=== PATIENT | male | born 1960 | race Caucasian/White ===

== ENCOUNTER 2019-06-03 20:51 | Inpatient (IN) ==
[2019-06-03] MEDS ORDERED: SODIUM CHLORIDE 0.9% 500 ML IV SCH (21:15)
[2019-06-03 21:42] LABS: Hematocrit (blood only) 35.1 % (42-52); Hemoglobin 11.3 g/dL (14.0-18.0); Mean Corpuscular Hemoglobin 30.9 pg (25-34); Mean Corpuscular Hgb Conc 32.2 g/dL (32-36); Mean Corpuscular Volume 95.9 fL (80-100); RDW Coefficient of Variation 14.6 % (11.5-14.5); Red Blood Count 3.66 M/uL (4.7-6.1); White Blood Count 3.04 K/uL (4.8-10.8)
[2019-06-03 22:01] LABS: Albumin Level 3.1 gm/dl (3.4-5.0); BUN Creatinine Ratio 14.5 (10-20); Calcium 9.2 mg/dl (8.5-10.1); Creatinine Clr Calc Pharmacy 95.2 ml/min; Est GFR (African American) 100.4; Est GFR (Non-African American) 86.7; Magnesium 1.6 mg/dl (1.8-2.4); Potassium 3.4 mmol/L (3.5-5.1)
[2019-06-03 22:04] LABS: Albumin Globulin Ratio 0.7 (0.9-2); Bilirubin,Total 0.5 mg/dl (0.2-1); Globulin 4.2 gm/dl (2.5-4.0); Total Protein 7.3 gm/dl (6.4-8.2)
[2019-06-03] MEDS ORDERED: IOVERSOL 100ml IV PRN (22:09)
[2019-06-03] MEDS ORDERED: MAGNESIUM SULFATE / D5W 1 GM/100 ML BAG IV ONE (22:22)
[2019-06-03 22:25] LABS: Appearance Urine Clear (Clear); Bacteria Urine Automated Negative (Negative); Bilirubin Urine Negative (Negative); Blood Urine Negative (Negative); Color Urine Dark Yellow; Glucose Urine UA 3+ (Negative); Ketones Urine Trace (Negative); Leukocyte Esterase Urine Negative (Negative); Nitrite Urine Negative (Negative); Protein Urine Trace (Negative); Specific Gravity Urine 1.033 (1.000-1.030); Urobilinogen Urine Negative (Negative)
[2019-06-03 22:28] LABS: Eosinophils # (auto) 0.05 K/uL (0-0.5); Eosinophils % (auto) 1.6 %; Immature Granulocytes # (auto) 0.01 K/uL (0.00-0.02); Immature Granulocytes % (auto) 0.3 %; Lymphocytes # (auto) 1.25 K/uL (1.2-3.4); Lymphocytes % (auto) 41.1 %; Mean Platelet Volume 10.2 fL (7.4-10.4); Monocytes # (auto) 0.26 K/uL (0.11-0.59); Monocytes % (auto) 8.6 %; Neutrophils # (auto) 1.47 K/uL (1.4-6.5); Neutrophils % (auto) 48.4 %; Platelet Count 68 K/uL (130-400); Platelet Estimate Decreased (Normal)
--- NOTE | 2019-06-03 22:30 | Emergency Department Note ---
Entered by Lamar Pardo acting as a scribe for History of Present Illness General Chief complaint: Diarrhea Stated complaint: BLOOD IN STOOL, DIARRHEA Time Seen by Provider: 06/03/19 21:01 History of Present Illness Provider complaint: diarrhea Onset (ago): hour(s) 2 Pain Consistency: + other (episode) Maximum Pain Intensity: 1 Current Pain Intensity: 8 Quality: + other (diarrhea) Associated symptoms: + denies other symptoms (pain) and + other (mid lower abdominal cramping, rectal pain, blood noted when wiping, resolved nausea, does not feel similar to diverticulitis, chills, nausea when eating or drinking, colon cancer, last chemo treatment 8 days ago) Treatments prior to arrival: other (Compazine for nausea) The patient is a 58 year old male who presents to the ED with complaints of an episode of diarrhea that started 2 hours ago. The patient states that he also had mid lower abdominal cramping and rectal pain. The patient states that he had a few episodes of diarrhea, but on the last episode he noticed blood when he wiped. The patient states that he felt nauseas earlier but he took Compazine which helped. The patient states that when he had the cramping, the pain was an 8/10. The patient states that he is no longer in any pain. The patient notes that he has a history of diverticulitis but states that this does not feel similar to that. The patient notes that he has had chills recently and he gets nauseas every time he eats or drinks. The patient reports that he has colon cancer and his last chemotherapy treatment was 8 days ago. Home Medications Home Medications Medication Instructions Recorded Confirmed Type metformin 1,000 mg PO BIDM 04/18/18 06/03/19 History pioglitazone 30 mg PO QAM 04/18/18 06/03/19 History Probiotic 1 cap PO QAM 08/31/18 06/03/19 History atorvastatin 40 mg PO HS 08/31/18 06/03/19 History ferrous sulfate 325 mg PO Q2D 10/02/18 06/03/19 History cyanocobalamin (vitamin B-12) 5,000 mcg PO QAM 10/13/18 06/03/19 History [Vitamin B-12] acetaminophen [Tylenol] 325 mg PO Q6H PRN 06/03/19 06/03/19 History ondansetron HCl 8 mg PO Q8H 06/03/19 06/03/19 History prochlorperazine maleate 10 mg PO Q6H PRN 06/03/19 06/03/19 History Allergies Allergy/AdvReac Type Severity Reaction Status Date / Time No Known Allergies Allergy Verified 11/23/18 05:34 Past Med/Surg History Medical History (Updated 06/03/19 @ 23:04 by Lamar Pardo) Anemia Anxiety C. 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 Diverticulitis (Acute) Diverticulitis of colon with perforation (Resolved) NO SURGERY DM type 2 (diabetes mellitus, type 2) (Chronic) DVT prophylaxis Dyslipidemia (Chronic) Hiatal hernia left inguinal hernia repair Hydronephrosis (Acute) Hydronephrosis with renal calculous obstruction (Resolved) Hyperlipidemia Kidney stones Kidney stones Left ureteral stone (Acute) Osteoarthritis SOB (shortness of breath) on exertion Surgical History History of colonoscopy History of cystoscopy STONE REMOVAL WITH STENT PLACED History of esophagogastroduodenoscopy (EGD) History of tooth extraction History of vascular access device RIGHT UPPER CHEST PLACED 09/2018 Hx of hernia repair (Chronic) Hx of tonsillectomy (Chronic) Social History Preferred Language: Chinese Communication Ability: Effective Visual Impairment: No Limitations 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 and A total of 10 systems reviewed and were otherwise negative Physical Exam Vital Signs Vital Signs - 24 hr 06/03/19 20:58 06/03/19 22:00 06/03/19 22:22 Temperature 36.7 C Temperature Source Oral Pulse Rate 108 H 98 H Pulse Rate from SpO2 Sensor Pulse Rhythm Regular Pulse Strength Normal Respiratory Rate 16 24 Respiratory Effort / Characteristics Non-Labored Respiratory Depth Normal Respiratory Pattern Regular Blood Pressure 159/99 H 123/75 Blood Pressure Mean 119 92 Blood Pressure Position Sitting Pulse Oximetry 99 Oxygen Delivery Method Room Air Sepsis Recent Fever Within 48 Hours No Sepsis Action Taken by Nursing No Action Required 06/03/19 22:30 06/03/19 22:31 Temperature Temperature Source Pulse Rate 70 72 Pulse Rate from SpO2 Sensor 69 72 Pulse Rhythm Pulse Strength Respiratory Rate 19 20 Respiratory Effort / Characteristics Respiratory Depth Respiratory Pattern Blood Pressure 117/73 Blood Pressure Mean 90 Blood Pressure Position Pulse Oximetry 98 98 Oxygen Delivery Method Sepsis Recent Fever Within 48 Hours Sepsis Action Taken by Nursing GENERAL: Patient is in no acute distress. HEENT: No acute trauma, normocephalic atraumatic, mucous membranes moist, no nasal congestion, no scleral icterus. NECK: No stridor, no adenopathy, no meningismus, trachea is midline. LUNGS: Clear to auscultation bilaterally, no wheeze, no rhonchi, breath sounds equal. HEART: Tachycardic with regular rhythm, no murmurs. ABDOMEN: Soft, bowel sounds positive, no hernias, no peritonitis. Mildly tender to mid lower abdomen and LLQ. EXTREMITIES: No cyanosis or edema, full range of motion of all the joints without pain or difficulty, no signs for acute trauma. NEUROLOGIC: Oriented x 3, no acute motor or sensory deficits, no focal weakness. SKIN: No rash, no jaundice, no diaphoresis. Course Course 2101: Past medical records reviewed. The patient was evaluated in room A11. A complete history and physical exam was performed. 2249: I discussed the patient's case with the on-call Oncologist at [facility]. They recommend admission given his low platelet count and GI bleeding. 2251: I updated the patient on the plan for admission and he verbally agrees and understands. 2256: I discussed the patient's case with Dr. Shirley Dolan. He will evaluate the patient for further management. Consultations Consultation #1: I discussed the patient's case with the on-call Oncologist at [facility]. They recommend admission given his low platelet count and GI bleeding. Time: 22:49 Consultation #2: I discussed the patient's case with Dr. Shirley Dolan. He will evaluate the patient for further management. Time: 22:56 Administered Medications Ioversol (Optiray 320 100ml) 90 ml IV ONCE PRN PRN Reason: Interaction Checking Stop: 06/07/19 22:08 Last Admin: 06/03/19 22:10 Dose: 90 ml Documented by: [id number] Discontinued Medications Sodium Chloride (Nss) 500 mls @ 999 mls/hr IV .Q31M LUIS Stop: 06/03/19 21:45 Last Infusion: 06/03/19 22:03 Dose: 0 mls/hr Documented by: [id number] Admin: 06/03/19 21:32 Dose: 999 mls/hr Documented by: [id number] Magnesium Sulfate/Dextrose (Magnesium Sulfate / D5w) 1 gm in 100 mls @ 100 mls/hr IV ONE ONE Stop: 06/03/19 23:21 Last Admin: 06/03/19 22:34 Dose: 100 mls/hr Documented by: [id number] Medical Decision Making Differential Diagnosis Differentials include diverticulitis, colitis, diverticular abscess, anemia, dehydration, electrolyte imbalance, coagulopathy, low platelet count, food borne illness. Medical Records Attestation: I reviewed the patient's medical records. Home Medications Current Medication List: was personally reviewed by me Laboratory Data Attestation: I reviewed the patient's lab results. Result diagrams: 06/03/19 21:20 06/03/19 21:20 Lab Results 06/03/19 06/03/19 06/03/19 Range/Units 21:20 21:20 21:20 WBC 3.04 L (4.8-10.8) K/uL RBC 3.66 L (4.7-6.1) M/uL Hgb 11.3 L (14.0-18.0) g/dL Hct 35.1 L (42-52) % MCV 95.9 (80-100) fL MCH 30.9 (25-34) pg MCHC 32.2 (32-36) g/dL RDW Std Deviation 50.0 H (36.4-46.3) fL RDW Coeff of Ivette 14.6 H (11.5-14.5) % Plt Count 68 L (130-400) K/uL MPV 10.2 (7.4-10.4) fL Immature Gran % (Auto) 0.3 % Neut % (Auto) 48.4 % Lymph % (Auto) 41.1 % [place] % (Auto) 8.6 % Eos % (Auto) 1.6 % Baso % (Auto) 0.0 % Immature Gran # (Auto) 0.01 (0.00-0.02) K/uL Neut # (Auto) 1.47 (1.4-6.5) K/uL Lymph # (Auto) 1.25 (1.2-3.4) K/uL [place] # (Auto) 0.26 (0.11-0.59) K/uL Eos # (Auto) 0.05 (0-0.5) K/uL Baso # (Auto) 0.00 (0-0.2) K/uL Platelet Estimate Decreased L (Normal) Sodium 138 (136-145) mmol/L Potassium 3.4 L (3.5-5.1) mmol/L Chloride 106 (98-107) mmol/L Carbon Dioxide 26 (21-32) mmol/L Anion Gap 7.0 (3-11) BUN 14 (7-18) mg/dl Creatinine 0.95 (0.6-1.4) mg/dl Est Cr Clr Drug Dosing 95.2 ml/min Est GFR ( Amer) 100.4 Est GFR (Non-Af Amer) 86.7 BUN/Creatinine Ratio 14.5 (10-20) Glucose 184 H (70-99) mg/dl Calcium 9.2 (8.5-10.1) mg/dl Magnesium 1.6 L (1.8-2.4) mg/dl Total Bilirubin 0.5 (0.2-1) mg/dl AST 20 (15-37) U/L ALT 20 (12-78) U/L Alkaline Phosphatase 127 H (45-117) U/L Total Protein 7.3 (6.4-8.2) gm/dl Albumin 3.1 L (3.4-5.0) gm/dl Globulin 4.2 H (2.5-4.0) gm/dl Albumin/Globulin Ratio 0.7 L (0.9-2) Lipase 83 (73-393) U/L Urine Color Dark Yellow Urine Appearance Clear (Clear) Urine pH 5.0 (4.5-7.5) Ur Specific [place] 1.033 H (1.000-1.030) Urine Protein Trace H (Negative) Urine Glucose (UA) 3+ H (Negative) Urine Ketones Trace H (Negative) Urine Blood Negative (Negative) Urine Nitrite Negative (Negative) Urine Bilirubin Negative (Negative) Urine Urobilinogen Negative (Negative) Ur Leukocyte Esterase Negative (Negative) Urine WBC (Auto) 1-5 (0-5) /hpf Urine RBC (Auto) 5-10 H (0-4) /hpf U Hyaline Cast (Auto) 1-5 (0-5) /lpf U Epithel Cells (Auto) 10-20 H (0-5) /lpf Urine Bacteria (Auto) Negative (Negative) Urine Crystals Not Reportable Calcium Oxalate Crystal Present A (None Prsent) Imaging Data Radiologist's Impression: Radiology results as stated below per my review and the radiologist's interpretation: CT abd pelvis IV con only CLINICAL HISTORY: 58 years-old Male presenting with low left abdominal pain, blo denise stool, history of colon cancer, undergoing chemotherapy. TECHNIQUE: Multidetector CT of the abdomen and pelvis was performed after the administration of intravenous contrast. IV contrast: 90 mL of Optiray 320. One or more dose lowering techniques were used consistent with the principles of ALARA (as low as reasonably achievable), including automatic exposure control, mA or kV adjustment to individual patient size, and/or use of iterative reconstruction. COMPARISON: 02/03/2019. CT DOSE (mGy.cm): The estimated cumulative dose is 2883.06 mGy.cm. FINDINGS: Individualized Education Plan Aide topogram: Unremarkable. Lung bases: Mild multichamber enlargement of the heart. Coronary artery calcification. No pericardial or pleural effusion. Minimal dependent changes likely atelectasis. Liver: Normal morphology. No liver lesion. Patent hepatic vasculature. Biliary: No intrahepatic or extrahepatic biliary ductal dilatation. Gallbladder contains gallstones. Pancreas: Moderate parenchymal atrophy. Spleen: Enlarged, measuring over 17 cm in maximal sagittal dimension. Adrenal glands: Normal. Kidneys and ureters: Few cysts noted. There may be atrophy of the left kidney in comparison to the right. No hydronephrosis. Limited evaluation for nephrolithiasis given the excretion of contrast. Bilateral urothelial thickening is suspected, which may have been present on the prior exam. Bladder: Circumferential bladder wall thickening there is suspected allowing for underdistention. Pelvic organs: Prostate enlargement likely secondary to benign prostatic hyperplasia. Bowel: Interval development of circumferential diffuse wall thickening of the rectum extending proximally to involve the entire colon. The left colon appears to be predominantly affected by some mucosal edema. The right colon suggests intramural fat deposition. The site of a focal proximal sigmoid lesion is minimally appreciated. The appendix is normal. No bowel obstruction. Small hiatal hernia. Peritoneal cavity: Evidence of peritoneal thickening and trace free fluid. There is significant perirectal infiltrative change as well as presacral and retroperitoneal fluid and infiltration. Infiltrative change minimally involves the sigmoid mesocolon. No free intraperitoneal gas. Lymph nodes: Previously noted enlarged left internal iliac lymph nodes have decreased in size. Prior aortocaval and periaortic lymph nodes have also decreased in size. The right retrocrural lymph node now measures 9 mm in short axis, previously 15 mm. No pathologically enlarged lymph nodes in the current exam. Vasculature: Atherosclerosis of the normal caliber abdominal aorta. IVC patent. There is suggestion of varices in a paraesophageal, perisplenic, and mesenteric distribution. Abdominal wall: Small fat-containing umbilical hernia. Mild body wall edema. Musculoskeletal: Degenerative changes of the spine. No destructive osseous lesion. IMPRESSION: 1. Interval development of diffuse colonic wall thickening. This suggests the presence of a colitis, possibly inflammatory in response to chemotherapy or potentially infectious. 2. Significant retroperitoneal predominant edema most severely affecting the presacral/perirectal region and lower quadrants. Presumably this is a response to chemotherapy and is nonspecific edema or inflammation. 3. No bowel obstruction. 4. Significant interval decrease in size of multifocal lymphadenopathy seen on prior exams. 5. No evidence of a new site of metastatic disease. 6. Portal hypertension suggested by splenomegaly and varices. There is no morphologic evidence of cirrhosis. If there is no underlying hepatocellular risk factors for fibrosis (hepatitis B, hepatitis C, EtOH, etc.), consider s inusoidal obstruction syndrome as a possibility for this finding. Presumably splenomegaly is not related to metastatic involvement except in the case of a separate known underlying lymphoproliferative disease. Electronically signed by: Dale Gutierres M.D. 06/03/2019 10:33 PM ECG Data Attestation: I personally reviewed and interpreted this ECG as follows: Indication: + tachycardia Rate (beats per minute): 98 Rhythm: + normal sinus ECG ST segments: no ST elevation ECG Findings: + Other (old anterior septal infarct, QTC 436); no PVCs Blood Pressure Blood Pressure Findings: Normal blood pressure Blood Pressure Disposition: did not require urgent referral MDM Narrative There is a low white blood cell count at 3, this looks baseline looking back at previous testing. Patient's hemoglobin is low at 11, this value was baseline as well looking back at previous testing. Platelet count was low, this was a new finding. Patient's potassium was slightly low although not critical, no kidney failure. Magnesium low at 1.6. No worrisome liver enzyme elevation. No evidence for pancreatitis. Urinalysis did not show infection. Abdominal and pelvis CT shows colitis. There was some edema in the retroperitoneal and perirectal area. Portal hypertension was suspected. No bowel obstruction. Patient was given a 500 cc saline bolus. He was given a dose of IV magnesium. He did not require anything for pain. I did speak with oncology. The case was discussed. Admission/observation was recommended given his history and findings. I spoke to the patient, I talked with case management. The on-call hospitalist has been consulted. In short, the patient has colitis and rectal bleeding. He has a low platelet count. His presentation may be from his chemotherapy versus some sort of infectious process. Observation and hemoglobin/platelet count trending is required. Impression & Plan Rectal bleeding, Colitis, Thrombocytopenia, Lower abdominal pain Discharge Plan Visit Data Chief Complaint: Diarrhea Stated Complaint: BLOOD IN STOOL, DIARRHEA ED Provider: Alton Landaverde Discharge Problem: Rectal bleeding, Colitis, Thrombocytopenia, Lower abdominal pain Patient Disposition: Being Evaluated by Hospitalist Forms Stand Alone Forms: My [facility] Prescriptions Prescriptions: No Action metformin 1,000 mg Tablet 1,000 mg PO BIDM RF: 0 pioglitazone 30 mg Tablet 30 mg PO QAM RF: 0 acetaminophen [Tylenol] 325 mg Tablet 325 mg PO Q6H PRN (Reason: Pain) RF: 0 ondansetron HCl 8 mg tablet 8 mg PO Q8H RF: 0 prochlorperazine maleate 10 mg tablet 10 mg PO Q6H PRN (Reason: Nausea) RF: 0 atorvastatin 40 mg Tablet 40 mg PO HS RF: 0 Probiotic 10 billion cell Capsule 1 cap PO QAM RF: 0 ferrous sulfate 325 mg (65 mg iron) Tablet 325 mg PO Q2D RF: 0 cyanocobalamin (vitamin B-12) [Vitamin B-12] 5,000 mcg Tablet, Sublingual 5,000 mcg PO QAM RF: 0 Referrals Referrals: Duong Matt MD [Primary Care Provider] - The scribe's documentation has been prepared under my direction and personally reviewed by me in its entirety. I confirm that the note above accurately reflects all work, treatment, procedures, and medical decision making performed by me.
--- NOTE | 2019-06-03 22:35 | CT Scan Report ---
CT abd pelvis IV con only CLINICAL HISTORY: 58 years-old Male presenting with low left abdominal pain, bloody stool, history of colon cancer, undergoing chemotherapy. TECHNIQUE: Multidetector CT of the abdomen and pelvis was performed after the administration of intra venous contrast. IV contrast: 90 mL of Optiray 320. One or more dose lowering techniques were used co nsistent with the principles of ALARA (as low as reasonably achievable), including automatic exposure control, mA or kV adjustment to individual patient size, and/or use of iterative reconstruction. COMPARISON: 02/03/2019. CT DOSE (mGy.cm): The estimated cumulative dose is 2883.06 mGy.cm. 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 Lung bases: Mild multichamber enlargement of the heart. Coronary artery calcification. No pericardial or pleural effusion. Minimal dependent changes likely atelectasis. Liver: Normal morphology. No liver lesion. Patent hepatic vasculature. Biliary: No intrahepatic or extrahepatic biliary ductal dilatation. Gallbladder contains gallstones. Pancreas: Moderate parenchymal atrophy. Spleen: Enlarged, measuring over 17 cm in maximal sagittal dimension. Adrenal glands: Normal. Kidneys and ureters: Few cysts noted. There may be atrophy of the left kidney in comparison to the ri ght. No hydronephrosis. Limited evaluation for nephrolithiasis given the excretion of contrast. Bilat eral urothelial thickening is suspected, which may have been present on the prior exam. Bladder: Circumferential bladder wall thickening there is suspected allowing for underdistention. Pelvic organs: Prostate enlargement likely secondary to benign prostatic hyperplasia. Bowel: Interval development of circumferential diffuse wall thickening of the rectum extending proxim ally to involve the entire colon. The left colon appears to be predominantly affected by some mucosal edema. The right colon suggests intramural fat deposition. The site of a focal proximal sigmoid lesi on is minimally appreciated. The appendix is normal. No bowel obstruction. Small hiatal hernia. Peritoneal cavity: Evidence of peritoneal thickening and trace free fluid. There is significant perir ectal infiltrative change as well as presacral and retroperitoneal fluid and infiltration. Infiltrati ve change minimally involves the sigmoid mesocolon. No free intraperitoneal gas. Lymph nodes: Previously noted enlarged left internal iliac lymph nodes have decreased in size. Prior aortocaval and periaortic lymph nodes have also decreased in size. The right retrocrural lymph node n ow measures 9 mm in short axis, previously 15 mm. No pathologically enlarged lymph nodes in the curre nt exam. Vasculature: Atherosclerosis of the normal caliber abdominal aorta. IVC patent. There is suggestion o f varices in a paraesophageal, perisplenic, and mesenteric distribution. Abdominal wall: Small fat-containing umbilical hernia. Mild body wall edema. Musculoskeletal: Degenerative changes of the spine. No destructive osseous lesion. IMPRESSION: 1. Interval development of diffuse colonic wall thickening. This suggests the presence of a colitis, possibly inflammatory in response to chemotherapy or potentially infectious. 2. Significant retroperitoneal predominant edema most severely affecting the presacral/perirectal re gion and lower quadrants. Presumably this is a response to chemotherapy and is nonspecific edema or i nflammation. 3. No bowel obstruction. 4. Significant interval decrease in size of multifocal lymphadenopathy seen on prior exams. 5. No evidence of a new site of metastatic disease. 6. Portal hypertension suggested by splenomegaly and varices. There is no morphologic evidence of ci rrhosis. If there is no underlying hepatocellular risk factors for fibrosis (hepatitis B, hepatitis C , EtOH, etc.), consider sinusoidal obstruction syndrome as a possibility for this finding. Presumably splenomegaly is not related to metastatic involvement except in the case of a separate known underly ing lymphoproliferative disease. Electronically signed by: Dale Gutierres M.D. 06/03/2019 10:33 PM
[2019-06-03] MEDS ORDERED: cefTRIAXone SODIUM 1,000 MG/50 ML BAG IV STA (23:00)
[2019-06-03 23:05] LABS: Calcium Oxalate Crystals Urine Present (None Prsent)
[2019-06-03] MEDS ORDERED: LACTATED RINGER'S 1,000 ML IV ONE (23:12)
[2019-06-03] MEDS ORDERED: POTASSIUM CHLORIDE 20 MEQ TABCR PO STA (23:12)
[2019-06-03] MEDS ORDERED: MoRPHine SULFATE 4 MG/ML 1 ML CARP\\VIAL IV PRN (23:13)
[2019-06-03] MEDS ORDERED: TRAMADOL HCL 50 MG TABLET PO PRN (23:13)
[2019-06-03] MEDS ORDERED: PROMETHAZINE HCL 12.5 MG in SODIUM CHLORIDE 0.9% 50 ML IV PRN (23:13)
--- NOTE | 2019-06-04 00:50 | History & Physical Report ---
Date of Service June 04, 2019 Assessment & Plan (1) Colitis: Immunocompromised patient hx colon cancer status stage IV status post surgery ongoing chemotherapy Rule out recurrent C. difficile/Salmonella infection Patient currently hemodynamically stable Patient not septic for now. DM 2 on oral meds, reasonable control as of recent hemoglobin A1c of 7.12 Nov 2018 hyperlipidemia on statin Rx chronic anemia, hemoglobin at baseline Hypokalemia secondary to diarrhea past tobacco abuse GMF Clear liquids for now IV Ceftriaxone, Flagyl for hemorrhagic colitis Stool cultures, C. difficile ID consult if with recurrent C. difficile/Salmonella infection GI consult if stool negative for pathogens RE colitis Trend H&H, transfuse PRBC if hemoglobin less than 7 and/or for symptomatic anemia Replace electrolytes Basal insulin, ISS BG goal [id number], carb count coverage DVT prophylaxis. SCDs RE GI bleed Full code History of Present Illness / Primary Care Provider: Duong Matt MD History obtained from patient and records. Medical history significant for colon cancer status stage IV status post surgery ongoing chemotherapy, DM 2 on oral meds, hyperlipidemia, urolithiasis, chronic anemia (baseline hemoglobin 10-11), history C. difficile/Salmonella infection status post treatment as per records, past tobacco abuse. Recent confinement May 2018 for C. difficile colitis status post oral vancomycin course. Stool cultures also showed Salmonella infection status post Cipro Flagyl Rx. 1 day history of achy lower abdominal cramping followed by bloody diarrhea. Some nausea, no emesis, no fever, no chills. No recent antibiotic Rx. Recent chemotherapy session last week. No recent travel, no known sick contacts. 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 Allergies Allergy/AdvReac Type Severity Reaction Status Date / Time No Known Allergies Allergy Verified 11/23/18 05:34 Home Medications Home Medications Medication Instructions Recorded Confirmed Type metformin 1,000 mg PO BIDM 04/18/18 06/03/19 History pioglitazone 30 mg PO QAM 04/18/18 06/03/19 History Probiotic 1 cap PO QAM 08/31/18 06/03/19 History atorvastatin 40 mg PO HS 08/31/18 06/03/19 History ferrous sulfate 325 mg PO Q2D 10/02/18 06/03/19 History cyanocobalamin (vitamin B-12) 5,000 mcg PO QAM 10/13/18 06/03/19 History [Vitamin B-12] acetaminophen [Tylenol] 325 mg PO Q6H PRN 06/03/19 06/03/19 History ondansetron HCl 8 mg PO Q8H 06/03/19 06/03/19 History prochlorperazine maleate 10 mg PO Q6H PRN 06/03/19 06/03/19 History Past Med/Surg History Medical History (Updated 06/03/19 @ 23:04 by Lamar Pardo) Anemia Anxiety C. 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 Diverticulitis (Acute) Diverticulitis of colon with perforation (Resolved) NO SURGERY DM type 2 (diabetes mellitus, type 2) (Chronic) DVT prophylaxis Dyslipidemia (Chronic) Hiatal hernia left inguinal hernia repair Hydronephrosis (Acute) Hydronephrosis with renal calculous obstruction (Resolved) Hyperlipidemia Kidney stones Kidney stones Left ureteral stone (Acute) Osteoarthritis SOB (shortness of breath) on exertion Surgical History History of colonoscopy History of cystoscopy STONE REMOVAL WITH STENT PLACED History of esophagogastroduodenoscopy (EGD) History of tooth extraction History of vascular access device RIGHT UPPER CHEST PLACED 09/2018 Hx of hernia repair (Chronic) Hx of tonsillectomy (Chronic) Social History Preferred Language: [place] Communication Ability: Effective Visual Impairment: No 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 Beliefs That Will Affect Care: None Current Living Situation: Family and Significant Other Other Information That Helps Us Care for You: No Feels Safe at Home: Yes Safety Concerns: Feels Safe At This Time Smoking Status: Never smoker Tobacco Type: cigarettes and smokeless tobacco ; Do You Dip or Chew Tobacco: No ; Second Hand Exposure: Yes (daughter smokes) ; Hx Alcohol Use: No Hx Substance Use: No Review of Systems Review of Systems: As per HPI, all 10 systems reviewed, all other ROS negative Physical Exam Physical Exam: GENERAL: Obese, pleasant, no respiratory distress SKIN: Pallor, warm HEENT: Bespectacled, pale palpebral conjunctivae, no ptosis, dry buccal mucosa NECK : Supple, short, no tenderness CHEST : Decreased breath sounds, no tenderness HEART : RRR, no obvious murmurs ABDOMEN: distention, left-sided abdominal tenderness EXTREMITIES : no LE swelling, no LE tenderness, no other conspicuous deformities noted NEUROLOGIC : Coherent, no facial asymmetry, no other gross focality Results & Data Vital Signs (Past 12 Hours) Vital Signs Temp Pulse Pulse Resp BP BP Pulse Ox 06/04/19 00:30 71 19 131/84 97 06/04/19 00:00 73 17 109/68 98 06/03/19 23:34 70 16 113/71 98 06/03/19 23:30 76 19 113/71 98 06/03/19 23:00 70 15 117/77 99 06/03/19 22:31 72 20 98 06/03/19 22:30 70 19 117/73 98 06/03/19 22:22 98 H 24 06/03/19 22:00 123/75 06/03/19 20:58 36.7 C 108 H 16 159/99 H 99 Laboratory Results Laboratory Results WBC 3.04 K/uL (4.8-10.8) L 06/03/19 21:20 RBC 3.66 M/uL (4.7-6.1) L 06/03/19 21:20 Hgb 11.3 g/dL (14.0-18.0) L 06/03/19 21:20 Hct 35.1 % (42-52) L 06/03/19 21:20 MCV 95.9 fL (80-100) 06/03/19 21:20 MCH 30.9 pg (25-34) 06/03/19 21:20 MCHC 32.2 g/dL (32-36) 06/03/19 21:20 RDW Std Deviation 50.0 fL (36.4-46.3) H 06/03/19 21:20 RDW Coeff of Ivette 14.6 % (11.5-14.5) H 06/03/19 21:20 Plt Count 68 K/uL (130-400) L 06/03/19 21:20 MPV 10.2 fL (7.4-10.4) 06/03/19 21:20 Immature Gran % (Auto) 0.3 % 06/03/19 21:20 Neut % (Auto) 48.4 % 06/03/19 21:20 Lymph % (Auto) 41.1 % 06/03/19 21:20 [place] % (Auto) 8.6 % 06/03/19 21:20 Eos % (Auto) 1.6 % 06/03/19 21:20 Baso % (Auto) 0.0 % 06/03/19 21:20 Immature Gran # (Auto) 0.01 K/uL (0.00-0.02) 06/03/19 21:20 Neut # (Auto) 1.47 K/uL (1.4-6.5) 06/03/19 21:20 Lymph # (Auto) 1.25 K/uL (1.2-3.4) 06/03/19 21:20 [place] # (Auto) 0.26 K/uL (0.11-0.59) 06/03/19 21:20 Eos # (Auto) 0.05 K/uL (0-0.5) 06/03/19 21:20 Baso # (Auto) 0.00 K/uL (0-0.2) 06/03/19 21:20 Platelet Estimate Decreased (Normal) L 06/03/19 21:20 Sodium 138 mmol/L (136-145) 06/03/19 21:20 Potassium 3.4 mmol/L (3.5-5.1) L 06/03/19 21:20 Chloride 106 mmol/L (98-107) 06/03/19 21:20 Carbon Dioxide 26 mmol/L (21-32) 06/03/19 21:20 Anion Gap 7.0 (3-11) 06/03/19 21:20 BUN 14 mg/dl (7-18) 06/03/19 21:20 Creatinine 0.95 mg/dl (0.6-1.4) 06/03/19 21:20 Est Cr Clr Drug Dosing 95.2 ml/min 06/03/19 21:20 Est GFR ( Amer) 100.4 06/03/19 21:20 Est GFR (Non-Af Amer) 86.7 06/03/19 21:20 BUN/Creatinine Ratio 14.5 (10-20) 06/03/19 21:20 Glucose 184 mg/dl (70-99) H 06/03/19 21:20 Calcium 9.2 mg/dl (8.5-10.1) 06/03/19 21:20 Magnesium 1.6 mg/dl (1.8-2.4) L 06/03/19 21:20 Total Bilirubin 0.5 mg/dl (0.2-1) 06/03/19 21:20 AST 20 U/L (15-37) 06/03/19 21:20 ALT 20 U/L (12-78) 06/03/19 21:20 Alkaline Phosphatase 127 U/L (45-117) H 06/03/19 21:20 Total Protein 7.3 gm/dl (6.4-8.2) 06/03/19 21:20 Albumin 3.1 gm/dl (3.4-5.0) L 06/03/19 21:20 Globulin 4.2 gm/dl (2.5-4.0) H 06/03/19 21:20 Albumin/Globulin Ratio 0.7 (0.9-2) L 06/03/19 21:20 Lipase 83 U/L (73-393) 06/03/19 21:20 Urine Color Dark Yellow 06/03/19 21:20 Urine Appearance Clear (Clear) 06/03/19 21:20 Urine pH 5.0 (4.5-7.5) 06/03/19 21:20 Ur Specific [place] 1.033 (1.000-1.030) H 06/03/19 21:20 Urine Protein Trace (Negative) H 06/03/19 21:20 Urine Glucose (UA) 3+ (Negative) H 06/03/19 21:20 Urine Ketones Trace (Negative) H 06/03/19 21:20 Urine Blood Negative (Negative) 06/03/19 21:20 Urine Nitrite Negative (Negative) 06/03/19 21:20 Urine Bilirubin Negative (Negative) 06/03/19 21:20 Urine Urobilinogen Negative (Negative) 06/03/19 21:20 Ur Leukocyte Esterase Negative (Negative) 06/03/19 21:20 Urine WBC (Auto) 1-5 /hpf (0-5) 06/03/19 21:20 Urine RBC (Auto) 5-10 /hpf (0-4) H 11/28/19 21:20 U Hyaline Cast (Auto) 1-5 /lpf (0-5) 06/03/19 21:20 U Epithel Cells (Auto) 10-20 /lpf (0-5) H 06/03/19 21:20 Urine Bacteria (Auto) Negative (Negative) 06/03/19 21:20 Urine Crystals Not Reportable 06/03/19 21:20 Calcium Oxalate Crystal Present (None Prsent) A 06/03/19 21:[address] abdomen pelvis: 1. Interval development of diffuse colonic wall thickening. This suggests the presence of a colitis, possibly inflammatory in response to chemotherapy or potentially infectious. 2. Significant retroperitoneal predominant edema most severely affecting the presacral/perirectal region and lower quadrants. Presumably this is a response to chemotherapy and is nonspecific edema or inflammation. 3. No bowel obstruction. 4. Significant interval decrease in size of multifocal lymphadenopathy seen on prior exams. 5. No evidence of a new site of metastatic disease. 6. Portal hypertension suggested by splenomegaly and varices. There is no morphologic evidence of cirrhosis. If there is no underlying hepatocellular risk factors for fibrosis (hepatitis B, hepatitis C, EtOH, etc.), consider sinusoidal obstruction syndrome as a possibility for this finding. Presumably splenomegaly is not related to metastatic involvement except in the case of a separate known underlying lymphoproliferative disease. EKG as per my interpretation rate 100, NSR, LAD, LAFB, no ischemia
[2019-06-04] MEDS ORDERED: INSULIN GLARGINE SOLOSTAR 100 UNITS/ML 3 ML PEN SC STA (01:50)
[2019-06-04] MEDS ORDERED: CARBOHYDRATES FOR HYPOGLYCEMIA PO PRN (01:50)
[2019-06-04] MEDS ORDERED: DEXTROSE 50% 50 ML SYRINGE IV PRN (01:50)
[2019-06-04] MEDS ORDERED: ACETAMINOPHEN 325 MG TAB PO PRN (01:50)
[2019-06-04] MEDS ORDERED: GLUCOSE 40% GEL 15 GM TUBE PO PRN (01:50)
[2019-06-04] MEDS ORDERED: GLUCOSE 10 TABS/TUBE PO PRN (01:50)
[2019-06-04] MEDS ORDERED: GLUCAGON FOR INJ 1 MG VIAL SQ PRN (01:50)
[2019-06-04] MEDS: metroNIDAZOLE 500 MG/100 ML BAG IV SCH ×3 (02:42→17:38)
[2019-06-04] MEDS: INSULIN ASPART 100 UNITS/ML 3 ML PEN SC SCH ×5 (02:43→20:21)
[2019-06-04] MEDS ORDERED: Nursing to Pharmacy Communication ONE (04:00)
[2019-06-04 05:36] LABS: Hematocrit (blood only) 32.5 % (42-52); Hemoglobin 10.5 g/dL (14.0-18.0); Mean Corpuscular Hemoglobin 30.7 pg (25-34); Mean Corpuscular Hgb Conc 32.3 g/dL (32-36); RDW Coefficient of Variation 14.8 % (11.5-14.5); RDW Standard Deviation 50.8 fL (36.4-46.3); Red Blood Count 3.42 M/uL (4.7-6.1); White Blood Count 2.59 K/uL (4.8-10.8)
[2019-06-04 05:40] LABS: Mean Platelet Volume 9.4 fL (7.4-10.4); Platelet Count 66 K/uL (130-400)
[2019-06-04 06:00] LABS: Eosinophils # (auto) 0.07 K/uL (0-0.5); Eosinophils % (auto) 2.7 %; Immature Granulocytes # (auto) 0.01 K/uL (0.00-0.02); Immature Granulocytes % (auto) 0.4 %; Lymphocytes # (auto) 1.19 K/uL (1.2-3.4); Lymphocytes % (auto) 45.9 %; Monocytes # (auto) 0.25 K/uL (0.11-0.59); Monocytes % (auto) 9.7 %; Neutrophils # (auto) 1.07 K/uL (1.4-6.5); Neutrophils % (auto) 41.3 %
[2019-06-04 06:04] LABS: Giant Platelets 2+
[2019-06-04 06:12] LABS: BUN Creatinine Ratio 14.8 (10-20); Calcium 8.8 mg/dl (8.5-10.1); Creatinine Clr Calc Pharmacy 133.5 ml/min; Est GFR (African American) 120.3; Est GFR (Non-African American) 103.8; Magnesium 1.8 mg/dl (1.8-2.4); Potassium 3.8 mmol/L (3.5-5.1)
[2019-06-04 07:17] LABS: Estimated Average Glucose 171 mg/dl; Hemoglobin A1C 7.6 % (4.5-5.6)
[2019-06-04] MEDS: FERROUS SULFATE 325 MG TAB PO SCH (09:02)
[2019-06-04 12:07] LABS: Hematocrit (blood only) 32.7 % (42-52); Hemoglobin 10.4 g/dL (14.0-18.0)
--- NOTE | 2019-06-04 15:33 | Gastrointestinal Consultation ---
Date of Consultation June 04, 2019 Assessment & Plan (1) Rectal bleedin58 year old male w/ history of T2DM, dyslipidemia, diverticulitis, UTI, kidney stone, hydronephrosis s/p lithotripsy for L kidney stone, salmonella, c.diff, recurrent diverticulitis w/ contained perforation in April diagnosed w/ descending colon adenocarcinoma in September following w/ oncology on 5- Fluorouracil, leucovorin, Avastin admitted w/ rectal bleeding, cramping and diarrhea x 1 day which has since resolved. DDX discussed. He is awake, alert and oriented w/ stable vital signs and stable HGB. - check c.diff - check stool culture - Trend HGB, HCT - Monitor and document all GI output - Transfuse PRN - No GI contraindication to a clear liquid diet - If no infection present and diarrhea, rectal bleeding persists, consider repeat colonoscopy - Continue symptomatic management, electrolyte management per the primary service - OP evaluation for liver cirrhosis, will need OP serology Thank you for allowing us to participate in the care of this patient. Please call with any acute changes, questions or concerns. Please see addendum below with additional recommendation from my supervising physician. Supervising Physician Co-Signing Physician Notes I performed a history and physical examination of the patient, including specifically on physical exam - soft, nontender abdomen. I have discussed the patient's management with Brenda. Please refer to the nurse practitioner's note for the documented findings and plan of care. 58 yrs old male patient with advanced stage Colon cancer in descending colon, not resected yet and on neoadjuvent chemotherapy, presented with minimal rectal bleeding and diarrhea which resolved in the hospital. Currently on ABx. Plan: Given spontaneous resolution of symptoms will hold off on endoscopy for now. If diarrhea recurs then may consider colonoscopy. If diarrhea recurs then plz get stool studies. Recall GI if needed. History of Present Illness Reason for Consultation: diarrhea, rectal bleeding Requesting Physician: Judith Attending Physician: Divya Cabrera MD History of Present Illness 58 year old male w/ history of T2DM, dyslipidemia, diverticulitis, UTI, kidney stone, hydronephrosis s/p lithotripsy for L kidney stone, salmonella, c.diff, recurrent diverticulitis w/ contained perforation in April diagnosed w/ descending colon adenocarcinoma in September following w/ oncology on 5- Fluorouracil, leucovorin, Avastin combination who presents though the ED w/ abd pain, diarrhe and rectal bleeding. Notes he has chronic diarrhea, typically move s bowels 4-5 times in the AM and again 2-3 times in the evening. This has been his normal since starting chemotherapy. Notes that about 48 hours ago he started to see BRB w/ stool. This has occured x 2 episodes. Note BRB in the toilet bowl and some light red blood on toliet tissue. No black stools. Associated w/ lower abd cramping. Since admission, no further cramping, pain, bloody BM. No fever, c hills, CP, SOB. No sick contacts. He is awake, alert and oriented. He is afebrile w/o leukocytosis. Vital signs stable, HGB stable from baseline at 10.4 without BUN elevation EGD 2019: Normal upper third of esophagus, middle third of esophagus and lower third of esophagus.Z-line regular, 40 cm from the incisors. Erythematous mucosa in the antrum. Biopsied.Normal examined duodenum. Biopsied. Colonoscopy 2019: Rule out malignancy, partially obstructing tumor in the descending colon. Biopsied. Tattooed. The procedure was aborted due to bowel stenosis c.diff 05/15:positive c.diff 04/25:negative CT 05/25: Interval development of diffuse colonic wall thickening. This suggests the presence of a colitis, possibly inflammatory in response to chemotherapy or potentially infectious. Significant retroperitoneal predominant edema most severely affecting the presacral/perirectal region and lower quadrants. Presumably this is a response to chemotherapy and is nonspecific edema or inflammation. No bowel obstruction. Significant interval decrease in size of multifocal lymphadenopathy seen on prior exams.No evidence of a new site of metastatic disease. Portal hypertension suggested by splenomegaly and varices. There is no morphologic evidence of cirrhosis. If there is no underlying hepatocellular risk factors for fibrosis (hepatitis B, hepatitis C, EtOH, etc.), consider sinusoidal obstruction syndrome as a possibility for this finding. Presumably splenomegaly is not related to metastatic involvement except in the case of a separate known underlying lymphoproliferative disease. CT 09/22: Increasing mediastinal, retrocrural, and retroperitoneal lymphadenopathy as described.Descending colonic mass.4 millimeter left UVJ calculus without significant hydroureteronephrosis . CT 05/14: Interval development of moderate inflammation of the transverse colon, most likely infectious or inflammatory colitis. Persistent though diminished inflammatory change at the proximal sigmoid colon, likely evolving acute diverticulitis. No abscess or extraluminal gas on the current exam. Partially obstructing 4 mm distal left ureteral calculus with minimal left hydronephrosis evidence by delayed perfusion. Additional nonobstructing left renal calculi. Interval removal of the left ureteral stent. Enlarged retroperitoneal lymph nodes. While these may be reactive, recommend attention on follow-up given their pathologic enlargement. Suspected hepatic steatosis. Bronchial wall thickening and subsegmental mucous plugging with atelectasis at the left lung base CT 04/25:No change in appearance of a focus of extraluminal gas with moderate inflammation adjacent to the proximal sigmoid colon since CT of April 18, 2018. This suggests a contained perforation. Etiology not clear on this exam although statistically due diverticulitis although definite diverticulum not identified. A follow-up CT in one month to ensure resolution is recommended to exclude the less likely possibility of an underlying neoplasm as the etiology. Left ureteral stent in place. Interval lithotripsy with no ureteral calculus/fragment identified. Multiple left renal calculi/fragments. CT 04/18:Moderate circumferential wall thickening of the proximal sigmoid colon with pericolonic stranding trace and mild reactive free fluid suggests acute colitis, possibly from infectious, inflammatory or ischemic etiology. Extralum inal air adjacent to the antimesenteric margin is compatible with contained perforation. No drainable fluid collection. Moderate left-sided hydroureteronephrosis secondary to a 1.0 x 0.8 x 1.5 cm calculus of the mid left ureter at the level of L3-L4. Additional nonobstructing left nephrolithiasis noted. Cholelithiasis.No bowel obstruction.Additional findings as above. Family history of GI CA:none Allergies Allergy/AdvReac Type Severity Reaction Status Date / Time No Known Allergies Allergy Verified 11/23/18 05:34 Home Medications Home Medications Medication Instructions Recorded Confirmed Type metformin 1,000 mg PO BIDM 04/18/18 06/03/19 History pioglitazone 30 mg PO QAM 04/18/18 06/03/19 History Probiotic 1 cap PO QAM 08/31/18 06/03/19 History atorvastatin 40 mg PO HS 08/31/18 06/03/19 History ferrous sulfate 325 mg PO Q2D 10/02/18 06/03/19 History cyanocobalamin (vitamin B-12) 5,000 mcg PO QAM 10/13/18 06/03/19 History [Vitamin B-12] acetaminophen [Tylenol] 325 mg PO Q6H PRN 06/03/19 06/03/19 History ondansetron HCl 8 mg PO Q8H 06/03/19 06/03/19 History prochlorperazine maleate 10 mg PO Q6H PRN 06/03/19 06/03/19 History Patient History Medical History (Updated 06/03/19 @ 23:04 by Lamar Pardo) Anemia Anxiety C. 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 Diverticulitis (Acute) Diverticulitis of colon with perforation (Resolved) NO SURGERY DM type 2 (diabetes mellitus, type 2) (Chronic) DVT prophylaxis Dyslipidemia (Chronic) Hiatal hernia left inguinal hernia repair Hydronephrosis (Acute) Hydronephrosis with renal calculous obstruction (Resolved) Hyperlipidemia Kidney stones Kidney stones Left ureteral stone (Acute) Osteoarthritis SOB (shortness of breath) on exertion Surgical History History of colonoscopy History of cystoscopy STONE REMOVAL WITH STENT PLACED History of esophagogastroduodenoscopy (EGD) History of tooth extraction History of vascular access device RIGHT UPPER CHEST PLACED 09/2018 Hx of hernia repair (Chronic) Hx of tonsillectomy (Chronic) Social History Preferred Language: Latvian Communication Ability: Effective Visual Impairment: No Limitations Production Sorter Required: No Beliefs That Will Affect Care: None Current Living Situation: Family and Significant Other Other Information That Helps Us Care for You: No Feels Safe at Home: Yes Safety Concerns: Feels Safe At This Time Smoking Status: Never smoker Tobacco Type: cigarettes and smokeless tobacco ; Do You Dip or Chew Tobacco: No ; Second Hand Exposure: Yes (daughter smokes) ; Hx Alcohol Use: No Hx Substance Use: No Review of Systems Constitutional: no fever, no chills and no fatigue Respiratory: no cough and no dyspnea Cardiovascular: no chest pain at rest and no dyspnea Gastrointestinal: no abdominal pain, no coffee ground emesis, no hematemesis, no blood in stools (last episode was yesterday) and no melena Physical Exam Constitutional: well developed and well nourished; no acute distress Neck: trachea midline Respiratory: normal respiratory effort Cardiovascular: Rate/Rhythm: regular rate and regular rhythm Gastrointestinal (Abdomen): Inspection/Auscultation: normal bowel sounds Percussion/Palpation: abdomen soft; abdomen nontender, no guarding and abdomen not rigid Skin: no rashes, warm and dry Results & Data Vital Signs (Past 12 Hours) Vital Signs Temp Pulse Resp BP BP Pulse Ox 06/04/19 11:14 36.6 C 66 18 105/67 96 06/04/19 07:06 36.4 C L 70 18 131/79 98 Laboratory Results 06/04/19 06/04/19 06/04/19 Range/Units 12:09 11:58 07:39 WBC (4.8-10.8) K/uL RBC (4.7-6.1) M/uL Hgb 10.4 L (14.0-18.0) g/dL Hct 32.7 L (42-52) % MCV (80-100) fL MCH (25-34) pg MCHC (32-36) g/dL RDW Std Deviation (36.4-46.3) fL RDW Coeff of Ivette (11.5-14.5) % Plt Count (130-400) K/uL MPV (7.4-10.4) fL Immature Gran % (Auto) % Neut % (Auto) % Lymph % (Auto) % [place] % (Auto) % Eos % (Auto) % Baso % (Auto) % Immature Gran # (Auto) (0.00-0.02) K/uL Neut # (Auto) (1.4-6.5) K/uL Lymph # (Auto) (1.2-3.4) K/uL [place] # (Auto) (0.11-0.59) K/uL Eos # (Auto) (0-0.5) K/uL Baso # (Auto) (0-0.2) K/uL Platelet Estimate (Normal) Giant Platelets Sodium (136-145) mmol/L Potassium (3.5-5.1) mmol/L Chloride (98-107) mmol/L Carbon Dioxide (21-32) mmol/L Anion Gap (3-11) BUN (7-18) mg/dl Creatinine (0.6-1.4) mg/dl Est Cr Clr Drug Dosing ml/min Est GFR ( Amer) Est GFR (Non-Af Amer) BUN/Creatinine Ratio (10-20) Glucose (70-99) mg/dl POC Glucose 123 H 123 H (70-99) Estimat Average Glucose mg/dl Hemoglobin A1c (4.5-5.6) % Calcium (8.5-10.1) mg/dl Magnesium (1.8-2.4) mg/dl Total Bilirubin (0.2-1) mg/dl AST (15-37) U/L ALT (12-78) U/L Alkaline Phosphatase (45-117) U/L Total Protein (6.4-8.2) gm/dl Albumin (3.4-5.0) gm/dl Globulin (2.5-4.0) gm/dl Albumin/Globulin Ratio (0.9-2) Lipase (73-393) U/L Urine Color Urine Appearance (Clear) Urine pH (4.5-7.5) Ur Specific [place] (1.000-1.030) Urine Protein (Negative) Urine Glucose (UA) (Negative) Urine Ketones (Negative) Urine Blood (Negative) Urine Nitrite (Negative) Urine Bilirubin (Negative) Urine Urobilinogen (Negative) Ur Leukocyte Esterase (Negative) Urine WBC (Auto) (0-5) /hpf Urine RBC (Auto) (0-4) /hpf U Hyaline Cast (Auto) (0-5) /lpf U Epithel Cells (Auto) (0-5) /lpf Urine Bacteria (Auto) (Negative) Urine Crystals Calcium Oxalate Crystal (None Prsent) Blood Type Antibody Screen 06/04/19 06/04/19 06/04/19 Range/Units 05:24 05:24 05:24 WBC 2.59 L (4.8-10.8) K/uL RBC 3.42 L (4.7-6.1) M/uL Hgb 10.5 L (14.0-18.0) g/dL Hct 32.5 L (42-52) % MCV 95.0 (80-100) fL MCH 30.7 (25-34) pg MCHC 32.3 (32-36) g/dL RDW Std Deviation 50.8 H (36.4-46.3) fL RDW Coeff of Ivette 14.8 H (11.5-14.5) % Plt Count 66 L (130-400) K/uL MPV 9.4 (7.4-10.4) fL Immature Gran % (Auto) 0.4 % Neut % (Auto) 41.3 % Lymph % (Auto) 45.9 % Newberry % (Auto) 9.7 % Eos % (Auto) 2.7 % Baso % (Auto) 0.0 % Immature Gran # (Auto) 0.01 (0.00-0.02) K/uL Neut # (Auto) 1.07 L (1.4-6.5) K/uL Lymph # (Auto) 1.19 L (1.2-3.4) K/uL [place]berry # (Auto) 0.25 (0.11-0.59) K/uL Eos # (Auto) 0.07 (0-0.5) K/uL Baso # (Auto) 0.00 (0-0.2) K/uL Platelet Estimate (Normal) Giant Platelets 2+ Sodium 139 (136-145) mmol/L Potassium 3.8 (3.5-5.1) mmol/L Chloride 107 (98-107) mmol/L Carbon Dioxide 25 (21-32) mmol/L Anion Gap 7.0 (3-11) BUN 10 (7-18) mg/dl Creatinine 0.68 (0.6-1.4) mg/dl Est Cr Clr Drug Dosing 133.5 ml/min Est GFR ( Amer) 120.3 Est GFR (Non-Af Amer) 103.8 BUN/Creatinine Ratio 14.8 (10-20) Glucose 116 H (70-99) mg/dl POC Glucose (70-99) Estimat Average Glucose mg/dl Hemoglobin A1c (4.5-5.6) % Calcium 8.8 (8.5-10.1) mg/dl Magnesium 1.8 (1.8-2.4) mg/dl Total Bilirubin (0.2-1) mg/dl AST (15-37) U/L ALT (12-78) U/L Alkaline Phosphatase (45-117) U/L Total Protein (6.4-8.2) gm/dl Albumin (3.4-5.0) gm/dl Globulin (2.5-4.0) gm/dl Albumin/Globulin Ratio (0.9-2) Lipase (73-393) U/L Urine Color Urine Appearance (Clear) Urine pH (4.5-7.5) Ur Specific [place] (1.000-1.030) Urine Protein (Negative) Urine Glucose (UA) (Negative) Urine Ketones (Negative) Urine Blood (Negative) Urine Nitrite (Negative) Urine Bilirubin (Negative) Urine Urobilinogen (Negative) Ur Leukocyte Esterase (Negative) Urine WBC (Auto) (0-5) /hpf Urine RBC (Auto) (0-4) /hpf U Hyaline Cast (Auto) (0-5) /lpf U Epithel Cells (Auto) (0-5) /lpf Urine Bacteria (Auto) (Negative) Urine Crystals Calcium Oxalate Crystal (None Prsent) Blood Type A Positive Antibody Screen NEGATIVE 06/04/19 06/04/19 06/03/19 Range/Units 05:24 02:08 21:20 WBC (4.8-10.8) K/uL RBC (4.7-6.1) M/uL Hgb (14.0-18.0) g/dL Hct (42-52) % MCV (80-100) fL MCH (25-34) pg MCHC (32-36) g/dL RDW Std Deviation (36.4-46.3) fL RDW Coeff of Ivette (11.5-14.5) % Plt Count (130-400) K/uL MPV (7.4-10.4) fL Immature Gran % (Auto) % Neut % (Auto) % Lymph % (Auto) % [place] % (Auto) % Eos % (Auto) % Baso % (Auto) % Immature Gran # (Auto) (0.00-0.02) K/uL Neut # (Auto) (1.4-6.5) K/uL Lymph # (Auto) (1.2-3.4) K/uL [place] # (Auto) (0.11-0.59) K/uL Eos # (Auto) (0-0.5) K/uL Baso # (Auto) (0-0.2) K/uL Platelet Estimate (Normal) Giant Platelets Sodium (136-145) mmol/L Potassium (3.5-5.1) mmol/L Chloride (98-107) mmol/L Carbon Dioxide (21-32) mmol/L Anion Gap (3-11) BUN (7-18) mg/dl Creatinine (0.6-1.4) mg/dl Est Cr Clr Drug Dosing ml/min Est GFR ( Amer) Est GFR (Non-Af Amer) BUN/Creatinine Ratio (10-20) Glucose (70-99) mg/dl POC Glucose 146 H (70-99) Estimat Average Glucose 171 mg/dl Hemoglobin A1c 7.6 H (4.5-5.6) % Calcium (8.5-10.1) mg/dl Magnesium (1.8-2.4) mg/dl Total Bilirubin (0.2-1) mg/dl AST (15-37) U/L ALT (12-78) U/L Alkaline Phosphatase (45-117) U/L Total Protein (6.4-8.2) gm/dl Albumin (3.4-5.0) gm/dl Globulin (2.5-4.0) gm/dl Albumin/Globulin Ratio (0.9-2) Lipase (73-393) U/L Urine Color Dark Yellow Urine Appearance Clear (Clear) Urine pH 5.0 (4.5-7.5) Ur Specific [place] 1.033 H (1.000-1.030) Urine Protein Trace H (Negative) Urine Glucose (UA) 3+ H (Negative) Urine Ketones Trace H (Negative) Urine Blood Negative (Negative) Urine Nitrite Negative (Negative) Urine Bilirubin Negative (Negative) Urine Urobilinogen Negative (Negative) Ur Leukocyte Esterase Negative (Negative) Urine WBC (Auto) 1-5 (0-5) /hpf Urine RBC (Auto) 5-10 H (0-4) /hpf U Hyaline Cast (Auto) 1-5 (0-5) /lpf U Epithel Cells (Auto) 10-20 H (0-5) /lpf Urine Bacteria (Auto) Negative (Negative) Urine Crystals Not Reportable Calcium Oxalate Crystal Present A (None Prsent) Blood Type Antibody Screen 06/03/19 06/03/19 Range/Units 21:20 21:20 WBC 3.04 L (4.8-10.8) K/uL RBC 3.66 L (4.7-6.1) M/uL Hgb 11.3 L (14.0-18.0) g/dL Hct 35.1 L (42-52) % MCV 95.9 (80-100) fL MCH 30.9 (25-34) pg MCHC 32.2 (32-36) g/dL RDW Std Deviation 50.0 H (36.4-46.3) fL RDW Coeff of Ivette 14.6 H (11.5-14.5) % Plt Count 68 L (130-400) K/uL MPV 10.2 (7.4-10.4) fL Immature Gran % (Auto) 0.3 % Neut % (Auto) 48.4 % Lymph % (Auto) 41.1 % [place] % (Auto) 8.6 % Eos % (Auto) 1.6 % Baso % (Auto) 0.0 % Immature Gran # (Auto) 0.01 (0.00-0.02) K/uL Neut # (Auto) 1.47 (1.4-6.5) K/uL Lymph # (Auto) 1.25 (1.2-3.4) K/uL [place] # (Auto) 0.26 (0.11-0.59) K/uL Eos # (Auto) 0.05 (0-0.5) K/uL Baso # (Auto) 0.00 (0-0.2) K/uL Platelet Estimate Decreased L (Normal) Giant Platelets Sodium 138 (136-145) mmol/L Potassium 3.4 L (3.5-5.1) mmol/L Chloride 106 (98-107) mmol/L Carbon Dioxide 26 (21-32) mmol/L Anion Gap 7.0 (3-11) BUN 14 (7-18) mg/dl Creatinine 0.95 (0.6-1.4) mg/dl Est Cr Clr Drug Dosing 95.2 ml/min Est GFR ( Amer) 100.4 Est GFR (Non-Af Amer) 86.7 BUN/Creatinine Ratio 14.5 (10-20) Glucose 184 H (70-99) mg/dl POC Glucose (70-99) Estimat Average Glucose mg/dl Hemoglobin A1c (4.5-5.6) % Calcium 9.2 (8.5-10.1) mg/dl Magnesium 1.6 L (1.8-2.4) mg/dl Total Bilirubin 0.5 (0.2-1) mg/dl AST 20 (15-37) U/L ALT 20 (12-78) U/L Alkaline Phosphatase 127 H (45-117) U/L Total Protein 7.3 (6.4-8.2) gm/dl Albumin 3.1 L (3.4-5.0) gm/dl Globulin 4.2 H (2.5-4.0) gm/dl Albumin/Globulin Ratio 0.7 L (0.9-2) Lipase 83 (73-393) U/L Urine Color Urine Appearance (Clear) Urine pH (4.5-7.5) Ur Specific [place] (1.000-1.030) Urine Protein (Negative) Urine Glucose (UA) (Negative) Urine Ketones (Negative) Urine Blood (Negative) Urine Nitrite (Negative) Urine Bilirubin (Negative) Urine Urobilinogen (Negative) Ur Leukocyte Esterase (Negative) Urine WBC (Auto) (0-5) /hpf Urine RBC (Auto) (0-4) /hpf U Hyaline Cast (Auto) (0-5) /lpf U Epithel Cells (Auto) (0-5) /lpf Urine Bacteria (Auto) (Negative) Urine Crystals Calcium Oxalate Crystal (None Prsent) Blood Type Antibody Screen
--- NOTE | 2019-06-04 17:42 | Communication Note ---
Date of Service: June 04, 2019 Patient seen and evaluated this morning Only complaint at the time was left sided abdominal discomfort. Has not had any bowel movement since admission. Reported BM at home was bloody and watery Denied fevers, chills Nausea improved. No chest pain, shortness of breath No fatigue, dizziness, syncope On physical exam General: No acute distress Eyes: PERRL, conjunctivae normal, not pale, anicteric sclerae, EOM intact bilaterally ENMT: External ear and nose normal, oropharynx normal Neck: Normal visual inspection, no tracheal deviation, no swelling noted Respiratory: Normal respiratory effort, no respiratory distress, lungs clear to auscultation, no crackles and no wheezes Cardiovascular: Pulse is RRR. S1 S2. No edema Gastrointestinal (Abdomen): Abdomen is not distended, soft, mild tenderness on LLQ, no guarding, no palpable hepatosplenomegaly, normal bowel sounds Musculoskeletal: No cyanosis or clubbing, all extremities motor strength 5/5 Skin: No rash noted on gross inspection, No ulcers noted Neurologic: Alert and oriented x 3, No focal weakness, sensation grossly intact Psychiatric: Alert and oriented x 3, euthymic affect, no depressed affect Lymphatic: No cervical and axillary lymphadenopathy Assessment Reviewed CT abd/pelvis. Suggestive of colitis Bloody diarrhea likely due to colitis likely secondary to chemo vs infectious Last chemo was a week ago Has h/o salmonella infection and c.diff Will get c.diff and stool cultures Will continue ceft and flagyl for now Monitor H/H Gi consult Refer to H/P for more details
[2019-06-04] MEDS: HEPARIN 100 UNIT/ML 5ML FLUSH IV PRN ×2 (18:51→23:12)
[2019-06-04] MEDS: ATORVASTATIN 40 MG TAB PO SCH (20:20)
[2019-06-04] MEDS: cefTRIAXone SODIUM 2,000 MG in DEXTROSE 5% 50 ML IV SCH (22:27)
[2019-06-04 22:51] LABS: Cdiff Antigen Positive; Cdiff Toxin A+B Negative Cdiff Toxin (Negative)
[2019-06-04] MEDS ORDERED: cefTRIAXone SODIUM 1,000 MG/50 ML BAG IV SCH (23:00)
[2019-06-05] MEDS: metroNIDAZOLE 500 MG/100 ML BAG IV SCH ×3 (01:27→17:56)
[2019-06-05 06:05] LABS: Hematocrit (blood only) 34.4 % (42-52); Mean Corpuscular Hemoglobin 30.9 pg (25-34); Mean Corpuscular Volume 96.6 fL (80-100); RDW Coefficient of Variation 14.6 % (11.5-14.5); RDW Standard Deviation 50.9 fL (36.4-46.3); Red Blood Count 3.56 M/uL (4.7-6.1); White Blood Count 2.31 K/uL (4.8-10.8)
[2019-06-05 06:38] LABS: Mean Platelet Volume 9.6 fL (7.4-10.4); Platelet Count 66 K/uL (130-400)
[2019-06-05 06:53] LABS: BUN Creatinine Ratio 7.1 (10-20); Calcium 9.1 mg/dl (8.5-10.1); Creatinine Clr Calc Pharmacy 117.9 ml/min; Est GFR (African American) 114.3; Est GFR (Non-African American) 98.6; Magnesium 1.7 mg/dl (1.8-2.4); Potassium 3.7 mmol/L (3.5-5.1)
[2019-06-05] MEDS: INSULIN GLARGINE SOLOSTAR 100 UNITS/ML 3 ML PEN SQ SCH (08:48)
[2019-06-05] MEDS: INSULIN ASPART 100 UNITS/ML 3 ML PEN SC SCH ×4 (08:49→20:29)
[2019-06-05] MEDS ORDERED: MAGNESIUM SULFATE / D5W 1 GM/100 ML BAG IV ONE (10:00)
[2019-06-05] MEDS: HEPARIN 100 UNIT/ML 5ML FLUSH IV PRN ×2 (11:22→23:00)
--- NOTE | 2019-06-05 15:42 | Hospitalist Progress Note ---
Date of Service June 05, 2019 Assessment & Plan (1) Colitis: Immunocompromised patient hx colon cancer status stage IV status post surgery ongoing chemotherapy C.diff gene positive. C diff toxin negative Bloody bowel movement resolved Will advance diet and monitor tolerance Follow up results of stool culture. If negative will discontinue antibiotics Hb stable at 11 Hypomagnesemia 1.7 today. Replete (2) DM type 2 (diabetes mellitus, type 2): Continue iss and lantus Holding po meds while in hospital (3) Dyslipidemia: Continue statin (4) Anemia: Chronic normocytic At baseline (5) Thrombocytopenia: Chronic At 66 today Stable Subjective Patient reports he still has diarrhea. Reported 4 episodes since yesterday Stated stools are still loose but no longer watery\ Reports they are no longer bloody Reports abdominal pain and discomfort has resolved Denied any nausea, vomiting, fevers, chills Denied fatigue, dizziness Review of Systems Review of Systems: All systems reviewed and unremarkable except for mentioned above. Physical Exam Physical Exam: General: No acute distress Eyes: PERRL, conjunctivae normal, not pale, anicteric sclerae, EOM intact bilaterally ENMT: External ear and nose normal, oropharynx normal Neck: Normal visual inspection, no tracheal deviation, no swelling noted Respiratory: Normal respiratory effort, no respiratory distress, lungs clear to auscultation, no crackles and no wheezes Cardiovascular: Pulse is RRR. S1 S2. No edema Gastrointestinal (Abdomen): Abdomen is not distended, soft, no tenderness, no guarding, no palpable hepatosplenomegaly, normal bowel sounds Musculoskeletal: No cyanosis or clubbing, all extremities motor strength 5/5 Skin: No rash noted on gross inspection, No ulcers noted Neurologic: Alert and oriented x 3, No focal weakness, sensation grossly intact Results & Data Vital Signs (Past 12 Hours) Vital Signs Temp Pulse Resp BP Pulse Ox 06/05/19 15:18 36.9 C 69 16 132/80 92 06/05/19 07:37 36.8 C 66 18 125/77 97 Laboratory Results Laboratory Results - last 24 hr 06/04/19 06/04/19 06/04/19 16:28 19:29 19:30 WBC RBC Hgb Hct MCV MCH MCHC RDW Std Deviation RDW Coeff of Ivette Plt Count MPV Sodium Potassium Chloride Carbon Dioxide Anion Gap BUN Creatinine Est Cr Clr Drug Dosing Est GFR ( Amer) Est GFR (Non-Af Amer) BUN/Creatinine Ratio Glucose POC Glucose 115 H 183 H Calcium Magnesium Stl C. diff Tox B Gene Positive Cdiff Gene H Stl C.difficile Tox A&B Negative Cdiff Toxin 06/05/19 06/05/19 06/05/19 05:48 05:48 08:15 WBC 2.31 L RBC 3.56 L Hgb 11.0 L Hct 34.4 L MCV 96.6 MCH 30.9 MCHC 32.0 RDW Std Deviation 50.9 H RDW Coeff of Ivette 14.6 H Plt Count 66 L MPV 9.6 Sodium 139 Potassium 3.7 Chloride 108 H Carbon Dioxide 25 Anion Gap 6.0 BUN 6 L Creatinine 0.77 Est Cr Clr Drug Dosing 117.9 Est GFR ( Amer) 114.3 Est GFR (Non-Af Amer) 98.6 BUN/Creatinine Ratio 7.1 L Glucose 120 H POC Glucose 118 H Calcium 9.1 Magnesium 1.7 L Stl C. diff Tox B Gene Stl C.difficile Tox A&B
[2019-06-05] MEDS: ATORVASTATIN 40 MG TAB PO SCH (20:28)
[2019-06-05] MEDS: cefTRIAXone SODIUM 2,000 MG in DEXTROSE 5% 50 ML IV SCH (22:08)
[2019-06-06] MEDS: metroNIDAZOLE 500 MG/100 ML BAG IV SCH (02:04)
[2019-06-06] MEDS: HEPARIN 100 UNIT/ML 5ML FLUSH IV PRN ×3 (03:09→10:38)
[2019-06-06 06:27] LABS: Hematocrit (blood only) 32.8 % (42-52); Hemoglobin 10.3 g/dL (14.0-18.0); Mean Corpuscular Hemoglobin 30.7 pg (25-34); Mean Corpuscular Hgb Conc 31.4 g/dL (32-36); Mean Corpuscular Volume 97.6 fL (80-100); Mean Platelet Volume 9.1 fL (7.4-10.4); Platelet Count 56 K/uL (130-400); RDW Coefficient of Variation 14.9 % (11.5-14.5); RDW Standard Deviation 52.1 fL (36.4-46.3); Red Blood Count 3.36 M/uL (4.7-6.1); White Blood Count 2.22 K/uL (4.8-10.8)
[2019-06-06 07:03] LABS: BUN Creatinine Ratio 7.4 (10-20); Calcium 8.7 mg/dl (8.5-10.1); Est GFR (African American) 113.1; Est GFR (Non-African American) 97.6; Potassium 3.6 mmol/L (3.5-5.1)
[2019-06-06] MEDS: FERROUS SULFATE 325 MG TAB PO SCH (08:22)
[2019-06-06] MEDS: INSULIN ASPART 100 UNITS/ML 3 ML PEN SC SCH (08:26)
[2019-06-06] MEDS: INSULIN GLARGINE SOLOSTAR 100 UNITS/ML 3 ML PEN SQ SCH (08:41)
--- NOTE | 2019-06-06 14:07 | Discharge Summary ---
Date of Service June 06, 2019 Admission HPI Per Admitting Provider History obtained from patient and records. Medical history significant for colon cancer status stage IV status post surgery ongoing chemotherapy, DM 2 on oral meds, hyperlipidemia, urolithiasis, chronic anemia (baseline hemoglobin 10-11), history C. difficile/Salmonella infection status post treatment as per records, past tobacco abuse. Recent confinement May 2018 for C. difficile colitis status post oral v ancomycin course. Stool cultures also showed Salmonella infection status post Cipro Flagyl Rx. 1 day history of achy lower abdominal cramping followed by bloody diarrhea. Some nausea, no emesis, no fever, no chills. No recent antibiotic Rx. Recent chemotherapy session last week. No recent travel, no known sick contacts. 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 Admission Exam Per Admitting Provider GENERAL: Obese, pleasant, no respiratory distress SKIN: Pallor, warm HEENT: Bespectacled, pale palpebral conjunctivae, no ptosis, dry buccal mucosa NECK : Supple, short, no tenderness CHEST : Decreased breath sounds, no tenderness HEART : RRR, no obvious murmurs ABDOMEN: distention, left-sided abdominal tenderness EXTREMITIES : no LE swelling, no LE tenderness, no other conspicuous deformities noted NEUROLOGIC : Coherent, no facial asymmetry, no other gross focality Principal Diagnosis Bloody diarrhea Colitis Discharge Exam General: No acute distress Eyes: PERRL, conjunctivae normal, not pale, anicteric sclerae, EOM intact bilaterally ENMT: External ear and nose normal, oropharynx normal Neck: Normal visual inspection, no tracheal deviation, no swelling noted Respiratory: Normal respiratory effort, no respiratory distress, lungs clear to auscultation, no crackles and no wheezes Cardiovascular: Pulse is RRR. S1 S2. No edema Gastrointestinal (Abdomen): Abdomen is not distended, soft, no tenderness, no guarding, no palpable hepatosplenomegaly, normal bowel sounds Musculoskeletal: No cyanosis or clubbing, all extremities motor strength 5/5 Skin: No rash noted on gross inspection, No ulcers noted Neurologic: Alert and oriented x 3, No focal weakness, sensation grossly intact Discharge Data Allergies Allergy/AdvReac Type Severity Reaction Status Date / Time No Known Allergies Allergy Verified 11/23/18 05:34 Consultations 06/03/19 22:53 ED Decision to Admit Stat 06/04/19 14:17 Consult Gastroenterology Routine Ordered Studies 06/03/19 21:04 CT abd pelvis IV con only Stat 1. Interval development of diffuse colonic wall thickening. This suggests the presence of a colitis, possibly inflammatory in response to chemotherapy or potentially infectious. 2. Significant retroperitoneal predominant edema most severely affecting the presacral/perirectal region and lower quadrants. Presumably this is a response to chemotherapy and is nonspecific edema or inflammation. 3. No bowel obstruction. 4. Significant interval decrease in size of multifocal lymphadenopathy seen on prior exams. 5. No evidence of a new site of metastatic disease. 6. Portal hypertension suggested by splenomegaly and varices. There is no morphologic evidence of cirrhosis. If there is no underlying hepatocellular risk factors for fibrosis (hepatitis B, hepatitis C, EtOH, etc.), consider sinusoidal obstruction syndrome as a possibility for this finding. Presumably splenomegaly is not related to metastatic involvement except in the case of a separate known underlying lymphoproliferative disease. Hospital Course (1) Colitis: Immunocompromised patient hx colon cancer status stage IV status post surgery ongoing chemotherapy C.diff gene positive. C diff toxin negative Stool culture negative Bloody diarrhea resolved Nausea and abdominal pain resolved Discharge off antibiotics Hb stable at 11 Hypomagnesemia 1.7 today. Replete (2) DM type 2 (diabetes mellitus, type 2): Continue home meds (3) Dyslipidemia: Continue statin (4) Anemia: Chronic normocytic At baseline (5) Thrombocytopenia: Chronic Follow up with PCP and heme/oncologist for management Total Time Total Time Spent Total Time Spent (In Minutes): 25 Total Time Includes: Examination of the Patient, Discharge Planning and Medication Reconciliation Discharge Plan Discharge Items Patient Disposition: Home - Self-Care Reason For Visit: Bloody diarrhea Discharge Diagnosis: Bloody diarrhea Condition on Discharge: Good Activity: Resume your previous activity Non-emergency contact: Primary Care Provider and Cell Technician Call non-emergency contact if: you have any medication questions and your symptoms worsen Follow-up/Referrals: Duong Matt MD [Primary Care Provider] - Diet: Carb Consistent or DM2 Addtl Attending Provider Instructions: Mr Acosta. You came to the hospital complaining of bloody diarrhea and lower abdominal cramp. You were evaluated and CT scan showed inflammation of your bowel. You were initially treated with antibiotics. Your symptoms resolved and tests showed positive C. diff gene but negative tox in. Stool culture has not identified any other bacteria to date. Please follow up with your Primary Doctor and Cell Technician. It was a pleasure taking care of you. Pending Studies at Discharge: No Stand-Alone Forms: My [facility] Doctor[facility], Smoking Cessation Medications and DC Order Prescriptions: Continued metformin 1,000 mg Tablet 1,000 mg PO BIDM RF: 0 pioglitazone 30 mg Tablet 30 mg PO QAM RF: 0 acetaminophen [Tylenol] 325 mg Tablet 325 mg PO Q6H PRN (Reason: Pain) RF: 0 ondansetron HCl 8 mg tablet 8 mg PO Q8H RF: 0 prochlorperazine maleate 10 mg tablet 10 mg PO Q6H PRN (Reason: Nausea) RF: 0 atorvastatin 40 mg Tablet 40 mg PO HS RF: 0 Probiotic 10 billion cell Capsule 1 cap PO QAM RF: 0 ferrous sulfate 325 mg (65 mg iron) Tablet 325 mg PO Q2D RF: 0 cyanocobalamin (vitamin B-12) [Vitamin B-12] 5,000 mcg Tablet, Sublingual 5,000 mcg PO QAM RF: 0 Discharge Orders: Discharge Order (Routine); Ordered 06/06/19 Ordered By: Divya Ahmadi/Other Patient Handouts: Diabetes Mcfp Complications, Diabetes Healthy Meals, Diabetes Carbs, Diabetes Exercise Benefits, Diabetes Activity Tips, Diabetes Living Life, A1C Admission Data Admit Date/Time: 06/04/19 00:52 Attending Provider: Divya Cabrera I. Admit Provider: Manjinder Oh Primary Care Provider: Duong Matt Other Providers: Manjinder Oh ; Dillon Wong Other Interventions: Discharge Summary Assessment (RN) Last Done: 06/06/19 10:37 DC Date/Time DO NOT enter until pt leaves facility: 06/06/19 11:15
== END 2019-06-06 11:15 | disposition home health service (06) | DRG 394 ==
LOC: ED 20:51 → 4W 06-04 00:52

== ENCOUNTER 2019-08-13 12:53 | Inpatient (IN) ==
[2019-08-13] MEDS ORDERED: SODIUM CHLORIDE 0.9% 1000ML 1,000 ML IV ONE (13:13)
[2019-08-13] MEDS ORDERED: ONDANSETRON INJ 2 MG/ML 2 ML VIAL IV STA (13:13)
[2019-08-13] MEDS ORDERED: ACETAMINOPHEN 1,000 MG/100 ML VIAL IV STA (13:13)
--- NOTE | 2019-08-13 13:36 | Emergency Department Note ---
Entered by Jose Salazar acting as a scribe for Alton Landaverde MD History of Present Illness General Chief complaint: Abdominal Pain Stated complaint: ABD PAIN,CANCER PT Time Seen by Provider: 08/13/19 13:04 Source: patient History of Present Illness Onset (ago): week(s) 1 Location: abdomen Pain Consistency: + constant Maximum Pain Intensity: 5 Relieved By: + medication (mild with Tylenol) Associated symptoms: + denies other symptoms (blood in his stool, blood in vomit, and feeling thirsty) and + other (vomiting) The patient is a 58 y/o male who presents to the ED w/ CC of constant abdominal pain beginning a week ago. The patient states he was evaluated in the ED two days for similar symptoms and was diagnosed with colitis. He reports he was given the option to be discharged or stay in the hospital, and he chose to be discharged home. The patient notes since then his symptoms have not worsened but also have only mildly alleviated with Tylenol. He reports after being discharged home two days ago, he vomited and then vomited again yesterday morning. The patient notes he has been able to eat since then, and eating causes him to have a BM. He states his symptoms have been present for a week now and believes they have been caused by his chemotherapy that he received 9 days ago. The patient reports he has a history of this in May secondary to his chemotherapy. He notes he contacted Dr. Meraz about getting chemotherapy this coming Friday and after reviewing the notes and past visit, Dr. Meraz wanted him to be admitted to the hospital and evaluated by GI. He notes he receives chemotherapy every two weeks. The patient denies blood in his stool, blood in vomit, and feeling thirsty. Review of EMR shows the patient was diagnosed with proctocolitis via CT on 08/11. The patient was evaluated by the hospitalist and was given the option of hospitalization or discharge, and he chose to be discharged. Home Medications Home Medications Medication Instructions Recorded Confirmed Type metformin 1,000 mg PO BIDM 04/18/18 08/13/19 History pioglitazone 30 mg PO QAM 04/18/18 08/13/19 History Probiotic 1 cap PO QAM 08/31/18 08/13/19 History atorvastatin 40 mg PO HS 08/31/18 08/13/19 History ferrous sulfate 325 mg PO Q2D 10/02/18 08/13/19 History cyanocobalamin (vitamin B-12) 5,000 mcg PO QAM 10/13/18 08/13/19 History [Vitamin B-12] ondansetron HCl 8 mg PO Q8H PRN 06/03/19 08/13/19 History prochlorperazine maleate 10 mg PO Q6H PRN 06/03/19 08/13/19 History Magic Swizzle 5 ml PO UD PRN 08/13/19 08/13/19 History acetaminophen [Tylenol Extra 500 mg PO Q6H PRN 08/13/19 08/13/19 History Strength] bevacizumab [Avastin] 0 mg IV UD 08/13/19 08/13/19 History fluorouracil 0 mg IV UD 08/13/19 08/13/19 History leucovorin calcium 0 mg IV UD 08/13/19 08/13/19 History Allergies Allergy/AdvReac Type Severity Reaction Status Date / Time No Known Allergies Allergy Verified 08/13/19 13:24 Past Med/Surg History Medical History Anxiety C. 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 Diverticulitis (Acute) Diverticulitis of colon with perforation (Resolved) NO SURGERY DM type 2 (diabetes mellitus, type 2) (Chronic) Dyslipidemia (Chronic) Immunocompromised (Acute) Kidney stones Obesity (Chronic) Osteoarthritis Thrombocytopenia (Acute) Surgical History History of colonoscopy History of cystoscopy STONE REMOVAL WITH STENT PLACED History of esophagogastroduodenoscopy (EGD) History of tooth extraction History of vascular access device RIGHT UPPER CHEST PLACED 09/2018 Hx of hernia repair (Chronic) Hx of tonsillectomy (Chronic) Family History Mother , Age 62 Breast cancer Father , Age 62 Stroke Sister Family history of diabetes mellitus Brother Family history of diabetes mellitus Brother Family history of diabetes mellitus Social History Preferred Language: Burmese Communication Ability: Effective Visual Impairment: No Limitations Internal Grinder Tender Required: No Beliefs That Will Affect Care: None Current Living Situation: Spouse and Family Other Information That Helps Us Care for You: No Feels Safe at Home: Yes Safety Concerns: Feels Safe At This Time Smoking Status: Former smoker Tobacco Type: cigarettes and smokeless tobacco ; Second Hand Exposure: Yes (daughter smokes) ; Hx Alcohol Use: No Hx Substance Use: No Review of Systems See HPI for pertinent positives & negatives. and A total of 10 systems reviewed and were otherwise negative Physical Exam Vital Signs Vital Signs - 24 hr 08/13/19 12:54 Temperature 36.8 C Temperature Source Oral Pulse Rate 86 Respiratory Rate 18 Respiratory Effort / Characteristics Non-Labored Spontaneous Respiratory Depth Normal Blood Pressure 144/88 H Blood Pressure Mean 106 Blood Pressure Position Sitting Pulse Oximetry 100 Oxygen Delivery Method Room Air Sepsis Recent Fever Within 48 Hours No Sepsis Action Taken by Nursing No Action Required GENERAL: Patient is in no acute distress. HEENT: No acute trauma, normocephalic atraumatic, mucous membranes moist, no nasal congestion, no scleral icterus. NECK: No stridor, no adenopathy, no meningismus, trachea is midline. LUNGS: Clear to auscultation bilaterally, no wheeze, no rhonchi, breath sounds equal. HEART: Without murmurs gallops or rubs, regular rate and rhythm. ABDOMEN: Soft, moderate tenderness along the left side and mildly tender on the right side of the abdomen, bowel sounds positive, no hernias, no peritonitis. EXTREMITIES: No cyanosis or edema, full range of motion of all the joints without pain or difficulty, no signs for acute trauma. NEUROLOGIC: Oriented x 3, no acute motor or sensory deficits, no focal weakness. SKIN: No rash, no jaundice, no diaphoresis. Course Course 1307: Past medical records reviewed. The patient was evaluated in room A11B. A complete history and physical examination was performed. I discussed results with the patient. He verbalized agreement of the treatment plan. The patient will be evaluated for further management and care. 1318: I reviewed the patient's case with TALIA Joyce, [facility] Hospitalist, attending Dr. Presley. She will evaluate the patient for further management. Administered Medications Sodium Chloride (Nss 1000ml) 1,000 mls @ 125 mls/hr IV .Q8H LUIS Stop: 09/12/19 15:10 Last Admin: 08/13/19 15:24 Dose: 125 mls/hr Documented by: [id number] Discontinued Medications Sodium Chloride (Nss 1000ml) 1,000 mls @ 999 mls/hr IV .Q1H1M ONE Stop: 08/13/19 14:13 Last Infusion: 08/13/19 14:44 Dose: 0 mls/hr Documented by: [id number] Admin: 08/13/19 13:40 Dose: 999 mls/hr Documented by: [id number] Acetaminophen (Ofirmev) 1,000 mg in 100 mls @ 400 mls/hr IV NOW STA Stop: 08/13/19 13:27 Last Infusion: 08/13/19 14:28 Dose: 0 mls/hr Documented by: [id number] Admin: 08/13/19 13:40 Dose: 400 mls/hr Documented by: [id number] Ondansetron HCl (Zofran) 4 mg IV NOW STA Stop: 08/13/19 13:14 Last Admin: 08/13/19 13:41 Dose: 4 mg Documented by: [id number] Medical Decision Making Differential Diagnosis Differential diagnosis includes: colitis, diverticulitis, medication reaction, bacterial intestinal illness, dehydration, electrolyte imbalance, anemia. Medical Records Attestation: I reviewed the patient's medical records. Home Medications Current Medication List: was personally reviewed by me Laboratory Data Attestation: I reviewed the patient's lab results. Result diagrams: 08/13/19 13:30 08/13/19 13:30 Lab Results 08/13/19 08/13/19 Range/Units 13:30 13:30 WBC 2.31 L (4.8-10.8) K/uL RBC 3.53 L (4.7-6.1) M/uL Hgb 10.9 L (14.0-18.0) g/dL Hct 33.3 L (42-52) % MCV 94.3 (80-100) fL MCH 30.9 (25-34) pg MCHC 32.7 (32-36) g/dL RDW Std Deviation 48.5 H (36.4-46.3) fL RDW Coeff of Ivette 14.4 (11.5-14.5) % Plt Count 50 L (130-400) K/uL MPV 8.9 (7.4-10.4) fL Immature Gran % (Auto) 0.0 % Neut % (Auto) 49.3 % Lymph % (Auto) 36.4 % [place] % (Auto) 12.1 % Eos % (Auto) 2.2 % Baso % (Auto) 0.0 % Immature Gran # (Auto) 0.00 (0.00-0.02) K/uL Neut # (Auto) 1.14 L (1.4-6.5) K/uL Lymph # (Auto) 0.84 L (1.2-3.4) K/uL [place] # (Auto) 0.28 (0.11-0.59) K/uL Eos # (Auto) 0.05 (0-0.5) K/uL Baso # (Auto) 0.00 (0-0.2) K/uL Sodium 140 (136-145) mmol/L Potassium 3.7 (3.5-5.1) mmol/L Chloride 110 H (98-107) mmol/L Carbon Dioxide 26 (21-32) mmol/L Anion Gap 4.0 (3-11) BUN 11 (7-18) mg/dl Creatinine 0.65 (0.6-1.4) mg/dl Est Cr Clr Drug Dosing 137.6 ml/min Est GFR ( Amer) 122.6 Est GFR (Non-Af Amer) 105.7 BUN/Creatinine Ratio 17.4 (10-20) Glucose 118 H (70-99) mg/dl Calcium 9.1 (8.5-10.1) mg/dl Magnesium 2.0 (1.8-2.4) mg/dl Total Bilirubin 0.5 (0.2-1) mg/dl AST 23 (15-37) U/L ALT 27 (12-78) U/L Alkaline Phosphatase 128 H (45-117) U/L Total Protein 6.8 (6.4-8.2) gm/dl Albumin 3.2 L (3.4-5.0) gm/dl Globulin 3.6 (2.5-4.0) gm/dl Albumin/Globulin Ratio 0.9 (0.9-2) Blood Pressure Blood Pressure Findings: Elevated blood pressure Blood Pressure Disposition: Referred to patients primary care provider LORETTA Abdi There is a lower white blood cell count, hemoglobin and platelet count-all consistent with his chemotherapy use. No concerning electrolyte abnormality or kidney failure. No worrisome liver enzyme elevation. On exam, the patient was tender primarily to the left side of the abdomen, there was no peritonitis. The patient was not febrile or toxic. CT imaging from 2 days ago does show evidence for a diffuse proctocolitis. The patient received IV Zofran, IV Tylenol, IV saline, he seems to be more comfortable. The patient was sent to the hospital because he is not improving. Hospitalization for this colitis was felt warranted by his cash register mechanic/oncol ogist. I did speak to the patient and manager case management, the on-call hospitalist was consulted. The patient does have a colitis by his recent work-up, the colitis is likely from his chemotherapy although certainly, a bacterial or viral etiology must be considered. Impression & Plan Colitis, Thrombocytopenia, Immunocompromised, Failure of outpatient treatment Discharge Plan Visit Data *Final* Discharge Date/Time: 08/13/19 14:34 Chief Complaint: Abdominal Pain Stated Complaint: ABD PAIN,CANCER PT ED Provider: Alton Landaverde Discharge Problem: Colitis, Thrombocytopenia, Immunocompromised, Failure of outpatient treatment Patient Disposition: Admitted As Inpatient Discharge Instructions Interventions: ED Discharge Assessment Last Done: 08/13/19 14:34 The goldie's documentation has been prepared under my direction and personally reviewed by me in its entirety. I confirm that the note above accurately reflects all work, treatment, procedures, and medical decision making performed by me.
[2019-08-13 13:44] LABS: Hematocrit (blood only) 33.3 % (42-52); Hemoglobin 10.9 g/dL (14.0-18.0); Mean Corpuscular Hemoglobin 30.9 pg (25-34); Mean Corpuscular Hgb Conc 32.7 g/dL (32-36); Mean Corpuscular Volume 94.3 fL (80-100); RDW Coefficient of Variation 14.4 % (11.5-14.5); RDW Standard Deviation 48.5 fL (36.4-46.3); Red Blood Count 3.53 M/uL (4.7-6.1); White Blood Count 2.31 K/uL (4.8-10.8)
[2019-08-13 14:00] LABS: Albumin Level 3.2 gm/dl (3.4-5.0); BUN Creatinine Ratio 17.4 (10-20); Calcium 9.1 mg/dl (8.5-10.1); Creatinine Clr Calc Pharmacy 137.6 ml/min; Est GFR (African American) 122.6; Est GFR (Non-African American) 105.7; Potassium 3.7 mmol/L (3.5-5.1)
[2019-08-13 14:03] LABS: Mean Platelet Volume 8.9 fL (7.4-10.4); Platelet Count 50 K/uL (130-400)
[2019-08-13 14:04] LABS: Albumin Globulin Ratio 0.9 (0.9-2); Bilirubin,Total 0.5 mg/dl (0.2-1); Globulin 3.6 gm/dl (2.5-4.0); Total Protein 6.8 gm/dl (6.4-8.2)
[2019-08-13 14:08] LABS: Eosinophils # (auto) 0.05 K/uL (0-0.5); Eosinophils % (auto) 2.2 %; Lymphocytes # (auto) 0.84 K/uL (1.2-3.4); Lymphocytes % (auto) 36.4 %; Monocytes # (auto) 0.28 K/uL (0.11-0.59); Monocytes % (auto) 12.1 %; Neutrophils # (auto) 1.14 K/uL (1.4-6.5); Neutrophils % (auto) 49.3 %
--- NOTE | 2019-08-13 14:52 | History & Physical Report ---
Date of Service August 13, 2019 Assessment & Plan (1) Colitis: -Admit to [facility] -Patient presenting from home with reports of abdominal pain, nausea, vomiting, diarrhea -Admission to [facility] 06/04 through 06/06 for colitis and similar symptoms, infectious work-up negative at that time, felt to be secondary to chemotherapy; chemotherapy held and resumed on 07/21 and 08/04 -CT scan from 08/11/2019 ED visit: Nonspecific proctocolitis involving the descending colon, sigmoid, and rectum -Currently hemodynamically stable, afebrile -Patient with history of C. difficile and Salmonella in the past -will hold on antibiotics for now, check stool culture and C. difficile -Continue supportive care with clear liquid diet, IVF, pain and nausea control (2) Colon cancer: -Follows with Dr. Chance Meraz -Current chemotherapy regimen: 5-Fu, Avastin, leucovorin; last treatment on 08/04 (3) DM type 2 (diabetes mellitus, type 2): -Hgb A1c 7.6 05/2019 -Hold oral agents and utilize NovoLog per protocol while hospitalized (4) Pancytopenia: -Labs at recent baseline -Likely secondary to chemotherapy -Monitor CBC (5) DVT prophylaxis: -SCDs due to pancytopenia History of Present Illness Chief Complaint: Abdominal pain, nausea, vomiting, diarrhea Primary Care Provider: Duong Matt MD 58-year-old male who presents the ED for evaluation of abdominal pain, nausea, vomiting, diarrhea. Patient admitted to [facility] 06/04 through 06/06 for colitis. Infectious work-up was negative and it was felt to be secondary to patient's chemotherapy he is receiving for colon cancer. Patient's chemotherapy was held until 07/21. He received treatments on 07/21 and 08/04. He is currently on 5-FU, Avastin, leucovorin. About 5 days ago, patient developed lower abdominal pain and diarrhea. She has describes his stools as loose however not watery. He has had some associated nausea and vomiting. Denies hematemesis, coffee-ground emesis, bright red bleeding per rectum, dark tarry stools. No fevers or chills. Denies chest pain or shortness of breath. No lightheadedness, dizziness, diaphoresis, syncopal events. He denies any urinary symptoms. Patient was seen in the ED on 08/11. CT ABD/pelvis showing nonspecific proctocolitis involving the descending colon, sigmoid colon, and rectum. Patient was evaluated by the hospitalist service at that time for possible admission however patient wanted to go home. Unfortunately he has not had any improvement in his symptoms. He called his oncologist today who recommended he come back to the ED for further evaluation. In the ED, patient is hemodynamically stable. Labs are unremarkable. He was given IVF, IV Tylenol, IV Zofran. Allergies Allergy/AdvReac Type Severity Reaction Status Date / Time No Known Allergies Allergy Verified 08/13/19 13:24 Home Medications Home Medications Medication Instructions Recorded Confirmed Type metformin 1,000 mg PO BIDM 04/18/18 08/13/19 History pioglitazone 30 mg PO QAM 04/18/18 08/13/19 History Probiotic 1 cap PO QAM 08/31/18 08/13/19 History atorvastatin 40 mg PO HS 08/31/18 08/13/19 History ferrous sulfate 325 mg PO Q2D 10/02/18 08/13/19 History cyanocobalamin (vitamin B-12) 5,000 mcg PO QAM 10/13/18 08/13/19 History [Vitamin B-12] ondansetron HCl 8 mg PO Q8H PRN 06/03/19 08/13/19 History prochlorperazine maleate 10 mg PO Q6H PRN 06/03/19 08/13/19 History Magic Swizzle 5 ml PO UD PRN 08/13/19 08/13/19 History acetaminophen [Tylenol Extra 500 mg PO Q6H PRN 08/13/19 08/13/19 History Strength] bevacizumab [Avastin] 0 mg IV UD 08/13/19 08/13/19 History fluorouracil 0 mg IV UD 08/13/19 08/13/19 History leucovorin calcium 0 mg IV UD 08/13/19 08/13/19 History Past Med/Surg History Medical History Anxiety C. 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 Diverticulitis (Acute) Diverticulitis of colon with perforation (Resolved) NO SURGERY DM type 2 (diabetes mellitus, type 2) (Chronic) Dyslipidemia (Chronic) Immunocompromised (Acute) Kidney stones Obesity (Chronic) Osteoarthritis Thrombocytopenia (Acute) Surgical History History of colonoscopy History of cystoscopy STONE REMOVAL WITH STENT PLACED History of esophagogastroduodenoscopy (EGD) History of tooth extraction History of vascular access device RIGHT UPPER CHEST PLACED 09/2018 Hx of hernia repair (Chronic) Hx of tonsillectomy (Chronic) Family History Mother , Age 62 Breast cancer Father , Age 62 Stroke Sister Family history of diabetes mellitus Brother Family history of diabetes mellitus Brother Family history of diabetes mellitus Social History Preferred Language: Polish Communication Ability: Effective Visual Impairment: No Limitations 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 Presley's addendum for physical exam. Results & Data Vital Signs (Past 12 Hours) Vital Signs Temp Pulse Resp BP Pulse Ox 08/13/19 12:54 36.8 C 86 18 144/88 H 100 Laboratory Results Short CBC 08/13/19 Range/Units 13:30 WBC 2.31 L (4.8-10.8) K/uL Hgb 10.9 L (14.0-18.0) g/dL Hct 33.3 L (42-52) % Plt Count 50 L (130-400) K/uL BMP 08/13/19 13:30 Sodium 140 Potassium 3.7 Chloride 110 H Carbon Dioxide 26 BUN 11 Creatinine 0.65 Glucose 118 H Calcium 9.1 Liver Function 08/13/19 Range/Units 13:30 Total Bilirubin 0.5 (0.2-1) mg/dl AST 23 (15-37) U/L ALT 27 (12-78) U/L Alkaline Phosphatase 128 H (45-117) U/L Albumin 3.2 L (3.4-5.0) gm/dl Diagnostic Findings 08/11/2019 CT ABD/PELVIS IMPRESSION: 1. Wall thickening of the descending colon, sigmoid and rectum is suggestive of a nonspecific proctocolitis. 2. No bowel obstruction or pneumoperitoneum. 3. Slight interval increase in size of the previously described adenopathy, suspicious for progressive disease. 4. Splenomegaly with stigmata of portal hypertension. 5. Cholelithiasis without CT evidence of acute cholecystitis. 6. Additional findings as above. Code Status & VTE Plan Code Status Patient is a full code as per Dr. Presley's discussion with him. VTE Prophylaxis Plan VTE Prophylaxis will be ordered: Yes Supervising Physician Co-Signing Physician Notes I performed a history and physical examination of the patient on 08/13/2019. I have discussed the patient's management with the advanced practitioner. Please refer to the [employer] note for the documented findings and plan of care. The patient has stage IV colon cancer and is on chemotherapy with Avastin, fluorouracil and leucovorin of which he received a dose on 08/04. 2 days later he developed lower abdominal pain that was colicky in nature and was exacerbated by eating. The consistency of his stool was soft but he denied any multiple loose stools during the day. He also did not have any vomiting but felt nauseous. He came to the ER on 08/[address] scan of the abdomen and pelvis with IV contrast showed colitis of the descending and sigmoid colon. Admission was offered but patient preferred to go home. He was taking Tylenol for the pain but his pain was not getting better. He called the oncology department who recommended that he came to the ER. The patient states that overall the pain is a little better but is still not gone. He denies any fever. He still denied any multiple loose stools a day. On exam he had tenderness on the left lower quadrant. The rest of the exam was unremarkable. Given his history of C. difficile and Salmonella, will obtain stool to test for these pathogens. Hold off on any antibiotics for now. Provide some IV fluids and give clear liquid diet for now. If not infectious, this could be a side effect of the chemotherapeutic agents.
[2019-08-13] MEDS ORDERED: GLUCOSE 40% GEL 15 GM TUBE PO PRN (15:11)
[2019-08-13] MEDS ORDERED: DEXTROSE 50% 50 ML SYRINGE IV PRN (15:11)
[2019-08-13] MEDS ORDERED: ACETAMINOPHEN 325 MG TAB PO PRN (15:11)
[2019-08-13] MEDS ORDERED: CARBOHYDRATES FOR HYPOGLYCEMIA PO PRN (15:11)
[2019-08-13] MEDS ORDERED: GLUCAGON FOR INJ 1 MG VIAL SQ PRN (15:11)
[2019-08-13] MEDS ORDERED: GLUCOSE 10 TABS/TUBE PO PRN (15:11)
[2019-08-13] MEDS: SODIUM CHLORIDE 0.9% 1000ML 1,000 ML IV SCH ×2 (15:24→23:11)
[2019-08-13] MEDS: INSULIN ASPART 100 UNITS/ML 3 ML PEN SC SCH ×2 (17:57→21:10)
[2019-08-13 19:04] LABS: Appearance Urine Clear (Clear); Bilirubin Urine Negative (Negative); Blood Urine Negative (Negative); Color Urine Yellow; Glucose Urine UA Trace (Negative); Ketones Urine Negative (Negative); Leukocyte Esterase Urine Negative (Negative); Nitrite Urine Negative (Negative); Protein Urine Negative (Negative); Specific Gravity Urine 1.022 (1.000-1.030); Urobilinogen Urine Negative (Negative); pH Urine 5.5 (4.5-7.5)
[2019-08-13] MEDS: ACETAMINOPHEN 1,000 MG/100 ML VIAL IV PRN (19:31)
[2019-08-13] MEDS: ATORVASTATIN 40 MG TAB PO SCH (21:02)
[2019-08-14] MEDS: ACETAMINOPHEN 1,000 MG/100 ML VIAL IV PRN ×2 (05:50→16:00)
[2019-08-14 06:29] LABS: Hematocrit (blood only) 31.3 % (42-52); Mean Corpuscular Hemoglobin 30.7 pg (25-34); Mean Corpuscular Hgb Conc 31.9 g/dL (32-36); RDW Coefficient of Variation 14.4 % (11.5-14.5); RDW Standard Deviation 49.9 fL (36.4-46.3); Red Blood Count 3.26 M/uL (4.7-6.1)
[2019-08-14 06:44] LABS: Mean Platelet Volume 8.9 fL (7.4-10.4); Platelet Count 54 K/uL (130-400)
[2019-08-14 07:08] LABS: BUN Creatinine Ratio 11.7 (10-20); Calcium 8.4 mg/dl (8.5-10.1); Creatinine Clr Calc Pharmacy 127.8 ml/min; Est GFR (African American) 118.2; Potassium 3.7 mmol/L (3.5-5.1)
[2019-08-14] MEDS: SODIUM CHLORIDE 0.9% 1000ML 1,000 ML IV SCH ×3 (07:36→22:32)
[2019-08-14] MEDS: LACTOBACILLUS ACIDOPHILUS (FLORANEX) TAB PO SCH (07:36)
[2019-08-14] MEDS: INSULIN ASPART 100 UNITS/ML 3 ML PEN SC SCH ×4 (08:34→21:56)
--- NOTE | 2019-08-14 10:30 | Hospitalist Progress Note ---
Date of Service August 14, 2019 Assessment & Plan (1) Colitis: hx of stage 4 colon Ca on chemo -Patient presented from home with reports of abdominal pain, nausea, vomiting, diarrhea -Admission to [facility] 06/04 through 06/06 for colitis and similar symptoms, infectious work-up negative at that time, felt to be secondary to chemotherapy; chemotherapy held then resumed on 07/21 and 08/04 -CT scan from 08/11/2019 ED visit: Nonspecific proctocolitis involving the descending colon, sigmoid, and rectum -Patient with history of C. difficile and Salmonella in the past -will hold on antibiotics for now, check stool culture and C. difficile -Continue supportive care with clear liquid diet, IVF, (2) Colon cancer: -Follows with Dr. Chance Meraz -Current chemotherapy regimen: 5-Fu, Avastin, leucovorin; last treatment on 08/04 (3) DM type 2 (diabetes mellitus, type 2): -Hgb A1c 7.6 05/2019 -Hold oral agents and utilize NovoLog per protocol while hospitalized (4) Pancytopenia: -Labs at recent baseline -Likely secondary to chemotherapy -Monitor CBC Ordered for neutropenic precaution (5) DVT prophylaxis: -SCDs due to pancytopenia CODE STATUS: Full code Disposition: Expected to be discharged home when medically stable Subjective Patient reports improvement of abdominal pain, does not have any nausea vomiting, no diarrhea or loose stool no blood in stool Afebrile, tolerating clear liquid diet well Review of Systems Review of Systems: All systems reviewed & are unremarkable except as noted in HPI & below Gastrointestinal: no nausea, no vomiting, no diarrhea/loose stools and no blood in stools Physical Exam Constitutional: WD/WN, vitals as above Eyes: PERRL, conjunctivae normal, anicteric sclerae ENMT: external ear and nose normal, oropharynx normal Neck: trachea midline, no thyromegaly Respiratory: normal respiratory effort, lungs clear to auscultation Cardiovascular: RRR, no murmur, no edema Gastrointestinal (Abdomen): normal bowel sounds, soft, nontender, no he patosplenomegaly Musculoskeletal: no cyanosis or clubbing, extremities motor strength 5/5 Skin: no rashes, warm and dry Neurologic: PERRL, EOMI, accommodation nl, no face palsy, no dysarthria Psychiatric: A+Ox3, euthymic affect Results & Data ([facility]) Vital Signs (Past 12 Hours) Vital Signs Temp Pulse Resp BP Pulse Ox 08/14/19 07:00 36.3 C L 65 18 114/72 99 08/14/19 04:12 36.8 C 67 16 142/74 H 98 08/13/19 23:21 36.3 C L 69 19 122/73 97
[2019-08-14] MEDS: ATORVASTATIN 40 MG TAB PO SCH (20:28)
[2019-08-15 06:26] LABS: Hematocrit (blood only) 32.7 % (42-52); Hemoglobin 10.4 g/dL (14.0-18.0); Mean Corpuscular Hgb Conc 31.8 g/dL (32-36); Mean Corpuscular Volume 97.3 fL (80-100); RDW Coefficient of Variation 14.7 % (11.5-14.5); RDW Standard Deviation 51.7 fL (36.4-46.3); Red Blood Count 3.36 M/uL (4.7-6.1); White Blood Count 1.94 K/uL (4.8-10.8)
[2019-08-15] MEDS: SODIUM CHLORIDE 0.9% 1000ML 1,000 ML IV SCH (06:29)
[2019-08-15 06:41] LABS: Mean Platelet Volume 9.7 fL (7.4-10.4); Platelet Count 51 K/uL (130-400)
[2019-08-15 06:50] LABS: ALC (manual) 0.54 K/uL (1.2-3.4); ANC (manual) 1.13 K/uL (1.4-6.5); Basophils # (manual) 0.03 K/uL (0-0.2); Basophils % (manual) 1.7 %; Eosinophils # (manual) 0.03 K/uL (0-0.5); Eosinophils % (manual) 1.7 %; Lymphocytes # (manual) 0.54 K/uL (1.2-3.4); Lymphocytes % (manual) 27.8 %; Monocytes # (manual) 0.19 K/uL (0.11-0.59); Monocytes % (manual) 9.6 %; Myelocytes # (manual) 0.02 K/uL (0-0); Myelocytes % (manual) 0.9 %; Neutrophils # (manual) 1.13 K/uL (1.4-6.5); Neutrophils % (manual) 58.3 %; RBC Morphology Unremarkable
[2019-08-15] MEDS: LACTOBACILLUS ACIDOPHILUS (FLORANEX) TAB PO SCH (08:24)
[2019-08-15] MEDS: INSULIN ASPART 100 UNITS/ML 3 ML PEN SC SCH ×4 (08:26→20:58)
[2019-08-15] MEDS ORDERED: FERROUS SULFATE 325 MG TAB PO SCH (09:00)
--- NOTE | 2019-08-15 12:41 | Hospitalist Progress Note ---
Date of Service August 15, 2019 Assessment & Plan (1) Colitis: Presented with abdominal pain nausea vomiting, possible secondary to chemo induced colitis Treated with IV fluids, bowel rest No evidence of any active infectious process, no fever chills or leukocytosis(Patient is neutropenic at baseline secondary to recent chemo treatment) No complaint of abdominal pain, no nausea vomiting today Tolerating clear liquid diet, Diet advanced to solid, low residue, lactose-free diet Continue to monitor If able to tolerate solid diet, without any recurrence of GI symptoms, possible discharge home tomorrow hx of stage 4 colon Ca on chemo -Patient presented from home with reports of abdominal pain, nausea, vomiting, diarrhea -Admission to [facility] 06/04 through 06/06 for colitis and similar symptoms, infectious work-up negative at that time, felt to be secondary to chemotherapy; chemotherapy held then resumed on 07/21 and 08/04 -CT scan from 08/11/2019 ED visit: Nonspecific proctocolitis involving the descending colon, sigmoid, and rectum -Patient with history of C. difficile and Salmonella in the past -Stool culture negative for Salmonella Or other bacterial infection GI symptom resolved with supportive care only (2) Colon cancer: -Follows with Dr. Chance Meraz -Current chemotherapy regimen: 5-Fu, Avastin, leucovorin; last treatment on 08/04 (3) DM type 2 (diabetes mellitus, type 2): -Hgb A1c 7.6 05/2019 -Hold oral agents and utilize NovoLog per protocol while hospitalized Outpatient oral hypoglycemics will be resumed on discharge (4) Pancytopenia: -Labs at recent baseline -Likely secondary to chemotherapy -Monitor CBC Ordered for neutropenic precaution (5) DVT prophylaxis: -SCDs due to pancytopenia CODE STATUS: Full code Disposition: Possible discharge home tomorrow on 08/16/2019 Subjective No complaint of abdominal pain, no nausea vomiting, tolerating Clear liquid diet well, has normal bowel movement Willing to advance to solid food today Review of Systems Review of Systems: ROS per HPI, all other systems reviewed and negative Gastrointestinal: no abdominal pain, no bloating, no nausea, no vomiting, no change in stools and no diarrhea/loose stools Physical Exam Constitutional: WD/WN, vitals as above Eyes: PERRL, conjunctivae normal, anicteric sclerae ENMT: external ear and nose normal, oropharynx normal Neck: trachea midline, no thyromegaly Respiratory: normal respiratory effort, lungs clear to auscultation Cardiovascular: RRR, no murmur, no edema Gastrointestinal (Abdomen): normal bowel sounds, soft, nontender, no hepatosplenomegaly Musculoskeletal: no cyanosis or clubbing, extremities motor strength 5/5 Skin: no rashes, warm and dry Neurologic: PERRL, EOMI, accommodation nl, no face palsy, no dysarthria Psychiatric: A+Ox3, euthymic affect Results & Data ([facility]) Vital Signs (Past 12 Hours) Vital Signs Temp Pulse Resp BP BP Pulse Ox 08/15/19 11:47 36.7 C 61 20 150/91 H 97 08/15/19 07:17 36.5 C 71 20 138/84 97 08/15/19 04:06 36.7 C 65 15 142/77 H 96
[2019-08-15] MEDS: HEPARIN 100 UNIT/ML 5ML FLUSH FLUSH PRN (13:45)
[2019-08-15] MEDS: ATORVASTATIN 40 MG TAB PO SCH (20:58)
[2019-08-16] MEDS: HEPARIN 100 UNIT/ML 5ML FLUSH FLUSH PRN ×2 (06:05→12:34)
[2019-08-16 06:20] LABS: Hematocrit (blood only) 32.1 % (42-52); Hemoglobin 10.4 g/dL (14.0-18.0); Mean Corpuscular Hemoglobin 30.7 pg (25-34); Mean Corpuscular Hgb Conc 32.4 g/dL (32-36); Mean Corpuscular Volume 94.7 fL (80-100); RDW Coefficient of Variation 14.6 % (11.5-14.5); RDW Standard Deviation 49.4 fL (36.4-46.3); Red Blood Count 3.39 M/uL (4.7-6.1); White Blood Count 2.16 K/uL (4.8-10.8)
[2019-08-16 06:30] LABS: Mean Platelet Volume 9.4 fL (7.4-10.4); Platelet Count 48 K/uL (130-400)
[2019-08-16 06:47] LABS: Eosinophils # (auto) 0.04 K/uL (0-0.5); Eosinophils % (auto) 1.9 %; Lymphocytes # (auto) 0.93 K/uL (1.2-3.4); Lymphocytes % (auto) 43.1 %; Monocytes # (auto) 0.18 K/uL (0.11-0.59); Monocytes % (auto) 8.3 %; Neutrophils # (auto) 1.01 K/uL (1.4-6.5); Neutrophils % (auto) 46.7 %; RBC Morphology Unremarkable
[2019-08-16] MEDS: LACTOBACILLUS ACIDOPHILUS (FLORANEX) TAB PO SCH (07:53)
[2019-08-16] MEDS: INSULIN ASPART 100 UNITS/ML 3 ML PEN SC SCH ×2 (08:29→12:33)
--- NOTE | 2019-08-16 10:15 | Hospitalist Progress Note ---
Date of Service August 16, 2019 Assessment & Plan (1) Colitis: GI symptom has completely resolved today Diet advanced to solid, has been tolerating well No complaint of abdominal pain, no nausea, no vomiting, no loose stool Will be discharged home today Presented with abdominal pain nausea vomiting, possible secondary to chemo induced colitis Treated with IV fluids, bowel rest-with improvement of symptom No evidence of any active infectious process, no fever chills or leukocytosis(P atient is neutropenic at baseline secondary to recent chemo treatment) hx of stage 4 colon Ca on chemo -Patient presented from home with reports of abdominal pain, nausea, vomiting, diarrhea -Admission to [facility] 06/04 through 06/06 for colitis and similar symptoms, infectious work-up negative at that time, felt to be secondary to chemotherapy; chemotherapy held then resumed on 07/21 and 08/04 -CT scan from 08/11/2019 ED visit: Nonspecific proctocolitis involving the descending colon, sigmoid, and rectum -Patient with history of C. difficile and Salmonella in the past -Stool culture negative for Salmonella Or other bacterial infection GI symptom resolved with supportive care only Patient is a scheduled to see his hematology oncology Dr. Meraz on 08/18/2019 for follow-up (2) Colon cancer: -Follows with Dr. Chance Meraz -Current chemotherapy regimen: 5-Fu, Avastin, leucovorin; last treatment on 08/04 (3) DM type 2 (diabetes mellitus, type 2): -Hgb A1c 7.6 05/2019-suggestive of good control diabetes -utilized NovoLog per protocol while hospitalized Patient's home antidiabetic regimen: Metformin 1 g twice daily Glipizide Metformin is known to cause GI side effect, nausea vomiting, diarrhea Metformin dose reduced to 1 g daily, which may possibly benefit with patient's recurrent GI symptoms Will need continued follow-up with family physician for diabetic management Consider changing metformin to a different oral hypoglycemics with minimum GI side effect (4) Pancytopenia: -Labs at recent baseline -Likely secondary to chemotherapy - Thrombocytopenia Possible chemo induced Platelet count 48 today No evidence of any active bleeding, avoid antiplatelets Patient will have repeat blood work: CBC/CMP in hematology clinic in next 2 days (5) DVT prophylaxis: -SCDs due to pancytopenia CODE STATUS: Full code Disposition: Stable to be discharged home today Admission and Anticipated Discharge Date Admission Date: August 13, 2019 Subjective Feels fine today, no nausea vomiting, normal bowel movement Has been tolerating solid low residue diet yesterday's dinner, 2 days a.m., without any difficulty No fever or chills Medically stable to be discharged home today Review of Systems Review of Systems: ROS per HPI, all other systems reviewed and negative Gastrointestinal: as per Subjective / HPI; no abdominal pain, no nausea, no vomiting and no diarrhea/loose stools Physical Exam Constitutional: WD/WN, vitals as above Eyes: PERRL, conjunctivae normal, anicteric sclerae ENMT: external ear and nose normal, oropharynx normal Neck: trachea midline, no thyromegaly Respiratory: normal respiratory effort, lungs clear to auscultation Cardiovascular: RRR, no murmur, no edema Gastrointestinal (Abdomen): normal bowel sounds, soft, nontender, no hepatosplenomegaly Musculoskeletal: no cyanosis or clubbing, extremities motor strength 5/5 Skin: no rashes, warm and dry Neurologic: PERRL, EOMI, accommodation nl, no face palsy, no dysarthria Psychiatric: A+Ox3, euthymic affect Results & Data ([facility]) Vital Signs (Past 12 Hours) Vital Signs Temp Pulse Resp BP Pulse Ox 08/16/19 06:31 36.7 C 58 L 18 155/90 H 97 08/15/19 22:45 36.6 C 59 L 20 143/80 H 97
--- NOTE | 2019-08-16 10:22 | Discharge Summary ---
Date of Service August 16, 2019 Admission HPI Per Admitting Provider 58-year-old male who presents the ED for evaluation of abdominal pain, nausea, vomiting, diarrhea. Patient admitted to [facility] 06/04 through 06/06 for colitis. Infectious work-up was negative and it was felt to be secondary to patient's chemotherapy he is receiving for colon cancer. Patient's chemotherapy was held until 07/21. He received treatments on 07/21 and 08/04. He is currently on 5-FU, Avastin, leucovorin. About 5 days ago, patient developed lower abdominal pain and diarrhea. She has describes his stools as loose however not watery. He has had some associated nausea and vomiting. Denies hematemesis, coffee-ground emesis, bright red bleeding per rectum, dark tarry stools. No fevers or chills. Denies chest pain or shortness of breath. No lightheadedness, dizziness, diaphoresis, syncopal events. He denies any urinary symptoms. Patient was seen in the ED on 08/11. CT ABD/pelvis showing nonspecific proctocolitis involving the descending colon, sigmoid colon, and rectum. Patient was evaluated by the hospitalist service at that time for possible admission however patient wanted to go home. Unfortunately he has not had any improvement in his symptoms. He called his oncologist today who recommended he come back to the ED for further evaluation. In the ED, patient is hemodynamically stable. Labs are unremarkable. He was given IVF, IV Tylenol, IV Zofran. Principal Diagnosis Abdominal pain, nausea vomiting, possible chemo induced colitis Stage IV: CA on chemo treatment Discharge Exam Constitutional WD/WN, vitals as above Eyes PERRL, conjunctivae normal, anicteric sclerae ENMT external ear and nose normal, oropharynx normal Neck trachea midline, no thyromegaly Respiratory normal respiratory effort, lungs clear to auscultation Cardiovascular RRR, no murmur, no edema Gastrointestinal (Abdomen) normal bowel sounds, soft, nontender, no hepatosplenomegaly Musculoskeletal no cyanosis or clubbing, extremities motor strength 5/5 Skin no rashes, warm and dry Neurologic PERRL, EOMI, accommodation nl, no face palsy, no dysarthria Psychiatric A+Ox3, euthymic affect Discharge Data Allergies Allergy/AdvReac Type Severity Reaction Status Date / Time No Known Allergies Allergy Verified 08/13/19 13:24 Consultations 08/13/19 13:20 ED Decision to Admit Stat Hospital Course (1) Colitis: GI symptom has completely resolved today Diet advanced to solid, has been tolerating well No complaint of abdominal pain, no nausea, no vomiting, no loose stool Will be discharged home today Presented with abdominal pain nausea vomiting, possible secondary to chemo induced colitis Treated with IV fluids, bowel rest-with improvement of symptom No evidence of any active infectious process, no fever chills or leukocytosis(Patient is neutropenic at baseline secondary to recent chemo treatment) hx of stage 4 colon Ca on chemo -Patient presented from home with reports of abdominal pain, nausea, vomiting, diarrhea -Admission to [facility] 06/04 through 06/06 for colitis and similar symptoms, infect ious work-up negative at that time, felt to be secondary to chemotherapy; chemotherapy held then resumed on 07/21 and 08/04 -CT scan from 08/11/2019 ED visit: Nonspecific proctocolitis involving the descending colon, sigmoid, and rectum -Patient with history of C. difficile and Salmonella in the past -Stool culture negative for Salmonella Or other bacterial infection GI symptom resolved with supportive care only Patient is a scheduled to see his hematology oncology Dr. Meraz on 08/18/2019 for follow-up (2) Colon cancer: -Follows with Dr. Chance Meraz -Current chemotherapy regimen: 5-Fu, Avastin, leucovorin; last treatment on 08/04 (3) DM type 2 (diabetes mellitus, type 2): -Hgb A1c 7.6 05/2019-suggestive of good control diabetes -utilized NovoLog per protocol while hospitalized Patient's home antidiabetic regimen: Metformin 1 g twice daily Glipizide Metformin is known to cause GI side effect, nausea vomiting, diarrhea Metformin dose reduced to 1 g daily, which may possibly benefit with patient's recurrent GI symptoms Will need continued follow-up with family physician for diabetic management Consider changing metformin to a different oral hypoglycemics with minimum GI side effect (4) Pancytopenia: -Labs at recent baseline -Likely secondary to chemotherapy - Thrombocytopenia Possible chemo induced Platelet count 48 today No evidence of any active bleeding, avoid antiplatelets Patient will have repeat blood work: CBC/CMP in hematology clinic in next 2 days (5) DVT prophylaxis: -SCDs due to pancytopenia CODE STATUS: Full code Disposition: Stable to be discharged home today Total Time Total Time Spent Total Time Spent (In Minutes): Approximately 40 minutes Total Time Includes: Examination of the Patient, Discharge Planning and Medication Reconciliation Discharge Plan Discharge Items Patient Disposition: Home - Self-Care Reason For Visit: ABD PAIN,CANCER PT Discharge Diagnosis: Abdominal pain, nausea vomiting, possible chemo induced colitis Stage IV: CA on chemo treatment Activity: Resume your previous activity Non-emergency contact: Primary Care Provider Call non-emergency contact if: you have any medication questions Follow-up/Referrals: Chance Meraz MD [Surgeon] - 08/18/19 (Follow-up with [facility] oncologist Dr. Meraz on 08/18/2019 as per schedule) Duong Matt MD [Primary Care Provider] - 08/19/19 1:45 pm (IF YOU NEED TO RESCHEDULE THIS APPOINTMENT, PLEASE CALL [phone].) Dietitian Info: Avoid dairy products, high-fiber food for at least 1 week Diet: Low Fiber and Lactose Intolerant Addtl Attending Provider Instructions: Medication change: Take Compazine 1 tablet 3 times daily scheduled, Can take Zofran as needed if developed persistent nausea Metformin dose changed to 1 g daily, which may help to reduce nausea, abdominal pain, common side effect for metformin Please discussed with your family physician, to possibly change metformin to a different oral antidiabetic medication with less side effect for nausea vomiting Follow-up with Dr. Chance Meraz on Friday08/18/2019 Lab work: CBC with differential, comprehensive metabolic panel on 08/18/2019 Pending Studies at Discharge: Yes Studies:: Lab work: CBC with differential, comprehensive metabolic panel on 08/18/2019 Stand-Alone Forms: Call Back Authorization, [facility] Georgina Goodman, Work/School Release (Inpt), Smoking Cessation Medications and DC Order Prescriptions: New prochlorperazine maleate 10 mg tablet 10 mg PO Q8H 30 Days Qty: 90 RF: 3 ondansetron HCl [Zofran] 8 mg tablet 8 mg PO Q8H PRN (Reason: nausea and vomiting) 30 Days Qty: 90 RF: 3 Continued pioglitazone 30 mg Tablet 30 mg PO QAM RF: 0 leucovorin calcium 50 mg Recon Soln 0 mg IV UD RF: 0 acetaminophen [Tylenol Extra Strength] 500 mg Tablet 500 mg PO Q6H PRN (Reason: Pain) RF: 0 Avastin 25 mg/mL Solution 0 mg IV UD RF: 0 fluorouracil 500 mg/10 mL Solution 0 mg IV UD RF: 0 Magic Swizzle 5 ml PO UD PRN (Reason: thrush) RF: 0 atorvastatin 40 mg Tablet 40 mg PO HS RF: 0 Probiotic 10 billion cell Capsule 1 cap PO QAM RF: 0 ferrous sulfate 325 mg (65 mg iron) Tablet 325 mg PO Q2D RF: 0 cyanocobalamin (vitamin B-12) [Vitamin B-12] 5,000 mcg Tablet, Sublingual 5,000 mcg PO QAM RF: 0 Changed metformin 1,000 mg Tablet 1,000 mg PO DAILY Qty: 0 RF: 0 Discontinued ondansetron HCl 8 mg tablet 8 mg PO Q8H PRN (Reason: Nausea And Vomiting) RF: 0 Discharge Orders: Discharge Order (Routine); Ordered 08/16/19 Ordered By: Haydee Ahmadi/Other Patient Handouts: Diet Low Residue Admission Data Admit Date/Time: 08/13/19 13:37 Attending Provider: Haydee Leyva Admit Provider: Milady Presley Primary Care Provider: Duong Matt Other Providers: Milady Presley
== END 2019-08-16 14:10 | disposition home health service (06) | DRG 393 ==
LOC: ED 12:53 → SUATTDRO 13:37 → 4W 13:37

== ENCOUNTER 2020-04-01 20:32 | Inpatient (IN) ==
[2020-04-01] MEDS ORDERED: ONDANSETRON INJ 2 MG/ML 2 ML VIAL IV STA (20:52)
--- NOTE | 2020-04-01 20:57 | Emergency Department Note ---
Impression & Plan Hypotension, Weakness, Acute dehydration, Diarrhea, Anemia, Hypomagnesemia ED Provider Note NAME: VISHAL LEO AGE: 59 SEX: M : 1960 ARRIVES VIA: Walk-In INFORMANT: [Patient][family] ED PROVIDER(S): [Alton Landaverde MD] CHIEF COMPLAINT: Weakness HISTORY OF PRESENT ILLNESS: The patient is a 59-year-old male with colon cancer. He states that around 10 days ago he had a chemotherapy treatment. Since that timeframe, he has had diarrhea, weakness, fatigue. He has had a little bit of a cough. No chest pain or shortness of breath. The patient has not fallen recently. He can walk but has to be careful because he is so weak. He has had diarrhea every time he eats or drinks. He has no appetite. No vomiting. No real abdominal pain except right before he has a bowel movement. His stool has been dark in color. The patient was noticed to be confused by his family the last few days. He is more forgetful and does not seem to be thinking as clearly. He has not had any fever. His family felt that his heart rate was quicker than his baseline. REVIEW OF SYSTEMS: See HPI for pertinent positives and negatives. A total of ten systems were reviewed and were otherwise negative. PMHx/PSHx: See Below SOCIAL HISTORY: See Below. PHYSICAL EXAM: GENERAL: Patient is in no acute distress. HEENT: No acute trauma, normocephalic atraumatic, mucous membranes dry, no nasal congestion, no scleral icterus. NECK: No stridor, no adenopathy, no meningismus, trachea is midline. LUNGS: Clear to auscultation bilaterally, no wheeze, no rhonchi, breath sounds equal. HEART: Without murmurs gallops or rubs, regular rate and rhythm. ABDOMEN: Soft, nontender, bowel sounds positive, no hernias, no peritonitis. EXTREMITIES: No cyanosis or edema, full range of motion of all the joints without pain or difficulty, no signs for acute trauma. NEUROLOGIC: Oriented x 3, no acute motor or sensory deficits, no focal weakness. SKIN: No rash, no jaundice, no diaphoresis. Rectal: Dark stool, trace heme positive. DIFFERENTIAL DIAGNOSIS: Infection, dehydration, metabolic abnormality, hypo/hyperglycemia, chemotherapy reaction, GI bleeding, electrolyte disturbance, anemia, hypoxia, cardiac sources, intracerebral event, toxicologic, neurologic, as well as other pathologies. EMERGENCY DEPARTMENT COURSE/PROCEDURES: ECG: Indication was weakness. The ECG shows a normal sinus rhythm, there is a possible old anterior septal infarct. The rate is 85. There is no ST elevation, no PVCs. The QTc is 445. Continuous Cardiac Monitoring: An order was placed for continuous cardiac monitoring. The monitor shows a rate of 74 with normal sinus rhythm. Critical Care Note: I have personally spent greater than 44 minutes of critical care time in the direct management of this patient. This includes bedside care, interpretation of diagnostic studies, and testing, discussion with consultants, patient, and family members, and other required patient management activities. This 44 minutes is in excess of all separately billable procedures. MEDICAL DECISION MAKING: There is a lower white blood cell count and platelet count. These 2 findings have been documented before. The patient is anemic with a hemoglobin of 9.4. This is about a two-point drop for him. I did perform a rectal exam, stool was darker in color and only trace heme positive. His hemoglobin will need to be followed to be sure he does not drop to the point where he requires transfusion. There is no coagulopathy. Magnesium was somewhat low at 1.7, no kidney failure. Alk phos was elevated, the bilirubin and remaining liver enzymes were unremar kable. The patient appeared to be in a euthyroid state. ECG showed a sinus rhythm, no acute ischemia. Cardiac enzyme testing x1 was not consistent with acute cardiac injury. Chest film does not show pneumonia or CHF. Brain CT showed no acute bleed or mass-effect. The patient received IV Pepcid, he was given IV saline and IV lactated Ringer's. He was given IV magnesium and IV Zofran. The patient presents hypotensive, he has had persistent diarrhea and nausea. He feels quite weak. There has been some confusion at times as per his family. He is in need of hospitalization. He is very likely dehydrated. His symptoms may be from his chemotherapy. He requires IV hydration, IV electrolyte replacement and some monitoring. I spoke to the patient, I talked with his family. I spoke to case management, the on-call hospitalist has been consulted. Past Med/Surg History Medical History Anxiety C. difficile colitis hx ~2018. 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 Depression Diverticulitis of colon with perforation NO SURGERY DM type 2 (diabetes mellitus, type 2) Dyslipidemia Immunocompromised Kidney stones Obesity Osteoarthritis Pancytopenia Follows with heme Splenomegaly r/t chemotherapy Surgical History History of colonoscopy History of cystoscopy STONE REMOVAL WITH STENT PLACED History of esophagogastroduodenoscopy (EGD) History of tooth extraction History of vascular access device RIGHT UPPER CHEST PLACED 09/2018 Hx of hernia repair Hx of tonsillectomy Family History Mother , Age 62 Breast cancer Father , Age 62 Stroke Sister Family history of diabetes mellitus Brother Family history of diabetes mellitus Brother Family history of diabetes mellitus Other No family history of adverse response to anesthesia Social History Smoking Status: Former smoker Tobacco Type: Cigarettes Second Hand Exposure: No; Hx Alcohol Use: No Hx Substance Use: No Preferred Language: Yemeni Communication Ability: Effective Visual Impairment: No Limitations Rabbler Required: No Beliefs That Will Affect Care: None Current Living Situation: Spouse and Family Feels Safe at Home: Yes Assistive Devices: Glasses Allergies Allergies Allergy/AdvReac Type Severity Reaction Status Date / Time No Known Allergies Allergy Verified 04/01/20 21:57 Home Meds Home Medications Medication Instructions Recorded Confirmed pioglitazone [Actos] 30 mg PO QAM 04/18/18 04/01/20 ferrous sulfate 325 mg PO Q2D 10/02/18 04/01/20 Avastin 0 mg IV UD 08/13/19 04/01/20 acetaminophen [Tylenol Extra 500 mg PO Q6H PRN 08/13/19 04/01/20 Strength] Jardiance 10 mg PO QAM 08/31/19 04/01/20 oxycodone-acetaminophen 1 tab PO Q6 PRN 12/27/19 04/01/20 prochlorperazine maleate 10 mg PO Q6H 12/27/19 04/01/20 [Compazine] cyanocobalamin (vitamin B-12) 500 mcg PO QAM 02/11/20 04/01/20 [Vitamin B-12] diphenoxylate-atropine 1 tab PO QID PRN 02/11/20 04/01/20 hyoscyamine sulfate [Levsin] 0.125 mg PO Q6H PRN 02/11/20 04/01/20 irinotecan 0 mg IV UD 04/01/20 04/01/20 morphine 15 mg PO Q12H 04/01/20 04/01/20 omeprazole 20 mg PO QAM 04/01/20 04/01/20 potassium chloride [Klor-Con M10] 10 meq PO BID 04/01/20 04/01/20 Previous Rx's Medication Instructions Recorded ondansetron HCl [Zofran] 8 mg PO Q8H PRN 30 Days #90 tab 08/16/19 Results & Data (ED) Vital Signs Vital Signs - 24 hr 04/01/20 20:33 04/01/20 21:01 04/01/20 21:23 Temperature 36.7 C Temperature Source Oral Pulse Rate 105 H 86 Respiratory Rate 18 20 Respiratory Effort / Characteristics Non-Labored Spontaneous Respiratory Depth Normal Blood Pressure 93/64 L 95/63 L Blood Pressure Mean 73 66 Blood Pressure Position Sitting Pulse Oximetry 97 95 94 Oxygen Delivery Method Room Air Room Air Sepsis Recent Fever Within 48 Hours No Sepsis New/Unexplained Change in Mental Status Yes Sepsis Action Taken by Nursing Physician Notified 04/01/20 21:30 04/01/20 22:07 04/01/20 22:33 Temperature Temperature Source Pulse Rate 81 79 81 Respiratory Rate 18 18 16 Respiratory Effort / Characteristics Respiratory Depth Blood Pressure 90/59 L 92/60 L 106/68 Blood Pressure Mean 63 64 77 Blood Pressure Position Pulse Oximetry 94 97 98 Oxygen Delivery Method Sepsis Recent Fever Within 48 Hours Sepsis New/Unexplained Change in Mental Status Sepsis Action Taken by Nursing 04/01/20 23:00 04/01/20 23:08 Temperature Temperature Source Pulse Rate 75 75 Respiratory Rate 16 16 Respiratory Effort / Characteristics Respiratory Depth Blood Pressure 84/53 L 83/58 L Blood Pressure Mean 56 64 Blood Pressure Position Pulse Oximetry 95 95 Oxygen Delivery Method Sepsis Recent Fever Within 48 Hours Sepsis New/Unexplained Change in Mental Status Sepsis Action Taken by Shelter Medications Current Medication List: was personally reviewed by me Laboratory Data Attestation: I reviewed the patient's lab results. Result diagrams: 04/01/20 21:15 04/01/20 21:15 Lab Results 04/01/20 04/01/20 04/01/20 Range/Units 21:15 21:15 21:15 WBC 3.29 L (4.8-10.8) K/uL RBC 3.16 L (4.7-6.1) M/uL Hgb 9.4 L (14.0-18.0) g/dL Hct 29.3 L (42-52) % MCV 92.7 (80-100) fL MCH 29.7 (25-34) pg MCHC 32.1 (32-36) g/dL RDW Std Deviation 61.9 H (36.4-46.3) fL RDW Coeff of Ivette 18.6 H (11.5-14.5) % Plt Count 91 L (130-400) K/uL MPV 9.2 (7.4-10.4) fL Immature Gran % (Auto) 2.4 % Neut % (Auto) 45.9 % Lymph % (Auto) 23.1 % [place] % (Auto) 22.5 % Eos % (Auto) 5.8 % Baso % (Auto) 0.3 % Neut # (Auto) 1.51 (1.4-6.5) K/uL Lymph # (Auto) 0.76 L (1.2-3.4) K/uL [place] # (Auto) 0.74 H (0.11-0.59) K/uL Eos # (Auto) 0.19 (0-0.5) K/uL Baso # (Auto) 0.01 (0-0.2) K/uL Immature Gran # (Auto) 0.08 H (0.00-0.02) K/uL Giant Platelets 1+ Ovalocytes 1+ PT 11.6 (9.0-12.0) Seconds INR 1.1 (0.9-1.1) APTT 30.6 (21.0-31.0) Seconds PTT Ratio 1.1 Sodium 132 L (136-145) mmol/L Potassium 3.5 (3.5-5.1) mmol/L Chloride 97 L (98-107) mmol/L Carbon Dioxide 23 (21-32) mmol/L Anion Gap 11.0 (3-11) BUN 13 (7-18) mg/dl Creatinine 0.77 (0.6-1.4) mg/dl Est Cr Clr Drug Dosing 99.1 ml/min Est GFR ( Amer) 113.5 Est GFR (Non-Af Amer) 97.9 BUN/Creatinine Ratio 17.2 (10-20) Glucose 130 H (70-99) mg/dl Lactate (0.4-2.0) mmol/L Calcium 8.9 (8.5-10.1) mg/dl Magnesium 1.7 L (1.8-2.4) mg/dl Total Bilirubin 0.7 (0.2-1) mg/dl AST 17 (15-37) U/L ALT 18 (12-78) U/L Alkaline Phosphatase 197 H (45-117) U/L Troponin I < 0.015 (0-0.045) ng/ml Total Protein 5.8 L (6.4-8.2) gm/dl Albumin 2.3 L (3.4-5.0) gm/dl Globulin 3.5 (2.5-4.0) gm/dl Albumin/Globulin Ratio 0.7 L (0.9-2) TSH 1.540 (0.300-4.500) uIu/ml 04/01/20 Range/Units 21:15 WBC (4.8-10.8) K/uL RBC (4.7-6.1) M/uL Hgb (14.0-18.0) g/dL Hct (42-52) % MCV (80-100) fL MCH (25-34) pg MCHC (32-36) g/dL RDW Std Deviation (36.4-46.3) fL RDW Coeff of Ivette (11.5-14.5) % Plt Count (130-400) K/uL MPV (7.4-10.4) fL Immature Gran % (Auto) % Neut % (Auto) % Lymph % (Auto) % [place] % (Auto) % Eos % (Auto) % Baso % (Auto) % Neut # (Auto) (1.4-6.5) K/uL Lymph # (Auto) (1.2-3.4) K/uL [place] # (Auto) (0.11-0.59) K/uL Eos # (Auto) (0-0.5) K/uL Baso # (Auto) (0-0.2) K/uL Immature Gran # (Auto) (0.00-0.02) K/uL Giant Platelets Ovalocytes PT (9.0-12.0) Seconds INR (0.9-1.1) APTT (21.0-31.0) Seconds PTT Ratio Sodium (136-145) mmol/L Potassium (3.5-5.1) mmol/L Chloride (98-107) mmol/L Carbon Dioxide (21-32) mmol/L Anion Gap (3-11) BUN (7-18) mg/dl Creatinine (0.6-1.4) mg/dl Est Cr Clr Drug Dosing ml/min Est GFR ( Amer) Est GFR (Non-Af Amer) BUN/Creatinine Ratio (10-20) Glucose (70-99) mg/dl Lactate 1.0 (0.4-2.0) mmol/L Calcium (8.5-10.1) mg/dl Magnesium (1.8-2.4) mg/dl Total Bilirubin (0.2-1) mg/dl AST (15-37) U/L ALT (12-78) U/L Alkaline Phosphatase (45-117) U/L Troponin I (0-0.045) ng/ml Total Protein (6.4-8.2) gm/dl Albumin (3.4-5.0) gm/dl Globulin (2.5-4.0) gm/dl Albumin/Globulin Ratio (0.9-2) TSH (0.300-4.500) uIu/ml Administered Medications Lactated Ringer's (Lr) 1,000 mls @ 999 mls/hr IV .Q1H1M STA Stop: 04/02/20 00:10 Last Admin: 04/01/20 23:23 Dose: 999 mls/hr Documented by: [id number] Discontinued Medications Sodium Chloride (Nss 1000ml) 1,000 mls @ 999 mls/hr IV .Q1H1M LUIS Stop: 04/01/20 22:00 Last Infusion: 04/01/20 22:28 Dose: 0 mls/hr Documented by: [id number] Admin: 04/01/20 21:25 Dose: 999 mls/hr Documented by: [id number] Magnesium Sulfate/Dextrose (Magnesium Sulfate / D5w) 1 gm in 100 mls @ 100 mls/hr IV NOW STA Stop: 04/01/20 23:18 Last Infusion: 04/01/20 23:25 Dose: 0 mls/hr Documented by: [id number] Admin: 04/01/20 22:25 Dose: 100 mls/hr Documented by: [id number] Ondansetron HCl (Ondansetron Inj 2 Mg/Ml 2 Ml Vial) 4 mg IV NOW STA Stop: 04/01/20 20:53 Last Admin: 04/01/20 21:26 Dose: 4 mg Documented by: [id number] Imaging Data Attestation: I personally reviewed and interpreted this imaging study as follo ws: My Impression: Chest x-ray: There is no pneumonia, pneumothorax or mediastinal widening. The lungs appear clear. Radiologist's Impression: Brain CT: There is no acute intracranial hemorrhage, mass-effect or midline shift. There was no hydrocephalus. Blood Pressure Blood Pressure Findings: Low blood pressure Blood Pressure Disposition: further management by hospitalist Discharge Plan Visit Data Chief Complaint: Illness Stated Complaint: ILLNESS,LOSS OF APPETITE ED Provider: Alton Landaevrde Discharge Problem: Hypotension, Weakness, Acute dehydration, Diarrhea, Anemia, Hypomagnesemia Patient Disposition: Admitted As Inpatient Condition: Fair Forms Stand Alone Forms: My [facility] Prescriptions Prescriptions: No Action pioglitazone [Actos] 30 mg Tablet 30 mg PO QAM RF: 0 acetaminophen [Tylenol Extra Strength] 500 mg Tablet 500 mg PO Q6H PRN (Reason: Pain) RF: 0 Avastin 25 mg/mL Solution 0 mg IV UD RF: 0 ondansetron HCl [Zofran] 8 mg tablet 8 mg PO Q8H PRN (Reason: nausea and vomiting) 30 Days Qty: 90 RF: 3 Jardiance 10 mg tablet 10 mg PO QAM RF: 0 prochlorperazine maleate [Compazine] 10 mg tablet 10 mg PO Q6H RF: 0 oxycodone-acetaminophen 5-325 mg Tablet 1 tab PO Q6 PRN (Reason: Pain) RF: 0 ferrous sulfate 325 mg (65 mg iron) Tablet 325 mg PO Q2D RF: 0 diphenoxylate-atropine 2.5-0.025 mg tablet 1 tab PO QID PRN (Reason: Diarrhea) RF: 0 hyoscyamine sulfate [Levsin] 0.125 mg tablet 0.125 mg PO Q6H PRN (Reason: CRAMPING) RF: 0 cyanocobalamin (vitamin B-12) [Vitamin B-12] 500 mcg Tablet 500 mcg PO QAM RF: 0 morphine 15 mg tablet extended release 15 mg PO Q12H RF: 0 potassium chloride [Klor-Con M10] 10 mEq tablet,ER particles/crystals 10 meq PO BID RF: 0 omeprazole 20 mg Tablet,Delayed Release (Dr/Ec) 20 mg PO QAM RF: 0 irinotecan 40 mg/2 mL Solution 0 mg IV UD RF: 0 Referrals Referrals: Duong Matt MD [Primary Care Provider] - Discharge Problem: Hypotension Qualifiers: Hypotension type: unspecified hypotension type Qualified Code(s): I95.9 - Hypotension, unspecified Diarrhea Qualifiers: Diarrhea type: unspecified type Qualified Code(s): R19.7 - Diarrhea, unspec ified Anemia Qualifiers: Anemia type: unspecified type Qualified Code(s): D64.9 - Anemia, unspecified
[2020-04-01] MEDS ORDERED: SODIUM CHLORIDE 0.9% 1000ML 1,000 ML IV SCH (21:00)
[2020-04-01 21:28] LABS: Hematocrit (blood only) 29.3 % (42-52); Hemoglobin 9.4 g/dL (14.0-18.0); Mean Corpuscular Hemoglobin 29.7 pg (25-34); Mean Corpuscular Hgb Conc 32.1 g/dL (32-36); Mean Corpuscular Volume 92.7 fL (80-100); RDW Coefficient of Variation 18.6 % (11.5-14.5); RDW Standard Deviation 61.9 fL (36.4-46.3); Red Blood Count 3.16 M/uL (4.7-6.1); White Blood Count 3.29 K/uL (4.8-10.8)
[2020-04-01 21:33] LABS: Mean Platelet Volume 9.2 fL (7.4-10.4); Platelet Count 91 K/uL (130-400)
[2020-04-01 21:39] LABS: INR 1.1 (0.9-1.1); Partial Thromboplastin Ratio 1.1; Partial Thromboplastin Time 30.6 Seconds (21.0-31.0); Prothrombin Time 11.6 Seconds (9.0-12.0)
[2020-04-01 21:47] LABS: Alanine Aminotransferase 18 U/L (12-78); Albumin Level 2.3 gm/dl (3.4-5.0); Aspartate Aminotransferase 17 U/L (15-37); BUN Creatinine Ratio 17.2 (10-20); Blood Urea Nitrogen 13 mg/dl (7-18); Calcium 8.9 mg/dl (8.5-10.1); Carbon Dioxide 23 mmol/L (21-32); Chloride 97 mmol/L (98-107); Creatinine Clr Calc Pharmacy 99.1 ml/min; Est GFR (African American) 113.5; Est GFR (Non-African American) 97.9; Glucose 130 mg/dl (70-99); Magnesium 1.7 mg/dl (1.8-2.4); Potassium 3.5 mmol/L (3.5-5.1); Sodium 132 mmol/L (136-145)
[2020-04-01 21:48] LABS: Basophils # (auto) 0.01 K/uL (0-0.2); Basophils % (auto) 0.3 %; Eosinophils # (auto) 0.19 K/uL (0-0.5); Eosinophils % (auto) 5.8 %; Giant Platelets 1+; Immature Granulocytes # (auto) 0.08 K/uL (0.00-0.02); Immature Granulocytes % (auto) 2.4 %; Lymphocytes # (auto) 0.76 K/uL (1.2-3.4); Lymphocytes % (auto) 23.1 %; Monocytes # (auto) 0.74 K/uL (0.11-0.59); Monocytes % (auto) 22.5 %; Neutrophils # (auto) 1.51 K/uL (1.4-6.5); Neutrophils % (auto) 45.9 %; Ovalocytes 1+
[2020-04-01 21:57] LABS: Albumin Globulin Ratio 0.7 (0.9-2); Alkaline Phosphatase 197 U/L (45-117); Bilirubin,Total 0.7 mg/dl (0.2-1); Globulin 3.5 gm/dl (2.5-4.0); Total Protein 5.8 gm/dl (6.4-8.2); Troponin I < 0.015 ng/ml (0-0.045)
[2020-04-01] MEDS ORDERED: MAGNESIUM SULFATE / D5W 1 GM/100 ML BAG IV STA (22:19)
[2020-04-01] MEDS ORDERED: LACTATED RINGER'S 1,000 ML IV STA (23:10)
[2020-04-01] MEDS ORDERED: FAMOTIDINE 20MG/5ML IV PUSH IV STA (23:11)
[2020-04-01] MEDS ORDERED: POTASSIUM CHLORIDE 40 MEQ in SODIUM CHLORIDE 0.9% 1000ML 1,000 ML IV STA (23:17)
--- NOTE | 2020-04-02 00:26 | History & Physical Report ---
Date of Service April 02, 2020 Assessment & Plan (1) Encephalopathy: Likely secondary to hypotension secondary to hypovolemia secondary to diarrhea likely secondary to chemotherapy (rule out recurrent C. 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 RE headache in the setting of metastatic malignancy Check stool C. difficile Antidiarrheals as needed once infectious causes of diarrhea ruled out. Transfuse PRBC if hemoglobin less than 7 and or for symptomatic anemia. Outpatient ENT evaluation for dysphonia. ISS BG goal [id number] PT OT eval May benefit from Palliative care consultation to discuss goals of care during confinement pending work-up results and discussion with patient oncologist. DVT prophylaxis. SCDs RE thrombocytopenia, occult GI bleed Full code Text document was generated using [employer] voice recognition software. It may contain grammatical or spelling errors. Kindly contact undersigned for clarification of any documentation item in question. History of Present Illness Chief Complaint: Weakness, diarrhea Primary Care Provider: Duong Matt MD History obtained from patient and records. Medical history significant for metastatic colon cancer status post surgery ongoing chemotherapy, DM 2 on oral meds, hyperlipidemia, urolithiasis, chronic pancytopenia (baseline hemoglobin 10-11), history C. difficile/Salmonella infection status post treatment as per records, past tobacco abuse. Last confinement August 2019 for colitis attributed to chemotherapy. Hoarseness noted about 3 months ago as per patient. PET scan from December 2019 showed FDG avid mediastinal and bilateral hilar lymph nodes, retroperitoneal and right retrocrural lymphadenopathy compatible with metastatic disease. Liver heterogeneity could be physiologic however small areas of metastatic disease cannot be excluded. Enlarging pulmonary nodules particularly on the left concerning for metastatic disease. Patient chemotherapy cycle started 10 days ago after outpatient discussion with [facility] oncologist almost 3 weeks ago. Loose stools about 5 times a day, nonbloody as per patient. No fever, no chills, no abdominal pain. " What ever I eat comes out," as per patient. Increasing generalized weakness at home, poor appetite. Achy headache symptoms as per patient. Confusion as per family. Patient brought to the ER for evaluation. Initial SBP at the ER 80 to 90s. Patient stool noted to be dark brown and weakly heme positive as per ER provider. 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 Allergies Allergy/AdvReac Type Severity Reaction Status Date / Time No Known Allergies Allergy Verified 04/01/20 21:57 Home Medications Home Medications Medication Instructions Recorded Confirmed Type pioglitazone [Actos] 30 mg PO QAM 04/18/18 04/01/20 History ferrous sulfate 325 mg PO Q2D 10/02/18 04/01/20 History Avastin 0 mg IV UD 08/13/19 04/01/20 History acetaminophen [Tylenol Extra 500 mg PO Q6H PRN 08/13/19 04/01/20 History Strength] ondansetron HCl [Zofran] 8 mg PO Q8H PRN 30 Days #90 tab 08/16/19 04/01/20 Rx Jardiance 10 mg PO QAM 08/31/19 04/01/20 History oxycodone-acetaminophen 1 tab PO Q6 PRN 12/27/19 04/01/20 History prochlorperazine maleate 10 mg PO Q6H 12/27/19 04/01/20 History [Compazine] cyanocobalamin (vitamin B-12) 500 mcg PO QAM 02/11/20 04/01/20 History [Vitamin B-12] diphenoxylate-atropine 1 tab PO QID PRN 02/11/20 04/01/20 History hyoscyamine sulfate [Levsin] 0.125 mg PO Q6H PRN 02/11/20 04/01/20 History irinotecan 0 mg IV UD 04/01/20 04/01/20 History morphine 15 mg PO Q12H 04/01/20 04/01/20 History omeprazole 20 mg PO QAM 04/01/20 04/01/20 History potassium chloride [Klor-Con M10] 10 meq PO BID 04/01/20 04/01/20 History Past Med/Surg History Medical History Anxiety C. difficile colitis hx ~2018. 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 Depression Diverticulitis of colon with perforation NO SURGERY DM type 2 (diabetes mellitus, type 2) Dyslipidemia Immunocompromised Kidney stones Obesity Osteoarthritis Pancytopenia Follows with heme Splenomegaly r/t chemotherapy Surgical History History of colonoscopy History of cystoscopy STONE REMOVAL WITH STENT PLACED History of esophagogastroduodenoscopy (EGD) History of tooth extraction History of vascular access device RIGHT UPPER CHEST PLACED 09/2018 Hx of hernia repair Hx of tonsillectomy Family History Mother , Age 62 Breast cancer Father , Age 62 Stroke Sister Family history of diabetes mellitus Brother Family history of diabetes mellitus Brother Family history of diabetes mellitus Other No family history of adverse response to anesthesia Social History Smoking Status: Former smoker Tobacco Type: Cigarettes Smoking End Date: 10-20 yrs ago per pt; Do You Dip or Chew Tobacco: No; Tobacco Cessation Education Requested by Patient: No Hx Alcohol Use: No Hx Substance Use: No Preferred Language: Upper Sorbian Communication Ability: Effective Visual Impairment: No Limitations Envelope Sealer Required: No Beliefs That Will Affect Care: None Current Living Situation: Spouse and Family Other Information That Helps Us Care for You: No Feels Safe at Home: Yes Safety Concerns: Feels Safe At This Time Assistive Devices: Glasses Review of Systems Review of Systems: As per HPI, all 10 systems reviewed, all other ROS negative Physical Exam Physical Exam: GENERAL: Wane, chronically ill, dysphonic, no respiratory distress SKIN: Pallor , warm HEENT: Alopecia, pale palpebral conjunctivae, no ptosis, dry buccal mucosa NECK : Supple, no tenderness CHEST : CTA, no tenderness HEART : RRR, no obvious murmurs ABDOMEN: Some distention, nontender EXTREMITIES : No LE swelling/tenderness, no other conspicuous deformities noted NEUROLOGIC : Coherent, no facial asymmetry, dysphonia, no other gross focality Results & Data Results & Data ([facility]) Vital Signs (Past 12 Hours) Vital Signs Temp Pulse Resp BP Pulse Ox 04/02/20 00:00 70 16 91/53 L 95 04/01/20 23:34 75 18 91/59 L 97 04/01/20 23:08 75 16 83/58 L 95 04/01/20 23:00 75 16 84/53 L 95 04/01/20 22:33 81 16 106/68 98 04/01/20 22:07 79 18 92/60 L 97 04/01/20 21:30 81 18 90/59 L 94 04/01/20 21:23 94 04/01/20 21:01 86 20 95/63 L 95 04/01/20 20:33 36.7 C 105 H 18 93/64 L 97 Laboratory Results Laboratory Results WBC 3.29 K/uL (4.8-10.8) L 04/01/20 21:15 RBC 3.16 M/uL (4.7-6.1) L 04/01/20 21:15 Hgb 9.4 g/dL (14.0-18.0) L 04/01/20 21:15 Hct 29.3 % (42-52) L 04/01/20 21:15 MCV 92.7 fL (80-100) 04/01/20 21:15 MCH 29.7 pg (25-34) 04/01/20 21:15 MCHC 32.1 g/dL (32-36) 04/01/20 21:15 RDW Std Deviation 61.9 fL (36.4-46.3) H 04/01/20 21:15 RDW Coeff of Ivette 18.6 % (11.5-14.5) H 04/01/20 21:15 Plt Count 91 K/uL (130-400) L 04/01/20 21:15 MPV 9.2 fL (7.4-10.4) 04/01/20 21:15 Immature Gran % (Auto) 2.4 % 04/01/20 21:15 Neut % (Auto) 45.9 % 04/01/20 21:15 Lymph % (Auto) 23.1 % 04/01/20 21:15 Giles % (Auto) 22.5 % 04/01/20 21:15 Eos % (Auto) 5.8 % 04/01/20 21:15 Baso % (Auto) 0.3 % 04/01/20 21:15 Neut # (Auto) 1.51 K/uL (1.4-6.5) 04/01/20 21:15 Lymph # (Auto) 0.76 K/uL (1.2-3.4) L 04/01/20 21:15 Giles # (Auto) 0.74 K/uL (0.11-0.59) H 04/01/20 21:15 Eos # (Auto) 0.19 K/uL (0-0.5) 04/01/20 21:15 Baso # (Auto) 0.01 K/uL (0-0.2) 04/01/20 21:15 Immature Gran # (Auto) 0.08 K/uL (0.00-0.02) H 04/01/20 21:15 Giant Platelets 1+ 04/01/20 21:15 Ovalocytes 1+ 04/01/20 21:15 PT 11.6 Seconds (9.0-12.0) 04/01/20 21:15 INR 1.1 (0.9-1.1) 04/01/20 21:15 APTT 30.6 Seconds (21.0-31.0) 04/01/20 21:15 PTT Ratio 1.1 04/01/20 21:15 Sodium 132 mmol/L (136-145) L 04/01/20 21:15 Potassium 3.5 mmol/L (3.5-5.1) 04/01/20 21:15 Chloride 97 mmol/L (98-107) L 04/01/20 21:15 Carbon Dioxide 23 mmol/L (21-32) 04/01/20 21:15 Anion Gap 11.0 (3-11) 04/01/20 21:15 BUN 13 mg/dl (7-18) 04/01/20 21:15 Creatinine 0.77 mg/dl (0.6-1.4) 04/01/20 21:15 Est Cr Clr Drug Dosing 99.1 ml/min 04/01/20 21:15 Est GFR ( Amer) 113.5 04/01/20 21:15 Est GFR (Non-Af Amer) 97.9 04/01/20 21:15 BUN/Creatinine Ratio 17.2 (10-20) 04/01/20 21:15 Glucose 130 mg/dl (70-99) H 04/01/20 21:15 Lactate 1.0 mmol/L (0.4-2.0) 04/01/20 21:15 Calcium 8.9 mg/dl (8.5-10.1) 04/01/20 21:15 Magnesium 1.7 mg/dl (1.8-2.4) L 04/01/20 21:15 Total Bilirubin 0.7 mg/dl (0.2-1) 04/01/20 21:15 AST 17 U/L (15-37) 04/01/20 21:15 ALT 18 U/L (12-78) 04/01/20 21:15 Alkaline Phosphatase 197 U/L (45-117) H 04/01/20 21:15 Troponin I < 0.015 ng/ml (0-0.045) 04/01/20 21:15 Total Protein 5.8 gm/dl (6.4-8.2) L 04/01/20 21:15 Albumin 2.3 gm/dl (3.4-5.0) L 04/01/20 21:15 Globulin 3.5 gm/dl (2.5-4.0) 04/01/20 21:15 Albumin/Globulin Ratio 0.7 (0.9-2) L 04/01/20 21:15 TSH 1.540 uIu/ml (0.300-4.500) 04/01/20 21:15 FOBT as per ER provider was positive Diagnostic Findings CT head initial read: No acute intracranial hemorrhage, mass-effect, midline shift, hydrocephalus or acute infarct. Chest x-ray as per my interpretation atelectasis EKG as per my interpretation : Rate 85, NSR, LAD, LAFB, no ischemia
[2020-04-02 00:43] LABS: Hematocrit (blood only) 24.9 % (42-52); Hemoglobin 8.1 g/dL (14.0-18.0); Reticulocyte % 2.6 % (0.5-2.0); Reticulocytes # 0.07 10^6/uL (0.02-0.10)
[2020-04-02 01:06] LABS: Ferritin 609.8 ng/ml (8-388)
[2020-04-02 01:12] LABS: Folate (Folic Acid) 9.72 ng/ml (>5.38); Vitamin B12 > 2000 pg/ml (211-911)
[2020-04-02] MEDS ORDERED: ACETAMINOPHEN 325 MG TAB PO PRN (02:02)
[2020-04-02] MEDS ORDERED: GLUCOSE 10 TABS/TUBE PO PRN (02:02)
[2020-04-02] MEDS ORDERED: DEXTROSE 50% 50 ML SYRINGE IV PRN (02:02)
[2020-04-02] MEDS ORDERED: GLUCAGON FOR INJ 1 MG VIAL SQ PRN (02:02)
[2020-04-02] MEDS ORDERED: GLUCOSE 40% GEL 15 GM TUBE PO PRN (02:02)
[2020-04-02] MEDS ORDERED: OXYCODONE HCL IR 5 MG TAB (IMMEDIATE RELEASE) PO PRN (02:02)
[2020-04-02] MEDS ORDERED: PROMETHAZINE HCL 12.5 MG in SODIUM CHLORIDE 0.9% 50 ML IV PRN (02:02)
[2020-04-02] MEDS ORDERED: CARBOHYDRATES FOR HYPOGLYCEMIA PO PRN (02:02)
[2020-04-02] MEDS: INSULIN ASPART 100 UNITS/ML 3 ML PEN SC SCH ×5 (03:00→21:05)
[2020-04-02 03:57] LABS: Appearance Urine Clear (Clear); Bilirubin Urine Negative (Negative); Blood Urine Negative (Negative); Color Urine Yellow; Glucose Urine UA 3+ (Negative); Ketones Urine Trace (Negative); Leukocyte Esterase Urine Negative (Negative); Nitrite Urine Negative (Negative); Protein Urine Negative (Negative); Specific Gravity Urine 1.022 (1.000-1.030); Urobilinogen Urine Negative (Negative); pH Urine 5.5 (4.5-7.5)
[2020-04-02] MEDS ORDERED: LOPERAMIDE HCL 2 MG CAP PO PRN ×2 (04:48→15:39)
[2020-04-02 07:06] LABS: Hematocrit (blood only) 27.1 % (42-52); Hemoglobin 8.7 g/dL (14.0-18.0); Mean Corpuscular Hemoglobin 29.9 pg (25-34); Mean Corpuscular Hgb Conc 32.1 g/dL (32-36); Mean Corpuscular Volume 93.1 fL (80-100); RDW Standard Deviation 64.7 fL (36.4-46.3); Red Blood Count 2.91 M/uL (4.7-6.1); White Blood Count 3.09 K/uL (4.8-10.8)
[2020-04-02 07:20] LABS: Calcium 8.3 mg/dl (8.5-10.1); Creatinine Clr Calc Pharmacy 145.6 ml/min; Est GFR (African American) 132.4; Est GFR (Non-African American) 114.2; Magnesium 1.9 mg/dl (1.8-2.4); Potassium 4.2 mmol/L (3.5-5.1)
[2020-04-02 07:33] LABS: Platelet Count 86 K/uL (130-400)
[2020-04-02 07:35] LABS: Echinocytes 1+; Eosinophils # (auto) 0.22 K/uL (0-0.5); Eosinophils % (auto) 7.1 %; Immature Granulocytes # (auto) 0.04 K/uL (0.00-0.02); Immature Granulocytes % (auto) 1.3 %; Lymphocytes # (auto) 1.01 K/uL (1.2-3.4); Lymphocytes % (auto) 32.7 %; Monocytes % (auto) 19.4 %; Neutrophils # (auto) 1.22 K/uL (1.4-6.5); Neutrophils % (auto) 39.5 %; Toxic Granulation 1+
[2020-04-02] MEDS: POTASSIUM CHLORIDE 10 MEQ TABCR PO SCH ×2 (08:13→17:18)
[2020-04-02] MEDS: CYANOCOBALAMIN 500 MCG TABLET (VITAMIN B-12) PO SCH (08:13)
[2020-04-02] MEDS: PANTOprazole 40 MG TAB PO SCH (08:13)
[2020-04-02] MEDS: MoRPHine SULFATE CR 15 MG TABCR PO SCH ×2 (08:15→21:07)
--- NOTE | 2020-04-02 08:43 | CT Scan Report ---
CT head/brain wo con CLINICAL HISTORY: 59 years-old Male with confusion. Acutely altered mental status in a patient with history of colorectal carcinoma TECHNIQUE: Multiple axial CT images of the head were obtained without contrast. A dose lowering tech nique was utilized adhering to the principles of ALARA. CT DOSE: 537.48 mGy.cm COMPARISON: None. FINDINGS: No acute intracranial hemorrhage, midline shift, intracranial mass, hydrocephalus, territorial ischem ia or abnormal extra-axial collection. The calvarium is intact. The paranasal sinuses, mastoid air cells, and middle ear cavities are clear . IMPRESSION: No acute intracranial abnormality. ACT 112: Negative or not required by law. The above report was generated using voice recognition software. It may contain grammatical, syntax o r spelling errors. Electronically signed by: Nahum Higgins M.D. 04/02/2020 8:42 AM
--- NOTE | 2020-04-02 08:46 | XRay Report ---
XR chest 1V portable HISTORY: 59 years-old Male weakness acute weakness COMPARISON: Chest radiograph 02/11/2020 TECHNIQUE: Semierect portable AP view of the chest FINDINGS: Cardiomediastinal and hilar silhouettes are unchanged. Left subclavian Pjrfyf-j-[id number] catheter appears stable. Calcified plaque of the thoracic aortic arch. No pneumothorax, pleural effusion, airspace co nsolidation or overt pulmonary edema. Minimal retrocardiac opacities. Degenerative changes of the marta ulders and spine. IMPRESSION: Minimal retrocardiac opacities favor atelectasis. Pneumonitis considered less likely. ACT 112: Negative or not required by law. The above report was generated using voice recognition software. It may contain grammatical, syntax o r spelling errors. Electronically signed by: Nahum Higgins M.D. 04/02/2020 8:45 AM
--- NOTE | 2020-04-02 11:33 | Electrocardiogram Report ---
Test Reason : Blood Pressure : / mmHG Vent. Rate : 085 BPM Atrial Rate : 085 BPM P-R Int : 156 ms QRS Dur : 082 ms QT Int : 374 ms P-R-T Axes : -09 -23 056 degrees QTc Int : 445 ms Normal sinus rhythm Anteroseptal infarct (cited on or before 01-APR-2020) Abnormal ECG When compared with ECG of 11-FEB-2020 20:47, No significant change was found Confirmed by George Bergeron ([id number]) on 04/02/2020 11:33:13 AM Referred By: REFERRED SELF Confirmed By:George Bergeron
[2020-04-02] MEDS: LACTATED RINGER'S 1,000 ML IV SCH ×2 (13:47→21:08)
--- NOTE | 2020-04-02 15:02 | Hospitalist Progress Note ---
Date of Service April 02, 2020 Assessment & Plan (1) Encephalopathy: Encephalopathy Patient reports Confusion intermittently Unclear etiology DD: R/O Brain mets, Infection, Chemotherapy, Hyponatremia, Hypotension Most likely due to chemotherapy--Irinotecan CT head: No acute intracranial abnormality. Normal B12, TSH and Ammonia levels Hyponatremia improving with IV Fluids Brain MRI pending Monitor sodium levels Consider Neurology eval if needed Pancytopenia Likely due to chemotherapy No indication for transfusion currently Monitor CBC daily Diarrhea Dehydration Likely secondary to chemotherapy Renal function is stable Stool for C diff: Negative Continue hydration with IV fluids Consider Imaging if no improvement Dysphonia Likely due to Avastin/Mets Denies dysphagia Consider ENT eval as outpatient Monitor Stage IV Colon Adenocarcinoma KRAS positive, NRAS negative BRAF negative. Therapy with Avastin, Irinotecan Follows with [facility] Oncology, Dr.Nilesh Meraz Palliative Care to address goals of care DM II Last HbA1C: 6.10 February 2020 Continue Insulin therapy while hospitalized Monitor BGs DVT Px SCDs RE Thrombocytopenia, Anemia Code Status Full code Disposition PT/OT prior to discharge Admission and Anticipated Discharge Date Admission Date: April 02, 2020 Subjective Patient is seen and examined at bedside States feeling anxious secondary to intermittent confusion No diarrhea today States having mild nonproductive cough Feels dehydrated Reports poor appetite Denies chest pain, shortness of breath, dizziness, nausea, abdominal pain MRI brain pending Review of Systems Review of Systems: All systems reviewed & are unremarkable except as noted in HPI & below Physical Exam Physical Exam: Physical Exam: Vitals signs as noted above General Appearance:Moderately built and nourished, no apparent distress, chronic ill appearing Head: normocephalic, Atraumatic, +dysphonic, +Dry oral mucosa Eyes: normal inspection, EOMI Neck: supple, Trachea midline Respiratory/Chest: Normal breath sounds, CTA Cardiovascular: S1, S2, No murmur Abdomen/GI:Soft, Mild B/L LE tender, Bowel sounds present Extremities/Musculoskelatal:normal inspection, Trace edema Neurologic/Psych:Alert, awake, Oriented to person and place, grossly no focal neurological deficits Skin: normal color, warm Results & Data Results & Data ([facility]) Vital Signs (Past 12 Hours) Vital Signs Temp Pulse Resp BP Pulse Ox 04/02/20 11:31 36.5 C 77 19 94/58 L 97 04/02/20 07:53 36.7 C 80 18 96/60 L 97 04/02/20 03:46 37.0 C 97 H 18 106/69 98 Laboratory Results Short CBC 04/01/20 04/02/20 04/02/20 Range/Units 21:15 00:34 06:48 WBC 3.29 L 3.09 L (4.8-10.8) K/uL Hgb 9.4 L 8.1 L 8.7 L (14.0-18.0) g/dL Hct 29.3 L 24.9 L 27.1 L (42-52) % Plt Count 91 L 86 L (130-400) K/uL BMP 04/01/20 04/02/20 21:15 06:47 Sodium 132 L 134 L Potassium 3.5 4.2 D Chloride 97 L 102 Carbon Dioxide 23 22 BUN 13 10 Creatinine 0.77 0.53 L Glucose 130 H 98 Calcium 8.9 8.3 L Cardiac Enzymes 04/01/20 Range/Units 21:15 Troponin I < 0.015 (0-0.045) ng/ml Liver Function 04/01/20 Range/Units 21:15 Total Bilirubin 0.7 (0.2-1) mg/dl AST 17 (15-37) U/L ALT 18 (12-78) U/L Alkaline Phosphatase 197 H (45-117) U/L Albumin 2.3 L (3.4-5.0) gm/dl Urine 04/02/20 Range/Units 03:30 Urine Color Yellow Urine Appearance Clear (Clear) Urine pH 5.5 (4.5-7.5) Ur Specific Riva 1.022 (1.000-1.030) Urine Protein Negative (Negative) Urine Glucose (UA) 3+ H (Negative)
[2020-04-02] MEDS ORDERED: GADOBUTROL 65ML VIAL IV ONE (16:53)
--- NOTE | 2020-04-02 17:05 | Magnetic Resonance Report ---
MRI OF THE BRAIN WITHOUT AND WITH IV CONTRAST CLINICAL HISTORY: Headache. Altered mental status. History of colon cancer. COMPARISON STUDY: Head CT April 01, 2020. TECHNIQUE: Utilizing a 1.5 Kayleen magnet and dedicated coil, multiplanar, multiecho imaging of the br ain was performed pre and postcontrast administration. IV administration of 8 mL of Gadavist contras t was uneventful. Thin cut T1 post contrast imaging with multiplanar reconstructions was performed. FINDINGS: There are no foci of restricted diffusion to suggest acute infarct. No acute intracranial h emorrhage, midline shift or mass effect is present. Brain volume is normal for age. Ventricular syste m is normal. The basilar cisterns are patent. There are no extra-axial collections. Flow-voids for th e major intracranial vessels are present. There is no intracranial mass or pathologic enhancement. Nu merous small white matter T2 hyperintense foci suggest small vessel disease. Calvarial signal is norm al. Orbits are unremarkable. There is no fluid within the sinuses or mastoid air cells. IMPRESSION: 1. No acute intracranial findings. 2. No evidence of metastatic disease. 3. Numerous white matter T2 hyperintense foci suggestive of moderate small vessel disease. ACT 112: Negative or not required by law. Electronically signed by: Manolo Amaral M.D. 04/02/2020 5:04 PM
[2020-04-03 06:15] LABS: Hematocrit (blood only) 25.6 % (42-52); Hemoglobin 8.3 g/dL (14.0-18.0); Mean Corpuscular Hemoglobin 30.4 pg (25-34); Mean Corpuscular Hgb Conc 32.4 g/dL (32-36); Mean Corpuscular Volume 93.8 fL (80-100); RDW Coefficient of Variation 18.9 % (11.5-14.5); RDW Standard Deviation 64.6 fL (36.4-46.3); Red Blood Count 2.73 M/uL (4.7-6.1); White Blood Count 2.47 K/uL (4.8-10.8)
[2020-04-03 06:26] LABS: Mean Platelet Volume 8.8 fL (7.4-10.4); Platelet Count 74 K/uL (130-400)
[2020-04-03 06:42] LABS: BUN Creatinine Ratio 13.2 (10-20); Calcium 8.5 mg/dl (8.5-10.1); Creatinine Clr Calc Pharmacy 192.9 ml/min; Est GFR (African American) 148.6; Est GFR (Non-African American) 128.2; Magnesium 1.8 mg/dl (1.8-2.4); Potassium 3.6 mmol/L (3.5-5.1)
[2020-04-03] MEDS: MoRPHine SULFATE CR 15 MG TABCR PO SCH ×2 (08:35→21:56)
[2020-04-03] MEDS: INSULIN ASPART 100 UNITS/ML 3 ML PEN SC SCH ×4 (08:35→22:39)
[2020-04-03] MEDS: PANTOprazole 40 MG TAB PO SCH (08:40)
[2020-04-03] MEDS: FERROUS SULFATE 325 MG TAB PO SCH (08:40)
[2020-04-03] MEDS: POTASSIUM CHLORIDE 10 MEQ TABCR PO SCH ×2 (08:40→17:28)
[2020-04-03] MEDS: CYANOCOBALAMIN 500 MCG TABLET (VITAMIN B-12) PO SCH (08:40)
--- NOTE | 2020-04-03 12:43 | Palliative Care Consultation ---
Date of Consultation April 03, 2020 Assessment & Plan (1) Goals of care, counseling/discussion: Pt is a 59 yo male with a PMH significant for stage IV Colon Ca - dx september 2018. He was found to have a large, partially obstructing mass in the descending colon. He was started on chemo and required dose adjustments due to pancytopenia. Pt reported he thinks he was due for chemo today. His Oncologist is Dr Meraz. Pt came to [facility] on 04/02 for dehydration and AMS. PMH is significant for anxiety/depression, h/o C diff in May, h/o diverticulitis, DM, HLD and TOB abuse. Of note, both his parents at age 62 - his mother with breast Ca and his father - CVA. - Goals of care - pt wishes to cont chemo and aggressive treatment at this time. - CODE STATUS - discussed full resuscitation in detail - pt does not want to be resuscitated given his current poor performance status and likelihood of not returning to his current level of functioning - he is agreeable to completing a POLST form. POLST form completed - POA is his daughter Asiya - ph [phone]. She is his only child . - Pt states his daughter is aware of his wishes - discussed how to discuss deeper details with her. Pt is , his , Katya , has MS and resides in a SNF - she is unable to walk. Pt's daughter lives with him and assists with his care. Daughter also works and he is home alone at times. - Pt is agreeable to short stay at rehab if needed. - Will cont to follow and assist pt with medical decision making PPS 40% (2) Encephalopathy: improved with hydration (3) Acute dehydration: improved (4) Weakness: may require PT at home or facility (5) Pancytopenia: further chemo per ONC (6) Colon cancer metastasized to intrathoracic lymph node: f/u with Onc History of Present Illness Reason for Consultation: Address Goals of Care and Code Status Requesting Physician: Dr Correa Attending Physician: Chino Correa MD History of Present Illness Pt seen and examined in room 217 - no family at bedside. pt is a fair historian. Pt is a 59 yo male with a PMH significant for stage IV Colon Ca - dx september 2018. He was found to have a large, partially obstructing mass in the descending colon. He was started on chemo and required dose adjustments due to panc ytopenia. Pt reported he thinks he was due for chemo today. His Oncologist is Dr Meraz. Pt came to [facility] on 04/02 for dehydration and AMS. PMH is significant for anxiety/depression, h/o C diff in May, h/o diverticulitis, DM, HLD and TOB abuse. Of note, both his parents at age 62 - his mother with breast Ca and his father - CVA. - Goals of care - pt wishes to cont chemo and aggressive treatment at this time. - CODE STATUS - discussed full resuscitation in detail - pt does not want to be resuscitated given his current poor performance status and likelihood of not returning to his current level of functioning - he is agreeable to completing a POLST form. POLST form completed - POA is his daughter Asiya - ph [phone]. She is his only child . - Pt states his daughter is aware of his wishes - discussed how to discuss deeper details with her. Pt is , his , Katya , has MS and resides in a SNF - she is unable to walk. Pt's daughter lives with him and assists with his care. Daughter also works and he is home alone at times. - Pt is agreeable to short stay at rehab if needed. PPS 40% Allergies Allergy/AdvReac Type Severity Reaction Status Date / Time No Known Allergies Allergy Verified 04/01/20 21:57 Home Medications Home Medications Medication Instructions Recorded Confirmed Type pioglitazone [Actos] 30 mg PO QAM 04/18/18 04/01/20 History ferrous sulfate 325 mg PO Q2D 10/02/18 04/01/20 History Avastin 0 mg IV UD 08/13/19 04/01/20 History acetaminophen [Tylenol Extra 500 mg PO Q6H PRN 08/13/19 04/01/20 History Strength] ondansetron HCl [Zofran] 8 mg PO Q8H PRN 30 Days #90 tab 08/16/19 04/01/20 Rx Jardiance 10 mg PO QAM 08/31/19 04/01/20 History oxycodone-acetaminophen 1 tab PO Q6 PRN 12/27/19 04/01/20 History prochlorperazine maleate 10 mg PO Q6H 12/27/19 04/01/20 History [Compazine] cyanocobalamin (vitamin B-12) 500 mcg PO QAM 02/11/20 04/01/20 History [Vitamin B-12] diphenoxylate-atropine 1 tab PO QID PRN 02/11/20 04/01/20 History hyoscyamine sulfate [Levsin] 0.125 mg PO Q6H PRN 02/11/20 04/01/20 History irinotecan 0 mg IV UD 04/01/20 04/01/20 History morphine 15 mg PO Q12H 04/01/20 04/01/20 History omeprazole 20 mg PO QAM 04/01/20 04/01/20 History potassium chloride [Klor-Con M10] 10 meq PO BID 04/01/20 04/01/20 History Patient History Medical History Anxiety C. difficile colitis hx ~2017. 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 Depression Diverticulitis of colon with perforation NO SURGERY DM type 2 (diabetes mellitus, type 2) Dyslipidemia Immunocompromised Kidney stones Obesity Osteoarthritis Pancytopenia Follows with heme Splenomegaly r/t chemotherapy Surgical History History of colonoscopy History of cystoscopy STONE REMOVAL WITH STENT PLACED History of esophagogastroduodenoscopy (EGD) History of tooth extraction History of vascular access device RIGHT UPPER CHEST PLACED 09/2018 Hx of hernia repair Hx of tonsillectomy Family History Mother , Age 62 Breast cancer Father , Age 62 Stroke Sister Family history of diabetes mellitus Brother Family history of diabetes mellitus Brother Family history of diabetes mellitus Other No family history of adverse response to anesthesia Social History Smoking Status: Former smoker Tobacco Type: Cigarettes Smoking End Date: 10-20 yrs ago per pt; Do You Dip or Chew Tobacco: No; Tobacco Cessation Education Requested by Patient: No Hx Alcohol Use: No Hx Substance Use: No Preferred Language: Welsh Communication Ability: Effective Visual Impairment: No Limitations Electroformer Required: No Beliefs That Will Affect Care: None Current Living Situation: Spouse and Family Other Information That Helps Us Care for You: No Feels Safe at Home: Yes Safety Concerns: Feels Safe At This Time Assistive Devices: None Review of Systems Review of Systems: Pt denies fever, CP , SOB or abd pain. No incont of bowel of bladder + for chills this am Physical Exam Physical Exam: Pt awake and alert, fatigued HEENT: EOMI, hearing WNL, dry MM Resp: unlabored, clear BS CV: RR , no edema Abd: soft, NT Ext: FROM, generalized weakness Skin: pale Neuro: A&O, voice soft and hard to hear Results & Data ([facility]) Vital Signs (Past 12 Hours) Vital Signs Temp Pulse Resp BP Pulse Ox 04/03/20 11:02 98.4 F 78 18 98/63 L 98 04/03/20 07:09 97.3 F L 72 18 97/63 L 98 04/03/20 03:16 98.2 F 70 18 95/61 L 97 PG Care Time/CCT Total # of Minutes Spent Total Time Spent with Patient: Total time spent 55 min with greater than 50% of time spent at bedside discussing goals of care and CODE STATUS and completing POLST form Coding Level of Care Code 07829 Inpt Consult Level 2 Diagnoses Goals of care, counseling/discussion Z71.89 Encephalopathy G93.40 Acute dehydration E86.0 Weakness R53.1 Pancytopenia D61.818 Colon cancer metastasized to intrathoracic lymph node C18.9; C77.1 Time Spent (min) 55
[2020-04-03] MEDS ORDERED: NSS + 20MEQ KCL 20 MEQ/1,000 ML BAG IV ONE (13:45)
--- NOTE | 2020-04-03 18:52 | Hospitalist Progress Note ---
Date of Service April 03, 2020 Assessment & Plan (1) Encephalopathy: Encephalopathy Patient reports Confusion intermittently Unclear etiology DD: R/O Brain mets, Infection, Chemotherapy, Hyponatremia, Hypotension Most likely due to chemotherapy--Irinotecan CT head: No acute intracranial abnormality. Normal B12, TSH and Ammonia levels Hyponatremia improving with IV Fluids Brain MRI: No acute intracranial findings. o evidence of metastatic disease. Numerous white matter T2 hyperintense foci suggestive of moderate small vessel disease. Sodium levels normalized Consider Neurology eval if needed No confusion today Pancytopenia Likely due to chemotherapy No indication for transfusion currently Monitor CBC daily Hemoglobin drop likely dilutional secondary to IV fluids No active bleeding issues Monitor Diarrhea Dehydration Likely secondary to chemotherapy Renal function is stable Stool for C diff: Negative Continue IV fluids Improving Imodium PRN Dysphonia Likely due to Avastin/Mets Denies dysphagia Consider ENT eval as outpatient Monitor Stage IV Colon Adenocarcinoma KRAS positive, NRAS negative BRAF negative. Therapy with Avastin, Irinotecan Follows with [facility], Dr.Nilesh Meraz Appreciate palliative care input POLST form on file. DM II Last HbA1C: 6.10 February 2020 Continue Insulin therapy while hospitalized Monitor BGs DVT Px SCDs RE Thrombocytopenia, Anemia Code Status DNI/DNR Disposition PT/OT prior to discharge Admission and Anticipated Discharge Date Admission Date: April 02, 2020 Subjective Patient is seen and examined at bedside Reports generalized weakness, intermittent lower abdominal pain No recurrence of confusion No other complaints Denies chest pain, shortness of breath, dizziness, nausea, abdominal pain Review of Systems Review of Systems: All systems reviewed & are unremarkable except as noted in HPI & below Physical Exam Physical Exam: Physical Exam: Vitals signs as noted above General Appearance:Moderately built and nourished, no apparent distress, chronic ill appearing Head: normocephalic, Atraumatic, +dysphonic Eyes: normal inspection, EOMI Neck: supple, Trachea midline Respiratory/Chest: Normal breath sounds, CTA Cardiovascular: S1, S2, No murmur Abdomen/GI:Soft, Non tender, Bowel sounds present Extremities/Musculoskelatal:normal inspection, Trace edema Neurologic/Psych:Alert, awake, Oriented to person and place, grossly no focal neurological deficits Skin: normal color, warm Results & Data Results & Data ([facility]) Vital Signs (Past 12 Hours) Vital Signs Temp Pulse Resp BP Pulse Ox 04/03/20 15:40 36.3 C L 82 16 95/63 L 97 04/03/20 11:02 36.9 C 78 18 98/63 L 98 04/03/20 07:09 36.3 C L 72 18 97/63 L 98 Laboratory Results Short CBC 04/03/20 Range/Units 05:57 WBC 2.47 L (4.8-10.8) K/uL Hgb 8.3 L (14.0-18.0) g/dL Hct 25.6 L (42-52) % Plt Count 74 L (130-400) K/uL BMP 04/03/20 05:57 Sodium 136 Potassium 3.6 Chloride 104 Carbon Dioxide 25 BUN 5 L D Creatinine 0.40 L Glucose 94 Calcium 8.5
[2020-04-04] MEDS ORDERED: LACTATED RINGER'S 1,000 ML IV ONE (03:43)
[2020-04-04 06:40] LABS: Hemoglobin 8.2 g/dL (14.0-18.0); Mean Corpuscular Hemoglobin 29.8 pg (25-34); Mean Corpuscular Hgb Conc 31.5 g/dL (32-36); Mean Corpuscular Volume 94.5 fL (80-100); RDW Coefficient of Variation 19.2 % (11.5-14.5); RDW Standard Deviation 65.3 fL (36.4-46.3); Red Blood Count 2.75 M/uL (4.7-6.1); White Blood Count 2.58 K/uL (4.8-10.8)
[2020-04-04 06:49] LABS: Mean Platelet Volume 8.7 fL (7.4-10.4); Platelet Count 80 K/uL (130-400)
[2020-04-04 07:17] LABS: BUN Creatinine Ratio 18.7 (10-20); Blood Urea Nitrogen 7 mg/dl (7-18); Calcium 8.6 mg/dl (8.5-10.1); Carbon Dioxide 24 mmol/L (21-32); Chloride 106 mmol/L (98-107); Creatinine Clr Calc Pharmacy 214.2 ml/min; Est GFR (African American) > 150.0; Est GFR (Non-African American) 133.9; Glucose 98 mg/dl (70-99); Magnesium 1.7 mg/dl (1.8-2.4); Potassium 3.7 mmol/L (3.5-5.1); Sodium 137 mmol/L (136-145)
[2020-04-04] MEDS: CYANOCOBALAMIN 500 MCG TABLET (VITAMIN B-12) PO SCH (08:03)
[2020-04-04] MEDS: PANTOprazole 40 MG TAB PO SCH (08:03)
[2020-04-04] MEDS: POTASSIUM CHLORIDE 10 MEQ TABCR PO SCH ×2 (08:03→17:59)
[2020-04-04] MEDS: MoRPHine SULFATE CR 15 MG TABCR PO SCH ×2 (08:06→20:35)
[2020-04-04] MEDS: INSULIN ASPART 100 UNITS/ML 3 ML PEN SC SCH ×4 (08:32→20:56)
--- NOTE | 2020-04-04 13:15 | Hospitalist Progress Note ---
Date of Service April 04, 2020 Assessment & Plan (1) Encephalopathy: Encephalopathy Patient reports Confusion intermittently Likely secondary to chemotherapy and is complicated by infection , hypotension, hyponatremia and possible brain metastasis Normal B12, TSH and Ammonia levels MRI did not show any evidence of metastatic disease. Numerous white matter T2 hyperintense foci suggestive of moderate small vessel disease. Sodium levels normalized Confusion resolved but remains generally weak and lethargic likely secondary to chemotherapy and effect of cancer with metastasis Pancytopenia Likely due to chemotherapy No indication for transfusion currently Remains stable No active bleeding issues Will monitor CBC Diarrhea Dehydration Likely secondary to chemotherapy Renal function is stable Stool for C diff: Negative Continue IV fluids Condition has been improving Dysphonia Likely due to Avastin/Mets Denies dysphagia Has been ongoing Stage IV Colon Adenocarcinoma KRAS positive, NRAS negative BRAF negative. Therapy with Avastin, Irinotecan Follows with [facility], Dr.Nilesh Meraz Appreciate palliative care input -patient wants to continue with aggressive chemo treatment POLST form on file. Will discuss with the oncologist for further chemo options down the line DM II Last HbA1C: 6.10 February 2020 Continue Insulin therapy while hospitalized Monitor BGs DVT Px SCDs RE Thrombocytopenia, Anemia Code Status DNI/DNR Disposition PT/OT prior to discharge Likely to need short-term rehab Admission and Anticipated Discharge Date Admission Date: April 02, 2020 Subjective 04/04/2020 The patient was seen and examined in medical telemetry unit He remains lethargic and very weak generally Denies any significant symptoms except profound weakness Review of Systems Review of Systems: All systems reviewed and are unremarkable except as noted below Neurologic: + generalized weakness; no confusion Psychiatric: + depression and + hopelessness Physical Exam Physical Exam: Lying in bed comfortably Constitutional: + ill appearing; no acute distress Eyes: PERRL, conjunctivae normal, anicteric sclerae ENMT: external ear and nose normal, oropharynx normal Neck: trachea midline, no thyromegaly Respiratory: normal respiratory effort; no respiratory distress Auscultation: lungs clear to auscultation bilaterally Cardiovascular: Rate/Rhythm: regular rate and regular rhythm Heart Sounds: + murmur (ESM 2/6 over precordium) Gastrointestinal (Abdomen): Inspection/Auscultation: abdomen normal to inspection; abdomen not distended Percussion/Palpation: abdomen soft Musculoskeletal: No acute arthritis involving any joints Neurologic: moves all extremities; no focal motor deficits Alert, awake and oriented x3. Very weak and lethargic Lymphatic: no cervical or axillary lymphadenopathy Results & Data Results & Data ([facility]) Vital Signs (Past 12 Hours) Vital Signs Temp Pulse Pulse Resp BP Pulse Ox 04/04/20 08:05 36.5 C 85 16 107/71 98 04/04/20 03:16 36.5 C 76 17 92/60 L 97 Laboratory Results Short CBC 04/04/20 Range/Units 06:14 WBC 2.58 L (4.8-10.8) K/uL Hgb 8.2 L (14.0-18.0) g/dL Hct 26.0 L (42-52) % Plt Count 80 L (130-400) K/uL BMP 04/04/20 06:14 Sodium 137 Potassium 3.7 Chloride 106 Carbon Dioxide 24 BUN 7 Creatinine 0.36 L Glucose 98 Calcium 8.6 Medications Administered Current Inpatient Medications Acetaminophen (Acetaminophen 325 Mg Tab) 650 mg PO Q4H PRN PRN Reason: Pain or Fever Stop: 05/02/20 02:01 Cyanocobalamin (Cyanocobalamin 500 Mcg Tablet (Vitamin B-12)) 500 mcg PO QAM [facility]IS Stop: 05/02/20 08:59 Last Admin: 04/04/20 08:03 Dose: 500 mcg Documented by: Dextrose (Dextrose 50% 50 Ml Syringe) 25 - 50 ml IV UD PRN; Protocol PRN Reason: Hypoglycemia Protocol Stop: 05/02/20 02:01 Ferrous Sulfate (Ferrous Sulfate 325 Mg Tab) 325 mg PO Q2D [facility]IS Stop: 05/03/20 08:59 Last Admin: 04/03/20 08:40 Dose: 325 mg Documented by: Glucagon (Glucagon For Inj 1 Mg Vial) 1 mg SQ UD PRN; Protocol PRN Reason: Hypoglycemia Protocol Stop: 05/02/20 02:01 Glucose (Glucose 10 Tabs/Tube) 4 - 8 tabs PO UD PRN; Protocol PRN Reason: Hypoglycemia Protocol Stop: 05/02/20 02:01 Glucose (Glucose 40% Gel 15 Gm Tube) 15 - 30 gm PO UD PRN; Protocol PRN Reason: Hypoglycemia Protocol Stop: 05/02/20 02:01 Heparin Sodium (Porcine) (Heparin 100 Unit/Ml 5ml Flush) 5 ml FLUSH PRN PRN PRN Reason: Flush Stop: 05/03/20 01:48 Promethazine HCl 12.5 mg/ (Sodium Chloride) 50.5 mls @ 202 mls/hr IV Q6H PRN PRN Reason: Nausea And Vomiting Stop: 05/02/20 02:01 Lactated Ringer's (Lr) 1,000 mls @ 80 mls/hr IV .[id number] ONE Stop: 04/04/20 16:12 Last Admin: 04/04/20 04:02 Dose: 80 mls/hr Documented by: Insulin Aspart (Insulin Aspart 100 Units/Ml 3 Ml Pen) 0 units SC ACHS [facility] Stop: 05/02/20 02:01 Last Admin: 04/04/20 12:48 Dose: 4 units Documented by: Loperamide HCl (Loperamide Hcl 2 Mg Cap) 2 mg PO UD PRN PRN Reason: Diarrhea Stop: 05/02/20 04:47 Miscellaneous (Carbohydrates For Hypoglycemia ) 15 - 30 gm PO UD PRN PRN Reason: Hypoglycemia Protocol Stop: 05/02/20 02:01 Morphine Sulfate (Morphine Sulfate Cr 15 Mg Tabcr) 15 mg PO Q12H [facility] Stop: 04/16/20 08:59 Last Admin: 04/04/20 08:06 Dose: 15 mg Documented by: Oxycodone HCl (Oxycodone Hcl Ir 5 Mg Tab (Immediate Release)) 5 - 10 mg PO QID PRN PRN Reason: Pain Stop: 04/16/20 02:01 Pantoprazole Sodium (Pantoprazole 40 Mg Tab) 40 mg PO QAM [facility] Stop: 05/02/20 08:59 Last Admin: 04/04/20 08:03 Dose: 40 mg Documented by: Potassium Chloride (Potassium Chloride 10 Meq Tabcr) 10 meq PO [id number] [facility] Stop: 05/02/20 08:59 Last Admin: 04/04/20 08:03 Dose: 10 meq Documented by:
[2020-04-04] MEDS: HEPARIN 100 UNIT/ML 5ML FLUSH FLUSH PRN (16:25)
[2020-04-05] MEDS: HEPARIN 100 UNIT/ML 5ML FLUSH FLUSH PRN ×2 (05:58→16:48)
[2020-04-05 06:36] LABS: Hematocrit (blood only) 27.9 % (42-52); Mean Corpuscular Hemoglobin 30.5 pg (25-34); Mean Corpuscular Hgb Conc 32.3 g/dL (32-36); Mean Corpuscular Volume 94.6 fL (80-100); RDW Coefficient of Variation 19.4 % (11.5-14.5); RDW Standard Deviation 65.8 fL (36.4-46.3); Red Blood Count 2.95 M/uL (4.7-6.1)
[2020-04-05 06:38] LABS: Mean Platelet Volume 9.4 fL (7.4-10.4); Platelet Count 92 K/uL (130-400)
[2020-04-05 07:02] LABS: BUN Creatinine Ratio 18.2 (10-20); Calcium 8.7 mg/dl (8.5-10.1); Creatinine Clr Calc Pharmacy 164.1 ml/min; Est GFR (African American) 139.1
[2020-04-05 07:11] LABS: Basophils # (auto) 0.01 K/uL (0-0.2); Basophils % (auto) 0.3 %; Eosinophils # (auto) 0.11 K/uL (0-0.5); Eosinophils % (auto) 3.7 %; Immature Granulocytes # (auto) 0.02 K/uL (0.00-0.02); Immature Granulocytes % (auto) 0.7 %; Lymphocytes # (auto) 0.86 K/uL (1.2-3.4); Lymphocytes % (auto) 28.7 %; Monocytes # (auto) 0.44 K/uL (0.11-0.59); Monocytes % (auto) 14.7 %; Neutrophils # (auto) 1.56 K/uL (1.4-6.5); Neutrophils % (auto) 51.9 %
[2020-04-05] MEDS: CYANOCOBALAMIN 500 MCG TABLET (VITAMIN B-12) PO SCH (07:33)
[2020-04-05] MEDS: POTASSIUM CHLORIDE 10 MEQ TABCR PO SCH (07:33)
[2020-04-05] MEDS: FERROUS SULFATE 325 MG TAB PO SCH (07:34)
[2020-04-05] MEDS: PANTOprazole 40 MG TAB PO SCH (07:34)
[2020-04-05] MEDS: MoRPHine SULFATE CR 15 MG TABCR PO SCH (07:37)
[2020-04-05] MEDS: INSULIN ASPART 100 UNITS/ML 3 ML PEN SC SCH ×2 (08:32→12:18)
--- NOTE | 2020-04-05 13:33 | Hospitalist Progress Note ---
Date of Service April 05, 2020 Assessment & Plan (1) Encephalopathy: Encephalopathy Patient reports Confusion intermittently Likely secondary to chemotherapy and is complicated by infection , hypotension, hyponatremia and possible brain metastasis Normal B12, TSH and Ammonia levels MRI did not show any evidence of metastatic disease. Numerous white matter T2 hyperintense foci suggestive of moderate small vessel disease. Sodium levels normalized Confusion resolved but remains generally weak and lethargic likely secondary to chemotherapy and effect of cancer with metastasis Remains generally weak and lethargic We will get PT and OT evaluation before discharge Pancytopenia Likely due to chemotherapy No indication for transfusion currently Remains stable No active bleeding issues Will monitor CBC-stable Diarrhea Dehydration Likely secondary to chemotherapy Renal function is stable Stool for C diff: Negative Continue IV fluids Condition has been improving Dysphonia Likely due to Avastin/Mets Denies dysphagia Has been ongoing Stage IV Colon Adenocarcinoma KRAS positive, NRAS negative BRAF negative. Therapy with Avastin, Irinotecan Follows with [facility], Dr.Nilesh Meraz Appreciate palliative care input -patient wants to continue with aggressive chemo treatment POLST form on file. Will discuss with the oncologist for further chemo options down the line DM II Last HbA1C: 6.10 February 2020 Continue Insulin therapy while hospitalized Monitor BGs DVT Px SCDs RE Thrombocytopenia, Anemia Code Status DNI/DNR Disposition PT/OT prior to discharge Likely to need short-term rehab Admission and Anticipated Discharge Date Admission Date: April 02, 2020 Subjective 04/04/2020 The patient was seen and examined in medical telemetry unit He remains lethargic and very weak generally Denies any significant symptoms except profound weakness 04/05/2020 The patient was seen and examined in medical telemetry unit He remains extremely weak with minimal improvement He has been able to move around the room by himself He will get PT and OT evaluation before discharge Review of Systems Review of Systems: All systems reviewed and are unremarkable except as noted below Neurologic: + generalized weakness; no confusion Psychiatric: + depression and + hopelessness Physical Exam Physical Exam: Lying in bed comfortably Constitutional: + ill appearing; no acute distress Eyes: PERRL, conjunctivae normal, anicteric sclerae ENMT: external ear and nose normal, oropharynx normal Neck: trachea midline, no thyromegaly Respiratory: normal respiratory effort; no respiratory distress Auscultation: lungs clear to auscultation bilaterally Cardiovascular: Rate/Rhythm: regular rate and regular rhythm Heart Sounds: + murmur (ESM 2/6 over precordium) Gastrointestinal (Abdomen): Inspection/Auscultation: + abdomen distended Percussion/Palpation: abdomen soft; abdomen nontender Musculoskeletal: No acute arthritis involving any joint Neurologic: moves all extremities; no focal motor deficits Psychiatric: Affect: + depressed affect Lymphatic: no cervical or axillary lymphadenopathy Results & Data Results & Data ([facility]) Vital Signs (Past 12 Hours) Vital Signs Temp Pulse Resp BP Pulse Ox 04/05/20 07:18 36.5 C 81 16 101/69 93 Laboratory Results Short CBC 04/05/20 Range/Units 05:58 WBC 3.00 L (4.8-10.8) K/uL Hgb 9.0 L (14.0-18.0) g/dL Hct 27.9 L (42-52) % Plt Count 92 L (130-400) K/uL BMP 04/05/20 05:58 Sodium 138 Potassium 4.0 Chloride 106 Carbon Dioxide 26 BUN 9 Creatinine 0.47 L Glucose 124 H Calcium 8.7 Medications Administered Current Inpatient Medications Acetaminophen (Acetaminophen 325 Mg Tab) 650 mg PO Q4H PRN PRN Reason: Pain or Fever Stop: 05/02/20 02:01 Cyanocobalamin (Cyanocobalamin 500 Mcg Tablet (Vitamin B-12)) 500 mcg PO QAM [facility] Stop: 05/02/20 08:59 Last Admin: 04/05/20 07:33 Dose: 500 mcg Documented by: Dextrose (Dextrose 50% 50 Ml Syringe) 25 - 50 ml IV UD PRN; Protocol PRN Reason: Hypoglycemia Protocol Stop: 05/02/20 02:01 Ferrous Sulfate (Ferrous Sulfate 325 Mg Tab) 325 mg PO Q2D [facility] Stop: 05/03/20 08:59 Last Admin: 04/05/20 07:34 Dose: 325 mg Documented by: Glucagon (Glucagon For Inj 1 Mg Vial) 1 mg SQ UD PRN; Protocol PRN Reason: Hypoglycemia Protocol Stop: 05/02/20 02:01 Glucose (Glucose 10 Tabs/Tube) 4 - 8 tabs PO UD PRN; Protocol PRN Reason: Hypoglycemia Protocol Stop: 05/02/20 02:01 Glucose (Glucose 40% Gel 15 Gm Tube) 15 - 30 gm PO UD PRN; Protocol PRN Reason: Hypoglycemia Protocol Stop: 05/02/20 02:01 Heparin Sodium (Porcine) (Heparin 100 Unit/Ml 5ml Flush) 5 ml FLUSH PRN PRN PRN Reason: Flush Stop: 05/03/20 01:48 Last Admin: 04/05/20 05:58 Dose: 5 ml Documented by: Promethazine HCl 12.5 mg/ (Sodium Chloride) 50.5 mls @ 202 mls/hr IV Q6H PRN PRN Reason: Nausea And Vomiting Stop: 05/02/20 02:01 Insulin Aspart (Insulin Aspart 100 Units/Ml 3 Ml Pen) 0 units SC ACHS [facility] Stop: 05/02/20 02:01 Last Admin: 04/05/20 12:18 Dose: 3 units Documented by: Loperamide HCl (Loperamide Hcl 2 Mg Cap) 2 mg PO UD PRN PRN Reason: Diarrhea Stop: 05/02/20 04:47 Miscellaneous (Carbohydrates For Hypoglycemia ) 15 - 30 gm PO UD PRN PRN Reason: Hypoglycemia Protocol Stop: 05/02/20 02:01 Morphine Sulfate (Morphine Sulfate Cr 15 Mg Tabcr) 15 mg PO Q12H [facility] Stop: 04/16/20 08:59 Last Admin: 04/05/20 07:37 Dose: 15 mg Documented by: Oxycodone HCl (Oxycodone Hcl Ir 5 Mg Tab (Immediate Release)) 5 - 10 mg PO QID PRN PRN Reason: Pain Stop: 04/16/20 02:01 Pantoprazole Sodium (Pantoprazole 40 Mg Tab) 40 mg PO QAM [facility] Stop: 05/02/20 08:59 Last Admin: 04/05/20 07:34 Dose: 40 mg Documented by: Potassium Chloride (Potassium Chloride 10 Meq Tabcr) 10 meq PO [id number] [facility] Stop: 05/02/20 08:59 Last Admin: 04/05/20 07:33 Dose: 10 meq Documented by:
--- NOTE | 2020-04-06 08:10 | Discharge Summary ---
Date of Service April 06, 2020 Admission HPI Per Admitting Provider History obtained from patient and records. Medical history significant for metastatic colon cancer status post surgery ongoing chemotherapy, DM 2 on oral meds, hyperlipidemia, urolithiasis, chronic pancytopenia (baseline hemoglobin 10-11), history C. difficile/Salmonella infection status post treatment as per records, past tobacco abuse. Last confinement August 2019 for colitis attributed to chemotherapy. Hoarseness noted about 3 months ago as per patient. PET scan from December 2019 showed FDG avid mediastinal and bilateral hilar lymph nodes, retroperitoneal and right retrocrural lymphadenopathy compatible with metastatic disease. Liver heterogeneity could be physiologic however small areas of metastatic disease cannot be excluded. Enlarging pulmonary nodules particularly on the left concerning for metastatic disease. Patient chemotherapy cycle started 10 days ago after outpatient discussion with [facility] oncologist almost 3 weeks ago. Loose stools about 5 times a day, nonbloody as per patient. No fever, no chills, no abdominal pain. " What ever I eat comes out," as per patient. Increasing generalized weakness at home, poor appetite. Achy headache symptoms as per patient. Confusion as per family. Patient brought to the ER for evaluation. Initial SBP at the ER 80 to 90s. Patient stool noted to be dark brown and weakly heme positive as per ER provider. 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 Admission Exam Per Admitting Provider Physical Exam: GENERAL: Wane, chronically ill, dysphonic, no respiratory distress SKIN: Pallor , warm HEENT: Alopecia, pale palpebral conjunctivae, no ptosis, dry buccal mucosa NECK : Supple, no tenderness CHEST : CTA, no tenderness HEART : RRR, no obvious murmurs ABDOMEN: Some distention, nontender EXTREMITIES : No LE swelling/tenderness, no other conspicuous deformities noted NEUROLOGIC : Coherent, no facial asymmetry, dysphonia, no other gross focality Principal Diagnosis Metabolic encephalopathy, likely secondary to side effects of chemotherapeutic medication, pancytopenia, stage IV adenocarcinoma of colon Discharge Exam Constitutional + ill appearing; no acute distress Eyes PERRL, conjunctivae normal, anicteric sclerae ENMT external ear and nose normal, oropharynx normal Neck trachea midline, no thyromegaly Respiratory normal respiratory effort; no respiratory distress Auscultation: lungs clear to auscultation bilaterally Cardiovascular Rate/Rhythm: regular rate and regular rhythm Heart Sounds: + murmur (ESM 2/6 over precordium) Gastrointestinal (Abdomen) Inspection/Auscultation: + abdomen distended Percussion/Palpation: abdomen soft; abdomen nontender Neurologic moves all extremities; no focal motor deficits Psychiatric Affect: + depressed affect Lymphatic no cervical or axillary lymphadenopathy Discharge Data Allergies Allergy/AdvReac Type Severity Reaction Status Date / Time No Known Allergies Allergy Verified 04/01/20 21:57 Consultations 04/01/20 22:41 ED Decision to Admit Stat 04/02/20 15:40 Consult Palliative Care Routine Ordered Studies 04/01/20 20:52 CT head/brain wo con Urgent 04/02/20 04:20 MR brain wo/w con Routine Hospital Course (1) Encephalopathy: Encephalopathy Patient reports Confusion intermittently Likely secondary to chemotherapy and is complicated by infection , hypotension, hyponatremia and possible brain metastasis Normal B12, TSH and Ammonia levels MRI did not show any evidence of metastatic disease. Numerous white matter T2 hyperintense foci suggestive of moderate small vessel disease. Sodium levels normalized Confusion resolved but remains generally weak and lethargic likely secondary to chemotherapy and effect of cancer with metastasis Remains generally weak and lethargic We will get PT and OT evaluation before discharge Pancytopenia Likely due to chemotherapy No indication for transfusion currently Remains stable No active bleeding issues Will monitor CBC-stable Diarrhea Dehydration Likely secondary to chemotherapy Renal function is stable Stool for C diff: Negative Continue IV fluids Condition has been improving Dysphonia Likely due to Avastin/Mets Denies dysphagia Has been ongoing Stage IV Colon Adenocarcinoma KRAS positive, NRAS negative BRAF negative. Therapy with Avastin, Irinotecan Follows with [facility], Dr.Nilesh Meraz Appreciate palliative care input -patient wants to continue with aggressive chemo treatment POLST form on file. Will discuss with the oncologist for further chemo options down the line DM II Last HbA1C: 6.10 February 2020 Continue Insulin therapy while hospitalized Monitor BGs DVT Px SCDs RE Thrombocytopenia, Anemia Code Status DNI/DNR Disposition PT/OT prior to discharge Likely to need short-term rehab Total Time Total Time Spent Total Time Spent (In Minutes): 35 minutes Total Time Includes: Examination of the Patient, Discharge Planning, Medication Reconciliation and Communication With Other Providers Discharge Plan Discharge Items Patient Disposition: Home - Self-Care Reason For Visit: HYPOTENSION Discharge Diagnosis: Metabolic encephalopathy, likely secondary to side effects of chemotherapeutic medication, pancytopenia, stage IV adenocarcinoma of colon Condition on Discharge: Fair Activity: Resume your previous activity Non-emergency contact: Primary Care Provider Call non-emergency contact if: you have any medication questions and your symptoms worsen Follow-up/Referrals: Duong Matt MD [Primary Care Provider] - 04/11/20 11:20 am (Date & Time 04/11/2020 11:20 AM Provider Duong Matt MD Department Internal Medicine [facility] ) Diet: Carb Consistent or DM2 Addtl Attending Provider Instructions: Please take extra precaution to avoid falls Your oncologist office will give you a call with appointment Your cancer medicines have been continued but before you start taking it make sure it is okay from your oncologist. Pending Studies at Discharge: No Stand-Alone Forms: My [facility] [employer], Smoking Cessation Medications and DC Order Prescriptions: Continued pioglitazone [Actos] 30 mg Tablet 30 mg PO QAM RF: 0 acetaminophen [Tylenol Extra Strength] 500 mg Tablet 500 mg PO Q6H PRN (Reason: Pain) RF: 0 Avastin 25 mg/mL Solution 0 mg IV UD RF: 0 ondansetron HCl [Zofran] 8 mg tablet 8 mg PO Q8H PRN (Reason: nausea and vomiting) 30 Days Qty: 90 RF: 3 Jardiance 10 mg tablet 10 mg PO QAM RF: 0 prochlorperazine maleate [Compazine] 10 mg tablet 10 mg PO Q6H RF: 0 oxycodone-acetaminophen 5-325 mg Tablet 1 tab PO Q6 PRN (Reason: Pain) RF: 0 ferrous sulfate 325 mg (65 mg iron) Tablet 325 mg PO Q2D RF: 0 diphenoxylate-atropine 2.5-0.025 mg tablet 1 tab PO QID PRN (Reason: Diarrhea) RF: 0 hyoscyamine sulfate [Levsin] 0.125 mg tablet 0.125 mg PO Q6H PRN (Reason: CRAMPING) RF: 0 cyanocobalamin (vitamin B-12) [Vitamin B-12] 500 mcg Tablet 500 mcg PO QAM RF: 0 morphine 15 mg tablet extended release 15 mg PO Q12H RF: 0 potassium chloride [Klor-Con M10] 10 mEq tablet,ER particles/crystals 10 meq PO BID RF: 0 omeprazole 20 mg Tablet,Delayed Release (Dr/Ec) 20 mg PO QAM RF: 0 irinotecan 40 mg/2 mL Solution 0 mg IV UD RF: 0 Discharge Orders: Discharge Order (Routine); Ordered 04/05/20 Ordered By: Natalya Ellington Admission Data Admit Date/Time: 04/02/20 00:29 Attending Provider: Natalya Ellington Admit Provider: Manjinder Oh Primary Care Provider: Duong Matt Other Providers: Chino Correa ; Manjinder Oh ; Mary Mckinney Other Interventions: Discharge Summary Assessment (RN) Last Done: 04/05/20 16:43
== END 2020-04-05 17:10 | disposition home or self-care (01) | DRG 91 ==
LOC: ED 20:32 → 2S 04-02 00:29 → SUATTDRO 04-02 00:29 → 2S 04-02 01:35 → 2N 04-04 07:50

== ENCOUNTER 2020-05-05 23:37 | Inpatient (IN) ==
[2020-05-06 00:28] LABS: Hematocrit (blood only) 29.9 % (42-52); Hemoglobin 9.5 g/dL (14.0-18.0); Mean Corpuscular Hemoglobin 30.4 pg (25-34); Mean Corpuscular Hgb Conc 31.8 g/dL (32-36); Mean Corpuscular Volume 95.5 fL (80-100); RDW Coefficient of Variation 16.9 % (11.5-14.5); RDW Standard Deviation 58.5 fL (36.4-46.3); Red Blood Count 3.13 M/uL (4.7-6.1); White Blood Count 2.25 K/uL (4.8-10.8)
--- NOTE | 2020-05-06 00:29 | Emergency Department Note ---
History of Present Illness General Chief complaint: Rectal Bleed Stated complaint: CONSTIPATION/RECTAL BLEEDING/COLON CANCER Time Seen by Provider: 05/06/20 00:00 Source: patient and family (daughter) Mode of arrival: ambulatory Limitations: no limitations History of Present Illness Maximum Pain Intensity: 8 This patient is a 59-year-old male who presents to the emergency department accompanied by his daughter for evaluation of rectal bleeding and abdominal pain. Patient has a history of colon cancer and is currently undergoing chemotherapy. He reports he has been constipated for the past 1 week. He was supposed to get chemo today but his oncologist evaluated him and skipped this treatment for now. He recommended trying suppositories for the constipation. Patient used the suppository tonight. About 2 hours prior to arrival, he tried to have a bowel movement and states that there was no stool, just a large amount of blood, measuring about 1 cup. Patient has been nauseous and has had some mid abdominal pain. He does feel overall weak. He rates his discomfort an 8/10. No syncopal episodes or chest pain. Patient does not take any anticoagulants. Home Medications Home Medications Medication Instructions Recorded Confirmed Type pioglitazone [Actos] 30 mg PO QAM 04/18/18 05/06/20 History ferrous sulfate 325 mg PO Q2D 10/02/18 05/06/20 History Avastin 0 mg IV UD 08/13/19 05/06/20 History acetaminophen [Tylenol Extra 500 mg PO Q6H PRN 08/13/19 05/06/20 History Strength] Jardiance 10 mg PO QAM 08/31/19 05/06/20 History oxycodone-acetaminophen 1 tab PO Q6 PRN 12/27/19 05/06/20 History prochlorperazine maleate 10 mg PO AMHS 12/27/19 05/06/20 History [Compazine] cyanocobalamin (vitamin B-12) 500 mcg PO QAM 02/11/20 05/06/20 History [Vitamin B-12] diphenoxylate-atropine 1 tab PO QID PRN 02/11/20 05/06/20 History hyoscyamine sulfate [Levsin] 0.125 mg PO Q6H PRN 02/11/20 05/06/20 History irinotecan 0 mg IV UD 04/01/20 05/06/20 History morphine 15 mg PO Q12H 04/01/20 05/06/20 History omeprazole 20 mg PO QAM 04/01/20 05/06/20 History potassium chloride [Klor-Con M10] 10 meq PO BID 04/01/20 05/06/20 History ondansetron HCl 8 mg PO Q8 PRN 05/06/20 05/06/20 History Allergies Allergy/AdvReac Type Severity Reaction Status Date / Time No Known Allergies Allergy Verified 05/06/20 00:33 Past Med/Surg History Medical History (Updated 05/06/20 @ 07:46 by May Hager PA-C) Anxiety C. difficile colitis hx ~2017. 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 Depression Diverticulitis of colon with perforation NO SURGERY DM type 2 (diabetes mellitus, type 2) Dyslipidemia Immunocompromised Kidney stones Obesity Osteoarthritis Pancytopenia Follows with heme Splenomegaly r/t chemotherapy Surgical History History of colonoscopy History of cystoscopy STONE REMOVAL WITH STENT PLACED History of esophagogastroduodenoscopy (EGD) History of tooth extraction History of vascular access device RIGHT UPPER CHEST PLACED 09/2018 Hx of hernia repair Hx of tonsillectomy Family History Mother , Age 62 Breast cancer Father , Age 62 Stroke Sister Family history of diabetes mellitus Brother Family history of diabetes mellitus Brother Family history of diabetes mellitus Other No family history of adverse response to anesthesia Social History Smoking Status: Former smoker Tobacco Type: Cigarettes Second Hand Exposure: Yes (sometimes); Do You Dip or Chew Tobacco: No; Hx Alcohol Use: No Hx Substance Use: Yes Preferred Language: Syriac Communication Ability: Effective Visual Impairment: No Limitations Parts Order And Stock Clerk Required: No Beliefs That Will Affect Care: None Current Living Situation: Family Current Living Situation Comment: daughter lives with patient Other Information That Helps Us Care for You: No Feels Safe at Home: Yes Safety Concerns: Feels Safe At This Time Assistive Devices: None Review of Systems A total of 10 systems reviewed and were otherwise negative Physical Exam Vital Signs Vital Signs - 24 hr 05/05/20 23:46 05/06/20 01:05 05/06/20 02:08 Temperature 37.1 C Temperature Source Oral Pulse Rate 98 H Pulse Rate [Left Finger] 76 87 Respiratory Rate 16 16 18 Respiratory Depth Normal Blood Pressure 115/79 Blood Pressure [Right Arm] 109/65 127/70 Blood Pressure Mean 91 Blood Pressure Mean [Right Arm] 79 89 Blood Pressure Position [Right Arm] Sitting Pulse Oximetry 100 99 99 Oxygen Delivery Method Room Air Room Air Room Air Sepsis Recent Fever Within 48 Hours No Sepsis New/Unexplained Change in Mental Status No Sepsis Action Taken by Nursing No Action Required 05/06/20 02:59 05/06/20 03:00 Temperature Temperature Source Pulse Rate 97 H Pulse Rate [Left Finger] Respiratory Rate 18 Respiratory Depth Blood Pressure 115/75 Blood Pressure [Right Arm] Blood Pressure Mean 86 Blood Pressure Mean [Right Arm] Blood Pressure Position [Right Arm] Pulse Oximetry 97 Oxygen Delivery Method Room Air Sepsis Recent Fever Within 48 Hours Sepsis New/Unexplained Change in Mental Status Sepsis Action Taken by Nursing VITALS: Vitals are noted on the nurse's note and reviewed by myself. GENERAL: This is a 59-year-old male, chronically unwell appearing, no acute distress. SKIN: The skin was without rashes. EARS: External auditory canals clear, tympanic membranes pearly conklin without aries thema or effusion bilaterally. EYES: Pupils equal round and reactive to light and accommodation. MOUTH: Mucous membranes moist. Tonsils are not enlarged. Pharynx without erythema or exudate. NECK: Supple without nuchal rigidity. No lymphadenopathy. HEART: Regular rate and rhythm without murmurs gallops or rubs. LUNGS: Clear to auscultation bilaterally without wheezes, rales or rhonchi. ABDOMEN: Positive bowel sounds x 4. Soft, tenderness to palpation throughout the mid abdomen, right greater than left. RECTAL: Light brown heme positive stool noted. No masses or active bleeding. NEURO: Patient was alert and oriented to person place and time. Course Consultations [facility] Administered Medications Sodium Chloride (Nss 1000ml) 1,000 mls @ 100 mls/hr IV .Q10H LUIS Stop: 06/05/20 04:33 Last Admin: 05/06/20 05:27 Dose: 100 mls/hr Documented by: [id number] Discontinued Medications Famotidine (Famotidine 20mg/5ml Iv Push) 20 mg IV ONE STA Stop: 05/06/20 02:45 Last Admin: 05/06/20 02:55 Dose: 20 mg Documented by: [id number] Ioversol (Ioversol 100ml) 93 ml IV ONCE ONE Stop: 05/06/20 01:10 Last Admin: 05/06/20 01:09 Dose: 93 ml Documented by: [id number] Ondansetron HCl (Ondansetron Inj 2 Mg/Ml 2 Ml Vial) 4 mg IV NOW STA Stop: 05/06/20 02:45 Last Admin: 05/06/20 02:55 Dose: 4 mg Documented by: [id number] Medical Decision Making Differential Diagnosis Diverticulosis, AVM, coagulopathy, colitis, inflammatory bowel disease, malignancy, Zuleyma-Butler tear, esophagitis, peptic ulcer disease, variceal bleed, gastritis, epistaxis, fissure, hemorrhoids, as well as other pathologies. Home Medications Current Medication List: was personally reviewed by me Laboratory Data Attestation: I reviewed the patient's lab results. Result diagrams: 05/05/20 23:55 05/05/20 23:55 Lab Results 05/05/20 05/05/20 05/05/20 Range/Units 23:55 23:55 23:55 WBC 2.25 L (4.8-10.8) K/uL RBC 3.13 L (4.7-6.1) M/uL Hgb 9.5 L (14.0-18.0) g/dL Hct 29.9 L (42-52) % MCV 95.5 (80-100) fL MCH 30.4 (25-34) pg MCHC 31.8 L (32-36) g/dL RDW Std Deviation 58.5 H (36.4-46.3) fL RDW Coeff of Ivette 16.9 H (11.5-14.5) % Plt Count 45 L (130-400) K/uL MPV 9.7 (7.4-10.4) fL Immature Gran % (Auto) 0.0 % Neut % (Auto) 65.4 % Lymph % (Auto) 23.1 % Coles % (Auto) 9.3 % Eos % (Auto) 2.2 % Baso % (Auto) 0.0 % Neut # (Auto) 1.47 (1.4-6.5) K/uL Lymph # (Auto) 0.52 L (1.2-3.4) K/uL Coles # (Auto) 0.21 (0.11-0.59) K/uL Eos # (Auto) 0.05 (0-0.5) K/uL Baso # (Auto) 0.00 (0-0.2) K/uL Immature Gran # (Auto) 0.00 (0.00-0.02) K/uL Platelet Estimate Decreased L (Normal) PT 11.5 (9.0-12.0) Seconds INR 1.1 (0.9-1.1) APTT 61.8 H* (21.0-31.0) Seconds PTT Ratio 2.2 Sodium (136-145) mmol/L Potassium (3.5-5.1) mmol/L Chloride (98-107) mmol/L Carbon Dioxide (21-32) mmol/L Anion Gap (3-11) BUN (7-18) mg/dl Creatinine (0.6-1.4) mg/dl Est Cr Clr Drug Dosing ml/min Est GFR ( Amer) Est GFR (Non-Af Amer) BUN/Creatinine Ratio (10-20) Glucose (70-99) mg/dl Calcium (8.5-10.1) mg/dl Magnesium (1.8-2.4) mg/dl Total Bilirubin (0.2-1) mg/dl AST (15-37) U/L ALT (12-78) U/L Alkaline Phosphatase (45-117) U/L Total Protein (6.4-8.2) gm/dl Albumin (3.4-5.0) gm/dl Globulin (2.5-4.0) gm/dl Albumin/Globulin Ratio (0.9-2) Blood Type A Positive Antibody Screen NEGATIVE Crossmatch See Detail 05/05/20 Range/Units 23:55 WBC (4.8-10.8) K/uL RBC (4.7-6.1) M/uL Hgb (14.0-18.0) g/dL Hct (42-52) % MCV (80-100) fL MCH (25-34) pg MCHC (32-36) g/dL RDW Std Deviation (36.4-46.3) fL RDW Coeff of Ivette (11.5-14.5) % Plt Count (130-400) K/uL MPV (7.4-10.4) fL Immature Gran % (Auto) % Neut % (Auto) % Lymph % (Auto) % Coles % (Auto) % Eos % (Auto) % Baso % (Auto) % Neut # (Auto) (1.4-6.5) K/uL Lymph # (Auto) (1.2-3.4) K/uL Coles # (Auto) (0.11-0.59) K/uL Eos # (Auto) (0-0.5) K/uL Baso # (Auto) (0-0.2) K/uL Immature Gran # (Auto) (0.00-0.02) K/uL Platelet Estimate (Normal) PT (9.0-12.0) Seconds INR (0.9-1.1) APTT (21.0-31.0) Seconds PTT Ratio Sodium 135 L (136-145) mmol/L Potassium 4.0 (3.5-5.1) mmol/L Chloride 104 (98-107) mmol/L Carbon Dioxide 22 (21-32) mmol/L Anion Gap 9.0 (3-11) BUN 12 (7-18) mg/dl Creatinine 0.61 (0.6-1.4) mg/dl Est Cr Clr Drug Dosing 124.8 ml/min Est GFR ( Amer) 124.9 Est GFR (Non-Af Amer) 107.8 BUN/Creatinine Ratio 20.2 H (10-20) Glucose 119 H (70-99) mg/dl Calcium 8.9 (8.5-10.1) mg/dl Magnesium 1.8 (1.8-2.4) mg/dl Total Bilirubin 1.1 H (0.2-1) mg/dl AST 14 L (15-37) U/L ALT 16 (12-78) U/L Alkaline Phosphatase 134 H (45-117) U/L Total Protein 6.7 (6.4-8.2) gm/dl Albumin 2.8 L (3.4-5.0) gm/dl Globulin 3.9 (2.5-4.0) gm/dl Albumin/Globulin Ratio 0.7 L (0.9-2) Blood Type Antibody Screen Crossmatch Imaging Data Attestation: I personally reviewed and interpreted this imaging study as follows: Radiologist's Impression: CT ABDOMEN & PELVIS With Contrast: Circumferential wall thickening of the lower rectum with submucosal edema, perirectal fat stranding and edema compatible with history of rectal malignancy. Moderate stool throughout the colon suggests constipation. Additional segment of wall thickening and submucosal edema in the sigmoid and descending colon could indicate infection/inflammation. Focal circumferential wall thickening of the duodenum could indicate duodenitis. Small hiatal hernia. Cholelithiasis without definite evidence of cholecystitis. No biliary dilatation. Splenomegaly. Left nephrolithiasis. No hydronephrosis. Nonenhancing cyst in the left kidney is probably benign. Similar appearance of fat stranding and edema in the retroperitoneum associated with subcentimeter lymph nodes. Radiologist: Jose Guadalupe Orellana MD ECG Data Attestation: I personally reviewed and interpreted this ECG as follows: Indication: + weakness Rate (beats per minute): 79 Rhythm: + normal sinus ECG Intervals/blocks: + Normal QRS ECG [place]: + Normal ECG ST segments: + Normal ST segments MDM Narrative The patient is a 59-year-old male with past medical history of colon cancer who presents today complaining of GI bleeding. Labs revealed pancytopenia. Patient's hemoglobin is 9.5. Patient's daughter reports this was done in the [email or web address] system earlier today and was over 10. A CT scan of the abdomen/pelvis was performed and shows some nonspecific inflammatory findings. Patient's vital signs stable in the emergency department, but he has been feeling quite weak over the past few days. Given the large amount of bleeding that he had (daughter reports at least 1 cup) I do feel that the patient warrants evaluation by the hospitalist for inpatient care. Patient and daughter agreeable to this plan. Case discussed with the [facility] hospitalist service for further care. Impression & Plan Acute lower GI bleeding Discharge Plan Visit Data Chief Complaint: Rectal Bleed Stated Complaint: CONSTIPATION/RECTAL BLEEDING/COLON CANCER ED Provider: Harlan Monterroso ED Midlevel Provider: May Hager Discharge Problem: Acute lower GI bleeding Patient Disposition: Admitted As Inpatient Discharge Instructions Interventions: ED Discharge Assessment Last Done: 05/06/20 04:05
[2020-05-06 00:37] LABS: Albumin Level 2.8 gm/dl (3.4-5.0); BUN Creatinine Ratio 20.2 (10-20); Calcium 8.9 mg/dl (8.5-10.1); Creatinine Clr Calc Pharmacy 124.8 ml/min; Est GFR (African American) 124.9; Est GFR (Non-African American) 107.8; Magnesium 1.8 mg/dl (1.8-2.4)
[2020-05-06 00:40] LABS: Albumin Globulin Ratio 0.7 (0.9-2); Bilirubin,Total 1.1 mg/dl (0.2-1); Globulin 3.9 gm/dl (2.5-4.0); Total Protein 6.7 gm/dl (6.4-8.2)
[2020-05-06 00:46] LABS: Mean Platelet Volume 9.7 fL (7.4-10.4); Platelet Count 45 K/uL (130-400)
[2020-05-06 00:47] LABS: Eosinophils # (auto) 0.05 K/uL (0-0.5); Eosinophils % (auto) 2.2 %; Lymphocytes # (auto) 0.52 K/uL (1.2-3.4); Lymphocytes % (auto) 23.1 %; Monocytes # (auto) 0.21 K/uL (0.11-0.59); Monocytes % (auto) 9.3 %; Neutrophils # (auto) 1.47 K/uL (1.4-6.5); Neutrophils % (auto) 65.4 %; Platelet Estimate Decreased (Normal)
[2020-05-06 00:48] LABS: INR 1.1 (0.9-1.1); Partial Thromboplastin Ratio 2.2; Prothrombin Time 11.5 Seconds (9.0-12.0)
[2020-05-06 00:52] LABS: Partial Thromboplastin Time 61.8 Seconds (21.0-31.0)
[2020-05-06] MEDS ORDERED: IOVERSOL 100ml IV ONE (01:09)
[2020-05-06] MEDS ORDERED: FAMOTIDINE 20MG/5ML IV PUSH IV STA (02:44)
[2020-05-06] MEDS ORDERED: ONDANSETRON INJ 2 MG/ML 2 ML VIAL IV STA (02:44)
[2020-05-06] MEDS ORDERED: ONDANSETRON INJ 2 MG/ML 2 ML VIAL IV PRN (04:34)
[2020-05-06] MEDS ORDERED: SODIUM CHLORIDE 0.9% 250 ML IV PRN (04:34)
[2020-05-06] MEDS ORDERED: oxyCODONE/ACETAMINOPHEN 5mg/325mg TAB PO PRN (04:34)
[2020-05-06] MEDS ORDERED: ACETAMINOPHEN 325 MG TAB PO PRN ×2 (04:34→07:14)
[2020-05-06] MEDS ORDERED: SODIUM CHLORIDE 0.9% 1000ML 1,000 ML IV SCH (04:34)
[2020-05-06] MEDS ORDERED: NITROGLYCERIN SL 0.4 MG/TAB TAB SL PRN (04:34)
[2020-05-06] MEDS ORDERED: GLUCOSE 40% GEL 15 GM TUBE PO PRN (05:00)
[2020-05-06] MEDS ORDERED: GLUCOSE 10 TABS/TUBE PO PRN (05:00)
[2020-05-06] MEDS ORDERED: GLUCAGON FOR INJ 1 MG VIAL SQ PRN (05:00)
[2020-05-06] MEDS ORDERED: DEXTROSE 50% 50 ML SYRINGE IV PRN (05:00)
[2020-05-06] MEDS ORDERED: CARBOHYDRATES FOR HYPOGLYCEMIA PO PRN (05:00)
--- NOTE | 2020-05-06 07:29 | History and Physical Report ---
DATE OF ADMISSION: 05/06/2020 CHIEF COMPLAINT: Rectal bleed. HISTORY OF PRESENT ILLNESS: This is a 59-year-old male with past medical history significant for metastatic colon cancer, status post surgery, ongoing chemotherapy, pancytopenia, diabetes, hyperlipidemia, history of urolithiasis, history of C. diff, Salmonella infection, history of tobacco abuse, who lives with his daughter, who was brought in because of rectal bleed. The patient is currently getting chemo every 2 weeks. He was supposed to get chemo yesterday, but outpatient labs showed platelets of 45, which is less than his usual, and also he was not feeling well, so they did not give chemo and he is also constipated since last about 1 week. They tried stool softeners and yesterday they tried suppository. He did not move his bowel, but he had a large amount of blood per rectum two episodes and was brought into the ER. Hemoglobin in the morning was 10.5, which is his baseline and his platelets are 49. His platelets were 60 about a week and today here his hemoglobin is 9.5. His hemoccult was positive. He usually has belly pain in the lower abdomen today but today also having abdominal pain in the epigastric region, mild to moderate in severity. Was nauseous, but no vomiting. Currently, hemodynamics are stable. Denies any other complaints. As per daughter, he ambulates without any support. He is getting PT/OT at home. Denies any headache, no blurred visions, no earache, no runny nose, no sore throat, no cough, no dysphagia, no chest pain, no shortness of breath. Appetite is not that great. Today he has some difficulty micturating, but denies any burning micturition or hematuria. No swelling in the legs, no rash. ALLERGIES: No known drug allergies. PAST MEDICAL HISTORY: As mentioned above. PAST SURGICAL HISTORY: Colonoscopy with biopsy, cystoscopy, EGDs, A-port placement, removal of kidney stones, tonsillectomy, adenoidectomy, inguinal hernia repair. MEDICATIONS: The patient is on Tylenol 650 mg p.o. q. 4 hours p.r.n., vitamin B12 500 mcg p.o. a.m., Lomotil 1 tablet p.o. q.i.d. p.r.n., ferrous sulfate 325 mg p.o. every other day, Levsin 0.125 mg p.o. q. 6 hours p.r.n., , Jardiance 10 mg p.o. a.m., morphine 15 mg p.o. q. 12 hours, omeprazole 20 mg p.o. a.m., Zofran 8 mg p.o. q. 8 hours p.r.n., oxycodone/acetaminophen 5/325 mg one tablet p.o. q. 6 hours p.r.n., Actos 30 mg p.o. a.m., potassium chloride 10 mEq p.o. b.i.d., Compazine 10 mg p.o. a.m. and at bedtime. FAMILY HISTORY: Significant for mother had breast cancer, at age of 62; father had stroke, at age of 62; brother has diabetes; sister has diabetes. SOCIAL HISTORY: Currently living with daughter. Former smoker, occasional cigars. No alcohol use, no drug use. REVIEW OF SYSTEMS: As per HPI. Rest of the review of systems negative. PHYSICAL EXAMINATION: GENERAL: The patient is of moderate build, not in acute distress. VITAL SIGNS: Temperature 37.1, pulse 97, respiratory rate 18, blood pressure 115/75, oxygen 97% on room air. HEENT: No pallor, no icterus. Pupils equal, round, and reactive to light. Oral mucosa moist. NECK: No JVD, no neck masses. CARDIOVASCULAR: S1, S2 heard. Regular rate and rhythm. No murmur, no gallop. Left-sided A-port seen. RESPIRATORY SYSTEM: Normal AP diameter. No accessory muscle use. No wheezing, no crackles. ABDOMEN: Soft, bowel sounds present. Mild epigastric tenderness. No guarding, no rigidity, no distention. CENTRAL NERVOUS SYSTEM: Cranial nerves II-XII grossly intact. Nonfocal. EXTREMITIES: No edema, no erythema. LABORATORY DATA: WBC 2.2, hemoglobin 9.5, hematocrit 29.9, platelets 45. PT 11.5, INR 1.1, APTT 61.8. Sodium 135, potassium 4, chloride 104, bicarbonate 22, BUN 12, creatinine 0.6, serum glucose 119, calcium 8.9, magnesium 1.8, total bilirubin 1.1, AST 14, ALT 16, alkaline phosphatase 134. IMAGING DATA: CT of abdomen and pelvis showed circumferential wall thickening of the lower rectum with submucosal edema, perirectal fat stranding and edema compatible with history of rectal malignancy. Moderate stool throughout the colon suggestive of constipation. Additional segment of wall thickening and submucosal edema in the sigmoid and descending colon, could indicate infection, inflammation. Focal circumferential wall thickening of the duodenum could indicate duodenitis. Small hiatal hernia, cholelithiasis without definite evidence of cholecystitis. No biliary dilatation, splenomegaly, left nephrolithiasis. No hydronephrosis. Nonenhancing cyst in the left kidney, probably benign. Similar appearance of fat stranding and edema in the retroperitoneum associated with subcentimeter lymph nodes. EKG: Normal sinus rhythm at a rate of 79, no significant change was found. ASSESSMENT AND PLAN: This 59-year-old male presents with rectal bleed. 1. Rectal bleed. History of colon cancer. Was constipated. After stool suppository, had two large amounts of rectal bleed. Hemoglobin is 9.5, in the morning it was 10.5. CAT scan is also showing duodenitis. He has also some epigastric abdominal pain. Will place him on IV Protonix b.i.d. Hemoglobin and hematocrit q. 6 hours. Blood consent obtained. We will hold 2 units of PRBCs. Consult GI in the a.m. We will keep him n.p.o. and IV fluids. 2. Metastatic colon cancer, status post surgery. Currently getting chemo every two weeks. In the morning, chemo was not given because of the low platelets and the patient not feeling well and there is a plan for a PET scan coming Friday. Follow up with hematology/oncology. 3. Pancytopenia secondary to colon cancer status post chemo, platelets are 45. We will monitor the labs. 4. Diabetes. Hold his home p.o. medications of Jardiance, Actos. Placed him on insulin sliding scale. Monitor the blood sugars. 5. Chronic pain. Continue his home pain medications. 6. Deep vein thrombosis prophylaxis, sequential compression devices. DISPOSITION: Admit to tele floor. Expect to discharge home and follow with family doctor. PT and OT prior to discharge. Social service to help with discharge planning. CODE STATUS: Full code as per my discussion with the patient and daughter. ANDREW
[2020-05-06 07:45] LABS: Hematocrit (blood only) 27.8 % (42-52); Hematocrit (blood only) 27.9 % (42-52); Hemoglobin 8.5 g/dL (14.0-18.0); Mean Corpuscular Hemoglobin 29.5 pg (25-34); Mean Corpuscular Hgb Conc 30.6 g/dL (32-36); Mean Corpuscular Volume 96.5 fL (80-100); RDW Coefficient of Variation 16.9 % (11.5-14.5); RDW Standard Deviation 59.6 fL (36.4-46.3); Red Blood Count 2.88 M/uL (4.7-6.1); White Blood Count 1.75 K/uL (4.8-10.8)
[2020-05-06 07:49] LABS: Mean Platelet Volume 9.1 fL (7.4-10.4); Platelet Count 41 K/uL (130-400)
[2020-05-06] MEDS: MoRPHine SULFATE CR 15 MG TABCR PO SCH ×2 (08:09→20:15)
[2020-05-06] MEDS: PANTOprazole 40 MG in SYRINGE 0 ML IV SCH ×2 (08:09→20:13)
[2020-05-06] MEDS: CYANOCOBALAMIN 500 MCG TABLET (VITAMIN B-12) PO SCH (08:10)
[2020-05-06] MEDS: HYOSCYAMINE SULFATE 0.125 MG TAB PO PRN (08:10)
[2020-05-06] MEDS: POTASSIUM CHLORIDE 10 MEQ TABCR PO SCH ×2 (08:11→20:13)
[2020-05-06 08:12] LABS: BUN Creatinine Ratio 17.6 (10-20); Calcium 8.7 mg/dl (8.5-10.1); Creatinine Clr Calc Pharmacy 135.1 ml/min; Est GFR (African American) 129.4; Est GFR (Non-African American) 111.6; Magnesium 1.8 mg/dl (1.8-2.4)
[2020-05-06] MEDS: INSULIN ASPART 100 UNITS/ML 3 ML PEN SC SCH ×4 (08:15→20:10)
[2020-05-06 08:22] LABS: Eosinophils # (auto) 0.03 K/uL (0-0.5); Eosinophils % (auto) 1.7 %; Immature Granulocytes # (auto) 0.01 K/uL (0.00-0.02); Immature Granulocytes % (auto) 0.6 %; Lymphocytes # (auto) 0.51 K/uL (1.2-3.4); Lymphocytes % (auto) 29.1 %; Monocytes # (auto) 0.19 K/uL (0.11-0.59); Monocytes % (auto) 10.9 %; Neutrophils # (auto) 1.01 K/uL (1.4-6.5); Neutrophils % (auto) 57.7 %
--- NOTE | 2020-05-06 08:24 | Electrocardiogram Report ---
Test Reason : Blood Pressure : / mmHG Vent. Rate : 079 BPM Atrial Rate : 079 BPM P-R Int : 180 ms QRS Dur : 078 ms QT Int : 376 ms P-R-T Axes : 005 -29 055 degrees QTc Int : 431 ms Poor data quality, interpretation may be adversely affected Normal sinus rhythm Old Anteroseptal infarct (cited on or before 01-APR-2020) Abnormal ECG When compared with ECG of 01-APR-2020 21:07, No significant change was found Confirmed by Fercho Forbes ([id number]) on 05/06/2020 8:24:10 AM Referred By: Chance Meraz Confirmed By:Fercho Forbes
[2020-05-06 08:50] LABS: Estimated Average Glucose 126 mg/dl
--- NOTE | 2020-05-06 08:57 | CT Scan Report ---
CT SCAN OF THE ABDOMEN AND PELVIS WITH IV CONTRAST CLINICAL HISTORY: Generalized abdominal pain. Hematochezia. Colon cancer. COMPARISON STUDY: Abdominal CT dated 02/11/2020. PET/CT dated 10/07/2018. TECHNIQUE: Following the IV administration of 93 cc of Optiray 320, CT scan of the abdomen and pelvi s is performed from the lung bases to the proximal femora. Images are reviewed in the axial, sagittal , and coronal planes. IV contrast was administered without complication. A dose lowering technique wa s utilized adhering to the principles of ALARA. CT DOSE: 633.42 mGy.cm FINDINGS: Lung bases: The heart is enlarged and without pericardial effusion. The coronary arteries are densely calcified. There is a small hiatal hernia. There are at least 5 subcentimeter pulmonary nodules at t he lung bases. The largest is at the left lung base and measures 8 mm as seen on image #51. No airspa ce consolidation or pleural effusion is identified. Esophageal varices are noted. Liver: The contrast-enhanced liver is normal in size and heterogeneous in attenuation. Nodularity of the hepatic surface contour suggests early change of cirrhosis. There is no intrahepatic biliary duct al dilatation. The hepatic veins and portal veins are patent. Gallbladder: There are calcified gallstones without CT evidence of acute cholecystitis. Spleen: The spleen is enlarged measuring 18.8 cm in length. Pancreas: Atrophic and grossly unremarkable. Adrenal glands: Unremarkable. Kidneys: There is asymmetric cortical atrophy of the left kidney as compared to the right. The kidney s enhance symmetrically. A 1.7 cm cyst is noted in the left kidney. There are least 2 nonobstructing left renal calculi which measure up to 9 mm. Abdominal vasculature: The abdominal aorta is normal in course and caliber noting mild to moderate at herosclerotic calcification. Bowel: There is moderate to severe constipation. No bowel obstruction is seen. The rectal wall is mar kedly thickened and edematous with perirectal infiltration. There is also a short segment of wall thi ckening and edema involving the descending colon. There is focal narrowing/stricturing of the descend ing colon on axial image #260. When correlated with the 10/07/2018 PET examination and this likely repr esents the site of the patient's colon cancer. Question mild wall thickening and hyperemia of the duo denum. The appendix is well-visualized and normal Peritoneum: There is no intraperitoneal free air or abdominal ascites. Lymphadenopathy: There are numerous mildly enlarged retroperitoneal lymph nodes which measure up to 1 .4 cm in length. Infiltration is seen throughout the retroperitoneum, and this likely represents ross tment related change. Pelvic viscera: The prostate gland is diminutive and heterogeneous. The bladder is normal as visualiz ed. Skeletal structures: The skeletal structures are osteopenic. Moderate lumbosacral spondylosis is obse rved. No lytic or blastic lesions are seen. IMPRESSION: 1. The rectal wall is markedly thickened and edematous and there is perirectal inflammation. Correlat e clinically for evidence of proctitis. Underlying rectal neoplasm is not excluded and correlation wi th the oncological history be required. 2. There is focal narrowing/stricture of the distal descending colon. When correlated with the previo us PET examination this likely corresponds to a site of primary colon cancer. 3. There is wall thickening and edema of the mid descending colon above this site. This is nonspecifi c and could represent an infectious/inflammatory colitis or could be treatment related. Clinical indigo elation will be required. 4. Question wall thickening and mucosal hyperemia of the duodenum. Correlate clinically for evidence of duodenitis. 5. Retroperitoneal lymphadenopathy and pulmonary metastases have modestly improved as compared to 02/10. 6. Cirrhotic liver morphology. 7. Marked splenomegaly and esophageal varices indicate portal hypertension. 8. Left-sided nephrolithiasis. 9. Cholelithiasis. 10. Cardiomegaly and hiatal hernia. 11. Moderate to severe constipation. 12. Additional findings as above. ACT 112: Negative or not required by law. Electronically signed by: Alton Gutierrez M.D. 05/06/2020 8:56 AM
--- NOTE | 2020-05-06 10:35 | Hospitalist Progress Note ---
Date of Service May 06, 2020 Assessment & Plan (1) GI bleed: -This 59-year-old male presents with rectal bleed when at home -as per admission note, " History of colon cancer. Was constipated. After stool suppository, had two large amounts of rectal bleed. Hemoglobin is 9.5, in the morning it was 10.5. CAT scan is also showing duodenitis. He has also some epigastric abdominal pain." -patient on IV Protonix b.i.d. -05/06/2020 daytime hospitalist exam: Patient seen and examined in the AM with IV fluids running and mild decrease in hemoglobin to 8.5. Patient not in distress. When asked about bowel movements, patient affirms blood with bowel movement at home and subsequently second bowel movement with blood overnight when patient in the medical telemetry diaz. -hold off IV fluids and monitor blood pressures, currently NPO while awaiting gastroenterology assessment -obtain CXR as there appears to crackles on lung auscultation Metastatic colon cancer Pancytopenia -status post surgery in the past -as outpatient, patient gets chemotherapy every two weeks -monitor the thrombocytopenia -holding off home oral iron supplements at this time while awaiting inpatient GI evaluation, will give IV venofer x 1 Chronic intermediate manager use of narcotic pain medications -may be contributory to GI bleed if straining with defection -can consider giving senna in future after inpatient GI evaluation Diabetes Mellitus Type II without intermediate manager current use of insulin -Hold home oral medications of Jardiance, Actos -Placed on insulin sliding scale, while monitoring the blood sugars Deep vein thrombosis prophylaxis, sequential compression devices. PT / OT evaluations, case management consult prior to discharge Admission and Anticipated Discharge Date Admission Date: May 06, 2020 Subjective 05/06/2020 Patient seen and examined in the AM with IV fluids running and mild decrease in hemoglobin to 8.5. Patient not in distress. When asked about bowel movements, patient affirms blood with bowel movement at home and subsequently second bowel movement with blood overnight when patient in the medical telemetry diaz. Patient able to sit up on exam. Patient denies other symptoms. no dizziness. no headache. no abdomen pain. no chest pain. no shortness of breath. breathing on room air. There appears to be some crackles on posterior lung auscultation Review of Systems Review of Systems: All systems reviewed & are unremarkable except as noted in Subjective Physical Exam Constitutional: cooperative and comfortable Eyes: PERRL, conjunctivae normal, anicteric sclerae EOM intact bilaterally ENMT: external ear and nose normal, oropharynx normal Neck: normal visual inspection Respiratory: normal respiratory effort Auscultation: + crackles Cardiovascular: Rate/Rhythm: regular rate and regular rhythm Gastrointestinal (Abdomen): normal bowel sounds, soft, nontender, no hepatosplenomegaly Musculoskeletal: Head/Neck/Chest: normocephalic and head atraumatic Neurologic: PERRL, EOMI, accommodation nl, no face palsy, no dysarthria CN' s II-XI intact bilaterally Psychiatric: A+Ox3, euthymic affect Results & Data Results & Data ([facility]) Vital Signs (Past 12 Hours) Vital Signs Temp Pulse Pulse Resp BP BP Pulse Ox 05/06/20 07:16 36.4 C L 90 19 108/69 99 05/06/20 04:22 37 C 90 16 118/77 100 05/06/20 04:00 83 18 100/61 97 05/06/20 03:00 97 H 18 115/75 97 05/06/20 02:08 87 18 127/70 99 05/06/20 01:05 76 16 109/65 99 05/05/20 23:46 37.1 C 98 H 16 115/79 100
[2020-05-06] MEDS ORDERED: MAGNESIUM SULFATE / D5W 1 GM/100 ML BAG IV ONE (11:00)
[2020-05-06] MEDS ORDERED: IRON SUCROSE 200 MG in 0.9 % SODIUM CHLORIDE 100 ML IV ONE (11:30)
--- NOTE | 2020-05-06 13:14 | XRay Report ---
SINGLE VIEW CHEST CLINICAL HISTORY: Abnormal physical examination. Crackles. FINDINGS: An AP, portable, upright chest radiograph is compared to study dated 04/01/2020 and correlat ed with chest CT dated 02/03/[address] performed the same day 05/06/2020. A left subclavia n central venous infusion port is unchanged in position. The heart is enlarged noting atherosclerotic calcification of the thoracic aorta. The pulmonary vasculature is noncongested. Chronic interstitial thickening is similar to previous. Scarring/atelectasis is noted at the lung bases. No airspace cons olidation or large pleural effusion is identified. Small pulmonary nodules seen by CT are not visible with x-ray. No pneumothorax is seen. The skeletal structures are osteopenic. The bony thorax is rubio sly intact. IMPRESSION: Cardiac enlargement with no acute cardiopulmonary abnormality. ACT 112: Negative or not required by law. Electronically signed by: Alton Gutierrez M.D. 05/06/2020 1:12 PM
[2020-05-06 13:36] LABS: Hematocrit (blood only) 27.9 % (42-52); Hemoglobin 8.6 g/dL (14.0-18.0)
--- NOTE | 2020-05-06 14:00 | Gastrointestinal Consultation ---
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 AVM vs. more likely 2/2 colon cancer, plan for colonoscopy to further evaluate and treat tomorrow morning at 9 am. recs: -golytely prep starting at 6 pm, finish by 2 am latest -NPO except for prep -colonoscopy 9 am tomorrow -supportive care, rest as per primary team Thank you for allowing me to participate in the care of this patient History of Present Illness Attending Physician: Mikey Wolfe MD 59 yo male with hx stage IV colon cancer s/p chemotherapy here with rectal bleeding. He has been having it for the past week, just finished his chemo last week. Has not had hematochezia for months before these episodes. Notes weakness and dizziness as well, denies syncope. Last colonoscopy was in 2018 when cancer was diagnosed. Had recent EGD in 12/2019 that was unremarkable. Hgb down to 8.6, VSS. Last episode of hematochezia was yesterday. Otherwise no significant issues at this time, has not had solid food for almost a week he says. labs reviewed. Allergies Allergy/AdvReac Type Severity Reaction Status Date / Time No Known Allergies Allergy Verified 05/06/20 00:33 Home Medications Home Medications Medication Instructions Recorded Confirmed Type pioglitazone [Actos] 30 mg PO QAM 04/18/18 05/06/20 History ferrous sulfate 325 mg PO Q2D 10/02/18 05/06/20 History Avastin 0 mg IV UD 08/13/19 05/06/20 History acetaminophen [Tylenol Extra 500 mg PO Q6H PRN 08/13/19 05/06/20 History Strength] Jardiance 10 mg PO QAM 08/31/19 05/06/20 History oxycodone-acetaminophen 1 tab PO Q6 PRN 12/27/19 05/06/20 History prochlorperazine maleate 10 mg PO AMHS 12/27/19 05/06/20 History [Compazine] cyanocobalamin (vitamin B-12) 500 mcg PO QAM 02/11/20 05/06/20 History [Vitamin B-12] diphenoxylate-atropine 1 tab PO QID PRN 02/11/20 05/06/20 History hyoscyamine sulfate [Levsin] 0.125 mg PO Q6H PRN 02/11/20 05/06/20 History irinotecan 0 mg IV UD 04/01/20 05/06/20 History morphine 15 mg PO Q12H 04/01/20 05/06/20 History omeprazole 20 mg PO QAM 04/01/20 05/06/20 History potassium chloride [Klor-Con M10] 10 meq PO BID 04/01/20 05/06/20 History ondansetron HCl 8 mg PO Q8 PRN 05/06/20 05/06/20 History Patient History Medical History (Updated 05/06/20 @ 10:40 by Mikey Wolfe MD) Anxiety C. difficile colitis hx ~2017. 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 Depression Diverticulitis of colon with perforation NO SURGERY DM type 2 (diabetes mellitus, type 2) Dyslipidemia Immunocompromised Kidney stones Obesity Osteoarthritis Pancytopenia Follows with heme Splenomegaly r/t chemotherapy Surgical History History of colonoscopy History of cystoscopy STONE REMOVAL WITH STENT PLACED History of esophagogastroduodenoscopy (EGD) History of tooth extraction History of vascular access device RIGHT UPPER CHEST PLACED 09/2018 Hx of hernia repair Hx of tonsillectomy Family History Mother , Age 62 Breast cancer Father , Age 62 Stroke Sister Family history of diabetes mellitus Brother Family history of diabetes mellitus Brother Family history of diabetes mellitus Other No family history of adverse response to anesthesia Social History Smoking Status: Former smoker Tobacco Type: Cigarettes Second Hand Exposure: Yes (sometimes); Do You Dip or Chew Tobacco: No; Hx Alcohol Use: No Hx Substance Use: Yes Preferred Language: Portuguese Communication Ability: Effective Visual Impairment: No Limitations [employer] Operator Required: No Beliefs That Will Affect Care: None Current Living Situation: Family Current Living Situation Comment: daughter lives with patient Other Information That Helps Us Care for You: No Feels Safe at Home: Yes Safety Concerns: Feels Safe At This Time Assistive Devices: None Review of Systems Constitutional: no fever, no chills and no weight loss Eyes: as per Subjective / HPI Ear, Nose, Mouth, Throat: as per Subjective / HPI Respiratory: no dyspnea and no dyspnea on exertion Cardiovascular: no chest pain and no palpitations Gastrointestinal: as per Subjective / HPI Musculoskeletal: no joint pain and no swelling Integumentary: no rash and no lesions Neurologic: no numbness and no paresthesia Psychiatric: no depression and no anxiety Endocrine: no fatigue Hematologic / Lymphatic: no easy bleeding and no easy bruising Physical Exam Constitutional: WD/WN, vitals as above Eyes: EOM intact bilaterally Neck: normal visual inspection Respiratory: normal respiratory effort, lungs clear to auscultation Cardiovascular: RRR, no murmur, no edema Gastrointestinal (Abdomen): Inspection/Auscultation: abdomen normal to inspection; abdomen not distended Percussion/Palpation: abdomen soft; abdomen nontender and no hepatosplenomegaly Musculoskeletal: Extremities: no cyanosis Gait: normal gait Skin: no rashes, warm and dry Neurologic: moves all extremities Psychiatric: A+Ox3, euthymic affect Results & Data ([facility]) Vital Signs (Past 12 Hours) Vital Signs Temp Pulse Pulse Resp BP BP Pulse Ox 05/06/20 12:06 36.4 C L 83 18 106/71 100 05/06/20 07:16 36.4 C L 90 19 108/69 99 05/06/20 04:22 37 C 90 16 118/77 100 05/06/20 04:00 83 18 100/61 97 05/06/20 03:00 97 H 18 115/75 97 05/06/20 02:08 87 18 127/70 99 PG Care Time/CCT Total # of Minutes Spent Total Time Spent with Patient: Total time spent is greater than 50% in coordination of care (as documented) at patient's floor/unit and/or counseling patient: Coding Level of Care Code 98029 Inpt Consult Level 4 Diagnoses Colon cancer metastasized to intrathoracic lymph node C18.9; C77.1 Acute lower GI bleeding K92.2
[2020-05-06] MEDS: LAVAGE SOLUTION 4000ML PO SCH (18:42)
[2020-05-07] MEDS ORDERED: HEPARIN 100 UNIT/ML 5ML FLUSH FLUSH PRN (01:04)
[2020-05-07 01:17] LABS: Albumin Level 2.8 gm/dl (3.4-5.0); BUN Creatinine Ratio 14.1 (10-20); Calcium 8.7 mg/dl (8.5-10.1); Creatinine Clr Calc Pharmacy 120.1 ml/min; Est GFR (African American) 123.3; Est GFR (Non-African American) 106.4; Potassium 3.8 mmol/L (3.5-5.1)
[2020-05-07 01:19] LABS: Albumin Globulin Ratio 0.7 (0.9-2); Bilirubin,Total 0.7 mg/dl (0.2-1); Globulin 3.8 gm/dl (2.5-4.0); Total Protein 6.6 gm/dl (6.4-8.2)
[2020-05-07 01:21] LABS: Hematocrit (blood only) 31.2 % (42-52); Hemoglobin 9.8 g/dL (14.0-18.0); Mean Corpuscular Hemoglobin 30.3 pg (25-34); Mean Corpuscular Hgb Conc 31.4 g/dL (32-36); Mean Corpuscular Volume 96.6 fL (80-100); Mean Platelet Volume 10.1 fL (7.4-10.4); Platelet Count 67 K/uL (130-400); RDW Coefficient of Variation 17.2 % (11.5-14.5); RDW Standard Deviation 60.5 fL (36.4-46.3); Red Blood Count 3.23 M/uL (4.7-6.1); White Blood Count 3.44 K/uL (4.8-10.8)
[2020-05-07 01:23] LABS: Eosinophils # (auto) 0.05 K/uL (0-0.5); Eosinophils % (auto) 1.5 %; Immature Granulocytes # (auto) 0.01 K/uL (0.00-0.02); Immature Granulocytes % (auto) 0.3 %; Lymphocytes % (auto) 23.3 %; Monocytes # (auto) 0.37 K/uL (0.11-0.59); Monocytes % (auto) 10.8 %; Neutrophils # (auto) 2.21 K/uL (1.4-6.5); Neutrophils % (auto) 64.1 %; RBC Morphology Unremarkable
[2020-05-07] MEDS: LAVAGE SOLUTION 4000ML PO SCH (03:27)
--- NOTE | 2020-05-07 07:35 | Anesthesiology Consultation ---
Date of Service May 07, 2020 Assessment & Plan (1) Encounter for pre-operative examination: Chart Review Chart Review: Acceptable Risk for Surgery History Surgery Operation Date: 05/07/20 09:30 Proposed Procedures p Colonoscopy - Kash Law MD Height/Weight Height: 5 ft 6 in Weight: 76.4 kg Allergies Allergy/AdvReac Type Severity Reaction Status Date / Time No Known Allergies Allergy Verified 05/06/20 00:33 Medications Home Medications Medication Instructions Recorded Confirmed Last Taken pioglitazone [Actos] 30 mg PO QAM 04/18/18 05/06/20 05/05/20 ferrous sulfate 325 mg PO Q2D 10/02/18 05/06/20 05/05/20 Avastin 0 mg IV UD 08/13/19 05/06/20 11/24/19 acetaminophen [Tylenol Extra 500 mg PO Q6H PRN 08/13/19 05/06/20 08/13/19 06:30 Strength] 1000 mg Jardiance 10 mg PO QAM 08/31/19 05/06/20 05/05/20 oxycodone-acetaminophen 1 tab PO Q6 PRN 12/27/19 05/06/20 03/31/20 prochlorperazine maleate 10 mg PO AMHS 12/27/19 05/06/20 05/05/20 [Compazine] cyanocobalamin (vitamin B-12) 500 mcg PO QAM 02/11/20 05/06/20 05/05/20 [Vitamin B-12] diphenoxylate-atropine 1 tab PO QID PRN 02/11/20 05/06/20 04/01/20 hyoscyamine sulfate [Levsin] 0.125 mg PO Q6H PRN 02/11/20 05/06/20 05/05/20 irinotecan 0 mg IV UD 04/01/20 05/06/20 Unknown morphine 15 mg PO Q12H 04/01/20 05/06/20 05/05/20 omeprazole 20 mg PO QAM 04/01/20 05/06/20 05/05/20 potassium chloride [Klor-Con M10] 10 meq PO BID 04/01/20 05/06/20 05/05/20 ondansetron HCl 8 mg PO Q8 PRN 05/06/20 05/06/20 Unknown Active Medications Generic Name Dose Route Start Last Admin Trade Name Freq PRN Reason Stop Dose Admin Cyanocobalamin 500 mcg 05/06/20 09:00 05/06/20 08:10 Cyanocobalamin 500 Mcg Tablet (Vitamin B-12) PO 06/05/20 08:59 500 mcg QAM LUIS Administration Hyoscyamine 0.125 mg 05/06/20 04:34 05/06/20 08:10 Hyoscyamine Sulfate 0.125 Mg Tab PO 06/05/20 04:33 0.125 mg Q6H PRN Administration CRAMPING Pantoprazole Sodium 40 mg/ 10 mls @ 5 mls/min 05/06/20 09:00 05/06/20 20:13 Syringe IV 06/05/20 08:59 5 mls/min BID LUIS Administration Insulin Aspart 0 units 05/06/20 07:30 05/06/20 20:10 Insulin Aspart 100 Units/Ml 3 Ml Pen SC 06/05/20 07:29 1 units ACHS LUIS Administration Morphine Sulfate 15 mg 05/06/20 09:00 05/06/20 20:15 Morphine Sulfate Cr 15 Mg Tabcr PO 05/20/20 08:59 15 mg Q12H LUIS Administration Potassium Chloride 10 meq 05/06/20 09:00 05/06/20 20:13 Potassium Chloride 10 Meq Tabcr PO 06/05/20 08:59 10 meq BID LUIS Administration Past Medical History Medical History Anxiety C. difficile colitis hx ~2018. 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 Depression Diverticulitis of colon with perforation NO SURGERY DM type 2 (diabetes mellitus, type 2) Dyslipidemia Immunocompromised Kidney stones Obesity Osteoarthritis Pancytopenia Follows with heme Splenomegaly r/t chemotherapy Past Family History Family History Mother , Age 62 Breast cancer Father , Age 62 Stroke Sister Family history of diabetes mellitus Brother Family history of diabetes mellitus Brother Family history of diabetes mellitus Other No family history of adverse response to anesthesia Past Surgical History Surgical History History of colonoscopy History of cystoscopy STONE REMOVAL WITH STENT PLACED History of esophagogastroduodenoscopy (EGD) History of tooth extraction History of vascular access device RIGHT UPPER CHEST PLACED 09/2018 Hx of hernia repair Hx of tonsillectomy Social History Smoking Status: Former smoker tobacco type: cigarettes Do You Dip or Chew Tobacco: No Hx Alcohol Use: No Hx Substance Use: Yes substance use type: opiates Physical Exam Vital Signs Last Vital Signs Temp 36.6 C 05/07/20 07:06 Pulse 93 H 05/07/20 07:06 Resp 18 05/07/20 07:06 BP 115/78 05/07/20 07:06 Pulse Ox 100 05/07/20 07:06 Testing Laboratory Results 05/07/20 00:45 05/07/20 00:45 PT 11.5 Seconds (9.0-12.0) 05/05/20 23:55 INR 1.1 (0.9-1.1) 05/05/20 23:55 APTT 61.8 Seconds (21.0-31.0) H* 05/05/20 23:55 Hemoglobin A1c 6.0 % (4.5-5.6) H 05/06/20 07:27 Blood Type A Positive 05/05/20 23:55 Antibody Screen NEGATIVE 05/05/20 23:55 05/07/20 07:23 POC Glucose 147 H
--- NOTE | 2020-05-07 07:43 | History & Physical Bridge Note ---
Date of Service May 07, 2020 History & Physical Bridge Note I have examined the patient, reviewed the History & Physical and in the interval since the performance of the History & Physical I have noted the following changes of clinical significance: no changes noted proceed with colonoscopy. risks/benefits and procedure discussed with patient, who agrees to proceed
[2020-05-07] MEDS: POTASSIUM CHLORIDE 10 MEQ TABCR PO SCH ×2 (08:02→20:18)
[2020-05-07] MEDS: MoRPHine SULFATE CR 15 MG TABCR PO SCH ×2 (08:02→20:20)
[2020-05-07] MEDS: PANTOprazole 40 MG in SYRINGE 0 ML IV SCH ×2 (08:03→20:18)
[2020-05-07] MEDS: INSULIN ASPART 100 UNITS/ML 3 ML PEN SC SCH ×4 (08:03→20:39)
[2020-05-07] MEDS: CYANOCOBALAMIN 500 MCG TABLET (VITAMIN B-12) PO SCH (08:03)
[2020-05-07] MEDS: HYOSCYAMINE SULFATE 0.125 MG TAB PO PRN (08:03)
[2020-05-07] MEDS ORDERED: ATROPINE SULFATE 0.1 MG/ML 10ML SYR IV PRN (08:43)
[2020-05-07] MEDS ORDERED: ONDANSETRON INJ 2 MG/ML 2 ML VIAL IV PRN (08:43)
[2020-05-07] MEDS ORDERED: FERROUS SULFATE 325 MG TAB PO SCH (09:00)
[2020-05-07] MEDS ORDERED: PROPOFOL IV EMULSION 10 MG/ML 20 ML VIAL IV ONE ×2 (09:06→09:32)
[2020-05-07] MEDS ORDERED: LIDOCAINE HCL 2% 2 ML VIAL/AMP(20MG/ML) INFIL ONE (09:06)
--- NOTE | 2020-05-07 09:31 | GI REPORT ---
Patient Name: Diogo Acosta Procedure Date: 05/07/2020 8:40 AM Date of : 1960 Admit Type: Inpatient Age: 59 Gender: Male Attending MD: Kash Law MD Procedure: Colonoscopy Providers: Kash Law MD Referring MD: Chance Meraz Indications: Hematochezia Medicines: Monitored Anesthesia Care Complications: No immediate complications. Estimated blood loss: None. Estimated Blood Loss: Estimated blood loss: none. Procedure: Pre-Anesthesia Assessment: - Prior Anticoagulants: The patient has taken no previous anticoagulant or antiplatelet agents. - ASA Grade Assessment: III - A patient with severe systemic disease. After I obtained informed consent, the scope was passed under direct vision. Throughout the procedure, the patient's blood pressure, pulse, and oxygen saturations were monitored continuously. The scope was introduced through the anus with the intention of advancing to the cecum. The scope was advanced to the descending colon before the procedure was aborted. Medications were given. The colonoscopy was performed without difficulty. The patient tolerated the procedure well. The quality of the bowel preparation was poor. Findings: A fungating, infiltrative and ulcerated, friable partially obstructing large mass was found in the descending colon. The mass was circumferential. Biopsies were taken with a cold forceps for histology. Estimated blood loss: none. There was a pinpoint stricture caused by the mass at this area, about 70 cm from the anal verge, where the previous tattoo had been placed. Bleeding on contact was noted. Non-bleeding internal hemorrhoids were found. The hemorrhoids were medium-sized. A moderate amount of stool was found in the sigmoid colon, making visualization difficult. Impression: - Preparation of the colon was poor. - Malignant partially obstructing tumor in the descending colon. Biopsied. - Non-bleeding internal hemorrhoids. - Stool in the sigmoid colon. Recommendation: - Return patient to hospital [facility] for ongoing care. - diet as tolerated -hematochezia likely from malignancy -supportive care, treatment of malignancy as per oncology - Await pathology results. Kash Law MD 05/07/2020 9:30:31 AM This report has been signed electronically. Note Initiated On: 05/07/2020 8:40 AM Number of Addenda: 0 I attest to the content of the Intraoperative Record and orders documented therein, exceptions below {[id number]}
--- NOTE | 2020-05-07 09:37 | Anesthesiology Progress Note ---
Date of Service May 07, 2020 Anesthesia Post Procedure Vital Signs Vital Signs: Temp Pulse Pulse Pulse Resp BP Pulse Ox 05/07/20 09:30 76 16 105/69 98 05/07/20 09:24 36.3 C L 79 16 103/73 99 05/07/20 07:06 36.6 C 93 H 18 115/78 100 05/07/20 03:58 36.5 C 110 H 18 132/82 98 05/07/20 00:00 95 H 05/06/20 23:22 36.4 C L 85 18 111/71 99 05/06/20 18:57 36.7 C 86 18 110/69 98 05/06/20 17:00 108 H 05/06/20 15:13 36.6 C 82 17 103/68 99 05/06/20 12:06 36.4 C L 83 18 106/71 100 Pain Intensity Generalized: Pain Intensity: 7 Transfer of Care Handoff Completed per policy Notes Mental Status: alert / awake / arousable Patient Amnestic to Procedure: Yes Nausea / Vomiting: adequately controlled Pain: adequately controlled Airway Patency, RR, SpO2: stable & adequate BP & HR: stable & adequate Hydration State: stable & adequate Anesthetic Complications: no major complications apparent
--- NOTE | 2020-05-07 10:11 | Procedure Note ---
Procedure Note Date of Service May 07, 2020 GI post op/brief procedure note colonoscopy findings: colonic mass with stricture at 70 cm, friable, likely cause of bleeding. biopsied. medium int hemorrhoids, nonbleeding. poor prep Recs: diet as tolerated f/u path results treatment of malignancy as per oncology Kash Law MD Gastroenterology Coding
--- NOTE | 2020-05-07 11:06 | Hospitalist Progress Note ---
Date of Service May 07, 2020 Assessment & Plan (1) GI bleed: -This 59-year-old male presents with rectal bleed when at home -as per admission note, " History of colon cancer. Was constipated. After stool suppository, had two large amounts of rectal bleed. Hemoglobin is 9.5, in the morning it was 10.5. CAT scan is also showing duodenitis. He has also some epigastric abdominal pain." -patient on IV Protonix b.i.d. -05/06/2020 daytime hospitalist exam: Patient seen and examined in the AM with IV fluids running and mild decrease in hemoglobin to 8.5. Patient not in distress. When asked about bowel movements, patient affirms blood with bowel movement at home and subsequently second bowel movement with blood overnight when patient in the medical telemetry [facility]. -05/07/2020: Hgb stable. Patient returns from colonoscopy on 05/07/[address] Kash Law who saw "colonic mass with stricture at 70 cm, friable, likely cause of bleeding. biopsied. medium int hemorrhoids, nonbleeding. poor prep" Metastatic colon cancer Pancytopenia -status post surgery in the past. as outpatient, patient gets chemotherapy every two weeks -given IV venofer x 1 on 05/06/2020, will resume home dose iron supplements starting on 05/07/2020 -monitor Hgb and platelets -hospitalist discussed with Dr. Chance Meraz about the 05/07/2020 colonoscopy findings, whom patient follows for chemotherapy of the stage IV cancer. Dr. Meraz reports that there were no plans for colorectal surgery evaluation given that patient's cancer had metastasized. Dr. Meraz did suggest asking gastroenterology service whether patient can benefit from a gastrointestinal stenting to prevent bowel obstruction. 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 PT / OT evaluations, case management consult Admission and Anticipated Discharge Date Admission Date: May 06, 2020 Subjective Patient returns from colonoscopy on 05/07/[address] Kash Law who saw "colonic mass with stricture at 70 cm, friable, likely cause of bleeding. biopsied. medium int hemorrhoids, nonbleeding. poor prep" Discussed with Dr. Chance Meraz about the findings, whom patient follows for chemotherapy of the stage IV cancer. Dr. Meraz reports that there were no plans for colorectal surgery evaluation given that patient's cancer had metastasized. Dr. Meraz did suggest asking gastroenterology service whether patient can benefit from a gastrointestinal stenting to prevent bowel obstruction. Hospitalist discussed this suggestion with Dr Law and he plans to discuss with [facility] gastroenterology team Patient does not have acute abdomen pain. no chest pain. breathing on room air. no dizziness. no headache. no nausea. denies other symptoms Review of Systems Review of Systems: All systems reviewed & are unremarkable except as noted in Subjective Physical Exam Constitutional: cooperative and comfortable Eyes: PERRL, conjunctivae normal, anicteric sclerae EOM intact bilaterally ENMT: external ear and nose normal, oropharynx normal Neck: normal visual inspection Respiratory: normal respiratory effort, lungs clear to auscultation Cardiovascular: Rate/Rhythm: regular rate and regular rhythm Gastrointestinal (Abdomen): normal bowel sounds, soft, nontender, no hepatosplenomegaly Musculoskeletal: Head/Neck/Chest: normocephalic and head atraumatic Neurologic: PERRL, EOMI, accommodation nl, no face palsy, no dysarthria CN's II-XI intact bilaterally Psychiatric: A+Ox3, euthymic affect Results & Data Results & Data ([facility]) Vital Signs (Past 12 Hours) Vital Signs Temp Pulse Pulse Pulse Resp BP Pulse Ox 05/07/20 10:09 36.5 C 88 16 110/77 99 05/07/20 09:40 36.4 C L 84 16 116/75 98 05/07/20 09:30 76 16 105/69 98 05/07/20 09:24 36.3 C L 79 16 103/73 99 05/07/20 07:06 36.6 C 93 H 18 115/78 100 05/07/20 03:58 36.5 C 110 H 18 132/82 98 05/07/20 00:00 95 H
[2020-05-07] MEDS: SENNA 8.6 MG TAB PO SCH (16:12)
[2020-05-08 06:51] LABS: Hematocrit (blood only) 25.2 % (42-52); Hemoglobin 7.8 g/dL (14.0-18.0); Mean Corpuscular Volume 96.9 fL (80-100); RDW Coefficient of Variation 17.3 % (11.5-14.5); White Blood Count 1.27 K/uL (4.8-10.8)
[2020-05-08 06:54] LABS: Mean Platelet Volume 9.3 fL (7.4-10.4); Platelet Count 52 K/uL (130-400)
[2020-05-08 07:33] LABS: Eosinophils # (auto) 0.04 K/uL (0-0.5); Eosinophils % (auto) 3.1 %; Lymphocytes # (auto) 0.59 K/uL (1.2-3.4); Lymphocytes % (auto) 46.5 %; Monocytes # (auto) 0.11 K/uL (0.11-0.59); Monocytes % (auto) 8.7 %; Neutrophils # (auto) 0.53 K/uL (1.4-6.5); Neutrophils % (auto) 41.7 %
[2020-05-08] MEDS: INSULIN ASPART 100 UNITS/ML 3 ML PEN SC SCH ×4 (08:27→20:41)
[2020-05-08] MEDS: POTASSIUM CHLORIDE 10 MEQ TABCR PO SCH ×2 (08:28→20:43)
[2020-05-08] MEDS: CYANOCOBALAMIN 500 MCG TABLET (VITAMIN B-12) PO SCH (08:28)
[2020-05-08] MEDS: SENNA 8.6 MG TAB PO SCH (08:28)
[2020-05-08] MEDS: PANTOprazole 40 MG in SYRINGE 0 ML IV SCH ×2 (08:28→21:00)
[2020-05-08] MEDS: MoRPHine SULFATE CR 15 MG TABCR PO SCH ×2 (08:30→20:43)
[2020-05-08] MEDS ORDERED: FERROUS SULFATE 325 MG TAB PO SCH (09:00)
--- NOTE | 2020-05-08 11:26 | Hospitalist Progress Note ---
Date of Service May 08, 2020 Assessment & Plan (1) GI bleed: -This 59-year-old male presents with rectal bleed when at home -as per admission note, " History of colon cancer. Was constipated. After stool suppository, had two large amounts of rectal bleed. Hemoglobin is 9.5, in the morning it was 10.5. CAT scan is also showing duodenitis. He has also some epigastric abdominal pain." -patient on IV Protonix b.i.d. -05/06/2020 daytime hospitalist exam: Patient seen and examined in the AM with IV fluids running and mild decrease in hemoglobin to 8.5. Patient not in distress. When asked about bowel movements, patient affirms blood with bowel movement at home and subsequently second bowel movement with blood overnight when patient in the medical telemetry [facility]. 05/06/2020 CXR: IMPRESSION: Cardiac enlargement with no acute cardiopulmonary abnormality. -05/07/2020: Hgb stable. Patient returns from colonoscopy on 05/07/[address] Kash Law who saw "colonic mass with stricture at 70 cm, friable, likely cause of bleeding. biopsied. medium int hemorrhoids, nonbleeding. poor prep" Metastatic colon cancer Pancytopenia due to chemotherapy, cancer, and GI bleeding all in setting of colon cancer -status post surgery in the past. as outpatient, patient gets chemotherapy every two weeks -given IV venofer x 1 on 05/06/2020, will resume home dose iron supplements starting on 05/07/2020 -monitor Hgb and platelets -hospitalist discussed with Dr. Chance Meraz about the 05/07/2020 colonoscopy findings, whom patient follows for chemotherapy of the stage IV cancer. Dr. Meraz reports that there were no plans for colorectal surgery evaluation given that patient's cancer had metastasized. Dr. Meraz did suggest asking gastroenterology service whether patient can benefit from a gastrointestinal stenting to prevent bowel obstruction. Hospitalist discussed this suggestion with Dr Law and he plans to discuss with [facility] gastroenterology team -05/08/2020: no further bleeding per rectum noted since 05/06/2020. However, patient's WBC down to 1.27 and Hgb down to 7.8 and platelets down to 52K. unclear whether this is dilutional versus further pancytopenia. patient is afebrile. [facility] Gastroenterology team recommends to check for negative C.difficile test before considering any GI stent in colon. Patient is also undecided whether he wants the procedure. He will discuss further with his daughter. Patient denies abdomen pain, denies any chest pain, or dizziness, or shortness of breath. on room air. 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 PT / OT evaluations, case management consult Admission and Anticipated Discharge Date Admission Date: May 06, 2020 Subjective -05/08/2020: no further bleeding per rectum noted since 05/06/2020. However, patient's WBC down to 1.27 and Hgb down to 7.8 and platelets down to 52K. unclear whether this is dilutional versus further pancytopenia. patient is afebrile. [facility] Gastroenterology team recommends to check for negative C.difficile test before considering any GI stent in colon. Patient is also undecided whether he wants the procedure. He will discuss further with his daughter. Patient denies abdomen pain, denies any chest pain, or dizziness, or shortness of breath. on room air. he denies other symptoms Review of Systems Review of Systems: All systems reviewed & are unremarkable except as noted in Subjective Physical Exam Constitutional: cooperative and comfortable Eyes: PERRL, conjunctivae normal, anicteric sclerae EOM intact bilaterally ENMT: external ear and nose normal, oropharynx normal Neck: normal visual inspection Respiratory: normal respiratory effort, lungs clear to auscultation normal respiratory effort Cardiovascular: Rate/Rhythm: regular rate and regular rhythm Gastrointestinal (Abdomen): normal bowel sounds, soft, nontender, no hepatosplenomegaly Musculoskeletal: Head/Neck/Chest: normocephalic and head atraumatic Neurologic: PERRL, EOMI, accommodation nl, no face palsy, no dysarthria CN's II-XI intact bilaterally Psychiatric: A+Ox3, euthymic affect Results & Data Results & Data ([facility]) Vital Signs (Past 12 Hours) Vital Signs Temp Pulse Resp BP Pulse Ox 05/08/20 07:07 36.3 C L 67 18 94/57 L 97 05/08/20 04:14 36.7 C 67 18 94/57 L 97
--- NOTE | 2020-05-08 12:30 | Gastroenterology Progress Note ---
Date of Service May 08, 2020 Assessment & Plan (1) Colon cancer metastasized to intrathoracic lymph node: Partially obstructing descending colon adenocarcinoma. Able to tolerated clear liquids po, abd less distended today, passing liquid BMs. Gentle, slow colonoscopy prep today. Stop if causes nausea/vomiting or distention. Colonoscopy tomorrow by Dr. Adame to place a palliative colon stent to prevent complete obstruction. He is unfortunately leukopenic (1.2) and thrombocytopenic (52), likely secondary to chemo. Will check tomorrow before going forward with an invasive procedure. Will recheck CBC tomorrow. Present on Admission?: Yes (2) Acute lower GI bleeding: From the tumor and currently not hemodynamically significant. This will likely continue. Present on Admission?: Yes Admission and Anticipated Discharge Date Admission Date: May 06, 2020 Supervising Physician Co-Signing Physician Notes I have personally seen and examined the patient with TALIA Rodriguez on 05/08/2020. Her note reflects my exam and findings. I agree with her impression and plan. Check C. diff. Patient with high grade near obstructing colon CA. He wants to pursue STENT. Mykel Coulter M.D. Subjective A 59-year-old male 59 yr old male with adenomatous stage IV colon cancer(mets to lymph and lungs) on chemotherapy who presented 05/06/20 for abd pain and constipation. Has been on a liquid diet at home. Colonoscopy yesterday with nearly obstructing descending colon lesion. CT with focal narrowing/stricturing of the distal descending colon. Now passing liquid BMs. Abd less distended today. No vomiting today. Review of Systems Review of Systems: ROS: Gen: + weakness, +weight loss no fevers Eyes: No eye redness, or pain, no recent vision changes Resp: No SOB, no cough Cardio: No palpitations/irregular beats, no chest pain GI: Abd pain : Denies pain on urination Skin: No jaundice, itching or new rashes Physical Exam Constitutional: WD/WN, vitals as above Eyes: PERRL, conjunctivae normal, anicteric sclerae ENMT: external ear and nose normal, oropharynx normal Neck: trachea midline, no thyromegaly Respiratory: normal respiratory effort, lungs clear to auscultation Cardiovascular: RRR, no murmur, no edema Gastrointestinal (Abdomen): Percussion/Palpation: + abdomen tender (Rt mid and lower abd tenderness) and abdomen soft hypoactive BS Musculoskeletal: no cyanosis or clubbing, extremities motor strength 5/5 Skin: no rashes, warm and dry no jaundice Neurologic: PERRL, EOMI, accommodation nl, no face palsy, no dysarthria Lymphatic: no cervical or axillary lymphadenopathy Results & Data ([facility]) Vital Signs (Past 12 Hours) Vital Signs Temp Pulse Resp BP Pulse Ox 05/08/20 11:40 36.5 C 73 19 104/64 98 05/08/20 07:07 36.3 C L 67 18 94/57 L 97 05/08/20 04:14 36.7 C 67 18 94/57 L 97 Laboratory Results Labs: WBC 1.2, Hb 7.8, Hct 35, platelets 52, glucose 136. Yesterday's labs: Na 139, K 3.8, BUN 9, Cr 0.6. Diagnostic Findings CT abd/pelvis 05/06/20: 1. The rectal wall is markedly thickened and edematous and there is perirectal inflammation. Correlate clinically for evidence of proctitis. Underlying rectal neoplasm is not excluded and correlation with the oncological history be required. 2. There is focal narrowing/stricture of the distal descending colon. When correlated with the previous PET examination this likely corresponds to a site of primary colon cancer. 3. There is wall thickening and edema of the mid descending colon above this site. This is nonspecific and could represent an infectious/inflammatory colitis or could be treatment related. Clinical correlation will be required. 4. Question wall thickening and mucosal hyperemia of the duodenum. Correlate clinically for evidence of duodenitis. 5. Retroperitoneal lymphadenopathy and pulmonary metastases have modestly improved as compared to 02/11/2020. 6. Cirrhotic liver morphology. 7. Marked splenomegaly and esophageal varices indicate portal hypertension. 8. Left-sided nephrolithiasis. 9. Cholelithiasis. 10. Cardiomegaly and hiatal hernia. 11. Moderate to severe constipation. 12. Additional findings as above.
--- NOTE | 2020-05-08 15:16 | Communication Note ---
Date of Service: May 08, 2020 patient/patient's daughter expresses concern of risks and benefits of colonic stent. stool for C.difficile not yet collected. will need to re-evaluate the Hgb and platelets in case any prior transfusions before a procedure. discussed with gastroenterology BRIM BLOCKER for re-evaluation tomorrow before considering colonoscopy for colonic stent
[2020-05-08 15:31] LABS: Hematocrit (blood only) 27.8 % (42-52); Hemoglobin 8.7 g/dL (14.0-18.0); Mean Corpuscular Hemoglobin 30.3 pg (25-34); Mean Corpuscular Hgb Conc 31.3 g/dL (32-36); Mean Corpuscular Volume 96.9 fL (80-100); RDW Coefficient of Variation 17.2 % (11.5-14.5); RDW Standard Deviation 61.2 fL (36.4-46.3); Red Blood Count 2.87 M/uL (4.7-6.1); White Blood Count 1.63 K/uL (4.8-10.8)
[2020-05-08 15:36] LABS: Mean Platelet Volume 8.7 fL (7.4-10.4); Platelet Count 44 K/uL (130-400)
--- NOTE | 2020-05-08 15:40 | Anesthesiology Consultation ---
Date of Service May 08, 2020 Assessment & Plan (1) Encounter for pre-operative examination: Chart Review Chart Review: Acceptable Risk for Surgery and Patient NOT seen in Pre Admission Testing Patient had colonoscopy done 05/07/2020 with sedation and no issues. Colonoscopy to be done 05/09/2020 for partially obstructing descending colon adenocarcinoma. Colonoscopy is to place a palliative colon stent to prevent complete obstruction. Patient has distended abdomen but it passing liquid BMs. Consults Requested none covid negative 05/06/3030. History Surgery Operation Date: 05/07/20 09:30 Proposed Procedures p Colonoscopy - Kash Law MD Operation Date: 05/09/20 07:00 Proposed Procedures p Colonoscopy - Lexa Adame DO Height/Weight Height: 5 ft 6 in Weight: 76.2 kg Allergies Allergy/AdvReac Type Severity Reaction Status Date / Time No Known Allergies Allergy Verified 05/06/20 00:33 Medications Home Medications Medication Instructions Recorded Confirmed Last Taken pioglitazone [Actos] 30 mg PO QAM 04/18/18 05/06/20 05/05/20 ferrous sulfate 325 mg PO Q2D 10/02/18 05/06/20 05/05/20 Avastin 0 mg IV UD 08/13/19 05/06/20 11/24/19 acetaminophen [Tylenol Extra 500 mg PO Q6H PRN 08/13/19 05/06/20 08/13/19 06:30 Strength] 1000 mg Jardiance 10 mg PO QAM 08/31/19 05/06/20 05/05/20 oxycodone-acetaminophen 1 tab PO Q6 PRN 12/27/19 05/06/20 03/31/20 prochlorperazine maleate 10 mg PO AMHS 12/27/19 05/06/20 05/05/20 [Compazine] cyanocobalamin (vitamin B-12) 500 mcg PO QAM 02/11/20 05/06/20 05/05/20 [Vitamin B-12] diphenoxylate-atropine 1 tab PO QID PRN 02/11/20 05/06/20 04/01/20 hyoscyamine sulfate [Levsin] 0.125 mg PO Q6H PRN 02/11/20 05/06/20 05/05/20 irinotecan 0 mg IV UD 04/01/20 05/06/20 Unknown morphine 15 mg PO Q12H 04/01/20 05/06/20 05/05/20 omeprazole 20 mg PO QAM 04/01/20 05/06/20 05/05/20 potassium chloride [Klor-Con M10] 10 meq PO BID 04/01/20 05/06/20 05/05/20 ondansetron HCl 8 mg PO Q8 PRN 05/06/20 05/06/20 Unknown Active Medications Generic Name Dose Route Start Last Admin Trade Name Freq PRN Reason Stop Dose Admin Cyanocobalamin 500 mcg 05/06/20 09:00 05/08/20 08:28 Cyanocobalamin 500 Mcg Tablet (Vitamin B-12) PO 06/05/20 08:59 500 mcg QAM LUIS Administration Ferrous Sulfate 325 mg 05/08/20 09:00 05/08/20 08:28 Ferrous Sulfate 325 Mg Tab PO 06/07/20 08:59 325 mg Q2D@0900 LUIS Administration Hyoscyamine 0.125 mg 05/06/20 04:34 05/07/20 08:03 Hyoscyamine Sulfate 0.125 Mg Tab PO 06/05/20 04:33 0.125 mg Q6H PRN Administration CRAMPING Pantoprazole Sodium 40 mg/ 10 mls @ 5 mls/min 05/06/20 09:00 05/08/20 08:28 Syringe IV 06/05/20 08:59 5 mls/min BID LUIS Administration Insulin Aspart 0 units 05/06/20 07:30 05/08/20 12:02 Insulin Aspart 100 Units/Ml 3 Ml Pen SC 06/05/20 07:29 Not Given ACHS LUIS Morphine Sulfate 15 mg 05/06/20 09:00 05/08/20 08:30 Morphine Sulfate Cr 15 Mg Tabcr PO 05/20/20 08:59 15 mg Q12H LUIS Administration Potassium Chloride 10 meq 05/06/20 09:00 05/08/20 08:28 Potassium Chloride 10 Meq Tabcr PO 06/05/20 08:59 10 meq BID LUIS Administration Sennosides 8.6 mg 05/07/20 11:15 05/08/20 08:28 Senna 8.6 Mg Tab PO 06/06/20 11:14 8.6 mg QAM LUIS Administration NPO Date Last Intake of Fluids: 05/07/20 Time Last Intake of Fluids: 07:00 Last Intake of Fluids Comment: sip with meds Date Last Intake of Solids: 05/06/20 Time Last Intake of Solids: 17:00 Past Medical History Medical History Anxiety C. difficile colitis hx ~2018. 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 Depression Diverticulitis of colon with perforation NO SURGERY DM type 2 (diabetes mellitus, type 2) Dyslipidemia Immunocompromised Kidney stones Obesity Osteoarthritis Pancytopenia Follows with heme Splenomegaly r/t chemotherapy Past Family History Family History Mother , Age 62 Breast cancer Father , Age 62 Stroke Sister Family history of diabetes mellitus Brother Family history of diabetes mellitus Brother Family history of diabetes mellitus Other No family history of adverse response to anesthesia Past Surgical History Surgical History History of colonoscopy History of cystoscopy STONE REMOVAL WITH STENT PLACED History of esophagogastroduodenoscopy (EGD) History of tooth extraction History of vascular access device RIGHT UPPER CHEST PLACED 09/2018 Hx of hernia repair Hx of tonsillectomy Social History Smoking Status: Former smoker tobacco type: cigarettes Do You Dip or Chew Tobacco: No Hx Alcohol Use: No Hx Substance Use: Yes substance use type: opiates Physical Exam Vital Signs Last Vital Signs Temp 36.5 C 05/08/20 15:20 Pulse 66 05/08/20 15:20 Resp 19 05/08/20 15:20 BP 102/65 05/08/20 15:20 Pulse Ox 97 05/08/20 15:20 Testing Laboratory Results 05/07/20 00:45 PT 11.5 Seconds (9.0-12.0) 05/05/20 23:55 INR 1.1 (0.9-1.1) 05/05/20 23:55 APTT 61.8 Seconds (21.0-31.0) H* 05/05/20 23:55 Hemoglobin A1c 6.0 % (4.5-5.6) H 05/06/20 07:27 Blood Type A Positive 05/05/20 23:55 Antibody Screen NEGATIVE 05/05/20 23:55 05/08/20 05/08/20 11:53 07:15 POC Glucose 93 95 Electrocardiogram Date: 05/06/20 Test Reason : Blood Pressure : / mmHG Vent. Rate : 079 BPM Atrial Rate : 079 BPM P-R Int : 180 ms QRS Dur : 078 ms QT Int : 376 ms P-R-T Axes : 005 -29 055 degrees QTc Int : 431 ms Poor data quality, interpretation may be adversely affected Normal sinus rhythm Old Anteroseptal infarct (cited on or before 01-APR-2020) Abnormal ECG When compared with ECG of 01-APR-2020 21:07, No significant change was found Confirmed by Fercho Forbes ([id number]) on 05/06/2020 8:24:10 AM
[2020-05-08] MEDS ORDERED: LAVAGE SOLUTION 4000ML PO SCH (16:00)
[2020-05-08 16:22] LABS: Eosinophils # (auto) 0.05 K/uL (0-0.5); Eosinophils % (auto) 3.1 %; Giant Platelets 1+; Lymphocytes # (auto) 0.66 K/uL (1.2-3.4); Lymphocytes % (auto) 40.5 %; Monocytes # (auto) 0.14 K/uL (0.11-0.59); Monocytes % (auto) 8.6 %; Neutrophils # (auto) 0.78 K/uL (1.4-6.5); Neutrophils % (auto) 47.8 %; Ovalocytes 1+
--- NOTE | 2020-05-08 18:04 | Communication Note ---
Date of Service: May 08, 2020 Patient/Patient's daughter agreeable for colonic stent to be placed by GI team on this admission. because the recent CBC on 05/08/2020 with platelets around 44K and in anticipation of possible GI procedure, hospitalist ordering 2 units of platelets to be transfused to target serum platelet count above 50K prior to procedure. In addition, will request anesthesia consult to evaluate pre- operatively
[2020-05-09 07:10] LABS: Hematocrit (blood only) 26.8 % (42-52); Hemoglobin 8.1 g/dL (14.0-18.0); Mean Corpuscular Hemoglobin 29.3 pg (25-34); Mean Corpuscular Hgb Conc 30.2 g/dL (32-36); Mean Corpuscular Volume 97.1 fL (80-100); RDW Coefficient of Variation 17.1 % (11.5-14.5); RDW Standard Deviation 59.9 fL (36.4-46.3); Red Blood Count 2.76 M/uL (4.7-6.1); White Blood Count 1.21 K/uL (4.8-10.8)
[2020-05-09 07:14] LABS: Mean Platelet Volume 9.2 fL (7.4-10.4); Platelet Count 55 K/uL (130-400)
--- NOTE | 2020-05-09 07:33 | Hospitalist Progress Note ---
Date of Service May 09, 2020 Assessment & Plan (1) GI bleed: -This 59-year-old male presents with rectal bleed when at home -as per admission note, " History of colon cancer. Was constipated. After stool suppository, had two large amounts of rectal bleed. Hemoglobin is 9.5, in the morning it was 10.5. CAT scan is also showing duodenitis. He has also some epigastric abdominal pain." -patient on IV Protonix b.i.d. -05/06/2020 daytime hospitalist exam: Patient seen and examined in the AM with IV fluids running and mild decrease in hemoglobin to 8.5. Patient not in distress. When asked about bowel movements, patient affirms blood with bowel movement at home and subsequently second bowel movement with blood overnight when patient in the medical telemetry diaz. 05/06/2020 CXR: IMPRESSION: Cardiac enlargement with no acute cardiopulmonary abnormality. -05/07/2020: Hgb stable. Patient returns from colonoscopy on 05/07/[address] Kash Law who saw "colonic mass with stricture at 70 cm, friable, likely cause of bleeding. biopsied. medium int hemorrhoids, nonbleeding. poor prep" -further management as below Metastatic colon cancer Pancytopenia due to chemotherapy, cancer, and GI bleeding all in setting of colon cancer -status post surgery in the past. as outpatient, patient gets chemotherapy every two weeks -given IV venofer x 1 on 05/06/2020, will resume home dose iron supplements starting on 05/07/2020 -monitor Hgb and platelets -hospitalist discussed with Dr. Chance Meraz about the 05/07/2020 colonoscopy findings, whom patient follows for chemotherapy of the stage IV cancer. Dr. Meraz reports that there were no plans for colorectal surgery evaluation given that patient's cancer had metastasized. Dr. Meraz did suggest asking gastroenterology service whether patient can benefit from a gastrointestinal stenting to prevent bowel obstruction. Hospitalist discussed this suggestion with Dr Law and he plans to discuss with [facility] gastroenterology team -05/08/2020: no further bleeding per rectum noted since 05/06/2020. C.difficile test negative. Patient received 2 units of platelets in anticipation for colonic stent placement for 05/09/2020 -05/09/2020: Patient's serum platelets of 55 K. Patient may proceed to have colonic stent placement as planned by [facility] Gastroenterology team. 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 PT / OT evaluations, case management consult Admission and Anticipated Discharge Date Admission Date: May 06, 2020 Subjective 05/09/2020: Patient's serum platelets of 55 K. Patient may proceed to have colonic stent placement as planned by [facility] Gastroenterology team. Hospitalist discussed with patient that after colonic stent is performed, patient should stay as inpatient to ensure no acute drop in blood counts or GI bleeds before hospital discharge in future days breathing on room air. no chest pain. no abdomen pain. no nausea/vomiting. no dizziness. no headache. no acute distress. patient denies other symptoms Review of Systems Review of Systems: All systems reviewed & are unremarkable except as noted in Subjective Physical Exam Constitutional: cooperative and comfortable Eyes: PERRL, conjunctivae normal, anicteric sclerae EOM intact bilaterally ENMT: external ear and nose normal, oropharynx normal Neck: normal visual inspection Respiratory: normal respiratory effort, lungs clear to auscultation normal respiratory effort Auscultation: + crackles Cardiovascular: Rate/Rhythm: regular rate and regular rhythm Gastrointestinal (Abdomen): normal bowel sounds, soft, nontender, no hepatosplenomegaly Musculoskeletal: Head/Neck/Chest: normocephalic and head atraumatic Neurologic: PERRL, EOMI, accommodation nl, no face palsy, no dysarthria CN's II-XI intact bilaterally Psychiatric: A+Ox3, euthymic affect Results & Data Results & Data ([facility]) Vital Signs (Past 12 Hours) Vital Signs Temp Pulse Pulse Resp BP BP Pulse Ox 05/09/20 07:20 36.5 C 62 17 101/64 96 05/09/20 04:50 36.4 C L 63 18 105/62 97 05/09/20 00:05 36.4 C L 66 18 98/64 L 98 05/08/20 20:47 36.6 C 70 106/68 100 05/08/20 20:36 36.7 C 67 17 109/68 97 05/08/20 20:18 106/66 05/08/20 19:55 36.9 C 70 106/67
[2020-05-09] MEDS: INSULIN ASPART 100 UNITS/ML 3 ML PEN SC SCH ×4 (07:34→20:38)
[2020-05-09] MEDS: CYANOCOBALAMIN 500 MCG TABLET (VITAMIN B-12) PO SCH (07:36)
[2020-05-09] MEDS: SENNA 8.6 MG TAB PO SCH (07:36)
[2020-05-09] MEDS: MoRPHine SULFATE CR 15 MG TABCR PO SCH ×2 (07:36→20:37)
[2020-05-09] MEDS: POTASSIUM CHLORIDE 10 MEQ TABCR PO SCH ×2 (07:36→20:37)
[2020-05-09] MEDS: PANTOprazole 40 MG in SYRINGE 0 ML IV SCH ×2 (07:36→20:37)
[2020-05-09 08:01] LABS: Eosinophils # (auto) 0.05 K/uL (0-0.5); Eosinophils % (auto) 4.1 %; Immature Granulocytes # (auto) 0.02 K/uL (0.00-0.02); Immature Granulocytes % (auto) 1.7 %; Lymphocytes # (auto) 0.58 K/uL (1.2-3.4); Lymphocytes % (auto) 47.9 %; Monocytes # (auto) 0.11 K/uL (0.11-0.59); Monocytes % (auto) 9.1 %; Neutrophils # (auto) 0.45 K/uL (1.4-6.5); Neutrophils % (auto) 37.2 %
--- NOTE | 2020-05-09 11:08 | Gastroenterology Progress Note ---
Date of Service May 09, 2020 Assessment & Plan (1) Colon cancer metastasized to intrathoracic lymph node: Partially obstructing descending colon adenocarcinoma. Tolerated colonoscopy prep well. Plan for colon stent placement in the OR today by Dr. Adame. Present on Admission?: Yes (2) Acute lower GI bleeding: From the tumor and currently not hemodynamically significant. This will likely continue. Present on Admission?: Yes Admission and Anticipated Discharge Date Admission Date: May 06, 2020 Supervising Physician Co-Signing Physician Notes I saw and evaluated the patient. He has presented with an obstructing colonic mass, colonoscopy with stent placement has been requested for palliative care. PE: NAD mild abdominal distention Impression: History of colonic cancer with an obstructing mass in the descending colon. We have discussed the risks to include bleeding, infection, perforation, stent migration and need for f/u studies. Plan Colonoscopy with stent placment Subjective A 59-year-old male 59 yr old male with adenomatous stage IV colon cancer(mets to lymph and lungs) on chemotherapy who presented 05/06/20 for abd pain and co nstipation. Bloody BMs after arrival. Colonoscopy by Dr. Law on 05/07 with nearly obstructing descending colon lesion. CT with focal narrowing/stricturing of the distal descending colon. Today: Was able to complete the 2L golytely prep with result of multiple brown liquid BMs. Abdomen feels "smaller," and reports less pain. Pancytopenia: WBC 1.2, Hb 8.1, Hct 26.8, Platlets 55, Per Dr. Wolfe (primary hospitalist service: 2 unit platelet transfusion this AM. INR 1.1, PT 11, APTT 61. Not on any antiplatelet or anticoagulant meds. Plan is for endoscopic placement of a colon stent this afternoon in the OR by Dr. Adame. Discussed with pt and his daughter, both aware of risks of bleeding, perforation, infection. Both would like to go forward with the procedure. Review of Systems Review of Systems: ROS: Gen: + weakness, +weight loss no fevers Eyes: No eye redness, or pain, no recent vision changes Resp: No SOB, no cough Cardio: No palpitations/irregular beats, no chest pain GI: Abd pain - much improved; no N/V today : Denies pain on urination Skin: No jaundice, itching or new rashes Physical Exam Constitutional: WD/WN, vitals as above Eyes: PERRL, conjunctivae normal, anicteric sclerae ENMT: external ear and nose normal, oropharynx normal Neck: trachea midline, no thyromegaly Respiratory: normal respiratory effort, lungs clear to auscultation Cardiovascular: RRR, no murmur, no edema Gastrointestinal (Abdomen): Percussion/Palpation: + abdomen tender (Rt mid and lower abd tenderness) and abdomen soft Musculoskeletal: no cyanosis or clubbing, extremities motor strength 5/5 Skin: no rashes, warm and dry no jaundice Neurologic: PERRL, EOMI, accommodation nl, no face palsy, no dysarthria Lymphatic: no cervical or axillary lymphadenopathy Results & Data ([facility]) Vital Signs (Past 12 Hours) Vital Signs Temp Pulse Resp BP Pulse Ox 05/09/20 07:20 36.5 C 62 17 101/64 96 05/09/20 04:50 36.4 C L 63 18 105/62 97 05/09/20 00:05 36.4 C L 66 18 98/64 L 98
[2020-05-09] MEDS: CIPROFLOXACIN / D5W 400 MG/200 ML BAG IV SCH (13:03)
[2020-05-09] MEDS ORDERED: MIDAZOLAM HCL 1 MG/ML 2ML VIAL ONE (13:55)
--- NOTE | 2020-05-09 13:59 | History & Physical Bridge Note ---
Date of Service May 09, 2020 History & Physical Bridge Note I saw and evaluated the patient. He has presented with an obstructing colonic mass, colonoscopy with stent placement has been requested for palliative care. PE: NAD mild abdominal distention Impression: History of colonic cancer with an obstructing mass in the descending colon. We have discussed the risks to include bleeding, infection, perforation, stent migration and need for f/u studies. Plan Colonoscopy with stent placment
[2020-05-09] MEDS ORDERED: ATROPINE SULFATE 0.1 MG/ML 10ML SYR IV PRN ×2 (14:12→14:41)
[2020-05-09] MEDS ORDERED: ePHEDrine sulfate 50 MG/ML AMP IV PRN ×2 (14:12→14:41)
--- NOTE | 2020-05-09 14:12 | Anesthesiology Consultation ---
Date of Service May 09, 2020 Assessment & Plan Chart Review Chart Review: Acceptable Risk for Surgery and Patient NOT seen in Pre Admission Testing Consults Requested none ASA ASA4 Proposed Anesthesia Anesthesia Type: MAC Risk / Benefits Reviewed With: PT / POA / Parent / Guardian, Accepts Plan and Informed Consent Obtained Additional Comments: covid test negative History Surgery Operation Date: 05/07/20 09:30 Proposed Procedures p Colonoscopy - Kash Law MD Operation Date: 05/09/20 07:00 Proposed Procedures p Colonoscopy - Lexa Adame DO Height/Weight Height: 5 ft 6 in Weight: 77.2 kg Allergies Allergy/AdvReac Type Severity Reaction Status Date / Time No Known Allergies Allergy Verified 05/06/20 00:33 Medications Home Medications Medication Instructions Recorded Confirmed Last Taken pioglitazone [Actos] 30 mg PO QAM 04/18/18 05/06/20 05/05/20 ferrous sulfate 325 mg PO Q2D 10/02/18 05/06/20 05/05/20 Avastin 0 mg IV UD 08/13/19 05/06/20 11/24/19 acetaminophen [Tylenol Extra 500 mg PO Q6H PRN 08/13/19 05/06/20 08/13/19 06:30 Strength] 1000 mg Jardiance 10 mg PO QAM 08/31/19 05/06/20 05/05/20 oxycodone-acetaminophen 1 tab PO Q6 PRN 12/27/19 05/06/20 03/31/20 prochlorperazine maleate 10 mg PO AMHS 12/27/19 05/06/20 05/05/20 [Compazine] cyanocobalamin (vitamin B-12) 500 mcg PO QAM 02/11/20 05/06/20 05/05/20 [Vitamin B-12] diphenoxylate-atropine 1 tab PO QID PRN 02/11/20 05/06/20 04/01/20 hyoscyamine sulfate [Levsin] 0.125 mg PO Q6H PRN 02/11/20 05/06/20 05/05/20 irinotecan 0 mg IV UD 04/01/20 05/06/20 Unknown morphine 15 mg PO Q12H 04/01/20 05/06/20 05/05/20 omeprazole 20 mg PO QAM 04/01/20 05/06/2020 potassium chloride [Klor-Con M10] 10 meq PO BID 04/01/20 05/06/20 05/05/20 ondansetron HCl 8 mg PO Q8 PRN 05/06/20 05/06/20 Unknown Active Medications Generic Name Dose Route Start Last Admin Trade Name Freq PRN Reason Stop Dose Admin Cyanocobalamin 500 mcg 05/06/20 09:00 05/09/20 07:36 Cyanocobalamin 500 Mcg Tablet (Vitamin B-12) PO 06/05/20 08:59 500 mcg QAM LUIS Administration Ferrous Sulfate 325 mg 05/08/20 09:00 05/08/20 08:28 Ferrous Sulfate 325 Mg Tab PO 06/07/20 08:59 325 mg Q2D@0900 LUIS Administration Hyoscyamine 0.125 mg 05/06/20 04:34 05/07/20 08:03 Hyoscyamine Sulfate 0.125 Mg Tab PO 06/05/20 04:33 0.125 mg Q6H PRN Administration CRAMPING Pantoprazole Sodium 40 mg/ 10 mls @ 5 mls/min 05/06/20 09:00 05/09/20 07:36 Syringe IV 06/05/20 08:59 5 mls/min BID LUIS Administration Ciprofloxacin 400 mg in 200 mls @ 100 mls/hr 05/09/20 12:45 05/09/20 13:03 Cipro / D5w IV 05/19/20 12:44 100 mls/hr Q12H LUIS Administration Protocol Insulin Aspart 0 units 05/06/20 07:30 05/09/20 12:16 Insulin Aspart 100 Units/Ml 3 Ml Pen SC 06/05/20 07:29 Not Given ACHS LUIS Morphine Sulfate 15 mg 05/06/20 09:00 05/09/20 07:36 Morphine Sulfate Cr 15 Mg Tabcr PO 05/20/20 08:59 15 mg Q12H LUIS Administration Potassium Chloride 10 meq 05/06/20 09:00 05/09/20 07:36 Potassium Chloride 10 Meq Tabcr PO 06/05/20 08:59 10 meq BID LUIS Administration Sennosides 8.6 mg 05/07/20 11:15 05/09/20 07:36 Senna 8.6 Mg Tab PO 06/06/20 11:14 8.6 mg QAM LUIS Administration NPO Date Last Intake of Fluids: 05/08/20 Time Last Intake of Fluids: 22:00 Last Intake of Fluids Comment: sip of water 0800 w/meds Date Last Intake of Solids: 05/08/20 Time Last Intake of Solids: 12:00 Past Medical History Medical History Anxiety C. difficile colitis hx ~2018. 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 Depression Diverticulitis of colon with perforation NO SURGERY DM type 2 (diabetes mellitus, type 2) Dyslipidemia Immunocompromised Kidney stones Obesity Osteoarthritis Pancytopenia Follows with heme Splenomegaly r/t chemotherapy Exercise / Class Metabolic Activity III < 4 Walking/Shop/Light housework Past Family History Family History Mother , Age 62 Breast cancer Father , Age 62 Stroke Sister Family history of diabetes mellitus Brother Family history of diabetes mellitus Brother Family history of diabetes mellitus Other No family history of adverse response to anesthesia Past Surgical History Surgical History History of colonoscopy History of cystoscopy STONE REMOVAL WITH STENT PLACED History of esophagogastroduodenoscopy (EGD) History of tooth extraction History of vascular access device RIGHT UPPER CHEST PLACED 09/2018 Hx of hernia repair Hx of tonsillectomy Past Anesthesia History No Hx of Anesthesia Complications and No Family Hx of Anesthesia Complications History of PONV No Hx of PONV and No Hx of Motion Sickness Social History Smoking Status: Former smoker tobacco type: cigarettes Do You Dip or Chew Tobacco: No Hx Alcohol Use: No Hx Substance Use: Yes substance use type: opiates Physical Exam Vital Signs Last Vital Signs Temp 36.6 C 05/09/20 13:51 Pulse 74 05/09/20 13:51 Resp 20 05/09/20 13:51 BP 112/70 05/09/20 13:51 Pulse Ox 100 05/09/20 13:51 Constitutional + cachectic ENMT Mouth: no dentition abnormality Thyromental Distance: > or= 3.5 Finger Breadths Mallampati Class: II Neck normal visual inspection, trachea midline and + facial hair; neck extension not limited Respiratory normal respiratory effort Auscultation: + wheezes Cardiovascular Rate/Rhythm: regular rate and regular rhythm Heart Sounds: no murmur Vessels: no carotid bruit Musculoskeletal Spine: normal cervical ROM Extremities: extremities normal to inspection Neurologic moves all extremities Motor/Sensory: no sensory deficit Psychiatric Orientation: alert and oriented x 3 Testing Laboratory Results 05/09/20 06:33 05/07/20 00:45 PT 11.5 Seconds (9.0-12.0) 05/05/20 23:55 INR 1.1 (0.9-1.1) 05/05/20 23:55 APTT 61.8 Seconds (21.0-31.0) H* 05/05/20 23:55 Hemoglobin A1c 6.0 % (4.5-5.6) H 05/06/20 07:27 Blood Type A Positive 05/05/20 23:55 Antibody Screen NEGATIVE 05/05/20 23:55 05/09/20 05/09/20 11:15 07:23 POC Glucose 97 92
[2020-05-09] MEDS ORDERED: FLUMAZENIL 0.1 MG/1 ML 10 ML VIAL IV PRN (14:41)
[2020-05-09] MEDS ORDERED: fentaNYL citrate 100 MCG/2 ML VIAL IV PRN (14:41)
[2020-05-09] MEDS ORDERED: NALOXONE HCL 0.4 MG/1 ML VIAL/CARP IV PRN (14:41)
[2020-05-09] MEDS ORDERED: ONDANSETRON INJ 2 MG/ML 2 ML VIAL IV PRN (14:41)
[2020-05-09] MEDS ORDERED: PROMETHAZINE HCL 12.5 MG in SODIUM CHLORIDE 0.9% 50 ML IV PRN (14:41)
[2020-05-09] MEDS ORDERED: LABETALOL HCL IV 5 MG/ML 20ML IV PRN (14:41)
--- NOTE | 2020-05-09 14:52 | Post Operative Brief Note ---
Immediate Post Op Note v1 Date of Surgery May 09, 2020 Pre & Post Diagnosis Operation Date: 05/07/20 09:30 Pre-Op Diagnosis: Rectal bleed Post-Op Diagnosis: Colon mass, colon stricture, hemorrhoid Operation Date: 05/09/20 07:00 Pre-Op Diagnosis: Colon Cancer Post-Op Diagnosis: Colon Cancer, colonic stent placed I identified the patient and participated in the time-out.: Yes Procedure Operation Date: 05/07/20 09:30 Actual Procedures p Colonoscopy(Not Applicable) - Kash Law MD Operation Date: 05/09/20 07:00 Actual Procedures p Colonoscopy with Stent Placement(Not Applicable) - Lexa Adame DO Surgeon Lexa Adame DO Manager [employer] none Estimated Blood Loss 0 Findings Consistent with Post-Op Diagnosis
[2020-05-09] MEDS ORDERED: LIDOCAINE HCL 2% 2 ML VIAL/AMP(20MG/ML) INFIL ONE (14:53)
[2020-05-09] MEDS ORDERED: PROPOFOL IV EMULSION 10 MG/ML 20 ML VIAL IV ONE (14:53)
--- NOTE | 2020-05-09 15:01 | GI REPORT ---
Patient Name: Diogo Acosta Procedure Date: 05/09/2020 2:11 PM Date of : 1960 Admit Type: Inpatient Age: 59 Gender: Male Attending MD: Lexa Adame DO Procedure: Colonoscopy Providers: Lexa Adame DO Referring MD: Chance Meraz, Mikey Wolfe M.d., Mykel Coulter MD Indications: For therapy of colon cancer Medicines: Monitored Anesthesia Care Complications: No immediate complications. Estimated blood loss: Minimal. Estimated Blood Loss: Estimated blood loss was minimal. Procedure: Pre-Anesthesia Assessment: - Prior to the procedure, a History and Physical was performed, and patient medications, allergies and sensitivities were reviewed. The patient's tolerance of previous anesthesia was reviewed. - The risks and benefits of the procedure and the sedation options and risks were discussed with the patient. All questions were answered and informed consent was obtained. - Patient identification and proposed procedure were verified prior to the procedure by the physician, the nurse and the assembly riveter. The procedure was verified in the procedure room. - Pre-procedure physical examination revealed no contraindications to sedation. - ASA Grade Assessment: IV - A patient with severe systemic disease that is a constant threat to life. - After reviewing the risks and benefits, the patient was deemed in satisfactory condition to undergo the procedure. - The anesthesia plan was to use monitored anesthesia care (MAC). - Immediately prior to administration of medications, the patient was re-assessed for adequacy to receive sedatives. - The heart rate, respiratory rate, oxygen saturations, blood pressure, adequacy of pulmonary ventilation, and response to care were monitored throughout the procedure. - The physical status of the patient was re-assessed after the procedure. After I obtained informed consent, the scope was passed under direct vision. Throughout the procedure, the patient's blood pressure, pulse, and oxygen saturations were monitored continuously. The Endoscope was introduced through the anus and advanced to the descending colon to examine a mass. This was the intended extent. The colonoscopy was performed without difficulty. The patient tolerated the procedure well. The quality of the bowel preparation was good. Findings: The perianal and digital rectal examinations were normal. Pertinent negatives include normal sphincter tone. A fungating completely obstructing large mass was found in the descending colon. The mass was circumferential. In addition, its diameter measured five mm. Oozing was present. The stricture was evaluated using a standard ERCP catheter with a 0.035 in 450 cm stiff Jag wire using flouroscopic guidance. The stricture was 2-3 cm in length with proximal colonic dilation (above the stricture).This was stented with a 6 cm 23 mm Cook Evolution stent placed uder floroscopic guidance (2 Minutes Evolution, REF [id number], Lot [id number]). The stent was then dilated with a 15 mm balloon resulting in flow of liquid stool and contrast from the proximal colon. The total flouro time was 58 Seconds.. Impression: - Malignant completely obstructing tumor in the descending colon. Prosthesis placed. Recommendation: - Return patient to [facility] for ongoing care. - Clear liquid diet today. - Miralax 1 capful (17 grams) in 8 ounces of water PO daily indefinitely. Lexa Adame D.O. Lexa Adame, DO 05/09/2020 3:01:15 PM This report has been signed electronically. Note Initiated On: 05/09/2020 2:11 PM Number of Addenda: 0 I attest to the content of the Intraoperative Record and orders documented therein, exceptions below {[id number]}
--- NOTE | 2020-05-09 15:03 | Communication Note ---
Date of Service: May 09, 2020 Patient underwent colonoscopy with colonic stent placement today. Recommendations: May have clear liquids today Miralax 17 gm 1 time daily
[2020-05-09] MEDS ORDERED: IOVERSOL 50ml IV ONE (15:07)
--- NOTE | 2020-05-09 15:10 | Fluoroscopy Report ---
INTRAOPERATIVE RADIOGRAPHS CLINICAL HISTORY: Colonoscopy with stent placement. Fluoroscopy time: 58 seconds. FINDINGS: 6 spot fluoroscopic views of the lower abdomen are correlated with abdominal CT dated 05/06. A wire is present in the left colon and following contrast administration there is evidence of a colonic stricture. This likely secondary to a mass lesion seen by CT. A stent is deployed across t his region. IMPRESSION: Intraoperative images from a left colonic stent placement procedure. See operative report for detailed findings. Electronically signed by: Alton Gutierrez M.D. 05/09/2020 3:09 PM
--- NOTE | 2020-05-09 15:29 | Anesthesiology Progress Note ---
Date of Service May 09, 2020 Anesthesia Post Procedure Vital Signs Vital Signs: Temp Pulse Pulse Pulse Resp BP BP 05/09/20 15:25 99.3 F 66 16 103/63 05/09/20 15:15 68 14 93/62 L 05/09/20 15:05 69 15 103/65 05/09/20 14:58 98.4 F 64 16 116/70 05/09/20 13:51 97.9 F 74 20 112/70 05/09/20 11:34 98.1 F 65 19 94/60 L 05/09/20 07:20 97.7 F 62 17 101/64 05/09/20 04:50 97.5 F L 63 18 105/62 05/09/20 00:05 97.5 F L 66 18 98/64 L 05/08/20 20:47 97.9 F 70 106/68 05/08/20 20:36 98.1 F 67 17 109/68 05/08/20 20:18 106/66 05/08/20 19:55 98.4 F 70 106/67 05/08/20 19:24 97.9 F 68 107/67 05/08/20 19:19 97.3 F L 67 115/71 05/08/20 19:03 97.3 F L 74 119/79 05/08/20 19:02 97.3 F L 74 119/74 05/08/20 16:00 68 Pulse Ox 05/09/20 15:25 99 05/09/20 15:15 99 05/09/20 15:05 100 05/09/20 14:58 100 05/09/20 13:51 100 05/09/20 11:34 99 05/09/20 07:20 96 05/09/20 04:50 97 05/09/20 00:05 98 05/08/20 20:47 100 05/08/20 20:36 97 05/08/20 20:18 05/08/20 19:55 05/08/20 19:24 05/08/20 19:19 05/08/20 19:03 99 05/08/20 19:02 99 05/08/20 16:00 Pain Intensity Generalized: Pain Intensity: 7 Transfer of Care Handoff Completed per policy Notes Mental Status: alert / awake / arousable and participated in evaluation Patient Amnestic to Procedure: Yes Nausea / Vomiting: adequately controlled Pain: adequately controlled Airway Patency, RR, SpO2: stable & adequate BP & HR: stable & adequate Hydration State: stable & adequate Anesthetic Complications: no major complications apparent and Pt Satisfied with anesthetic care
[2020-05-10 06:37] LABS: Hematocrit (blood only) 27.2 % (42-52); Hemoglobin 8.5 g/dL (14.0-18.0); Mean Corpuscular Hemoglobin 30.5 pg (25-34); Mean Corpuscular Hgb Conc 31.3 g/dL (32-36); Mean Corpuscular Volume 97.5 fL (80-100); RDW Coefficient of Variation 16.8 % (11.5-14.5); RDW Standard Deviation 59.5 fL (36.4-46.3); Red Blood Count 2.79 M/uL (4.7-6.1); White Blood Count 1.25 K/uL (4.8-10.8)
[2020-05-10 07:17] LABS: Mean Platelet Volume 8.9 fL (7.4-10.4); Platelet Count 53 K/uL (130-400)
[2020-05-10 07:18] LABS: Eosinophils # (auto) 0.04 K/uL (0-0.5); Eosinophils % (auto) 3.2 %; Lymphocytes # (auto) 0.58 K/uL (1.2-3.4); Lymphocytes % (auto) 46.4 %; Neutrophils # (auto) 0.53 K/uL (1.4-6.5); Neutrophils % (auto) 42.4 %; RBC Morphology Unremarkable
[2020-05-10] MEDS: PANTOprazole 40 MG in SYRINGE 0 ML IV SCH ×2 (08:01→20:30)
[2020-05-10] MEDS: POTASSIUM CHLORIDE 10 MEQ TABCR PO SCH ×2 (08:01→20:30)
[2020-05-10] MEDS: CYANOCOBALAMIN 500 MCG TABLET (VITAMIN B-12) PO SCH (08:02)
[2020-05-10] MEDS: MoRPHine SULFATE CR 15 MG TABCR PO SCH ×2 (08:03→20:30)
[2020-05-10] MEDS: SENNA 8.6 MG TAB PO SCH (08:03)
[2020-05-10] MEDS: INSULIN ASPART 100 UNITS/ML 3 ML PEN SC SCH ×4 (09:17→22:31)
--- NOTE | 2020-05-10 09:36 | Gastroenterology Progress Note ---
Date of Service May 10, 2020 Assessment & Plan (1) Colon cancer metastasized to intrathoracic lymph node: Cipro x 3 days for coverage of translocation of bacteria in this pt with leukopenia. Full liquid diet while admitted. Discussed with the pt: - On discharge, diet should be mostly full liquids but may have small volumes of soft solid foods such as eggs, oatmeal, white bread. - He should always avoid raw fruits and vegetables, especially leafy green vegetables. May eat canned fruits in small volumes. - To keep the stool more liquid, more able to pass through the stent, he should titrate miralax to pass 1-2 loose BMs/day, starting with one dose/day, and he should drink 6-8 eight oz glasses of water/day. (2) Acute lower GI bleeding: From the tumor and currently not hemodynamically significant. This will likely continue. Admission and Anticipated Discharge Date Admission Date: May 06, 2020 Supervising Physician Co-Signing Physician Notes I have personally seen and examined the patient with TALIA Rodriguez. Her note reflects my exam and findings. I agree with her impression and plan. Doing well s/p colonic stent. Mykel Coulter M.D. Subjective A 59-year-old male with colon cancer who underwent colonic stenting yesterday for an obstructing descending colon mass. He feels well today, minimal abdominal discomfort, no abdominal distention and has passed 2 loose bowel movements since the procedure. No blood in his most recent bowel movement. Hemoglobin 8.5 which is his approximate baseline. He continues leukopenic with white blood cells at 1.2, he is being covered with Cipro 400mg IV, twice daily. Tolerating a full liquid diet well. Review of Systems Review of Systems: ROS: Gen: + weakness, +weight loss no fevers Eyes: No eye redness, or pain, no recent vision changes Resp: No SOB, no cough Cardio: No palpitations/irregular beats, no chest pain GI: Abd pain - much improved; no N/V today : Denies pain on urination Skin: No jaundice, itching or new rashes Physical Exam Constitutional: WD/WN, vitals as above + ill appearing (pale; temporal wasting) Eyes: PERRL, conjunctivae normal, anicteric sclerae ENMT: external ear and nose normal, oropharynx normal Neck: trachea midline, no thyromegaly Respiratory: normal respiratory effort, lungs clear to auscultation Cardiovascular: RRR, no murmur, no edema Gastrointestinal (Abdomen): Inspection/Auscultation: abdomen not distended Percussion/Palpation: + abdomen tender (very mild Rt mid and lower abd tenderness) and abdomen soft Musculoskeletal: no cyanosis or clubbing, extremities motor strength 5/5 Skin: no rashes, warm and dry no jaundice Neurologic: PERRL, EOMI, accommodation nl, no face palsy, no dysarthria Lymphatic: no cervical or axillary lymphadenopathy Results & Data ([facility]) Vital Signs (Past 12 Hours) Vital Signs Temp Pulse Resp BP Pulse Ox 05/10/20 08:31 36.7 C 63 16 102/62 98 05/10/20 04:21 36.3 C L 61 18 89/58 L 98 05/10/20 00:01 36.7 C 65 16 90/60 L 97 Diagnostic Findings Colonoscopy yesterday by Dr. Adame for a compeletly obstructing descending colon mass with placement of a 6cm x 23mm colon stent.
[2020-05-10] MEDS: CIPROFLOXACIN / D5W 400 MG/200 ML BAG IV SCH ×2 (12:07)
--- NOTE | 2020-05-10 15:14 | Hospitalist Progress Note ---
Date of Service May 10, 2020 Assessment & Plan (1) GI bleed: Presents with hematochezia likely 2/2 mass after CSP performed. Mass was obstructing and palliative colon stent then placed on 05/09. Pt doing well post- operatively. H/H remaining stable for now. Cont to trend. No plans for surgical treatment of the colon mass as his cancer has metastasized. Cont chronic long-acting narcotics for pain. Cont bowel regimen. Full liquids for now per GI, which the patient is tolerating. (2) Colon cancer: Stage IV, currently on chemotherapy, recently completed a course in the last two weeks. (3) Mass of colon: palliative treatment with stent placed on 05/09 with good result. Pt appears to be doing well. Continues on prophylaxtic antibiotics. (4) Pancytopenia: 2/2 chemotherapy. (5) Chemotherapy-induced neutropenia: cont to trend, neutropenic precautions. (6) DM type 2 (diabetes mellitus, type 2): Well controlled as outpatient and currently at goal as inpatient. Pt refusing most insulin attempts , but this is OK. Remains on carb coverage and correction factor with Novolog only. Holding outpatient Actos and jardiance for now. (7) DVT prophylaxis: SCDs in the setting of pancytopenia and recent hematochezia. Full Code Dispo-cont monitoring on PCU with downgrade to floor in am vs dispo to home. PT evaluation not needed as patient is reportedly independent with his ADLs. Lives with daughter. Keke Sutton DO [facility] Hospitalist Admission and Anticipated Discharge Date Admission Date: May 06, 2020 Subjective 59 yo male with hx stage IV colon cancer s/p chemotherapy here with rectal bleeding. Has not had hematochezia for months before these episodes. Notes weakness and dizziness as well, denies syncope. Last colonoscopy was in 2019 when cancer was diagnosed. Had recent EGD in 12/2019 that was unremarkable. Underwent a repeat CSP revealing a bladder mass. He then underwent a colon stent placement as a palliative measure on 05/09. He is doing well, feels some discomfort but is living with his new normal. Reports some small BM today but not much, tolerating his liquid diet. Denies abdominal pain. Also he is neutropenic as he just had chemotherapy 2 weeks ago. Currently afebrile and doing well from a clinical perspective. Review of Systems Review of Systems: All systems reviewed & are unremarkable except as noted in Subjective Physical Exam Physical Exam: CONSTITUTIONAL: WNWD, vitals as above, generally well- appearing, fatigued EYES: normal conjunctivae, no scleral icterus ENT: external ear and nose normal, oropharynx clear, MMM RESPIRATORY: clear to auscultation bilaterally, no crackles, rales or wheezes, normal respiratory effort CARDIOVASCULAR: regular rate and rhythm, S1 and 2 heard without murmurs, gallops or rubs, no JVD, no peripheral edema GASTROINTESTINAL: soft, nontender, nondistended, no guarding MUSCULOSKELETAL: strength 5/5 throughout, head is normocephalic and atraumatic SKIN: warm and dry NEUROLOGIC: No facial palsy, CN 2-12 grossly intact, normal cognition, normal speech, no gross focal deficits. PSYCHIATRIC: alert cooperative and oriented Results & Data Results & Data ([facility]) Vital Signs (Past 12 Hours) Vital Signs Temp Pulse Pulse Resp BP Pulse Ox 05/10/20 14:49 72 05/10/20 10:59 36.4 C L 78 20 94/58 L 96 05/10/20 08:31 36.7 C 63 16 102/62 98 05/10/20 08:00 57 L 05/10/20 04:21 36.3 C L 61 18 89/58 L 98 Laboratory Results Short CBC 05/10/20 Range/Units 06:25 WBC 1.25 L (4.8-10.8) K/uL Hgb 8.5 L (14.0-18.0) g/dL Hct 27.2 L (42-52) % Plt Count 53 L (130-400) K/uL Medications Administered Current Inpatient Medications Acetaminophen (Acetaminophen 325 Mg Tab) 325 mg PO Q6H PRN PRN Reason: Pain or Fever Stop: 06/05/20 04:33 Cyanocobalamin (Cyanocobalamin 500 Mcg Tablet (Vitamin B-12)) 500 mcg PO QAM [facility] Stop: 06/05/20 08:59 Last Admin: 05/10/20 08:02 Dose: 500 mcg Documented by: Dextrose (Dextrose 50% 50 Ml Syringe) 25 - 50 ml IV UD PRN; Protocol PRN Reason: Hypoglycemia Protocol Stop: 06/05/20 04:59 Ferrous Sulfate (Ferrous Sulfate 325 Mg Tab) 325 mg PO Q2D@0900 [facility] Stop: 06/07/20 08:59 Last Admin: 05/08/20 08:28 Dose: 325 mg Documented by: Glucagon (Glucagon For Inj 1 Mg Vial) 1 mg SQ UD PRN; Protocol PRN Reason: Hypoglycemia Protocol Stop: 06/05/20 04:59 Glucose (Glucose 40% Gel 15 Gm Tube) 15 - 30 gm PO UD PRN; Protocol PRN Reason: Hypoglycemia Protocol Stop: 06/05/20 04:59 Glucose (Glucose 10 Tabs/Tube) 4 - 8 tabs PO UD PRN; Protocol PRN Reason: Hypoglycemia Protocol Stop: 06/05/20 04:59 Heparin Sodium (Porcine) (Heparin 100 Unit/Ml 5ml Flush) 5 ml FLUSH PRN PRN PRN Reason: Flush Stop: 06/06/20 01:03 Hyoscyamine (Hyoscyamine Sulfate 0.125 Mg Tab) 0.125 mg PO Q6H PRN PRN Reason: CRAMPING Stop: 06/05/20 04:33 Last Admin: 05/07/20 08:03 Dose: 0.125 mg Documented by: Pantoprazole Sodium 40 mg/ (Syringe) 10 mls @ 5 mls/min IV BID [facility] Stop: 06/05/20 08:59 Last Admin: 05/10/20 08:01 Dose: 5 mls/min Documented by: Sodium Chloride (Nss) 250 mls @ 15 mls/hr IV .[id number] PRN PRN Reason: For Transfusion Stop: 06/05/20 04:33 Ciprofloxacin (Cipro / D5w) 400 mg in 200 mls @ 100 mls/hr IV Q12H LUIS; Protocol Stop: 05/19/20 12:44 Last Infusion: 05/10/20 14:24 Dose: Infused Documented by: Insulin Aspart (Insulin Aspart 100 Units/Ml 3 Ml Pen) 0 units SC ACHS [facility] Stop: 06/05/20 07:29 Last Admin: 05/10/20 12:16 Dose: 8 units Documented by: Morphine Sulfate (Morphine Sulfate Cr 15 Mg Tabcr) 15 mg PO Q12H [facility] Stop: 05/20/20 08:59 Last Admin: 05/10/20 08:03 Dose: 15 mg Documented by: Nitroglycerin (Nitroglycerin Sl 0.4 Mg/Tab Tab) 0.4 mg SL UD PRN PRN Reason: Chest Pain Stop: 06/05/20 04:33 Ondansetron HCl (Ondansetron Inj 2 Mg/Ml 2 Ml Vial) 4 mg IV Q6H PRN PRN Reason: Nausea Stop: 06/05/20 04:33 Oxycodone/Acetaminophen (Oxycodone/Acetaminophen 5mg/325mg Tab) 1 tab PO Q6 PRN PRN Reason: Pain Stop: 05/20/20 04:33 Potassium Chloride (Potassium Chloride 10 Meq Tabcr) 10 meq PO BID [facility] Stop: 06/05/20 08:59 Last Admin: 05/10/20 08:01 Dose: 10 meq Documented by: Sennosides (Senna 8.6 Mg Tab) 8.6 mg PO QAM [facility] Stop: 06/06/20 11:14 Last Admin: 05/10/20 08:03 Dose: Not Given Documented by:
[2020-05-11] MEDS: CIPROFLOXACIN / D5W 400 MG/200 ML BAG IV SCH ×2 (00:08→12:11)
[2020-05-11 06:41] LABS: Hematocrit (blood only) 27.3 % (42-52); Hemoglobin 8.4 g/dL (14.0-18.0); Mean Corpuscular Hgb Conc 30.8 g/dL (32-36); Mean Corpuscular Volume 97.5 fL (80-100); RDW Coefficient of Variation 16.8 % (11.5-14.5); RDW Standard Deviation 60.5 fL (36.4-46.3); White Blood Count 1.35 K/uL (4.8-10.8)
[2020-05-11 07:02] LABS: Mean Platelet Volume 9.1 fL (7.4-10.4); Platelet Count 47 K/uL (130-400)
[2020-05-11 07:04] LABS: Eosinophils # (auto) 0.04 K/uL (0-0.5); Giant Platelets 1+; Lymphocytes # (auto) 0.62 K/uL (1.2-3.4); Lymphocytes % (auto) 45.9 %; Monocytes # (auto) 0.12 K/uL (0.11-0.59); Monocytes % (auto) 8.9 %; Neutrophils # (auto) 0.57 K/uL (1.4-6.5); Neutrophils % (auto) 42.2 %
[2020-05-11 07:15] LABS: BUN Creatinine Ratio 16.6 (10-20); Calcium 8.3 mg/dl (8.5-10.1); Creatinine Clr Calc Pharmacy 183.1 ml/min; Est GFR (African American) 145.6; Est GFR (Non-African American) 125.7; Magnesium 1.5 mg/dl (1.8-2.4); Potassium 3.5 mmol/L (3.5-5.1)
[2020-05-11] MEDS: MoRPHine SULFATE CR 15 MG TABCR PO SCH (07:44)
[2020-05-11] MEDS: POTASSIUM CHLORIDE 10 MEQ TABCR PO SCH (07:44)
[2020-05-11] MEDS: CYANOCOBALAMIN 500 MCG TABLET (VITAMIN B-12) PO SCH (07:44)
[2020-05-11] MEDS: PANTOprazole 40 MG in SYRINGE 0 ML IV SCH (07:45)
[2020-05-11] MEDS: SENNA 8.6 MG TAB PO SCH (07:45)
[2020-05-11] MEDS: INSULIN ASPART 100 UNITS/ML 3 ML PEN SC SCH ×3 (08:11→16:42)
[2020-05-11] MEDS: MAGNESIUM SULFATE / D5W 1 GM/100 ML BAG IV SCH ×3 (10:30→14:26)
--- NOTE | 2020-05-11 14:09 | Discharge Summary ---
Date of Service May 11, 2020 Admission HPI Per Admitting Provider HISTORY OF PRESENT ILLNESS: This is a 59-year-old male with past medical history significant for metastatic colon cancer, status post surgery, ongoing chemotherapy, pancytopenia, diabetes, hyperlipidemia, history of urolithiasis, history of C. diff, Salmonella infection, history of tobacco abuse, who lives with his daughter, who was brought in because of rectal bleed. The patient is currently getting chemo every 2 weeks. He was supposed to get chemo yesterday, but outpatient labs showed platelets of 45, which is less than his usual, and also he was not feeling well, so they did not give chemo and he is also constipated since last about 1 week. They tried stool softeners and yesterday they tried suppository. He did not move his bowel, but he had a large amount of blood per rectum two episodes and was brought into the ER. Hemoglobin in the morning was 10.5, which is his baseline and his platelets are 49. His platelets were 60 about a week and today here his hemoglobin is 9.5. His hemoccult was positive. He usually has belly pain in the lower abdomen today but today also having abdominal pain in the epigastric region, mild to moderate in severity. Was nauseous, but no vomiting. Currently, hemodynamics are stable. Denies any other complaints. As per daughter, he ambulates without any support. He is getting PT/OT at home. Denies any headache, no blurred visions, no earache, no runny nose, no sore throat, no cough, no dysphagia, no chest pain, no shortness of breath. Appetite is not that great. Today he has some difficulty micturating, but denies any burning micturition or hematuria. No swelling in the legs, no rash. Admission Exam Per Admitting Provider PHYSICAL EXAMINATION: GENERAL: The patient is of moderate build, not in acute distress. VITAL SIGNS: Temperature 37.1, pulse 97, respiratory rate 18, blood pressure 115/75, oxygen 97% on room air. HEENT: No pallor, no icterus. Pupils equal, round, and reactive to light. Oral mucosa moist. NECK: No JVD, no neck masses. CARDIOVASCULAR: S1, S2 heard. Regular rate and rhythm. No murmur, no gallop. Left-sided A-port seen. RESPIRATORY SYSTEM: Normal AP diameter. No accessory muscle use. No wheezing, no crackles. ABDOMEN: Soft, bowel sounds present. Mild epigastric tenderness. No guarding, no rigidity, no distention. CENTRAL NERVOUS SYSTEM: Cranial nerves Principal Diagnosis Hematochezia Stage IV colon cancer Obstructive mass of colon s/p colonic stent placement Chemotherapy-induced pancytopenia with neutropenia Discharge Exam CONSTITUTIONAL: WNWD, vitals as above, generally well-appearing EYES: normal conjunctivae, no scleral icterus ENT: external ear and nose normal, MMM RESPIRATORY: clear to auscultation bilaterally, no crackles, rales or wheezes, normal respiratory effort CARDIOVASCULAR: regular rate and rhythm, S1 and 2 heard without murmurs, gallops or rubs, no JVD, no peripheral edema GASTROINTESTINAL: soft, some mild generalized tenderness related to "gas", nondistended. MUSCULOSKELETAL: strength 5/5 throughout, head is normocephalic and atraumatic SKIN: warm and dry NEUROLOGIC: No facial palsy, CN 2-12 grossly intact, normal cognition, normal speech, no gross focal deficits. PSYCHIATRIC: alert cooperative and oriented Discharge Data Allergies Allergy/AdvReac Type Severity Reaction Status Date / Time No Known Allergies Allergy Verified 05/06/20 00:33 Consultations 05/06/20 02:34 ED Decision to Admit Stat 05/06/20 04:34 Consult Case Management - Discharge Planning Routine 05/06/20 08:00 Consult Gastroenterology Routine 05/06/20 12:38 Consult Gastroenterology Routine 05/08/20 18:04 Consult Anesthesiology Routine Procedures Performed Operation Date: 05/07/20 09:30 Actual Procedures p Colonoscopy(Not Applicable) - Kash Law MD Operation Date: 05/09/20 07:00 Actual Procedures p Colonoscopy with Stent Placement(Not Applicable) - Lexa Adame DO Ordered Studies 05/06/20 00:16 CT abd pelvis IV con only Urgent 05/09/20 14:00 FL KUB Routine FL fluoroscopy <1hr Routine Hospital Course (1) GI bleed: (2) Colon cancer: (3) Mass of colon: (4) Pancytopenia: (5) Chemotherapy-induced neutropenia: The patient is a 59-year-old man with a history of stage IV ascending colon adenocarcinoma diagnosed 09/2018. Historically, a PET scan revealed metabolic active lymphadenopathy in the left supraclavicular region, retroperitoneal lymphadenopathy, right paratracheal lymphadenopathy and paraesophageal lymphadenopathy (October 2018). Chemotherapy was started along with a Avastin therapy and he continues on this with last chemotherapy session on 04/28 where he received bevacizumab, dexamethasone, irinotecan, palonosetron. He presented to the ER for rectal bleeding and abdominal pain [facility] He was hemodynamically stable. Initial hemoglobin was 9.5, hematocrit was 30. His platelets are 45K and INR was normal. CT scan of the abdomen pelvis with IV contrast revealed perirectal inflammation and an underlying rectal neoplasm that could not be excluded. Focal narrowing/stricture of the distal descending colon was seen located at the site of a prior known primary colon cancer with a wall of thickening and edema above the site. Liver morphology appeared cirrhotic, retroperitoneal lymphadenopathy and pulmonary metastasis have modest modestly improved compared to February 11, 2020. Marked splenomegaly and esophageal varices indicative of portal hypertension was present. He was placed on IV Protonix twice daily and Gastroenterology was consulted. A colonoscopy was recommended and performed on 05/07. A fungating infiltrative and ulcerated, friable and partially obstructing large mass was found in the descending colon with biopsies taken for histology. Nonbleeding internal hemorrhoids were also seen. Dr. Adame [facility] placed a palliative colon stent to prevent complete obstruction on 05/09 he recovered well from this and continue to tolerate full liquid diet. Although he had some abdominal discomfort with the stent, he felt like this was getting used to his new normal and was not an issue. He was given ciprofloxacin to prevent translocation of bacteria prophylactically. During this time he became neutropenic as a result of chemotherapy but remained afebrile. After a couple of days post procedure he was still tolerating p.o. and having bowel movements and was felt to be stable to discharge back home. At this time he noted no further hematochezia from his standpoint. While in the hospital a PET CT scan was canceled which will need to be rescheduled per Dr. Meraz. He will need to continue to follow closely with his oncologist Dr. Chance Meraz and a 1 week follow-up with his primary care physician is recommended to ensure blood counts are improving, and that he is not having any further issues with blood per rectum or pain or discomfort from the stent. More detailed recommendations on diet modifications and use of laxatives were placed in the discharge instructions. Total Time Total Time Spent Total Time Spent (In Minutes): 60 Total Time Includes: Examination of the Patient, Discharge Planning, Medication Reconciliation and Communication With Other Providers Discharge Plan Discharge Items Patient Disposition: Home - Self-Care Reason For Visit: RECTAL BLEED Discharge Diagnosis: Hematochezia Stage IV colon cancer Obstructive mass of colon s/p colonic stent placement Chemotherapy-induced pancytopenia with neutropenia Activity: Resume your previous activity Non-emergency contact: Primary Care Provider Call non-emergency contact if: you have any medication questions, your symptoms worsen, your pain is not controlled and you have a fever Follow-up/Referrals: Duong Matt MD [Primary Care Provider] - (Date & Time 05/16/2020 11:20 AM Provider Duong Matt MD Department Internal Medicine [facility] ) Diet: Full liquid Addtl Attending Provider Instructions: Please take all medications as instructed on discharge list below. It is recommended that you follow-up with your primary care doctor within 1 to 2 weeks of this hospitalization. Please consider repeat blood work to ensure your anemia is improved as well as your white blood cell count and platelet level. (CBC) your magnesium was also low and repleted while in the hospital and may be rechecked (Mg). These labs may be ordered by your primary care provider at follow-up. Please continue to follow closely with Dr. Chance Meraz as instructed. Please follow specific diet instructions below as determined by the gastroenterology providers who saw you in the hospital. It was a pleasure taking care of you! Please call if you have any questions or problems. You can reach a [facility] hospitalist on duty at [facility] 24 hours a day by calling [phone]. Take care of yourself. Keke Sutton, [facility] Hospitalist Addtl [place] Provider Instructions: Per Gastroenterology: - On discharge, diet should be mostly full liquids but may have small volumes of soft solid foods such as eggs, oatmeal, white bread. - He should always avoid raw fruits and vegetables, especially leafy green vegetables. May eat canned fruits in small volumes. - To keep the stool more liquid, more able to pass through the stent, he should titrate miralax to pass 1-2 loose BMs/day, starting with one dose/day, and he should drink 6-8 eight oz glasses of water/day. Miralax is an OTC (over the counter) laxative that can be bought in any local pharmacy or grocer. Pending Studies at Discharge: No Stand-Alone Forms: My [facility] Medications and DC Order Prescriptions: Continued pioglitazone [Actos] 30 mg Tablet 30 mg PO QAM RF: 0 acetaminophen [Tylenol Extra Strength] 500 mg Tablet 500 mg PO Q6H PRN (Reason: Pain) RF: 0 Avastin 25 mg/mL Solution 0 mg IV UD RF: 0 Jardiance 10 mg tablet 10 mg PO QAM RF: 0 prochlorperazine maleate [Compazine] 10 mg tablet 10 mg PO AMHS RF: 0 oxycodone-acetaminophen 5-325 mg Tablet 1 tab PO Q6 PRN (Reason: Pain) RF: 0 ferrous sulfate 325 mg (65 mg iron) Tablet 325 mg PO Q2D RF: 0 diphenoxylate-atropine 2.5-0.025 mg tablet 1 tab PO QID PRN (Reason: Diarrhea) RF: 0 hyoscyamine sulfate [Levsin] 0.125 mg tablet 0.125 mg PO Q6H PRN (Reason: CRAMPING) RF: 0 cyanocobalamin (vitamin B-12) [Vitamin B-12] 500 mcg Tablet 500 mcg PO QAM RF: 0 morphine 15 mg tablet extended release 15 mg PO Q12H RF: 0 potassium chloride [Klor-Con M10] 10 mEq tablet,ER particles/crystals 10 meq PO BID RF: 0 omeprazole 20 mg Tablet,Delayed Release (Dr/Ec) 20 mg PO QAM RF: 0 irinotecan 40 mg/2 mL Solution 0 mg IV UD RF: 0 ondansetron HCl 8 mg tablet 8 mg PO Q8 PRN (Reason: Nausea And Vomiting) RF: 0 Discharge Orders: Discharge Order (Routine); Ordered 05/11/20 Ordered By: Keke Ahmadi/Other Patient Handouts: Managing Type 2 Diabetes Admission Data Admit Date/Time: 05/06/20 03:19 Attending Provider: Keke Sutton Admit Provider: Joshua Hernandez Primary Care Provider: Duong Matt Other Providers: Joshua Hernandez ; Leanne Montes ; Sherrie James ; Samm Huitron ; Angelic Zabala ; Humberto Hawley ; Lexa Adame ; Pricila Lu ; Heladio Nelson ; Mykel Coulter ; Ceci Patrick ; Corrina Cunningham. ; Silvia Verde S. ; Jacob,Sowmya ; Dillon Wong ; Salimi,Kash ; Hazel Mojica E ; Hallie Hargrove ; Loren Obando ; Li Forde ; Tiesha Pool ; Marta Kaminski ; Ji Byrd ; Jimmy Quesada ; Christopher Dwyer ; Samuel De Guzman ; Katie De Guzman ; Sage Garnica ; Angi Rodriges ; Sarabjit Peralta ; Mikey Granados ; Gatito Marrero ; Pascual Borjas ; Bernice Brown ; Bonilla Moss ; Kimi Blanco ; Jessie Moss ; Js Alex ; Catalina Meneses ; Jamshid Yadav. ; Em Devlin ; Yvette Goncalves ; Catalina Iqbal. ; Halie Montes ; Robin Hurtado ; Olya Singletary A ; Kat Reyes A ; Louisa Mandel ; Saloni Berman A ; Manjinder Berman V ; Geronimo Sanchez ; Loren Ray ; Bjorn Marroquin ; River [place] ; Hank Teague ; Jenifer Martinez A ; Manjinder Carlson ; Rob Brown ; Gary Sanchez ; Louisa Xavier ; Oxana Undewrood. ; Moo Velazquez ; Julian Borjas ; Gerda Rueda. ; Glenroy Veliz ; Yenifer Young ; Zach Muniz ; Alvaro Chand ; Jessie Nicole
== END 2020-05-11 18:41 | disposition home or self-care (01) | DRG 374 ==
LOC: ED 23:37 → SUATTDRO 05-06 03:19 → 2E 05-06 03:19

== ENCOUNTER 2020-08-25 18:35 | Inpatient (IN) ==
[2020-08-25] MEDS ORDERED: SODIUM CHLORIDE 0.9% 1000ML 2,000 ML IV ONE (18:56)
[2020-08-25] MEDS ORDERED: CEFEPIME 2,000 MG/20 ML VIAL IV STA (18:58)
--- NOTE | 2020-08-25 19:04 | Emergency Department Note ---
Impression & Plan Immunocompromised, Abdominal pain, Inflammation of bladder, Acute hypotension ED Provider Note NAME: VISHAL LEO AGE: 60 SEX: M : 1960 ARRIVES VIA: Walk-In INFORMANT: Patient ED PROVIDER(S): Sukhjinder Tomlinson DO CHIEF COMPLAINT: fever and abdominal pain HPI: Patient is a 60-year-old male who presents to the ER with metastatic colon cancer. Last dose of chemotherapy was Friday. He started having lower abdominal pain. History of diverticulitis. Had a fever today of 101 at home. Pain is constant worse with palpation. Admits to nausea but no vomiting. No dysuria, urgency or frequency. Does have a history of a previous perforation. No other exacerbating or remitting factors. ROS: See above HPI for pertinent positives & negatives. A total of 10 systems reviewed and were otherwise negative. PAST MEDICAL HISTORY:See Below PAST SURGICAL HISTORY:See Below FAMILY HISTORY:See Below SOCIAL HISTORY:See Below HOME MEDICATIONS:See Below ALLERGIES:See Below VITALS:See Below PHYSICAL EXAMINATION: GENERAL: Sitting up in bed, alert, febrile, chronically ill-appearing, mild distress EYE EXAM: normal conjunctiva. PERRL and EOM's grossly intact. OROPHARYNX: no exudate, no erythema, lips, buccal mucosa, and tongue normal and mucous membranes are moist NECK: supple, no nuchal rigidity, no adenopathy, non-tender LUNGS: Clear to auscultation. Normal chest wall mechanics HEART: no murmurs, S1 normal and S2 normal ABDOMEN: abdomen soft, tender palpation left lower quadrant normo-active bowel sounds, no masses, no rebound or guarding. UPPER EXTREMITIES: upper extremities are grossly normal. LOWER EXTREMITIES: No pitting edema. NEURO EXAM: Normal sensorium, cranial nerves II-XII grossly intact, normal speech, no gross weakness of arms, no gross weakness of legs. MEDICAL DECISION MAKING: Patient is a 60-year-old male with history of metastatic colon cancer presents the ER for abdominal pain and fever. On presentation he was found to be hypotensive with systolic pressures in the 90s. Upon review of his chart he normally runs in the low 100s. Labs show mild leukopenia at 3000 and a mild anemia at 9.7. INR was unremarkable. BMP with mild hyponatremia. LFTs bilirubin was unremarkable. Lactic acid was normal at 1.6. Troponin was negative. Procalcitonin was elevated at 1. Covid was negative. CT abdomen pelvis shows cystitis with likely pyelonephritis. Patient upon presentation was given 2 L IV fluids as well as IV cefepime. He was updated bedside. Discussed with hospitalist admitted for further work-up. UA eventually resulted after admission and was negative. Triage Nursing notes reviewed. Limited review of prior medical records performed Vital Signs: reviewed and remarkable for hypotension Differential diagnosis: Differential diagnosis includes etiologies such as sepsis, UTI, pneumonia, metabolic, electrolyte abnormalities, cardiac sources, intracerebral event, toxicologic, neurological, as well as others were entertained. ER treatment provided: See below Diagnostics interpreted by me: ECG: Sinus rhythm rate 76 Left axis No PVCs QTC 396 Cardiac Monitoring: An order was placed for continuous cardiac monitoring. The monitor shows a rate of 72 with sinus rhythm. Laboratory studies: As stated above and show below. Imaging studies: CT abdomen pelvis shows pyelonephritis Consultation(s): Discussed with the hospitalist for further evaluation Procedures: none Critical Care: None Past Med/Surg History Medical History (Updated 08/25/20 @ 22:46 by Sukhjinder Tomlinson DO) Acute lower GI bleeding Anxiety C. difficile colitis hx ~2018. 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 Depression Diverticulitis of colon with perforation NO SURGERY DM type 2 (diabetes mellitus, type 2) Dyslipidemia Immunocompromised Kidney stones Obesity Osteoarthritis Pancytopenia Follows with heme Splenomegaly r/t chemotherapy Surgical History History of colonoscopy History of cystoscopy STONE REMOVAL WITH STENT PLACED History of esophagogastroduodenoscopy (EGD) History of tooth extraction History of vascular access device RIGHT UPPER CHEST PLACED 09/2018 Hx of hernia repair Hx of tonsillectomy Family History Mother , Age 62 Breast cancer Father , Age 62 Stroke Sister Family history of diabetes mellitus Brother Family history of diabetes mellitus Brother Family history of diabetes mellitus Other No family history of adverse response to anesthesia Social History Smoking Status: Former smoker Tobacco Type: Cigarettes Second Hand Exposure: Yes (sometimes); Hx Alcohol Use: No Hx Substance Use: Yes Preferred Language: Slovenian Communication Ability: Effective Visual Impairment: No Limitations Refrigeration Houseman Required: No Beliefs That Will Affect Care: None marital status: Current Living Situation: Family Current Living Situation Comment: daughter lives with patient Feels Safe at Home: Yes Assistive Devices: None Allergies Allergies Allergy/AdvReac Type Severity Reaction Status Date / Time No Known Allergies Allergy Verified 08/25/20 19:38 Home Meds Home Medications Medication Instructions Recorded Confirmed pioglitazone [Actos] 30 mg PO QAM 04/18/18 08/25/20 ferrous sulfate 325 mg PO BID 10/02/18 08/25/20 Jardiance 10 mg PO QAM 08/31/19 08/25/20 oxycodone-acetaminophen 1 tab PO Q6 PRN 12/27/19 08/25/20 prochlorperazine maleate 10 mg PO Q6H PRN 12/27/19 08/25/20 [Compazine] cyanocobalamin (vitamin B-12) 500 mcg PO QAM 02/11/20 08/25/20 [Vitamin B-12] diphenoxylate-atropine 1 tab PO QID PRN 02/11/20 08/25/20 hyoscyamine sulfate [Levsin] 0.125 mg PO Q6H PRN 02/11/20 08/25/20 morphine 15 mg PO Q12H 04/01/20 08/25/20 ondansetron HCl 8 mg PO Q8H PRN 05/06/20 08/25/20 mirtazapine 15 mg PO HS 06/23/20 08/25/20 spironolactone 50 mg PO DAILY 06/23/20 08/25/20 Results & Data (ED) Vital Signs Vital Signs - 24 hr 08/25/20 18:38 08/25/20 19:48 08/25/20 20:29 Temperature 37.6 C H Temperature Source Temporal Artery Scan Pulse Rate 63 76 84 Pulse Rate from SpO2 Sensor 74 85 Respiratory Rate 20 15 18 Respiratory Effort / Characteristics Respiratory Depth Normal Blood Pressure 90/62 L 91/52 L 111/69 Blood Pressure Mean 71 65 83 Pulse Oximetry 97 99 98 Oxygen Delivery Method Room Air Room Air Room Air Sepsis Recent Fever Within 48 Hours Yes Sepsis New/Unexplained Change in Mental Status Yes Sepsis Action Taken by Nursing No Action Required 08/25/20 20:30 08/25/20 21:00 08/25/20 21:31 Temperature Temperature Source Pulse Rate 85 85 Pulse Rate from SpO2 Sensor 82 85 Respiratory Rate 16 18 Respiratory Effort / Characteristics Non-Labored Respiratory Depth Blood Pressure 110/72 95/60 L Blood Pressure Mean 84 71 Pulse Oximetry 100 97 Oxygen Delivery Method Room Air Room Air Sepsis Recent Fever Within 48 Hours Sepsis New/Unexplained Change in Mental Status Sepsis Action Taken by Nursing Laboratory Data Result diagrams: 08/25/20 19:12 08/25/20 19:12 Lab Results 08/25/20 08/25/20 08/25/20 Range/Units 19:12 19:12 19:12 WBC 3.04 L (4.8-10.8) K/uL RBC 3.19 L (4.7-6.1) M/uL Hgb 9.7 L (14.0-18.0) g/dL POC Hgb (14.0-18.0) g/dl Hct 30.3 L (42-52) % POC Hct (42-52) % MCV 95.0 (80-100) fL MCH 30.4 (25-34) pg MCHC 32.0 (32-36) g/dL RDW Std Deviation 57.9 H (36.4-46.3) fL RDW Coeff of Ivette 16.7 H (11.5-14.5) % Plt Count 79 L (130-400) K/uL MPV 8.7 (7.4-10.4) fL Immature Gran % (Auto) 0.0 % Neut % (Auto) 74.3 % Lymph % (Auto) 24.7 % [place] % (Auto) 1.0 % Eos % (Auto) 0.0 % Baso % (Auto) 0.0 % Neut # (Auto) 2.26 (1.4-6.5) K/uL Lymph # (Auto) 0.75 L (1.2-3.4) K/uL [place]ble # (Auto) 0.03 L (0.11-0.59) K/uL Eos # (Auto) 0.00 (0-0.5) K/uL Baso # (Auto) 0.00 (0-0.2) K/uL Immature Gran # (Auto) 0.00 (0.00-0.02) K/uL PT 10.6 (9.0-12.0) Seconds INR 1.0 (0.9-1.1) APTT 24.4 (21.0-31.0) Seconds PTT Ratio 0.9 POC Sodium (135-144) mmol/L Sodium 133 L (136-145) mmol/L POC Potassium (3.3-5.0) mmol/L Potassium 4.4 (3.5-5.1) mmol/L POC Chloride (101-112) mmol/L Chloride 99 (98-107) mmol/L Carbon Dioxide 26 (21-32) mmol/L POC Total CO2 (24-31) mmol/L Anion Gap 8.0 (3-11) POC Anion Gap (16-25) mmol/L POC BUN (7-18) mg/dl BUN 17 (7-18) mg/dl Creatinine 0.82 (0.6-1.4) mg/dl POC Creatinine (0.6-1.3) mg/dl Est Cr Clr Drug Dosing Not Reportable Est GFR ( Amer) 109.8 Est GFR (Non-Af Amer) 94.8 BUN/Creatinine Ratio 21.1 H (10-20) Glucose 120 H (70-99) mg/dl POC Glucose (other) (70-99) mg/dl Lactate (0.4-2.0) mmol/L Calcium 8.7 (8.5-10.1) mg/dl POC Ioniz Calcium Leonardo (1.12-1.32) mmol/l Magnesium 1.8 (1.8-2.4) mg/dl Total Bilirubin 0.9 (0.2-1) mg/dl AST 18 (15-37) U/L ALT 21 (12-78) U/L Alkaline Phosphatase 127 H (45-117) U/L Troponin I < 0.015 (0-0.045) ng/ml Total Protein 6.4 (6.4-8.2) gm/dl Albumin 2.8 L (3.4-5.0) gm/dl Globulin 3.6 (2.5-4.0) gm/dl Albumin/Globulin Ratio 0.8 L (0.9-2) Procalcitonin (0-0.5) ng/ml Urine Color Urine Appearance (Clear) Urine pH (4.5-7.5) Ur Specific [place] (1.000-1.030) Urine Protein (Negative) Urine Glucose (UA) (Negative) Urine Ketones (Negative) Urine Blood (Negative) Urine Nitrite (Negative) Urine Bilirubin (Negative) Urine Urobilinogen (Negative) Ur Leukocyte Esterase (Negative) COVID-19 Eval Order SARS-CoV-2, RNA, NAAT (NEGATIVE) 08/25/20 08/25/20 08/25/20 Range/Units 19:12 19:12 19:22 WBC (4.8-10.8) K/uL RBC (4.7-6.1) M/uL Hgb (14.0-18.0) g/dL POC Hgb 9.9 L (14.0-18.0) g/dl Hct (42-52) % POC Hct 29 L (42-52) % MCV (80-100) fL MCH (25-34) pg MCHC (32-36) g/dL RDW Std Deviation (36.4-46.3) fL RDW Coeff of Ivette (11.5-14.5) % Plt Count (130-400) K/uL MPV (7.4-10.4) fL Immature Gran % (Auto) % Neut % (Auto) % Lymph % (Auto) % [place] % (Auto) % Eos % (Auto) % Baso % (Auto) % Neut # (Auto) (1.4-6.5) K/uL Lymph # (Auto) (1.2-3.4) K/uL [place] # (Auto) (0.11-0.59) K/uL Eos # (Auto) (0-0.5) K/uL Baso # (Auto) (0-0.2) K/uL Immature Gran # (Auto) (0.00-0.02) K/uL PT (9.0-12.0) Seconds INR (0.9-1.1) APTT (21.0-31.0) Seconds PTT Ratio POC Sodium 129 L (135-144) mmol/L Sodium (136-145) mmol/L POC Potassium 4.3 (3.3-5.0) mmol/L Potassium (3.5-5.1) mmol/L POC Chloride 94 L (101-112) mmol/L Chloride (98-107) mmol/L Carbon Dioxide (21-32) mmol/L POC Total CO2 25 (24-31) mmol/L Anion Gap (3-11) POC Anion Gap 16.0 (16-25) mmol/L POC BUN 18 (7-18) mg/dl BUN (7-18) mg/dl Creatinine (0.6-1.4) mg/dl POC Creatinine 0.9 (0.6-1.3) mg/dl Est Cr Clr Drug Dosing Est GFR ( Amer) Est GFR (Non-Af Amer) BUN/Creatinine Ratio (10-20) Glucose (70-99) mg/dl POC Glucose (other) 122 H (70-99) mg/dl Lactate 1.6 (0.4-2.0) mmol/L Calcium (8.5-10.1) mg/dl POC Ioniz Calcium Leonardo 1.19 (1.12-1.32) mmol/l Magnesium (1.8-2.4) mg/dl Total Bilirubin (0.2-1) mg/dl AST (15-37) U/L ALT (12-78) U/L Alkaline Phosphatase (45-117) U/L Troponin I (0-0.045) ng/ml Total Protein (6.4-8.2) gm/dl Albumin (3.4-5.0) gm/dl Globulin (2.5-4.0) gm/dl Albumin/Globulin Ratio (0.9-2) Procalcitonin 1.05 H (0-0.5) ng/ml Urine Color Urine Appearance (Clear) Urine pH (4.5-7.5) Ur Specific [place] (1.000-1.030) Urine Protein (Negative) Urine Glucose (UA) (Negative) Urine Ketones (Negative) Urine Blood (Negative) Urine Nitrite (Negative) Urine Bilirubin (Negative) Urine Urobilinogen (Negative) Ur Leukocyte Esterase (Negative) COVID-19 Eval Order SARS-CoV-2, RNA, NAAT (NEGATIVE) 08/25/20 08/25/20 08/25/20 Range/Units 19:35 19:35 20:40 WBC (4.8-10.8) K/uL RBC (4.7-6.1) M/uL Hgb (14.0-18.0) g/dL POC Hgb (14.0-18.0) g/dl Hct (42-52) % POC Hct (42-52) % MCV (80-100) fL MCH (25-34) pg MCHC (32-36) g/dL RDW Std Deviation (36.4-46.3) fL RDW Coeff of Ivette (11.5-14.5) % Plt Count (130-400) K/uL MPV (7.4-10.4) fL Immature Gran % (Auto) % Neut % (Auto) % Lymph % (Auto) % [place] % (Auto) % Eos % (Auto) % Baso % (Auto) % Neut # (Auto) (1.4-6.5) K/uL Lymph # (Auto) (1.2-3.4) K/uL [place] # (Auto) (0.11-0.59) K/uL Eos # (Auto) (0-0.5) K/uL Baso # (Auto) (0-0.2) K/uL Immature Gran # (Auto) (0.00-0.02) K/uL PT (9.0-12.0) Seconds INR (0.9-1.1) APTT (21.0-31.0) Seconds PTT Ratio POC Sodium (135-144) mmol/L Sodium (136-145) mmol/L POC Potassium (3.3-5.0) mmol/L Potassium (3.5-5.1) mmol/L POC Chloride (101-112) mmol/L Chloride (98-107) mmol/L Carbon Dioxide (21-32) mmol/L POC Total CO2 (24-31) mmol/L Anion Gap (3-11) POC Anion Gap (16-25) mmol/L POC BUN (7-18) mg/dl BUN (7-18) mg/dl Creatinine (0.6-1.4) mg/dl POC Creatinine (0.6-1.3) mg/dl Est Cr Clr Drug Dosing Est GFR ( Amer) Est GFR (Non-Af Amer) BUN/Creatinine Ratio (10-20) Glucose (70-99) mg/dl POC Glucose (other) (70-99) mg/dl Lactate (0.4-2.0) mmol/L Calcium (8.5-10.1) mg/dl POC Ioniz Calcium Leonardo (1.12-1.32) mmol/l Magnesium (1.8-2.4) mg/dl Total Bilirubin (0.2-1) mg/dl AST (15-37) U/L ALT (12-78) U/L Alkaline Phosphatase (45-117) U/L Troponin I (0-0.045) ng/ml Total Protein (6.4-8.2) gm/dl Albumin (3.4-5.0) gm/dl Globulin (2.5-4.0) gm/dl Albumin/Globulin Ratio (0.9-2) Procalcitonin (0-0.5) ng/ml Urine Color Yellow Urine Appearance Clear (Clear) Urine pH 5.0 (4.5-7.5) Ur Specific [place] > 1.045 H (1.000-1.030) Urine Protein Negative (Negative) Urine Glucose (UA) 3+ H (Negative) Urine Ketones Negative (Negative) Urine Blood Negative (Negative) Urine Nitrite Negative (Negative) Urine Bilirubin Negative (Negative) Urine Urobilinogen Negative (Negative) Ur Leukocyte Esterase Negative (Negative) COVID-19 Eval Order Cov[facility] SARS-CoV-2, RNA, NAAT NEGATIVE (NEGATIVE) Administered Medications Discontinued Medications Sodium Chloride (Nss 1000ml) 2,000 mls @ 999 mls/hr IV .Q2H1M ONE Stop: 08/25/20 20:56 Last Admin: 08/25/20 20:30 Dose: 999 mls/hr Documented by: [id number] Cefepime HCl (Maxipime) 2,000 mg in 20 mls @ 5 mls/min IV NOW STA; Protocol Stop: 08/25/20 19:01 Last Admin: 08/25/20 20:30 Dose: 5 mls/min Documented by: [id number] Ioversol (Ioversol 100ml) 93 ml IV ONCE ONE Stop: 08/25/20 20:00 Last Admin: 08/25/20 19:59 Dose: 93 ml Documented by: [id number] Discharge Plan Visit Data Chief Complaint: Illness Stated Complaint: fever, nausea, hypotension ED Provider: Sukhjinder Tomlinson Discharge Problem: Immunocompromised, Abdominal pain, Inflammation of bladder, Acute hypotension Discharge Instructions Interventions: ED Discharge Assessment Last Done: 08/25/20 22:38 Forms Stand Alone Forms: [facility] Prescriptions Prescriptions: No Action pioglitazone [Actos] 30 mg Tablet 30 mg PO QAM RF: 0 Jardiance 10 mg tablet 10 mg PO QAM RF: 0 prochlorperazine maleate [Compazine] 10 mg tablet 10 mg PO Q6H PRN (Reason: Nausea) RF: 0 oxycodone-acetaminophen 5-325 mg Tablet 1 tab PO Q6 PRN (Reason: Pain-Mild/Moderate) RF: 0 mirtazapine 15 mg tablet 15 mg PO HS RF: 0 spironolactone 50 mg tablet 50 mg PO DAILY RF: 0 ferrous sulfate 325 mg (65 mg iron) Tablet 325 mg PO BID RF: 0 diphenoxylate-atropine 2.5-0.025 mg tablet 1 tab PO QID PRN (Reason: Diarrhea) RF: 0 hyoscyamine sulfate [Levsin] 0.125 mg tablet 0.125 mg PO Q6H PRN (Reason: Cramping) RF: 0 cyanocobalamin (vitamin B-12) [Vitamin B-12] 500 mcg Tablet 500 mcg PO QAM RF: 0 morphine 15 mg tablet extended release 15 mg PO Q12H RF: 0 ondansetron HCl 8 mg tablet 8 mg PO Q8H PRN (Reason: Nausea And Vomiting) RF: 0 Discharge Problem: Abdominal pain Qualifiers: Abdominal location: unspecified location Qualified Code(s): R10.9 - Unspecified abdominal pain
[2020-08-25 19:24] LABS: Hematocrit (blood only) 30.3 % (42-52); Hemoglobin 9.7 g/dL (14.0-18.0); Mean Corpuscular Hemoglobin 30.4 pg (25-34); RDW Coefficient of Variation 16.7 % (11.5-14.5); RDW Standard Deviation 57.9 fL (36.4-46.3); Red Blood Count 3.19 M/uL (4.7-6.1); White Blood Count 3.04 K/uL (4.8-10.8)
[2020-08-25 19:25] LABS: Mean Platelet Volume 8.7 fL (7.4-10.4); Platelet Count 79 K/uL (130-400)
[2020-08-25 19:39] LABS: iSTAT Creatinine 0.9 mg/dl (0.6-1.3); iSTAT Hemoglobin 9.9 g/dl (14.0-18.0); iSTAT Ionized Calcium 1.19 mmol/l (1.12-1.32); iSTAT Potassium 4.3 mmol/L (3.3-5.0)
[2020-08-25 19:40] LABS: Lymphocytes # (auto) 0.75 K/uL (1.2-3.4); Lymphocytes % (auto) 24.7 %; Monocytes # (auto) 0.03 K/uL (0.11-0.59); Neutrophils # (auto) 2.26 K/uL (1.4-6.5); Neutrophils % (auto) 74.3 %
[2020-08-25 19:41] LABS: Alanine Aminotransferase 21 U/L (12-78); Albumin Level 2.8 gm/dl (3.4-5.0); Aspartate Aminotransferase 18 U/L (15-37); BUN Creatinine Ratio 21.1 (10-20); Blood Urea Nitrogen 17 mg/dl (7-18); Calcium 8.7 mg/dl (8.5-10.1); Carbon Dioxide 26 mmol/L (21-32); Chloride 99 mmol/L (98-107); Est GFR (African American) 109.8; Est GFR (Non-African American) 94.8; Glucose 120 mg/dl (70-99); Magnesium 1.8 mg/dl (1.8-2.4); Potassium 4.4 mmol/L (3.5-5.1); Sodium 133 mmol/L (136-145)
[2020-08-25 19:46] LABS: Albumin Globulin Ratio 0.8 (0.9-2); Alkaline Phosphatase 127 U/L (45-117); Bilirubin,Total 0.9 mg/dl (0.2-1); Globulin 3.6 gm/dl (2.5-4.0); Partial Thromboplastin Ratio 0.9; Partial Thromboplastin Time 24.4 Seconds (21.0-31.0); Prothrombin Time 10.6 Seconds (9.0-12.0); Total Protein 6.4 gm/dl (6.4-8.2); Troponin I < 0.015 ng/ml (0-0.045)
--- NOTE | 2020-08-25 19:51 | XRay Report ---
XR chest 1V portable HISTORY: 60 years-old Male SEPSIS acute sepsis COMPARISON: Chest radiograph 05/06/2020 TECHNIQUE: Portable AP view of the chest FINDINGS: Cardiac silhouette is upper limits of normal in size. Left subclavian Rttoxo-a-Kauf catheter is in st able positioning. No pneumothorax, pleural effusion or overt pulmonary edema. Mild retrocardiac opaci ties. Degenerative changes of the shoulders and spine. IMPRESSION: Mild retrocardiac opacities favor atelectasis. ACT 112: Negative or not required by law. The above report was generated using voice recognition software. It may contain grammatical, syntax o r spelling errors. Electronically signed by: Nahum Higgins M.D. 08/25/2020 7:49 PM
[2020-08-25] MEDS ORDERED: OPTIRAY 320 100ml IV ONE (19:59)
--- NOTE | 2020-08-25 20:28 | CT Scan Report ---
ABDOMEN AND PELVIS CT WITH IV CONTRAST CT DOSE: 626.94 mGycm HISTORY: Acute generalized abdominal pain with sepsis. History of colon cancer. abd pain septic TECHNIQUE: Multiaxial CT images of the abdomen and pelvis were performed following the IV administrat ion of 93 cc of Optiray 320, A dose lowering technique was utilized adhering to the principles of AL DHRUV. COMPARISON STUDY: PET CT 05/17/2020, CT abdomen and pelvis 05/06/2020 FINDINGS: Progressively worsened bibasilar pulmonary nodules included conglomerate nodules of the bas al left lower lobe measuring up to 1.3 x 2.9 cm. Left lower lobe mucous plugging with patchy groundgl ass densities. Subpleural 9 mm nodule of the right middle lobe previously measured 6 mm. There is no pneumatosis or pneumoperitoneum. Coronary artery calcifications with trace pericardial effusion. Mild marginal nodularity of the liver redemonstrated. Patency of the hepatic and portal veins. No hep atic metastasis identified. Cholelithiasis without CT evidence of acute cholecystitis. No biliary javier leonie dilation. Unremarkable adrenal glands. The spleen is enlarged measuring up to 17.5 cm. Upper abdo chinedu varices. Moderate generalized pancreatic atrophy. Asymmetric atrophy with cortical thinning of the left kidney. There is mild urothelial thickening not ed within the left renal pelvis and renal collecting system. There are 2 nonobstructing calculi of th e left kidney measuring up to 10 mm. There are a few suggested bilateral renal cysts. Indeterminate 5 mm exophytic hyperdense lesion of the posterior interpolar right kidney is too small to characterize and appears stable. No hydronephrosis. Urinary bladder wall thickening with perivesicular stranding. Prominent prostate. No aortic aneurysm. Prominent and mildly enlarged retroperitoneal lymph nodes in cluding index 1.6 x 1.1 cm periaortic lymph node on image 143 series 3 which previously measured up t o 7 mm. Index left iliac chain lymph node on image 314 series 3 measures 1.9 x 1.0 cm, previously 1.6 x 0.7 cm. Small hiatal hernia with mild wall thickening of the distal esophagus. No bowel obstruction. Circumfe rential wall thickening of the rectum is a chronic finding with mild perirectal stranding. Irregular wall thickening of the sigmoid colon correlating with the area of known neoplasm redemonstrated with stable positioning of the colonic stent. Wall thickening of the descending colon proximal to the sten t is redemonstrated along with pericolonic stranding. Moderate fecal retention. There is mild focal w all thickening noted within the hepatic flexure on image 130 series 3 which may be secondary to parti al distention. Normal appendix. Equivocal nodularity of the omentum adjacent to the sigmoid colon wit h mild peritoneal thickening. Tiny fat filled periumbilical hernia. No acute fracture or new suspicious bone lesion. IMPRESSION: 1. Urinary bladder wall thickening with perivesicular stranding is noted in conjunction with urotheli al thickening of the left renal collecting system and ureter. Findings are suggestive of cystitis wit h ascending pyelitis/ureteritis. 2. Stable positioning of the colonic stent traversing the known neoplasm of the proximal sigmoid colo n. No bowel obstruction. 3. Progressive metastatic disease includes increased size of the bibasilar pulmonary nodules with pro gressive lymphatic metastasis. 4. Mucous plugging of the left lower lobe with basal left lower lobe reticular nodular densities. A s uperimposed infectious laboratory process is not excluded. 5. Cholelithiasis. 6. Nonobstructing left nephrolithiasis. 7. Additional findings as above. ACT 112: Negative or not required by law. The above report was generated using voice recognition software. It may contain grammatical, syntax o r spelling errors. Electronically signed by: Nahum Higgins M.D. 08/25/2020 8:26 PM
[2020-08-25 22:31] LABS: Appearance Urine Clear (Clear); Bilirubin Urine Negative (Negative); Blood Urine Negative (Negative); Color Urine Yellow; Glucose Urine UA 3+ (Negative); Ketones Urine Negative (Negative); Leukocyte Esterase Urine Negative (Negative); Nitrite Urine Negative (Negative); Protein Urine Negative (Negative); Specific Gravity Urine > 1.045 (1.000-1.030); Urobilinogen Urine Negative (Negative)
[2020-08-25] MEDS ORDERED: DIPHENOXYLATE/ATROPINE 2.5/0.025MG TAB PO PRN (23:40)
[2020-08-25] MEDS ORDERED: NITROGLYCERIN SL 0.4 MG/TAB TAB SL PRN (23:40)
[2020-08-25] MEDS ORDERED: GLUCOSE 40% GEL 15 GM TUBE PO PRN (23:45)
[2020-08-25] MEDS ORDERED: GLUCOSE 10 TABS/TUBE PO PRN (23:45)
[2020-08-25] MEDS ORDERED: GLUCAGON FOR INJ 1 MG VIAL SQ PRN (23:45)
[2020-08-25] MEDS ORDERED: DEXTROSE 50% 50 ML SYRINGE IV PRN (23:45)
[2020-08-25] MEDS ORDERED: CEFEPIME CONSULT ACTIVE PRN (23:47)
[2020-08-25] MEDS: ONDANSETRON INJ 2 MG/ML 2 ML VIAL IV PRN (23:58)
[2020-08-25] MEDS: ACETAMINOPHEN 325 MG TAB PO PRN (23:58)
[2020-08-25] MEDS: MoRPHine SULFATE CR 15 MG TABCR PO SCH (23:59)
[2020-08-26] MEDS: SODIUM CHLORIDE 0.9% 1000ML 1,000 ML IV SCH ×4 (00:03→18:19)
[2020-08-26] MEDS: DOXYCYCLINE HYCLATE 100 MG in DEXTROSE 5% 100 ML IV SCH ×3 (00:30→20:24)
--- NOTE | 2020-08-26 02:11 | History and Physical Report ---
DATE OF ADMISSION: 08/25/2020 CHIEF COMPLAINT: Not feeling well, fever. 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 The patient lives with daughter. Comes here because of fever, temperature 101 degrees at home and some nausea and some abdominal discomfort. His urine was yellow, denies any burning micturition, no hematuria. Somewhat constipated. Has some mild headache. No blurred vision, no earache, no runny nose, no sore throat, no loss of sense of smell or taste. No dysphagia. Appetite is not that great. No chest pain, no shortness of breath. Ambulates with the help of walker at home. No rash. Blood pressure was on the lower side when he came in the 90s. He had a temperature spike of 37.6 in the ER. Generally, his blood pressure runs in low 100s. Saturating fine on room air. ALLERGIES: No known drug allergies. PAST MEDICAL HISTORY: As mentioned above. PAST SURGICAL HISTORY: Colonoscopy with biopsies, cystoscopy with left ureteral stent, EGD with endoscopic ultrasound, removal of kidney stone, tonsillectomy, adenoidectomy, repair of inguinal hernia. MEDICATIONS: The patient is on vitamin B12 500 mcg p.o. a.m., Lomotil 1 tablet p.o. q.i.d. p.r.n., ferrous sulfate 325 mg p.o. b.i.d., Levsin 0.125 mg p.o. q. 6 hours p.r.n., Jardiance 10 mg p.o. a.m., mirtazapine 15 mg at p.o. at bedtime, morphine 15 mg p.o. b.i.d., Zofran 8 mg p.o. q. 8 hours p.r.n., oxycodone/acetaminophen 5/325 mg one tablet every 6 hours p.r.n., Actos 30 mg p.o. a.m., Compazine 10 mg p.o. q. 6 hours p.r.n., spironolactone 50 mg p.o. daily. FAMILY HISTORY: Significant for mother had breast cancer; father had stroke; sister has diabetes. SOCIAL HISTORY: , currently lives with his daughter. Former smoker. No alcohol use. REVIEW OF SYSTEMS: As per HPI. Rest of the review of systems negative. PHYSICAL EXAMINATION: GENERAL: The patient is of moderate built, not in acute distress. VITAL SIGNS: Temperature 37.6, pulse 85, respiratory rate 18, blood pressure 95/60, oxygen 97% on room air. HEENT: Pupils are equal, round, and reactive to light. Oral mucosa moist. NECK: No neck masses. CARDIOVASCULAR: S1, S2 heard. Regular rate and rhythm. No murmur, no gallop. RESPIRATORY SYSTEM: Normal AP diameter. No accessory muscle use. No wheezing, no crackles. ABDOMEN: Soft, bowel sounds present. Mild diffuse abdominal discomfort. No guarding, no rigidity, no distention. CENTRAL NERVOUS SYSTEM: Cranial nerves II-XII grossly intact, nonfocal. EXTREMITIES: No edema, no erythema. LABORATORY DATA: WBC 3.04, hemoglobin 9.7, hematocrit 30.3, platelets 79. PT 10.6, INR 1, APTT 24.4. Sodium 133, potassium 4.4, chloride 99, bicarbonate 26, BUN 17, creatinine 0.8, serum glucose 120, lactate 1.6, calcium 8.7, magnesium 1.8, total bilirubin 0.9, AST 8, ALT 21, alkaline phosphatase 127. Troponin I less than 0.015. Procalcitonin 1.05. Urinalysis pending. SARS-CoV-2 negative. IMAGING DATA: Chest x-ray, mild retrocardiac opacity, favor atelectasis. Urinary bladder wall thickening with perivesical stranding noted in conjunction with urothelial thickening of the left renal collecting system and ureter. Findings are suggestive of cystitis with ascending pyelitis or ureteritis. Stable position of the colonic stent, . No neoplasm of the proximal sigmoid colon, no bowel obstruction. Progressive metastatic disease, includes increased size of the bibasilar pulmonary nodules with progressive lymphatic metastases. Mucous plugging of the left lower lobe superimposed infection, not excluded. Nonobstructing left nephrolithiasis, cholelithiasis. EKG: Normal sinus rhythm with sinus arrhythmia at a rate of 76. ASSESSMENT AND PLAN: This is a 60-year-old male with metastatic colon cancer, on chemo, who presents with fever and cough with phlegm and also pyelitis. 1. Fever, possible sepsis with fever, leukopenia, and hypotension: Lactic acid is normal. ER started him on cefepime, which he will continue. It could be from pyelitis or pneumonia. Also add doxycycline. We will follow the cultures. We will continue IV fluids at 125 mL per hour. Monitor hemodynamics on the tele floor. 2. Pyelitis: We will follow the urinalysis, follow the urine cultures. Antibiotics as above and consult urology for further recommendations. 3. Possible pneumonia and mucus plugging on CAT scan of the abdomen and pelvis: We will do a CT chest. The patient has some cough with whitish phlegm. We will add doxycycline to his regimen and follow the response. 4. Metastatic colon cancer stage IV: Follows with hematology/oncology, had last chemo on Friday. 5. History of diabetes: Hold his home p.o. medication, placed on insulin sliding scale. Follow the blood sugars, follow the HbA1c levels. 6. Depression: Continue his mirtazapine. 7. Chronic pain: Continue his home pain medications. 8. Pancytopenia: Mostly from chemo. We will follow the labs. 9. Deep venous thrombosis prophylaxis: Sequential compression devices. The patient has thrombocytopenia. DISPOSITION: Admit to tele floor. PT and OT prior to discharge. Expect to discharge home and follow with family doctor. Level 1 full code. MTDD
[2020-08-26 05:51] LABS: Hematocrit (blood only) 24.7 % (42-52); Mean Corpuscular Hemoglobin 30.7 pg (25-34); Mean Corpuscular Hgb Conc 32.4 g/dL (32-36); Mean Corpuscular Volume 94.6 fL (80-100); RDW Coefficient of Variation 16.6 % (11.5-14.5); RDW Standard Deviation 57.6 fL (36.4-46.3); Red Blood Count 2.61 M/uL (4.7-6.1); White Blood Count 1.77 K/uL (4.8-10.8)
[2020-08-26 05:56] LABS: Mean Platelet Volume 8.5 fL (7.4-10.4); Platelet Count 63 K/uL (130-400)
[2020-08-26 06:10] LABS: BUN Creatinine Ratio 22.5 (10-20); Calcium 8.1 mg/dl (8.5-10.1); Creatinine Clr Calc Pharmacy 109.7 ml/min; Est GFR (African American) 122.4; Est GFR (Non-African American) 105.6; Magnesium 1.7 mg/dl (1.8-2.4); Potassium 4.1 mmol/L (3.5-5.1)
[2020-08-26 06:18] LABS: Eosinophils # (auto) 0.01 K/uL (0-0.5); Eosinophils % (auto) 0.6 %; Lymphocytes # (auto) 0.69 K/uL (1.2-3.4); Monocytes # (auto) 0.11 K/uL (0.11-0.59); Monocytes % (auto) 6.2 %; Neutrophils # (auto) 0.96 K/uL (1.4-6.5); Neutrophils % (auto) 54.2 %
[2020-08-26 06:21] LABS: Estimated Average Glucose 120 mg/dl; Hemoglobin A1C 5.8 % (4.5-5.6)
[2020-08-26] MEDS ORDERED: SODIUM CHLORIDE 0.9% 500 ML IV SCH (07:00)
[2020-08-26] MEDS: PROCHLORPERAZINE MALEATE 10 MG TAB PO PRN (08:12)
[2020-08-26] MEDS: HYOSCYAMINE SULFATE 0.125 MG TAB PO PRN (08:12)
[2020-08-26] MEDS: INSULIN ASPART 100 UNITS/ML 3 ML PEN SC SCH ×4 (08:12→21:25)
[2020-08-26] MEDS: CYANOCOBALAMIN 500 MCG TABLET (VITAMIN B-12) PO SCH (08:12)
[2020-08-26] MEDS: FERROUS SULFATE 325 MG TAB PO SCH ×2 (08:12→20:24)
[2020-08-26] MEDS: MoRPHine SULFATE CR 15 MG TABCR PO SCH ×2 (08:17→20:23)
--- NOTE | 2020-08-26 08:42 | CT Scan Report ---
CT chest diagnostic wo con CT DOSE: 228.20 mGycm CLINICAL HISTORY: 60 years-old Male with pneumonuia, cough, fever. Acute cough and fever with pneumo benjamin TECHNIQUE: Multiaxial CT images of the chest were performed without contrast. A dose lowering techni que was utilized adhering to the principles of ALARA. COMPARISON: CT abdomen and pelvis of same day, Chest CT 06/23/2020 FINDINGS: Unremarkable thyroid. There are a few mildly prominent nonenlarged mediastinal lymph nodes. Left subclavian Eoeuew-g-Orur catheter distal tip terminates within the superior cavoatrial junction . Mild cardiomegaly with trace pericardial effusion. Extensive coronary artery calcifications. Fusifo rm dilation of the ascending thoracic aorta, 4.1 x 4.0 cm. No pneumothorax or pleural effusion. Mucous plugging with bronchial wall thickening of the left lower lobe is noted in conjunction with reticular nodular opacities with mild groundglass attenuation and consolidation in the basal left lower lobe. Numerous bilateral pulmonary nodules are redemonstrated. A subpleural 9 mm nodule of the right middle lobe previously measured 6 mm. Conglomerate 1.6 x 2.9 cm nodule the basal left lower lobe with nodules in this distribution previously noted measuring up to 9 mm. 10 mm left upper lobe pulmonary nodule on image 107 series 4 previously measured 4 mm. Central airways are patent. Splenomegaly. Hiatal hernia. Gynecomastia. Degenerative changes of the shoulders and spine. No acute fracture or suspicious bone lesion. IMPRESSION: 1. Bronchial wall thickening with mucous plugging of the left lower lobe is noted in addition to basa l left lower lobe reticular nodular, groundglass and consolidative opacities suggestive of an infecti ous or inflammatory pneumonitis. 2. Progressive bibasilar predominant pulmonary nodules as described above are suggestive of metastasi s. 3. Cardiomegaly with unchanged fusiform dilation of the ascending thoracic aorta, 4.1 x 4.0 cm. 4. Additional findings as above. ACT 112: Negative or not required by law. Electronically signed by: Nahum Higgins M.D. 08/26/2020 8:41 AM
[2020-08-26] MEDS ORDERED: CEFEPIME 2,000 MG in SYRINGE 0 ML IV SCH (09:00)
--- NOTE | 2020-08-26 12:41 | Urology Consultation ---
Date of Consultation August 26, 2020 Assessment & Plan (1) Inflammation of bladder: CT scan showed inflammation of the urinary tract with emphasis on the left side. No sign of obstruction. No indication for surgical intervention at this time. Cont IV fluid hydration. Abx. If he has difficulty urinating, check PVR. Follow up cultures. (2) Abdominal pain: History of Present Illness Attending Physician: Haydee Leyva MD 60 yo male with sig past med hx including met colon ca currently on chemo. Prestented to ER with fever 101, nausea, and abd pain. CT scan showed bladder showed: Urinary bladder wall thickening with perivesicular stranding is noted in conjunction with urothelial thickening of the left renal collecting system and ureter. Findings are suggestive of cystitis with ascending pyelitis/ureteritis. Pt denies any sig urologic complaints. NO hem. No dys. OK stream. No straining. He feels like he emtpies. Min urge and freq. No hx of stones or UTIs. He does not recall seeing a Urologist in the past. He was admitted and started IV fluids and abx. Cultures pending at this time. Allergies Allergy/AdvReac Type Severity Reaction Status Date / Time No Known Allergies Allergy Verified 08/25/20 19:38 Home Medications Medication Instructions Recorded Confirmed Type pioglitazone [Actos] 30 mg PO QAM 04/18/18 08/25/20 History ferrous sulfate 325 mg PO BID 10/02/18 08/25/20 History Jardiance 10 mg PO QAM 08/31/19 08/25/20 History oxycodone-acetaminophen 1 tab PO Q6 PRN 12/27/19 08/25/20 History prochlorperazine maleate 10 mg PO Q6H PRN 12/27/19 08/25/20 History [Compazine] cyanocobalamin (vitamin B-12) 500 mcg PO QAM 02/11/20 08/25/20 History [Vitamin B-12] diphenoxylate-atropine 1 tab PO QID PRN 02/11/20 08/25/20 History hyoscyamine sulfate [Levsin] 0.125 mg PO Q6H PRN 02/11/20 08/25/20 History morphine 15 mg PO Q12H 04/01/20 08/25/20 History ondansetron HCl 8 mg PO Q8H PRN 05/06/20 08/25/20 History mirtazapine 15 mg PO HS 06/23/20 08/25/20 History spironolactone 50 mg PO DAILY 06/23/20 08/25/20 History Patient History Medical History (Updated 08/25/20 @ 22:46 by Sukhjinder Tomlinson DO) Acute lower GI bleeding Anxiety C. difficile colitis hx ~2018. 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 Depression Diverticulitis of colon with perforation NO SURGERY DM type 2 (diabetes mellitus, type 2) Dyslipidemia Immunocompromised Kidney stones Obesity Osteoarthritis Pancytopenia Follows with heme Splenomegaly r/t chemotherapy Surgical History History of colonoscopy History of cystoscopy STONE REMOVAL WITH STENT PLACED History of esophagogastroduodenoscopy (EGD) History of tooth extraction History of vascular access device RIGHT UPPER CHEST PLACED 09/2018 Hx of hernia repair Hx of tonsillectomy Family History Mother , Age 62 Breast cancer Father , Age 62 Stroke Sister Family history of diabetes mellitus Brother Family history of diabetes mellitus Brother Family history of diabetes mellitus Other No family history of adverse response to anesthesia Social History Smoking Status: Former smoker Tobacco Type: Cigarettes Second Hand Exposure: Yes (sometimes); Hx Alcohol Use: No Hx Substance Use: No Preferred Language: Malay Communication Ability: Effective Visual Impairment: No Limitations [employer] Required: No Beliefs That Will Affect Care: None marital status: Current Living Situation: Family Current Living Situation Comment: Lives with daughter Other Information That Helps Us Care for You: No Feels Safe at Home: Yes Safety Concerns: Feels Safe At This Time Assistive Devices: None Review of Systems Review of Systems: All systems reviewed & are unremarkable except as noted in HPI & below Physical Exam Constitutional: WD/WN, vitals as above Eyes: PERRL, conjunctivae normal, anicteric sclerae ENMT: external ear and nose normal, oropharynx normal Neck: trachea midline, no thyromegaly Respiratory: normal respiratory effort, lungs clear to auscultation Cardiovascular: RRR, no murmur, no edema Gastrointestinal (Abdomen): normal bowel sounds, soft, nontender, no hepatosplenomegaly Skin: no rashes, warm and dry Neurologic: patellar DTR's 2+ bilat, sensation intact Genitourinary: no testicular masses, no penis abnormality Lymphatic: no cervical or axillary lymphadenopathy Results & Data ([facility]) Vital Signs (Past 12 Hours) Vital Signs Temp Pulse Pulse Resp BP BP Pulse Ox 08/26/20 12:05 37.0 C 77 18 85/62 L 98 08/26/20 08:26 66 08/26/20 08:10 114/68 08/26/20 07:32 36.8 C 68 18 88/55 L 98 08/26/20 03:48 36.7 C 68 16 74/47 L 70/51 L 98 PG Care Time/CCT Total # of Minutes Spent Total Time Spent with Patient: Total time spent is greater than 50% in coordination of care (as documented) at patient's floor/unit and/or counseling patient: 30 min Coding Level of Care Code 71202 Office/OBS Consult Lvl 3 Diagnoses Inflammation of bladder N30.90 Abdominal pain R10.9 Abdominal location: unspecified location (1) Abdominal pain Abdominal location: unspecified location Qualified Code(s): R10.9 - Unspecified abdominal pain
--- NOTE | 2020-08-26 13:06 | Electrocardiogram Report ---
Test Reason : Blood Pressure : / mmHG Vent. Rate : 076 BPM Atrial Rate : 076 BPM P-R Int : 174 ms QRS Dur : 072 ms QT Int : 352 ms P-R-T Axes : 001 -36 030 degrees QTc Int : 396 ms Normal sinus rhythm with sinus arrhythmia Left axis deviation Poor R wave progression, consider anterior HI vs. lead placement vs. LVH Abnormal ECG Confirmed by Anthony Ryder ([id number]) on 08/26/2020 1:06:06 PM Referred By: REFERRED SELF Confirmed By:Mao Ryder
[2020-08-26] MEDS: CEFEPIME 2,000 MG in SYRINGE 0 ML IV SCH ×2 (16:54→23:59)
--- NOTE | 2020-08-26 19:04 | Hospitalist Progress Note ---
Date of Service August 26, 2020 Assessment & Plan (1) Fever: possible due to pyelonephritis /Pneumonia has been afebrile since cont on Cefepime , Doxy follow cultures hypotension : due to dehydration given IV fluid bolus , monitor no symptoms of dizzy spell or lightheadedness Colon ca on Chemo : Metastatic colon cancer stage IV: Follows with hematology/oncology, had last chemo on Friday. Pancytopenia : due to chemo Pneumonia : Possible pneumonia and mucus plugging on CAT scan on cefepime and Doxy Full code Deep venous thrombosis prophylaxis: Sequential compression devices/thrombocytopenia Disposition : PT/OT eval prior to discharge Admission and Anticipated Discharge Date Admission Date: August 25, 2020 Subjective has been afebrile since admission was hypotensive , received IV fluid bolus /denies of any symptoms cont to monitor in tele Review of Systems Review of Systems: All systems reviewed & are unremarkable except as noted in Subjective Physical Exam Constitutional: WD/WN, vitals as above Eyes: PERRL, conjunctivae normal, anicteric sclerae ENMT: external ear and nose normal, oropharynx normal Neck: trachea midline, no thyromegaly Respiratory: normal respiratory effort, lungs clear to auscultation Cardiovascular: RRR, no murmur, no edema Gastrointestinal (Abdomen): normal bowel sounds, soft, nontender, no hepatosplenomegaly Skin: no rashes, warm and dry Neurologic: patellar DTR's 2+ bilat, sensation intact Genitourinary: no testicular masses, no penis abnormality Lymphatic: no cervical or axillary lymphadenopathy Results & Data Results & Data ([facility]) Vital Signs (Past 12 Hours) Vital Signs Temp Pulse Pulse Resp BP Pulse Ox 08/26/20 15:16 37.1 C 73 16 89/57 L 99 08/26/20 15:06 74 08/26/20 12:05 37.0 C 77 18 85/62 L 98 08/26/20 08:26 66 08/26/20 08:10 114/68 08/26/20 07:32 36.8 C 68 18 88/55 L 98
[2020-08-26] MEDS: MIRTAZAPINE TAB 15 MG TAB PO SCH (20:24)
[2020-08-26] MEDS ORDERED: MAGNESIUM SULFATE / D5W 1 GM/100 ML BAG IV ONE (20:58)
[2020-08-26] MEDS ORDERED: MIDODRINE HCL 2.5 MG TAB PO ONE (20:59)
[2020-08-27] MEDS: PROCHLORPERAZINE MALEATE 10 MG TAB PO PRN (08:00)
[2020-08-27] MEDS: FERROUS SULFATE 325 MG TAB PO SCH ×2 (08:00→21:09)
[2020-08-27] MEDS: MIDODRINE HCL 2.5 MG TAB PO SCH ×3 (08:00→16:29)
[2020-08-27] MEDS: HYOSCYAMINE SULFATE 0.125 MG TAB PO PRN (08:00)
[2020-08-27] MEDS: CYANOCOBALAMIN 500 MCG TABLET (VITAMIN B-12) PO SCH (08:00)
[2020-08-27] MEDS: INSULIN ASPART 100 UNITS/ML 3 ML PEN SC SCH ×4 (08:01→21:10)
[2020-08-27] MEDS: DOXYCYCLINE HYCLATE 100 MG in DEXTROSE 5% 100 ML IV SCH ×2 (08:06→21:16)
[2020-08-27] MEDS: CEFEPIME 2,000 MG in SYRINGE 0 ML IV SCH ×3 (08:06→23:37)
[2020-08-27] MEDS: MoRPHine SULFATE CR 15 MG TABCR PO SCH ×2 (08:14→21:16)
[2020-08-27] MEDS ORDERED: SODIUM CHLORIDE 0.9% 1000ML 500 ML IV ONE (11:34)
--- NOTE | 2020-08-27 11:38 | Communication Note ---
Date of Service: August 27, 2020 pt remains hypotensive SBP in low 90's to high 80's no tachycardia does not have any symptoms received IV fluid bolus -multiple times yesterday pt remains in negative balance -200 ml no evidence of sepsis ordered for 250 ml NSS bolus check orthostatic vitals started on Midodrine yesterday cont to monitor in tele Haydee Leyva MD
--- NOTE | 2020-08-27 17:25 | Hospitalist Progress Note ---
Date of Service August 27, 2020 Assessment & Plan (1) Fever: possible due to pyelonephritis /Pneumonia has been afebrile since cont on Cefepime , Doxy will de escalete abx in Am follow cultures hypotension : no orthostatic BP change doubt dehydration as pt received multiple IV fluid bolus , iV fluid resuscitation during this admission started on Midodrine no symptoms of dizzy spell or lightheadedness Colon ca on Chemo : Metastatic colon cancer stage IV: Follows with hematology/oncology, had last chemo on Friday. Pancytopenia : due to chemo Pneumonia : Possible pneumonia and mucus plugging on CAT scan on cefepime and Doxy Full code Deep venous thrombosis prophylaxis: Sequential compression devices/thrombocytopenia Disposition : monitor in tele PT/OT eval prior to discharge Admission and Anticipated Discharge Date Admission Date: August 25, 2020 Subjective has been afebrile since admission denies of any symptoms of dizzy spell or lightheadedness no SOB or serna BP remains in low 90's no cough or fever or chills Physical Exam Constitutional: WD/WN, vitals as above Eyes: PERRL, conjunctivae normal, anicteric sclerae ENMT: external ear and nose normal, oropharynx normal Neck: trachea midline, no thyromegaly Respiratory: normal respiratory effort, lungs clear to auscultation Cardiovascular: RRR, no murmur, no edema Gastrointestinal (Abdomen): normal bowel sounds, soft, nontender, no hepatosplenomegaly Skin: no rashes, warm and dry Neurologic: patellar DTR's 2+ bilat, sensation intact Genitourinary: no testicular masses, no penis abnormality Lymphatic: no cervical or axillary lymphadenopathy Results & Data Results & Data ([facility]) Vital Signs (Past 12 Hours) Vital Signs Temp Pulse Pulse Resp BP BP Pulse Ox 08/27/20 15:44 37.0 C 67 19 87/57 L 98 08/27/20 14:57 70 08/27/20 11:19 36.7 C 69 18 89/62 L 99 08/27/20 08:14 93/64 L 08/27/20 08:00 96 H 08/27/20 07:01 36.4 C 71 18 84/58 L 98
[2020-08-27] MEDS: MIRTAZAPINE TAB 15 MG TAB PO SCH (21:10)
[2020-08-28 06:57] LABS: Creatinine Clr Calc Pharmacy 135.5 ml/min; Est GFR (African American) 133.5; Est GFR (Non-African American) 115.2
[2020-08-28] MEDS: CEFEPIME 2,000 MG in SYRINGE 0 ML IV SCH ×3 (09:35→23:30)
[2020-08-28] MEDS: MoRPHine SULFATE CR 15 MG TABCR PO SCH ×2 (09:35→22:32)
[2020-08-28] MEDS: DOXYCYCLINE HYCLATE 100 MG in DEXTROSE 5% 100 ML IV SCH ×2 (09:36→20:41)
[2020-08-28] MEDS: MIDODRINE HCL 2.5 MG TAB PO SCH ×2 (09:36→12:40)
[2020-08-28] MEDS: CYANOCOBALAMIN 500 MCG TABLET (VITAMIN B-12) PO SCH (09:36)
[2020-08-28] MEDS: FERROUS SULFATE 325 MG TAB PO SCH ×2 (09:37→20:15)
[2020-08-28] MEDS: INSULIN ASPART 100 UNITS/ML 3 ML PEN SC SCH ×4 (09:37→20:46)
[2020-08-28] MEDS: MIDODRINE HCL 10 MG TAB PO SCH (16:52)
[2020-08-28] MEDS: ACETAMINOPHEN 325 MG TAB PO PRN (16:56)
--- NOTE | 2020-08-28 17:34 | Hospitalist Progress Note ---
Date of Service August 28, 2020 Assessment & Plan (1) Fever: possible due to pyelonephritis /Pneumonia has been afebrile since on Cefepime , Doxy will de escalate abx to Doxycycline , urine culture -no growth , complete 7 days tx hypotension : resolved no orthostatic BP change doubt dehydration as pt received multiple IV fluid bolus , iV fluid resuscitation during this admission started on Midodrine 5 mg tid , dose increased to 10mg TID , sbp has been in low 100's since no symptoms of dizzy spell or lightheadedness Colon ca on Chemo : Metastatic colon cancer stage IV: Follows with hematology/oncology, had last chemo the week before admission follow up with heme onc in clinic Pancytopenia : due to chemo Pneumonia : Possible pneumonia and mucus plugging on CAT scan no cough or sob , no fever on cefepime and Doxy abx changed to Doxycycline -7 days tx Full code Deep venous thrombosis prophylaxis: Sequential compression devices/thrombocy topenia Disposition : PT/OT eval requested plan to dc home in next 1-2 days , if remains clinically stable Admission and Anticipated Discharge Date Admission Date: August 25, 2020 Subjective has been afebrile since admission BP improved to low 100's no symptoms of dizzy spell , lightheadedness no cough or SOB pt is very pleasant and comfortable hoping to go home tomorrow Review of Systems Review of Systems: All systems reviewed & are unremarkable except as noted in Subjective Physical Exam Constitutional: WD/WN, vitals as above Eyes: PERRL, conjunctivae normal, anicteric sclerae ENMT: external ear and nose normal, oropharynx normal Neck: trachea midline, no thyromegaly Respiratory: normal respiratory effort, lungs clear to auscultation Cardiovascular: RRR, no murmur, no edema Gastrointestinal (Abdomen): normal bowel sounds, soft, nontender, no hepatosplenomegaly Skin: no rashes, warm and dry Neurologic: patellar DTR's 2+ bilat, sensation intact Genitourinary: no testicular masses, no penis abnormality Lymphatic: no cervical or axillary lymphadenopathy Results & Data Results & Data ([facility]) Vital Signs (Past 12 Hours) Vital Signs Temp Pulse Pulse Resp BP BP Pulse Ox 08/28/20 17:32 36.7 C 62 18 103/70 92 08/28/20 16:00 72 08/28/20 15:17 36.9 C 74 16 97/59 L 98 08/28/20 11:19 36.5 C 73 19 94/60 L 100 08/28/20 08:00 66 08/28/20 07:14 36.4 C L 70 17 89/64 L 99
[2020-08-28] MEDS: MIRTAZAPINE TAB 15 MG TAB PO SCH (20:14)
[2020-08-29] MEDS: HEPARIN 100 UNIT/ML 5ML FLUSH FLUSH PRN (06:25)
[2020-08-29 07:14] LABS: Creatinine Clr Calc Pharmacy 186.8 ml/min; Est GFR (African American) > 150.0; Est GFR (Non-African American) 131.4
[2020-08-29] MEDS: CEFEPIME 2,000 MG in SYRINGE 0 ML IV SCH (07:45)
[2020-08-29] MEDS: CYANOCOBALAMIN 500 MCG TABLET (VITAMIN B-12) PO SCH (07:45)
[2020-08-29] MEDS: MIDODRINE HCL 10 MG TAB PO SCH ×3 (07:45→17:22)
[2020-08-29] MEDS: FERROUS SULFATE 325 MG TAB PO SCH ×2 (07:46→21:01)
[2020-08-29] MEDS: DOXYCYCLINE HYCLATE 100 MG in DEXTROSE 5% 100 ML IV SCH (07:46)
[2020-08-29] MEDS: MoRPHine SULFATE CR 15 MG TABCR PO SCH ×2 (07:46→21:01)
[2020-08-29] MEDS: INSULIN ASPART 100 UNITS/ML 3 ML PEN SC SCH ×5 (08:27→23:50)
[2020-08-29] MEDS: ONDANSETRON INJ 2 MG/ML 2 ML VIAL IV PRN (11:14)
[2020-08-29] MEDS: oxyCODONE/ACETAMINOPHEN 5mg/325mg TAB PO PRN ×2 (11:14→17:33)
[2020-08-29] MEDS: HYOSCYAMINE SULFATE 0.125 MG TAB PO PRN (11:15)
--- NOTE | 2020-08-29 17:08 | Hospitalist Progress Note ---
Date of Service August 29, 2020 Assessment & Plan (1) Fever: Abdominal pain /Nausea : new symptoms started since AM had BM yesterday , none today pain in localized to lower abdomen given hx of Colon Ca -high risk for Illeus /Obstruction check a CT abdomen /pelvis will keep him on clear liquid diet ( no vomiting ) , can consider NPO if CT of abdomen abnormal. possible due to pyelonephritis /Pneumonia has been afebrile since Abx changed to Doxycycline for pneumonia complete 7 days tx urine culture -no growth , no tx needed hypotension : resolved no orthostatic BP change doubt dehydration as pt received multiple IV fluid bolus , iV fluid resuscitation during this admission started on Midodrine 5 mg tid , dose increased to 10mg TID , sbp has been in low 100's since no symptoms of dizzy spell or lightheadedness Colon ca on Chemo : Metastatic colon cancer stage IV: Follows with hematology/oncology, had last chemo the week before admission follow up with heme onc in clinic Ct abdomen /pelvis ordered for abdominal pain Pancytopenia : due to chemo Pneumonia : Possible pneumonia and mucus plugging on CAT scan no cough or sob , no fever on cefepime and Doxy abx changed to Doxycycline -7 days tx Full code Deep venous thrombosis prophylaxis: Sequential compression devices/thrombocytopenia Disposition : PT/OT eval requested pt will need continued abdominal stay due to abdominal pain , generalized weakness lives at home with Daughter and son in law , able to provide care round the clock will benefit with home health and home PT on discharge Plan of care updated to Theron Braden -, all questions answered Admission and Anticipated Discharge Date Admission Date: August 25, 2020 Subjective pt reports of not feeling well today complains of abdominal pain , nausea , no vomiting appetite poor had BM yesterday afebrile, BP stable in low 100's no cough ro SOB Review of Systems Review of Systems: All systems reviewed & are unremarkable except as noted in Subjective Gastrointestinal: + abdominal pain and + nausea; no vomiting Physical Exam Constitutional: WD/WN, vitals as above Eyes: PERRL, conjunctivae normal, anicteric sclerae ENMT: external ear and nose normal, oropharynx normal Neck: trachea midline, no thyromegaly Respiratory: normal respiratory effort, lungs clear to auscultation Cardiovascular: RRR, no murmur, no edema Gastrointestinal (Abdomen): Inspection/Auscultation: + hyperactive bowel sounds Percussion/Palpation: + abdomen tender (on lower abdomen ) and abdomen soft Skin: no rashes, warm and dry Neurologic: patellar DTR's 2+ bilat, sensation intact Genitourinary: no testicular masses, no penis abnormality Lymphatic: no cervical or axillary lymphadenopathy Results & Data Results & Data ([facility]) Vital Signs (Past 12 Hours) Vital Signs Temp Pulse Pulse Resp BP BP Pulse Ox 08/29/20 15:27 70 08/29/20 15:20 36.7 C 69 18 103/67 98 08/29/20 11:04 36.9 C 88 18 101/69 97 08/29/20 07:54 36.7 C 83 18 102/68 98 08/29/20 05:21 36.6 C 73 16 101/67 98
[2020-08-29] MEDS ORDERED: POLYETHYLENE (MIRALAX) 17 GM PACK PO PRN (17:43)
[2020-08-29] MEDS: PROCHLORPERAZINE MALEATE 10 MG TAB PO PRN (17:51)
[2020-08-29] MEDS ORDERED: OPTIRAY 320 100ml IV ONE (18:11)
--- NOTE | 2020-08-29 18:32 | CT Scan Report ---
CT abd pelvis IV con only CLINICAL HISTORY: Abdominal pain. History of colon carcinoma. Possible bowel obstruction. COMPARISON STUDY: 08/25/2020 TECHNIQUE: The patient was scanned in a dynamic helical fashion during intravenous administration of 93 cc of Optiray 320 A dose lowering technique was utilized adhering to the principles of ALARA. CT DOSE: 802.53 mGycm FINDINGS: Lower chest: There is left lower lobe mucus plugging. There are 2 tangential left lower lobe pulmonar y nodules measuring 2.5 cm in aggregate. There is equivocal hypodensity within left lower lobe pulmon arcadio artery branches. A pulmonary embolism cannot be excluded. There is a 7 mm right middle lobe pulmo nary nodule. Liver: The contrast-enhanced liver is normal in size, contour, and attenuation. There is no intrahepa tic biliary ductal dilatation. The hepatic veins and portal veins are patent. Gallbladder: Cholelithiasis. Mild gallbladder wall thickening/edema. Spleen: Enlarged measuring 16 cm Pancreas: Unremarkable. Adrenal glands: Unremarkable. Kidneys: The left kidney appears atrophic. There is a lower pole left renal calculus measuring 7 mm. There is a 3 mm mid pole left renal calculus. There is a 12 mm left renal cyst. There is no significa nt hydronephrosis Bowel: There is a colonic stent near the rectosigmoid junction. The colon proximal to the stent demon strates progressive dilatation with bowel wall thickening. The colon proximal to the stent is stool-f illed. An element of obstruction is suspected as the colon distal to the stent is nondilated. Peritoneum: There is no significant ascites. There is no free air. There is mild infiltration of the peritoneal fat Vasculature: The abdominal aorta is normal in course and caliber. Adenopathy: There are mildly enlarged para-aortic and iliac chain nodes. Pelvic viscera: The bladder, and pelvic viscera are unremarkable. There are prostatic calcifications. There is mild bladder wall thickening Skeletal structures: No destructive osseous lesions are seen. IMPRESSION: 1. Progressive dilatation of a stool-filled colon proximal to the colonic stent located at the descen ding sigmoid junction. There is interval development of colonic wall thickening proximal to the level of the stent consistent with a colitis. An element of bowel obstruction is suspected at the level of the stent. 2. Cholelithiasis 3. Left-sided nephrolithiasis 4. Metastatic disease as evidenced by pulmonary nodules and abdominal lymphadenopathy 5. Persistent bladder wall thickening 6. Splenomegaly 7. Left lower lobe mucus plugging 8. Equivocal filling defects within the left lower lobe pulmonary artery branches. Pulmonary embolism not excluded ACT 112: Negative or not required by law. Electronically signed by: Charanjit Velázquez M.D. 08/29/2020 6:31 PM
[2020-08-29] MEDS ORDERED: PIPERACILL/TAZOBAC CONSULT ACTIVE PRN (18:44)
--- NOTE | 2020-08-29 18:46 | Communication Note ---
Date of Service: August 29, 2020 CT abdomen /Pelvis : . Progressive dilatation of a stool-filled colon proximal to the colonic stent located at the descending sigmoid junction. There is interval development of colonic wall thickening proximal to the level of the stent consistent with a colitis. An element of bowel obstruction is suspected at the level of the stent. ordered for strict NPO , IV fluids and bowel rest /IV morphine PRN for pain IV Zosyn for possible colitis repeat Labs : CBC , CMP , Lactic, pro nate level in Am General Surgery consulted CT finding and plan of care updated to Patient and her daughter over phone Haydee Leyva MD
[2020-08-29] MEDS: LACTATED RINGER'S 1,000 ML IV SCH (19:06)
--- NOTE | 2020-08-29 19:22 | Surgery Consultation ---
Date of Consultation August 29, 2020 Assessment & Plan (1) Colon cancer: Patient with nausea and some abdominal pain longstanding history of descending colon cancer with stent in place CT scan showing evidence of possible obstructed area near the stent Patient had recent chemotherapy and has neutropenia and thrombocytopenia Evidence of metastatic disease to the lungs and intra-abdominal lymphadenopathy He does not require an emergent operation which would most likely be a diverting colostomy We will asked the GI team to see the patient for their thoughts-anything more conservative than aggressive surgical intervention Would be better for this patient and his very weakened state He does not appear to have significant small bowel dilation or obstruction and therefore I do not think an NG tube will help much unless he vomits We will follow with you History of Present Illness Attending Physician: Haydee Leyva MD History of Present Illness 60-year-old male we were asked to see for abdominal pain and nausea with evidence on a CAT scan of distal colonic obstruction from a known colon cancer for which she has a stent in place. The cancer was diagnosed in September 2018 He has not had any other surgery except a port placed and is currently undergoing chemotherapy with the last treatment approximately 6 days prior last Friday. His white blood cell count is decreasing from 3-1.77 He has thrombocytopenia with a platelet count of 63,000 He had a repeat CAT scan from 2 to 3 days prior which shows more stool in the proximal colon and some thickening of the colon Showing some evidence of obstruction. He does not complain of significant abdominal pain at the present time Does have evidence of pulmonary nodules and lymphadenopathy in the abdomen Allergies Allergy/AdvReac Type Severity Reaction Status Date / Time No Known Allergies Allergy Verified 08/25/20 19:38 Home Medications Medication Instructions Recorded Confirmed Type pioglitazone [Actos] 30 mg PO QAM 04/18/18 08/25/20 History ferrous sulfate 325 mg PO BID 10/02/18 08/25/20 History Jardiance 10 mg PO QAM 08/31/19 08/25/20 History oxycodone-acetaminophen 1 tab PO Q6 PRN 12/27/19 08/25/20 History prochlorperazine maleate 10 mg PO Q6H PRN 12/27/19 08/25/20 History [Compazine] cyanocobalamin (vitamin B-12) 500 mcg PO QAM 02/11/20 08/25/20 History [Vitamin B-12] diphenoxylate-atropine 1 tab PO QID PRN 02/11/20 08/25/20 History hyoscyamine sulfate [Levsin] 0.125 mg PO Q6H PRN 02/11/20 08/25/20 History morphine 15 mg PO Q12H 04/01/20 08/25/20 History ondansetron HCl 8 mg PO Q8H PRN 05/06/20 08/25/20 History mirtazapine 15 mg PO HS 06/23/20 08/25/20 History spironolactone 50 mg PO DAILY 06/23/20 08/25/20 History doxycycline hyclate 100 mg PO BID 3 Days #6 cap 08/29/20 Rx midodrine 10 mg PO TID@0800,1200,1700 30 08/29/20 Rx Days #90 tab Patient History Medical History (Updated 08/26/20 @ 19:57 by Haydee Leyva MD) Acute lower GI bleeding Anxiety C. difficile colitis hx ~2017. 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 Depression Diverticulitis of colon with perforation NO SURGERY DM type 2 (diabetes mellitus, type 2) Dyslipidemia Immunocompromised Kidney stones Obesity Osteoarthritis Pancytopenia Follows with heme Splenomegaly r/t chemotherapy Surgical History History of colonoscopy History of cystoscopy STONE REMOVAL WITH STENT PLACED History of esophagogastroduodenoscopy (EGD) History of tooth extraction History of vascular access device RIGHT UPPER CHEST PLACED 09/2018 Hx of hernia repair Hx of tonsillectomy Family History Mother , Age 62 Breast cancer Father , Age 62 Stroke Sister Family history of diabetes mellitus Brother Family history of diabetes mellitus Brother Family history of diabetes mellitus Other No family history of adverse response to anesthesia Social History Smoking Status: Former smoker Tobacco Type: Cigarettes Second Hand Exposure: Yes (sometimes); Hx Alcohol Use: No Hx Substance Use: No Preferred Language: Wolof Communication Ability: Effective Visual Impairment: No Limitations Senior Center Director Required: No Beliefs That Will Affect Care: None marital status: Current Living Situation: Family Current Living Situation Comment: Lives with daughter Other Information That Helps Us Care for You: No Feels Safe at Home: Yes Safety Concerns: Feels Safe At This Time Assistive Devices: None Review of Systems Review of Systems: All systems reviewed & are unremarkable except as noted in HPI & below Physical Exam Physical Exam: Patient is awake and alert in his hospital bed is obviously cachectic and very weak appearing His abdomen is relatively soft with no significant peritoneal irritation Constitutional: + ill appearing; no acute distress Eyes: + anicteric sclerae Respiratory: no respiratory distress Cardiovascular: Rate/Rhythm: regular rate Musculoskeletal: Head/Neck/Chest: head atraumatic Skin: no rashes, warm and dry Neurologic: awake Psychiatric: Orientation: alert Results & Data ([facility]) Vital Signs (Past 12 Hours) Vital Signs Temp Pulse Pulse Resp BP BP Pulse Ox 08/29/20 15:27 70 08/29/20 15:20 36.7 C 69 18 103/67 98 08/29/20 11:04 36.9 C 88 18 101/69 97 08/29/20 07:54 36.7 C 83 18 102/68 98 I did review his CAT scan PG Care Time/CCT Total # of Minutes Spent Total Time Spent with Patient: Total time spent is greater than 50% in coordination of care (as documented) at patient's floor/unit and/or counseling patient: Coding Level of Care Code 18358 Inpt Consult Level 4 Diagnoses Colon cancer C18.9
[2020-08-29] MEDS ORDERED: PIPERACILLIN/TAZOBACTAM 3.375 GM in DEXTROSE 5% 100 ML IV ONE (19:30)
[2020-08-29] MEDS: MoRPHine SULFATE 4 MG/ML 1 ML CARP\\VIAL IV PRN (20:07)
[2020-08-29] MEDS: DOCUSATE SODIUM 100 MG CAP PO SCH (21:01)
[2020-08-29] MEDS: MIRTAZAPINE TAB 15 MG TAB PO SCH (21:01)
[2020-08-29] MEDS ORDERED: Nursing to Pharmacy Communication SCH (21:15)
[2020-08-29] MEDS: DOXYCYCLINE HYCLATE 100 MG CAP PO SCH (23:50)
[2020-08-30] MEDS: MoRPHine SULFATE 4 MG/ML 1 ML CARP\\VIAL IV PRN ×3 (00:56→15:15)
[2020-08-30] MEDS: PIPERACILLIN/TAZOBACTAM 3.375 GM in DEXTROSE 5% 100 ML IV SCH ×3 (01:28→18:14)
[2020-08-30] MEDS: DOXYCYCLINE HYCLATE 100 MG CAP PO SCH ×2 (01:52→11:35)
[2020-08-30 05:16] LABS: Hematocrit (blood only) 26.1 % (42-52); Hemoglobin 8.6 g/dL (14.0-18.0); Mean Corpuscular Hemoglobin 30.4 pg (25-34); Mean Corpuscular Volume 92.2 fL (80-100); RDW Coefficient of Variation 16.3 % (11.5-14.5); RDW Standard Deviation 55.4 fL (36.4-46.3); Red Blood Count 2.83 M/uL (4.7-6.1); White Blood Count 2.81 K/uL (4.8-10.8)
[2020-08-30 05:17] LABS: Platelet Count 76 K/uL (130-400)
[2020-08-30 05:34] LABS: Albumin Level 2.3 gm/dl (3.4-5.0); BUN Creatinine Ratio 26.8 (10-20); Calcium 8.4 mg/dl (8.5-10.1); Creatinine Clr Calc Pharmacy 150.3 ml/min; Est GFR (African American) 139.3; Est GFR (Non-African American) 120.2; Potassium 3.8 mmol/L (3.5-5.1)
[2020-08-30 05:36] LABS: Albumin Globulin Ratio 0.7 (0.9-2); Bilirubin,Total 0.4 mg/dl (0.2-1); Globulin 3.2 gm/dl (2.5-4.0); Total Protein 5.5 gm/dl (6.4-8.2)
[2020-08-30] MEDS: INSULIN ASPART 100 UNITS/ML 3 ML PEN SC SCH ×3 (06:01→19:46)
[2020-08-30] MEDS: LACTATED RINGER'S 1,000 ML IV SCH ×2 (06:01→16:59)
--- NOTE | 2020-08-30 06:23 | Surgery Progress Note ---
Date of Service August 30, 2020 Assessment & Plan (1) Colon obstruction: Patient with development of colon obstruction -has a longstanding stent in place in the sigmoid colon Currently undergoing chemotherapy with last treatment last week Neutropenic, thrombocytopenic, anemia and cachexia From a surgical standpoint he would require a diverting colostomy which may be life-threatening in his current condition GI team is to evaluate the patient We will consider discussion with his oncologist Admission and Anticipated Discharge Date Admission Date: August 25, 2020 Subjective Patient is in his room he is awake He is in no distress and is not complaining of abdominal pain, no nausea at present Physical Exam Physical Exam: Patient has minimal distention of the abdomen with no significant pain to palpation Constitutional: + ill appearing and + cachectic; no acute distress Eyes: + anicteric sclerae Respiratory: no respiratory distress Cardiovascular: Rate/Rhythm: regular rate Musculoskeletal: Head/Neck/Chest: head atraumatic Skin: no rashes, warm and dry Neurologic: awake Psychiatric: Orientation: alert Results & Data ([facility]) Vital Signs (Past 12 Hours) Vital Signs Temp Pulse Pulse Resp BP Pulse Ox 08/30/20 03:00 36.3 C L 69 20 94/61 L 98 08/29/20 23:51 62 08/29/20 23:00 36.5 C 68 20 97/62 L 98 08/29/20 20:00 36.4 C L 59 L 18 93/62 L 97 PG Care Time/CCT Total # of Minutes Spent Total Time Spent with Patient: Total time spent is greater than 50% in coord ination of care (as documented) at patient's floor/unit and/or counseling patient: Coding Level of Care Code 45632 Inpt Consult Level 3 Diagnoses Colon obstruction K56.609
[2020-08-30] MEDS: CYANOCOBALAMIN 500 MCG TABLET (VITAMIN B-12) PO SCH (07:13)
[2020-08-30] MEDS: DOCUSATE SODIUM 100 MG CAP PO SCH ×2 (07:13→21:45)
[2020-08-30] MEDS: MIDODRINE HCL 10 MG TAB PO SCH ×3 (07:13→18:08)
[2020-08-30] MEDS: FERROUS SULFATE 325 MG TAB PO SCH ×2 (07:13→21:45)
[2020-08-30] MEDS: MoRPHine SULFATE CR 15 MG TABCR PO SCH (08:09)
[2020-08-30] MEDS ORDERED: SOD PHOSPHATE/SOD BIPHOSPHATE ENEMA 132 ML BTL PR STA (08:17)
--- NOTE | 2020-08-30 08:57 | XRay Report ---
KUB HISTORY: Bowel obstruction. Follow-up. COMPARISON: Abdomen and pelvis CT 08/29/2020. FINDINGS: A left-sided colonic stent appears unchanged in position. There is contrast within the blad linda from the recent CT examination. Left-sided nephrolithiasis is again noted. There is a 2 cm gallst one seen within the right upper quadrant. Large amount well-formed stool within the colon proximal to the stent. This is similar to the prior study and likely represents a partial large bowel obstructio n. The colon remains distended up to 9.5 cm. No dilated loops of small bowel identified at this time. No renal calculi. No ureteral calculi. No pneumoperitoneum or pneumatosis. IMPRESSION: The left-sided colonic stent appears unchanged in position. The large bowel proximal to the stent is distended and filled with stool. Therefore, this favors a partial large bowel obstruction with the tr ansition point at the colonic stent. This remains unchanged. ACT 112: Negative or not required by law. Electronically signed by: Samuel Shook M.D. 08/30/2020 8:55 AM
--- NOTE | 2020-08-30 10:38 | Gastrointestinal Consultation ---
Date of Consultation August 30, 2020 Assessment & Plan (1) Colon cancer: (2) Colon obstruction: Pt is a 60 y/o male currently admitted for sepsis (pneumonia, ? pyelonephritis), seen for bowel obstruction. Hx of metastatic colon ca on chemo and s/p colonic stent placement 05/2020. Ct abd/pelvis yesterday showed signs of dilated colon proximal to stent and level obstruction at stent area. - Keep NPO - Will plan for colonoscopy eval w another colonic stent placement to relief obstruction by Dr. Adame. Fleets enema x 1 dose ordered for prep - Surgery following Supervising Physician Co-Signing Physician Notes I saw and evaluated the patient. We were consulted for evidence of new colonic obstruction likely related to tumor ingrowth or perhaps obstruction of the stent with stool. After discussion with the patient we have decided to proceed with a colonoscopy today with potential restent placement or perhaps debridement of the existing stent. The patient is quite ill given his metastatic colonic cancer and numerous other infectious problems. Physical examination Ill-appearing, pale appearing Mild abdominal discomfort noted to palpation Impression: Patient with a history of colonic cancer status post colonic stent placement for palliation in May. The patient appears to have tumor ingrowth based on his T scan and we are planning to do a repeat colonoscopy with new stent placement today. Other possibilities include that the stent could be occluded with stool. I have discussed the risks of the procedure to include bleeding, infection, perforation and need for urgent surgery. History of Present Illness Reason for Consultation: Colon ca s/p colonic stent placement; bowel obstruction Requesting Physician: Dr River Kelly Attending Physician: Dr Lexa Adame History of Present Illness Pt is a 60 y/o male w is admitted for sepsis 2/2 pneumonia and possible pyelonephritis seen for bowel obstruction. He had been c/o abd pain, distension, no flatus. Hx of metastatic colon ca s/p colonic stent placement 05/2020 and currently on chemo (last dose 08/23/2020). CT abd/pelvis w contrast yesterday showed progressive dilatation of a stool-filled colon proximal to the colonic stent located at the descending sigmoid junction. There is interval development of colonic wall thickening proximal to the level of the stent consistent with a colitis. An element of bowel obstruction is suspected at the level of the stent. Surgery team following, considering diverting colostomy Allergies Allergy/AdvReac Type Severity Reaction Status Date / Time No Known Allergies Allergy Verified 08/25/20 19:38 Home Medications Medication Instructions Recorded Confirmed Type pioglitazone [Actos] 30 mg PO QAM 04/18/18 08/25/20 History ferrous sulfate 325 mg PO BID 10/02/18 08/25/20 History Jardiance 10 mg PO QAM 08/31/19 08/25/20 History oxycodone-acetaminophen 1 tab PO Q6 PRN 12/27/19 08/25/20 History prochlorperazine maleate 10 mg PO Q6H PRN 12/27/19 08/25/20 History [Compazine] cyanocobalamin (vitamin B-12) 500 mcg PO QAM 02/11/20 08/25/20 History [Vitamin B-12] diphenoxylate-atropine 1 tab PO QID PRN 02/11/20 08/25/20 History hyoscyamine sulfate [Levsin] 0.125 mg PO Q6H PRN 02/11/20 08/25/20 History morphine 15 mg PO Q12H 04/01/20 08/25/20 History ondansetron HCl 8 mg PO Q8H PRN 05/06/20 08/25/20 History mirtazapine 15 mg PO HS 06/23/20 08/25/20 History doxycycline hyclate 100 mg PO BID 3 Days #6 cap 08/29/20 Rx midodrine 10 mg PO TID@0800,1200,1700 30 08/29/20 Rx Days #90 tab Patient History Medical History Acute lower GI bleeding Anxiety C. difficile colitis hx ~2018. 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 Depression Diverticulitis of colon with perforation NO SURGERY DM type 2 (diabetes mellitus, type 2) Dyslipidemia Immunocompromised Kidney stones Obesity Osteoarthritis Pancytopenia Follows with heme Splenomegaly r/t chemotherapy Surgical History History of colonoscopy History of cystoscopy STONE REMOVAL WITH STENT PLACED History of esophagogastroduodenoscopy (EGD) History of tooth extraction History of vascular access device RIGHT UPPER CHEST PLACED 09/2018 Hx of hernia repair Hx of tonsillectomy Family History Mother , Age 62 Breast cancer Father , Age 62 Stroke Sister Family history of diabetes mellitus Brother Family history of diabetes mellitus Brother Family history of diabetes mellitus Other No family history of adverse response to anesthesia Social History Smoking Status: Former smoker Tobacco Type: Cigarettes Second Hand Exposure: Yes (sometimes); Hx Alcohol Use: No Hx Substance Use: No Preferred Language: Pry[place]inig Communication Ability: Effective Visual Impairment: No Limitations Civil Design Technician Required: No Beliefs That Will Affect Care: None marital status: Current Living Situation: Family Current Living Situation Comment: Lives with daughter Other Information That Helps Us Care for You: No Feels Safe at Home: Yes Safety Concerns: Feels Safe At This Time Assistive Devices: None Review of Systems Review of Systems: All systems reviewed & are unremarkable except as noted in HPI & below Physical Exam Constitutional: + thin, well groomed, cooperative and comfortable Eyes: PERRL, conjunctivae normal, anicteric sclerae ENMT: external ear and nose normal, oropharynx normal Respiratory: normal respiratory effort, lungs clear to auscultation Cardiovascular: RRR, no murmur, no edema Gastrointestinal (Abdomen): Inspection/Auscultation: normal bowel sounds (mostly on RUQ, LLQ areas ) Percussion/Palpation: abdomen soft; abdomen nontender Skin: no rashes, warm and dry no jaundice Psychiatric: A+Ox3, euthymic affect Lymphatic: no lymphedema Results & Data ([facility]) Vital Signs (Past 12 Hours) Vital Signs Temp Pulse Pulse Resp BP Pulse Ox 08/30/20 07:24 37.0 C 90 18 98/69 L 98 08/30/20 07:00 71 08/30/20 03:00 36.3 C L 69 20 94/61 L 98 08/29/20 23:51 62 08/29/20 23:00 36.5 C 68 20 97/62 L 98
[2020-08-30] MEDS ORDERED: PROCHLORPERAZINE 5 MG in SYRINGE 4 ML IV PRN (11:14)
[2020-08-30] MEDS: MoRPHine SULFATE 4 MG/ML 1 ML CARP\\VIAL IV SCH ×2 (11:48→19:19)
[2020-08-30] MEDS: DOXYCYCLINE HYCLATE 100 MG in DEXTROSE 5% 100 ML IV SCH ×2 (12:18→21:48)
--- NOTE | 2020-08-30 13:04 | Anesthesiology Consultation ---
Date of Service August 30, 2020 Assessment & Plan ASA ASA4 Proposed Anesthesia Anesthesia Type: MAC Risk / Benefits Reviewed With: PT / POA / Parent / Guardian, Accepts Plan and Informed Consent Obtained History Surgery Operation Date: 08/30/20 12:35 Proposed Procedures p Colonoscopy with Stent - Lexa Adame DO Height/Weight Height: 5 ft 6 in Weight: 69.5 kg Allergies Allergy/AdvReac Type Severity Reaction Status Date / Time No Known Allergies Allergy Verified 08/25/20 19:38 Medications Home Medications Medication Instructions Recorded Confirmed Last Taken pioglitazone [Actos] 30 mg PO QAM 04/18/18 08/25/20 05/05/20 ferrous sulfate 325 mg PO BID 10/02/18 08/25/20 05/05/20 Jardiance 10 mg PO QAM 08/31/19 08/25/20 05/05/20 oxycodone-acetaminophen 1 tab PO Q6 PRN 12/27/19 08/25/20 03/31/20 prochlorperazine maleate 10 mg PO Q6H PRN 12/27/19 08/25/20 05/05/20 [Compazine] cyanocobalamin (vitamin B-12) 500 mcg PO QAM 02/11/20 08/25/20 05/05/20 [Vitamin B-12] diphenoxylate-atropine 1 tab PO QID PRN 02/11/20 08/25/20 04/01/20 hyoscyamine sulfate [Levsin] 0.125 mg PO Q6H PRN 02/11/20 08/25/20 05/05/20 morphine 15 mg PO Q12H 04/01/20 08/25/20 05/05/20 ondansetron HCl 8 mg PO Q8H PRN 05/06/20 08/25/20 Unknown mirtazapine 15 mg PO HS 06/23/20 08/25/20 Unknown doxycycline hyclate 100 mg PO BID 3 Days #6 cap 08/29/20 Unknown midodrine 10 mg PO TID@0800,1200,1700 30 08/29/20 Unknown Days #90 tab Active Medications Generic Name Dose Route Start Last Admin Trade Name Freq PRN Reason Stop Dose Admin Acetaminophen 650 mg 08/25/20 23:40 08/28/20 16:56 Acetaminophen 325 Mg Tab PO 09/24/20 23:39 650 mg Q4H PRN Administration Pain or Fever Cyanocobalamin 500 mcg 08/26/20 09:00 08/30/20 07:13 Cyanocobalamin 500 Mcg Tablet (Vitamin B-12) PO 09/25/20 08:59 Not Given QAM LUIS Docusate Sodium 100 mg 08/29/20 21:00 08/30/20 07:13 Docusate Sodium 100 Mg Cap PO 09/28/20 20:59 Not Given BID LUIS Doxycycline Hyclate 100 mg 08/29/20 23:00 08/30/20 11:35 Doxycycline Hyclate 100 Mg Cap PO Not Given BID@1100,2300 COUNT INCLUDES THE [facility] Protocol Ferrous Sulfate 325 mg 08/26/20 09:00 08/30/20 07:13 Ferrous Sulfate 325 Mg Tab PO 09/25/20 08:59 Not Given BID LUIS Heparin Sodium (Porcine) 5 ml 08/26/20 01:02 08/29/20 06:25 Heparin 100 Unit/Ml 5ml Flush FLUSH 09/25/20 01:01 3 ml PRN PRN Administration Flush Hyoscyamine 0.125 mg 08/25/20 23:40 08/29/20 11:15 Hyoscyamine Sulfate 0.125 Mg Tab PO 09/24/20 23:39 0.125 mg Q6H PRN Administration Cramping Lactated Ringer's 1,000 mls @ 100 mls/hr 08/29/20 18:45 08/30/20 06:01 Lr IV 09/28/20 18:44 100 mls/hr .Q10H LUIS Administration Piperacillin Sod/Tazobactam 115 mls @ 28.75 mls/hr 08/30/20 01:00 08/30/20 12:33 Sod 3.375 gm/ Dextrose IV 09/09/20 00:59 Infused Q8H LUIS Infusion Protocol Doxycycline Hyclate 100 mg/ 110 mls @ 50 mls/hr 08/30/20 11:30 08/30/20 12:18 Dextrose IV 09/06/20 11:29 50 mls/hr Q12 LUIS Administration Insulin Aspart 0 units 08/30/20 00:00 08/30/20 11:49 Insulin Aspart 100 Units/Ml 3 Ml Pen SC 09/29/20 00:00 1 units Q6 LUIS Administration Midodrine 10 mg 08/28/20 17:00 08/30/20 11:50 Midodrine Hcl 10 Mg Tab PO 09/27/20 16:59 Not Given TID@0800,1200,1700 LUIS Mirtazapine 15 mg 08/26/20 21:00 08/29/20 21:01 Mirtazapine Tab 15 Mg Tab PO 09/25/20 20:59 15 mg HS LUIS Administration Morphine Sulfate 15 mg 08/25/20 23:40 08/30/20 08:09 Morphine Sulfate Cr 15 Mg Tabcr PO 09/08/20 23:39 Not Given Q12 LUIS Morphine Sulfate 4 mg 08/29/20 18:41 08/30/20 08:04 Morphine Sulfate 4 Mg/Ml 1 Ml Carp\Vial IV 09/12/20 18:44 4 mg Q3H PRN Administration pain Morphine Sulfate 3 mg 08/30/20 11:30 08/30/20 11:48 Morphine Sulfate 4 Mg/Ml 1 Ml Carp\Vial IV 09/13/20 11:29 3 mg Q8H LUIS Administration Ondansetron HCl 4 mg 08/25/20 23:40 08/29/20 11:14 Ondansetron Inj 2 Mg/Ml 2 Ml Vial IV 09/24/20 23:39 4 mg Q6H PRN Administration Nausea Oxycodone/Acetaminophen 1 tab 08/25/20 23:40 08/29/20 17:33 Oxycodone/Acetaminophen 5mg/325mg Tab PO 09/08/20 23:39 1 tab Q6 PRN Administration Pain-Mild/Moderate Prochlorperazine 10 mg 08/25/20 23:40 08/29/20 17:51 Prochlorperazine Maleate 10 Mg Tab PO 09/24/20 23:39 10 mg Q6H PRN Administration Nausea NPO Date Last Intake of Fluids: 08/29/20 Time Last Intake of Fluids: 20:00 Date Last Intake of Solids: 08/29/20 Time Last Intake of Solids: 12:00 Past Medical History Medical History Acute lower GI bleeding Anxiety C. difficile colitis hx ~2018. 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 Depression Diverticulitis of colon with perforation NO SURGERY DM type 2 (diabetes mellitus, type 2) Dyslipidemia Immunocompromised Kidney stones Obesity Osteoarthritis Pancytopenia Follows with heme Splenomegaly r/t chemotherapy Exercise / Class Metabolic Activity II 4-5 Yardwork/Stairs/Walk up hill Past Family History Family History Mother , Age 62 Breast cancer Father , Age 62 Stroke Sister Family history of diabetes mellitus Brother Family history of diabetes mellitus Brother Family history of diabetes mellitus Other No family history of adverse response to anesthesia Past Surgical History Surgical History History of colonoscopy History of cystoscopy STONE REMOVAL WITH STENT PLACED History of esophagogastroduodenoscopy (EGD) History of tooth extraction History of vascular access device RIGHT UPPER CHEST PLACED 09/2018 Hx of hernia repair Hx of tonsillectomy Past Anesthesia History No Hx of Anesthesia Complications and No Family Hx of Anesthesia Complications History of PONV No Hx of PONV and No Hx of Motion Sickness Social History Smoking Status: Former smoker tobacco type: cigarettes Hx Alcohol Use: No Hx Substance Use: No substance use type: opiates Review of Systems denies fever/cough/ colds/ chest pain/ SOB/ ERIKA denies ERIKA Physical Exam Vital Signs Last Vital Signs Temp 36.8 C 08/30/20 12:32 Pulse 80 08/30/20 12:32 Resp 18 08/30/20 12:32 BP 96/70 L 08/30/20 12:32 Pulse Ox 98 08/30/20 12:32 ENMT Mouth: no TMJ abnormality and no dentition abnormality Thyromental Distance: > or= 3.5 Finger Breadths Mallampati Class: II Neck + facial hair; neck extension not limited Respiratory normal respiratory effort; no respiratory distress Auscultation: lungs clear to auscultation bilaterally Cardiovascular Rate/Rhythm: regular rate and regular rhythm Neurologic moves all extremities Psychiatric Orientation: alert and oriented x 3 Testing Laboratory Results 08/30/20 05:07 08/30/20 05:07 PT 10.6 Seconds (9.0-12.0) 08/25/20 19:12 INR 1.0 (0.9-1.1) 08/25/20 19:12 APTT 24.4 Seconds (21.0-31.0) 08/25/20 19:12 Hemoglobin A1c 5.8 % (4.5-5.6) H 08/26/20 05:23 Urine Color Yellow 08/25/20 20:40 Urine Appearance Clear (Clear) 08/25/20 20:40 Urine pH 5.0 (4.5-7.5) 08/25/20 20:40 Ur Specific [place] > 1.045 (1.000-1.030) H 08/25/20 20:40 Urine Protein Negative (Negative) 08/25/20 20:40 Urine Glucose (UA) 3+ (Negative) H 08/25/20 20:40 Urine Ketones Negative (Negative) 08/25/20 20:40 Urine Nitrite Negative (Negative) 08/25/20 20:40 Ur Leukocyte Esterase Negative (Negative) 08/25/20 20:40 08/25/20 19:45 Aerobic Blood Culture - Preliminary Blood No growth in Aerobic bottle after 48 hours. Anaerobic Blood Culture - Preliminary No growth in Anaerobic bottle after 48 hours. 08/25/20 19:12 Aerobic Blood Culture - Preliminary Blood No growth in Aerobic bottle after 48 hours. Anaerobic Blood Culture - Preliminary No growth in Anaerobic bottle after 48 hours. 08/30/20 08/30/20 11:42 06:01 POC Glucose 176 H 116 H
[2020-08-30] MEDS ORDERED: ATROPINE SULFATE 0.1 MG/ML 10ML SYR IV PRN (13:05)
[2020-08-30] MEDS ORDERED: ePHEDrine sulfate 50 MG/ML AMP IV PRN (13:05)
[2020-08-30] MEDS ORDERED: fentaNYL citrate 100 MCG/2 ML VIAL IV PRN (13:05)
[2020-08-30] MEDS ORDERED: LIDOCAINE HCL 2% 2 ML VIAL/AMP(20MG/ML) INFIL ONE (14:19)
[2020-08-30] MEDS ORDERED: PROPOFOL IV EMULSION 10 MG/ML 20 ML VIAL IV ONE (14:19)
[2020-08-30] MEDS ORDERED: PHENYLEPHRINE HCL 10 MG/ML VIAL ONE (14:19)
--- NOTE | 2020-08-30 14:25 | GI REPORT ---
Patient Name: Diogo Acosta Procedure Date: 08/30/2020 1:48 PM Date of : 1960 Admit Type: Inpatient Age: 60 Gender: Male Attending MD: Lexa Adame DO Procedure: Colonoscopy Providers: Lexa Adame DO Referring MD: Michael Salinas Indications: Therapeutic procedure for known colon mass Medicines: Monitored Anesthesia Care Complications: No immediate complications. Estimated blood loss: Minimal. Estimated Blood Loss: Estimated blood loss was minimal. Procedure: Pre-Anesthesia Assessment: - Prior to the procedure, a History and Physical was performed, and patient medications, allergies and sensitivities were reviewed. The patient's tolerance of previous anesthesia was reviewed. - The risks and benefits of the procedure and the sedation options and risks were discussed with the patient. All questions were answered and informed consent was obtained. - Patient identification and proposed procedure were verified prior to the procedure by the physician, the nurse and the distance education director. The procedure was verified in the procedure room. - Pre-procedure physical examination revealed no contraindications to sedation. - ASA Grade Assessment: III - A patient with severe systemic disease. - After reviewing the risks and benefits, the patient was deemed in satisfactory condition to undergo the procedure. - The anesthesia plan was to use monitored anesthesia care (MAC). - Immediately prior to administration of medications, the patient was re-assessed for adequacy to receive sedatives. - The heart rate, respiratory rate, oxygen saturations, blood pressure, adequacy of pulmonary ventilation, and response to care were monitored throughout the procedure. - The physical status of the patient was re-assessed after the procedure. After I obtained informed consent, the scope was passed under direct vision. Throughout the procedure, the patient's blood pressure, pulse, and oxygen saturations were monitored continuously. The Endoscope was introduced through the anus and advanced to the descending colon to examine a mass. This was the intended extent. The colonoscopy was performed without difficulty. The patient tolerated the procedure well. The quality of the bowel preparation was fair. Findings: The perianal and digital rectal examinations were normal. Pertinent negatives include normal sphincter tone. A fungating completely obstructing large mass was found in the descending colon. The mass was circumferential (involving 100% of the lumen circumference). Oozing was present. The lumen was identified after irrigation of the tumor and surrounding area. A 0.035 inch Jagwire was passed through the stricture using a biliary extraction balloon. The stricture was then evaluated with contrast injection through the balloon which showed her ingrowth of the entire existing colonic stent. The stricture was stented with under fluoroscopic guidance using a [employer] Evolution Colonic Stent 8 cm x 23 mm (REF NIKOLAI 25-30-8-C, Lot [id number]). Estimated blood loss was minimal. Impression: - Preparation of the colon was fair. - Malignant completely obstructing tumor in the descending colon. New 8 cm prosthesis placed through an existing colonic stent due to tumor ingrowth causing obstruction. - No specimens collected. Recommendation: - Return patient to [facility] for ongoing care. - Miralax 1 capful (17 grams) in 8 ounces of water PO daily indefinitely. - Colace 200 mg/day Lexa Adame D.O. Lexa Adame, DO 08/30/2020 2:25:33 PM This report has been signed electronically. Note Initiated On: 08/30/2020 1:48 PM Number of Addenda: 0 I attest to the content of the Intraoperative Record and orders documented therein, exceptions below {[id number]}
--- NOTE | 2020-08-30 14:26 | Post Operative Brief Note ---
Immediate Post Op Note v1 Date of Surgery August 30, 2020 Pre & Post Diagnosis Operation Date: 08/30/20 12:35 Pre-Op Diagnosis: Metastatic Colon Cancer Post-Op Diagnosis: Metastatic Colon Cancer I identified the patient and participated in the time-out.: Yes Procedure Operation Date: 08/30/20 12:35 Actual Procedures p Colonoscopy with Stent in Operating Room(Not Applicable) - Lexa Adame DO Surgeon Lexa Adame DO [employer] none Estimated Blood Loss 0 Findings Consistent with Post-Op Diagnosis
--- NOTE | 2020-08-30 14:27 | Anesthesiology Progress Note ---
Date of Service August 30, 2020 Anesthesia Post Procedure Vital Signs Vital Signs: Temp Pulse Pulse Pulse Resp BP BP 08/30/20 14:20 82 16 98/70 L 08/30/20 14:14 36.5 C 81 16 108/78 08/30/20 12:32 36.8 C 80 18 96/70 L 08/30/20 11:21 36.7 C 97 H 18 103/72 08/30/20 07:24 37.0 C 90 18 98/69 L 08/30/20 07:00 71 08/30/20 03:00 36.3 C L 69 20 94/61 L 08/29/20 23:51 62 08/29/20 23:00 36.5 C 68 20 97/62 L 08/29/20 20:00 36.4 C L 59 L 18 93/62 L 08/29/20 15:27 70 08/29/20 15:20 36.7 C 69 18 103/67 Pulse Ox 08/30/20 14:20 99 08/30/20 14:14 100 08/30/20 12:32 98 08/30/20 11:21 98 08/30/20 07:24 98 08/30/20 07:00 08/30/20 03:00 98 08/29/20 23:51 08/29/20 23:00 98 08/29/20 20:00 97 08/29/20 15:27 08/29/20 15:20 98 Pain Intensity Lower Abdomen: Pain Intensity: 8 Transfer of Care Handoff Completed per policy Notes Mental Status: alert / awake / arousable Patient Amnestic to Procedure: Yes Nausea / Vomiting: adequately controlled Pain: adequately controlled Airway Patency, RR, SpO2: stable & adequate BP & HR: stable & adequate Hydration State: stable & adequate Anesthetic Complications: no major complications apparent
--- NOTE | 2020-08-30 14:32 | Communication Note ---
Date of Service: August 30, 2020 Patient underwent urgent colonoscopy today for colonic obstruction. The patient was found to have an existing colonic stent which was completely obstructed by new tumor ingrowth. This was again stented with a new colonic stent that was 8 cm in length. Recommendations MiraLAX 1 time daily Colace 200 mg daily Would recommend against use of Lomotil and other antidiarrheal agents as this could lead to colonic obstruction stool
--- NOTE | 2020-08-30 14:51 | Fluoroscopy Report ---
[place] [facility]UB CLINICAL HISTORY: COLONOSCOPY WITH STENT COMPARISON STUDY: Abdomen and pelvis CT 08/29/2020. FLUOROSCOPY TIME: 32 seconds. FINDINGS: 5 fluoroscopic spot images of the abdomen were submitted. There is an endoscope visualized with contrast injected through the indwelling colonic stent. There is severe stenosis. This followed by placement of a second colonic stent which appears in good position. IMPRESSION: Fluoroscopy provided for colonic stent placement. ACT 112: Negative or not required by law. Electronically signed by: Samuel Shook M.D. 08/30/2020 2:50 PM
[2020-08-30] MEDS: ONDANSETRON INJ 2 MG/ML 2 ML VIAL IV PRN (14:57)
--- NOTE | 2020-08-30 18:13 | Hospitalist Progress Note ---
Date of Service August 30, 2020 Assessment & Plan (1) Fever: (1) Fever: Abdominal pain /Nausea secondary to Colonic Partial Bowel Obstruction pain in localized to lower abdomen s/p Colonoscopy: (+) tumor growth over old stent new stent placed -- strict NPO for now continue IV fluids monitor closely continue Zosyn Possible due to pyelonephritis /Pneumonia -- Urine culture negative on Doxycycline for possible PNA Hypotension resolved no orthostatic BP change doubt dehydration as pt received multiple IV fluid bolus , iV fluid resuscitation during this admission started on Midodrine 5 mg tid , dose increased to 10mg TID , sbp has been in low 100's since no symptoms of dizzy spell or lightheadedness Colon ca on Chemo : Metastatic colon cancer stage IV: Follows with hematology/oncology, had last chemo the week before admission follow up with heme onc in clinic Pancytopenia : due to chemo neutropenic precautions Pneumonia: Per Dr. Leyva's notes: Possible pneumonia and mucus plugging on CAT scan no cough or sob , no fever on cefepime and Doxy abx changed to Doxycycline -7 days tx severe protein-calorie malnutrition Ager Tender on board Full code Deep venous thrombosis prophylaxis: Sequential compression devices/thrombocytopenia Disposition : PT/OT eval requested pt will need continued abdominal stay due to abdominal pain , generalized weakness lives at home with Daughter and son in law , able to provide care round the clock will benefit with home health and home PT on discharge Plan of care updated to Theron Braden -, all questions answered Admission and Anticipated Discharge Date Admission Date: August 25, 2020 Subjective ff up for partial colonic bowel obstruction, etc seen resting in bed, comfortable somewhat weak reports lower abdominal pain, (+) loose BMs, non bloody no headache, dizziness, chest pain, dyspnea, palpitations, nausea/vomiting no cough no other symptoms Review of Systems Review of Systems: All systems reviewed & are unremarkable except as noted in Subjective Physical Exam Physical Exam: General- oriented x 3, not in distress, speaks in sentences with no effort or accessory muscle use Head- atraumatic Eyes- PERRL, EOMI, anicteric ENT- oropharynx clear Neck- supple, no JVD, no adenopathy, no thyromegaly; carotids +2/2, no bruits appreciated Lungs- clear to auscultation bilaterally, no rales/wheezes Heart- normal rate, regular rhythm; no murmur, no gallop, no rub appreciated Abdomen- normal bowel sounds, mild lower abdominal tenderness, soft, nontender, no masses or hepatosplenomegaly Extremities- no pretibial edema, no calf tenderness; peripheral pulses intact Neuro- alert, oriented x 3; CN 2-12 grossly intact; motor 5/5 bilaterally;sensation 100% on all extremities; no other gross focal neurologic deficits Skin- warm & dry Results & Data Results & Data ([facility]) Vital Signs (Past 12 Hours) Vital Signs Temp Pulse Pulse Pulse Resp BP Pulse Ox 08/30/20 15:40 36.6 C 85 20 112/74 96 08/30/20 14:40 36.4 C L 83 16 114/70 99 08/30/20 14:30 36.4 C L 82 16 106/71 99 08/30/20 14:20 82 16 98/70 L 99 08/30/20 14:14 36.5 C 81 16 108/78 100 08/30/20 12:32 36.8 C 80 18 96/70 L 98 08/30/20 11:21 36.7 C 97 H 18 103/72 98 08/30/20 07:24 37.0 C 90 18 98/69 L 98 08/30/20 07:00 71 Laboratory Results Laboratory Results - last 24 hr 08/29/20 08/29/20 08/30/20 20:35 23:29 05:07 WBC RBC Hgb Hct MCV MCH MCHC RDW Std Deviation RDW Coeff of Ivette Plt Count MPV Sodium Potassium Chloride Carbon Dioxide Anion Gap BUN Creatinine Est Cr Clr Drug Dosing Est GFR ( Amer) Est GFR (Non-Af Amer) BUN/Creatinine Ratio Glucose POC Glucose 172 H 115 H Lactate 0.4 Calcium Total Bilirubin AST ALT Alkaline Phosphatase Total Protein Albumin Globulin Albumin/Globulin Ratio Procalcitonin 08/30/20 08/30/20 08/30/20 05:07 05:07 05:07 WBC 2.81 L RBC 2.83 L Hgb 8.6 L Hct 26.1 L MCV 92.2 MCH 30.4 MCHC 33.0 RDW Std Deviation 55.4 H RDW Coeff of Ivette 16.3 H Plt Count 76 L MPV 9.0 Sodium 136 Potassium 3.8 Chloride 106 Carbon Dioxide 24 Anion Gap 6.0 BUN 12 Creatinine 0.46 L Est Cr Clr Drug Dosing 150.3 Est GFR ( Amer) 139.3 Est GFR (Non-Af Amer) 120.2 BUN/Creatinine Ratio 26.8 H Glucose 114 H POC Glucose Lactate Calcium 8.4 L Total Bilirubin 0.4 AST 13 L ALT 17 Alkaline Phosphatase 100 Total Protein 5.5 L Albumin 2.3 L Globulin 3.2 Albumin/Globulin Ratio 0.7 L Procalcitonin 0.18 08/30/20 08/30/20 08/30/20 06:01 11:42 14:21 WBC RBC Hgb Hct MCV MCH MCHC RDW Std Deviation RDW Coeff of Ivette Plt Count MPV Sodium Potassium Chloride Carbon Dioxide Anion Gap BUN Creatinine Est Cr Clr Drug Dosing Est GFR ( Amer) Est GFR (Non-Af Amer) BUN/Creatinine Ratio Glucose POC Glucose 116 H 176 H 165 H Lactate Calcium Total Bilirubin AST ALT Alkaline Phosphatase Total Protein Albumin Globulin Albumin/Globulin Ratio Procalcitonin
[2020-08-30] MEDS: MIRTAZAPINE TAB 15 MG TAB PO SCH (21:45)
[2020-08-31] MEDS: DOXYCYCLINE HYCLATE 100 MG CAP PO SCH ×2 (00:26→11:50)
[2020-08-31] MEDS: INSULIN ASPART 100 UNITS/ML 3 ML PEN SC SCH ×4 (00:27→18:31)
[2020-08-31] MEDS: PIPERACILLIN/TAZOBACTAM 3.375 GM in DEXTROSE 5% 100 ML IV SCH ×4 (01:44→23:55)
[2020-08-31] MEDS: MoRPHine SULFATE 4 MG/ML 1 ML CARP\\VIAL IV SCH ×3 (04:30→21:33)
[2020-08-31] MEDS: LACTATED RINGER'S 1,000 ML IV SCH ×2 (05:18→11:52)
[2020-08-31 06:33] LABS: Creatinine Clr Calc Pharmacy 147.1 ml/min; Est GFR (African American) 138.1; Est GFR (Non-African American) 119.1
--- NOTE | 2020-08-31 07:28 | Surgery Progress Note ---
Date of Service August 31, 2020 Assessment & Plan (1) Colon obstruction: Status post additional colonic stent placed Appears to be passing stool Discussed patient with Dr. Meraz/oncology-patient doing very poorly on chemotherapy Supportive care Admission and Anticipated Discharge Date Admission Date: August 25, 2020 Subjective Patient status post colonic stent placed Resting comfortably this morning Having bowel movements Physical Exam Physical Exam: Abdomen is much less distended Constitutional: + ill appearing and + cachectic; no acute distress Respiratory: no respiratory distress Cardiovascular: Rate/Rhythm: regular rate Musculoskeletal: Head/Neck/Chest: head atraumatic Results & Data ([facility]) Vital Signs (Past 12 Hours) Vital Signs Temp Pulse Pulse Resp BP Pulse Ox 08/31/20 04:30 91/58 L 08/31/20 03:02 71 08/31/20 02:55 36.4 C L 73 18 93/57 L 97 08/30/20 23:30 36.5 C 74 18 94/59 L 97 08/30/20 20:43 80 PG Care Time/CCT Total # of Minutes Spent Total Time Spent with Patient: Total time spent is greater than 50% in coordination of care (as documented) at patient's floor/unit and/or counseling patient: Coding Level of Care Code 55086 Inpt Consult Level 3 Diagnoses Colon obstruction K56.609
[2020-08-31] MEDS: MIDODRINE HCL 10 MG TAB PO SCH ×3 (08:39→17:30)
[2020-08-31] MEDS: DOCUSATE SODIUM 100 MG CAP PO SCH ×2 (08:39→21:45)
[2020-08-31] MEDS: FERROUS SULFATE 325 MG TAB PO SCH ×2 (08:40→21:42)
[2020-08-31] MEDS: CYANOCOBALAMIN 500 MCG TABLET (VITAMIN B-12) PO SCH (08:40)
[2020-08-31 08:50] LABS: Hematocrit (blood only) 24.1 % (42-52); Hemoglobin 7.9 g/dL (14.0-18.0); Mean Corpuscular Hemoglobin 30.3 pg (25-34); Mean Corpuscular Hgb Conc 32.8 g/dL (32-36); Mean Corpuscular Volume 92.3 fL (80-100); RDW Coefficient of Variation 16.2 % (11.5-14.5); RDW Standard Deviation 54.5 fL (36.4-46.3); Red Blood Count 2.61 M/uL (4.7-6.1); White Blood Count 1.87 K/uL (4.8-10.8)
[2020-08-31] MEDS: DOXYCYCLINE HYCLATE 100 MG in DEXTROSE 5% 100 ML IV SCH ×2 (08:51→21:33)
[2020-08-31 08:57] LABS: BUN Creatinine Ratio 23.9 (10-20); Calcium 8.7 mg/dl (8.5-10.1); Creatinine Clr Calc Pharmacy 141.1 ml/min; Est GFR (African American) 135.7; Est GFR (Non-African American) 117.1; Potassium 3.3 mmol/L (3.5-5.1)
[2020-08-31 09:18] LABS: Mean Platelet Volume 9.2 fL (7.4-10.4); Platelet Count 78 K/uL (130-400)
[2020-08-31 09:22] LABS: Eosinophils # (auto) 0.06 K/uL (0-0.5); Eosinophils % (auto) 3.2 %; Immature Granulocytes # (auto) 0.01 K/uL (0.00-0.02); Immature Granulocytes % (auto) 0.5 %; Lymphocytes # (auto) 0.65 K/uL (1.2-3.4); Lymphocytes % (auto) 34.8 %; Monocytes # (auto) 0.28 K/uL (0.11-0.59); Neutrophils # (auto) 0.87 K/uL (1.4-6.5); Neutrophils % (auto) 46.5 %
--- NOTE | 2020-08-31 10:04 | XRay Report ---
KUB HISTORY: re-eval colonic distension,stool burden COMPARISON: KUB 08/30/2020. FINDINGS: There are 2 overlapping colonic stents within the left side of the colon. There is persiste nt stool-filled distended colon measuring up to 9.4 cm diameter. This remains unchanged. No dilated l oops of small bowel. Cholelithiasis. No renal calculi. No ureteral calculi. No pneumoperitoneum or p neumatosis. IMPRESSION: 1. There are now 2 overlapping colonic stents with the left side of the colon. 2. No change in the distended and stool-filled large bowel proximal to the stent. ACT 112: Negative or not required by law. Electronically signed by: Samuel Shook M.D. 08/31/2020 10:03 AM
--- NOTE | 2020-08-31 10:36 | Gastroenterology Progress Note ---
Date of Service August 31, 2020 Assessment & Plan (1) Colon cancer: (2) Colon obstruction: Pt is a 60 y/o male currently admitted for sepsis (pneumonia, ? pyelonephritis), seen for bowel obstruction. Hx of metastatic colon ca on chemo and s/p colonic stent placement 05/2020. Ct abd/pelvis showed signs of dilated colon proximal to stent and level obstruction at stent area. S/P colonoscopy w repeat colonic stent placement on 08/30. He is passing liquid stools and little flatus. Abd soft, non tender. - Repeat KUB today - NPO except sips and chips - Miralax 17g daily - When diet is advanced, please make sure he's on low fiber diet to prevent stent from getting clogged - GI to sign off; pls recall prn Admission and Anticipated Discharge Date Admission Date: August 25, 2020 Supervising Physician Co-Signing Physician Notes I saw and evaluated the patient this morning. He is starting to pass flatus and stool which is a great sign. Recommendations MiraLAX something grams daily indefinitely Colace 200 mg daily Avoid use of antimotility agents Please call with any questions or concerns, GI to sign off Subjective Pt had loose BMs and passing little flatus last night. He denies abd pain, n/v Review of Systems Review of Systems: All systems reviewed & are unremarkable except as noted in HPI & below Physical Exam Constitutional: + thin, well groomed, cooperative and comfortable Eyes: PERRL, conjunctivae normal, anicteric sclerae ENMT: external ear and nose normal, oropharynx normal Respiratory: normal respiratory effort, lungs clear to auscultation Cardiovascular: RRR, no murmur, no edema Gastrointestinal (Abdomen): Inspection/Auscultation: + hypoactive bowel sounds Percussion/Palpation: abdomen soft; abdomen nontender Skin: no rashes, warm and dry no jaundice Psychiatric: Orientation: oriented x 3 flat affect Lymphatic: no lymphedema Results & Data ([facility]) Vital Signs (Past 12 Hours) Vital Signs Temp Pulse Pulse Resp BP Pulse Ox 08/31/20 07:30 36.3 C L 72 18 95/59 L 97 08/31/20 04:30 91/58 L 08/31/20 03:02 71 08/31/20 02:55 36.4 C L 73 18 93/57 L 97 08/30/20 23:30 36.5 C 74 18 94/59 L 97
[2020-08-31] MEDS: POLYETHYLENE (MIRALAX) 17 GM PACK PO SCH (12:01)
--- NOTE | 2020-08-31 18:13 | Hospitalist Progress Note ---
Date of Service August 31, 2020 Assessment & Plan (1) Fever: (1) Fever: Abdominal pain /Nausea secondary to Colonic Partial Bowel Obstruction pain in localized to lower abdomen s/p Colonoscopy: (+) tumor growth over old stent new stent placed -- repeat KUB: 1. There are now 2 overlapping colonic stents with the left side of the colon. 2. No change in the distended and stool-filled large bowel proximal to the stent. -- strict NPO for now continue IV fluids monitor closely continue Zosyn Possible due to pyelonephritis /Pneumonia -- Urine culture negative on Doxycycline for possible PNA Hypotension resolved no orthostatic BP change doubt dehydration as pt received multiple IV fluid bolus , iV fluid resuscitation during this admission started on Midodrine 5 mg tid , dose increased to 10mg TID , sbp has been in low 100's since no symptoms of dizzy spell or lightheadedness Colon ca on Chemo : Metastatic colon cancer stage IV: Follows with hematology/oncology, had last chemo the week before admission follow up with heme onc in clinic Pancytopenia : due to chemo neutropenic precautions Pneumonia: Per Dr. Leyva's notes: Possible pneumonia and mucus plugging on CAT scan no cough or sob , no fever on cefepime and Doxy abx changed to Doxycycline -7 days tx severe protein-calorie malnutrition Concrete Block Layer on board Full code Deep venous thrombosis prophylaxis: Sequential compression devices/thrombocytopenia Disposition : PT/OT julieta requested lives at home with Daughter and son in law , able to provide care round the clock will benefit with home health and home PT on discharge Admission and Anticipated Discharge Date Admission Date: August 25, 2020 Subjective ff up for partial colon obstruction, etc seen resting in bed, comfortable states he feels improved today no abdominal pain, nausea (+) loose BMs no chest pain, dyspnea, palpitations, dizziness no other symptoms Review of Systems Review of Systems: All systems reviewed & are unremarkable except as noted in Subjective Physical Exam Physical Exam: General- oriented x 3, not in distress, speaks in sentences with no effort or accessory muscle use Eyes- anicteric Neck- no JVD Lungs- clear breath sounds bilaterally Heart- normal rate, regular rhythm; no murmurs Abdomen- normal bowel sounds, nondistended, soft, nontender Extremities- no pretibial edema, no calf tenderness Neuro- alert, oriented x 3; no gross focal neurologic deficits Skin- warm & dry Results & Data Results & Data ([facility]) Vital Signs (Past 12 Hours) Vital Signs Temp Pulse Pulse Resp BP Pulse Ox 08/31/20 16:00 36.3 C L 63 18 103/65 99 08/31/20 14:48 68 08/31/20 11:26 36.4 C L 69 18 93/56 L 98 08/31/20 07:30 36.3 C L 72 18 95/59 L 97 Laboratory Results Laboratory Results - last 24 hr 08/30/20 08/30/20 08/31/20 19:28 23:56 05:31 WBC 1.87 L RBC 2.61 L Hgb 7.9 L Hct 24.1 L MCV 92.3 MCH 30.3 MCHC 32.8 RDW Std Deviation 54.5 H RDW Coeff of Ivette 16.2 H Plt Count 78 L MPV 9.2 Immature Gran % (Auto) 0.5 Neut % (Auto) 46.5 Lymph % (Auto) 34.8 [place] % (Auto) 15.0 Eos % (Auto) 3.2 Baso % (Auto) 0.0 Neut # (Auto) 0.87 L* Lymph # (Auto) 0.65 L [place] # (Auto) 0.28 Eos # (Auto) 0.06 Baso # (Auto) 0.00 Immature Gran # (Auto) 0.01 Sodium Potassium Chloride Carbon Dioxide Anion Gap BUN Creatinine Est Cr Clr Drug Dosing Est GFR ( Amer) Est GFR (Non-Af Amer) BUN/Creatinine Ratio Glucose POC Glucose 134 H 122 H Calcium 08/31/20 08/31/20 08/31/20 05:31 05:32 05:49 WBC RBC Hgb Hct MCV MCH MCHC RDW Std Deviation RDW Coeff of Ivette Plt Count MPV Immature Gran % (Auto) Neut % (Auto) Lymph % (Auto) [place] % (Auto) Eos % (Auto) Baso % (Auto) Neut # (Auto) Lymph # (Auto) [place] # (Auto) Eos # (Auto) Baso # (Auto) Immature Gran # (Auto) Sodium 137 Potassium 3.3 L Chloride 105 Carbon Dioxide 27 Anion Gap 5.0 BUN 12 Creatinine 0.49 L 0.47 L Est Cr Clr Drug Dosing 141.1 147.1 Est GFR ( Amer) 135.7 138.1 Est GFR (Non-Af Amer) 117.1 119.1 BUN/Creatinine Ratio 23.9 H Glucose 112 H POC Glucose 126 H Calcium 8.7 08/31/20 12:06 WBC RBC Hgb Hct MCV MCH MCHC RDW Std Deviation RDW Coeff of Ivette Plt Count MPV Immature Gran % (Auto) Neut % (Auto) Lymph % (Auto) [place] % (Auto) Eos % (Auto) Baso % (Auto) Neut # (Auto) Lymph # (Auto) [place] # (Auto) Eos # (Auto) Baso # (Auto) Immature Gran # (Auto) Sodium Potassium Chloride Carbon Dioxide Anion Gap BUN Creatinine Est Cr Clr Drug Dosing Est GFR ( Amer) Est GFR (Non-Af Amer) BUN/Creatinine Ratio Glucose POC Glucose 134 H Calcium
[2020-08-31] MEDS: POTASSIUM CHLORIDE / WTR 10 MEQ/100 ML PLCT IV SCH ×2 (20:27→21:32)
[2020-08-31] MEDS: D5NSS + 20MEQ KCL 20 MEQ/1,000 ML BAG IV SCH (20:28)
[2020-08-31] MEDS: MoRPHine SULFATE 4 MG/ML 1 ML CARP\\VIAL IV PRN (21:11)
[2020-08-31] MEDS: MIRTAZAPINE TAB 15 MG TAB PO SCH (21:41)
[2020-09-01] MEDS: INSULIN ASPART 100 UNITS/ML 3 ML PEN SC SCH ×5 (00:29→20:13)
[2020-09-01] MEDS: MoRPHine SULFATE 4 MG/ML 1 ML CARP\\VIAL IV SCH ×2 (03:48→11:42)
[2020-09-01] MEDS: MoRPHine SULFATE 4 MG/ML 1 ML CARP\\VIAL IV PRN (05:48)
--- NOTE | 2020-09-01 06:27 | Surgery Progress Note ---
Date of Service September 01, 2020 Assessment & Plan (1) Colon obstruction: Continue with nonoperative management at this point If patient fails with stent placement I am not sure he would recover from a major abdominal operation I do not think he will improve much from his current state Continue supportive care for now Admission and Anticipated Discharge Date Admission Date: August 25, 2020 Subjective Patient resting in bed, appears to have slept all night He has received some pain medication and medication for nausea which would not be unexpected with his metastatic disease And recent chemotherapy Physical Exam Physical Exam: His abdomen is not significantly distended Constitutional: + ill appearing and + cachectic; no acute distress Respiratory: no respiratory distress Cardiovascular: Rate/Rhythm: regular rate Musculoskeletal: Head/Neck/Chest: head atraumatic Skin: no rashes, warm and dry Results & Data ([facility]) Vital Signs (Past 12 Hours) Vital Signs Temp Pulse Pulse Resp BP Pulse Ox 09/01/20 04:00 36.4 C L 65 18 94/59 L 98 08/31/20 23:49 58 L 08/31/20 23:24 36.4 C L 63 20 90/53 L 97 08/31/20 19:00 36.4 C L 57 L 18 97/63 L 98 KUB does show stool within the colon similar to before PG Care Time/CCT Total # of Minutes Spent Total Time Spent with Patient: Total time spent is greater than 50% in coordination of care (as documented) at patient's floor/unit and/or counseling patient: Coding Level of Care Code 38238 Inpt Consult Level 3 Diagnoses Colon obstruction K56.609
[2020-09-01 06:28] LABS: Hematocrit (blood only) 24.6 % (42-52); Hemoglobin 7.9 g/dL (14.0-18.0); Mean Corpuscular Hemoglobin 29.7 pg (25-34); Mean Corpuscular Hgb Conc 32.1 g/dL (32-36); Mean Corpuscular Volume 92.5 fL (80-100); RDW Coefficient of Variation 16.3 % (11.5-14.5); RDW Standard Deviation 54.8 fL (36.4-46.3); Red Blood Count 2.66 M/uL (4.7-6.1); White Blood Count 1.74 K/uL (4.8-10.8)
[2020-09-01 06:29] LABS: Mean Platelet Volume 8.8 fL (7.4-10.4); Platelet Count 78 K/uL (130-400)
[2020-09-01 07:12] LABS: BUN Creatinine Ratio 19.6 (10-20); Blood Urea Nitrogen 7 mg/dl (7-18); Calcium 8.3 mg/dl (8.5-10.1); Carbon Dioxide 27 mmol/L (21-32); Chloride 109 mmol/L (98-107); Creatinine Clr Calc Pharmacy 186.8 ml/min; Est GFR (African American) > 150.0; Est GFR (Non-African American) 131.4; Glucose 126 mg/dl (70-99); Potassium 3.5 mmol/L (3.5-5.1); Sodium 140 mmol/L (136-145)
[2020-09-01 07:23] LABS: Eosinophils # (auto) 0.04 K/uL (0-0.5); Eosinophils % (auto) 2.3 %; Lymphocytes # (auto) 0.77 K/uL (1.2-3.4); Lymphocytes % (auto) 44.3 %; Monocytes # (auto) 0.13 K/uL (0.11-0.59); Monocytes % (auto) 7.5 %; Neutrophils % (auto) 45.9 %; RBC Morphology Unremarkable
[2020-09-01] MEDS: D5NSS + 20MEQ KCL 20 MEQ/1,000 ML BAG IV SCH ×2 (09:20→20:03)
[2020-09-01] MEDS: CYANOCOBALAMIN 500 MCG TABLET (VITAMIN B-12) PO SCH (09:21)
[2020-09-01] MEDS: PIPERACILLIN/TAZOBACTAM 3.375 GM in DEXTROSE 5% 100 ML IV SCH ×2 (09:21→17:13)
[2020-09-01] MEDS: DOCUSATE SODIUM 100 MG CAP PO SCH ×2 (09:24→20:07)
[2020-09-01] MEDS: POLYETHYLENE (MIRALAX) 17 GM PACK PO SCH (09:24)
[2020-09-01] MEDS: DOXYCYCLINE HYCLATE 100 MG in DEXTROSE 5% 100 ML IV SCH (09:41)
[2020-09-01] MEDS: FERROUS SULFATE 325 MG TAB PO SCH ×2 (10:21→20:06)
[2020-09-01] MEDS: MIDODRINE HCL 10 MG TAB PO SCH ×3 (10:21→17:15)
--- NOTE | 2020-09-01 16:04 | XRay Report ---
KUB HISTORY: Acute generalized abdominal pain with colonic stent ff up partial small bowel obstruction COMPARISON: KUB 08/31/2020, CT abdomen pelvis 08/29/2020 FINDINGS: There are 2 superimposed colonic stents redemonstrated in the left hemicolon which appear u nchanged and intact. Gaseous distention of the large bowel measures up to 9.2 cm transversely. Mildly distended air-filled loops of small bowel within central abdomen are seen measuring up to approximat tessie 3 cm, new from comparison. No renal calculi. No ureteral calculi. No pneumoperitoneum or pneumat osis. No fracture. IMPRESSION: There are 2 colonic stents again noted within the left hemicolon which appear unchanged. Gaseous dist ention of upstream large bowel with interval development of mildly distended air-filled loops of smal l bowel. Follow-up recommended to exclude developing obstruction. ACT 112: Negative or not required by law. The above report was generated using voice recognition software. It may contain grammatical, syntax o r spelling errors. Electronically signed by: Nahum Higgins M.D. 09/01/2020 4:02 PM
--- NOTE | 2020-09-01 16:44 | Hospitalist Progress Note ---
Date of Service September 01, 2020 Assessment & Plan (1) Fever: (1) Fever: Abdominal pain /Nausea secondary to Colonic Partial Bowel Obstruction pain in localized to lower abdomen s/p Colonoscopy: (+) tumor growth over old stent new stent placed -- repeat KUB: 1. There are now 2 overlapping colonic stents with the left side of the colon. 2. No change in the distended and stool-filled large bowel proximal to the stent. -- clear liquids started continue IV fluids monitor closely continue Zosyn Possible due to pyelonephritis /Pneumonia -- Urine culture negative on Doxycycline for possible PNA Hypotension resolved no orthostatic BP change doubt dehydration as pt received multiple IV fluid bolus , iV fluid resuscitation during this admission started on Midodrine 5 mg tid , dose increased to 10mg TID , sbp has been in low 100's since no symptoms of dizzy spell or lightheadedness Colon ca on Chemo : Metastatic colon cancer stage IV: Follows with hematology/oncology, had last chemo the week before admission follow up with heme onc in clinic Pancytopenia : due to chemo neutropenic precautions Pneumonia: Per Dr. 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 Full code Deep venous thrombosis prophylaxis: Sequential compression devices/thrombocytopenia in light of thrombocytopenia encouraged to ambulated Disposition : PT/OT julieta requested lives at home with Daughter and son in law , able to provide care round the clock will benefit with home health and home PT on discharge Admission and Anticipated Discharge Date Admission Date: August 25, 2020 Subjective ff up for partial small bowel obstruction,etc seen resting in bed, comfortable less weak appearing states he feels about the same as yesterday minimal abdominal discomfort- gas pain per patient no nausea (+) 2 loose BMs today no chest pain, dyspnea, headache, dizziness no other symptoms Review of Systems Review of Systems: All systems reviewed & are unremarkable except as noted in Subjective Physical Exam Physical Exam: General- oriented x 3, not in distress, speaks in sentences with no effort or accessory muscle use Eyes- anicteric Neck- no JVD Lungs- clear breath sounds bilaterally, no rales, no wheezing Heart- normal rate, regular rhythm; no murmurs Abdomen- normal bowel sounds, nondistended, soft, nontender Extremities- no pretibial edema, no calf tenderness Neuro- alert, oriented x 3; no gross focal neurologic deficits Skin- warm & dry Results & Data Results & Data ([facility]) Vital Signs (Past 12 Hours) Vital Signs Temp Pulse Pulse Resp BP Pulse Ox 09/01/20 15:35 36.4 C L 52 L 18 93/56 L 100 09/01/20 15:26 54 L 09/01/20 11:07 36.7 C 62 18 99/62 L 99 09/01/20 09:32 57 L 09/01/20 07:51 36.8 C 63 18 93/53 L 98 Laboratory Results Laboratory Results - last 24 hr 08/31/20 08/31/20 09/01/20 18:30 23:57 05:44 WBC RBC Hgb Hct MCV MCH MCHC RDW Std Deviation RDW Coeff of Ivette Plt Count MPV Immature Gran % (Auto) Neut % (Auto) Lymph % (Auto) [place] % (Auto) Eos % (Auto) Baso % (Auto) Neut # (Auto) Lymph # (Auto) [place] # (Auto) Eos # (Auto) Baso # (Auto) Immature Gran # (Auto) RBC Morphology Sodium Potassium Chloride Carbon Dioxide Anion Gap BUN Creatinine Est Cr Clr Drug Dosing Est GFR ( Amer) Est GFR (Non-Af Amer) BUN/Creatinine Ratio Glucose POC Glucose 116 H 134 H 134 H Calcium 09/01/20 09/01/20 09/01/20 05:52 05:52 12:03 WBC 1.74 L RBC 2.66 L Hgb 7.9 L Hct 24.6 L MCV 92.5 MCH 29.7 MCHC 32.1 RDW Std Deviation 54.8 H RDW Coeff of Ivette 16.3 H Plt Count 78 L MPV 8.8 Immature Gran % (Auto) 0.0 Neut % (Auto) 45.9 Lymph % (Auto) 44.3 [place] % (Auto) 7.5 Eos % (Auto) 2.3 Baso % (Auto) 0.0 Neut # (Auto) 0.80 L* Lymph # (Auto) 0.77 L [place] # (Auto) 0.13 Eos # (Auto) 0.04 Baso # (Auto) 0.00 Immature Gran # (Auto) 0.00 RBC Morphology Unremarkable Sodium 140 Potassium 3.5 Chloride 109 H Carbon Dioxide 27 Anion Gap 4.0 BUN 7 D Creatinine 0.37 L Est Cr Clr Drug Dosing 186.8 Est GFR ( Amer) > 150.0 Est GFR (Non-Af Amer) 131.4 BUN/Creatinine Ratio 19.6 Glucose 126 H POC Glucose 163 H Calcium 8.3 L 09/01/20 16:28 WBC RBC Hgb Hct MCV MCH MCHC RDW Std Deviation RDW Coeff of Ivette Plt Count MPV Immature Gran % (Auto) Neut % (Auto) Lymph % (Auto) [place] % (Auto) Eos % (Auto) Baso % (Auto) Neut # (Auto) Lymph # (Auto) [place] # (Auto) Eos # (Auto) Baso # (Auto) Immature Gran # (Auto) RBC Morphology Sodium Potassium Chloride Carbon Dioxide Anion Gap BUN Creatinine Est Cr Clr Drug Dosing Est GFR ( Amer) Est GFR (Non-Af Amer) BUN/Creatinine Ratio Glucose POC Glucose 140 H Calcium
[2020-09-01] MEDS ORDERED: SODIUM CHLORIDE 0.9% 1000ML 250 ML IV ONE (18:39)
[2020-09-01] MEDS: MoRPHine SULFATE CR 15 MG TABCR PO SCH (20:05)
[2020-09-01] MEDS: MIRTAZAPINE TAB 15 MG TAB PO SCH (20:08)
[2020-09-02] MEDS: PIPERACILLIN/TAZOBACTAM 3.375 GM in DEXTROSE 5% 100 ML IV SCH ×3 (01:37→18:31)
[2020-09-02 06:29] LABS: Hematocrit (blood only) 25.2 % (42-52); Hemoglobin 8.2 g/dL (14.0-18.0); Mean Corpuscular Hemoglobin 30.4 pg (25-34); Mean Corpuscular Hgb Conc 32.5 g/dL (32-36); Mean Corpuscular Volume 93.3 fL (80-100); RDW Coefficient of Variation 16.5 % (11.5-14.5); RDW Standard Deviation 56.3 fL (36.4-46.3); White Blood Count 2.16 K/uL (4.8-10.8)
[2020-09-02 06:31] LABS: Mean Platelet Volume 8.7 fL (7.4-10.4); Platelet Count 85 K/uL (130-400)
[2020-09-02 06:58] LABS: Eosinophils # (auto) 0.08 K/uL (0-0.5); Eosinophils % (auto) 3.7 %; Giant Platelets 1+; Immature Granulocytes # (auto) 0.01 K/uL (0.00-0.02); Immature Granulocytes % (auto) 0.5 %; Lymphocytes # (auto) 1.02 K/uL (1.2-3.4); Lymphocytes % (auto) 47.2 %; Monocytes # (auto) 0.14 K/uL (0.11-0.59); Monocytes % (auto) 6.5 %; Neutrophils # (auto) 0.91 K/uL (1.4-6.5); Neutrophils % (auto) 42.1 %
[2020-09-02 07:00] LABS: BUN Creatinine Ratio 13.3 (10-20); Blood Urea Nitrogen 5 mg/dl (7-18); Calcium 8.4 mg/dl (8.5-10.1); Carbon Dioxide 26 mmol/L (21-32); Chloride 111 mmol/L (98-107); Creatinine Clr Calc Pharmacy 181.9 ml/min; Est GFR (African American) > 150.0; Glucose 117 mg/dl (70-99); Potassium 3.3 mmol/L (3.5-5.1); Sodium 140 mmol/L (136-145)
[2020-09-02] MEDS ORDERED: POTASSIUM CHLORIDE CRTAB 20 MEQ TABCR PO STA (08:55)
[2020-09-02] MEDS: D5NSS + 20MEQ KCL 20 MEQ/1,000 ML BAG IV SCH (09:00)
[2020-09-02] MEDS: CYANOCOBALAMIN 500 MCG TABLET (VITAMIN B-12) PO SCH (09:15)
[2020-09-02] MEDS: INSULIN ASPART 100 UNITS/ML 3 ML PEN SC SCH ×3 (09:15→17:27)
[2020-09-02] MEDS: MIDODRINE HCL 10 MG TAB PO SCH ×3 (09:16→17:52)
[2020-09-02] MEDS: FERROUS SULFATE 325 MG TAB PO SCH ×2 (09:16→20:26)
[2020-09-02] MEDS: POLYETHYLENE (MIRALAX) 17 GM PACK PO SCH (09:17)
[2020-09-02] MEDS: MoRPHine SULFATE CR 15 MG TABCR PO SCH ×2 (09:17→20:26)
[2020-09-02] MEDS: DOCUSATE SODIUM 100 MG CAP PO SCH ×2 (09:17→20:26)
--- NOTE | 2020-09-02 11:50 | Surgery Progress Note ---
Date of Service September 02, 2020 Assessment & Plan (1) Colon obstruction: s/p colonic stent. Now having loose bowel movements. OK to advance diet. Will sign off as appears to be successfully decompressed with stent. Please call with questions. Present on Admission?: Yes Admission and Anticipated Discharge Date Admission Date: August 25, 2020 Subjective Sitting up in bed. Notes he is having bowel movements now, somewhat runny and greenish. No complaints of pain. Was able to tolerate eating, no nausea but not much of an appetite yet. Physical Exam Constitutional: + cachectic Respiratory: normal respiratory effort, lungs clear to auscultation Cardiovascular: Rate/Rhythm: regular rate and regular rhythm Gastrointestinal (Abdomen): Inspection/Auscultation: abdomen normal to inspection and normal bowel sounds Percussion/Palpation: abdomen soft; abdomen nontender and no guarding Neurologic: moves all extremities Psychiatric: Orientation: alert and oriented x 3 Results & Data ([facility]) Vital Signs (Past 12 Hours) Vital Signs Temp Pulse Pulse Resp BP Pulse Ox 09/02/20 11:10 36.3 C L 66 20 90/55 L 99 09/02/20 09:05 64 09/02/20 07:51 36.3 C L 60 20 94/58 L 98 09/02/20 04:00 36.3 C L 64 18 94/59 L 99 09/02/20 02:13 64
--- NOTE | 2020-09-02 16:00 | Hospitalist Progress Note ---
Date of Service September 02, 2020 Assessment & Plan (1) Fever: (1) Fever: Abdominal pain /Nausea secondary to Colonic Partial Bowel Obstruction pain in localized to lower abdomen s/p Colonoscopy: (+) tumor growth over old stent new stent placed -- repeat KUB: 1. There are now 2 overlapping colonic stents with the left side of the colon. 2. No change in the distended and stool-filled large bowel proximal to the stent. -- diet advanced to full liquids d/c IV fluids monitor closely continue Zosyn Possible due to pyelonephritis /Pneumonia -- Urine culture negative completed 7 days of Doxycycline for possible PNA Hypotension resolved no orthostatic BP change doubt dehydration as pt received multiple IV fluid bolus , iV fluid resuscitation during this admission started on Midodrine 5 mg tid , dose increased to 10mg TID , sbp has been in low 100's since no symptoms of dizzy spell or lightheadedness Colon ca on Chemo : Metastatic colon cancer stage IV: Follows with hematology/oncology, had last chemo the week before admission follow up with heme onc in clinic Pancytopenia : due to chemo neutropenic precautions improving continue to monitor CBC Pneumonia: Per Dr. Leyva's notes: Possible pneumonia and mucus plugging on CAT scan no cough or sob , no fever on cefepime and Doxy abx changed to Doxycycline -completed 7 days tx Severe protein-calorie malnutrition Can Operator on board Full code Deep venous thrombosis prophylaxis: Sequential compression devices/thrombocytopenia in light of thrombocytopenia encouraged to ambulated Disposition : PT/OT radhaal requested lives at home with Daughter and son in law , able to provide care round the clock will benefit with home health and home PT on discharge Admission and Anticipated Discharge Date Admission Date: August 25, 2020 Subjective ff up for partial colon obstruction etc seen resting in bed, comfortable in good spirits states he feels improved today compared to yesterday has mild LLQ discomfort but otherwise tolerates full liquid diet well no chest pain, dyspnea, palpitations, dizziness no fever/chills no other symptoms Review of Systems Review of Systems: All systems reviewed & are unremarkable except as noted in Subjective Physical Exam Physical Exam: General- oriented x 2, not in distress, speaks in sentences with no effort or accessory muscle use Eyes- anicteric Neck- no JVD Lungs- clear breath sounds bilaterally, no rales/wheezes Heart- normal rate, regular rhythm; no murmurs Abdomen- normal bowel sounds, nondistended, soft, mild tendernes LLQ Extremities- no pretibial edema, no calf tenderness Neuro- alert, oriented x 3; no gross focal neurologic deficits Skin- warm & dry Results & Data Results & Data ([facility]) Vital Signs (Past 12 Hours) Vital Signs Temp Pulse Pulse Resp BP Pulse Ox 09/02/20 15:22 36.4 C L 58 L 18 98/64 L 100 09/02/20 11:10 36.3 C L 66 20 90/55 L 99 09/02/20 09:05 64 09/02/20 07:51 36.3 C L 60 20 94/58 L 98 09/02/20 04:00 36.3 C L 64 18 94/59 L 99 all noted and reviewed including below
[2020-09-02] MEDS: CARBOHYDRATES FOR HYPOGLYCEMIA PO PRN ×2 (16:42→17:00)
[2020-09-02] MEDS: D5W AND NSS 1,000 ML IV SCH (17:51)
[2020-09-02] MEDS: MIRTAZAPINE TAB 15 MG TAB PO SCH (20:26)
[2020-09-03] MEDS: PIPERACILLIN/TAZOBACTAM 3.375 GM in DEXTROSE 5% 100 ML IV SCH ×3 (00:35→15:52)
[2020-09-03 05:22] LABS: Hemoglobin 8.1 g/dL (14.0-18.0); Mean Corpuscular Hemoglobin 29.6 pg (25-34); Mean Corpuscular Hgb Conc 31.2 g/dL (32-36); Mean Corpuscular Volume 94.9 fL (80-100); RDW Coefficient of Variation 16.6 % (11.5-14.5); RDW Standard Deviation 57.4 fL (36.4-46.3); Red Blood Count 2.74 M/uL (4.7-6.1); White Blood Count 2.19 K/uL (4.8-10.8)
[2020-09-03 05:27] LABS: Mean Platelet Volume 8.3 fL (7.4-10.4); Platelet Count 90 K/uL (130-400)
[2020-09-03 06:00] LABS: Calcium 7.9 mg/dl (8.5-10.1); Creatinine Clr Calc Pharmacy 168.6 ml/min; Est GFR (African American) 146.1; Potassium 3.9 mmol/L (3.5-5.1)
[2020-09-03 06:06] LABS: Eosinophils # (auto) 0.11 K/uL (0-0.5); Giant Platelets 1+; Lymphocytes # (auto) 1.06 K/uL (1.2-3.4); Lymphocytes % (auto) 48.4 %; Monocytes # (auto) 0.21 K/uL (0.11-0.59); Monocytes % (auto) 9.6 %; Neutrophils # (auto) 0.81 K/uL (1.4-6.5)
[2020-09-03] MEDS: FERROUS SULFATE 325 MG TAB PO SCH ×2 (08:22→20:53)
[2020-09-03] MEDS: CYANOCOBALAMIN 500 MCG TABLET (VITAMIN B-12) PO SCH (08:23)
[2020-09-03] MEDS: MIDODRINE HCL 10 MG TAB PO SCH ×3 (08:24→17:22)
[2020-09-03] MEDS: POLYETHYLENE (MIRALAX) 17 GM PACK PO SCH (08:24)
[2020-09-03] MEDS: DOCUSATE SODIUM 100 MG CAP PO SCH ×2 (08:29→20:23)
[2020-09-03] MEDS: MoRPHine SULFATE CR 15 MG TABCR PO SCH ×2 (08:32→20:53)
[2020-09-03] MEDS: D5W AND NSS 1,000 ML IV SCH (10:36)
--- NOTE | 2020-09-03 12:50 | XRay Report ---
KUB CLINICAL HISTORY: ff up partial colonic obstruction s/p stent COMPARISON STUDY: CT of the abdomen and pelvis August 29, 2020. KUB September 01, 2020. FINDINGS: Left colon stents are in place. Mild to moderate gaseous distention of the colon is similar to prior exam. Small bowel dilatation has slightly improved. IMPRESSION: Persistent mild to moderate colonic dilatation. Left colon stents unchanged in position. ACT 112: Negative or not required by law. Electronically signed by: Manolo Amaral M.D. 09/03/2020 12:48 PM
--- NOTE | 2020-09-03 12:58 | Surgery Progress Note ---
Date of Service September 03, 2020 Assessment & Plan (1) Colon obstruction: s/p colonic stent. Now having loose bowel movements. On regular diet. Will sign off. Admission and Anticipated Discharge Date Admission Date: August 25, 2020 Subjective Bowels functioning. on regular diet but low appetite. F/u KUB shows stents in place, persistent mild to moderate colonic dilation. Physical Exam Constitutional: + cachectic Respiratory: normal respiratory effort, lungs clear to auscultation Cardiovascular: Rate/Rhythm: regular rate and regular rhythm Gastrointestinal (Abdomen): Inspection/Auscultation: abdomen normal to inspection and normal bowel sounds Percussion/Palpation: abdomen soft; abdomen nontender and no guarding Neurologic: moves all extremities Psychiatric: Orientation: alert and oriented x 3 Results & Data ([facility]) Vital Signs (Past 12 Hours) Vital Signs Temp Pulse Pulse Resp BP Pulse Ox 09/03/20 11:38 36.3 C L 63 20 94/68 L 100 09/03/20 07:30 36.3 C L 63 20 102/64 100 09/03/20 06:57 58 L 09/03/20 04:00 36.3 C L 61 20 97/62 L 98
--- NOTE | 2020-09-03 13:02 | Ultrasound Report ---
BILATERAL LOWER EXTREMITY VENOUS DOPPLER CLINICAL HISTORY: leg edema r/o dvt COMPARISON STUDY: Left lower extremity venous Doppler ultrasound May 14, 2018. TECHNIQUE: Sonography of the deep venous system of the bilateral lower extremities was performed. Co mpression and augmentation were evaluated. FINDINGS: The right common femoral, superficial femoral and popliteal veins were compressible. Augme ntation was normal. Note is made of deep venous thrombus within the left femoral and popliteal veins. Popliteal vein is expanded. IMPRESSION: 1. Deep venous thrombus within the left femoral and popliteal veins. This thrombus is likely acute. 2. No evidence of deep venous thrombus within the right lower extremity. ACT 112: Negative or not required by law. Electronically signed by: Manolo Amaral M.D. 09/03/2020 1:01 PM
[2020-09-03] MEDS ORDERED: Heparin IV Adult Wt-Based Low-Dose *NO* Bolus Protocol IV SCH (15:49)
--- NOTE | 2020-09-03 16:02 | Hospitalist Progress Note ---
Date of Service September 03, 2020 Assessment & Plan (1) Fever: (1) Fever: Abdominal pain /Nausea secondary to Colonic Partial Bowel Obstruction pain in localized to lower abdomen s/p Colonoscopy: (+) tumor growth over old stent new stent placed -- repeat KUB: 1. There are now 2 overlapping colonic stents with the left side of the colon. 2. No change in the distended and stool-filled large bowel proximal to the stent. -- diet advanced to soft diet d/c IV fluids monitor closely continue Zosyn Possible due to pyelonephritis /Pneumonia -- Urine culture negative completed 7 days of Doxycycline for possible PNA LLE DVT -- Acute -- discussed with Dr. Meraz Heparin drip low dose, no bolus monitor Plt, Hg has history of hematochezia, monitor Hypotension resolved no orthostatic BP change doubt dehydration as pt received multiple IV fluid bolus , iV fluid resuscitation during this admission started on Midodrine 5 mg tid , dose increased to 10mg TID , sbp has been in low 100's since no symptoms of dizzy spell or lightheadedness Colon ca on Chemo : Metastatic colon cancer stage IV: Follows with hematology/oncology, had last chemo the week before admission follow up with heme onc in clinic Pancytopenia : due to chemo neutropenic precautions improving continue to monitor CBC Pneumonia: Per Dr. 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 Full code Deep venous thrombosis prophylaxis: Sequential compression devices/thrombocytopenia in light of thrombocytopenia encouraged to ambulated Disposition : PT/OT julieta requested lives at home with Daughter and son in law , able to provide care round the clock will benefit with home health and home PT on discharge Admission and Anticipated Discharge Date Admission Date: August 25, 2020 Subjective ff up for partial colon obstruction seen resting in chair, comfortable states he feels fine overall no abdominal pain tolerating diet well (+) BMs no chest pain, dyspnea, palpitations, dizziness no other symptoms Review of Systems Review of Systems: All systems reviewed & are unremarkable except as noted in Subjective Physical Exam Physical Exam: General- oriented x 3, not in distress, speaks in sentences with no effort or accessory muscle use Eyes- anicteric Neck- no JVD Lungs- clear breath sounds bilaterally Heart- normal rate, regular rhythm; no murmurs Abdomen- normal bowel sounds, nondistended, soft, nontender Extremities- (+) LLE edema, no calf tenderness Neuro- alert, oriented x 3; no gross focal neurologic deficits Skin- warm & dry Results & Data Results & Data ([facility]) Vital Signs (Past 12 Hours) Vital Signs Temp Pulse Pulse Resp BP Pulse Ox 09/03/20 15:01 36.2 C L 63 18 118/78 100 09/03/20 11:38 36.3 C L 63 20 94/68 L 100 09/03/20 07:30 36.3 C L 63 20 102/64 100 09/03/20 06:57 58 L Laboratory Results Laboratory Results - last 24 hr 09/02/20 09/03/20 09/03/20 20:06 05:06 05:06 WBC 2.19 L RBC 2.74 L Hgb 8.1 L Hct 26.0 L MCV 94.9 MCH 29.6 MCHC 31.2 L RDW Std Deviation 57.4 H RDW Coeff of Ivette 16.6 H Plt Count 90 L MPV 8.3 Immature Gran % (Auto) 0.0 Neut % (Auto) 37.0 Lymph % (Auto) 48.4 [place] % (Auto) 9.6 Eos % (Auto) 5.0 Baso % (Auto) 0.0 Neut # (Auto) 0.81 L* Lymph # (Auto) 1.06 L [place] # (Auto) 0.21 Eos # (Auto) 0.11 Baso # (Auto) 0.00 Immature Gran # (Auto) 0.00 Giant Platelets 1+ Sodium 142 Potassium 3.9 D Chloride 113 H Carbon Dioxide 24 Anion Gap 5.0 BUN 7 Creatinine 0.41 L Est Cr Clr Drug Dosing 168.6 Est GFR ( Amer) 146.1 Est GFR (Non-Af Amer) 126.0 BUN/Creatinine Ratio 18.0 Glucose 111 H POC Glucose 163 H Calcium 7.9 L 09/03/20 09/03/20 09/03/20 07:25 11:28 16:15 WBC RBC Hgb Hct MCV MCH MCHC RDW Std Deviation RDW Coeff of Ivette Plt Count MPV Immature Gran % (Auto) Neut % (Auto) Lymph % (Auto) [place] % (Auto) Eos % (Auto) Baso % (Auto) Neut # (Auto) Lymph # (Auto) [place] # (Auto) Eos # (Auto) Baso # (Auto) Immature Gran # (Auto) Giant Platelets Sodium Potassium Chloride Carbon Dioxide Anion Gap BUN Creatinine Est Cr Clr Drug Dosing Est GFR ( Amer) Est GFR (Non-Af Amer) BUN/Creatinine Ratio Glucose POC Glucose 100 H 166 H 123 H Calcium
[2020-09-03] MEDS: HEPARIN SODIUM/DEXTROSE 25,000 UNITS/500 ML BAG IV SCH (16:24)
[2020-09-03] MEDS: MIRTAZAPINE TAB 15 MG TAB PO SCH (20:53)
[2020-09-03 22:50] LABS: Partial Thromboplastin Ratio 1.2; Partial Thromboplastin Time 30.7 Seconds (21.0-31.0)
[2020-09-03] MEDS ORDERED: HEPARIN IV BOLUS 4,500 UNITS in SYRINGE 0 ML IV STA (23:59)
[2020-09-04] MEDS: PIPERACILLIN/TAZOBACTAM 3.375 GM in DEXTROSE 5% 100 ML IV SCH ×3 (00:13→16:37)
[2020-09-04 06:38] LABS: Hematocrit (blood only) 27.2 % (42-52); Hemoglobin 8.4 g/dL (14.0-18.0); Mean Corpuscular Hemoglobin 29.7 pg (25-34); Mean Corpuscular Hgb Conc 30.9 g/dL (32-36); Mean Corpuscular Volume 96.1 fL (80-100); RDW Coefficient of Variation 16.2 % (11.5-14.5); RDW Standard Deviation 57.1 fL (36.4-46.3); Red Blood Count 2.83 M/uL (4.7-6.1); White Blood Count 2.11 K/uL (4.8-10.8)
[2020-09-04 06:42] LABS: Mean Platelet Volume 8.9 fL (7.4-10.4); Platelet Count 75 K/uL (130-400)
[2020-09-04 06:56] LABS: Partial Thromboplastin Ratio 2.1
[2020-09-04 06:59] LABS: Eosinophils # (auto) 0.07 K/uL (0-0.5); Eosinophils % (auto) 3.3 %; Lymphocytes # (auto) 0.99 K/uL (1.2-3.4); Lymphocytes % (auto) 46.9 %; Monocytes # (auto) 0.23 K/uL (0.11-0.59); Monocytes % (auto) 10.9 %; Neutrophils # (auto) 0.82 K/uL (1.4-6.5); Neutrophils % (auto) 38.9 %
[2020-09-04 07:01] LABS: Partial Thromboplastin Time 56.1 Seconds (21.0-31.0)
[2020-09-04 07:02] LABS: BUN Creatinine Ratio 18.5 (10-20); Calcium 8.5 mg/dl (8.5-10.1); Creatinine Clr Calc Pharmacy 121.3 ml/min; Est GFR (African American) 127.6; Est GFR (Non-African American) 110.1; Potassium 3.9 mmol/L (3.5-5.1)
[2020-09-04] MEDS: FERROUS SULFATE 325 MG TAB PO SCH ×2 (08:04→21:36)
[2020-09-04] MEDS: CYANOCOBALAMIN 500 MCG TABLET (VITAMIN B-12) PO SCH (08:04)
[2020-09-04] MEDS: MIDODRINE HCL 10 MG TAB PO SCH ×3 (08:04→17:20)
[2020-09-04 08:07] LABS: Folate (Folic Acid) 14.1 ng/ml (>5.38)
[2020-09-04] MEDS: MoRPHine SULFATE CR 15 MG TABCR PO SCH ×2 (08:08→21:35)
[2020-09-04] MEDS: DOCUSATE SODIUM 100 MG CAP PO SCH ×2 (12:29→21:39)
[2020-09-04] MEDS: POLYETHYLENE (MIRALAX) 17 GM PACK PO SCH (12:29)
[2020-09-04] MEDS ORDERED: FUROSEMIDE 20 MG in SYRINGE 0 ML IV ONE (18:30)
[2020-09-04] MEDS: HEPARIN SODIUM/DEXTROSE 25,000 UNITS/500 ML BAG IV SCH (19:43)
--- NOTE | 2020-09-04 19:53 | Hospitalist Progress Note ---
Date of Service delayed entry date of service noted below September 04, 2020 Assessment & Plan (1) Fever: (1) Fever: Abdominal pain /Nausea secondary to Colonic Partial Bowel Obstruction pain in localized to lower abdomen s/p Colonoscopy: (+) tumor growth over old stent new stent placed -- repeat KUB: 1. There are now 2 overlapping colonic stents with the left side of the colon. 2. No change in the distended and stool-filled large bowel proximal to the stent. -- diet advanced to soft diet d/c IV fluids still with no BM, repeat KUB still showing colonic distention will re-consult GI monitor closely continue Zosyn Possible due to pyelonephritis /Pneumonia -- Urine culture negative completed 7 days of Doxycycline for possible PNA LLE DVT -- Acute -- discussed with Dr. Meraz Heparin drip low dose, no bolus monitor Plt, Hg has history of hematochezia, monitor Hypotension resolved no orthostatic BP change doubt dehydration as pt received multiple IV fluid bolus , iV fluid resuscitation during this admission started on Midodrine 5 mg tid , dose increased to 10mg TID , sbp has been in low 100's since no symptoms of dizzy spell or lightheadedness Colon ca on Chemo : Metastatic colon cancer stage IV: Follows with hematology/oncology, had last chemo the week before admission follow up with heme onc in clinic Pancytopenia : due to chemo neutropenic precautions improving continue to monitor CBC Pneumonia: Per Dr. 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 Deep venous thrombosis prophylaxis: Sequential compression devices/thrombocytopenia in light of thrombocytopenia encouraged to ambulated Disposition : PT/OT eval requested lives at home with Daughter and son in law , able to provide care round the clock will benefit with home health and home PT on discharge plan of care discussed with patient in detail all questions answered he is understanding, agreeable, comfortable with the plan of care Admission and Anticipated Discharge Date Admission Date: August 25, 2020 Subjective ff up for colon obstruction, etc seen resting in bed, comfortable states he feels ok has mild LLQ discomfort but tolerating diet well no nausea no chest pain, dyspnea, bleeding no BM yet, (+) occasional flatus no other symptoms Review of Systems Review of Systems: All systems reviewed & are unremarkable except as noted in Subjective Physical Exam Physical Exam: General- oriented x 3, not in distress, speaks in sentences with no effort or accessory muscle use Eyes- anicteric Neck- no JVD Lungs- clear BS BL Heart- normal rate, regular rhythm; no murmurs Abdomen- normal bowel sounds, nondistended, soft, mild LLQ tenderness Extremities- mild LLQ edema, no calf tenderness Neuro- alert, oriented x 3; no gross focal neurologic deficits Skin- warm & dry Results & Data Results & Data ([facility]) Vital Signs (Past 12 Hours) Vital Signs Temp Pulse Pulse Resp BP Pulse Ox 09/04/20 19:26 36.6 C 59 L 20 105/66 98 09/04/20 15:14 70 09/04/20 15:04 36.4 C L 66 16 94/62 L 100 09/04/20 11:35 36.6 C 68 16 90/64 L 100 09/04/20 08:30 90 all noted and reviewed including below
[2020-09-04] MEDS: MIRTAZAPINE TAB 15 MG TAB PO SCH (21:35)
[2020-09-05] MEDS: CYANOCOBALAMIN 500 MCG TABLET (VITAMIN B-12) PO SCH (07:23)
[2020-09-05] MEDS: FERROUS SULFATE 325 MG TAB PO SCH ×2 (07:23→20:43)
[2020-09-05] MEDS: MIDODRINE HCL 10 MG TAB PO SCH ×3 (07:24→16:37)
[2020-09-05 07:38] LABS: Hematocrit (blood only) 25.5 % (42-52); Hemoglobin 8.1 g/dL (14.0-18.0); Mean Corpuscular Hemoglobin 30.2 pg (25-34); Mean Corpuscular Hgb Conc 31.8 g/dL (32-36); Mean Corpuscular Volume 95.1 fL (80-100); RDW Coefficient of Variation 15.8 % (11.5-14.5); RDW Standard Deviation 54.7 fL (36.4-46.3); Red Blood Count 2.68 M/uL (4.7-6.1); White Blood Count 1.84 K/uL (4.8-10.8)
[2020-09-05 07:44] LABS: Partial Thromboplastin Ratio 1.6; Partial Thromboplastin Time 41.4 Seconds (21.0-31.0)
[2020-09-05 07:50] LABS: Mean Platelet Volume 8.5 fL (7.4-10.4); Platelet Count 58 K/uL (130-400)
[2020-09-05 08:07] LABS: BUN Creatinine Ratio 27.6 (10-20); Calcium 8.5 mg/dl (8.5-10.1); Creatinine Clr Calc Pharmacy 135.5 ml/min; Est GFR (African American) 133.5; Est GFR (Non-African American) 115.2; Potassium 3.8 mmol/L (3.5-5.1)
[2020-09-05 08:20] LABS: Eosinophils # (auto) 0.05 K/uL (0-0.5); Eosinophils % (auto) 2.7 %; Lymphocytes # (auto) 0.71 K/uL (1.2-3.4); Lymphocytes % (auto) 38.6 %; Monocytes # (auto) 0.23 K/uL (0.11-0.59); Monocytes % (auto) 12.5 %; Neutrophils # (auto) 0.85 K/uL (1.4-6.5); Neutrophils % (auto) 46.2 %
[2020-09-05] MEDS: MoRPHine SULFATE CR 15 MG TABCR PO SCH ×2 (08:23→20:43)
[2020-09-05] MEDS: DOCUSATE SODIUM 100 MG CAP PO SCH ×2 (08:23→20:43)
--- NOTE | 2020-09-05 08:54 | Communication Note ---
Date of Service: September 05, 2020 GI asked to re-evaluate given unchanged KUB. Pt denies any abd pain but does have bloating. Tolerating PO intake without nausea/vomiting. Just finished denise kfast, pancakes. Last BM was two days ago despite bowel regimen. Denies any black/bloody stools. KUB 09/03/20: Persistent mild to moderate colonic dilatation. Left colon stents unchanged in position. Can continue diet. Give 2L golytely. Repeat KUB in AM. If unchanged, consider repeat endoscopic eval and unclog the stent. I performed a history and physical examination of the patient today, including specifically on physical exam - soft abdomen. I have discussed the patient's management with the advanced practitioner. Please refer to the nurse practitioner's note for the documented findings and plan of care.
[2020-09-05] MEDS ORDERED: LAVAGE SOLUTION 4000ML PO SCH (10:30)
[2020-09-05] MEDS: POLYETHYLENE (MIRALAX) 17 GM PACK PO SCH (11:31)
[2020-09-05] MEDS: HEPARIN SODIUM/DEXTROSE 25,000 UNITS/500 ML BAG IV SCH (16:34)
[2020-09-05 20:42] LABS: Partial Thromboplastin Ratio 1.6; Partial Thromboplastin Time 41.8 Seconds (21.0-31.0)
[2020-09-05] MEDS: MIRTAZAPINE TAB 15 MG TAB PO SCH (20:43)
--- NOTE | 2020-09-05 21:29 | Hospitalist Progress Note ---
Date of Service September 05, 2020 Assessment & Plan (1) Fever: (1) Fever: Abdominal pain /Nausea secondary to Colonic Partial Bowel Obstruction pain in localized to lower abdomen s/p Colonoscopy: (+) tumor growth over old stent new stent placed -- repeat KUB: 1. There are now 2 overlapping colonic stents with the left side of the colon. 2. No change in the distended and stool-filled large bowel proximal to the stent. -- diet advanced to soft diet Completed 7 days of Zosyn --Tolerating diet but repeat KUB shows persistent dilatation of the large colon proximal to distal No BM x2 days GI service reconsulted, recommend GoLYTELY today, KUB tomorrow, if with no improvement may need repeat colonoscopy Possible due to pyelonephritis /Pneumonia -- Urine culture negative completed 7 days of Doxycycline for possible PNA LLE DVT Thrombocytopenia -- Acute -- discussed with Dr. Meraz Heparin drip low dose, no bolus monitor Plt, Hg has history of hematochezia, monitor for bleeding, hemoglobin stable so far Transition to Lovenox upon discharge Hypotension resolved no orthostatic BP change doubt dehydration as pt received multiple IV fluid bolus , iV fluid resuscitation during this admission started on Midodrine 5 mg tid , dose increased to 10mg TID , sbp has been in low 100's since no symptoms of dizzy spell or lightheadedness Colon ca on Chemo : Metastatic colon cancer stage IV: Follows with hematology/oncology, had last chemo the week before admission follow up with heme onc in clinic Pancytopenia : due to chemo neutropenic precautions improving continue to monitor CBC Pneumonia: Per Dr. 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 Seen resting in bedside chair, comfortable, not in distress, in good spirits States he feels fine today overall Has mild left lower quadrant discomfort but tolerating soft diet well Still has no BMs, occasional flatus No nausea or vomiting Chest pain, shortness of breath, palpitations, dizziness No other symptoms Review of Systems Review of Systems: All systems reviewed & are unremarkable except as noted in Subjective Physical Exam Physical Exam: General- oriented x 3, not in distress, speaks in sentences with no effort or accessory muscle use Eyes- anicteric Neck- no JVD Lungs- clear breath sounds bilaterally Heart- normal rate, regular rhythm; no murmurs Abdomen- normal bowel sounds, nondistended, soft, nontender Extremities-mild left lower extremity edema, no calf tenderness Neuro- alert, oriented x 3; no gross focal neurologic deficits Skin- warm & dry Results & Data Results & Data ([facility]) Vital Signs (Past 12 Hours) Vital Signs Temp Pulse Pulse Resp BP BP Pulse Ox 09/05/20 20:00 36.7 C 68 18 92/58 L 97 09/05/20 17:36 69 09/05/20 15:31 36.4 C L 67 18 103/72 100 09/05/20 11:17 36.5 C 75 16 108/75 99 09/05/20 09:30 67 Laboratory Results Laboratory Results - last 24 hr 09/05/20 09/05/20 09/05/20 07:14 07:14 07:14 WBC 1.84 L RBC 2.68 L Hgb 8.1 L Hct 25.5 L MCV 95.1 MCH 30.2 MCHC 31.8 L RDW Std Deviation 54.7 H RDW Coeff of Ivette 15.8 H Plt Count 58 L MPV 8.5 Immature Gran % (Auto) 0.0 Neut % (Auto) 46.2 Lymph % (Auto) 38.6 Converse % (Auto) 12.5 Eos % (Auto) 2.7 Baso % (Auto) 0.0 Neut # (Auto) 0.85 L* Lymph # (Auto) 0.71 L [place]verse # (Auto) 0.23 Eos # (Auto) 0.05 Baso # (Auto) 0.00 Immature Gran # (Auto) 0.00 APTT 41.4 H PTT Ratio 1.6 Sodium 140 Potassium 3.8 Chloride 106 Carbon Dioxide 29 Anion Gap 6.0 BUN 14 Creatinine 0.51 L Est Cr Clr Drug Dosing 135.5 Est GFR ( Amer) 133.5 Est GFR (Non-Af Amer) 115.2 BUN/Creatinine Ratio 27.6 H Glucose 111 H POC Glucose Calcium 8.5 09/05/20 09/05/20 09/05/20 07:23 11:34 16:44 WBC RBC Hgb Hct MCV MCH MCHC RDW Std Deviation RDW Coeff of Ivette Plt Count MPV Immature Gran % (Auto) Neut % (Auto) Lymph % (Auto) [place]verse % (Auto) Eos % (Auto) Baso % (Auto) Neut # (Auto) Lymph # (Auto) [place]verse # (Auto) Eos # (Auto) Baso # (Auto) Immature Gran # (Auto) APTT PTT Ratio Sodium Potassium Chloride Carbon Dioxide Anion Gap BUN Creatinine Est Cr Clr Drug Dosing Est GFR ( Amer) Est GFR (Non-Af Amer) BUN/Creatinine Ratio Glucose POC Glucose 131 H 186 H 128 H Calcium 09/05/20 09/05/20 20:12 20:13 WBC RBC Hgb Hct MCV MCH MCHC RDW Std Deviation RDW Coeff of Ivette Plt Count MPV Immature Gran % (Auto) Neut % (Auto) Lymph % (Auto) [place]verse % (Auto) Eos % (Auto) Baso % (Auto) Neut # (Auto) Lymph # (Auto) [place]verse # (Auto) Eos # (Auto) Baso # (Auto) Immature Gran # (Auto) APTT 41.8 H PTT Ratio 1.6 Sodium Potassium Chloride Carbon Dioxide Anion Gap BUN Creatinine Est Cr Clr Drug Dosing Est GFR ( Amer) Est GFR (Non-Af Amer) BUN/Creatinine Ratio Glucose POC Glucose 168 H Calcium
[2020-09-06 03:47] LABS: Hematocrit (blood only) 25.1 % (42-52); Hemoglobin 7.9 g/dL (14.0-18.0); Mean Corpuscular Hemoglobin 30.3 pg (25-34); Mean Corpuscular Hgb Conc 31.5 g/dL (32-36); Mean Corpuscular Volume 96.2 fL (80-100); RDW Standard Deviation 55.7 fL (36.4-46.3); Red Blood Count 2.61 M/uL (4.7-6.1); White Blood Count 2.11 K/uL (4.8-10.8)
[2020-09-06 04:01] LABS: Partial Thromboplastin Ratio 1.7
[2020-09-06 04:08] LABS: Mean Platelet Volume 8.4 fL (7.4-10.4); Platelet Count 55 K/uL (130-400)
[2020-09-06 04:09] LABS: BUN Creatinine Ratio 27.8 (10-20); Creatinine Clr Calc Pharmacy 115.2 ml/min; Est GFR (African American) 124.9; Est GFR (Non-African American) 107.8; Potassium 4.2 mmol/L (3.5-5.1)
[2020-09-06 04:10] LABS: Eosinophils # (auto) 0.07 K/uL (0-0.5); Eosinophils % (auto) 3.3 %; Lymphocytes # (auto) 0.89 K/uL (1.2-3.4); Lymphocytes % (auto) 42.2 %; Monocytes # (auto) 0.27 K/uL (0.11-0.59); Monocytes % (auto) 12.8 %; Neutrophils # (auto) 0.88 K/uL (1.4-6.5); Neutrophils % (auto) 41.7 %; RBC Morphology Unremarkable
--- NOTE | 2020-09-06 09:12 | Gastroenterology Progress Note ---
Date of Service September 06, 2020 Assessment & Plan (1) Colon cancer: (2) Colon obstruction: Pt is a 60 y/o male currently admitted for sepsis (pneumonia, ? pyelonephritis), seen for bowel obstruction. Hx of metastatic colon ca on chemo and s/p colonic stent placement 05/2020. Ct abd/pelvis showed signs of dilated colon proximal to stent and level obstruction at stent area. S/P colonoscopy w repeat colonic stent placement on 08/30. He is passing liquid stools and little flatus. Abd soft, non tender. Moving bowels now s/p purge KUB ordered but not obtained. - No GI contraindication to DC - Increase Miralax 2 capuls twice daily for 48 hours then can use 1 capful 1-2 times daily titrated to his BMs with hope to move stool daily - Low fiber diet to prevent stent from getting clogged - GI to sign off; pls recall prn Admission and Anticipated Discharge Date Admission Date: August 25, 2020 Supervising Physician Co-Signing Physician Notes I have discussed the patient's management with the advanced practitioner. Please refer to the nurse practitioner's note for the documented findings and plan of care. Subjective Tolerated bowel purge Moved stools overnight Loose to start then some small, formed pieces No pain Tolerating PO Wants to go home KUB: order but not done yet Review of Systems Constitutional: no fever, no chills and no fatigue Respiratory: no cough and no dyspnea Cardiovascular: no chest pain and no dyspnea Gastrointestinal: no abdominal pain, no nausea, no coffee ground emesis, no blood in stools and no melena Physical Exam Constitutional: + ill appearing and + thin; not intoxicated appearing and + not appropriately hydrated Neck: trachea midline Respiratory: normal respiratory effort, lungs clear to auscultation Cardiovascular: RRR, no murmur, no edema Gastrointestinal (Abdomen): normal bowel sounds, soft, nontender, no hepatosplenomegaly Results & Data ([facility]) Vital Signs (Past 12 Hours) Vital Signs Temp Pulse Pulse Resp BP Pulse Ox 09/06/20 07:58 36.3 C L 77 18 99/64 L 97 09/06/20 07:29 66 09/06/20 03:08 36.2 C L 69 18 95/58 L 98 09/05/20 23:50 65 09/05/20 23:38 36.6 C 70 18 94/58 L 97 Laboratory Results 09/06/20 09/06/20 09/06/20 Range/Units 07:54 03:33 03:33 WBC (4.8-10.8) K/uL RBC (4.7-6.1) M/uL Hgb (14.0-18.0) g/dL Hct (42-52) % MCV (80-100) fL MCH (25-34) pg MCHC (32-36) g/dL RDW Std Deviation (36.4-46.3) fL RDW Coeff of Ivette (11.5-14.5) % Plt Count (130-400) K/uL MPV (7.4-10.4) fL Immature Gran % (Auto) % Neut % (Auto) % Lymph % (Auto) % Coffey % (Auto) % Eos % (Auto) % Baso % (Auto) % Neut # (Auto) (1.4-6.5) K/uL Lymph # (Auto) (1.2-3.4) K/uL Coffey # (Auto) (0.11-0.59) K/uL Eos # (Auto) (0-0.5) K/uL Baso # (Auto) (0-0.2) K/uL Immature Gran # (Auto) (0.00-0.02) K/uL RBC Morphology APTT 45.0 H (21.0-31.0) Seconds PTT Ratio 1.7 Sodium 142 (136-145) mmol/L Potassium 4.2 (3.5-5.1) mmol/L Chloride 109 H (98-107) mmol/L Carbon Dioxide 30 (21-32) mmol/L Anion Gap 3.0 (3-11) BUN 17 (7-18) mg/dl Creatinine 0.60 (0.6-1.4) mg/dl Est Cr Clr Drug Dosing 115.2 ml/min Est GFR ( Amer) 124.9 Est GFR (Non-Af Amer) 107.8 BUN/Creatinine Ratio 27.8 H (10-20) Glucose 116 H (70-99) mg/dl POC Glucose 124 H (70-99) mg/dl Calcium 8.0 L (8.5-10.1) mg/dl 09/06/20 09/05/20 09/05/20 Range/Units 03:33 20:13 20:12 WBC 2.11 L (4.8-10.8) K/uL RBC 2.61 L (4.7-6.1) M/uL Hgb 7.9 L (14.0-18.0) g/dL Hct 25.1 L (42-52) % MCV 96.2 (80-100) fL MCH 30.3 (25-34) pg MCHC 31.5 L (32-36) g/dL RDW Std Deviation 55.7 H (36.4-46.3) fL RDW Coeff of Ivette 16.0 H (11.5-14.5) % Plt Count 55 L (130-400) K/uL MPV 8.4 (7.4-10.4) fL Immature Gran % (Auto) 0.0 % Neut % (Auto) 41.7 % Lymph % (Auto) 42.2 % Coffey % (Auto) 12.8 % Eos % (Auto) 3.3 % Baso % (Auto) 0.0 % Neut # (Auto) 0.88 L* (1.4-6.5) K/uL Lymph # (Auto) 0.89 L (1.2-3.4) K/uL Coffey # (Auto) 0.27 (0.11-0.59) K/uL Eos # (Auto) 0.07 (0-0.5) K/uL Baso # (Auto) 0.00 (0-0.2) K/uL Immature Gran # (Auto) 0.00 (0.00-0.02) K/uL RBC Morphology Unremarkable APTT 41.8 H (21.0-31.0) Seconds PTT Ratio 1.6 Sodium (136-145) mmol/L Potassium (3.5-5.1) mmol/L Chloride (98-107) mmol/L Carbon Dioxide (21-32) mmol/L Anion Gap (3-11) BUN (7-18) mg/dl Creatinine (0.6-1.4) mg/dl Est Cr Clr Drug Dosing ml/min Est GFR ( Amer) Est GFR (Non-Af Amer) BUN/Creatinine Ratio (10-20) Glucose (70-99) mg/dl POC Glucose 168 H (70-99) mg/dl Calcium (8.5-10.1) mg/dl 09/05/20 09/05/20 Range/Units 16:44 11:34 WBC (4.8-10.8) K/uL RBC (4.7-6.1) M/uL Hgb (14.0-18.0) g/dL Hct (42-52) % MCV (80-100) fL MCH (25-34) pg MCHC (32-36) g/dL RDW Std Deviation (36.4-46.3) fL RDW Coeff of Ivette (11.5-14.5) % Plt Count (130-400) K/uL MPV (7.4-10.4) fL Immature Gran % (Auto) % Neut % (Auto) % Lymph % (Auto) % Coffey % (Auto) % Eos % (Auto) % Baso % (Auto) % Neut # (Auto) (1.4-6.5) K/uL Lymph # (Auto) (1.2-3.4) K/uL Coffey # (Auto) (0.11-0.59) K/uL Eos # (Auto) (0-0.5) K/uL Baso # (Auto) (0-0.2) K/uL Immature Gran # (Auto) (0.00-0.02) K/uL RBC Morphology APTT (21.0-31.0) Seconds PTT Ratio Sodium (136-145) mmol/L Potassium (3.5-5.1) mmol/L Chloride (98-107) mmol/L Carbon Dioxide (21-32) mmol/L Anion Gap (3-11) BUN (7-18) mg/dl Creatinine (0.6-1.4) mg/dl Est Cr Clr Drug Dosing ml/min Est GFR ( Amer) Est GFR (Non-Af Amer) BUN/Creatinine Ratio (10-20) Glucose (70-99) mg/dl POC Glucose 128 H 186 H (70-99) mg/dl Calcium (8.5-10.1) mg/dl
[2020-09-06] MEDS: MoRPHine SULFATE CR 15 MG TABCR PO SCH (09:50)
[2020-09-06] MEDS: POLYETHYLENE (MIRALAX) 17 GM PACK PO SCH (09:50)
[2020-09-06] MEDS: FERROUS SULFATE 325 MG TAB PO SCH (09:50)
[2020-09-06] MEDS: MIDODRINE HCL 10 MG TAB PO SCH ×2 (09:51→12:10)
[2020-09-06] MEDS: CYANOCOBALAMIN 500 MCG TABLET (VITAMIN B-12) PO SCH (09:51)
[2020-09-06] MEDS: DOCUSATE SODIUM 100 MG CAP PO SCH (09:57)
[2020-09-06 10:37] LABS: Partial Thromboplastin Ratio 1.8
--- NOTE | 2020-09-06 10:44 | XRay Report ---
KUB CLINICAL HISTORY: Follow-up colonic obstruction. Stent placement. Assess stool burden. FINDINGS: 3 AP supine abdominal radiographs are compared to study dated 09/03/2020 and correlated with abdominal CT dated 08/29/2020. There is no radiographic evidence of bowel obstruction. A colonic sten t is unchanged in position and projects over the left lower quadrant. Moderate fecal retention is not ed in the right colon. No evidence of intraperitoneal free air is seen on these supine views. A calci fied gallstone is seen in the right upper quadrant. The skeletal structures appear osteopenic and are intact as imaged. IMPRESSION: 1. There is no bowel obstruction. 2. A colonic stent is unchanged in position. 3. Moderate fecal retention is noted in the right colon. 4. Cholelithiasis. Electronically signed by: Alton Gutierrez M.D. 09/06/2020 10:43 AM
[2020-09-06 10:48] LABS: Partial Thromboplastin Time 46.1 Seconds (21.0-31.0)
[2020-09-06] MEDS: HEPARIN SODIUM/DEXTROSE 25,000 UNITS/500 ML BAG IV SCH (11:44)
[2020-09-06] MEDS ORDERED: ENOXAPARIN 80 MG/0.8 ML SYR SQ SCH (12:00)
--- NOTE | 2020-09-06 12:01 | Hospitalist Progress Note ---
Date of Service September 06, 2020 Assessment & Plan (1) Fever: Fever: Pancytopenia due to chemo Was on neutropenic precautions Possible pneumonia and mucus plugging on CAT scan Received cefepime abx changed to Doxycycline -completed 7 days tx Possible due to pyelonephritis Urine culture negative Received intravenous Zosyn Colonic obstruction Abdominal pain /Nausea secondary to Colonic Partial Bowel Obstruction pain in localized to lower abdomen S/P colonoscopy w repeat colonic stent placement on 08/30. He is passing liquid stools and little flatus. Abd soft, non tender. Repeat KUB:09/06-there is no bowel obstruction Appreciate GI input and recommendation Diet advanced to soft diet Will discharge home this afternoon LLE DVT Thrombocytopenia -- Acute -- discussed with Dr. Meraz Heparin drip low dose, no bolus monitor Plt, Hg has history of hematochezia, monitor for bleeding, hemoglobin stable so far Transition to Lovenox upon discharge Discussed with Dr. 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 Deep venous thrombosis prophylaxis: Currently on heparin drip in light of thrombocytopenia encouraged to ambulated Disposition : PT/OT eval requested lives at home with Daughter and son in law , able to provide care round the clock will benefit with home health and home PT on discharge Likely discharge home this afternoon Admission and Anticipated Discharge Date Admission Date: August 25, 2020 Subjective 09/06/2020 The patient was seen and examined in medical telemetry unit He has been feeling a lot better but remains generally weak and lethargic He has had physical therapy done about a week ago and will need need to have repeat therapy today before he can be discharged Has been tolerating diet denies any obstructive symptoms Review of Systems Review of Systems: All systems reviewed and are unremarkable except as noted below Physical Exam Physical Exam: Lying in bed comfortably Constitutional: + ill appearing and + thin; no acute distress Eyes: PERRL, conjunctivae normal, anicteric sclerae ENMT: external ear and nose normal, oropharynx normal Neck: trachea midline, no thyromegaly Respiratory: no respiratory distress Auscultation: lungs clear to auscultation bilaterally Cardiovascular: Rate/Rhythm: regular rate and regular rhythm Heart Sounds: no murmur Extremities: + edema (1+ edema bilaterally) Gastrointestinal (Abdomen): Inspection/Auscultation: + abdomen distended and normal bowel sounds Percussion/Palpation: abdomen soft; abdomen nontender Musculoskeletal: No acute arthritis in any joint Neurologic: Alert, awake and oriented x3. Generally weak Psychiatric: A+Ox3, euthymic affect Lymphatic: no cervical or axillary lymphadenopathy Results & Data Results & Data ([facility]) Vital Signs (Past 12 Hours) Vital Signs Temp Pulse Pulse Resp BP Pulse Ox 09/06/20 11:14 36.2 C L 67 18 106/72 97 09/06/20 07:58 36.3 C L 77 18 99/64 L 97 09/06/20 07:29 66 09/06/20 03:08 36.2 C L 69 18 95/58 L 98 Laboratory Results Short CBC 09/06/20 Range/Units 03:33 WBC 2.11 L (4.8-10.8) K/uL Hgb 7.9 L (14.0-18.0) g/dL Hct 25.1 L (42-52) % Plt Count 55 L (130-400) K/uL BMP 09/06/20 03:33 Sodium 142 Potassium 4.2 Chloride 109 H Carbon Dioxide 30 BUN 17 Creatinine 0.60 Glucose 116 H Calcium 8.0 L Medications Administered Current Inpatient Medications Acetaminophen (Acetaminophen 325 Mg Tab) 650 mg PO Q4H PRN PRN Reason: Pain or Fever Stop: 09/24/20 23:39 Last Admin: 08/28/20 16:56 Dose: 650 mg Documented by: Cyanocobalamin (Cyanocobalamin 500 Mcg Tablet (Vitamin B-12)) 500 mcg PO QAM [facility] Stop: 09/25/20 08:59 Last Admin: 09/06/20 09:51 Dose: 500 mcg Documented by: Dextrose (Dextrose 50% 50 Ml Syringe) 25 - 50 ml IV UD PRN; Protocol PRN Reason: Hypoglycemia Protocol Stop: 09/24/20 23:44 Docusate Sodium (Docusate Sodium 100 Mg Cap) 100 mg PO BID [facility] Stop: 09/28/20 20:59 Last Admin: 09/06/20 09:57 Dose: 100 mg Documented by: Enoxaparin Sodium (Enoxaparin 80 Mg/0.8 Ml Syr) 80 mg SQ Q24H [facility]IS Stop: 10/06/20 11:59 Ferrous Sulfate (Ferrous Sulfate 325 Mg Tab) 325 mg PO BID LUIS Stop: 09/25/20 08:59 Last Admin: 09/06/20 09:50 Dose: 325 mg Documented by: Glucagon (Glucagon For Inj 1 Mg Vial) 1 mg SQ UD PRN; Protocol PRN Reason: Hypoglycemia Protocol Stop: 09/24/20 23:44 Glucose (Glucose 40% Gel 15 Gm Tube) 15 - 30 gm PO UD PRN; Protocol PRN Reason: Hypoglycemia Protocol Stop: 09/24/20 23:44 Glucose (Glucose 10 Tabs/Tube) 4 - 8 tabs PO UD PRN; Protocol PRN Reason: Hypoglycemia Protocol Stop: 09/24/20 23:44 Heparin Sodium (Porcine) (Heparin 100 Unit/Ml 5ml Flush) 5 ml FLUSH PRN PRN PRN Reason: Flush Stop: 09/25/20 01:01 Last Admin: 08/29/20 06:25 Dose: 3 ml Documented by: Hyoscyamine (Hyoscyamine Sulfate 0.125 Mg Tab) 0.125 mg PO Q6H PRN PRN Reason: Cramping Stop: 09/24/20 23:39 Last Admin: 08/29/20 11:15 Dose: 0.125 mg Documented by: Prochlorperazine 5 mg/ Syringe 5 mls @ 5 mls/min IV Q6H PRN PRN Reason: Nausea And Vomiting Stop: 09/29/20 11:13 Last Admin: 08/30/20 19:19 Dose: 5 mls/min Documented by: Midodrine (Midodrine Hcl 10 Mg Tab) 10 mg PO TID@0800,1200,1700 [facility] Stop: 09/27/20 16:59 Last Admin: 09/06/20 09:51 Dose: 10 mg Documented by: Mirtazapine (Mirtazapine Tab 15 Mg Tab) 15 mg PO HS [facility]IS Stop: 09/25/20 20:59 Last Admin: 09/05/20 20:43 Dose: 15 mg Documented by: Miscellaneous (Carbohydrates For Hypoglycemia ) 15 - 30 gm PO UD PRN PRN Reason: Hypoglycemia Treatment Stop: 09/24/20 23:44 Last Admin: 09/02/20 17:00 Dose: 15 gm Documented by: Morphine Sulfate (Morphine Sulfate 4 Mg/Ml 1 Ml Carp\Vial) 4 mg IV Q3H PRN PRN Reason: pain Stop: 09/12/20 18:44 Last Admin: 09/01/20 05:48 Dose: 4 mg Documented by: Morphine Sulfate (Morphine Sulfate Cr 15 Mg Tabcr) 15 mg PO Q12H LUIS Stop: 09/15/20 20:59 Last Admin: 09/06/20 09:50 Dose: 15 mg Documented by: Nitroglycerin (Nitroglycerin Sl 0.4 Mg/Tab Tab) 0.4 mg SL UD PRN PRN Reason: Chest Pain Stop: 09/24/20 23:39 Ondansetron HCl (Ondansetron Inj 2 Mg/Ml 2 Ml Vial) 4 mg IV Q6H PRN PRN Reason: Nausea Stop: 09/24/20 23:39 Last Admin: 08/30/20 14:57 Dose: 4 mg Documented by: Oxycodone/Acetaminophen (Oxycodone/Acetaminophen 5mg/325mg Tab) 1 tab PO Q6 PRN PRN Reason: Pain-Mild/Moderate Stop: 09/08/20 23:39 Last Admin: 08/29/20 17:33 Dose: 1 tab Documented by: Polyethylene Glycol (Polyethylene (Miralax) 17 Gm Pack) 17 gm PO DAILY PRN PRN Reason: Constipation Stop: 09/28/20 17:42 Polyethylene Glycol (Polyethylene (Miralax) 17 Gm Pack) 17 gm PO DAILY LUIS Stop: 09/30/20 10:59 Last Admin: 09/06/20 09:50 Dose: 17 gm Documented by: Prochlorperazine (Prochlorperazine Maleate 10 Mg Tab) 10 mg PO Q6H PRN PRN Reason: Nausea Stop: 09/24/20 23:39 Last Admin: 08/29/20 17:51 Dose: 10 mg Documented by:
[2020-09-06] MEDS: HEPARIN 100 UNIT/ML 5ML FLUSH FLUSH PRN (15:44)
--- NOTE | 2020-09-07 07:34 | Discharge Summary ---
Date of Service September 07, 2020 Admission HPI Per Admitting Provider DICTATED BY: Joshua Hernandez MD DATE OF ADMISSION: 08/25/2020 CHIEF COMPLAINT: Not feeling well, fever. 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 The patient lives with daughter. Comes here because of fever, temperature 101 degrees at home and some nausea and some abdominal discomfort. His urine was yellow, denies any burning micturition, no hematuria. Somewhat constipated. Has some mild headache. No blurred vision, no earache, no runny nose, no sore throat, no loss of sense of smell or taste. No dysphagia. Appetite is not that great. No chest pain, no shortness of breath. Ambulates with the help of walker at home. No rash. Blood pressure was on the lower side when he came in the 90s. He had a temperature spike of 37.6 in the ER. Generally, his blood pressure runs in low 100s. Saturating fine on room air. Admission Exam Per Admitting Provider GENERAL: The patient is of moderate built, not in acute distress. VITAL SIGNS: Temperature 37.6, pulse 85, respiratory rate 18, blood pressure 95/60, oxygen 97% on room air. HEENT: Pupils are equal, round, and reactive to light. Oral mucosa moist. NECK: No neck masses. CARDIOVASCULAR: S1, S2 heard. Regular rate and rhythm. No murmur, no gallop. RESPIRATORY SYSTEM: Normal AP diameter. No accessory muscle use. No wheezing, no crackles. ABDOMEN: Soft, bowel sounds present. Mild diffuse abdominal discomfort. No guarding, no rigidity, no distention. CENTRAL NERVOUS SYSTEM: Cranial nerves II-XII grossly intact, nonfocal. EXTREMITIES: No edema, no erythema. Principal Diagnosis FEVER PNEUMONIA HYPOTENSION METASTATIC COLON CA ( METASTASIZED TO INTRATHORACIC LYMPH NODE ) /ON CHEMO PANCYTOPENIA DUE TO CHEMO Discharge Exam Constitutional + ill appearing and + thin; no acute distress Eyes PERRL, conjunctivae normal, anicteric sclerae ENMT external ear and nose normal, oropharynx normal Neck trachea midline, no thyromegaly Respiratory no respiratory distress Auscultation: lungs clear to auscultation bilaterally Cardiovascular Rate/Rhythm: regular rate and regular rhythm Heart Sounds: no murmur Extremities: + edema (1+ edema bilaterally) Gastrointestinal (Abdomen) Inspection/Auscultation: + abdomen distended and normal bowel sounds Percussion/Palpation: abdomen soft; abdomen nontender Psychiatric A+Ox3, euthymic affect Lymphatic no cervical or axillary lymphadenopathy Discharge Data Allergies Allergy/AdvReac Type Severity Reaction Status Date / Time No Known Allergies Allergy Verified 08/25/20 19:38 Consultations 08/25/20 20:41 ED Decision to Admit Stat 08/25/20 23:40 Consult Case Management - Discharge Planning Routine 08/26/20 08:00 Consult Urology Routine 08/29/20 18:42 Consult General Surgery Routine 08/29/20 19:01 Consult Gastroenterology Routine Procedures Performed Operation Date: 08/30/20 12:35 Actual Procedures p Colonoscopy with Stent in Operating Room(Not Applicable) - Lexa Adame DO Ordered Studies 08/25/20 18:56 CT abd pelvis IV con only Stat 08/25/20 22:29 CT chest diagnostic wo con Urgent 08/29/20 17:48 CT abd pelvis IV con only Routine 08/30/20 11:30 FL KUB Routine 08/30/20 11:31 FL fluoroscopy <1hr Routine 09/03/20 11:22 US venous doppler [facility] Routine Hospital Course (1) Fever: (1) Fever: Abdominal pain /Nausea secondary to Colonic Partial Bowel Obstruction pain in localized to lower abdomen s/p Colonoscopy: (+) tumor growth over old stent new stent placed -- repeat KUB: 1. There are now 2 overlapping colonic stents with the left side of the colon. 2. No change in the distended and stool-filled large bowel proximal to the stent. -- diet advanced to soft diet d/c IV fluids still with no BM, repeat KUB still showing colonic distention will re-consult GI monitor closely continue Zosyn Possible due to pyelonephritis /Pneumonia -- Urine culture negative completed 7 days of Doxycycline for possible PNA LLE DVT -- Acute -- discussed with Dr. Meraz Heparin drip low dose, no bolus monitor Plt, Hg has history of hematochezia, monitor Hypotension resolved no orthostatic BP change doubt dehydration as pt received multiple IV fluid bolus , iV fluid resuscitation during this admission started on Midodrine 5 mg tid , dose increased to 10mg TID , sbp has been in low 100's since no symptoms of dizzy spell or lightheadedness Colon ca on Chemo : Metastatic colon cancer stage IV: Follows with hematology/oncology, had last chemo the week before admission follow up with heme onc in clinic Pancytopenia : due to chemo neutropenic precautions improving continue to monitor CBC Pneumonia: Per Dr. 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 Full code Deep venous thrombosis prophylaxis: Sequential compression devices/thrombocytopenia in light of thrombocytopenia encouraged to ambulated Disposition : PT/OT eval requested lives at home with Daughter and son in law , able to provide care round the clock will benefit with home health and home PT on discharge plan of care discussed with patient in detail all questions answered he is understanding, agreeable, comfortable with the plan of care Total Time Total Time Spent Total Time Spent (In Minutes): 40 minutes Total Time Includes: Examination of the Patient, Discharge Planning, Medication Reconciliation and Communication With Other Providers Discharge Plan Discharge Items Patient Disposition: Home - Home Health Services Reason For Visit: ILLNESS, FEVER Discharge Diagnosis: FEVER PNEUMONIA HYPOTENSION METASTATIC COLON CA ( METASTASIZED TO INTRATHORACIC LYMPH NODE ) /ON CHEMO PANCYTOPENIA DUE TO CHEMO Activity: Resume your previous activity Non-emergency contact: Primary Care Provider Call non-emergency contact if: you have any medication questions Follow-up/Referrals: Duong Matt MD [Primary Care Provider] - (Date & Time 09/11/2020 3:00 PM Provider Duong Matt MD Department Internal Medicine [facility] ) Diet: Regular Addtl Attending Provider Instructions: Please take all medications as instructed on discharge list below. It is recommended that you follow-up with your primary care physician within 1-2 weeks of hospital discharge to ensure you are still doing well. Please call if you have any questions or problems. You can reach a [facility] hospitalist on duty at [facility] 24 hours a day by calling [phone] You need to have follow-up with coagulation clinic Pending Studies at Discharge: No Stand-Alone Forms: My [facility], Smoking Cessation Medications and DC Order Prescriptions: New midodrine 10 mg Tablet 10 mg PO TID@0800,1200,1700 30 Days Qty: 90 RF: 3 enoxaparin [Lovenox] 80 mg/0.8 mL syringe 80 mg subcut DAILY 30 Days Qty: 24 RF: 0 Continued pioglitazone [Actos] 30 mg Tablet 30 mg PO QAM RF: 0 Jardiance 10 mg tablet 10 mg PO QAM RF: 0 prochlorperazine maleate [Compazine] 10 mg tablet 10 mg PO Q6H PRN (Reason: Nausea) RF: 0 oxycodone-acetaminophen 5-325 mg Tablet 1 tab PO Q6 PRN (Reason: Pain-Mild/Moderate) RF: 0 mirtazapine 15 mg tablet 15 mg PO HS RF: 0 ferrous sulfate 325 mg (65 mg iron) Tablet 325 mg PO BID RF: 0 diphenoxylate-atropine 2.5-0.025 mg tablet 1 tab PO QID PRN (Reason: Diarrhea) RF: 0 hyoscyamine sulfate [Levsin] 0.125 mg tablet 0.125 mg PO Q6H PRN (Reason: Cramping) RF: 0 cyanocobalamin (vitamin B-12) [Vitamin B-12] 500 mcg Tablet 500 mcg PO QAM RF: 0 morphine 15 mg tablet extended release 15 mg PO Q12H RF: 0 ondansetron HCl 8 mg tablet 8 mg PO Q8H PRN (Reason: Nausea And Vomiting) RF: 0 Discontinued spironolactone 50 mg tablet 50 mg PO DAILY RF: 0 Discharge Orders: Discharge Order (Routine); Ordered 09/06/20 Ordered By: Natalya Ellington Admission Data Admit Date/Time: 08/25/20 22:16 Attending Provider: Natalya Ellington Admit Provider: Joshua Hernandez Primary Care Provider: Duong Matt Other Providers: Haydee Leyva ; Joshua Hernandez ; George Bhandari ; Robin Marques ; [place] ; Dayana Hurtado ; Jessie Schwartz ; Bib Wilson ; Cari Gomez,Angelica A. ; Angi Montes ; Simon Wall ; Sakshi Maharaj ; Trinidad Toro ; Bonilla Miguel ; Babita Vickers ; Clary Adame ; Dieudonne Diaz ; Christopher Mednez ; Tiesha Reddy ; Sherrie Mallory ; Michael Austin Jr ; Mack Everett ; Joss Hurst ; Sowmya Clark ; Leanne Montes ; Sherrie James ; Samm Huitron ; Angelic Zabala ; Humberto Hawley ; Lexa Adame ; Pricila Lu ; Heladio Nelson ; Mykel Coulter ; Ceci Patrick ; Corrina Cunningham ; Silvia Verde ; Sowmya James ; Dillon Wong ; River Kelly Other Interventions: Discharge Summary Assessment (RN) Last Done: 09/06/20 15:47
== END 2020-09-06 16:50 | disposition home health service (06) ==
LOC: ED 18:35 → 2S 22:16 → SUATTDRO 22:16 → 2S 22:38 → 2N 08-28 14:25 → 2W 08-30 16:13

== ENCOUNTER 2020-09-25 17:37 | Inpatient (IN) ==
[2020-09-25 18:27] LABS: Basophils # (auto) 0.01 K/uL (0-0.2); Basophils % (auto) 0.3 %; Eosinophils # (auto) 0.02 K/uL (0-0.5); Eosinophils % (auto) 0.6 %; Hematocrit (blood only) 26.4 % (42-52); Hemoglobin 8.5 g/dL (14.0-18.0); Immature Granulocytes # (auto) 0.03 K/uL (0.00-0.02); Immature Granulocytes % (auto) 0.9 %; Lymphocytes # (auto) 0.69 K/uL (1.2-3.4); Lymphocytes % (auto) 20.8 %; Mean Corpuscular Hemoglobin 29.7 pg (25-34); Mean Corpuscular Hgb Conc 32.2 g/dL (32-36); Mean Corpuscular Volume 92.3 fL (80-100); Mean Platelet Volume 9.5 fL (7.4-10.4); Monocytes # (auto) 0.19 K/uL (0.11-0.59); Monocytes % (auto) 5.7 %; Neutrophils # (auto) 2.38 K/uL (1.4-6.5); Neutrophils % (auto) 71.7 %; Platelet Count 109 K/uL (130-400); RDW Coefficient of Variation 15.9 % (11.5-14.5); RDW Standard Deviation 54.3 fL (36.4-46.3); Red Blood Count 2.86 M/uL (4.7-6.1); White Blood Count 3.32 K/uL (4.8-10.8)
[2020-09-25 18:44] LABS: Albumin Level 2.7 gm/dl (3.4-5.0); BUN Creatinine Ratio 18.6 (10-20); Calcium 8.4 mg/dl (8.5-10.1); Creatinine Clr Calc Pharmacy 115.2 ml/min; Est GFR (African American) 124.9; Est GFR (Non-African American) 107.8
[2020-09-25 18:46] LABS: Albumin Globulin Ratio 0.7 (0.9-2); Bilirubin,Total 0.3 mg/dl (0.2-1); Globulin 3.9 gm/dl (2.5-4.0); Total Protein 6.6 gm/dl (6.4-8.2)
--- NOTE | 2020-09-25 19:04 | XRay Report ---
XR chest 1V portable HISTORY: 60 years-old Male Fever acute fever COMPARISON: Chest CT and chest radiograph 08/25/2020 TECHNIQUE: Portable AP view the chest FINDINGS: Cardiac mediastinal and hilar silhouettes are unchanged. Left subclavian [id number] catheter is st able. No pneumothorax, pleural effusion, airspace consolidation or overt pulmonary edema. Previously noted suspicious bibasilar pulmonary nodules are better appreciated on comparison chest CT. Minimal l eft lung base densities suggest atelectasis, improved from comparison. Bones of the chest appear rubio sly intact. IMPRESSION: 1. No acute process. 2. Left basilar pulmonary nodules are better characterized on comparison chest CT. ACT 112: Negative or not required by law. The above report was generated using voice recognition software. It may contain grammatical, syntax o r spelling errors. Electronically signed by: Nahum Higgins M.D. 09/25/2020 7:03 PM
[2020-09-25] MEDS ORDERED: SODIUM CHLORIDE 0.9% 1000ML 1,000 ML IV ONE (19:16)
[2020-09-25] MEDS ORDERED: ACETAMINOPHEN 1,000 MG/100 ML VIAL IV STA (19:16)
[2020-09-25] MEDS ORDERED: DAPTOmycin 400 MG in SYRINGE 0 ML IV ONE (19:16)
[2020-09-25] MEDS ORDERED: CEFEPIME 2,000 MG/20 ML VIAL IV STA (19:16)
--- NOTE | 2020-09-25 19:21 | Emergency Department Note ---
Impression & Plan Fever, Acute hypotension, Abdominal pain, Colon cancer ED Provider Note NAME: VISHAL LEO AGE: 60 SEX: M : 1960 ARRIVES VIA: Walk-In INFORMANT: Patient, ED PROVIDER(S): John Doll MD CHIEF COMPLAINT: chills HPI: This is a 60-year-old male who presents emergency department complaining of severe shaking. The patient reports he began shaking violently. The patient's daughter reports he has been sick for at least 2 days. He had chemotherapy last week. His oncologist is Dr. Meraz. He is also complaining of abdominal pain made worse with any movement however rest makes the abdominal pain better. He denies any nausea or vomiting. He last took Tylenol this morning which she thought made everything better. ROS: See above HPI for pertinent positives & negatives. A total of 10 systems reviewed and were otherwise negative. PAST MEDICAL HISTORY: See Below PAST SURGICAL HISTORY: See Below FAMILY HISTORY: See Below SOCIAL HISTORY: See Below HOME MEDICATIONS: See Below ALLERGIES: See Below VITALS: See Below PHYSICAL EXAMINATION: VITAL SIGNS - Vital signs and nursing notes were reviewed. GENERAL - 60-year-old male appearing stated age who is moderate distress. Shaking on exam SKIN - Without rashes. HEAD - NC/AT. EYES - PERRL with EOMI bilaterally. Sclera anicteric. Palpebral conjunctiva pink and moist with no injection noted. EARS - No deformities of external structures noted on gross examination bilaterally. NOSE - Midline and without cyanosis. No epistaxis or purulent drainage noted. Septum midline without deviation or septal hematoma noted. MOUTH/OROPHARYNX - Without perioral cyanosis. Buccal mucosa pink and moist and without leukoplakia. Tongue midline with equal elevation of palate bilaterally. No tonsillar hypertrophy, erythema, or exudates noted. dentition noted. NECK - Neck with FROM. Supple to palpation. lymphadenopathy noted. No nuchal rigidity. LUNGS - Chest wall symmetric without accessory muscle use, intercostals retractions, or central cyanosis. Normal vesicular breath sounds CTA B/L. No wheezes, rales, or rhonchi appreciated. CARDIAC - RRR with S1/S2. No murmur, rubs, or gallops appreciated. ABDOMEN - Abdominal contour without pulsations or visible masses. BS normoactive all four quadrants. No tenderness, palpable masses, hepatosplenomegaly, or ascites noted. EXTREMITIES - No clubbing or peripheral cyanosis. No pretibial edema present. +3/5 radial, posterior tibial, and dorsalis pedis pulses palpated throughout. +5/5 strength noted in UE/LE bilaterally. NEUROLOGIC - Cranial nerves II through XII grossly intact. Sensory intact to light touch throughout. Patellar reflexes +2/4. PSYCH - A&Ox3 and cooperates fully with examiner. Pt is very pleasant and interacts well with examiner. MEDICAL DECISION MAKING: Patient was seen and evaluated as above in room B7. Review was performed of nurs ing notes and vital signs. I did review pertinent previous visits and patient history. After obtaining a thorough history and physical examination the above work up was performed. This 60-year-old male who presents emergency department with severe rigors. The patient is currently on chemotherapy. His hemoglobin was found to be 8.5 therefore he was typed and screened. He was started on broad-spectrum antibiotics including Cefepime and daptomycin. His white blood cell count was found to be 3. Patient was given Tylenol as well as Dilaudid. He was sent for CAT scan of the abdomen pelvis. He was started on broad-spectrum antibiotics I did discuss the case with the hospitalist service who did agree to meet the patient. An order was placed for continuous cardiac monitoring. The monitor shows a rate of 108 with Normal Sinus rhythm. The patient was evaluated during a period of high volume and high acuity during the global COVID-19 pandemic, and that diagnosis was suspected/considered upon their initial presentation. Their evaluation, treatment and testing was consistent with current guidelines for patients who present with complaints or symptoms that may be related to COVID-19. Patient was seen while provider was wearing PPE. Triage Nursing notes reviewed. Prior medical records reviewed Vital Signs: reviewed and remarkable for no significant abnormalities Differential diagnosis: Sepsis, UTI, pneumonia, metabolic, electrolyte abnormalities, cardiac sources, intracerebral event, toxicologic, neurologic, as well as other pathologies. ER treatment provided: See below Diagnostics interpreted by me: ECG: EKG shows a normal sinus rhythm normal EKG no ST elevation or depression when compared to the EKG of 08/25/2020 there is no significant change. Ventric ular rate is 78 QTC is 410 Laboratory studies: [As stated above and show below.] Imaging studies: [facility], [phone] CT Scan Report Patient: VISHAL LEO Date: 09/25/20#: [id number]: 119 MCLAIN LNAcct ID:[id number]: [facility] 1960[facility] [place], [place] [address]Ruf: 60Location: EDSex: MRoom/Bed:Att Phy:Diagnosis: FEVER, NAUSEA, ABDOMINAL PAINPri Phy: Duong Matt MDService Date: 09/25/20Fa Phy:Interpreting Phy: Cornel HigginsAdmit Phy: Ordering Phy: John Doll MD cc: ~ ABDOMEN AND PELVIS CT WITH IV CONTRAST CT DOSE: 489.10 mGy.cm HISTORY: Acute generalized abdominal pain with concern for bowel obstruction. History of colon cancer. Pt c/o abd pain, hx of colon obstruction TECHNIQUE: Multiaxial CT images of the abdomen and pelvis were performed following the IV administration of 91 cc of Optiray 320, A dose lowering technique was utilized adhering to the principles of ALARA. COMPARISON STUDY: CT abdomen pelvis 08/29/2020. FINDINGS: Bibasilar pulmonary nodules are redemonstrated. 9 mm solid nodule of the right middle lobe previously measured 7 mm. Conglomerate nodule of the left lower lobe measuring 3.1 cm on image 12 previously measured 2.5 cm. No pneumatosis or pneumoperitoneum. Cardiomegaly with coronary artery calcifications. The spleen is enlarged measuring 17.6 cm. Mild to moderate generalized pancreatic atrophy. Unremarkable adrenal glands. Cholelithiasis with gallbladder wall thickening is similar to comparison. Periportal edema. No hepatic metastasis identified. There are 2 nonobstructing calculi noted within the left kidney measuring up to 8 mm. Mildly atrophic left kidney with cortical thinning. Unchanged probable cyst of the interpolar left kidney, 12 mm. No hydronephrosis. Calcifications of the central prostate. Urinary bladder wall thickening with partial distention. No abdominal aortic aneurysm. Pathologically enlarged retroperitoneal lymph nodes also increased in size from comparison. Index lymph node on image 240 series 3 within the left iliac chain measures 1.5 cm in short axis, previously 1.1 cm. Pathologic iliac chain lymph nodes are also present. Small hiatal hernia with distal esophageal wall thickening. Diffuse mesenteric and body wall edema. Unchanged positioning of the colonic stent at the descending sigmoid junction with decreased amount of upstream colonic distention. Wall thickening of the distal descending colon, sigmoid and rectum with pericolonic stranding. Moderate fecal retention. Normal appendix. No small bowel obstruction. No acute fracture. There are no new bone lesions. With upstream IMPRESSION: 1. Stable positioning of the colonic stent located at the descending sigmoid junction. There is persistent narrowing of the colon at the level of the stent however there is a decreased amount of upstream colonic distention. 2. Wall thickening of the distal descending colon, sigmoid and rectum is s uggestive of a nonspecific proctocolitis. 3. No bowel obstruction or pneumoperitoneum. 4. Normal appendix. 5. Progressive metastatic disease manifested by increased size of the pulmonary nodules with increased size of numerous abdominal lymph nodes. 6. Splenomegaly. 7. Cholelithiasis with unchanged gallbladder wall thickening. 8. Nonobstructing left nephrolithiasis. 9. Additional findings as above. ACT 112: Negative or not required by law. The above report was generated using voice recognition software. It may contain grammatical, syntax or spelling errors. Electronically signed by: Nahum Higgins M.D. 09/25/2020 9:10 PM Dictated: 09/25/202058Transcribed: 09/25/202058 [place], [place] [phone] XRay Report Patient: VISHAL LEO Admit Date: 09/25/20 MR#: [id number] Address1: [address] [place] [address] Acct ID:[id number] Address2: Date: 1960 [facility] Zip: [place] [address] Age: 60 Location: ED Sex: M Room/Bed: Att Phy: Diagnosis: FEVER, NAUSEA, ABDOMINAL PAIN Amber Phy: Duong Matt MD Service Date: 09/25/20 [facility] Phy: Interpreting Phy: Cornel Higgins Admit Phy: Ordering Phy: RENETTA,ED cc: ~ XR chest 1V portable HISTORY: 60 years-old Male Fever acute fever COMPARISON: Chest CT and chest radiograph 08/25/2020 TECHNIQUE: Portable AP view the chest FINDINGS: Cardiac mediastinal and hilar silhouettes are unchanged. Left subclavian [id number] catheter is stable. No pneumothorax, pleural effusion, airspace consolidation or overt pulmonary edema. Previously noted suspicious bibasilar pu lmonary nodules are better appreciated on comparison chest CT. Minimal left lung base densities suggest atelectasis, improved from comparison. Bones of the chest appear grossly intact. IMPRESSION: 1. No acute process. 2. Left basilar pulmonary nodules are better characterized on comparison chest C T. ACT 112: Negative or not required by law. The above report was generated using voice recognition software. It may contain grammatical, syntax or spelling errors. Electronically signed by: Nahum Higgins M.D. 09/25/2020 7:03 PM Dictated: 09/25/201900 Transcribed: 09/25/201900 Consultation(s): Internal medicine [PDMP:reviewed and no issues] Critical Care: I have personally spent greater than 30 minutes of critical care time in the direct management of this patient. This includes bedside care, interpretation of diagnostic studies, and testing, discussion with consultants, patient, and family members, and other required patient management activities. This 30 minutes is in excess of all separately billable procedures. Past Med/Surg History Medical History (Updated 09/28/20 @ 14:40 by John Doll MD) Acute lower GI bleeding Anxiety C. difficile colitis hx ~2017. 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 Depression Diverticulitis of colon with perforation NO SURGERY DM type 2 (diabetes mellitus, type 2) Dyslipidemia Immunocompromised Kidney stones Obesity Osteoarthritis Pancytopenia Follows with heme Splenomegaly r/t chemotherapy Surgical History History of colonoscopy History of cystoscopy STONE REMOVAL WITH STENT PLACED History of esophagogastroduodenoscopy (EGD) History of tooth extraction History of vascular access device RIGHT UPPER CHEST PLACED 09/2018 Hx of hernia repair Hx of tonsillectomy Family History Mother , Age 62 Breast cancer Father , Age 62 Stroke Sister Family history of diabetes mellitus Brother Family history of diabetes mellitus Brother Family history of diabetes mellitus Other No family history of adverse response to anesthesia Social History Smoking Status: Former smoker Tobacco Type: Cigarettes Second Hand Exposure: No; Do You Dip or Chew Tobacco: No; Tobacco Cessation Education Requested by Patient: No Hx Alcohol Use: No Hx Substance Use: No Preferred Language: Mongolian Communication Ability: Effective Visual Impairment: No Limitations Director Of Primary Care Required: No Beliefs That Will Affect Care: None marital status: Current Living Situation: Family Current Living Situation Comment: dtr How many Children do You have: 1 Other Information That Helps Us Care for You: No Feels Safe at Home: Yes Safety Concerns: Feels Safe At This Time Assistive Devices: None Allergies Allergies Allergy/AdvReac Type Severity Reaction Status Date / Time No Known Allergies Allergy Verified 09/25/20 21:02 Home Meds Home Medications Medication Instructions Recorded Confirmed pioglitazone [Actos] 30 mg PO QAM 04/18/18 09/25/20 ferrous sulfate 325 mg PO BID 10/02/18 09/25/20 oxycodone-acetaminophen 1 tab PO Q6 PRN 12/27/19 09/25/20 prochlorperazine maleate 10 mg PO AMHS PRN 12/27/19 09/25/20 [Compazine] cyanocobalamin (vitamin B-12) 500 mcg PO QAM 02/11/20 09/25/20 [Vitamin B-12] diphenoxylate-atropine 1 tab PO QID PRN 02/11/20 09/25/20 hyoscyamine sulfate [Levsin] 0.125 mg PO Q6H PRN 02/11/20 09/25/20 morphine 15 mg PO Q12H 04/01/20 09/25/20 ondansetron HCl 8 mg PO Q8H PRN 05/06/20 09/25/20 mirtazapine 15 mg PO HS 06/23/20 09/25/20 docusate sodium [Colace] 100 mg PO BID 09/25/20 09/25/20 magnesium hydroxide [Milk of 30 ml PO HS 09/25/20 09/25/20 Magnesia] sennosides [senna] 8.6 mg PO DAILY 09/25/20 09/25/20 Previous Rx's Medication Instructions Recorded midodrine 10 mg PO TID@0800,1200,1700 30 08/29/20 Days #90 tab enoxaparin [Lovenox] 80 mg SUBCUT DAILY 30 Days #24 ml 09/06/20 Results & Data (ED) Vital Signs Vital Signs - 24 hr 09/25/20 17:50 09/25/20 19:08 Temperature 37.4 C 39.4 C H Temperature Source Temporal Artery Scan Oral Pulse Rate 95 H Pulse Rate [Finger] 108 H Respiratory Rate 18 24 Respiratory Depth Normal Blood Pressure 115/75 Blood Pressure [Right Arm] 139/96 Blood Pressure Mean 88 Blood Pressure Mean [Right Arm] 110 Pulse Oximetry 98 100 Oxygen Delivery Method Room Air Room Air Sepsis Recent Fever Within 48 Hours Yes Sepsis New/Unexplained Change in Mental Status No Sepsis Action Taken by Nursing No Action Required Laboratory Data Result diagrams: 09/28/20 06:45 09/28/20 06:45 Lab Results 09/25/20 09/25/20 Range/Units 18:14 18:14 WBC 3.32 L (4.8-10.8) K/uL RBC 2.86 L (4.7-6.1) M/uL Hgb 8.5 L (14.0-18.0) g/dL Hct 26.4 L (42-52) % MCV 92.3 (80-100) fL MCH 29.7 (25-34) pg MCHC 32.2 (32-36) g/dL RDW Std Deviation 54.3 H (36.4-46.3) fL RDW Coeff of Ivette 15.9 H (11.5-14.5) % Plt Count 109 L (130-400) K/uL MPV 9.5 (7.4-10.4) fL Immature Gran % (Auto) 0.9 % Neut % (Auto) 71.7 % Lymph % (Auto) 20.8 % [place] % (Auto) 5.7 % Eos % (Auto) 0.6 % Baso % (Auto) 0.3 % Neut # (Auto) 2.38 (1.4-6.5) K/uL Lymph # (Auto) 0.69 L (1.2-3.4) K/uL [place] # (Auto) 0.19 (0.11-0.59) K/uL Eos # (Auto) 0.02 (0-0.5) K/uL Baso # (Auto) 0.01 (0-0.2) K/uL Immature Gran # (Auto) 0.03 H (0.00-0.02) K/uL Giant Platelets 1+ Sodium 134 L (136-145) mmol/L Potassium 4.0 (3.5-5.1) mmol/L Chloride 102 (98-107) mmol/L Carbon Dioxide 26 (21-32) mmol/L Anion Gap 6.0 (3-11) BUN 11 (7-18) mg/dl Creatinine 0.60 (0.6-1.4) mg/dl Est Cr Clr Drug Dosing 115.2 ml/min Est GFR ( Amer) 124.9 Est GFR (Non-Af Amer) 107.8 BUN/Creatinine Ratio 18.6 (10-20) Glucose 160 H (70-99) mg/dl Calcium 8.4 L (8.5-10.1) mg/dl Total Bilirubin 0.3 (0.2-1) mg/dl AST 18 (15-37) U/L ALT 18 (12-78) U/L Alkaline Phosphatase 114 (45-117) U/L Total Protein 6.6 (6.4-8.2) gm/dl Albumin 2.7 L (3.4-5.0) gm/dl Globulin 3.9 (2.5-4.0) gm/dl Albumin/Globulin Ratio 0.7 L (0.9-2) Administered Medications Cyanocobalamin (Cyanocobalamin 500 Mcg Tablet (Vitamin B-12)) 500 mcg PO QAM [facility] Stop: 10/26/20 08:59 Last Admin: 09/28/20 08:31 Dose: 500 mcg Documented by: [id number] Admin: 09/27/20 09:10 Dose: 500 mcg Documented by: [id number] Admin: 09/26/20 10:06 Dose: 500 mcg Documented by: [id number] Doxycycline Hyclate (Doxycycline Hyclate 100 Mg Cap) 100 mg PO Q12@0700,1900 [facility]; Protocol Stop: 10/02/20 18:59 Last Admin: 09/28/20 12:00 Dose: 100 mg Documented by: [id number] Enoxaparin Sodium (Enoxaparin 80 Mg/0.8 Ml Syr) 80 mg SQ DAILY [facility] Stop: 10/26/20 08:59 Last Admin: 09/28/20 08:30 Dose: 80 mg Documented by: [id number] Admin: 09/27/20 11:45 Dose: 80 mg Documented by: [id number] Admin: 09/26/20 13:27 Dose: Not Given Documented by: [id number] Ferrous Sulfate (Ferrous Sulfate 325 Mg Tab) 325 mg PO BID [facility] Stop: 10/25/20 21:29 Last Admin: 09/28/20 08:31 Dose: 325 mg Documented by: [id number] Admin: 09/27/20 20:51 Dose: 325 mg Documented by: [id number] Admin: 09/27/20 09:11 Dose: 325 mg Documented by: [id number] Admin: 09/26/20 20:51 Dose: 325 mg Documented by: [id number] Admin: 09/26/20 09:55 Dose: 325 mg Documented by: [id number] Admin: 09/26/20 00:58 Dose: 325 mg Documented by: [id number] Potassium Chloride/Sodium Chloride (Normal Saline W/20 Meq Kcl) 20 meq in 1,000 mls @ 100 mls/hr IV .Q10H [facility] Stop: 10/27/20 10:44 Last Infusion: 09/28/20 11:20 Dose: 100 mls/hr Documented by: [id number] Infusion: 09/28/20 08:50 Dose: 0 mls/hr Documented by: [id number] Admin: 09/28/20 06:28 Dose: 100 mls/hr Documented by: [id number] Infusion: 09/28/20 06:28 Dose: 100 mls/hr Documented by: [id number] Admin: 09/27/20 20:51 Dose: 100 mls/hr Documented by: [id number] Infusion: 09/27/20 20:51 Dose: 100 mls/hr Documented by: [id number] Admin: 09/27/20 11:45 Dose: 100 mls/hr Documented by: [id number] Insulin Aspart (Insulin Aspart 100 Units/Ml 3 Ml Pen) 0 units SC ACHS [facility] Stop: 10/25/20 21:29 Last Admin: 09/28/20 11:24 Dose: Not Given Documented by: [id number] Cosigned by: [id number] Admin: 09/28/20 08:28 Dose: Not Given Documented by: [id number] Cosigned by: [id number] Admin: 09/27/20 20:40 Dose: Not Given Documented by: [id number] Cosigned by: [id number] Admin: 09/27/20 16:56 Dose: 1 units Documented by: [id number] Cosigned by: [id number] Admin: 09/27/20 12:42 Dose: 2 units Documented by: [id number] Cosigned by: [id number] Admin: 09/27/20 09:11 Dose: Not Given Documented by: [id number] Cosigned by: [id number] Admin: 09/26/20 20:48 Dose: Not Given Documented by: [id number] Cosigned by: [id number] Admin: 09/26/20 17:30 Dose: Not Given Documented by: [id number] Admin: 09/26/20 11:38 Dose: 1 units Documented by: [id number] Cosigned by: [id number] Admin: 09/26/20 08:45 Dose: Not Given Documented by: [id number] Admin: 09/25/20 23:48 Dose: Not Given Documented by: [id number] Cosigned by: [id number] Insulin Glargine (Insulin Glargine Solostar 100 Units/Ml 3 Ml Pen) 5 units SC BID [facility] Stop: 10/25/20 21:29 Last Admin: 09/28/20 08:30 Dose: 5 units Documented by: [id number] Cosigned by: [id number] Admin: 09/27/20 20:51 Dose: 5 units Documented by: [id number] Cosigned by: [id number] Admin: 09/27/20 09:12 Dose: 5 units Documented by: [id number] Cosigned by: [id number] Admin: 09/26/20 20:47 Dose: 5 units Documented by: [id number] Cosigned by: [id number] Admin: 09/26/20 09:55 Dose: 5 units Documented by: [id number] Cosigned by: [id number] Admin: 09/25/20 23:47 Dose: 5 units Documented by: [id number] Cosigned by: [id number] Midodrine (Midodrine Hcl 10 Mg Tab) 10 mg PO TID@0800,1200,1700 [facility] Stop: 10/26/20 07:59 Last Admin: 09/28/20 12:00 Dose: 10 mg Documented by: [id number] Admin: 09/28/20 08:31 Dose: 10 mg Documented by: [id number] Admin: 09/27/20 16:56 Dose: 10 mg Documented by: [id number] Admin: 09/27/20 12:43 Dose: 10 mg Documented by: [id number] Admin: 09/27/20 09:10 Dose: 10 mg Documented by: [id number] Admin: 09/26/20 16:29 Dose: 10 mg Documented by: [id number] Admin: 09/26/20 12:04 Dose: 10 mg Documented by: [id number] Admin: 09/26/20 09:55 Dose: 10 mg Documented by: [id number] Mirtazapine (Mirtazapine Tab 15 Mg Tab) 15 mg PO HS [facility] Stop: 10/25/20 21:29 Last Admin: 09/27/20 20:51 Dose: 15 mg Documented by: [id number] Admin: 09/26/20 20:51 Dose: 15 mg Documented by: [id number] Admin: 09/26/20 00:58 Dose: 15 mg Documented by: [id number] Morphine Sulfate (Morphine Sulfate Cr 15 Mg Tabcr) 15 mg PO Q12H [facility] Stop: 10/09/20 21:29 Last Admin: 09/28/20 08:49 Dose: 15 mg Documented by: [id number] Admin: 09/27/20 20:51 Dose: 15 mg Documented by: [id number] Admin: 09/27/20 09:12 Dose: 15 mg Documented by: [id number] Admin: 09/26/20 20:51 Dose: 15 mg Documented by: [id number] Admin: 09/26/20 11:32 Dose: 15 mg Documented by: [id number] Admin: 09/26/20 00:52 Dose: Not Given Documented by: [id number] Oxycodone/Acetaminophen (Oxycodone/Acetaminophen 5mg/325mg Tab) 1 tab PO Q6 PRN PRN Reason: Pain-Mild/Moderate Stop: 10/09/20 21:29 Last Admin: 09/27/20 06:19 Dose: 1 tab Documented by: [id number] Discontinued Medications Hydromorphone HCl (Hydromorphone Inj 1 Mg/Ml Syringe) 1 mg IV Q15M PRN PRN Reason: Pain Stop: 10/09/20 19:23 Last Admin: 09/25/20 19:32 Dose: 1 mg Documented by: [id number] Cefepime HCl (Maxipime) 2,000 mg in 20 mls @ 5 mls/min IV NOW STA Stop: 09/25/20 19:19 Last Admin: 09/25/20 19:32 Dose: 5 mls/min Documented by: [id number] Daptomycin 400 mg/ Syringe 8 mls @ 4 mls/min IV NOW ONE; Protocol Stop: 09/25/20 19:17 Last Admin: 09/25/20 20:58 Dose: 4 mls/min Documented by: [id number] Acetaminophen (Ofirmev) 1,000 mg in 100 mls @ 400 mls/hr IV NOW STA Stop: 09/25/20 19:30 Last Infusion: 09/26/20 00:17 Dose: 0 mls/hr Documented by: [id number] Admin: 09/25/20 19:32 Dose: 400 mls/hr Documented by: [id number] Sodium Chloride (Nss 1000ml) 1,000 mls @ 999 mls/hr IV .Q1H1M ONE Stop: 09/25/20 20:16 Last Infusion: 09/26/20 00:18 Dose: 0 mls/hr Documented by: [id number] Admin: 09/25/20 19:32 Dose: 999 mls/hr Documented by: [id number] Magnesium Sulfate/Dextrose (Magnesium Sulfate / D5w) 1 gm in 100 mls @ 100 mls/hr IV NOW STA Stop: 09/25/20 20:23 Last Infusion: 09/25/20 22:00 Dose: 0 mls/hr Documented by: [id number] Admin: 09/25/20 20:58 Dose: 100 mls/hr Documented by: [id number] Doxycycline Hyclate 100 mg/ (Dextrose) 110 mls @ 50 mls/hr IV Q12H [facility] Stop: 10/02/20 21:59 Last Admin: 09/28/20 11:23 Dose: Not Given Documented by: [id number] Infusion: 09/28/20 01:13 Dose: 0 mls/hr Documented by: [id number] Admin: 09/27/20 23:10 Dose: 55 mls/hr Documented by: [id number] Infusion: 09/27/20 11:46 Dose: 0 mls/hr Documented by: [id number] Admin: 09/27/20 09:05 Dose: 55 mls/hr Documented by: [id number] Infusion: 09/27/20 01:30 Dose: 0 mls/hr Documented by: [id number] Admin: 09/26/20 23:14 Dose: 50 mls/hr Documented by: [id number] Infusion: 09/26/20 12:10 Dose: 0 mls/hr Documented by: [id number] Admin: 09/26/20 09:59 Dose: 50 mls/hr Documented by: [id number] Infusion: 09/26/20 01:38 Dose: 0 mls/hr Documented by: [id number] Admin: 09/25/20 23:26 Dose: 50 mls/hr Documented by: [id number] Sodium Chloride (Nss 1000ml) 1,000 mls @ 125 mls/hr IV .Q8H [facility] Stop: 10/25/20 21:29 Last Infusion: 09/27/20 11:46 Dose: 0 mls/hr Documented by: [id number] Admin: 09/27/20 06:12 Dose: 125 mls/hr Documented by: [id number] Infusion: 09/27/20 06:12 Dose: 125 mls/hr Documented by: [id number] Admin: 09/26/20 23:14 Dose: 125 mls/hr Documented by: [id number] Infusion: 09/26/20 23:14 Dose: 0 mls/hr Documented by: [id number] Infusion: 09/26/20 15:41 Dose: 0 mls/hr Documented by: [id number] Admin: 09/26/20 14:30 Dose: 125 mls/hr Documented by: [id number] Infusion: 09/26/20 12:04 Dose: 0 mls/hr Documented by: [id number] Admin: 09/26/20 03:17 Dose: 125 mls/hr Documented by: [id number] Infusion: 09/26/20 03:17 Dose: 125 mls/hr Documented by: [id number] Infusion: 09/26/20 02:12 Dose: 125 mls/hr Documented by: [id number] Infusion: 09/26/20 01:18 Dose: 0 mls/hr Documented by: [id number] Admin: 09/25/20 23:24 Dose: 125 mls/hr Documented by: [id number] Vancomycin HCl 1,250 mg/ (Sodium Chloride) 275 mls @ 200 mls/hr IV Q8H [facility]; Protocol Stop: 10/06/20 13:59 Last Infusion: 09/27/20 08:09 Dose: 0 mls/hr Documented by: [id number] Admin: 09/27/20 06:12 Dose: 200 mls/hr Documented by: [id number] Infusion: 09/27/20 01:30 Dose: 0 mls/hr Documented by: [id number] Admin: 09/26/20 23:14 Dose: 200 mls/hr Documented by: [id number] Infusion: 09/26/20 17:03 Dose: 0 mls/hr Documented by: [id number] Admin: 09/26/20 15:40 Dose: 200 mls/hr Documented by: [id number] Piperacillin Sod/Tazobactam (Sod 3.375 gm/ Dextrose) 115 mls @ 28.75 mls/hr IV Q8H [facility]; Protocol Stop: 10/06/20 00:00 Last Infusion: 09/28/20 11:58 Dose: 0 mls/hr Documented by: [id number] Admin: 09/28/20 08:48 Dose: 28.8 mls/hr Documented by: [id number] Infusion: 09/28/20 04:12 Dose: 0 mls/hr Documented by: [id number] Admin: 09/27/20 23:10 Dose: 28.8 mls/hr Documented by: [id number] Infusion: 09/27/20 20:56 Dose: 0 mls/hr Documented by: [id number] Admin: 09/27/20 16:55 Dose: 28.8 mls/hr Documented by: [id number] Infusion: 09/27/20 13:41 Dose: 0 mls/hr Documented by: [id number] Admin: 09/27/20 09:05 Dose: 28.8 mls/hr Documented by: [id number] Infusion: 09/27/20 05:55 Dose: 0 mls/hr Documented by: [id number] Admin: 09/27/20 01:30 Dose: 28.8 mls/hr Documented by: [id number] Infusion: 09/26/20 19:35 Dose: 0 mls/hr Documented by: [id number] Admin: 09/26/20 15:28 Dose: 28.8 mls/hr Documented by: [id number] Infusion: 09/26/20 14:03 Dose: 0 mls/hr Documented by: [id number] Admin: 09/26/20 09:55 Dose: 28.8 mls/hr Documented by: [id number] Infusion: 09/26/20 03:30 Dose: 0 mls/hr Documented by: [id number] Admin: 09/25/20 23:24 Dose: 28.8 mls/hr Documented by: [id number] Sodium Chloride (Nss) 500 mls @ 500 mls/hr IV .Q1H LUIS Stop: 09/25/20 23:44 Last Infusion: 09/26/20 01:18 Dose: 0 mls/hr Documented by: [id number] Admin: 09/25/20 23:27 Dose: 500 mls/hr Documented by: [id number] Magnesium Sulfate/Dextrose (Magnesium Sulfate / D5w) 1 gm in 100 mls @ 50 mls/hr IV Q2H LUIS Stop: 09/26/20 02:35 Last Infusion: 09/26/20 03:18 Dose: 0 mls/hr Documented by: [id number] Admin: 09/26/20 01:14 Dose: 50 mls/hr Documented by: [id number] Infusion: 09/26/20 01:14 Dose: 50 mls/hr Documented by: [id number] Admin: 09/25/20 23:29 Dose: 50 mls/hr Documented by: [id number] Sodium Chloride (Nss) 500 mls @ 500 mls/hr IV .Q1H LUIS Stop: 09/26/20 01:14 Last Infusion: 09/26/20 02:12 Dose: 0 mls/hr Documented by: [id number] Admin: 09/26/20 00:58 Dose: 500 mls/hr Documented by: [id number] Vancomycin HCl 1,750 mg/ (Sodium Chloride) 535 mls @ 200 mls/hr IV TODAY@0600 ONE Stop: 09/26/20 08:40 Last Infusion: 09/26/20 10:20 Dose: 0 mls/hr Documented by: [id number] Admin: 09/26/20 06:37 Dose: 200 mls/hr Documented by: [id number] Potassium Chloride (K Jason / Wtr) 10 meq in 100 mls @ 100 mls/hr IV Q1H LUIS Stop: 09/28/20 10:29 Last Infusion: 09/28/20 11:20 Dose: 0 mls/hr Documented by: [id number] Admin: 09/28/20 09:59 Dose: 100 mls/hr Documented by: [id number] Infusion: 09/28/20 09:48 Dose: 100 mls/hr Documented by: [id number] Admin: 09/28/20 08:48 Dose: 100 mls/hr Documented by: [id number] Influenza Virus Vaccine Quadrival (Influenza Virus Quad Vaccine 0.5 Ml Syr) 0.5 ml IM .ONCE ONE Stop: 09/26/20 14:46 Last Admin: 09/27/20 08:06 Dose: Not Given Documented by: [id number] Ioversol (Ioversol 100ml) 91 ml IV ONCE ONE Stop: 09/25/20 20:10 Last Admin: 09/25/20 20:09 Dose: 91 ml Documented by: [id number] Miscellaneous Information (Daptomycin Consult Active) 1 ea N/A UD PRN PRN Reason: Consult Stop: 10/25/20 19:15 Last Admin: 09/25/20 19:41 Dose: 1 ea Documented by: [id number] Ondansetron HCl (Ondansetron Inj 2 Mg/Ml 2 Ml Vial) 4 mg IV NOW STA Stop: 09/25/20 19:25 Last Admin: 09/25/20 19:31 Dose: 4 mg Documented by: [id number] Potassium Chloride (Potassium Chloride Crtab 20 Meq Tabcr) 40 meq PO NOW STA Stop: 09/27/20 10:14 Last Admin: 09/27/20 11:45 Dose: 40 meq Documented by: [id number] Potassium Chloride (Potassium Chloride Crtab 20 Meq Tabcr) 40 meq PO NOW STA Stop: 09/28/20 08:11 Last Admin: 09/28/20 08:48 Dose: 40 meq Documented by: [id number] Discharge Plan Visit Data Chief Complaint: Illness Stated Complaint: FEVER, NAUSEA, ABDOMINAL PAIN ED Provider: John Doll Discharge Problem: Fever, Acute hypotension, Abdominal pain, Colon cancer Patient Disposition: Admitted As Inpatient Discharge Instructions Interventions: ED Discharge Assessment Last Done: 09/25/20 21:30 Discharge Problem: Fever Qualifiers: Fever type: unspecified Qualified Code(s): R50.9 - Fever, unspecified Abdominal pain Qualifiers: Abdominal location: unspecified location Qualified Code(s): R10.9 - Unspecified abdominal pain Colon cancer Qualifiers: Colon location: unspecified part of colon Qualified Code(s): C18.9 - Malignant neoplasm of colon, unspecified
[2020-09-25] MEDS ORDERED: MAGNESIUM SULFATE / D5W 1 GM/100 ML BAG IV STA (19:24)
[2020-09-25] MEDS ORDERED: ONDANSETRON INJ 2 MG/ML 2 ML VIAL IV STA (19:24)
[2020-09-25] MEDS ORDERED: HYDROmorphone INJ 1 MG/ML SYRINGE IV PRN (19:24)
[2020-09-25 19:30] LABS: Giant Platelets 1+
[2020-09-25] MEDS ORDERED: OPTIRAY 320 100ml IV ONE (20:09)
--- NOTE | 2020-09-25 21:11 | CT Scan Report ---
ABDOMEN AND PELVIS CT WITH IV CONTRAST CT DOSE: 489.10 mGy.cm HISTORY: Acute generalized abdominal pain with concern for bowel obstruction. History of colon cancer . Pt c/o abd pain, hx of colon obstruction TECHNIQUE: Multiaxial CT images of the abdomen and pelvis were performed following the IV administrat ion of 91 cc of Optiray 320, A dose lowering technique was utilized adhering to the principles of AL DHRUV. COMPARISON STUDY: CT abdomen pelvis 08/29/2020. FINDINGS: Bibasilar pulmonary nodules are redemonstrated. 9 mm solid nodule of the right middle lobe previously measured 7 mm. Conglomerate nodule of the left lower lobe measuring 3.1 cm on image 12 pre viously measured 2.5 cm. No pneumatosis or pneumoperitoneum. Cardiomegaly with coronary artery calcif ications. The spleen is enlarged measuring 17.6 cm. Mild to moderate generalized pancreatic atrophy. Unremarkable adrenal glands. Cholelithiasis with gallbladder wall thickening is similar to comparison . Periportal edema. No hepatic metastasis identified. There are 2 nonobstructing calculi noted within the left kidney measuring up to 8 mm. Mildly atrophic left kidney with cortical thinning. Unchanged probable cyst of the interpolar left kidney, 12 mm. No hydronephrosis. Calcifications of the central prostate. Urinary bladder wall thickening with partial distention. No abdominal aortic aneurysm. Pathologically enlarged retroperitoneal lymph nodes also i ncreased in size from comparison. Index lymph node on image 240 series 3 within the left iliac chain measures 1.5 cm in short axis, previously 1.1 cm. Pathologic iliac chain lymph nodes are also present . Small hiatal hernia with distal esophageal wall thickening. Diffuse mesenteric and body wall edema. U nchanged positioning of the colonic stent at the descending sigmoid junction with decreased amount of upstream colonic distention. Wall thickening of the distal descending colon, sigmoid and rectum with pericolonic stranding. Moderate fecal retention. Normal appendix. No small bowel obstruction. No acu te fracture. There are no new bone lesions. With upstream IMPRESSION: 1. Stable positioning of the colonic stent located at the descending sigmoid junction. There is persi stent narrowing of the colon at the level of the stent however there is a decreased amount of upstrea m colonic distention. 2. Wall thickening of the distal descending colon, sigmoid and rectum is suggestive of a nonspecific proctocolitis. 3. No bowel obstruction or pneumoperitoneum. 4. Normal appendix. 5. Progressive metastatic disease manifested by increased size of the pulmonary nodules with increase d size of numerous abdominal lymph nodes. 6. Splenomegaly. 7. Cholelithiasis with unchanged gallbladder wall thickening. 8. Nonobstructing left nephrolithiasis. 9. Additional findings as above. ACT 112: Negative or not required by law. The above report was generated using voice recognition software. It may contain grammatical, syntax o r spelling errors. Electronically signed by: Nahum Higgins M.D. 09/25/2020 9:10 PM
[2020-09-25 21:22] LABS: INR 1.1 (0.9-1.1); Partial Thromboplastin Time 25.7 Seconds (21.0-31.0)
[2020-09-25] MEDS ORDERED: HYDROmorphone INJ 0.5 MG/0.5 ML SYR IV PRN (21:30)
[2020-09-25] MEDS ORDERED: oxyCODONE/ACETAMINOPHEN 5mg/325mg TAB PO PRN (21:30)
[2020-09-25] MEDS ORDERED: VANCOMYCIN CONSULT ACTIVE PRN (21:30)
[2020-09-25] MEDS ORDERED: DIPHENOXYLATE/ATROPINE 2.5/0.025MG TAB PO PRN (21:30)
[2020-09-25] MEDS ORDERED: PIPERACILL/TAZOBAC CONSULT ACTIVE PRN (21:30)
[2020-09-25] MEDS ORDERED: PROCHLORPERAZINE MALEATE 10 MG TAB PO PRN (21:30)
[2020-09-25] MEDS ORDERED: HYOSCYAMINE SULFATE 0.125 MG TAB PO PRN (21:30)
[2020-09-25] MEDS ORDERED: ACETAMINOPHEN 325 MG TAB PO PRN (21:30)
[2020-09-25] MEDS ORDERED: NITROGLYCERIN SL 0.4 MG/TAB TAB SL PRN (21:30)
[2020-09-25] MEDS ORDERED: ONDANSETRON INJ 2 MG/ML 2 ML VIAL IV PRN (21:30)
[2020-09-25 21:33] LABS: C Reactive Protein 2.04 mg/dl (0-0.29); Magnesium 1.6 mg/dl (1.8-2.4); Troponin I < 0.015 ng/ml (0-0.045)
[2020-09-25] MEDS ORDERED: SODIUM CHLORIDE 0.9% 500 ML IV SCH (22:45)
--- NOTE | 2020-09-25 22:49 | History and Physical Report ---
DATE OF ADMISSION: 09/25/2020 CHIEF COMPLAINT: Fever, illness. 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 The patient was recently in the hospital, admitted on 09/03/2020 and discharged on 09/06/2020. During the hospital stay, he was treated for pyelonephritis and pneumonia with antibiotics and was diagnosed with left lower extremity acute deep venous thrombosis. He was treated with heparin and discharged on Lovenox and he also was placed on midodrine for hypotension. He has 2 overlapping colonic stents to the left side of the colon. The patient lives with daughter and ambulates sometimes with a walker, sometimes with a cane. Appetite is not that great. Last about 1 week he was getting fever in the evening time. He was told probably from inflammation from his colonic stent, but his fevers got worse and he was shaking chills, for which daughter brought him to the hospital today. In the ER, his temperature spike was 39.4, tachycardia with pulse 108, blood pressure is okay, saturating fine, leukopenia, with 3.32 white count, platelets are 109. Lactate is pending. He is complaining of lower abdominal pain. CT of the abdomen and pelvis was done in the ER showing stable position of colonic stents located in the descending sigmoid junction, persistent narrowing of the colon at the level of stent; however, there is decreased amount of upstream colonic distention and also nonspecific proctocolitis. Progressive metastatic disease manifested by increased size of the pulmonary nodules with increase of numerous abdominal lymph nodes, cholelithiasis, unchanged gallbladder wall thickening, nonobstructing left nephrolithiasis. Chest x-ray: No acute process. The patient is requiring several blankets to keep himself warm because of his having chills, complaints of headaches, mild blurred vision, no earache, has runny nose last few days, has dry cough the last few days, no dysphagia, no chest pain, no shortness of breath. Has nausea, no vomiting, moved small amount of bowels today morning. No blood in the stools or black stools. No hematuria, no burning micturition, no swelling in the legs. No rash. No recent weight gain or weight loss. ALLERGIES: No known drug allergies. PAST MEDICAL HISTORY: As mentioned above. PAST SURGICAL HISTORY: Colonoscopy with biopsy, cystoscopy, EGDs, EGD with endoscopic ultrasound, A-port placement, cystoscopy, left ureteroscopy, laser lithotripsy, basket stone extraction and stent placement, tonsillectomy, adenoidectomy, repair of inguinal hernia. MEDICATIONS: The patient is on vitamin B12 500 mcg p.o. a.m., Lomotil 1 tablet p.o. q.i.d. p.r.n., Lovenox 30 mg subcutaneous daily, ferrous sulfate 325 mg p.o. b.i.d., Levsin 0.125 mg p.o. q. 6 hours p.r.n., midodrine 10 mg p.o. t.i.d., Remeron 15 mg p.o. at bedtime, morphine sulfate 50 mg p.o. b.i.d., Zofran 8 mg q. 8 hours p.r.n., oxycodone/acetaminophen 5/325 mg one tablet p.o. q. 6 hours p.r.n., Actos 30 mg p.o. a.m., Compazine 10 mg p.o. q. 6 hours p.r.n. FAMILY HISTORY: Significant for mother had breast cancer. Father had stroke. Brother has diabetes. Sister has diabetes. SOCIAL HISTORY: , currently lives with her daughter. Former smoker. No alcohol use, no drug use. REVIEW OF SYMPTOMS: As per HPI. Rest of review of systems negative. PHYSICAL EXAMINATION: GENERAL: The patient is of moderate build, not in acute distress. VITAL SIGNS: Temperature 39.4, pulse 108, respiratory rate 24, blood pressure 113/96, oxygen 100% on room air. HEENT: Pupils equal, round, reactive to light. Oral mucosa moist. NECK: No JVD. No neck masses seen. CARDIOVASCULAR: S1, S2 heard, regular rate and rhythm, no murmur, no gallop. RESPIRATORY: Normal AP diameter. No accessory muscle use. Mild bibasilar crackles. No wheezing. A-port seen in the left side of the chest. No redness or drainage seen from the A-port site. A-port site seems clean. ABDOMEN: Soft, bowel sounds present, nontender. No distention, no guarding, no rigidity. CENTRAL NERVOUS SYSTEM: Cranial nerves II-XII grossly intact, nonfocal. EXTREMITIES: No edema, no erythema. LABORATORY DATA: WBC 3.3, hemoglobin 8.5, hematocrit 26.4, platelets 109. Sodium 134, potassium 4, chloride 102, bicarbonate 26, BUN 11, creatinine 0.6, serum glucose 160, lactate pending. Calcium 8.4, magnesium pending, creatinine pending, total bilirubin 0.3, AST 18, ALT 18, alkaline phosphatase 114. LDH pending. Procalcitonin pending. IMAGING: CT of abdomen and pelvis showed stable position of the colonic stent located at the descending sigmoid junction. There is a persistent narrowing of the colon at the level of stent; however, there is decreased amount of upstream colonic distention, wall thickening of the distal descending colon, sigmoid and rectum, also history of nonspecific proctocolitis. No bowel obstruction or pneumoperitoneum. Normal appendix. Progressive metastatic disease manifested by increased size of the pulmonary nodes, increased size of numerous abdominal lymph nodes, splenomegaly, cholelithiasis with unchanged gallbladder wall thickening, nonobstructing left nephrolithiasis. Chest x-ray: No acute process. EKG: Normal sinus rhythm, rate of 78, no acute ST changes seen. ASSESSMENT AND PLAN: This is a 60-year old male who presents with fever, possible sepsis. 1. Fever, possible sepsis with temperature spike, tachycardia, leukopenia. Lactic acid is normal.. The patient is complaining of abdominal pain, source could be abdomen. We will follow urinalysis and culture. Follow the blood cultures. Empirically started on vancomycin, , Zosyn and doxycycline. Continue with fluids, normal saline 125 mL per hour and monitor in the tele floor. 2. Pancytopenia secondary to chemo. Follow the labs. 3. History of left lower extremity DVT, on Lovenox. We will continue. 4. History of hypotension, on midodrine, which we will continue. 5. History of colon cancer stage IV, follows with Hematology/Oncology, on chemo; last chemo was 09/20/2020. Gets chemo every other week. Has received Parveen and Parveen COVID shot on 09/17/2020. 6. Severe protein-calorie malnutrition. We will consult nutrition. 7 Deep venous thrombosis prophylaxis, on Lovenox. DISPOSITION: Closely monitor in the tele floor. Code status: Full code. PT and OT prior to discharge. Social service to help with discharge planning. Addendum: received fluid boluses for hypotension. Blood cultures growing gm negative bacilli. MTDD
[2020-09-25] MEDS: SODIUM CHLORIDE 0.9% 1000ML 1,000 ML IV SCH (23:24)
[2020-09-25] MEDS: PIPERACILLIN/TAZOBACTAM 3.375 GM in DEXTROSE 5% 100 ML IV SCH (23:24)
[2020-09-25] MEDS: DOXYCYCLINE HYCLATE 100 MG in DEXTROSE 5% 100 ML IV SCH (23:26)
[2020-09-25] MEDS: MAGNESIUM SULFATE / D5W 1 GM/100 ML BAG IV SCH (23:29)
[2020-09-25 23:40] LABS: Influenza A virus by PCR Negative (Neg); Influenza B virus by PCR Negative (Neg); RSV by PCR Negative (Neg); SARS CoV2 RNA(COVID-19) InHosp NEGATIVE (Negative)
[2020-09-25] MEDS: INSULIN GLARGINE SOLOSTAR 100 UNITS/ML 3 ML PEN SC SCH (23:47)
[2020-09-25] MEDS: INSULIN ASPART 100 UNITS/ML 3 ML PEN SC SCH (23:48)
[2020-09-26] MEDS ORDERED: SODIUM CHLORIDE 0.9% 500 ML IV SCH (00:15)
[2020-09-26] MEDS: MoRPHine SULFATE CR 15 MG TABCR PO SCH ×3 (00:52→20:51)
[2020-09-26] MEDS: MIRTAZAPINE TAB 15 MG TAB PO SCH ×2 (00:58→20:51)
[2020-09-26] MEDS: FERROUS SULFATE 325 MG TAB PO SCH ×3 (00:58→20:51)
[2020-09-26] MEDS: MAGNESIUM SULFATE / D5W 1 GM/100 ML BAG IV SCH (01:14)
[2020-09-26 02:34] LABS: Appearance Urine Clear (Clear); Bilirubin Urine Negative (Negative); Blood Urine Negative (Negative); Color Urine Yellow; Glucose Urine UA Negative (Negative); Ketones Urine Negative (Negative); Leukocyte Esterase Urine Negative (Negative); Nitrite Urine Negative (Negative); Protein Urine Negative (Negative); Specific Gravity Urine 1.045 (1.000-1.030); Urobilinogen Urine Negative (Negative)
[2020-09-26] MEDS: SODIUM CHLORIDE 0.9% 1000ML 1,000 ML IV SCH ×3 (03:17→23:14)
[2020-09-26 05:43] LABS: Hematocrit (blood only) 22.9 % (42-52); Hemoglobin 7.4 g/dL (14.0-18.0); Mean Corpuscular Hemoglobin 29.8 pg (25-34); Mean Corpuscular Hgb Conc 32.3 g/dL (32-36); Mean Corpuscular Volume 92.3 fL (80-100); RDW Coefficient of Variation 16.1 % (11.5-14.5); RDW Standard Deviation 54.8 fL (36.4-46.3); Red Blood Count 2.48 M/uL (4.7-6.1)
[2020-09-26 05:47] LABS: Mean Platelet Volume 9.5 fL (7.4-10.4); Platelet Count 69 K/uL (130-400)
[2020-09-26] MEDS ORDERED: VANCOMYCIN HCL 1,750 MG in SODIUM CHLORIDE 0.9% 500 ML IV ONE (06:00)
[2020-09-26 06:07] LABS: Eosinophils # (auto) 0.01 K/uL (0-0.5); Eosinophils % (auto) 0.3 %; Giant Platelets 1+; Immature Granulocytes # (auto) 0.02 K/uL (0.00-0.02); Immature Granulocytes % (auto) 0.6 %; Lymphocytes # (auto) 0.27 K/uL (1.2-3.4); Lymphocytes % (auto) 7.5 %; Monocytes # (auto) 0.18 K/uL (0.11-0.59); Neutrophils # (auto) 3.12 K/uL (1.4-6.5); Neutrophils % (auto) 86.6 %
[2020-09-26 06:21] LABS: BUN Creatinine Ratio 18.5 (10-20); Calcium 7.8 mg/dl (8.5-10.1); Creatinine Clr Calc Pharmacy 131.1 ml/min; Est GFR (African American) 127.6; Est GFR (Non-African American) 110.1; Magnesium 2.4 mg/dl (1.8-2.4); Potassium 3.5 mmol/L (3.5-5.1)
[2020-09-26 06:33] LABS: Estimated Average Glucose 128 mg/dl; Hemoglobin A1C 6.1 % (4.5-5.6)
[2020-09-26] MEDS: INSULIN ASPART 100 UNITS/ML 3 ML PEN SC SCH ×4 (08:45→20:48)
[2020-09-26] MEDS: MIDODRINE HCL 10 MG TAB PO SCH ×3 (09:55→16:29)
[2020-09-26] MEDS: INSULIN GLARGINE SOLOSTAR 100 UNITS/ML 3 ML PEN SC SCH ×2 (09:55→20:47)
[2020-09-26] MEDS: PIPERACILLIN/TAZOBACTAM 3.375 GM in DEXTROSE 5% 100 ML IV SCH ×2 (09:55→15:28)
[2020-09-26] MEDS: DOXYCYCLINE HYCLATE 100 MG in DEXTROSE 5% 100 ML IV SCH ×2 (09:59→23:14)
[2020-09-26] MEDS: CYANOCOBALAMIN 500 MCG TABLET (VITAMIN B-12) PO SCH (10:06)
[2020-09-26] MEDS: ENOXAPARIN 80 MG/0.8 ML SYR SQ SCH (13:27)
--- NOTE | 2020-09-26 13:34 | Pharmacy Report ---
Pharmacy Abx Initial Consult - Date of Service September 26, 2020 - Pharmacy Dosing Scope Date of Consult: 09/26/2020 Consultation requested by: Dr. Hernandez Pharmacy is consulted to initiate Vancomycin and Zosyn IV dosing therapy, order appropriate labs and adjust drug dose/frequency. - Subjective The patient is a 60 year old M admitted on 09/25/20 20:46. - Objective Height: 5 ft 6 in Weight: 76.8 kg Vital Signs (Past 12hrs): Vital Signs Temp Pulse Resp BP Pulse Ox 09/26/20 12:15 37.0 C 84 16 108/64 98 09/26/20 03:46 36.8 C 83 18 92/57 L 97 Lab Results (24hrs): Laboratory Tests (24 Hours) 09/26/20 09/26/20 09/25/20 05:27 05:27 20:56 WBC 3.60 L Neut # (Auto) 3.12 ESR Creatinine 0.57 L Est Cr Clr Drug Dosing 131.1 C-Reactive Protein Procalcitonin 1.20 H 09/25/20 09/25/20 09/25/20 20:56 20:56 18:14 WBC Neut # (Auto) ESR 24 H Creatinine 0.60 Est Cr Clr Drug Dosing 115.2 C-Reactive Protein 2.04 H Procalcitonin 09/25/20 18:14 WBC 3.32 L Neut # (Auto) 2.38 ESR Creatinine Est Cr Clr Drug Dosing C-Reactive Protein Procalcitonin Micro Results: 09/25/20 18:55 Anaerobic Blood Culture - Pending Blood - Risk Factors for Resistance * Hospitalization for 48 hours or more within the past 90 days * Immunocompromised (chemotherapy, last session 09/20/20) * Antimicrobial use within the last 90 days: Cefepime, Doxycycline, Zosyn - Assessment & Plan Assessment 60 year old M admitted with fever and possible sepsis * PMHx significant for Stage IV descending colon adenocarcinoma with last chemotherapy session on 09/20/20 * Recently admitted from 08/25-09/06/20 with similar issue * Concerns for proctocolitis * Blood cultures growing gram negative bacilli. Will follow. Plan Vancomycin, Zosyn and Doxycycline for empiric treatment of sepsis Vancomycin IV * Loading dose: 1750 mg (24 mg/kg) * Maintenance dose: 1250 mg IV (17 mg/kg) every 8 hours * Goal trough level: 15 to 20 mcg/mL * Trough level ordered for Friday Piperacillin/tazobactam * 3.375 g IV extended infusion every 8 hours for CrCl greater than 20 mL/min Pharmacy will continue to follow and will adjust dose/frequency as necessary. Thank you.
--- NOTE | 2020-09-26 14:26 | Electrocardiogram Report ---
Test Reason : Blood Pressure : / mmHG Vent. Rate : 078 BPM Atrial Rate : 078 BPM P-R Int : 184 ms QRS Dur : 072 ms QT Int : 360 ms P-R-T Axes : -01 -20 039 degrees QTc Int : 410 ms Normal sinus rhythm Normal ECG When compared with ECG of 25-AUG-2020 19:02, Criteria for Anterior infarct are no longer Present Confirmed by Anthony Ryder ([id number]) on 09/26/2020 2:26:28 PM Referred By: REFERRED SELF Confirmed By:Mao Ryder
[2020-09-26] MEDS: VANCOMYCIN HCL 1,250 MG in SODIUM CHLORIDE 0.9% 250 ML IV SCH ×2 (15:40→23:14)
[2020-09-27] MEDS ORDERED: HEPARIN 100 UNIT/ML 5ML FLUSH FLUSH PRN (00:19)
[2020-09-27] MEDS: PIPERACILLIN/TAZOBACTAM 3.375 GM in DEXTROSE 5% 100 ML IV SCH ×4 (01:30→23:10)
[2020-09-27] MEDS: SODIUM CHLORIDE 0.9% 1000ML 1,000 ML IV SCH (06:12)
[2020-09-27] MEDS: VANCOMYCIN HCL 1,250 MG in SODIUM CHLORIDE 0.9% 250 ML IV SCH (06:12)
[2020-09-27] MEDS: DOXYCYCLINE HYCLATE 100 MG in DEXTROSE 5% 100 ML IV SCH ×2 (09:05→23:10)
[2020-09-27] MEDS: MIDODRINE HCL 10 MG TAB PO SCH ×3 (09:10→16:56)
[2020-09-27] MEDS: CYANOCOBALAMIN 500 MCG TABLET (VITAMIN B-12) PO SCH (09:10)
[2020-09-27] MEDS: FERROUS SULFATE 325 MG TAB PO SCH ×2 (09:11→20:51)
[2020-09-27] MEDS: INSULIN ASPART 100 UNITS/ML 3 ML PEN SC SCH ×4 (09:11→20:40)
[2020-09-27] MEDS: INSULIN GLARGINE SOLOSTAR 100 UNITS/ML 3 ML PEN SC SCH ×2 (09:12→20:51)
[2020-09-27] MEDS: MoRPHine SULFATE CR 15 MG TABCR PO SCH ×2 (09:12→20:51)
[2020-09-27 09:24] LABS: Hematocrit (blood only) 24.3 % (42-52); Hemoglobin 7.8 g/dL (14.0-18.0); Mean Corpuscular Hemoglobin 29.4 pg (25-34); Mean Corpuscular Hgb Conc 32.1 g/dL (32-36); Mean Corpuscular Volume 91.7 fL (80-100); RDW Coefficient of Variation 16.1 % (11.5-14.5); RDW Standard Deviation 54.6 fL (36.4-46.3); Red Blood Count 2.65 M/uL (4.7-6.1); White Blood Count 2.47 K/uL (4.8-10.8)
[2020-09-27 09:31] LABS: Mean Platelet Volume 9.6 fL (7.4-10.4); Platelet Count 95 K/uL (130-400)
[2020-09-27 09:59] LABS: BUN Creatinine Ratio 14.3 (10-20); Calcium 7.9 mg/dl (8.5-10.1); Est GFR (African American) 124.9; Est GFR (Non-African American) 107.8; Potassium 2.8 mmol/L (3.5-5.1)
[2020-09-27 10:09] LABS: Eosinophils # (auto) 0.08 K/uL (0-0.5); Eosinophils % (auto) 3.2 %; Lymphocytes # (auto) 0.49 K/uL (1.2-3.4); Lymphocytes % (auto) 19.8 %; Monocytes # (auto) 0.21 K/uL (0.11-0.59); Monocytes % (auto) 8.5 %; Neutrophils # (auto) 1.69 K/uL (1.4-6.5); Neutrophils % (auto) 68.5 %; RBC Morphology Unremarkable
[2020-09-27] MEDS ORDERED: POTASSIUM CHLORIDE CRTAB 20 MEQ TABCR PO STA (10:13)
[2020-09-27] MEDS: NSS + 20MEQ KCL 20 MEQ/1,000 ML BAG IV SCH ×2 (11:45→20:51)
[2020-09-27] MEDS: ENOXAPARIN 80 MG/0.8 ML SYR SQ SCH (11:45)
[2020-09-27] MEDS ORDERED: VANCOMYCIN TROUGH ONE (13:30)
--- NOTE | 2020-09-27 14:30 | Hospitalist Progress Note ---
Date of Service September 26, 2020 Delayed note for September 16 Assessment & Plan (1) Proctocolitis: Possible sepsis Presented with fever, abdominal pain and generalized illness CT scan of the abdomen pelvis did show nonspecific colitis Has been started 1 intravenous vancomycin and Zosyn Doxycycline for possible respiratory infection (2) Colon cancer: He has stage IV colon cancer with metastasis to intrathoracic lymph node Status post colonic stent placement Ongoing chemotherapy and last chemo was on 09/20/2020 (3) Pancytopenia: Secondary to chemo (4) DM type 2 (diabetes mellitus, type 2): Has been on SSI (5) DVT prophylaxis: Subcu Lovenox (6) Gram-negative bacteremia: Admission and Anticipated Discharge Date Admission Date: September 25, 2020 Subjective 09/26/2020 The patient was seen and examined in telemetry unit He has been feeling much better since admission Complains of some distention of the abdomen but bowel has moved Pain seems to be under control Review of Systems Review of Systems: All systems reviewed and are unremarkable except as noted below Gastrointestinal: + abdominal pain and + bloating; no nausea and no vomiting Physical Exam Physical Exam: Lying in bed comfortably Constitutional: + ill appearing and average body habitus Eyes: PERRL, conjunctivae normal, anicteric sclerae ENMT: external ear and nose normal, oropharynx normal Neck: trachea midline, no thyromegaly Respiratory: no respiratory distress Auscultation: lungs clear to auscultation bilaterally Cardiovascular: Rate/Rhythm: regular rate and regular rhythm Heart Sounds: + murmur (2/6 ejection systolic murmur over aortic area) Gastrointestinal (Abdomen): Inspection/Auscultation: + abdomen distended and normal bowel sounds Percussion/Palpation: + abdomen tender (Mildly tender all over and mainly left lower quadrant) and abdomen soft Results & Data Results & Data ([facility]) Vital Signs (Past 12 Hours) Vital Signs Temp Pulse Pulse Resp BP Pulse Ox 09/27/20 11:57 37.0 C 84 18 128/68 99 09/27/20 08:00 36.5 C 75 77 18 115/69 98 09/27/20 03:22 36.7 C 74 18 106/65 98 Laboratory Results Short CBC 09/27/20 Range/Units 08:53 WBC 2.47 L (4.8-10.8) K/uL Hgb 7.8 L (14.0-18.0) g/dL Hct 24.3 L (42-52) % Plt Count 95 L (130-400) K/uL BMP 09/27/20 08:53 Sodium 137 Potassium 2.8 L D Chloride 108 H Carbon Dioxide 23 BUN 9 Creatinine 0.60 Glucose 184 H Calcium 7.9 L Medications Administered Current Inpatient Medications Acetaminophen (Acetaminophen 325 Mg Tab) 650 mg PO Q4H PRN PRN Reason: Pain or Fever Stop: 10/25/20 21:29 Cyanocobalamin (Cyanocobalamin 500 Mcg Tablet (Vitamin B-12)) 500 mcg PO QAM LUIS Stop: 10/26/20 08:59 Last Admin: 09/27/20 09:10 Dose: 500 mcg Documented by: Diphenoxylate HCl/Atropine (Diphenoxylate/Atropine 2.5/0.025mg Tab) 1 tab PO Q ID PRN PRN Reason: Diarrhea Stop: 10/25/20 21:29 Enoxaparin Sodium (Enoxaparin 80 Mg/0.8 Ml Syr) 80 mg SQ DAILY LUIS Stop: 10/26/20 08:59 Last Admin: 09/27/20 11:45 Dose: 80 mg Documented by: Ferrous Sulfate (Ferrous Sulfate 325 Mg Tab) 325 mg PO BID LUIS Stop: 10/25/20 21:29 Last Admin: 09/27/20 09:11 Dose: 325 mg Documented by: Heparin Sodium (Porcine) (Heparin 100 Unit/Ml 5ml Flush) 5 ml FLUSH PRN PRN PRN Reason: Flush Stop: 10/27/20 00:18 Hydromorphone HCl (Hydromorphone Inj 0.5 Mg/0.5 Ml Syr) 0.5 mg IV Q4H PRN PRN Reason: Pain Stop: 10/09/20 21:29 Hyoscyamine (Hyoscyamine Sulfate 0.125 Mg Tab) 0.125 mg PO Q6H PRN PRN Reason: Cramping Stop: 10/25/20 21:29 Doxycycline Hyclate 100 mg/ (Dextrose) 110 mls @ 50 mls/hr IV Q12H LUIS Stop: 10/02/20 21:59 Last Infusion: 09/27/20 11:46 Dose: Infused Documented by: Piperacillin Sod/Tazobactam (Sod 3.375 gm/ Dextrose) 115 mls @ 28.75 mls/hr IV Q8H [facility]; Protocol Stop: 10/06/20 00:00 Last Infusion: 09/27/20 13:41 Dose: Infused Documented by: Potassium Chloride/Sodium Chloride (Normal Saline W/20 Meq Kcl) 20 meq in 1,000 mls @ 100 mls/hr IV .Q10H [facility] Stop: 10/27/20 10:44 Last Admin: 09/27/20 11:45 Dose: 100 mls/hr Documented by: Insulin Aspart (Insulin Aspart 100 Units/Ml 3 Ml Pen) 0 units SC ACHS [facility] Stop: 10/25/20 21:29 Last Admin: 09/27/20 12:42 Dose: 2 units Documented by: Insulin Glargine (Insulin Glargine Solostar 100 Units/Ml 3 Ml Pen) 5 units SC BID [facility] Stop: 10/25/20 21:29 Last Admin: 09/27/20 09:12 Dose: 5 units Documented by: Midodrine (Midodrine Hcl 10 Mg Tab) 10 mg PO TID@0800,1200,1700 [facility] Stop: 10/26/20 07:59 Last Admin: 09/27/20 12:43 Dose: 10 mg Documented by: Mirtazapine (Mirtazapine Tab 15 Mg Tab) 15 mg PO HS [facility] Stop: 10/25/20 21:29 Last Admin: 09/26/20 20:51 Dose: 15 mg Documented by: Miscellaneous Information (Piperacill/Tazobac Consult Active) 1 ea N/A UD PRN PRN Reason: Consult Stop: 10/25/20 21:29 Morphine Sulfate (Morphine Sulfate Cr 15 Mg Tabcr) 15 mg PO Q12H [facility] Stop: 10/09/20 21:29 Last Admin: 09/27/20 09:12 Dose: 15 mg Documented by: Nitroglycerin (Nitroglycerin Sl 0.4 Mg/Tab Tab) 0.4 mg SL UD PRN PRN Reason: Chest Pain Stop: 10/25/20 21:29 Ondansetron HCl (Ondansetron Inj 2 Mg/Ml 2 Ml Vial) 4 mg IV Q6H PRN PRN Reason: Nausea Stop: 10/25/20 21:29 Oxycodone/Acetaminophen (Oxycodone/Acetaminophen 5mg/325mg Tab) 1 tab PO Q6 PRN PRN Reason: Pain-Mild/Moderate Stop: 10/09/20 21:29 Last Admin: 09/27/20 06:19 Dose: 1 tab Documented by: Prochlorperazine (Prochlorperazine Maleate 10 Mg Tab) 10 mg PO Q6H PRN PRN Reason: Nausea Stop: 10/25/20 21:29
--- NOTE | 2020-09-27 15:25 | Hospitalist Progress Note ---
Date of Service September 27, 2020 Assessment & Plan (1) Gram-negative bacteremia: Presented with profound weakness without any fever Blood culture is growing gram-negative bacilli and further identification and sensitivities pending Likely source nonspecific proctocolitis Has been on intravenous Zosyn and doxycycline to cover respiratory pathogens as well Clinically indicated better today (2) Proctocolitis: Possible sepsis Presented with fever, abdominal pain and generalized illness CT scan of the abdomen pelvis did show nonspecific colitis Has been started 1 intravenous vancomycin and Zosyn Doxycycline for possible respiratory infection (3) Colon cancer: He has stage IV colon cancer with metastasis to intrathoracic lymph node Status post colonic stent placement Ongoing chemotherapy and last chemo was on 09/20/2020 (4) Pancytopenia: Secondary to chemo We will monitor CBC and electrolytes (5) DM type 2 (diabetes mellitus, type 2): Has been on SSI (6) DVT prophylaxis: Subcu Lovenox Admission and Anticipated Discharge Date Admission Date: September 25, 2020 Subjective 09/26/2020 The patient was seen and examined in telemetry unit He has been feeling much better since admission Complains of some distention of the abdomen but bowel has moved Pain seems to be under control 09/27/2020 The patient was seen and examined in telemetry unit He complains some distention of the abdomen with pain Denies any fever and/or chills Review of Systems Review of Systems: All systems reviewed and are unremarkable except as noted below Gastrointestinal: + abdominal pain and + bloating; no nausea and no vomiting Physical Exam Physical Exam: Lying in bed comfortably Constitutional: + ill appearing and average body habitus Eyes: PERRL, conjunctivae normal, anicteric sclerae ENMT: external ear and nose normal, oropharynx normal Neck: trachea midline, no thyromegaly Respiratory: no respiratory distress Auscultation: lungs clear to auscultation bilaterally Cardiovascular: Rate/Rhythm: regular rate and regular rhythm Heart Sounds: + murmur (2/6 ejection systolic murmur over aortic area) Gastrointestinal (Abdomen): Inspection/Auscultation: + abdomen distended and normal bowel sounds Percussion/Palpation: + abdomen tender (Mildly tender all over and mainly left lower quadrant) and abdomen soft Musculoskeletal: No acute arthritis in any joint Neurologic: Alert, awake and oriented. Generally weak Results & Data Results & Data ([facility]) Vital Signs (Past 12 Hours) Vital Signs Temp Pulse Pulse Resp BP Pulse Ox 09/27/20 11:57 37.0 C 84 18 128/68 99 09/27/20 08:00 36.5 C 75 77 18 115/69 98 Laboratory Results Short CBC 09/27/20 Range/Units 08:53 WBC 2.47 L (4.8-10.8) K/uL Hgb 7.8 L (14.0-18.0) g/dL Hct 24.3 L (42-52) % Plt Count 95 L (130-400) K/uL BMP 09/27/20 08:53 Sodium 137 Potassium 2.8 L D Chloride 108 H Carbon Dioxide 23 BUN 9 Creatinine 0.60 Glucose 184 H Calcium 7.9 L Medications Administered Current Inpatient Medications Acetaminophen (Acetaminophen 325 Mg Tab) 650 mg PO Q4H PRN PRN Reason: Pain or Fever Stop: 10/25/20 21:29 Cyanocobalamin (Cyanocobalamin 500 Mcg Tablet (Vitamin B-12)) 500 mcg PO QAM [facility] Stop: 10/26/20 08:59 Last Admin: 09/27/20 09:10 Dose: 500 mcg Documented by: Diphenoxylate HCl/Atropine (Diphenoxylate/Atropine 2.5/0.025mg Tab) 1 tab PO QID PRN PRN Reason: Diarrhea Stop: 10/25/20 21:29 Enoxaparin Sodium (Enoxaparin 80 Mg/0.8 Ml Syr) 80 mg SQ DAILY [facility] Stop: 10/26/20 08:59 Last Admin: 09/27/20 11:45 Dose: 80 mg Documented by: Ferrous Sulfate (Ferrous Sulfate 325 Mg Tab) 325 mg PO BID [facility] Stop: 10/25/20 21:29 Last Admin: 09/27/20 09:11 Dose: 325 mg Documented by: Heparin Sodium (Porcine) (Heparin 100 Unit/Ml 5ml Flush) 5 ml FLUSH PRN PRN PRN Reason: Flush Stop: 10/27/20 00:18 Hydromorphone HCl (Hydromorphone Inj 0.5 Mg/0.5 Ml Syr) 0.5 mg IV Q4H PRN PRN Reason: Pain Stop: 10/09/20 21:29 Hyoscyamine (Hyoscyamine Sulfate 0.125 Mg Tab) 0.125 mg PO Q6H PRN PRN Reason: Cramping Stop: 10/25/20 21:29 Doxycycline Hyclate 100 mg/ (Dextrose) 110 mls @ 50 mls/hr IV Q12H [facility] Stop: 10/02/20 21:59 Last Infusion: 09/27/20 11:46 Dose: Infused Documented by: Piperacillin Sod/Tazobactam (Sod 3.375 gm/ Dextrose) 115 mls @ 28.75 mls/hr IV Q8H [facility]; Protocol Stop: 10/06/20 00:00 Last Infusion: 09/27/20 13:41 Dose: Infused Documented by: Potassium Chloride/Sodium Chloride (Normal Saline W/20 Meq Kcl) 20 meq in 1,000 mls @ 100 mls/hr IV .Q10H [facility] Stop: 10/27/20 10:44 Last Admin: 09/27/20 11:45 Dose: 100 mls/hr Documented by: Insulin Aspart (Insulin Aspart 100 Units/Ml 3 Ml Pen) 0 units SC ACHS [facility] Stop: 10/25/20 21:29 Last Admin: 09/27/20 12:42 Dose: 2 units Documented by: Insulin Glargine (Insulin Glargine Solostar 100 Units/Ml 3 Ml Pen) 5 units SC BID [facility] Stop: 10/25/20 21:29 Last Admin: 09/27/20 09:12 Dose: 5 units Documented by: Midodrine (Midodrine Hcl 10 Mg Tab) 10 mg PO TID@0800,1200,1700 [facility] Stop: 10/26/20 07:59 Last Admin: 09/27/20 12:43 Dose: 10 mg Documented by: Mirtazapine (Mirtazapine Tab 15 Mg Tab) 15 mg PO HS [facility] Stop: 10/25/20 21:29 Last Admin: 09/26/20 20:51 Dose: 15 mg Documented by: Miscellaneous Information (Piperacill/Tazobac Consult Active) 1 ea N/A UD PRN PRN Reason: Consult Stop: 10/25/20 21:29 Morphine Sulfate (Morphine Sulfate Cr 15 Mg Tabcr) 15 mg PO Q12H [facility] Stop: 10/09/20 21:29 Last Admin: 09/27/20 09:12 Dose: 15 mg Documented by: Nitroglycerin (Nitroglycerin Sl 0.4 Mg/Tab Tab) 0.4 mg SL UD PRN PRN Reason: Chest Pain Stop: 10/25/20 21:29 Ondansetron HCl (Ondansetron Inj 2 Mg/Ml 2 Ml Vial) 4 mg IV Q6H PRN PRN Reason: Nausea Stop: 10/25/20 21:29 Oxycodone/Acetaminophen (Oxycodone/Acetaminophen 5mg/325mg Tab) 1 tab PO Q6 PRN PRN Reason: Pain-Mild/Moderate Stop: 10/09/20 21:29 Last Admin: 09/27/20 06:19 Dose: 1 tab Documented by: Prochlorperazine (Prochlorperazine Maleate 10 Mg Tab) 10 mg PO Q6H PRN PRN Reason: Nausea Stop: 10/25/20 21:29
[2020-09-27] MEDS: MIRTAZAPINE TAB 15 MG TAB PO SCH (20:51)
[2020-09-28] MEDS: NSS + 20MEQ KCL 20 MEQ/1,000 ML BAG IV SCH ×2 (06:28→16:52)
[2020-09-28 07:39] LABS: Hematocrit (blood only) 22.4 % (42-52); Hemoglobin 7.1 g/dL (14.0-18.0); Mean Corpuscular Hemoglobin 29.1 pg (25-34); Mean Corpuscular Hgb Conc 31.7 g/dL (32-36); Mean Corpuscular Volume 91.8 fL (80-100); RDW Standard Deviation 54.4 fL (36.4-46.3); Red Blood Count 2.44 M/uL (4.7-6.1); White Blood Count 2.05 K/uL (4.8-10.8)
[2020-09-28] MEDS ORDERED: POTASSIUM CHLORIDE CRTAB 20 MEQ TABCR PO STA (08:10)
[2020-09-28 08:15] LABS: Creatinine Clr Calc Pharmacy 117.1 ml/min; Est GFR (African American) 121.6; Est GFR (Non-African American) 104.9
[2020-09-28] MEDS: INSULIN ASPART 100 UNITS/ML 3 ML PEN SC SCH ×4 (08:28→20:37)
[2020-09-28] MEDS: ENOXAPARIN 80 MG/0.8 ML SYR SQ SCH (08:30)
[2020-09-28] MEDS: INSULIN GLARGINE SOLOSTAR 100 UNITS/ML 3 ML PEN SC SCH ×2 (08:30→20:36)
[2020-09-28 08:31] LABS: Mean Platelet Volume 9.2 fL (7.4-10.4); Platelet Count 93 K/uL (130-400)
[2020-09-28] MEDS: FERROUS SULFATE 325 MG TAB PO SCH ×2 (08:31→20:35)
[2020-09-28] MEDS: CYANOCOBALAMIN 500 MCG TABLET (VITAMIN B-12) PO SCH (08:31)
[2020-09-28] MEDS: MIDODRINE HCL 10 MG TAB PO SCH ×3 (08:31→16:52)
[2020-09-28] MEDS: PIPERACILLIN/TAZOBACTAM 3.375 GM in DEXTROSE 5% 100 ML IV SCH (08:48)
[2020-09-28] MEDS: POTASSIUM CHLORIDE / WTR 10 MEQ/100 ML PLCT IV SCH ×2 (08:48→09:59)
[2020-09-28] MEDS: MoRPHine SULFATE CR 15 MG TABCR PO SCH ×2 (08:49→20:35)
[2020-09-28] MEDS: DOXYCYCLINE HYCLATE 100 MG in DEXTROSE 5% 100 ML IV SCH (11:23)
[2020-09-28] MEDS: DOXYCYCLINE HYCLATE 100 MG CAP PO SCH ×2 (12:00→19:19)
--- NOTE | 2020-09-28 14:57 | Hospitalist Progress Note ---
Date of Service September 28, 2020 Assessment & Plan (1) Gram-negative bacteremia: Presented with profound weakness without any fever Blood culture is growing gram-negative bacilli and further identification and sensitivities pending Likely source nonspecific proctocolitis Has been on intravenous Zosyn and doxycycline to cover respiratory pathogens as well Clinically indicated better today Blood culture grew Enterobacter cloacae which is sensitive to cephalosporins We will start intravenous ceftriaxone possible oral transition to Keflex on discharge Remains generally weak and we will get PT and OT evaluation (2) Proctocolitis: Possible sepsis Presented with fever, abdominal pain and generalized illness CT scan of the abdomen pelvis did show nonspecific colitis Has been started 1 intravenous vancomycin and Zosyn Doxycycline for possible respiratory infection (3) Colon cancer: He has stage IV colon cancer with metastasis to intrathoracic lymph node Status post colonic stent placement Ongoing chemotherapy and last chemo was on 09/20/2020 No acute symptoms (4) Pancytopenia: Secondary to chemo We will monitor CBC and electrolytes Hemoglobin went down to 7.1-we will recheck tomorrow if it is below 7 will give blood transfusion (5) DM type 2 (diabetes mellitus, type 2): Has been on SSI (6) DVT prophylaxis: Subcu Lovenox Admission and Anticipated Discharge Date Admission Date: September 25, 2020 Subjective 09/26/2020 The patient was seen and examined in telemetry unit Feels much better since admission Complains of some distention of the abdomen but bowel has moved Pain seems to be under control 09/27/2020 The patient was seen and examined in telemetry unit He complains some distention of the abdomen with pain Denies any fever and/or chills 09/28/2020 Patient was seen and examined in telemetry unit He remains generally weak but denies any fever no chills Denies any other symptoms Review of Systems Review of Systems: All systems reviewed and are unremarkable except as noted below Gastrointestinal: + abdominal pain and + bloating; no nausea and no vomiting Physical Exam Physical Exam: Lying in bed comfortably Constitutional: + ill appearing and average body habitus Eyes: PERRL, conjunctivae normal, anicteric sclerae ENMT: external ear and nose normal, oropharynx normal Neck: trachea midline, no thyromegaly Respiratory: no respiratory distress Auscultation: lungs clear to auscultation bilaterally Cardiovascular: Rate/Rhythm: regular rate and regular rhythm Heart Sounds: + murmur (2/6 ejection systolic murmur over aortic area) Gastrointestinal (Abdomen): Inspection/Auscultation: + abdomen distended and normal bowel sounds Percussion/Palpation: + abdomen tender (Mildly tender all over and mainly left lower quadrant) and abdomen soft Musculoskeletal: No acute arthritis involving any joint Neurologic: Alert, awake and oriented x3. Generally very weak and lethargic Results & Data Results & Data ([facility]) Vital Signs (Past 12 Hours) Vital Signs Temp Pulse Pulse Pulse Resp BP Pulse Ox 09/28/20 11:17 36.7 C 68 18 100/65 99 09/28/20 07:24 70 09/28/20 07:07 36.5 C 68 18 102/65 99 09/28/20 03:21 36.6 C 66 18 93/64 L 97 Laboratory Results Short CBC 09/28/20 Range/Units 06:45 WBC 2.05 L (4.8-10.8) K/uL Hgb 7.1 L (14.0-18.0) g/dL Hct 22.4 L (42-52) % Plt Count 93 L (130-400) K/uL BMP 09/28/20 06:45 Creatinine 0.64 Medications Administered Current Inpatient Medications Acetaminophen (Acetaminophen 325 Mg Tab) 650 mg PO Q4H PRN PRN Reason: Pain or Fever Stop: 10/25/20 21:29 Cyanocobalamin (Cyanocobalamin 500 Mcg Tablet (Vitamin B-12)) 500 mcg PO QAM [facility] Stop: 10/26/20 08:59 Last Admin: 09/28/20 08:31 Dose: 500 mcg Documented by: Diphenoxylate HCl/Atropine (Diphenoxylate/Atropine 2.5/0.025mg Tab) 1 tab PO QID PRN PRN Reason: Diarrhea Stop: 10/25/20 21:29 Doxycycline Hyclate (Doxycycline Hyclate 100 Mg Cap) 100 mg PO Q12@0700,1900 [facility]; Protocol Stop: 10/02/20 18:59 Last Admin: 09/28/20 12:00 Dose: 100 mg Documented by: Enoxaparin Sodium (Enoxaparin 80 Mg/0.8 Ml Syr) 80 mg SQ DAILY [facility] Stop: 10/26/20 08:59 Last Admin: 09/28/20 08:30 Dose: 80 mg Documented by: Ferrous Sulfate (Ferrous Sulfate 325 Mg Tab) 325 mg PO BID [facility] Stop: 10/25/20 21:29 Last Admin: 09/28/20 08:31 Dose: 325 mg Documented by: Heparin Sodium (Porcine) (Heparin 100 Unit/Ml 5ml Flush) 5 ml FLUSH PRN PRN PRN Reason: Flush Stop: 10/27/20 00:18 Hydromorphone HCl (Hydromorphone Inj 0.5 Mg/0.5 Ml Syr) 0.5 mg IV Q4H PRN PRN Reason: Pain Stop: 10/09/20 21:29 Hyoscyamine (Hyoscyamine Sulfate 0.125 Mg Tab) 0.125 mg PO Q6H PRN PRN Reason: Cramping Stop: 10/25/20 21:29 Potassium Chloride/Sodium Chloride (Normal Saline W/20 Meq Kcl) 20 meq in 1,000 mls @ 100 mls/hr IV .Q10H [facility] Stop: 10/27/20 10:44 Last Infusion: 09/28/20 11:20 Dose: 100 mls/hr Documented by: Ceftriaxone Sodium 2,000 mg/ (Dextrose) 70 mls @ 140 mls/hr IV Q24H [facility]; Protocol Stop: 10/10/20 15:59 Insulin Aspart (Insulin Aspart 100 Units/Ml 3 Ml Pen) 0 units SC ACHS [facility] Stop: 10/25/20 21:29 Last Admin: 09/28/20 11:24 Dose: Not Given Documented by: Insulin Glargine (Insulin Glargine Solostar 100 Units/Ml 3 Ml Pen) 5 units SC BID [facility] Stop: 10/25/20 21:29 Last Admin: 09/28/20 08:30 Dose: 5 units Documented by: Midodrine (Midodrine Hcl 10 Mg Tab) 10 mg PO TID@0800,1200,1700 [facility] Stop: 10/26/20 07:59 Last Admin: 09/28/20 12:00 Dose: 10 mg Documented by: Mirtazapine (Mirtazapine Tab 15 Mg Tab) 15 mg PO HS [facility] Stop: 10/25/20 21:29 Last Admin: 09/27/20 20:51 Dose: 15 mg Documented by: Morphine Sulfate (Morphine Sulfate Cr 15 Mg Tabcr) 15 mg PO Q12H [facility] Stop: 10/09/20 21:29 Last Admin: 09/28/20 08:49 Dose: 15 mg Documented by: Nitroglycerin (Nitroglycerin Sl 0.4 Mg/Tab Tab) 0.4 mg SL UD PRN PRN Reason: Chest Pain Stop: 10/25/20 21:29 Ondansetron HCl (Ondansetron Inj 2 Mg/Ml 2 Ml Vial) 4 mg IV Q6H PRN PRN Reason: Nausea Stop: 10/25/20 21:29 Oxycodone/Acetaminophen (Oxycodone/Acetaminophen 5mg/325mg Tab) 1 tab PO Q6 PRN PRN Reason: Pain-Mild/Moderate Stop: 10/09/20 21:29 Last Admin: 09/27/20 06:19 Dose: 1 tab Documented by: Prochlorperazine (Prochlorperazine Maleate 10 Mg Tab) 10 mg PO Q6H PRN PRN Reason: Nausea Stop: 10/25/20 21:29 (1) Colon cancer Colon location: unspecified part of colon Qualified Code(s): C18.9 - Malignant neoplasm of colon, unspecified
[2020-09-28] MEDS ORDERED: cefTRIAXone SODIUM 2,000 MG in DEXTROSE 5% 50 ML IV SCH (16:00)
[2020-09-28] MEDS: MIRTAZAPINE TAB 15 MG TAB PO SCH (20:35)
[2020-09-29] MEDS: NSS + 20MEQ KCL 20 MEQ/1,000 ML BAG IV SCH ×2 (02:45→14:03)
[2020-09-29] MEDS: DOXYCYCLINE HYCLATE 100 MG CAP PO SCH (07:57)
[2020-09-29] MEDS: MIDODRINE HCL 10 MG TAB PO SCH ×2 (07:57→12:03)
[2020-09-29] MEDS: CYANOCOBALAMIN 500 MCG TABLET (VITAMIN B-12) PO SCH (07:57)
[2020-09-29] MEDS: FERROUS SULFATE 325 MG TAB PO SCH (07:57)
[2020-09-29] MEDS: ENOXAPARIN 80 MG/0.8 ML SYR SQ SCH (07:58)
[2020-09-29] MEDS: INSULIN GLARGINE SOLOSTAR 100 UNITS/ML 3 ML PEN SC SCH (07:58)
[2020-09-29] MEDS: INSULIN ASPART 100 UNITS/ML 3 ML PEN SC SCH ×2 (07:59→12:03)
[2020-09-29] MEDS: MoRPHine SULFATE CR 15 MG TABCR PO SCH (08:03)
[2020-09-29] MEDS ORDERED: metroNIDAZOLE 500 MG TAB PO SCH (10:00)
[2020-09-29] MEDS ORDERED: CIPROFLOXACIN 500 MG TAB PO SCH (10:00)
[2020-09-29 10:23] LABS: Eosinophils % (auto) 4.5 %; Hemoglobin 8.4 g/dL (14.0-18.0); Lymphocytes # (auto) 0.73 K/uL (1.2-3.4); Lymphocytes % (auto) 33.2 %; Mean Corpuscular Hemoglobin 29.5 pg (25-34); Mean Corpuscular Hgb Conc 31.1 g/dL (32-36); Mean Corpuscular Volume 94.7 fL (80-100); Mean Platelet Volume 9.3 fL (7.4-10.4); Monocytes # (auto) 0.14 K/uL (0.11-0.59); Monocytes % (auto) 6.4 %; Neutrophils # (auto) 1.23 K/uL (1.4-6.5); Neutrophils % (auto) 55.9 %; Platelet Count 115 K/uL (130-400); RDW Standard Deviation 55.2 fL (36.4-46.3); Red Blood Count 2.85 M/uL (4.7-6.1)
[2020-09-29 10:51] LABS: BUN Creatinine Ratio 16.7 (10-20); Calcium 8.7 mg/dl (8.5-10.1); Creatinine Clr Calc Pharmacy 115.1 ml/min; Est GFR (African American) 120.1; Est GFR (Non-African American) 103.6; Magnesium 1.9 mg/dl (1.8-2.4); Phosphorus 2.7 mg/dl (2.5-4.9); Potassium 4.4 mmol/L (3.5-5.1)
--- NOTE | 2020-09-29 14:08 | Hospitalist Progress Note ---
Date of Service September 29, 2020 Assessment & Plan (1) Gram-negative bacteremia: Presented with profound weakness without any fever Blood culture is growing gram-negative bacilli and further identification and sensitivities pending Likely source nonspecific proctocolitis Has been on intravenous Zosyn and doxycycline to cover respiratory pathogens as well Clinically indicated better today Blood culture grew Enterobacter cloacae which is sensitive to cephalosporins Remains generally weak and we will get PT and OT evaluation Intravenous antibiotics are changed to oral Cipro and Flagyl Cipro will be continued to finish the course of a total of 14 days Flagyl to finish the course of 10 days in total (2) Proctocolitis: Possible sepsis Presented with fever, abdominal pain and generalized illness CT scan of the abdomen pelvis did show nonspecific colitis Has been started 1 intravenous vancomycin and Zosyn Doxycycline for possible respiratory infection-doxycycline has been stopped Will be discharged home on Cipro and Flagyl (3) Colon cancer: He has stage IV colon cancer with metastasis to intrathoracic lymph node Status post colonic stent placement Ongoing chemotherapy and last chemo was on 09/20/2020 No acute symptoms (4) Pancytopenia: Secondary to chemo We will monitor CBC and electrolytes Hemoglobin went down to 7.1-we will recheck tomorrow if it is below 7 will give blood transfusion Remains stable (5) DM type 2 (diabetes mellitus, type 2): Has been on SSI (6) DVT prophylaxis: Subcu Lovenox We will discharge home this afternoon Admission and Anticipated Discharge Date Admission Date: September 25, 2020 Subjective 09/26/2020 The patient was seen and examined in telemetry unit Feels much better since admission Complains of some distention of the abdomen but bowel has moved Pain seems to be under control 09/27/2020 The patient was seen and examined in telemetry unit He complains some distention of the abdomen with pain Denies any fever and/or chills 09/28/2020 Patient was seen and examined in telemetry unit He remains generally weak but denies any fever no chills Denies any other symptoms 09/29/2020 The patient was seen and examined in telemetry unit He has been feeling a lot better today and denies any abdominal pain, distention, nausea and or vomiting No fever and no chills Has been moving around without any symptoms Review of Systems Review of Systems: All systems reviewed and are unremarkable except as noted below Gastrointestinal: + bloating; no abdominal pain, no nausea and no vomiting Physical Exam Physical Exam: Lying in bed comfortably Constitutional: + ill appearing and average body habitus Eyes: PERRL, conjunctivae normal, anicteric sclerae ENMT: external ear and nose normal, oropharynx normal Neck: trachea midline, no thyromegaly Respiratory: no respiratory distress Auscultation: lungs clear to auscult ation bilaterally Cardiovascular: Rate/Rhythm: regular rate and regular rhythm Heart Sounds: + murmur (2/6 ejection systolic murmur over aortic area) Gastrointestinal (Abdomen): Inspection/Auscultation: + abdomen distended and normal bowel sounds Percussion/Palpation: + abdomen tender (Mildly tender all over and mainly left lower quadrant) and abdomen soft Musculoskeletal: No acute arthritis in any Neurologic: Alert, awake and oriented x3. Generally weak but no focal sensory and or motor deficit appreciated Results & Data Results & Data ([facility]) Vital Signs (Past 12 Hours) Vital Signs Temp Pulse Pulse Pulse Resp BP Pulse Ox 09/29/20 11:34 36.5 C 69 16 106/69 99 09/29/20 08:00 70 09/29/20 07:01 36.4 C L 66 17 111/73 99 09/29/20 04:14 36.6 C 68 18 101/66 98 Laboratory Results Short CBC 09/29/20 Range/Units 10:09 WBC 2.20 L (4.8-10.8) K/uL Hgb 8.4 L (14.0-18.0) g/dL Hct 27.0 L (42-52) % Plt Count 115 L (130-400) K/uL BMP 09/29/20 10:09 Sodium 144 Potassium 4.4 Chloride 116 H Carbon Dioxide 25 BUN 11 Creatinine 0.66 Glucose 122 H Calcium 8.7 Medications Administered Current Inpatient Medications Acetaminophen (Acetaminophen 325 Mg Tab) 650 mg PO Q4H PRN PRN Reason: Pain or Fever Stop: 10/25/20 21:29 Ciprofloxacin (Ciprofloxacin 500 Mg Tab) 500 mg PO BID [facility]; Protocol Stop: 10/09/20 09:59 Last Admin: 09/29/20 10:18 Dose: 500 mg Documented by: Cyanocobalamin (Cyanocobalamin 500 Mcg Tablet (Vitamin B-12)) [facility] [place] Stop: 10/26/20 08:59 Last Admin: 09/29/20 07:57 Dose: 500 mcg Documented by: Diphenoxylate HCl/Atropine (Diphenoxylate/Atropine 2.5/0.025mg Tab) 1 tab PO QID PRN PRN Reason: Diarrhea Stop: 10/25/20 21:29 Doxycycline Hyclate (Doxycycline Hyclate 100 Mg Cap) 100 mg PO Q12@0700,1900 [facility]; Protocol Stop: 10/02/20 18:59 Last Admin: 09/29/20 07:57 Dose: 100 mg Documented by: Enoxaparin Sodium (Enoxaparin 80 Mg/0.8 Ml Syr) 80 mg SQ DAILY [facility] Stop: 10/26/20 08:59 Last Admin: 09/29/20 07:58 Dose: 80 mg Documented by: Ferrous Sulfate (Ferrous Sulfate 325 Mg Tab) 325 mg PO BID [facility] Stop: 10/25/20 21:29 Last Admin: 09/29/20 07:57 Dose: 325 mg Documented by: Heparin Sodium (Porcine) (Heparin 100 Unit/Ml 5ml Flush) 5 ml FLUSH PRN PRN PRN Reason: Flush Stop: 10/27/20 00:18 Hydromorphone HCl (Hydromorphone Inj 0.5 Mg/0.5 Ml Syr) 0.5 mg IV Q4H PRN PRN Reason: Pain Stop: 10/09/20 21:29 Hyoscyamine (Hyoscyamine Sulfate 0.125 Mg Tab) 0.125 mg PO Q6H PRN PRN Reason: Cramping Stop: 10/25/20 21:29 Potassium Chloride/Sodium Chloride (Normal Saline W/20 Meq Kcl) 20 meq in 1,000 mls @ 100 mls/hr IV .Q10H [facility] Stop: 10/27/20 10:44 Last Admin: 09/29/20 14:03 Dose: Not Given Documented by: Insulin Aspart (Insulin Aspart 100 Units/Ml 3 Ml Pen) 0 units SC ACHS [facility] Stop: 10/25/20 21:29 Last Admin: 09/29/20 12:03 Dose: Not Given Documented by: Insulin Glargine (Insulin Glargine Solostar 100 Units/Ml 3 Ml Pen) 5 units SC BID [facility] Stop: 10/25/20 21:29 Last Admin: 09/29/20 07:58 Dose: 5 units Documented by: Metronidazole (Metronidazole 500 Mg Tab) 500 mg PO BID [facility]; Protocol Stop: 10/09/20 09:59 Last Admin: 09/29/20 10:18 Dose: 500 mg Documented by: Midodrine (Midodrine Hcl 10 Mg Tab) 10 mg PO TID@0800,1200,1700 [facility] Stop: 10/26/20 07:59 Last Admin: 09/29/20 12:03 Dose: 10 mg Documented by: Mirtazapine (Mirtazapine Tab 15 Mg Tab) 15 mg PO HS [facility] Stop: 10/25/20 21:29 Last Admin: 09/28/20 20:35 Dose: 15 mg Documented by: Morphine Sulfate (Morphine Sulfate Cr 15 Mg Tabcr) 15 mg PO Q12H [facility] Stop: 10/09/20 21:29 Last Admin: 09/29/20 08:03 Dose: 15 mg Documented by: Nitroglycerin (Nitroglycerin Sl 0.4 Mg/Tab Tab) 0.4 mg SL UD PRN PRN Reason: Chest Pain Stop: 10/25/20 21:29 Ondansetron HCl (Ondansetron Inj 2 Mg/Ml 2 Ml Vial) 4 mg IV Q6H PRN PRN Reason: Nausea Stop: 10/25/20 21:29 Oxycodone/Acetaminophen (Oxycodone/Acetaminophen 5mg/325mg Tab) 1 tab PO Q6 PRN PRN Reason: Pain-Mild/Moderate Stop: 10/09/20 21:29 Last Admin: 09/27/20 06:19 Dose: 1 tab Documented by: Prochlorperazine (Prochlorperazine Maleate 10 Mg Tab) 10 mg PO Q6H PRN PRN Reason: Nausea Stop: 10/25/20 21:29 (1) Colon cancer Colon location: unspecified part of colon Qualified Code(s): C18.9 - Malignant neoplasm of colon, unspecified
--- NOTE | 2020-09-30 11:26 | Discharge Summary ---
Date of Service September 30, 2020 Admission HPI Per Admitting Provider DICTATED BY: Joshua Hernandez MD DATE OF ADMISSION: 09/25/2020 CHIEF COMPLAINT: Fever, illness. 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 The patient was recently in the hospital, admitted on 09/03/2020 and discharged on 09/06/2020. During the hospital stay, he was treated for pyelonephritis and pneumonia with antibiotics and was diagnosed with left lower extremity acute deep venous thrombosis. He was treated with heparin and discharged on Lovenox and he also was placed on midodrine for hypotension. He has 2 overlapping colonic stents to the left side of the colon. The patient lives with daughter and ambulates sometimes with a walker, sometimes with a cane. Appetite is not that great. Last about 1 week he was getting fever in the evening time. He was told probably from inflammation from his colonic stent, but his fevers got worse and he was shaking chills, for which daughter brought him to the hospital today. In the ER, his temperature spike was 39.4, tachycardia with pulse 108, blood pressure is okay, saturating fine, leukopenia, with 3.32 white count, platelets are 109. Lactate is pending. He is complaining of lower abdominal pain. CT of the abdomen and pelvis was done in the ER showing stable position of colonic stents located in the descending sigmoid junction, persistent narrowing of the colon at the level of stent; however, there is decreased amount of upstream colonic distention and also nonspecific proctocolitis. Progressive metastatic disease manifested by increased size of the pulmonary nodules with increase of numerous abdominal lymph nodes, cholelithiasis, unchanged gallbladder wall thickening, nonobstructing left nephrolithiasis. Chest x-ray: No acute process. The patient is requiring several blankets to keep himself warm because of his having chills, complaints of headaches, mild blurred vision, no earache, has runny nose last few days, has dry cough the last few days, no dysphagia, no chest pain, no shortness of breath. Has nausea, no vomiting, moved small amount of bowels today morning. No blood in the stools or black stools. No hematuria, no burning micturition, no swelling in the legs. No rash. No recent weight gain or weight loss. Admission Exam Per Admitting Provider GENERAL: The patient is of moderate build, not in acute distress. VITAL SIGNS: Temperature 39.4, pulse 108, respiratory rate 24, blood pressure 113/96, oxygen 100% on room air. HEENT: Pupils equal, round, reactive to light. Oral mucosa moist. NECK: No JVD. No neck masses seen. CARDIOVASCULAR: S1, S2 heard, regular rate and rhythm, no murmur, no gallop. RESPIRATORY: Normal AP diameter. No accessory muscle use. Mild bibasilar crackles. No wheezing. A-port seen in the left side of the chest. No redness or drainage seen from the A-port site. A-port site seems clean. ABDOMEN: Soft, bowel sounds present, nontender. No distention, no guarding, no rigidity. CENTRAL NERVOUS SYSTEM: Cranial nerves II-XII grossly intact, nonfocal. EXTREMITIES: No edema, no erythema. Principal Diagnosis Enterobacter cloacae bacteremia, acute proctocolitis, colon cancer status post stent, pancytopenia, type 2 diabetes Discharge Exam Constitutional + ill appearing and average body habitus Eyes PERRL, conjunctivae normal, anicteric sclerae ENMT external ear and nose normal, oropharynx normal Neck trachea midline, no thyromegaly Respiratory no respiratory distress Auscultation: lungs clear to auscultation bilaterally Cardiovascular Rate/Rhythm: regular rate and regular rhythm Heart Sounds: + murmur (2/6 ejection systolic murmur over aortic area) Gastrointestinal (Abdomen) Inspection/Auscultation: + abdomen distended and normal bowel sounds Percussion/Palpation: + abdomen tender (Mildly tender all over and mainly left lower quadrant) and abdomen soft Discharge Data Allergies Allergy/AdvReac Type Severity Reaction Status Date / Time No Known Allergies Allergy Verified 09/25/20 21:02 Consultations 09/25/20 19:36 ED Decision to Admit Stat Ordered Studies 09/25/20 19:24 CT abd pelvis IV con only Stat Hospital Course (1) Gram-negative bacteremia: Presented with profound weakness without any fever Blood culture is growing gram-negative bacilli and further identification and sensitivities pending Likely source nonspecific proctocolitis Has been on intravenous Zosyn and doxycycline to cover respiratory pathogens as well Clinically indicated better today Blood culture grew Enterobacter cloacae which is sensitive to cephalosporins Remains generally weak and we will get PT and OT evaluation Intravenous antibiotics are changed to oral Cipro and Flagyl Cipro will be continued to finish the course of a total of 14 days Flagyl to finish the course of 10 days in total (2) Proctocolitis: Possible sepsis Presented with fever, abdominal pain and generalized illness CT scan of the abdomen pelvis did show nonspecific colitis Has been started 1 intravenous vancomycin and Zosyn Doxycycline for possible respiratory infection-doxycycline has been stopped Will be discharged home on Cipro and Flagyl (3) Colon cancer: He has stage IV colon cancer with metastasis to intrathoracic lymph node Status post colonic stent placement Ongoing chemotherapy and last chemo was on 09/20/2020 No acute symptoms (4) Pancytopenia: Secondary to chemo We will monitor CBC and electrolytes Hemoglobin went down to 7.1-we will recheck tomorrow if it is below 7 will give blood transfusion Remains stable (5) DM type 2 (diabetes mellitus, type 2): Has been on SSI (6) DVT prophylaxis: Subcu Lovenox We will discharge home this afternoon Total Time Total Time Spent Total Time Spent (In Minutes): 35 minutes Total Time Includes: Examination of the Patient, Discharge Planning, Medication Reconciliation and Communication With Other Providers Discharge Plan Discharge Items Patient Disposition: Home - Self-Care Reason For Visit: FEVER, NAUSEA, ABDOMINAL PAIN Discharge Diagnosis: Enterobacter cloacae bacteremia, acute proctocolitis, colon cancer status post stent, pancytopenia, type 2 diabetes Condition on Discharge: Fair Activity: Resume your previous activity Non-emergency contact: Primary Care Provider Call non-emergency contact if: you have any medication questions and your symptoms worsen Follow-up/Referrals: Duong Matt MD [Primary Care Provider] - (Date & Time 10/03/2020 11:20 AM Provider Duong Matt MD Department Internal Medicine [facility] ) Diet: Carb Consistent or DM2 Addtl Attending Provider Instructions: Please take precautions to avoid fall Finish your course of antibiotic as directed Pending Studies at Discharge: No Stand-Alone Forms: My [employer], Smoking Cessation Medications and DC Order Prescriptions: New metronidazole 500 mg Tablet 500 mg PO BID 5 Days Qty: 10 RF: 0 ciprofloxacin HCl 500 mg Tablet 500 mg PO BID 10 Days Qty: 20 RF: 0 Lactinex 1 million cell tablet,chewable 1 tab PO TID Qty: 30 RF: 0 Continued pioglitazone [Actos] 30 mg Tablet 30 mg PO QAM RF: 0 prochlorperazine maleate [Compazine] 10 mg tablet 10 mg PO AMHS PRN (Reason: Nausea) RF: 0 oxycodone-acetaminophen 5-325 mg Tablet 1 tab PO Q6 PRN (Reason: Pain-Mild/Moderate) RF: 0 mirtazapine 15 mg tablet 15 mg PO HS RF: 0 ferrous sulfate 325 mg (65 mg iron) Tablet 325 mg PO BID RF: 0 diphenoxylate-atropine 2.5-0.025 mg tablet 1 tab PO QID PRN (Reason: Diarrhea) RF: 0 hyoscyamine sulfate [Levsin] 0.125 mg tablet 0.125 mg PO Q6H PRN (Reason: Cramping) RF: 0 cyanocobalamin (vitamin B-12) [Vitamin B-12] 500 mcg Tablet 500 mcg PO QAM RF: 0 morphine 15 mg tablet extended release 15 mg PO Q12H RF: 0 ondansetron HCl 8 mg tablet 8 mg PO Q8H PRN (Reason: Nausea And Vomiting) RF: 0 midodrine 10 mg Tablet 10 mg PO TID@0800,1200,1700 30 Days Qty: 90 RF: 3 enoxaparin [Lovenox] 80 mg/0.8 mL syringe 80 mg subcut DAILY 30 Days Qty: 24 RF: 0 sennosides [senna] 8.6 mg Tablet 8.6 mg PO DAILY RF: 0 magnesium hydroxide [Milk of Magnesia] 400 mg/5 mL Suspension 30 ml PO HS RF: 0 docusate sodium [Colace] 100 mg Capsule 100 mg PO BID RF: 0 Discharge Orders: Discharge Order (Routine); Ordered 09/29/20 Ordered By: Natalya Ahmadi/Other Patient Handouts: Managing Type 2 Diabetes, Managing Diabetes: The A1C Test Admission Data Admit Date/Time: 09/25/20 20:46 Attending Provider: Natalya Ellington Admit Provider: Joshua Hernandez Primary Care Provider: Duong Matt Other Providers: Joshua Hernandez Other Interventions: Discharge Summary Assessment (RN) Last Done: 09/29/20 14:53
--- NOTE | 2020-10-04 09:09 | Coding Query ---
SEPSIS To promote full compliance with coding requirements relating to patient care, physician participation is requested in all cases of parts sales manager uncertainty. Please assist us with the question(s) below: In responding to this query, please exercise your independent professional judgement. The fact that a question is asked does not imply that any particular answer is desired or expected. We appreciate your clarification on this issue. Throughout the medical record, you have clearly documented a localized infection and your patient has clinical evidence of a generalized sepsis or severe sepsis. The term urosepsis is a nonspecific entity and is coded as an UTI. If the patient has sepsis, severe sepsis, from an urinary source or some other source, please clarify in your response below. The medical record reflects the following clinical findings: Patient admitted with proctocolitis/bacteria/sepsis. Progress notes/DS document both Sepsis and Bacteremia. Please check below the diagnosis that was treated in this patient with colon cancer and pancytopenia. Thanks for your assist. Margarito Dave [facility] ____ ( )Bacteremia (Nonspecific laboratory finding of bacteria in the blood) Specify Organism ( ) Present on Admission ( ) Not present on admission ( ) Unable to clinically determine ( ) Septicemia (Systemic disease associated with the presence of pathogenic microorganisms in the blood): Specify Organism ( ) Present on Admission ( ) Not present on admission ( ) Unable to clinically determine ( ) Sepsis Specify Organism Specify Associated Condition/Diagnosis ( ) Present on Admission ( ) Not present on admission ( ) Unable to clinically determine ( ) Severe Sepsis (Sepsis associated with acute organ dysfunction) Specify Organism Specify Associated Condition/Diagnosis ( ) Present on Admission ( ) Not present on admission ( ) Unable to clinically determine ( ) Septic Shock (Severe sepsis with acute circulatory failure, unexplained by other causes) ( ) Present on Admission ( ) Not present on admission ( ) Unable to clinically determine ( +) Other, patient has: Possible Sepsis has been documented in progress note. Enterococcal Cl[place]aca Bacteremia has been documented as well.No septic shock. MTDD
== END 2020-09-29 15:15 | disposition home or self-care (01) | DRG 871 ==
LOC: ED 17:37 → EDINP 20:46 → 2S 21:30

== ENCOUNTER 2020-10-27 20:32 | Inpatient (IN) ==
[2020-10-27] MEDS ORDERED: MoRPHine SULFATE 4 MG/ML 1 ML CARP\\VIAL IV STA (23:02)
--- NOTE | 2020-10-27 23:31 | Emergency Department Note ---
History of Present Illness General Chief complaint: Illness Stated complaint: CHEST PAIN, FEVER, WEAKNESS Time Seen by Provider: 10/27/20 22:57 Source: patient and family Mode of arrival: ambulatory Limitations: no limitations History of Present Illness Provider complaint: Abdominal pain Onset (ago): day(s) 3 Location: abdomen Radiation: non-radiation Severity: moderate Pain Consistency: + constant Maximum Pain Intensity: 6 Current Pain Intensity: 6 Quality: + constant Relieved By: + none Exacerbated By: + none Associated symptoms: + fever/chills, + loss of appetite, + malaise and + other (Constipation) This is a 60-year-old male presents emergency department complaining of 2 days of worsening constant abdominal pain. Patient is currently receiving c hemotherapy for colon cancer. Patient has been taking chemotherapy intermittently over the last 2 years according to family at bedside. Patient states his last chemo treatment was on Friday. His oncologist is Dr. Meraz. States he does have a history of constipation had over the last 3 to 4 days had had smaller harder bowel movements, however pain did not start until morning. Patient states this evening he also developed a fever up to 100. Patient states he does not have an appetite, has not had vomiting. Denies any black or bloody stools. Denies rash or sores. No other sick contact at home. Daughter states only recent medication change was an increase in his Lovenox dos ing as he does have known blood clots. No other change in diet. Pt seen during a time of high acuity and national emergency pandemic while wearing PPE. Home Medications Medication Instructions Recorded Confirmed Type pioglitazone [Actos] 30 mg PO QAM 04/18/18 10/27/20 History ferrous sulfate 325 mg PO BID 10/02/18 10/27/20 History oxycodone-acetaminophen 1 tab PO Q6 PRN 12/27/19 10/27/20 History prochlorperazine maleate 10 mg PO AMHS PRN 12/27/19 10/27/20 History [Compazine] cyanocobalamin (vitamin B-12) 500 mcg PO QAM 02/11/20 10/27/20 History [Vitamin B-12] diphenoxylate-atropine 1 tab PO QID PRN 02/11/20 10/27/20 History hyoscyamine sulfate [Levsin] 0.125 mg PO Q6H PRN 02/11/20 10/27/20 History morphine 15 mg PO Q12H 04/01/20 10/27/20 History ondansetron HCl 8 mg PO Q8H PRN 05/06/20 10/27/20 History mirtazapine 15 mg PO HS 06/23/20 10/27/20 History midodrine 10 mg PO TID@0800,1200,1700 30 08/29/20 10/27/20 Rx Days #90 tab docusate sodium [Colace] 100 mg PO BID 09/25/20 10/27/20 History magnesium hydroxide [Milk of 30 ml PO HS 09/25/20 10/27/20 History Magnesia] sennosides [senna] 8.6 mg PO DAILY 09/25/20 10/27/20 History Lactobacillus acidoph-L.bulgar 1 tab PO TID #30 tab 09/29/20 10/27/20 Rx [Lactinex] enoxaparin 90 mg SUBCUT QAM 10/27/20 10/27/20 History Allergies Allergy/AdvReac Type Severity Reaction Status Date / Time No Known Allergies Allergy Verified 10/27/20 22:34 Past Med/Surg History Medical History (Updated 10/28/20 @ 23:49 by Katya Travis DO) Acute lower GI bleeding Anxiety C. difficile colitis hx ~2017. 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 Depression Diverticulitis of colon with perforation NO SURGERY DM type 2 (diabetes mellitus, type 2) Dyslipidemia Immunocompromised Kidney stones Obesity Osteoarthritis Pancytopenia Follows with heme Splenomegaly r/t chemotherapy Surgical History History of colonoscopy History of cystoscopy STONE REMOVAL WITH STENT PLACED History of esophagogastroduodenoscopy (EGD) History of tooth extraction History of vascular access device RIGHT UPPER CHEST PLACED 09/2018 Hx of hernia repair Hx of tonsillectomy Family History Mother , Age 62 Breast cancer Father , Age 62 Stroke Sister Family history of diabetes mellitus Brother Family history of diabetes mellitus Brother Family history of diabetes mellitus Other No family history of adverse response to anesthesia Social History Smoking Status: Former smoker Tobacco Type: Cigarettes Second Hand Exposure: No; Do You Dip or Chew Tobacco: No; Tobacco Cessation Education Requested by Patient: No Hx Alcohol Use: No Hx Substance Use: No Preferred Language: Frisian Communication Ability: Effective Visual Impairment: No Limitations Dist[employer] Required: No Beliefs That Will Affect Care: None marital status: Current Living Situation: Family Current Living Situation Comment: dtr How many Children do You have: 1 Other Information That Helps Us Care for You: No Feels Safe at Home: Yes Safety Concerns: Feels Safe At This Time Assistive Devices: Glasses Review of Systems See HPI for pertinent positives & negatives. and A total of 10 systems reviewed and were otherwise negative Physical Exam Vital Signs Vital Signs - 24 hr 10/27/20 23:50 10/27/20 23:52 10/28/20 00:26 Temperature 36.9 C Temperature Source Oral Pulse Rate 73 Pulse Rate from SpO2 Sensor Respiratory Rate 14 Blood Pressure 100/61 Blood Pressure Mean 74 Pulse Oximetry 98 98 Oxygen Delivery Method Room Air 10/28/20 01:00 10/28/20 02:00 10/28/20 02:30 Temperature Temperature Source Pulse Rate 71 69 70 Pulse Rate from SpO2 Sensor Respiratory Rate 14 16 14 Blood Pressure 108/64 102/70 116/70 Blood Pressure Mean 78 80 85 Pulse Oximetry 98 100 98 Oxygen Delivery Method 10/28/20 03:00 10/28/20 03:30 10/28/20 04:00 Temperature Temperature Source Pulse Rate 73 72 74 Pulse Rate from SpO2 Sensor 79 Respiratory Rate 14 15 15 Blood Pressure 100/64 103/66 102/66 Blood Pressure Mean 76 78 78 Pulse Oximetry 98 97 97 Oxygen Delivery Method 10/28/20 04:44 Temperature Temperature Source Pulse Rate 70 Pulse Rate from SpO2 Sensor Respiratory Rate 15 Blood Pressure 97/62 L Blood Pressure Mean 73 Pulse Oximetry 100 Oxygen Delivery Method GENERAL: alert, well appearing, well nourished, no distress, non-toxic EYE EXAM: normal conjunctiva, PERRL and EOM's grossly intact OROPHARYNX: no exudate, no erythema, lips, buccal mucosa, and tongue normal and mucous membranes are moist NECK: supple, no nuchal rigidity, no adenopathy, non-tender LUNGS: Clear to auscultation. Normal chest wall mechanics, no w/r/r HEART: no murmurs, S1 normal and S2 normal ABDOMEN: abdomen soft, generalized abdominal tenderness with palpation, mild distention, normo-active bowel sounds, no masses, no rebound or guarding. BACK: Back is symmetrical on inspection and there is no deformity, no midline tenderness, no CVA tenderness. SKIN: no rashes and no bruising UPPER EXTREMITIES: upper extremities are grossly normal. FROM, nml pulses b/l. LOWER EXTREMITIES: No pitting edema. FROM, nml pulses b/l. NEURO EXAM: Normal sensorium, cranial nerves II-XII grossly intact, normal speech, no gross weakness of arms, no gross weakness of legs. Gross sensation intact. Course Course 0200: Pt updated on results. 221: Discussed with Dr. Bo. Administered Medications Cyanocobalamin (Cyanocobalamin 500 Mcg Tablet (Vitamin B-12)) 500 mcg PO QAM [facility] Stop: 11/27/20 08:59 Last Admin: 10/28/20 10:26 Dose: 500 mcg Documented by: [id number] Doxycycline Hyclate (Doxycycline Hyclate 100 Mg Cap) 100 mg PO BID [facility]; Protocol Stop: 11/04/20 20:59 Last Admin: 10/28/20 21:58 Dose: 100 mg Documented by: [id number] Sodium Chloride (Nss 1000ml) 1,000 mls @ 50 mls/hr IV .Q20H [facility] Stop: 11/27/20 08:36 Last Admin: 10/28/20 10:19 Dose: 50 mls/hr Documented by: [id number] Heparin Sodium/Dextrose (Heparin Sodium/Dextrose) 25,000 units in 500 mls @ 25 mls/hr IV .Q20H [facility]; Protocol Stop: 11/27/20 08:36 Last Titration: 10/28/20 21:15 Dose: 1,200 units/hr, 24 mls/hr Documented by: [id number] Cosigned by: [id number] Titration: 10/28/20 19:10 Dose: 950 units/hr, 19 mls/hr Documented by: [id number] Cosigned by: [id number] Admin: 10/28/20 13:13 Dose: 950 units/hr, 19 mls/hr Documented by: [id number] Cosigned by: [id number] Piperacillin Sod/Tazobactam (Sod 3.375 gm/ Dextrose) 115 mls @ 28.75 mls/hr IV Q8H [facility]; Protocol Stop: 11/07/20 08:59 Last Infusion: 10/28/20 21:19 Dose: 0 mls/hr Documented by: [id number] Admin: 10/28/20 16:57 Dose: 28.8 mls/hr Documented by: [id number] Infusion: 10/28/20 14:25 Dose: 0 mls/hr Documented by: [id number] Admin: 10/28/20 10:22 Dose: 28.8 mls/hr Documented by: [id number] Lactobacillus Acidoph/Casei/Rhamnos (Advanced Probiotic 1250 Mg Capsule) 2 cap PO DAILY [facility] Stop: 11/27/20 08:59 Last Admin: 10/28/20 10:26 Dose: 2 cap Documented by: [id number] Midodrine (Midodrine Hcl 10 Mg Tab) 10 mg PO TID@0800,1200,1700 [facility] Stop: 11/27/20 08:59 Last Admin: 10/28/20 16:53 Dose: 10 mg Documented by: [id number] Admin: 10/28/20 13:09 Dose: 10 mg Documented by: [id number] Admin: 10/28/20 10:27 Dose: 10 mg Documented by: [id number] Mirtazapine (Mirtazapine Tab 15 Mg Tab) 15 mg PO HS [facility] Stop: 11/27/20 20:59 Last Admin: 10/28/20 21:58 Dose: 15 mg Documented by: [id number] Morphine Sulfate (Morphine Sulfate Cr 15 Mg Tabcr) 15 mg PO Q12H [facility] Stop: 11/11/20 08:59 Last Admin: 10/28/20 21:57 Dose: 15 mg Documented by: [id number] Admin: 10/28/20 10:35 Dose: 15 mg Documented by: [id number] Senna/Docusate Sodium (Docusate Sodium/Senna 50/8.6mg Tab) 1 tab PO BID [facility] Stop: 11/27/20 08:59 Last Admin: 10/28/20 21:57 Dose: 1 tab Documented by: [id number] Admin: 10/28/20 10:26 Dose: 1 tab Documented by: [id number] Discontinued Medications Sodium Chloride (Nss 1000ml) 1,000 mls @ 125 mls/hr IV .Q8H [facility] Stop: 11/26/20 23:14 Last Infusion: 10/28/20 04:25 Dose: 0 mls/hr Documented by: [id number] Admin: 10/27/20 23:47 Dose: 125 mls/hr Documented by: [id number] Piperacillin Sod/Tazobactam Sod (Zosyn) 4.5 gm in 120 mls @ 240 mls/hr IV NOW ONE Stop: 10/28/20 00:57 Last Infusion: 10/28/20 01:31 Dose: 0 mls/hr Documented by: [id number] Admin: 10/28/20 01:01 Dose: 240 mls/hr Documented by: [id number] Vancomycin HCl 2,000 mg/ (Sodium Chloride) 540 mls @ 200 mls/hr IV NOW ONE Stop: 10/28/20 04:44 Last Infusion: 10/28/20 05:17 Dose: 0 mls/hr Documented by: [id number] Admin: 10/28/20 02:34 Dose: 200 mls/hr Documented by: [id number] Magnesium Sulfate/Dextrose (Magnesium Sulfate / D5w) 1 gm in 100 mls @ 50 mls/hr IV ONE ONE Stop: 10/28/20 04:45 Last Infusion: 10/28/20 05:12 Dose: 0 mls/hr Documented by: [id number] Admin: 10/28/20 03:09 Dose: 50 mls/hr Documented by: [id number] Doxycycline Hyclate 100 mg/ (Dextrose) 110 mls @ 50 mls/hr IV ONE ONE Stop: 10/28/20 11:11 Last Infusion: 10/28/20 13:29 Dose: 0 mls/hr Documented by: [id number] Admin: 10/28/20 10:58 Dose: 50 mls/hr Documented by: [id number] Heparin Sodium (Porcine) 4,500 (units/ Syringe) 4.5 mls @ 10 mls/min IV 2114 ONE Stop: 10/28/20 21:16 Last Admin: 10/28/20 21:57 Dose: 10 mls/min Documented by: [id number] Cosigned by: [id number] Insulin Aspart (Insulin Aspart 100 Units/Ml 3 Ml Pen) 0 units SC ACHS [facility] Stop: 11/27/20 08:54 Last Admin: 10/28/20 18:40 Dose: Not Given Documented by: [id number] Admin: 10/28/20 13:10 Dose: 1 units Documented by: [id number] Cosigned by: [id number] Admin: 10/28/20 10:38 Dose: Not Given Documented by: [id number] Ioversol (Optiray 300 100ml) 85 ml IV ONCE ONE Stop: 10/28/20 00:48 Last Admin: 10/28/20 00:52 Dose: 100 ml Documented by: [id number] Midodrine (Midodrine Hcl 2.5 Mg Tab) 5 mg PO NOW STA Stop: 10/28/20 05:12 Last Admin: 10/28/20 05:53 Dose: 5 mg Documented by: [id number] Morphine Sulfate (Morphine Sulfate 4 Mg/Ml 1 Ml Carp\Vial) 4 mg IV NOW STA Stop: 10/27/20 23:03 Last Admin: 10/27/20 23:46 Dose: 4 mg Documented by: [id number] Polyethylene Glycol/Electrolytes (Lavage Solution 4000ml) 8 dose PO TODAY@1800 [facility] Stop: 10/28/20 23:00 Last Admin: 10/28/20 17:52 Dose: 8 dose Documented by: [id number] Medical Decision Making Differential Diagnosis Differential diagnoses includes but is not limited to gastritis, peptic ulcer disease, GERD, gallbladder disease, pancreatitis, small bowel obstruction, acute coronary syndrome, pericarditis, ischemic bowel, irritable bowel disease, irritable bowel syndrome, appendicitis, diverticulitis, malignancy, hernia, urinary tract infection, torsion, [/ectopic (if female)], perforation, trauma, infectious. Medical Records Attestation: I reviewed the patient's medical records. Home Medications Current Medication List: was personally reviewed by me Laboratory Data Attestation: I reviewed the patient's lab results. Result diagrams: 10/28/20 11:59 10/28/20 09:04 Lab Results 10/27/20 10/27/20 10/27/20 Range/Units 23:31 23:31 23:31 WBC 3.72 L (4.8-10.8) K/uL RBC 2.81 L (4.7-6.1) M/uL Hgb 8.3 L (14.0-18.0) g/dL Hct 26.0 L (42-52) % MCV 92.5 (80-100) fL MCH 29.5 (25-34) pg MCHC 31.9 L (32-36) g/dL RDW Std Deviation 53.7 H (36.4-46.3) fL RDW Coeff of [place] 15.8 H (11.5-14.5) % Plt Count 97 L (130-400) K/uL MPV 8.9 (7.4-10.4) fL Immature Gran % (Auto) 0.0 % Neut % (Auto) 73.1 % Lymph % (Auto) 21.8 % [place] % (Auto) 4.0 % Eos % (Auto) 0.8 % Baso % (Auto) 0.3 % Neut # (Auto) 2.72 (1.4-6.5) K/uL Lymph # (Auto) 0.81 L (1.2-3.4) K/uL [place] # (Auto) 0.15 (0.11-0.59) K/uL Eos # (Auto) 0.03 (0-0.5) K/uL Baso # (Auto) 0.01 (0-0.2) K/uL Immature Gran # (Auto) 0.00 (0.00-0.02) K/uL [place] Plate[place] 1+ PT 10.8 (9.0-12.0) Seconds INR 1.1 (0.9-1.1) APTT 28.1 (21.0-31.0) Seconds PTT Ratio 1.1 Sodium 134 L (136-145) mmol/L Potassium 4.0 (3.5-5.1) mmol/L Chloride 103 (98-107) mmol/L Carbon Dioxide 26 (21-32) mmol/L Anion Gap 5.0 (3-11) BUN 22 H (7-18) mg/dl Creatinine 0.58 L (0.6-1.4) mg/dl Est Cr Clr Drug Dosing Not Reportable Est GFR ( Amer) 126.6 Est GFR (Non-Af Amer) 109.3 BUN/Creatinine Ratio 37.7 H (10-20) Glucose 123 H (70-99) mg/dl Lactate (0.4-2.0) mmol/L Calcium 8.6 (8.5-10.1) mg/dl Magnesium 1.6 L (1.8-2.4) mg/dl Total Bilirubin 0.4 (0.2-1) mg/dl AST 11 L (15-37) U/L ALT 11 L (12-78) U/L Alkaline Phosphatase 101 (45-117) U/L Total Protein 6.3 L (6.4-8.2) gm/dl Albumin 2.7 L (3.4-5.0) gm/dl Globulin 3.6 (2.5-4.0) gm/dl Albumin/Globulin Ratio 0.8 L (0.9-2) Procalcitonin (0-0.5) ng/ml Urine Color Urine Appearance (Clear) Urine pH (4.5-7.5) Ur Specific [place] (1.000-1.030) Urine Protein (Negative) Urine Glucose (UA) (Negative) Urine Ketones (Negative) Urine Blood (Negative) Urine Nitrite (Negative) Urine Bilirubin (Negative) Urine Urobilinogen (Negative) Ur Leukocyte Esterase (Negative) COVID-19 Eval Order SARS-CoV-2 (PCR) (Negative) Influenza Type A (PCR) (Neg) Influenza Type B (PCR) (Neg) RSV (RT-PCR) (Neg) 10/27/20 10/27/20 10/28/20 Range/Units 23:31 23:31 02:21 WBC (4.8-10.8) K/uL RBC (4.7-6.1) M/uL Hgb (14.0-18.0) g/dL Hct (42-52) % MCV (80-100) fL MCH (25-34) pg MCHC (32-36) g/dL RDW Std Deviation (36.4-46.3) fL RDW Coeff of [place] (11.5-14.5) % Plt Count (130-400) K/uL MPV (7.4-10.4) fL Immature Gran % (Auto) % Neut % (Auto) % Lymph % (Auto) % [place] % (Auto) % Eos % (Auto) % Baso % (Auto) % Neut # (Auto) (1.4-6.5) K/uL Lymph # (Auto) (1.2-3.4) K/uL [place] # (Auto) (0.11-0.59) K/uL Eos # (Auto) (0-0.5) K/uL Baso # (Auto) (0-0.2) K/uL Immature Gran # (Auto) (0.00-0.02) K/uL [place] Plate[place] PT (9.0-12.0) Seconds INR (0.9-1.1) APTT (21.0-31.0) Seconds PTT Ratio Sodium (136-145) mmol/L Potassium (3.5-5.1) mmol/L Chloride (98-107) mmol/L Carbon Dioxide (21-32) mmol/L Anion Gap (3-11) BUN (7-18) mg/dl Creatinine (0.6-1.4) mg/dl Est Cr Clr Drug Dosing Est GFR ( Amer) Est GFR (Non-Af Amer) BUN/Creatinine Ratio (10-20) Glucose (70-99) mg/dl Lactate 1.4 (0.4-2.0) mmol/L Calcium (8.5-10.1) mg/dl Magnesium (1.8-2.4) mg/dl Total Bilirubin (0.2-1) mg/dl AST (15-37) U/L ALT (12-78) U/L Alkaline Phosphatase (45-117) U/L Total Protein (6.4-8.2) gm/dl Albumin (3.4-5.0) gm/dl Globulin (2.5-4.0) gm/dl Albumin/Globulin Ratio (0.9-2) Procalcitonin 0.09 (0-0.5) ng/ml Urine Color Urine Appearance (Clear) Urine pH (4.5-7.5) Ur Specific [place] (1.000-1.030) Urine Protein (Negative) Urine Glucose (UA) (Negative) Urine Ketones (Negative) Urine Blood (Negative) Urine Nitrite (Negative) Urine Bilirubin (Negative) Urine Urobilinogen (Negative) Ur Leukocyte Esterase (Negative) COVID-19 Eval Order CovFluRsv at [facility] SARS-CoV-2 (PCR) (Negative) Influenza Type A (PCR) (Neg) Influenza Type B (PCR) (Neg) RSV (RT-PCR) (Neg) 10/28/20 10/28/20 Range/Units 02:21 03:46 WBC (4.8-10.8) K/uL RBC (4.7-6.1) M/uL Hgb (14.0-18.0) g/dL Hct (42-52) % MCV (80-100) fL MCH (25-34) pg MCHC (32-36) g/dL RDW Std Deviation (36.4-46.3) fL RDW Coeff of [place] (11.5-14.5) % Plt Count (130-400) K/uL MPV (7.4-10.4) fL Immature Gran % (Auto) % Neut % (Auto) % Lymph % (Auto) % [place] % (Auto) % Eos % (Auto) % Baso % (Auto) % Neut # (Auto) (1.4-6.5) K/uL Lymph # (Auto) (1.2-3.4) K/uL [place] # (Auto) (0.11-0.59) K/uL Eos # (Auto) (0-0.5) K/uL Baso # (Auto) (0-0.2) K/uL Immature Gran # (Auto) (0.00-0.02) K/uL Giant Platelets PT (9.0-12.0) Seconds INR (0.9-1.1) APTT (21.0-31.0) Seconds PTT Ratio Sodium (136-145) mmol/L Potassium (3.5-5.1) mmol/L Chloride (98-107) mmol/L Carbon Dioxide (21-32) mmol/L Anion Gap (3-11) BUN (7-18) mg/dl Creatinine (0.6-1.4) mg/dl Est Cr Clr Drug Dosing Est GFR ( Amer) Est GFR (Non-Af Amer) BUN/Creatinine Ratio (10-20) Glucose (70-99) mg/dl Lactate (0.4-2.0) mmol/L Calcium (8.5-10.1) mg/dl Magnesium (1.8-2.4) mg/dl Total Bilirubin (0.2-1) mg/dl AST (15-37) U/L ALT (12-78) U/L Alkaline Phosphatase (45-117) U/L Total Protein (6.4-8.2) gm/dl Albumin (3.4-5.0) gm/dl Globulin (2.5-4.0) gm/dl Albumin/Globulin Ratio (0.9-2) Procalcitonin (0-0.5) ng/ml Urine Color Yellow Urine Appearance Clear (Clear) Urine pH 5.5 (4.5-7.5) Ur Specific [place] 1.033 H (1.000-1.030) Urine Protein Negative (Negative) Urine Glucose (UA) Negative (Negative) Urine Ketones Negative (Negative) Urine Blood Negative (Negative) Urine Nitrite Negative (Negative) Urine Bilirubin Negative (Negative) Urine Urobilinogen Negative (Negative) Ur Leukocyte Esterase Negative (Negative) COVID-19 Eval Order SARS-CoV-2 (PCR) NEGATIVE (Negative) Influenza Type A (PCR) Negative (Neg) Influenza Type B (PCR) Negative (Neg) RSV (RT-PCR) Negative (Neg) Imaging Data Radiologist's Impression: CT abdomen and pelvis with contrast: Stent in the proximal sigmoid colon apple core lesion/thickening. There is a component of colonic obstruction. Thickening and inflammation in the rectum. Large amount of retained stool in the colon. Anasarca. Pulmonary metastasis. Consolidation in the left lung base. Gallbladder distention and cholelithiasis. Small low-attenuation lesions in the liver. Splenomegaly. Atrophic left kidney. Left nephrolithiasis. Edema throughout the peritoneal cavity and small amount of fluid. Retroperitoneal and some pelvic adenopathy. Radiologist: Kayley North MD ECG Data Attestation: I personally reviewed and interpreted this ECG as follows: Indication: + abdominal pain Rate (beats per minute): 75 Rhythm: + normal sinus ECG Intervals/blocks: + Normal QRS and + Normal QT ECG [place]: + Left axis deviation ECG ST segments: + Normal ST segments MDM Narrative This is a 60-year-old male currently undergoing chemotherapy for colon cancer resents with concerns for abdominal pain. Labs drawn and sent and patient sent for CT imaging. On additional discussion with the daughter bedside, she also notes patient has had a cough, and this evening developed a fever. No known sick contacts. Patient's last chemo treatment had been [address] did reveal an increased stool burden consistent with the patient's history of constipation likely due to his pain medication and chronic narcotic use, patient was also noted to have pneumonia which I feel is more likely the reason for the cough and fever. Patient initially given Zosyn to cover for potential infectious etiology in the abdomen, however additional coverage was added once CT revealed pneumonia. Patient was Covid negative. Patient was otherwise hemodynamically stable. Blood pressure head mildly dropped when fluids were only maintenance however these were increased and pressures came back up. I do not suspect bacteremia/sepsis. No evidence for perforation or bleeding. Colonic obstruction likely more chronic, I do not suspect acute obstructing process or [place] syndrome. Patient is anticoagulated. Given patient does have known metastases to the lungs it is possible patient could have developed a postobstructive pneumonia. Patient's pancytopenia otherwise does appear stable. An order was placed for continuous cardiac monitoring. The monitor shows a rate of _74_ with _normal sinus_ rhythm. Impression & Plan Abdominal pain, Immunocompromised, Pancytopenia, Colonic obstruction, Constipation, Pneumonia Discharge Plan Visit Data Chief Complaint: Illness Stated Complaint: CHEST PAIN, FEVER, WEAKNESS ED Provider: Katya Travis Discharge Problem: Abdominal pain, Immunocompromised, Pancytopenia, Colonic obstruction, Constipation, Pneumonia Patient Disposition: Admitted As Inpatient Discharge Instructions Interventions: ED Discharge Assessment Last Done: 10/28/20 05:59 Discharge Problem: Abdominal pain Qualifiers: Abdominal location: generalized Qualified Code(s): R10.84 - Generalized abdominal pain Constipation Qualifiers: Constipation type: unspecified constipation type Qualified Code(s): K59.00 - Constipation, unspecified Pneumonia Qualifiers: Pneumonia type: due to unspecified organism Laterality: left Lung location: lower lobe of lung Qualified Code(s): J18.9 - Pneumonia, unspecified organism
[2020-10-27 23:42] LABS: Hemoglobin 8.3 g/dL (14.0-18.0); Mean Corpuscular Hemoglobin 29.5 pg (25-34); Mean Corpuscular Hgb Conc 31.9 g/dL (32-36); Mean Corpuscular Volume 92.5 fL (80-100); RDW Coefficient of Variation 15.8 % (11.5-14.5); RDW Standard Deviation 53.7 fL (36.4-46.3); Red Blood Count 2.81 M/uL (4.7-6.1); White Blood Count 3.72 K/uL (4.8-10.8)
[2020-10-27 23:44] LABS: Mean Platelet Volume 8.9 fL (7.4-10.4); Platelet Count 97 K/uL (130-400)
[2020-10-27] MEDS: SODIUM CHLORIDE 0.9% 1000ML 1,000 ML IV SCH (23:47)
[2020-10-27 23:57] LABS: INR 1.1 (0.9-1.1); Partial Thromboplastin Ratio 1.1; Partial Thromboplastin Time 28.1 Seconds (21.0-31.0); Prothrombin Time 10.8 Seconds (9.0-12.0)
[2020-10-27 23:58] LABS: Basophils # (auto) 0.01 K/uL (0-0.2); Basophils % (auto) 0.3 %; Eosinophils # (auto) 0.03 K/uL (0-0.5); Eosinophils % (auto) 0.8 %; Giant Platelets 1+; Lymphocytes # (auto) 0.81 K/uL (1.2-3.4); Lymphocytes % (auto) 21.8 %; Monocytes # (auto) 0.15 K/uL (0.11-0.59); Neutrophils # (auto) 2.72 K/uL (1.4-6.5); Neutrophils % (auto) 73.1 %
[2020-10-28] LABS: Alanine Aminotransferase 11 U/L (12-78); Albumin Level 2.7 gm/dl (3.4-5.0); Aspartate Aminotransferase 11 U/L (15-37); BUN Creatinine Ratio 37.7 (10-20); Blood Urea Nitrogen 22 mg/dl (7-18); Calcium 8.6 mg/dl (8.5-10.1); Carbon Dioxide 26 mmol/L (21-32); Chloride 103 mmol/L (98-107); Est GFR (African American) 126.6; Est GFR (Non-African American) 109.3; Glucose 123 mg/dl (70-99); Magnesium 1.6 mg/dl (1.8-2.4); Sodium 134 mmol/L (136-145)
[2020-10-28 00:03] LABS: Albumin Globulin Ratio 0.8 (0.9-2); Alkaline Phosphatase 101 U/L (45-117); Bilirubin,Total 0.4 mg/dl (0.2-1); Globulin 3.6 gm/dl (2.5-4.0); Total Protein 6.3 gm/dl (6.4-8.2)
[2020-10-28] MEDS ORDERED: PIPERACILLIN/TAZOBACTAM 4.5 GM/120 ML BAG IV ONE (00:28)
[2020-10-28] MEDS ORDERED: PIPERACILL/TAZOBAC CONSULT ACTIVE PRN (00:28)
[2020-10-28] MEDS ORDERED: OPTIRAY 300 100mL IV ONE (00:47)
[2020-10-28] MEDS ORDERED: VANCOMYCIN CONSULT ACTIVE PRN (02:03)
[2020-10-28] MEDS ORDERED: VANCOMYCIN HCL 2,000 MG in SODIUM CHLORIDE 0.9% 500 ML IV ONE (02:03)
[2020-10-28] MEDS ORDERED: MAGNESIUM SULFATE / D5W 1 GM/100 ML BAG IV ONE (02:46)
[2020-10-28 03:10] LABS: Influenza A virus by PCR Negative (Neg); Influenza B virus by PCR Negative (Neg); RSV by PCR Negative (Neg); SARS CoV2 RNA(COVID-19) InHosp NEGATIVE (Negative)
[2020-10-28 03:57] LABS: Appearance Urine Clear (Clear); Bilirubin Urine Negative (Negative); Blood Urine Negative (Negative); Color Urine Yellow; Glucose Urine UA Negative (Negative); Ketones Urine Negative (Negative); Leukocyte Esterase Urine Negative (Negative); Nitrite Urine Negative (Negative); Protein Urine Negative (Negative); Specific Gravity Urine 1.033 (1.000-1.030); Urobilinogen Urine Negative (Negative); pH Urine 5.5 (4.5-7.5)
--- NOTE | 2020-10-28 04:51 | History & Physical Report ---
Date of Service October 28, 2020 Assessment & Plan (1) Abdominal pain: Acute on chronic abdominal pain metastatic colon cancer status post surgery ongoing chemotherapy, likely progression of disease Multifactorial : Recurrent colonic obstruction, hx stent placement Proctitis secondary to narcotic induced constipation HCAP No sepsis for now Immunocompromised patient given ongoing chemotherapy LLE DVT/possible PE on weight-based Lovenox Hypotension on midodrine Rx DM 2 on oral meds, well-controlled as of recent hemoglobin A1c of 6.04 September 2020 hyperlipidemia on statin Rx chronic pancytopenia, hemoglobin at baseline past tobacco abuse GMF Bowel rest Surgery consult Re: Colonic obstruction on CT (Consideration for diverting colostomy on review of previous consultation reports.) IV heparin in place of weight-based Lovenox until patient seen by surgery in anticipation of procedure. Hold RTC narcotics for now Bowel regimen Doxycycline, Zosyn for HCAP ISS BG goal [id number] DVT prophylaxis. IV Heparin Full code Text document was generated using [employer] voice recognition software. It may contain grammatical or spelling errors. Kindly contact undersigned for clarification of any documentation item in question. History of Present Illness Chief Complaint: Worsening abdominal pain Primary Care Provider: Duong Matt MD History obtained from patient and records. Medical history significant for metastatic colon cancer status post surgery ongoing chemotherapy, colonic obstruction status post stent placement, LLE DVT/possible PE on weight- based Lovenox, hypotension on midodrine Rx, DM 2 on oral meds, hyperlipidemia, urolithiasis, chronic pancytopenia (baseline hemoglobin 8-9), chronic pain on narcotics, past tobacco abuse. Patient confined August 2020 for pneumonia. CAT scan during confinement showed progressive dilatation of a stool-filled colon proximal to the colonic stent located at the descending sigmoid junction. There is interval development of colonic wall thickening proximal to the level of the stent consistent with a colitis. An element of bowel obstruction is suspected at the level of the stent. Patient underwent colonoscopy which showed malignant completely obstructing tumor at the level of the descending colon. 8 cm prosthesis placed through existing colonic stent due to tumor ingrowth causing obstruction. Last confinement September 2020 for gram-negative bacteremia attributed to proctocolitis. Patient discharged with Cipro Flagyl course. 2 days history of worsening of chronic central abdominal pain with nausea, no emesis. Worsening constipation although patient had a nonbloody bowel movement yesterday. Fever chills at home loss of appetite. No chest pain, no shortness of breath. Dry cough symptoms, denies aspiration. No known recent COVID-19 contacts. At the ER, patient received vancomycin and Zosyn for possible healthcare associated pneumonia. 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 Allergies Allergy/AdvReac Type Severity Reaction Status Date / Time No Known Allergies Allergy Verified 10/27/20 22:34 Home Medications Medication Instructions Recorded Confirmed Type pioglitazone [Actos] 30 mg PO QAM 04/18/18 10/27/20 History ferrous sulfate 325 mg PO BID 10/02/18 10/27/20 History oxycodone-acetaminophen 1 tab PO Q6 PRN 12/27/19 10/27/20 History prochlorperazine maleate 10 mg PO AMHS PRN 12/27/19 10/27/20 History [Compazine] cyanocobalamin (vitamin B-12) 500 mcg PO QAM 02/11/20 10/27/20 History [Vitamin B-12] diphenoxylate-atropine 1 tab PO QID PRN 02/11/20 10/27/20 History hyoscyamine sulfate [Levsin] 0.125 mg PO Q6H PRN 02/11/20 10/27/20 History morphine 15 mg PO Q12H 04/01/20 10/27/20 History ondansetron HCl 8 mg PO Q8H PRN 05/06/20 10/27/20 History mirtazapine 15 mg PO HS 06/23/20 10/27/20 History midodrine 10 mg PO TID@0800,1200,1700 30 08/29/20 10/27/20 Rx Days #90 tab docusate sodium [Colace] 100 mg PO BID 09/25/20 10/27/20 History magnesium hydroxide [Milk of 30 ml PO HS 09/25/20 10/27/20 History Magnesia] sennosides [senna] 8.6 mg PO DAILY 09/25/20 10/27/20 History Lactobacillus acidoph-L.bulgar 1 tab PO TID #30 tab 09/29/20 10/27/20 Rx [Lactinex] enoxaparin 90 mg SUBCUT QAM 10/27/20 10/27/20 History Past Med/Surg History Medical History (Updated 10/28/20 @ 14:09 by Kash Law MD) Acute lower GI bleeding Anxiety C. difficile colitis hx ~2018. 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 Depression Diverticulitis of colon with perforation NO SURGERY DM type 2 (diabetes mellitus, type 2) Dyslipidemia Immunocompromised Kidney stones Obesity Osteoarthritis Pancytopenia Follows with heme Splenomegaly r/t chemotherapy Surgical History History of colonoscopy History of cystoscopy STONE REMOVAL WITH STENT PLACED History of esophagogastroduodenoscopy (EGD) History of tooth extraction History of vascular access device RIGHT UPPER CHEST PLACED 09/2018 Hx of hernia repair Hx of tonsillectomy Family History Mother , Age 62 Breast cancer Father , Age 62 Stroke Sister Family history of diabetes mellitus Brother Family history of diabetes mellitus Brother Family history of diabetes mellitus Other No family history of adverse response to anesthesia Social History Smoking Status: Former smoker Tobacco Type: Cigarettes Second Hand Exposure: No; Do You Dip or Chew Tobacco: No; Tobacco Cessation Education Requested by Patient: No Hx Alcohol Use: No Hx Substance Use: No Preferred Language: Bengali Communication Ability: Effective Visual Impairment: No Limitations Hamper Maker Machine Required: No Beliefs That Will Affect Care: None marital status: Current Living Situation: Family Current Living Situation Comment: dtr How many Children do You have: 1 Other Information That Helps Us Care for You: No Feels Safe at Home: Yes Safety Concerns: Feels Safe At This Time Assistive Devices: None Review of Systems Review of Systems: As per HPI, all 10 systems reviewed, all other ROS negative Physical Exam Physical Exam: GENERAL: Slightly uncomfortable, flat affect, no respiratory distress SKIN: Pallor, warm HEENT: pale palpebral conjunctivae, no ptosis, dry buccal mucosa NECK : Supple, no tenderness CHEST : CTA, no tenderness HEART : RRR, no obvious murmurs ABDOMEN: Some distention, left-sided abdominal tenderness EXTREMITIES : No LE swelling/tenderness, no other conspicuous deformities noted NEUROLOGIC : Coherent, no facial asymmetry, no other gross focality Results & Data Results & Data ([facility]) Vital Signs (Past 12 Hours) Vital Signs Temp Pulse Resp BP Pulse Ox 10/28/20 04:00 74 15 102/66 97 10/28/20 03:30 72 15 103/66 97 10/28/20 03:00 73 14 100/64 98 10/28/20 02:30 70 14 116/70 98 10/28/20 02:00 69 16 102/70 100 10/28/20 01:00 71 14 108/64 98 10/28/20 00:26 73 14 100/61 98 10/27/20 23:52 98 10/27/20 23:50 36.9 C 10/27/20 22:58 76 17 106/66 98 10/27/20 22:57 97 10/27/20 20:47 37.3 C 101 H 16 113/78 97 Laboratory Results Laboratory Results WBC 3.72 K/uL (4.8-10.8) L 10/27/20 23:31 RBC 2.81 M/uL (4.7-6.1) L 10/27/20 23:31 Hgb 8.3 g/dL (14.0-18.0) L 10/27/20 23:31 Hct 26.0 % (42-52) L 10/27/20 23:31 MCV 92.5 fL (80-100) 10/27/20 23:31 MCH 29.5 pg (25-34) 10/27/20 23:31 MCHC 31.9 g/dL (32-36) L 10/27/20 23:31 RDW Std Deviation 53.7 fL (36.4-46.3) H 10/27/20 23:31 RDW Coeff of Ivette 15.8 % (11.5-14.5) H 10/27/20 23:31 Plt Count 97 K/uL (130-400) L 10/27/20 23:31 MPV 8.9 fL (7.4-10.4) 10/27/20 23:31 Immature Gran % (Auto) 0.0 % 10/27/20 23:31 Neut % (Auto) 73.1 % 10/27/20 23:31 Lymph % (Auto) 21.8 % 10/27/20 23: [place] % (Auto) 4.0 % 10/27/20 23: Eos % (Auto) 0.8 % 10/27/20: Baso % (Auto) 0.3 % 10/27/20: Neut # (Auto) 2.72 K/uL (1.4-6.5) 10/27/20: Lymph # (Auto) 0.81 K/uL (1.2-3.4) L 10/27/20: [place] # (Auto) 0.15 K/uL (0.11-0.59) 10/27/20: Eos # (Auto) 0.03 K/uL (0-0.5) 10/27/20 Baso # (Auto) 0.01 K/uL (0-0.2) 10/27/20 Immature Gran # (Auto) 0.00 K/uL (0.00-0.02) 10/27/20 Giant Platelets 1+ 10/27/20 PT 10.8 Seconds (9.0-12.0) 10/27/20 INR 1.1 (0.9-1.1) 10/27/20 APTT 28.1 Seconds (21.0-31.0) 10/27/20 PTT Ratio 1.1 10/27/20 Sodium 134 mmol/L (136-145) L 10/27/20 Potassium 4.0 mmol/L (3.5-5.1) 10/27/20 Chloride 103 mmol/L (98-107) 10/27/20: Carbon Dioxide 26 mmol/L (21-32) 10/27/20: Anion Gap 5.0 (3-11) 10/27/20 BUN 22 mg/dl (7-18) H 10/27/20 Creatinine 0.58 mg/dl (0.6-1.4) L 10/27/20 Est Cr Clr Drug Dosing Not Reportable 10/27/20 Est GFR ( Amer) 126.6 10/27/20 23:31 Est GFR (Non-Af Amer) 109.3 10/27/20 23:31 BUN/Creatinine Ratio 37.7 (10-20) H 10/27/20 23:31 Glucose 123 mg/dl (70-99) H 10/27/20 23:31 Lactate 1.4 mmol/L (0.4-2.0) 10/27/20 23:31 Calcium 8.6 mg/dl (8.5-10.1) 10/27/20 23:31 Magnesium 1.6 mg/dl (1.8-2.4) L 10/27/20 23:31 Total Bilirubin 0.4 mg/dl (0.2-1) 10/27/20 23:31 AST 11 U/L (15-37) L 10/27/20 23:31 ALT 11 U/L (12-78) L 10/27/20 23:31 Alkaline Phosphatase 101 U/L (45-117) 10/27/20 23:31 Total Protein 6.3 gm/dl (6.4-8.2) L 10/27/20 23:31 Albumin 2.7 gm/dl (3.4-5.0) L 10/27/20 23:31 Globulin 3.6 gm/dl (2.5-4.0) 10/27/20 23:31 Albumin/Globulin Ratio 0.8 (0.9-2) L 10/27/20 23:31 Procalcitonin 0.09 ng/ml (0-0.5) 10/27/20 23:31 Urine Color Yellow 10/28/20 03:46 Urine Appearance Clear (Clear) 10/28/20 03:46 Urine pH 5.5 (4.5-7.5) 10/28/20 03:46 Ur Specific [place] 1.033 (1.000-1.030) H 10/28/20 03:46 Urine Protein Negative (Negative) 10/28/20 03:46 Urine Glucose (UA) Negative (Negative) 10/28/20 03:46 Urine Ketones Negative (Negative) 10/28/20 03:46 Urine Blood Negative (Negative) 10/28/20 03:46 Urine Nitrite Negative (Negative) 10/28/20 03:46 Urine Bilirubin Negative (Negative) 10/28/20 03:46 Urine Urobilinogen Negative (Negative) 10/28/20 03:46 Ur Leukocyte Esterase Negative (Negative) 10/28/20 03:46 COVID-19 Eval Order CovFluRsv at [facility] 10/28/20 02:21 SARS-CoV-2 (PCR) NEGATIVE (Negative) 10/28/20 02:21 Influenza Type A (PCR) Negative (Neg) 10/28/20 02:21 Influenza Type B (PCR) Negative (Neg) 10/28/20 02:21 RSV (RT-PCR) Negative (Neg) 10/28/20 02:[address] abdomen pelvis initial read: Stent in proximal sigmoid colon and apple core lesion/thickening. Component of colonic obstruction thickening and inflammation in the rectum. Large amount of retained stool in the colon. Anasarca. Pulmonary mets consolidation left lung base. Gallbladder distention and cholelithiasis. Small low-attenuation lesions in the liver. Splenomegaly. Atrophic left kidney. Edema throughout peritoneal cavity and small amount of fluid. Retroperitoneal and some pelvic adenopathy. Chest x-ray as per my interpretation cardiomegaly, atelectasis EKG as per my interpretation : Rate 75, NSR, LAD, LAFB, septal infarct (1) Abdominal pain Abdominal location: unspecified location Qualified Code(s): R10.9 - Unspecified abdominal pain
[2020-10-28] MEDS ORDERED: MIDODRINE HCL 2.5 MG TAB PO STA (05:11)
[2020-10-28] MEDS ORDERED: MoRPHine SULFATE 2 MG/ML CARP IV PRN (08:37)
[2020-10-28] MEDS ORDERED: LORazepam 0.25 MG/0.5 ML VIAL IV PRN (08:37)
[2020-10-28] MEDS ORDERED: oxyCODONE/ACETAMINOPHEN 5mg/325mg TAB PO PRN (08:37)
[2020-10-28] MEDS ORDERED: PROMETHAZINE HCL 12.5 MG in SODIUM CHLORIDE 0.9% 50 ML IV PRN (08:37)
[2020-10-28] MEDS ORDERED: POLYETHYLENE (MIRALAX) 17 GM PACK PO PRN (08:37)
[2020-10-28] MEDS ORDERED: ACETAMINOPHEN 325 MG TAB PO PRN (08:37)
[2020-10-28] MEDS ORDERED: Heparin IV Adult Wt-Based Low-Dose *NO* Bolus Protocol IV SCH (08:37)
[2020-10-28] MEDS ORDERED: GLUCOSE 10 TABS/TUBE PO PRN (08:52)
[2020-10-28] MEDS ORDERED: CARBOHYDRATES FOR HYPOGLYCEMIA PO PRN (08:52)
[2020-10-28] MEDS ORDERED: GLUCOSE 40% GEL 15 GM TUBE PO PRN (08:52)
[2020-10-28] MEDS ORDERED: GLUCAGON FOR INJ 1 MG VIAL SQ PRN (08:52)
[2020-10-28] MEDS ORDERED: DEXTROSE 50% 50 ML SYRINGE IV PRN (08:52)
--- NOTE | 2020-10-28 08:52 | CT Scan Report ---
CT OF THE ABDOMEN AND PELVIS WITH CONTRAST CLINICAL HISTORY: Abdominal pain. Fever. Colon cancer. COMPARISON STUDY: CT of the abdomen September 25, 2020. TECHNIQUE: Following IV administration of 85 mL of Optiray, axial images of the abdomen and pelvis we re obtained from the lung bases to the proximal femurs. Images were reviewed in the axial, sagittal, and coronal planes. IV contrast was administered without complication. Automated exposure control wa s utilized for the study. A dose lowering technique was utilized adhering to the principles of ALARA . CT DOSE: 474.45 mGy.cm FINDINGS: Multiple pulmonary metastases have mildly increased in size since CT of September 25, 2020. Ind ex left lower lobe lesion on image 20 measures 3.4 cm. It previously measured 3.1 cm. Note is made of cardiomegaly. No pneumatosis, free air or portal venous gas is present. Splenomegaly is again noted. There has been interval development of numerous subcentimeter hypodense hepatic lesions. There is no biliary or pancreatic ductal dilatation. Gallbladder is mildly distended. Left renal atrophy is note d. Multiple left renal calculi are noted. There are no ureteral calculi. There is no hydronephrosis. Enlarged abdominal or pelvic lymph nodes have mildly increased in size since prior CT. Mesenteric inf iltration is noted. There is a small amount of abdominal and pelvic ascites. No suspicious osseous le sions are noted. Persistent wall thickening of the rectum and colon is noted. This suggests a nonspec ific proctocolitis. A moderate amount of stool within the colon is noted. A stent within the sigmoid colon extending across an annular lesion remains unchanged in position. Upstream colonic dilatation h as mildly increased. IMPRESSION: 1. Stable position of the colonic stent extending across the sigmoid colon lesion. Mild increase in u pstream colonic dilatation with moderate amount stool within the colon. A partial colonic obstruction may be present. Persistent rectal and colonic wall thickening with adjacent infiltration which sugge sts a nonspecific proctocolitis. 2. Progression of pulmonary and lawson metastases with interval development of hepatic metastases. 3. Cholelithiasis. Mild gallbladder distention. If right upper quadrant pain, ultrasound is recommend ed. 4. Small amount of ascites. ACT 112: Negative or not required by law. Electronically signed by: Manolo Amaral M.D. 10/28/2020 8:51 AM
--- NOTE | 2020-10-28 08:59 | Surgery Consultation ---
Date of Consultation October 28, 2020 Assessment & Plan (1) Colonic obstruction: Patient has been admitted to the hospital by the hospital service. Is recommended we proceed as follows: The patient's weakened state and the fact that he has had recent chemotherapy would be preferable to avoid surgery at this time Gastroenterology has previously placed a stent in his colon we recommend consult to gastroenterology to see if they have any further input particularly with regards to repeat colonoscopy with either restenting or adjustment of the current stent. Continue hydration measures IV fluid until we are certain his oral intake will be reliable We will continue to follow along with the patient is hospitalized Supervising Physician Co-Signing Physician Notes Patient seen and examined, labs and imaging reviewed, agree with above. 60-year-old male with history of obstructing sigmoid cancer and metastatic disease to the liver, status post stent placement. He did have to have a stent replaced for ingrowth of the tumor. He is currently on chemotherapy which he last received 3 days ago. He began having left-sided abdominal pain. He was admitted for possible colonic obstruction. He has not had any abdominal surgery in the past. On exam he is obese, afebrile, with stable vitals. His abdomen is soft, tender to palpation in the left lower quadrant without guarding or rebound, mildly distended. Labs show pancytopenia secondary to chemotherapy. CT scan reviewed with possible partial bowel obstruction just distal to the colonic stent. Given his disease process along with his recent chemotherapy we be very hesitate to operate on this patient. If anything were required it would be a diverting loop colostomy, but this would be a last resort. At this point we would recommend consulting GI for possible repeat colonoscopy and stent placement. Surgery will continue to follow, call with questions or concerns. History of Present Illness Reason for Consultation: Colon obstruction Attending Physician: Jase Ellis MD History of Present Illness Is a 60-year-old male with an underlying history of colon cancer. The patient says that he has not had any surgical resection for this cancer however he is receiving chemotherapy. His most recent chemotherapy session was performed proximally 3 days ago. He states his next session is due in 2 weeks. Patient presented to the hospital through the emergency department yesterday due to fever as high as 100. He also notes some left-sided abdominal pain. In addition to his fevers he reports some shakes and chills. He denies any cough or shortness of breath. He denies any dysuria. Patient does note that he did have a bowel movement yesterday and he feels as though it was normal. He notes that there is no blood in his stool and he denies any melanotic stool. He denies any nausea vomiting. It is noteworthy mention that the patient did have a colonic stent placed in August 2020. Patient had a repeat colonoscopy on August 30 at which time the patient was noted to have some ingrowth of his colon mass in the existing stent and this was restented by gastroenterology. Because of his symptomatology he did present to the hospital yesterday and was admitted by the hospitalist In the emergency department the patient did have imaging and labs which were independently reviewed by myself. Patient had a CBC where his white blood cell count was 3.7, hemoglobin and hematocrit were 8.3 and 26.0, and platelet count was 97,000. Chemistry profile revealed sodium and potassium are 134 and 4.0. His BUN and creatinine were 27 and 0.5. He did have a Covid test that was noted be negative. Patient underwent a CT scan of the abdomen that showed stable position of the previously noted colon stent. There is noted to be some upstream colonic distention with concern for partial colon obstruction. Patient was also noted to have pulmonary hepatic mets. At the time of my interview the patient was resting comfortably in bed he was in no distress. Allergies Allergy/AdvReac Type Severity Reaction Status Date / Time No Known Allergies Allergy Verified 10/27/20 22:34 Home Medications Medication Instructions Recorded Confirmed Type pioglitazone [Actos] 30 mg PO QAM 04/18/18 10/27/20 History ferrous sulfate 325 mg PO BID 10/02/18 10/27/20 History oxycodone-acetaminophen 1 tab PO Q6 PRN 12/27/19 10/27/20 History prochlorperazine maleate 10 mg PO AMHS PRN 12/27/19 10/27/20 History [Compazine] cyanocobalamin (vitamin B-12) 500 mcg PO QAM 02/11/20 10/27/20 History [Vitamin B-12] diphenoxylate-atropine 1 tab PO QID PRN 02/11/20 10/27/20 History hyoscyamine sulfate [Levsin] 0.125 mg PO Q6H PRN 02/11/20 10/27/20 History morphine 15 mg PO Q12H 04/01/20 10/27/20 History ondansetron HCl 8 mg PO Q8H PRN 05/06/20 10/27/20 History mirtazapine 15 mg PO HS 06/23/20 10/27/20 History midodrine 10 mg PO TID@0800,1200,1700 30 08/29/20 10/27/20 Rx Days #90 tab docusate sodium [Colace] 100 mg PO BID 09/25/20 10/27/20 History magnesium hydroxide [Milk of 30 ml PO HS 09/25/20 10/27/20 History Magnesia] sennosides [senna] 8.6 mg PO DAILY 09/25/20 10/27/20 History Lactobacillus acidoph-L.bulgar 1 tab PO TID #30 tab 09/29/20 10/27/20 Rx [Lactinex] enoxaparin 90 mg SUBCUT QAM 10/27/20 10/27/20 History Patient History Medical History Acute lower GI bleeding Anxiety C. difficile colitis hx ~2017. 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 Depression Diverticulitis of colon with perforation NO SURGERY DM type 2 (diabetes mellitus, type 2) Dyslipidemia Immunocompromised Kidney stones Obesity Osteoarthritis Pancytopenia Follows with heme Splenomegaly r/t chemotherapy Surgical History History of colonoscopy History of cystoscopy STONE REMOVAL WITH STENT PLACED History of esophagogastroduodenoscopy (EGD) History of tooth extraction History of vascular access device RIGHT UPPER CHEST PLACED 09/2018 Hx of hernia repair Hx of tonsillectomy Family History Mother , Age 62 Breast cancer Father , Age 62 Stroke Sister Family history of diabetes mellitus Brother Family history of diabetes mellitus Brother Family history of diabetes mellitus Other No family history of adverse response to anesthesia Social History Smoking Status: Former smoker Tobacco Type: Cigarettes Second Hand Exposure: No; Do You Dip or Chew Tobacco: No; Tobacco Cessation Education Requested by Patient: No Hx Alcohol Use: No Hx Substance Use: No Preferred Language: Belarusian Communication Ability: Effective Visual Impairment: No Limitations Objective C Developer Required: No Beliefs That Will Affect Care: None marital status: Current Living Situation: Family Current Living Situation Comment: dtr How many Children do You have: 1 Other Information That Helps Us Care for You: No Feels Safe at Home: Yes Safety Concerns: Feels Safe At This Time Assistive Devices: None Review of Systems Constitutional: + fever, + chills and + fatigue Eyes: no diplopia Ear, Nose, Mouth, Throat: no ear pain Respiratory: no cough and no dyspnea Cardiovascular: no chest pain Gastrointestinal: + abdominal pain; no nausea, no vomiting, no diarrhea/loose stools and no blood in stools Genitourinary: no dysuria Musculoskeletal: no back pain Integumentary: no rash Neurologic: + generalized weakness Physical Exam Constitutional: no acute distress Eyes: no conjunctival abnormality ENMT: Ears: no hearing impairment Neck: trachea midline Respiratory: normal respiratory effort; no respiratory distress and no labored breathing Slight decrease of breath sounds noted at the bases Cardiovascular: Rate/Rhythm: regular rate and regular rhythm Gastrointestinal (Abdomen): Abdomen is soft with mild distention. Bowel sounds are hypoactive. There is no rebound tenderness or guarding. The patient did have pain with palpation noted in the left upper quadrant. Musculoskeletal: No calf tenderness Skin: no rashes, warm and dry Neurologic: moves all extremities Psychiatric: Orientation: alert and oriented x 3 Affect: + flat affect Results & Data ([facility]) Vital Signs (Past 12 Hours) Vital Signs Temp Pulse Resp BP Pulse Ox 10/28/20 06:00 70 16 106/68 99 10/28/20 04:44 70 15 97/62 L 100 10/28/20 04:00 74 15 102/66 97 10/28/20 03:30 72 15 103/66 97 10/28/20 03:00 73 14 100/64 98 10/28/20 02:30 70 14 116/70 98 10/28/20 02:00 69 16 102/70 100 10/28/20 01:00 71 14 108/64 98 10/28/20 00:26 73 14 100/61 98 10/27/20 23:52 98 10/27/20 23:50 36.9 C 10/27/20 22:58 76 17 106/66 98 10/27/20 22:57 97 PG Care Time/CCT Total # of Minutes Spent Total Time Spent with Patient: Total time spent is greater than 50% in coordination of care (as documented) at patient's floor/unit and/or counseling patient: Coding Level of Care Code 76634 Inpt Consult Level 4 Diagnoses Colonic obstruction K56.609
[2020-10-28] MEDS ORDERED: DOXYCYCLINE HYCLATE 100 MG in DEXTROSE 5% 100 ML IV ONE (09:00)
--- NOTE | 2020-10-28 09:05 | XRay Report ---
SINGLE VIEW CHEST CLINICAL HISTORY: Sepsis. FINDINGS: An AP, portable, upright chest radiograph is compared to study dated 09/25/2020 and correlat ed with chest CT dated 08/25/2020. The examination is degraded by portable technique and apical lordot ic positioning. A left subclavian central venous infusion port is unchanged in position. The heart is enlarged noting atherosclerotic calcification of the thoracic aorta. The pulmonary vasculature is no ncongested. There are low lung volumes with bibasilar atelectasis. No airspace consolidation or large pleural effusion is identified. No pneumothorax is seen. The skeletal structures are osteopenic. The bony thorax is grossly intact. IMPRESSION: Cardiomegaly with no active disease in the chest. ACT 112: Negative or not required by law. Electronically signed by: Alton Gutierrez M.D. 10/28/2020 9:04 AM
[2020-10-28 09:15] LABS: Hemoglobin 8.2 g/dL (14.0-18.0); Mean Corpuscular Hemoglobin 29.4 pg (25-34); Mean Corpuscular Hgb Conc 31.5 g/dL (32-36); Mean Corpuscular Volume 93.2 fL (80-100); RDW Coefficient of Variation 15.7 % (11.5-14.5); RDW Standard Deviation 53.9 fL (36.4-46.3); Red Blood Count 2.79 M/uL (4.7-6.1); White Blood Count 2.91 K/uL (4.8-10.8)
[2020-10-28 09:26] LABS: Mean Platelet Volume 8.6 fL (7.4-10.4); Platelet Count 85 K/uL (130-400)
[2020-10-28 09:31] LABS: Eosinophils # (auto) 0.07 K/uL (0-0.5); Eosinophils % (auto) 2.4 %; Immature Granulocytes # (auto) 0.01 K/uL (0.00-0.02); Immature Granulocytes % (auto) 0.3 %; Lymphocytes # (auto) 0.65 K/uL (1.2-3.4); Lymphocytes % (auto) 22.3 %; Monocytes # (auto) 0.11 K/uL (0.11-0.59); Monocytes % (auto) 3.8 %; Neutrophils # (auto) 2.07 K/uL (1.4-6.5); Neutrophils % (auto) 71.2 %
[2020-10-28 09:47] LABS: BUN Creatinine Ratio 31.6 (10-20); Calcium 8.5 mg/dl (8.5-10.1); Est GFR (African American) 131.4; Est GFR (Non-African American) 113.4; Magnesium 1.9 mg/dl (1.8-2.4)
[2020-10-28] MEDS: SODIUM CHLORIDE 0.9% 1000ML 1,000 ML IV SCH (10:19)
[2020-10-28] MEDS: PIPERACILLIN/TAZOBACTAM 3.375 GM in DEXTROSE 5% 100 ML IV SCH ×2 (10:22→16:57)
[2020-10-28] MEDS: ADVANCED PROBIOTIC 1250 MG CAPSULE PO SCH (10:26)
[2020-10-28] MEDS: CYANOCOBALAMIN 500 MCG TABLET (VITAMIN B-12) PO SCH (10:26)
[2020-10-28] MEDS: DOCUSATE SODIUM/SENNA 50/8.6MG TAB PO SCH ×2 (10:26→21:57)
[2020-10-28] MEDS: MIDODRINE HCL 10 MG TAB PO SCH ×3 (10:27→16:53)
[2020-10-28] MEDS: MoRPHine SULFATE CR 15 MG TABCR PO SCH ×2 (10:35→21:57)
[2020-10-28] MEDS: INSULIN ASPART 100 UNITS/ML 3 ML PEN SC SCH ×3 (10:38→18:40)
[2020-10-28 12:10] LABS: Hematocrit (blood only) 24.7 % (42-52); Mean Corpuscular Hemoglobin 29.6 pg (25-34); Mean Corpuscular Volume 91.5 fL (80-100); RDW Coefficient of Variation 15.7 % (11.5-14.5); White Blood Count 2.94 K/uL (4.8-10.8)
[2020-10-28 12:23] LABS: Mean Corpuscular Hgb Conc 32.4 g/dL (32-36); Mean Platelet Volume 9.2 fL (7.4-10.4); Platelet Count 90 K/uL (130-400)
[2020-10-28 12:24] LABS: INR 1.1 (0.9-1.1); Partial Thromboplastin Ratio 0.9; Partial Thromboplastin Time 24.8 Seconds (21.0-31.0); Prothrombin Time 10.7 Seconds (9.0-12.0)
[2020-10-28 12:40] LABS: Eosinophils # (auto) 0.05 K/uL (0-0.5); Eosinophils % (auto) 1.7 %; Immature Granulocytes # (auto) 0.01 K/uL (0.00-0.02); Immature Granulocytes % (auto) 0.3 %; Lymphocytes # (auto) 0.56 K/uL (1.2-3.4); Monocytes # (auto) 0.09 K/uL (0.11-0.59); Monocytes % (auto) 3.1 %; Neutrophils # (auto) 2.23 K/uL (1.4-6.5); Neutrophils % (auto) 75.9 %
[2020-10-28] MEDS: HEPARIN SODIUM/DEXTROSE 25,000 UNITS/500 ML BAG IV SCH (13:13)
--- NOTE | 2020-10-28 14:13 | Gastrointestinal Consultation ---
Date of Consultation October 28, 2020 Assessment & Plan (1) Colon obstruction: (2) Constipation: (3) Colon cancer: appears to have partial bowel obstruction and stool build up, improving after bowel movements. Surgery consultation appreciated. At this point he is not a candidate for another stent placement as he has a stent within a stent already. Recs: golytely 2L now to help relieve stool burden - check daily KUBs - if worsening obstruction or symptoms, low threshold to reconsider surgery particularly diverting colostomy for definitive management NPO for now Thank you for allowing me to participate in the care of this patient. History of Present Illness Attending Physician: Chino Correa MD 60 yo male with hx metastatic colon cancer s/p 2 colonic stent placements (stent within a stent) for bowel obstruction, on chemotherapy last dose 3 days ago here with abd pains. Imaging shows dilated bowel loops and possible partial bowel obstruction. Patient notes this morning he had multiple bowel movements and is feeling better particularly with the abdominal pains. labs reviewed. Allergies Allergy/AdvReac Type Severity Reaction Status Date / Time No Known Allergies Allergy Verified 10/27/20 22:34 Home Medications Medication Instructions Recorded Confirmed Type pioglitazone [Actos] 30 mg PO QAM 04/18/18 10/27/20 History ferrous sulfate 325 mg PO BID 10/02/18 10/27/20 History oxycodone-acetaminophen 1 tab PO Q6 PRN 12/27/19 10/27/20 History prochlorperazine maleate 10 mg PO AMHS PRN 12/27/19 10/27/20 History [Compazine] cyanocobalamin (vitamin B-12) 500 mcg PO QAM 02/11/20 10/27/20 History [Vitamin B-12] diphenoxylate-atropine 1 tab PO QID PRN 02/11/20 10/27/20 History hyoscyamine sulfate [Levsin] 0.125 mg PO Q6H PRN 02/11/20 10/27/20 History morphine 15 mg PO Q12H 04/01/20 10/27/20 History ondansetron HCl 8 mg PO Q8H PRN 05/06/20 10/27/20 History mirtazapine 15 mg PO HS 06/23/20 10/27/20 History midodrine 10 mg PO TID@0800,1200,1700 30 08/29/20 10/27/20 Rx Days #90 tab docusate sodium [Colace] 100 mg PO BID 09/25/20 10/27/20 History magnesium hydroxide [Milk of 30 ml PO HS 09/25/20 10/27/20 History Magnesia] sennosides [senna] 8.6 mg PO DAILY 09/25/20 10/27/20 History Lactobacillus acidoph-L.bulgar 1 tab PO TID #30 tab 09/29/20 10/27/20 Rx [Lactinex] enoxaparin 90 mg SUBCUT QAM 10/27/20 10/27/20 History Patient History Medical History (Updated 10/28/20 @ 14:09 by Kash Law MD) Acute lower GI bleeding Anxiety C. difficile colitis hx ~2017. 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 Depression Diverticulitis of colon with perforation NO SURGERY DM type 2 (diabetes mellitus, type 2) Dyslipidemia Immunocompromised Kidney stones Obesity Osteoarthritis Pancytopenia Follows with heme Splenomegaly r/t chemotherapy Surgical History History of colonoscopy History of cystoscopy STONE REMOVAL WITH STENT PLACED History of esophagogastroduodenoscopy (EGD) History of tooth extraction History of vascular access device RIGHT UPPER CHEST PLACED 09/2018 Hx of hernia repair Hx of tonsillectomy Family History Mother , Age 62 Breast cancer Father , Age 62 Stroke Sister Family history of diabetes mellitus Brother Family history of diabetes mellitus Brother Family history of diabetes mellitus Other No family history of adverse response to anesthesia Social History Smoking Status: Former smoker Tobacco Type: Cigarettes Second Hand Exposure: No; Do You Dip or Chew Tobacco: No; Tobacco Cessation Education Requested by Patient: No Hx Alcohol Use: No Hx Substance Use: No Preferred Language: Gambian Communication Ability: Effective Visual Impairment: No 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 Beliefs That Will Affect Care: None marital status: Current Living Situation: Family Current Living Situation Comment: dtr How many Children do You have: 1 Other Information That Helps Us Care for You: No Feels Safe at Home: Yes Safety Concerns: Feels Safe At This Time Assistive Devices: None Review of Systems Constitutional: no fever, no chills and no weight loss Eyes: as per Subjective / HPI Ear, Nose, Mouth, Throat: as per Subjective / HPI Respiratory: no dyspnea and no dyspnea on exertion Cardiovascular: no chest pain and no palpitations Gastrointestinal: as per Subjective / HPI Musculoskeletal: no joint pain and no swelling Integumentary: no rash and no lesions Neurologic: no numbness and no paresthesia Psychiatric: no depression and no anxiety Endocrine: no fatigue Hematologic / Lymphatic: no easy bleeding and no easy bruising Physical Exam Constitutional: WD/WN, vitals as above Eyes: EOM intact bilaterally Neck: normal visual inspection Respiratory: normal respiratory effort, lungs clear to auscultation Cardiovascular: RRR, no murmur, no edema Gastrointestinal (Abdomen): Inspection/Auscultation: abdomen normal to inspection; abdomen not distended Percussion/Palpation: + abdomen tender (mild) and abdomen soft; no hepatosplenomegaly Musculoskeletal: Extremities: no cyanosis Gait: normal gait Skin: no rashes, warm and dry Neurologic: moves all extremities Psychiatric: A+Ox3, euthymic affect Results & Data ([facility]) Vital Signs (Past 12 Hours) Vital Signs Temp Pulse Pulse Resp BP BP Pulse Ox 10/28/20 13:08 127/77 10/28/20 08:44 36.6 C 72 16 114/72 99 10/28/20 06:00 70 16 106/68 99 10/28/20 04:44 70 15 97/62 L 100 10/28/20 04:00 74 15 102/66 97 10/28/20 03:30 72 15 103/66 97 10/28/20 03:00 73 14 100/64 98 10/28/20 02:30 70 14 116/70 98 PG Care Time/CCT Total # of Minutes Spent Total Time Spent with Patient: Total time spent is greater than 50% in coordination of care (as documented) at patient's floor/unit and/or counseling patient: Coding Level of Care Code 80073 Inpt Consult Level 4 Diagnoses Colon obstruction K56.609 Constipation K59.00 Colon cancer C18.9 Colon location: unspecified part of colon (1) Colon cancer Colon location: unspecified part of colon Qualified Code(s): C18.9 - Malignant neoplasm of colon, unspecified
[2020-10-28] MEDS ORDERED: LAVAGE SOLUTION 4000ML PO SCH (18:00)
--- NOTE | 2020-10-28 18:27 | Hospitalist Progress Note ---
Date of Service October 28, 2020 Assessment & Plan (1) Abdominal pain: Partial Small Bowel Obstruction -CT ABD:Stable position of the colonic stent extending across the sigmoid colon lesion. Mild increase in upstream colonic dilatation with moderate amount stool within the colon. A partial colonic obstruction may be present. Persistent rectal and colonic wall thickening with adjacent infiltration which suggests a nonspecific proctocolitis. Progression of pulmonary and lawson metastases with interval development of hepatic metastases. Cholelithiasis. Mild gallbladder distention. If right upper quadrant pain, ultrasound is recommended. Small amount of ascites. -H/O metastatic colon cancer S/P surgery and stent placement -Conservative management for now -Bowel rest -Gentle IV fluids -Appreciate GI, Surgery Input -Not a candidate for re stenting as per GI -If no improvement, may need diverting colostomy -Continue bowel regimen -Daily KUB in AM -Empirically on antibiotics Metastatic colon cancer S/P Surgery Ongoing chemotherapy Follows with Dr. Meraz as outpatient Immunocompromised patient Ongoing chemotherapy Left LE DVT/possible PE Was on weight-based Lovenox Hold Lovenox for now Continue IV heparin Hypotension on midodrine DM II Hold PO meds HbA1C: 6.04 September 2020 Continue Insulin therapy Hyperlipidemia on statin Chronic pancytopenia Monitor CBC DVT Px: On IV Heparin Code Status Full code Admission and Anticipated Discharge Date Admission Date: October 28, 2020 Subjective Patient is seen and examined at bedside Had bowel movement this morning +Flatus Discussed with surgery today Reports having left lower quadrant abdominal pain Denies nausea, vomiting, chest pain , SOB Offers no other complaints Review of Systems Review of Systems: All systems reviewed & are unremarkable except as noted in HPI & below Physical Exam Physical Exam: Physical Exam: Vitals signs as noted above General Appearance:Moderately built, Chronic ill appearing, no apparent distress Head: normocephalic, Atraumatic Eyes: normal inspection, EOMI Neck: supple, Trachea midline Respiratory/Chest: Normal breath sounds, CTA, +Chemo Port Cardiovascular: S1, S2, No murmur Abdomen/GI:Soft, LLQ tender, Decreased Bowel sounds, +Distention Extremities/Musculoskeletal:normal inspection, no edema Neurologic/Psych:AAOX3, grossly no focal neurological deficits Skin: normal color, warm Results & Data Results & Data ([facility]) Vital Signs (Past 12 Hours) Vital Signs Temp Pulse Pulse Resp BP Pulse Ox 10/28/20 16:52 70 110/71 10/28/20 16:20 37.1 C 72 18 121/79 97 10/28/20 13:08 127/77 10/28/20 08:44 36.6 C 72 16 114/72 99 Laboratory Results Short CBC 10/27/20 10/28/20 10/28/20 Range/Units 23:31 09:04 11:59 WBC 3.72 L 2.91 L 2.94 L (4.8-10.8) K/uL Hgb 8.3 L 8.2 L 8.0 L (14.0-18.0) g/dL Hct 26.0 L 26.0 L 24.7 L (42-52) % Plt Count 97 L 85 L 90 L (130-400) K/uL BMP 10/27/20 10/28/20 23:31 09:04 Sodium 134 L 134 L Potassium 4.0 4.0 Chloride 103 103 Carbon Dioxide 26 29 BUN 22 H 17 Creatinine 0.58 L 0.53 L Glucose 123 H 111 H Calcium 8.6 8.5 Liver Function 10/27/20 Range/Units 23:31 Total Bilirubin 0.4 (0.2-1) mg/dl AST 11 L (15-37) U/L ALT 11 L (12-78) U/L Alkaline Phosphatase 101 (45-117) U/L Albumin 2.7 L (3.4-5.0) gm/dl Urine 10/28/20 Range/Units 03:46 Urine Color Yellow Urine Appearance Clear (Clear) Urine pH 5.5 (4.5-7.5) Ur Specific [place] 1.033 H (1.000-1.030) Urine Protein Negative (Negative) Urine Glucose (UA) Negative (Negative) (1) Abdominal pain Abdominal location: unspecified location Qualified Code(s): R10.9 - Unspecified abdominal pain
[2020-10-28] MEDS ORDERED: Nursing to Pharmacy Communication SCH (19:30)
[2020-10-28 19:45] LABS: Partial Thromboplastin Ratio 1.1; Partial Thromboplastin Time 29.5 Seconds (21.0-31.0)
[2020-10-28] MEDS ORDERED: HEPARIN IV BOLUS 4,500 UNITS in SYRINGE 0 ML IV ONE (21:15)
[2020-10-28] MEDS: DOXYCYCLINE HYCLATE 100 MG CAP PO SCH (21:58)
[2020-10-28] MEDS: MIRTAZAPINE TAB 15 MG TAB PO SCH (21:58)
--- NOTE | 2020-10-28 23:31 | XRay Report ---
KUB CLINICAL HISTORY: Partial colonic obstruction. FINDINGS: 3 AP supine abdominal radiographs are compared to study dated 09/06/2020 and correlated with abdominal CT performed the same day 10/28/2020. A colonic stent is again seen projecting over the left lower quadrant. There is no radiographic evidence of high-grade bowel obstruction. No evidence of in traperitoneal free air is seen on these supine views. There are no abnormal abdominal calcifications. The skeletal structures are osteopenic and appear intact. IMPRESSION: A colonic stent is unchanged in position. There is no radiographic evidence of high-grade obstruction. Electronically signed by: Alton Gutierrez M.D. 10/28/2020 11:29 PM
[2020-10-29] MEDS: INSULIN ASPART 100 UNITS/ML 3 ML PEN SC SCH ×5 (00:20→21:21)
[2020-10-29] MEDS: PIPERACILLIN/TAZOBACTAM 3.375 GM in DEXTROSE 5% 100 ML IV SCH ×3 (00:21→17:19)
[2020-10-29 04:01] LABS: Hematocrit (blood only) 23.1 % (42-52); Hemoglobin 7.6 g/dL (14.0-18.0); Mean Corpuscular Hemoglobin 29.9 pg (25-34); Mean Corpuscular Hgb Conc 32.9 g/dL (32-36); Mean Corpuscular Volume 90.9 fL (80-100); RDW Coefficient of Variation 15.6 % (11.5-14.5); RDW Standard Deviation 51.8 fL (36.4-46.3); Red Blood Count 2.54 M/uL (4.7-6.1); White Blood Count 2.47 K/uL (4.8-10.8)
[2020-10-29 04:19] LABS: BUN Creatinine Ratio 24.1 (10-20); Calcium 8.2 mg/dl (8.5-10.1); Creatinine Clr Calc Pharmacy 173.1 ml/min; Est GFR (African American) 135.7; Est GFR (Non-African American) 117.1; Magnesium 1.8 mg/dl (1.8-2.4); Potassium 3.6 mmol/L (3.5-5.1)
[2020-10-29 04:25] LABS: Partial Thromboplastin Ratio 1.7; Partial Thromboplastin Time 44.5 Seconds (21.0-31.0)
[2020-10-29 04:26] LABS: Mean Platelet Volume 8.8 fL (7.4-10.4); Platelet Count 72 K/uL (130-400)
[2020-10-29] MEDS: SODIUM CHLORIDE 0.9% 1000ML 1,000 ML IV SCH ×2 (04:34→19:59)
--- NOTE | 2020-10-29 06:20 | Surgery Progress Note ---
Date of Service October 29, 2020 Assessment & Plan (1) Colonic obstruction: Patient's: Obstruction secondary to a known colon mass: He has had colonoscopy with colon stent placement on 2 occasions GI recommendations noted: GoLYTELY has been ordered to help decrease stool burden -Did not feel patient would be a candidate for a repeat colonoscopy with stent placement Patient develops worsening symptoms consideration should be given to performing a colostomy The patient's clinical status would be preferable to utilize surgical intervention as a last resort. We will continue to follow along for worsening symptoms. Admission and Anticipated Discharge Date Admission Date: October 28, 2020 Supervising Physician Co-Signing Physician Notes Patient seen and examined, labs and imaging reviewed, agree with above. 60-year-old male with metastatic colon cancer and history of stent placement admitted with possible colonic obstruction just distal to the stent. He received GoLYTELY yesterday after consultation with GI. He has had multiple soft formed bowel movements. He feels much better. On exam he is afebrile with stable vitals. His abdomen is soft, nontender, nondistended. His KUB shows no evidence of obstruction. Advance diet as tolerated, recommend low fiber diet as an outpatient. Of note, Dr. Law from GI does not feel that he would be a candidate for an additional stent. Therefore if he would begin to become obstructed he may benefit from a transverse colostomy. That is not necessary at this time. Subjective Patient denies any nausea vomiting. He notes he continues to have some abdominal pain on the left side which is slightly improved from yesterday. He does report having a bowel movement since yesterday. Discussed with nurse at bedside she verified the patient did have several bowel movements. She notes that his first bowel movement was somewhat formed with subsequent bowel movements primarily being loose/liquid. Physical Exam Gastrointestinal (Abdomen): Abdomen is slightly distended. Bowel sounds are present. There is no rebound tenderness or guarding. Patient does have pain with palpation noted on the left side of his abdomen. PG Care Time/CCT Total # of Minutes Spent Total Time Spent with Patient: Total time spent is greater than 50% in co ordination of care (as documented) at patient's floor/unit and/or counseling patient: Coding Level of Care Code 03446 Subseq Hosp Care Lvl 1 Diagnoses Colonic obstruction K56.609
--- NOTE | 2020-10-29 07:21 | Electrocardiogram Report ---
Test Reason : Blood Pressure : / mmHG Vent. Rate : 075 BPM Atrial Rate : 075 BPM P-R Int : 180 ms QRS Dur : 074 ms QT Int : 356 ms P-R-T Axes : 004 -31 036 degrees QTc Int : 397 ms Normal sinus rhythm Left axis deviation Septal infarct , age undetermined Abnormal ECG When compared with ECG of 25-SEP-2020 18:22, Septal infarct is now Present Confirmed by Munir Negrete ([id number]) on 10/29/2020 7:20:34 AM Referred By: REFERRED SELF Confirmed By:Munir Negrete
[2020-10-29] MEDS: MIDODRINE HCL 10 MG TAB PO SCH ×3 (07:37→17:19)
--- NOTE | 2020-10-29 08:05 | XRay Report ---
KUB CLINICAL HISTORY: Partial SBO COMPARISON STUDY: CT of the abdomen and pelvis and KUB October 28, 2020. FINDINGS: Incidental note is made of a calcified gallstone. The sigmoid colon is prominent. There is no convincing evidence for a high-grade colonic obstruction. Colonic stent is unchanged in position. Left renal calculus is incidentally noted. IMPRESSION: Colonic stent unchanged in position. No evidence for a high-grade colonic obstruction. ACT 112: Negative or not required by law. Electronically signed by: Manolo Amaral M.D. 10/29/2020 8:03 AM
[2020-10-29] MEDS: ADVANCED PROBIOTIC 1250 MG CAPSULE PO SCH (08:47)
[2020-10-29] MEDS: DOXYCYCLINE HYCLATE 100 MG CAP PO SCH ×2 (08:48→21:19)
[2020-10-29] MEDS: CYANOCOBALAMIN 500 MCG TABLET (VITAMIN B-12) PO SCH (08:48)
[2020-10-29] MEDS: DOCUSATE SODIUM/SENNA 50/8.6MG TAB PO SCH ×2 (08:48→21:20)
[2020-10-29] MEDS: MoRPHine SULFATE CR 15 MG TABCR PO SCH ×2 (08:49→21:58)
[2020-10-29] MEDS ORDERED: Nursing to Pharmacy Communication SCH (09:00)
[2020-10-29 11:31] LABS: Partial Thromboplastin Ratio 1.5; Partial Thromboplastin Time 39.5 Seconds (21.0-31.0)
[2020-10-29] MEDS: HEPARIN SODIUM/DEXTROSE 25,000 UNITS/500 ML BAG IV SCH ×2 (11:56→13:43)
--- NOTE | 2020-10-29 19:45 | Hospitalist Progress Note ---
Date of Service October 29, 2020 Assessment & Plan (1) Abdominal pain: Partial Small Bowel Obstruction -CT ABD:Stable position of the colonic stent extending across the sigmoid colon lesion. Mild increase in upstream colonic dilatation with moderate amount stool within the colon. A partial colonic obstruction may be present. Persistent rectal and colonic wall thickening with adjacent infiltration which suggests a nonspecific proctocolitis. Progression of pulmonary and lawson metastases with interval development of hepatic metastases. Cholelithiasis. Mild gallbladder distention. If right upper quadrant pain, ultrasound is recommended. Small amount of ascites. -H/O metastatic colon cancer S/P surgery and stent placement -Conservative management for now -kub ON 10/29/20:Colonic stent unchanged in position. No evidence for a high- grade colonic obstruction. -Continue gentle IV fluids -Appreciate GI, Surgery Input -Not a candidate for re stenting as per GI -If no improvement, may need diverting colostomy -Continue bowel regimen -Empirically on antibiotics -Advance diet as tolerated -Pain is controlled -Had multiple BMs today Metastatic colon cancer S/P Surgery Ongoing chemotherapy Follows with Dr. Meraz as outpatient Pancytopenia Immunocompromised patient Ongoing chemotherapy Monitor CBC daily Hb drop partly dilutional Left LE DVT/possible PE Was on weight-based Lovenox Hold Lovenox for now Continue IV heparin Monitor platelet count while on IV heparin Hypotension on midodrine DM II Hold PO meds HbA1C: 6.04 September 2020 Continue Insulin therapy Hyperlipidemia on statin Chronic pancytopenia Monitor CBC DVT Px: On IV Heparin Monitor Thrombocytopenia Code Status Full code Admission and Anticipated Discharge Date Admission Date: October 28, 2020 Subjective Patient is seen and examined at bedside States feeling better today Had bowel movements today Tolerates clear liquid diet Abdomen less distended today Denies nausea, vomiting, chest pain , SOB Offers no other complaints Review of Systems Review of Systems: All systems reviewed & are unremarkable except as noted in HPI & below Physical Exam Physical Exam: Physical Exam: Vitals signs as noted above General Appearance:Moderately built, Chronic ill appearing, no apparent distress Head: normocephalic, Atraumatic Eyes: normal inspection, EOMI Neck: supple, Trachea midline Respiratory/Chest: Normal breath sounds, CTA, +Chemo Port Cardiovascular: S1, S2, No murmur Abdomen/GI:Soft, non tender, normal Bowel sounds, +less distention Extremities/Musculoskeletal:normal inspection, no edema Neurologic/Psych:AAOX3, grossly no focal neurological deficits Skin: normal color, warm Results & Data Results & Data ([facility]) Vital Signs (Past 12 Hours) Vital Signs Temp Pulse Pulse Resp BP Pulse Ox 10/29/20 16:23 36.4 C L 92 H 16 105/71 97 10/29/20 11:55 62 102/64 Laboratory Results Short CBC 10/29/20 Range/Units 03:44 WBC 2.47 L (4.8-10.8) K/uL Hgb 7.6 L (14.0-18.0) g/dL Hct 23.1 L (42-52) % Plt Count 72 L (130-400) K/uL BMP 10/29/20 03:44 Sodium 137 Potassium 3.6 Chloride 106 Carbon Dioxide 29 BUN 12 Creatinine 0.49 L Glucose 129 H Calcium 8.2 L (1) Abdominal pain Abdominal location: generalized Qualified Code(s): R10.84 - Generalized abdominal pain
[2020-10-29 20:02] LABS: Partial Thromboplastin Ratio 1.8
[2020-10-29 20:04] LABS: Partial Thromboplastin Time 47.3 Seconds (21.0-31.0)
[2020-10-29] MEDS: MIRTAZAPINE TAB 15 MG TAB PO SCH (21:19)
[2020-10-30] MEDS: SODIUM CHLORIDE 0.9% 1000ML 1,000 ML IV SCH ×2 (00:17→21:04)
[2020-10-30] MEDS: PIPERACILLIN/TAZOBACTAM 3.375 GM in DEXTROSE 5% 100 ML IV SCH ×3 (00:17→18:42)
[2020-10-30] MEDS: HEPARIN SODIUM/DEXTROSE 25,000 UNITS/500 ML BAG IV SCH (04:14)
[2020-10-30] MEDS: MIDODRINE HCL 10 MG TAB PO SCH ×3 (07:23→18:41)
[2020-10-30 08:30] LABS: Hematocrit (blood only) 22.9 % (42-52); Hemoglobin 7.4 g/dL (14.0-18.0); Mean Corpuscular Hemoglobin 29.5 pg (25-34); Mean Corpuscular Hgb Conc 32.3 g/dL (32-36); Mean Corpuscular Volume 91.2 fL (80-100); RDW Coefficient of Variation 15.2 % (11.5-14.5); RDW Standard Deviation 51.3 fL (36.4-46.3); Red Blood Count 2.51 M/uL (4.7-6.1); White Blood Count 1.35 K/uL (4.8-10.8)
[2020-10-30 08:34] LABS: Mean Platelet Volume 9.2 fL (7.4-10.4); Platelet Count 67 K/uL (130-400)
[2020-10-30 08:52] LABS: Eosinophils # (auto) 0.04 K/uL (0-0.5); Immature Granulocytes # (auto) 0.01 K/uL (0.00-0.02); Immature Granulocytes % (auto) 0.7 %; Lymphocytes # (auto) 0.55 K/uL (1.2-3.4); Lymphocytes % (auto) 40.7 %; Monocytes # (auto) 0.03 K/uL (0.11-0.59); Monocytes % (auto) 2.2 %; Neutrophils # (auto) 0.72 K/uL (1.4-6.5); Neutrophils % (auto) 53.4 %
--- NOTE | 2020-10-30 08:54 | XRay Report ---
KUB HISTORY: Partial bowel obstruction. Follow-up. COMPARISON: KUB 10/29/2020. FINDINGS: There is again noted to colonic stents within the left lower quadrant. No change in the dil ated gas-filled sigmoid colon within the midabdomen measuring up to 9.3 cm. Borderline cholelithiasis . Dilated gas-filled loops of small bowel remain unchanged. Left-sided nephrolithiasis, unchanged. N o pneumoperitoneum or pneumatosis. IMPRESSION: 1. No significant change in the mildly dilated gas-filled sigmoid colon measuring up to 9.3 cm in caroline meter. 2. The left lower quadrant colonic stents are unchanged in position. ACT 112: Negative or not required by law. Electronically signed by: Samuel Shook M.D. 10/30/2020 8:53 AM
[2020-10-30 08:55] LABS: Partial Thromboplastin Time 52.4 Seconds (21.0-31.0)
[2020-10-30 09:06] LABS: BUN Creatinine Ratio 11.5 (10-20); Calcium 8.7 mg/dl (8.5-10.1); Creatinine Clr Calc Pharmacy 163.1 ml/min; Est GFR (African American) 132.5; Est GFR (Non-African American) 114.3; Magnesium 1.7 mg/dl (1.8-2.4); Potassium 3.2 mmol/L (3.5-5.1)
[2020-10-30] MEDS ORDERED: POTASSIUM CHLORIDE PWD 20 MEQ PACK PO ONE (09:25)
[2020-10-30] MEDS ORDERED: MAGNESIUM SULFATE / D5W 1 GM/100 ML BAG IV ONE (09:45)
[2020-10-30] MEDS: DOCUSATE SODIUM/SENNA 50/8.6MG TAB PO SCH ×2 (10:08→21:03)
[2020-10-30] MEDS: ADVANCED PROBIOTIC 1250 MG CAPSULE PO SCH (10:08)
[2020-10-30] MEDS: DOXYCYCLINE HYCLATE 100 MG CAP PO SCH ×2 (10:08→21:03)
[2020-10-30] MEDS: CYANOCOBALAMIN 500 MCG TABLET (VITAMIN B-12) PO SCH (10:08)
[2020-10-30] MEDS: INSULIN ASPART 100 UNITS/ML 3 ML PEN SC SCH ×4 (10:10→21:06)
--- NOTE | 2020-10-30 10:55 | Gastroenterology Progress Note ---
Date of Service October 30, 2020 Assessment & Plan (1) Colonic obstruction: (2) Colon cancer: Pt is a 60 y/o male w colon ca s/p colonic stents placement admitted w colonic obstruction. He is doing well now, bowels moving well, passing flatus and no n/v. KUB reviewed - Bowel regimen daily: Miralax 17g daily + Colace 200mg daily - Low residue diet - GI sign off Admission and Anticipated Discharge Date Admission Date: October 28, 2020 Supervising Physician Co-Signing Physician Notes I have seen and examined the patient and discussed the management with TALIA Russell. 60 yo male with a history of colonic stent in stent placement. Moving his bowels today and tolerating a diet. PE patient without plans, abd soft nt Agree with further plan of care of bowel regimen and diet. Subjective Pt had multiple BMs and is passing flatus, denies abd pain, n/v Review of Systems Review of Systems: All systems reviewed & are unremarkable except as noted in HPI & below Physical Exam Constitutional: WD/WN, vitals as above well groomed, cooperative and comfortable Eyes: PERRL, conjunctivae normal, anicteric sclerae ENMT: external ear and nose normal, oropharynx normal Respiratory: normal respiratory effort, lungs clear to auscultation Cardiovascular: RRR, no murmur, no edema Gastrointestinal (Abdomen): normal bowel sounds, soft, nontender, no hepatosplenomegaly Skin: no rashes, warm and dry no jaundice Psychiatric: A+Ox3, euthymic affect Lymphatic: no lymphedema Results & Data ([facility]) Vital Signs (Past 12 Hours) Vital Signs Temp Pulse Resp BP Pulse Ox 10/30/20 07:21 36.4 C L 68 16 116/73 97 (1) Colon cancer Colon location: unspecified part of colon Qualified Code(s): C18.9 - Malignant neoplasm of colon, unspecified
--- NOTE | 2020-10-30 10:56 | Surgery Progress Note ---
Date of Service October 30, 2020 Assessment & Plan (1) Colonic obstruction: improved can advance to full liquids/Boost Admission and Anticipated Discharge Date Admission Date: October 28, 2020 Supervising Physician Co-Signing Physician Notes Patient seen and examined, agree with above. Metastatic colon cancer with history of colon stent x2 presented with possible partial colon obstruction. He has responded to a good bowel regimen. He is tolerating clears. On exam he is afebrile stable vitals. Abdomen soft, nondistended, nontender. Advance to low fiber diet, continue good bowel regimen. If he continues to have symptoms or signs of obstruction over the next few weeks to months, consider transverse diverting colostomy. Now would not be the time due to his neutropenia and gram- positive cocci in his blood. Surgery will follow peripherally, call with questions or concerns. Subjective having loose/liquid BMs, tolerating clears Physical Exam Gastrointestinal (Abdomen): Inspection/Auscultation: + abdomen distended (slightly) Percussion/Palpation: abdomen soft; abdomen nontender Results & Data ([facility]) Vital Signs (Past 12 Hours) Vital Signs Temp Pulse Resp BP Pulse Ox 10/30/20 07:21 36.4 C L 68 16 116/73 97 PG Care Time/CCT Total # of Minutes Spent Total Time Spent with Patient: Total time spent is greater than 50% in coordination of care (as documented) at patient's floor/unit and/or counseling patient: Coding Level of Care Code 72421 Subseq Hosp Care Lvl 1 Diagnoses Colonic obstruction K56.609
[2020-10-30] MEDS ORDERED: DOCUSATE SODIUM 100 MG CAP PO SCH (11:00)
[2020-10-30] MEDS: POTASSIUM CHLORIDE / WTR 10 MEQ/100 ML PLCT IV SCH ×2 (11:10→12:25)
[2020-10-30] MEDS: MoRPHine SULFATE CR 15 MG TABCR PO SCH ×2 (11:10→21:03)
[2020-10-30] MEDS: POLYETHYLENE (MIRALAX) 17 GM PACK PO SCH (11:29)
[2020-10-30] MEDS ORDERED: MoRPHine SULFATE 2 MG/ML CARP IV PRN (13:07)
[2020-10-30] MEDS ORDERED: ALUMINUM/MAGNESIUM/SIMETH (MAALOX MAX) 30 ML UDC PO PRN (13:08)
[2020-10-30] MEDS ORDERED: ENOXAPARIN 100 MG/1ML SYR SQ SCH (13:15)
[2020-10-30] MEDS ORDERED: SODIUM CHLORIDE 0.9% 250 ML IV PRN (14:12)
[2020-10-30 14:33] LABS: Hematocrit (blood only) 24.4 % (42-52); Hemoglobin 7.9 g/dL (14.0-18.0)
[2020-10-30] MEDS: PANTOprazole 40 MG in SYRINGE 0 ML IV SCH ×2 (15:21→21:03)
--- NOTE | 2020-10-30 18:08 | Hospitalist Progress Note ---
Date of Service October 30, 2020 Assessment & Plan (1) Abdominal pain: Partial Small Bowel Obstruction -CT ABD:Stable position of the colonic stent extending across the sigmoid colon lesion. Mild increase in upstream colonic dilatation with moderate amount stool within the colon. A partial colonic obstruction may be present. Persistent rectal and colonic wall thickening with adjacent infiltration which suggests a nonspecific proctocolitis. Progression of pulmonary and lawson metastases with interval development of hepatic metastases. Cholelithiasis. Mild gallbladder distention. If right upper quadrant pain, ultrasound is recommended. Small amount of ascites. -H/O metastatic colon cancer S/P surgery and stent placement -Conservative management for now -kub ON 10/29/20:Colonic stent unchanged in position. No evidence for a high- grade colonic obstruction. -Continue gentle IV fluids -Appreciate GI, Surgery Input -Not a candidate for re stenting as per GI -If no improvement, may need diverting colostomy -Continue bowel regimen -Empirically on antibiotics -Had bowel movements today -Low residue diet when appropriate Rectal Bleeding H/O Hemorrhoids as per patient Anticoagulation held Monitor H&H with PRBCs as needed GI on board Rule out Bacteremia Blood culture: 07/08: Gram-positive cocci in chains Repeat blood culture pending ECHO: No valvular lesions consistent with endocarditis on echo Continue empiric antibiotics as above Metastatic colon cancer S/P Surgery Ongoing chemotherapy Follows with Dr. Meraz as outpatient Pancytopenia Neutropenia Likely Chemotherapy induced pancytopenia Immunocompromised patient Neutropenic precautions Ongoing chemotherapy Monitor CBC daily Left LE DVT/possible PE Was on weight-based Lovenox Hold Lovenox for now Re: Rectal Bleeding Hypotension on midodrine DM II Hold PO meds HbA1C: 6.04 September 2020 Continue Insulin therapy Hyperlipidemia on statin Chronic pancytopenia Monitor CBC DVT Px: SCDs: Re: Rectal bleeding Monitor Thrombocytopenia Code Status Full code Admission and Anticipated Discharge Date Admission Date: October 28, 2020 Subjective Patient is seen and examined at bedside Had rectal bleeding today States feeling bloated Had bowel movement today Had some abdominal discomfort Denies nausea, vomiting, chest pain , SOB Review of Systems Review of Systems: All systems reviewed & are unremarkable except as noted in HPI & below Physical Exam Physical Exam: Physical Exam: Vitals signs as noted above General Appearance:Moderately built, Chronic ill appearing, no apparent distress Head: normocephalic, Atraumatic Eyes: normal inspection, EOMI Neck: supple, Trachea midline Respiratory/Chest: Normal breath sounds, CTA, +Chemo Port Cardiovascular: S1, S2, No murmur Abdomen/GI:Soft, non tender, normal Bowel sounds, +less distention Extremities/Musculoskeletal:normal inspection, no edema Neurologic/Psych:AAOX3, grossly no focal neurological deficits Skin: normal color, warm Results & Data Results & Data ([facility]) Vital Signs (Past 12 Hours) Vital Signs Temp Pulse Pulse Resp BP BP Pulse Ox 10/30/20 15:25 36.5 C 64 16 118/71 100 10/30/20 12:30 114/74 10/30/20 07:21 36.4 C L 68 16 116/73 97 Laboratory Results Short CBC 10/30/20 10/30/20 Range/Units 07:54 14:16 WBC 1.35 L (4.8-10.8) K/uL Hgb 7.4 L 7.9 L (14.0-18.0) g/dL Hct 22.9 L 24.4 L (42-52) % Plt Count 67 L (130-400) K/uL BMP 10/30/20 07:54 Sodium 140 Potassium 3.2 L Chloride 107 Carbon Dioxide 27 BUN 6 L D Creatinine 0.52 L Glucose 110 H Calcium 8.7 (1) Abdominal pain Abdominal location: generalized Qualified Code(s): R10.84 - Generalized abdominal pain
[2020-10-30 20:20] LABS: Hemoglobin 7.8 g/dL (14.0-18.0)
[2020-10-30] MEDS: MIRTAZAPINE TAB 15 MG TAB PO SCH (21:03)
[2020-10-30] MEDS: HEPARIN 100 UNIT/ML 5ML FLUSH FLUSH PRN (22:35)
[2020-10-31] MEDS: PIPERACILLIN/TAZOBACTAM 3.375 GM in DEXTROSE 5% 100 ML IV SCH ×3 (01:10→16:12)
[2020-10-31 01:52] LABS: Hematocrit (blood only) 21.7 % (42-52); Mean Corpuscular Hemoglobin 29.3 pg (25-34); Mean Corpuscular Hgb Conc 32.3 g/dL (32-36); Mean Corpuscular Volume 90.8 fL (80-100); RDW Coefficient of Variation 14.9 % (11.5-14.5); RDW Standard Deviation 49.6 fL (36.4-46.3); Red Blood Count 2.39 M/uL (4.7-6.1); White Blood Count 2.13 K/uL (4.8-10.8)
[2020-10-31 02:00] LABS: Mean Platelet Volume 8.7 fL (7.4-10.4); Platelet Count 78 K/uL (130-400)
[2020-10-31 02:06] LABS: Partial Thromboplastin Time 25.3 Seconds (21.0-31.0)
[2020-10-31 02:11] LABS: BUN Creatinine Ratio 14.7 (10-20); Calcium 8.2 mg/dl (8.5-10.1); Est GFR (African American) 147.5; Est GFR (Non-African American) 127.3; Magnesium 1.9 mg/dl (1.8-2.4); Potassium 3.6 mmol/L (3.5-5.1)
[2020-10-31 02:21] LABS: Eosinophils # (auto) 0.06 K/uL (0-0.5); Eosinophils % (auto) 2.8 %; Giant Platelets 1+; Immature Granulocytes # (auto) 0.02 K/uL (0.00-0.02); Immature Granulocytes % (auto) 0.9 %; Lymphocytes # (auto) 0.82 K/uL (1.2-3.4); Lymphocytes % (auto) 38.5 %; Monocytes # (auto) 0.14 K/uL (0.11-0.59); Monocytes % (auto) 6.6 %; Neutrophils # (auto) 1.09 K/uL (1.4-6.5); Neutrophils % (auto) 51.2 %
[2020-10-31] MEDS: HEPARIN 100 UNIT/ML 5ML FLUSH FLUSH PRN ×2 (04:44→20:09)
--- NOTE | 2020-10-31 07:33 | Surgery Progress Note ---
Date of Service October 31, 2020 Assessment & Plan (1) Colonic obstruction: improved can advance to regular diet HGb 7.0, WBC 2 Admission and Anticipated Discharge Date Admission Date: October 28, 2020 Supervising Physician Co-Signing Physician Notes Agree with above. Having bowel movements and tolerating diet. Advance to low fiber. Patient may eventually need diverting loop transverse colostomy, but at this point he is not a good candidate given his current condition. Surgery will follow peripherally. Subjective bowels moving, tolerating full liquid diet Physical Exam Gastrointestinal (Abdomen): Inspection/Auscultation: + abdomen distended (less) Percussion/Palpation: abdomen soft; abdomen nontender Results & Data ([facility]) Vital Signs (Past 12 Hours) Vital Signs Temp Pulse Resp BP Pulse Ox 10/30/20 22:27 36.8 C 68 16 107/65 98 PG Care Time/CCT Total # of Minutes Spent Total Time Spent with Patient: Total time spent is greater than 50% in coordination of care (as documented) at patient's floor/unit and/or counseling patient: Coding Level of Care Code 68316 Subseq Hosp Care Lvl 1 Diagnoses Colonic obstruction K56.609
[2020-10-31 08:30] LABS: Hematocrit (blood only) 22.3 % (42-52); Hemoglobin 7.2 g/dL (14.0-18.0)
[2020-10-31] MEDS: MIDODRINE HCL 10 MG TAB PO SCH ×3 (08:36→16:12)
[2020-10-31] MEDS: DOCUSATE SODIUM/SENNA 50/8.6MG TAB PO SCH ×2 (08:36→21:32)
[2020-10-31] MEDS: DOXYCYCLINE HYCLATE 100 MG CAP PO SCH ×2 (08:36→21:32)
[2020-10-31] MEDS: CYANOCOBALAMIN 500 MCG TABLET (VITAMIN B-12) PO SCH (08:36)
[2020-10-31] MEDS: ADVANCED PROBIOTIC 1250 MG CAPSULE PO SCH (08:37)
[2020-10-31] MEDS: POLYETHYLENE (MIRALAX) 17 GM PACK PO SCH (08:37)
[2020-10-31] MEDS: PANTOprazole 40 MG in SYRINGE 0 ML IV SCH (08:37)
[2020-10-31] MEDS: INSULIN ASPART 100 UNITS/ML 3 ML PEN SC SCH ×4 (08:39→22:20)
[2020-10-31] MEDS: MoRPHine SULFATE CR 15 MG TABCR PO SCH ×2 (08:48→21:39)
[2020-10-31] MEDS ORDERED: SODIUM CHLORIDE 0.9% 250 ML IV PRN (09:45)
[2020-10-31] MEDS: HYDROCORTISONE HC 2.5% CRM 30GM TUBE EXT SCH ×2 (10:56→21:32)
[2020-10-31 15:38] LABS: Hematocrit (blood only) 25.5 % (42-52); Hemoglobin 8.5 g/dL (14.0-18.0)
--- NOTE | 2020-10-31 16:33 | Hospitalist Progress Note ---
Date of Service October 31, 2020 Assessment & Plan (1) Abdominal pain: Partial Small Bowel Obstruction -CT ABD:Stable position of the colonic stent extending across the sigmoid colon lesion. Mild increase in upstream colonic dilatation with moderate amount stool within the colon. A partial colonic obstruction may be present. Persistent rectal and colonic wall thickening with adjacent infiltration which suggests a nonspecific proctocolitis. Progression of pulmonary and lawson metastases with interval development of hepatic metastases. Cholelithiasis. Mild gallbladder distention. If right upper quadrant pain, ultrasound is recommended. Small amount of ascites. -H/O metastatic colon cancer S/P surgery and stent placement -Conservative management for now -kub ON 10/29/20:Colonic stent unchanged in position. No evidence for a high- grade colonic obstruction. -Continue gentle IV fluids -Appreciate GI, Surgery Input -Not a candidate for re stenting as per GI -If no improvement, may need diverting colostomy -Continue bowel regimen -Empirically on antibiotics -Had bowel movements today -Advance to Low residue diet today Rectal Bleeding H/O Hemorrhoids as per patient Anticoagulation held Monitor H&H with PRBCs as needed GI on board S/P 1 Unit PRBCs Rule out Bacteremia Blood culture: 07/08: Strep Species Repeat blood culture: No growth ECHO: No valvular lesions consistent with endocarditis on echo Continue empiric antibiotics as above Metastatic colon cancer S/P Surgery Ongoing chemotherapy Follows with Dr. Meraz as outpatient Pancytopenia Neutropenia Likely Chemotherapy induced pancytopenia Immunocompromised patient Neutropenic precautions Ongoing chemotherapy Monitor CBC daily Left LE DVT/possible PE Was on weight-based Lovenox Hold Lovenox for now Re: Rectal Bleeding Hypotension on midodrine DM II Hold PO meds HbA1C: 6.04 September 2020 Continue Insulin therapy Hyperlipidemia on statin Chronic pancytopenia Monitor CBC DVT Px: SCDs: Re: Rectal bleeding Monitor Thrombocytopenia Code Status Full code Admission and Anticipated Discharge Date Admission Date: October 28, 2020 Subjective Patient is seen and examined at bedside No recurrence of rectal bleeding today Had bowel movement Tolerating diet Denies nausea, vomiting abdominal pain, chest pain , SOB Review of Systems Review of Systems: All systems reviewed & are unremarkable except as noted in HPI & below Physical Exam Physical Exam: Physical Exam: Vitals signs as noted above General Appearance:Moderately built, Chronic ill appearing, no apparent distress Head: normocephalic, Atraumatic Eyes: normal inspection, EOMI Neck: supple, Trachea midline Respiratory/Chest: Normal breath sounds, CTA, +Chemo Port Cardiovascular: S1, S2, No murmur Abdomen/GI:Soft, non tender, normal Bowel sounds, +less distention Extremities/Musculoskeletal:normal inspection, no edema Neurologic/Psych:AAOX3, grossly no focal neurological deficits Skin: normal color, warm Results & Data Results & Data ([facility]) Vital Signs (Past 12 Hours) Vital Signs Temp Pulse Pulse Resp BP BP BP 10/31/20 15:44 36.8 C 63 16 101/67 10/31/20 14:21 36.9 C 69 18 101/65 10/31/20 13:51 36.9 C 69 18 101/65 10/31/20 12:51 36.7 C 75 18 103/67 10/31/20 12:21 36.8 C 71 18 99/62 L 10/31/20 11:51 36.8 C 72 18 96/62 L 10/31/20 11:21 36.8 C 74 18 103/67 10/31/20 11:06 36.5 C 75 18 101/64 10/31/20 10:47 36.6 C 73 16 102/66 10/31/20 07:49 36.6 C 63 18 107/68 Pulse Ox 10/31/20 15:44 97 10/31/20 14:21 10/31/20 13:51 10/31/20 12:51 10/31/20 12:21 10/31/20 11:51 10/31/20 11:21 10/31/20 11:06 10/31/20 10:47 10/31/20 07:49 98 Laboratory Results Short CBC 10/30/20 10/31/20 10/31/20 Range/Units 20:10 01:35 07:57 WBC 2.13 L (4.8-10.8) K/uL Hgb 7.8 L 7.0 L 7.2 L (14.0-18.0) g/dL Hct 24.0 L 21.7 L 22.3 L (42-52) % Plt Count 78 L (130-400) K/uL 10/31/20 Range/Units 15:25 WBC (4.8-10.8) K/uL Hgb 8.5 L (14.0-18.0) g/dL Hct 25.5 L (42-52) % Plt Count (130-400) K/uL BMP 10/31/20 01:35 Sodium 140 Potassium 3.6 Chloride 110 H Carbon Dioxide 25 BUN 6 L Creatinine 0.40 L Glucose 97 Calcium 8.2 L (1) Abdominal pain Abdominal location: generalized Qualified Code(s): R10.84 - Generalized abdominal pain
[2020-10-31] MEDS: MIRTAZAPINE TAB 15 MG TAB PO SCH (21:32)
[2020-10-31 23:17] LABS: Hemoglobin 8.6 g/dL (14.0-18.0)
[2020-11-01] MEDS: PIPERACILLIN/TAZOBACTAM 3.375 GM in DEXTROSE 5% 100 ML IV SCH ×3 (00:56→16:15)
[2020-11-01] MEDS: HEPARIN 100 UNIT/ML 5ML FLUSH FLUSH PRN ×2 (05:26→20:16)
[2020-11-01 06:17] LABS: Hemoglobin 8.2 g/dL (14.0-18.0); Mean Corpuscular Hemoglobin 29.3 pg (25-34); Mean Corpuscular Hgb Conc 32.8 g/dL (32-36); Mean Corpuscular Volume 89.3 fL (80-100); RDW Coefficient of Variation 15.7 % (11.5-14.5); RDW Standard Deviation 51.1 fL (36.4-46.3); White Blood Count 1.86 K/uL (4.8-10.8)
[2020-11-01 06:23] LABS: Mean Platelet Volume 9.3 fL (7.4-10.4); Platelet Count 65 K/uL (130-400)
[2020-11-01 06:34] LABS: Partial Thromboplastin Ratio 1.1; Partial Thromboplastin Time 27.7 Seconds (21.0-31.0)
[2020-11-01 06:46] LABS: BUN Creatinine Ratio 17.4 (10-20); Calcium 9.1 mg/dl (8.5-10.1); Creatinine Clr Calc Pharmacy 163.1 ml/min; Est GFR (African American) 132.5; Est GFR (Non-African American) 114.3; Magnesium 1.7 mg/dl (1.8-2.4); Potassium 3.6 mmol/L (3.5-5.1)
[2020-11-01 06:51] LABS: Eosinophils # (auto) 0.07 K/uL (0-0.5); Eosinophils % (auto) 3.8 %; Immature Granulocytes # (auto) 0.01 K/uL (0.00-0.02); Immature Granulocytes % (auto) 0.5 %; Lymphocytes # (auto) 0.72 K/uL (1.2-3.4); Lymphocytes % (auto) 38.7 %; Monocytes # (auto) 0.14 K/uL (0.11-0.59); Monocytes % (auto) 7.5 %; Neutrophils # (auto) 0.92 K/uL (1.4-6.5); Neutrophils % (auto) 49.5 %; RBC Morphology Unremarkable
[2020-11-01] MEDS: DOXYCYCLINE HYCLATE 100 MG CAP PO SCH ×2 (07:57→20:56)
[2020-11-01] MEDS: MIDODRINE HCL 10 MG TAB PO SCH ×3 (07:58→17:55)
[2020-11-01] MEDS: ADVANCED PROBIOTIC 1250 MG CAPSULE PO SCH (07:58)
[2020-11-01] MEDS: DOCUSATE SODIUM/SENNA 50/8.6MG TAB PO SCH ×2 (07:58→20:56)
[2020-11-01] MEDS: CYANOCOBALAMIN 500 MCG TABLET (VITAMIN B-12) PO SCH (07:59)
[2020-11-01] MEDS: HYDROCORTISONE HC 2.5% CRM 30GM TUBE EXT SCH ×2 (07:59→20:58)
[2020-11-01] MEDS: POLYETHYLENE (MIRALAX) 17 GM PACK PO SCH (08:00)
[2020-11-01] MEDS: MoRPHine SULFATE CR 15 MG TABCR PO SCH ×2 (08:07→20:55)
[2020-11-01] MEDS: INSULIN ASPART 100 UNITS/ML 3 ML PEN SC SCH ×4 (09:06→21:02)
--- NOTE | 2020-11-01 12:31 | Hospitalist Progress Note ---
Date of Service November 01, 2020 Assessment & Plan (1) Abdominal pain: Partial Small Bowel Obstruction -CT ABD:Stable position of the colonic stent extending across the sigmoid colon lesion. Mild increase in upstream colonic dilatation with moderate amount stool within the colon. A partial colonic obstruction may be present. Persistent rectal and colonic wall thickening with adjacent infiltration which suggests a nonspecific proctocolitis. Progression of pulmonary and lawson metastases with interval development of hepatic metastases. Cholelithiasis. Mild gallbladder distention. If right upper quadrant pain, ultrasound is recommended. Small amount of ascites. -H/O metastatic colon cancer S/P surgery and stent placement -Conservative management for now -kub ON 10/29/20:Colonic stent unchanged in position. No evidence for a high- grade colonic obstruction. -Continue gentle IV fluids -Not a candidate for re stenting as per GI - +BMs -Continue bowel regimen -Empirically on antibiotics -Had bowel movements today -Advance to Low residue diet today Rectal Bleeding H/O Hemorrhoids as per patient Anticoagulation held Monitor H&H with PRBCs as needed GI on board S/P 1 Unit PRBCs Rule out Bacteremia Blood culture: 07/08: Strep Species Enterococcus Repeat blood culture: No growth ECHO: No valvular lesions consistent with endocarditis on echo Continue empiric antibiotics as above Metastatic colon cancer S/P Surgery Ongoing chemotherapy Follows with Dr. Meraz as outpatient Pancytopenia Neutropenia Chemotherapy induced pancytopenia Immunocompromised patient Neutropenic precautions Ongoing chemotherapy Monitor CBC daily Left LE DVT/possible PE Was on weight-based Lovenox Hold Lovenox for now Re: Rectal Bleeding Hypotension on midodrine DM II Hold PO meds HbA1C: 6.04 September 2020 Continue Insulin therapy Hyperlipidemia on statin Chronic pancytopenia Monitor CBC DVT Px: SCDs: Re: Rectal bleeding Monitor Thrombocytopenia Code Status Full code Labs Checked ROS-No Headache, No Visual Changes, No Nausea, No Vomiting, No Fever, No Chills, No Neck Pain or Stiffness, No Chest Pain, No Palpitations, No SOB, No CARVAJAL, No Cough, No Sputum, No Wheezing, No Abdominal Pain, No Diarrhea, No Hematemesis, No Hemoptysis, No Unexpected Weight Loss, No Flank pain, No Melena, No Hematochezia, No Frequency, No Urgency, No Burning, No Hematuria, No Rashes, No Diaphoresis. Appetite is Normal Physical Exam Gen-AAO x 3, NAD, Afebrile Head-NCAT, EOMI, PERRLA, Anicteric Sclera, No Posterior Pharyngeal Erythema Neck-Supple, No JVD, No Thyromegaly, No Masses, No LAD, No Bruits Lungs-Clear to Auscultation Bilaterally, No Rales, No Rhonchi, No Wheezing, No Crepitus Chest-No S4, +S1, +S2, No S3, No Murmurs, No Rubs, No Gallops, No Ectopy Abdomen-Soft, Bowel Sounds Present, Non Tender, Non Distended, No Hepatomegaly, No Splenomegaly, No Palpable Masses, No Rebound, No Rigidity, No Guarding Musculoskeletal-Full Range of Motion Bilaterally, No CVAT Extremities-No Cyanosis, No Clubbing, No Edema Nuero-Cranial Nerves II-XII grossly intact, Motor WNL, DTRs WNL, Strength WNL, Non Focal Psych-Normal Mood Admission and Anticipated Discharge Date Admission Date: October 28, 2020 Results & Data Results & Data ([facility]) Vital Signs (Past 12 Hours) Vital Signs Temp Pulse Resp BP Pulse Ox 11/01/20 07:35 36.7 C 67 16 107/70 96 (1) Abdominal pain Abdominal location: generalized Qualified Code(s): R10.84 - Generalized abdominal pain
[2020-11-01] MEDS: MAGNESIUM OXIDE 400 MG TAB PO SCH (20:56)
[2020-11-01] MEDS: MIRTAZAPINE TAB 15 MG TAB PO SCH (20:56)
[2020-11-02] MEDS: PIPERACILLIN/TAZOBACTAM 3.375 GM in DEXTROSE 5% 100 ML IV SCH ×2 (00:19→08:26)
[2020-11-02 06:22] LABS: Hematocrit (blood only) 25.5 % (42-52); Hemoglobin 8.4 g/dL (14.0-18.0); Mean Corpuscular Hemoglobin 29.6 pg (25-34); Mean Corpuscular Hgb Conc 32.9 g/dL (32-36); Mean Corpuscular Volume 89.8 fL (80-100); RDW Coefficient of Variation 15.6 % (11.5-14.5); RDW Standard Deviation 50.7 fL (36.4-46.3); Red Blood Count 2.84 M/uL (4.7-6.1); White Blood Count 2.29 K/uL (4.8-10.8)
[2020-11-02 06:24] LABS: Mean Platelet Volume 9.4 fL (7.4-10.4); Platelet Count 76 K/uL (130-400)
[2020-11-02 06:31] LABS: Partial Thromboplastin Ratio 1.4; Partial Thromboplastin Time 35.7 Seconds (21.0-31.0)
[2020-11-02 07:00] LABS: Albumin Level 2.6 gm/dl (3.4-5.0); BUN Creatinine Ratio 19.7 (10-20); Calcium 8.6 mg/dl (8.5-10.1); Creatinine Clr Calc Pharmacy 143.7 ml/min; Est GFR (African American) 125.8; Est GFR (Non-African American) 108.5; Potassium 3.7 mmol/L (3.5-5.1)
[2020-11-02 07:03] LABS: Albumin Globulin Ratio 0.7 (0.9-2); Bilirubin,Total 0.4 mg/dl (0.2-1); Globulin 3.5 gm/dl (2.5-4.0); Total Protein 6.1 gm/dl (6.4-8.2)
[2020-11-02 07:05] LABS: Eosinophils # (auto) 0.08 K/uL (0-0.5); Eosinophils % (auto) 3.5 %; Immature Granulocytes # (auto) 0.01 K/uL (0.00-0.02); Immature Granulocytes % (auto) 0.4 %; Lymphocytes # (auto) 0.81 K/uL (1.2-3.4); Lymphocytes % (auto) 35.4 %; Monocytes # (auto) 0.19 K/uL (0.11-0.59); Monocytes % (auto) 8.3 %; Neutrophils % (auto) 52.4 %
[2020-11-02] MEDS: DOXYCYCLINE HYCLATE 100 MG CAP PO SCH (08:17)
[2020-11-02] MEDS: MAGNESIUM OXIDE 400 MG TAB PO SCH ×2 (08:17→20:45)
[2020-11-02] MEDS: DOCUSATE SODIUM/SENNA 50/8.6MG TAB PO SCH ×2 (08:18→20:44)
[2020-11-02] MEDS: ADVANCED PROBIOTIC 1250 MG CAPSULE PO SCH (08:18)
[2020-11-02] MEDS: MIDODRINE HCL 10 MG TAB PO SCH ×3 (08:19→18:28)
[2020-11-02] MEDS: CYANOCOBALAMIN 500 MCG TABLET (VITAMIN B-12) PO SCH (08:19)
[2020-11-02] MEDS: MoRPHine SULFATE CR 15 MG TABCR PO SCH ×2 (08:26→20:44)
[2020-11-02] MEDS: POLYETHYLENE (MIRALAX) 17 GM PACK PO SCH (08:26)
[2020-11-02] MEDS: HYDROCORTISONE HC 2.5% CRM 30GM TUBE EXT SCH ×2 (08:41→20:49)
[2020-11-02] MEDS: INSULIN ASPART 100 UNITS/ML 3 ML PEN SC SCH ×4 (08:41→20:47)
--- NOTE | 2020-11-02 09:39 | Hospitalist Progress Note ---
Date of Service November 02, 2020 Assessment & Plan (1) Abdominal pain: Partial Small Bowel Obstruction -CT ABD:Stable position of the colonic stent extending across the sigmoid colon lesion. Mild increase in upstream colonic dilatation with moderate amount stool within the colon. A partial colonic obstruction may be present. Persistent rectal and colonic wall thickening with adjacent infiltration which suggests a nonspecific proctocolitis. Progression of pulmonary and lawson metastases with interval development of hepatic metastases. Cholelithiasis. Mild gallbladder distention. If right upper quadrant pain, ultrasound is recommended. Small amount of ascites. -H/O metastatic colon cancer S/P surgery and stent placement -Conservative management for now -kub ON 10/29/20:Colonic stent unchanged in position. No evidence for a high- grade colonic obstruction. -Continue gentle IV fluids -Not a candidate for re stenting as per GI - +BMs -Continue bowel regimen -On Unasyn per ID today -Had bowel movements today -Advance to Low residue diet today Rectal Bleeding H/O Hemorrhoids as per patient Anticoagulation held Monitor H&H with PRBCs as needed GI on board S/P 1 Unit PRBCs Rule out Bacteremia Blood culture: noted Repeat blood culture: No growth from 10/30 ECHO: No valvular lesions consistent with endocarditis on echo Metastatic colon cancer S/P Surgery Ongoing chemotherapy Follows with Dr. Meraz as outpatient Pancytopenia Neutropenia Chemotherapy induced pancytopenia Immunocompromised patient Neutropenic precautions Ongoing chemotherapy Monitor CBC daily Left LE DVT/possible PE Was on weight-based Lovenox Hold Lovenox for now Re: Rectal Bleeding Hypotension on midodrine DM II Hold PO meds HbA1C: 6.04 September 2020 Continue Insulin therapy Hyperlipidemia on statin Chronic pancytopenia Monitor CBC DVT Px: SCDs: Re: Rectal bleeding Monitor Thrombocytopenia Code Status Full code Labs Checked ROS-No Headache, No Visual Changes, No Nausea, No Vomiting, No Fever, No Chills, No Neck Pain or Stiffness, No Chest Pain, No Palpitations, No SOB, No CARVAJAL, No Cough, No Sputum, No Wheezing, No Abdominal Pain, No Diarrhea, No Hematemesis, No Hemoptysis, No Unexpected Weight Loss, No Flank pain, No Melena, No Hematochezia, No Frequency, No Urgency, No Burning, No Hematuria, No Rashes, No Diaphoresis. Appetite is Normal Physical Exam Gen-AAO x 3, NAD, Afebrile Head-NCAT, EOMI, PERRLA, Anicteric Sclera, No Posterior Pharyngeal Erythema Neck-Supple, No JVD, No Thyromegaly, No Masses, No LAD, No Bruits Lungs-Clear to Auscultation Bilaterally, No Rales, No Rhonchi, No Wheezing, No Crepitus Chest-No S4, +S1, +S2, No S3, No Murmurs, No Rubs, No Gallops, No Ectopy Abdomen-Soft, Bowel Sounds Present, Non Tender, Non Distended, No Hepatomegaly, No Splenomegaly, No Palpable Masses, No Rebound, No Rigidity, No Guarding Musculoskeletal-Full Range of Motion Bilaterally, No CVAT Extremities-No Cyanosis, No Clubbing, No Edema Nuero-Cranial Nerves II-XII grossly intact, Motor WNL, DTRs WNL, Strength WNL, Non Focal Psych-Normal Mood Admission and Anticipated Discharge Date Admission Date: October 28, 2020 Results & Data Results & Data ([facility]) Vital Signs (Past 12 Hours) Vital Signs Temp Pulse Resp BP BP Pulse Ox 11/02/20 07:24 36.7 C 73 18 98/65 L 97 11/01/20 23:19 36.9 C 71 16 113/71 96 (1) Abdominal pain Abdominal location: generalized Qualified Code(s): R10.84 - Generalized abdominal pain
[2020-11-02] MEDS: AMPICILLIN/SULBACTAM SOD 3,000 MG in 0.9 % SODIUM CHLORIDE 100 ML IV SCH ×2 (13:36→20:44)
[2020-11-02] MEDS: MIRTAZAPINE TAB 15 MG TAB PO SCH (20:45)
[2020-11-03] MEDS: AMPICILLIN/SULBACTAM SOD 3,000 MG in 0.9 % SODIUM CHLORIDE 100 ML IV SCH ×3 (02:23→13:21)
[2020-11-03 05:57] LABS: Hemoglobin 8.4 g/dL (14.0-18.0); Mean Corpuscular Hemoglobin 29.3 pg (25-34); Mean Corpuscular Hgb Conc 32.3 g/dL (32-36); Mean Corpuscular Volume 90.6 fL (80-100); RDW Coefficient of Variation 15.6 % (11.5-14.5); RDW Standard Deviation 51.2 fL (36.4-46.3); Red Blood Count 2.87 M/uL (4.7-6.1); White Blood Count 2.62 K/uL (4.8-10.8)
[2020-11-03 06:07] LABS: Mean Platelet Volume 8.9 fL (7.4-10.4); Platelet Count 73 K/uL (130-400)
[2020-11-03 06:13] LABS: Partial Thromboplastin Ratio 0.9; Partial Thromboplastin Time 24.8 Seconds (21.0-31.0)
[2020-11-03 06:22] LABS: Albumin Level 2.5 gm/dl (3.4-5.0); BUN Creatinine Ratio 22.7 (10-20); Calcium 9.2 mg/dl (8.5-10.1); Creatinine Clr Calc Pharmacy 132.5 ml/min; Est GFR (African American) 121.6; Est GFR (Non-African American) 104.9; Potassium 3.8 mmol/L (3.5-5.1)
[2020-11-03 06:25] LABS: Albumin Globulin Ratio 0.7 (0.9-2); Bilirubin,Total 0.3 mg/dl (0.2-1); Globulin 3.5 gm/dl (2.5-4.0)
[2020-11-03 06:45] LABS: Basophils # (auto) 0.01 K/uL (0-0.2); Basophils % (auto) 0.4 %; Eosinophils # (auto) 0.07 K/uL (0-0.5); Eosinophils % (auto) 2.7 %; Immature Granulocytes # (auto) 0.01 K/uL (0.00-0.02); Immature Granulocytes % (auto) 0.4 %; Lymphocytes # (auto) 0.99 K/uL (1.2-3.4); Lymphocytes % (auto) 37.8 %; Monocytes # (auto) 0.29 K/uL (0.11-0.59); Monocytes % (auto) 11.1 %; Neutrophils # (auto) 1.25 K/uL (1.4-6.5); Neutrophils % (auto) 47.6 %
[2020-11-03] MEDS: MAGNESIUM OXIDE 400 MG TAB PO SCH (08:45)
[2020-11-03] MEDS: POLYETHYLENE (MIRALAX) 17 GM PACK PO SCH (08:46)
[2020-11-03] MEDS: MoRPHine SULFATE CR 15 MG TABCR PO SCH (08:46)
[2020-11-03] MEDS: CYANOCOBALAMIN 500 MCG TABLET (VITAMIN B-12) PO SCH (08:46)
[2020-11-03] MEDS: HYDROCORTISONE HC 2.5% CRM 30GM TUBE EXT SCH (08:46)
[2020-11-03] MEDS: DOCUSATE SODIUM/SENNA 50/8.6MG TAB PO SCH (08:46)
[2020-11-03] MEDS: ADVANCED PROBIOTIC 1250 MG CAPSULE PO SCH (08:47)
[2020-11-03] MEDS: MIDODRINE HCL 10 MG TAB PO SCH ×2 (08:47→12:09)
[2020-11-03] MEDS: INSULIN ASPART 100 UNITS/ML 3 ML PEN SC SCH ×2 (08:48→13:22)
--- NOTE | 2020-11-03 10:09 | Discharge Summary ---
Date of Service November 03, 2020 Admission HPI Per Admitting Provider History obtained from patient and records. Medical history significant for metastatic colon cancer status post surgery ongoing chemotherapy, colonic obstruction status post stent placement, LLE DVT/possible PE on weight- based Lovenox, hypotension on midodrine Rx, DM 2 on oral meds, hyperlipidemia, urolithiasis, chronic pancytopenia (baseline hemoglobin 8-9), chronic pain on narcotics, past tobacco abuse. Patient confined August 2020 for pneumonia. CAT scan during confinement showed progressive dilatation of a stool-filled colon proximal to the colonic stent located at the descending sigmoid junction. There is interval development of colonic wall thickening proximal to the level of the stent consistent with a colitis. An element of bowel obstruction is suspected at the level of the stent. Patient underwent colonoscopy which showed malignant completely obstructing tumor at the level of the descending colon. 8 cm prosthesis placed through existing colonic stent due to tumor ingrowth causing obstruction. Last confinement September 2020 for gram-negative bacteremia attributed to proctocolitis. Patient discharged with Cipro Flagyl course. 2 days history of worsening of chronic central abdominal pain with nausea, no emesis. Worsening constipation although patient had a nonbloody bowel movement yesterday. Fever chills at home loss of appetite. No chest pain, no shortness of breath. Dry cough symptoms, denies aspiration. No known recent COVID-19 contacts. At the ER, patient received vancomycin and Zosyn for possible healthcare associated pneumonia. 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 Admission Exam Per Admitting Provider GENERAL: Slightly uncomfortable, flat affect, no respiratory distress SKIN: Pallor, warm HEENT: pale palpebral conjunctivae, no ptosis, dry buccal mucosa NECK : Supple, no tenderness CHEST : CTA, no tenderness HEART : RRR, no obvious murmurs ABDOMEN: Some distention, left-sided abdominal tenderness EXTREMITIES : No LE swelling/tenderness, no other conspicuous deformities noted NEUROLOGIC : Coherent, no facial asymmetry, no other gross focality Principal Diagnosis Abdominal pain: Partial Small Bowel Obstruction H/O metastatic colon cancer S/P surgery and stent placement Rectal Bleeding H/O Hemorrhoids as per patient Pancytopenia Left LE DVT/possible PE Hypotension DM II Hyperlipidemia Discharge Exam See below Discharge Data Allergies Allergy/AdvReac Type Severity Reaction Status Date / Time No Known Allergies Allergy Verified 10/27/20 22:34 Consultations 10/28/20 02:32 ED Decision to Admit Stat 10/28/20 08:37 Consult General Surgery Routine 10/28/20 09:14 Consult Gastroenterology Routine 10/30/20 08:10 Consult Infectious Diseases Routine Current Diagnoses Malignant neoplasm of colon, unspecified (10/28/20) Unspecified intestinal obstruction, unspecified as to partial versus complete obstruction (10/28/20) Constipation, unspecified (10/28/20) Generalized abdominal pain (10/28/20) Unspecified abdominal pain (10/28/20) Allergies No Known Allergies Allergy (Verified 10/27/20 22:34) Height/Weight/Isolation Height 5 ft 6 in Weight 100 kg Isolation Type Neutropenic Precautions Chemistry 11/02/20 11/03/20 05:45 05:30 Sodium 138 137 Potassium 3.7 3.8 Chloride 106 105 Carbon Dioxide 30 29 Anion Gap 2.0 L 4.0 BUN 12 14 Creatinine 0.59 L 0.64 Glucose 121 H 105 H Microbiology 10/27/20 23:31 Blood Aerobic Blood Culture - Final Abiotrophia/Granulicatella Sp. 10/27/20 23:31 Blood Anaerobic Blood Culture - Final No growth in Anaerobic bottle after 5 days. 10/28/20 00:05 Blood Aerobic Blood Culture - Final No growth in Aerobic bottle after 5 days. 10/28/20 00:05 Blood Anaerobic Blood Culture - Final 10/30/20 08:04 Blood Aerobic Blood Culture - Preliminary No growth in Aerobic bottle after 48 hours. 10/30/20 08:04 Blood Anaerobic Blood Culture - Preliminary No growth in Anaerobic bottle after 48 hours. 10/30/20 07:54 Blood Aerobic Blood Culture - Preliminary No growth in Aerobic bottle after 48 hours. 10/30/20 07:54 Blood Anaerobic Blood Culture - Preliminary No growth in Anaerobic bottle after 48 hours. 10/29/20 11:19 Blood Aerobic Blood Culture - Preliminary Enterococcus faecium 10/29/20 11:19 Blood Anaerobic Blood Culture - Preliminary No growth in Anaerobic bottle after 48 hours. Ordered Studies 10/27/20 23:02 CT abd pelvis IV con only Urgent Hospital Course (1) Abdominal pain: Partial Small Bowel Obstruction -CT ABD:Stable position of the colonic stent extending across the sigmoid colon lesion. Mild increase in upstream colonic dilatation with moderate amount stool within the colon. A partial colonic obstruction may be present. Persistent rectal and colonic wall thickening with adjacent infiltration which suggests a nonspecific proctocolitis. Progression of pulmonary and lawson metastases with interval development of hepatic metastases. Cholelithiasis. Mild gallbladder distention. If right upper quadrant pain, ultrasound is recommended. Small amount of ascites. -H/O metastatic colon cancer S/P surgery and stent placement -Conservative management for now -kub ON 10/29/20:Colonic stent unchanged in position. No evidence for a high- grade colonic obstruction. -Not a candidate for re stenting as per GI - +BMs -Continue bowel regimen -On Unasyn per ID x 21 days Rectal Bleeding H/O Hemorrhoids as per patient Anticoagulation held GI as outpatient S/P 1 Unit PRBCs Bacteremia Blood culture: noted Repeat blood culture: No growth from 10/30 ECHO: No valvular lesions consistent with endocarditis on echo Metastatic colon cancer S/P Surgery Ongoing chemotherapy Follows with Dr. Meraz as outpatient Pancytopenia Chemotherapy induced Immunocompromised patient Ongoing chemotherapy Left LE DVT/possible PE Was on weight-based Lovenox Hold Lovenox for now Re: Rectal Bleeding, to be addressed by Oncology Hypotension on midodrine DM II PO meds Hyperlipidemia on statin Chronic pancytopenia Monitor CBC DC home on Q6H Unasyn x 21 days Labs Checked ROS-No Headache, No Visual Changes, No Nausea, No Vomiting, No Fever, No Chills, No Neck Pain or Stiffness, No Chest Pain, No Palpitations, No SOB, No CARVAJAL, No Cough, No Sputum, No Wheezing, No Abdominal Pain, No Diarrhea, No Hematemesis, No Hemoptysis, No Unexpected Weight Loss, No Flank pain, No Melena, No Hematochezia, No Frequency, No Urgency, No Burning, No Hematuria, No Rashes, No Diaphoresis. Appetite is Normal Physical Exam Gen-AAO x 3, NAD, Afebrile Head-NCAT, EOMI, PERRLA, Anicteric Sclera, No Posterior Pharyngeal Erythema Neck-Supple, No JVD, No Thyromegaly, No Masses, No LAD, No Bruits Lungs-Clear to Auscultation Bilaterally, No Rales, No Rhonchi, No Wheezing, No Crepitus Chest-No S4, +S1, +S2, No S3, No Murmurs, No Rubs, No Gallops, No Ectopy Abdomen-Soft, Bowel Sounds Present, Non Tender, Non Distended, No Hepatomegaly, No Splenomegaly, No Palpable Masses, No Rebound, No Rigidity, No Guarding Musculoskeletal-Full Range of Motion Bilaterally, No CVAT Extremities-No Cyanosis, No Clubbing, No Edema Nuero-Cranial Nerves II-XII grossly intact, Motor WNL, DTRs WNL, Strength WNL, Non Focal Psych-Normal Mood Total Time Total Time Spent Total Time Spent (In Minutes): 45 min Total Time Includes: Examination of the Patient, Discharge Planning, Medication Reconciliation and Communication With Other Providers Discharge Plan Discharge Items Patient Disposition: Home - Home Health Services Reason For Visit: HCAP, BOWEL OBSTRUCTION Discharge Diagnosis: Abdominal pain: Partial Small Bowel Obstruction H/O metastatic colon cancer S/P surgery and stent placement Rectal Bleeding H/O Hemorrhoids as per patient Pancytopenia Left LE DVT/possible PE Hypotension DM II Hyperlipidemia Condition on Discharge: Good Health Concerns: Rebleeding if anticoagulation restarted Activity: Resume your previous activity Lifting: Gradually increase as tolerated Bathing: No limitations Sexual Activity: When tolerated Exercise/Sports: Gradually increase as tolerated Driving/Machine Use: No limitations Weightbearing: Full weightbearing Non-emergency contact: Primary Care Provider and Oncologist Call non-emergency contact if: you have any medication questions and your symptoms worsen Follow-up/Referrals: Js Austin PA-C [Physician [facility]] - 11/15/20 10:00 am () Chance Meraz MD [Surgeon] - (Ask if or when he wants to restart anticoagulation and ask for first opening) Duong Matt MD [Primary Care Provider] - ([facility] WILL CALL YOU WITH APPOINTMENT DATE AND TIME.) Zully Veliz MD [Physician] - (Call for first opening) Lebron Corona II, DO [Physician] - 12/05/20 11:00 am (This will be at the [facility] location If you need to change this appointment or have any questions please call [phone]) Diet: Carb Consistent or DM2 and Heart Healthy Addtl Attending Provider Instructions: Find out from Dr Meraz if he wants you to resume anticoagulation Home Health Weekly CBC, CMP, CRP Pending Studies at Discharge: No Stand-Alone Forms: My [facility], Smoking Cessation Medications and DC Order Prescriptions: New polyethylene glycol 3350 [Miralax] 17 gram Powder In Packet 17 g PO DAILY PRN (Reason: constipation) Qty: 30 RF: 0 sennosides-docusate sodium [Senokot-S] 8.6-50 mg Tablet 1 tab PO BID Qty: 60 RF: 0 magnesium oxide 400 mg (241.3 mg magnesium) Tablet 400 mg PO BID Qty: 10 RF: 0 ampicillin-sulbactam 3 gram recon soln 3 g IV Q6H Qty: 60 RF: 0 Continued pioglitazone [Actos] 30 mg Tablet 30 mg PO QAM RF: 0 prochlorperazine maleate [Compazine] 10 mg tablet 10 mg PO AMHS PRN (Reason: Nausea) RF: 0 oxycodone-acetaminophen 5-325 mg Tablet 1 tab PO Q6 PRN (Reason: Pain-Mild/Moderate) RF: 0 mirtazapine 15 mg tablet 15 mg PO HS RF: 0 ferrous sulfate 325 mg (65 mg iron) Tablet 325 mg PO BID RF: 0 diphenoxylate-atropine 2.5-0.025 mg tablet 1 tab PO QID PRN (Reason: Diarrhea) RF: 0 hyoscyamine sulfate [Levsin] 0.125 mg tablet 0.125 mg PO Q6H PRN (Reason: Cramping) RF: 0 cyanocobalamin (vitamin B-12) [Vitamin B-12] 500 mcg Tablet 500 mcg PO QAM RF: 0 morphine 15 mg tablet extended release 15 mg PO Q12H RF: 0 ondansetron HCl 8 mg tablet 8 mg PO Q8H PRN (Reason: Nausea And Vomiting) RF: 0 midodrine 10 mg Tablet 10 mg PO TID@0800,1200,1700 30 Days Qty: 90 RF: 3 sennosides [senna] 8.6 mg Tablet 8.6 mg PO DAILY RF: 0 magnesium hydroxide [Milk of Magnesia] 400 mg/5 mL Suspension 30 ml PO HS RF: 0 docusate sodium [Colace] 100 mg Capsule 100 mg PO BID RF: 0 Lactinex 1 million cell tablet,chewable 1 tab PO TID Qty: 30 RF: 0 Discontinued enoxaparin 100 mg/mL syringe 90 mg subcut QAM RF: 0 Discharge Orders: Discharge Order (Routine); Ordered 11/03/20 Ordered By: Mikey Ahmadi/Other Patient Handouts: Small Bowel Obstruction Admission Data Admit Date/Time: 10/28/20 04:57 Attending Provider: Mikey Rogel Admit Provider: Jase Ellis Primary Care Provider: Duong Matt Other Providers: Manjinder Oh ; Michael Gardner ; Js Austin ; Mario Law ; Ji Loera Jr ; Joss Schwartz ; Robin Olvera ; Sheeba Gross ; Markos Cueva ; Mirza Brown ; Leanne Montes ; Sherrie James ; Samm Huitron ; Angelic Zabala ; Humberto Hawley ; Lexa Adame ; Pricila Lu ; Heladio Nelson ; Mykel Coulter ; Ceci Patrick ; Corrina Cunningham ; Silvia Verde ; Sowmya James ; Dillon Wong ; Rex Allen ; Zully Veliz ; Kiran Sosa I. ; Lebron Corona II ; Linnette Gama ; Bonilla Hurtado ; Otis Ibrahim [facility] Other Interventions: Discharge Summary Assessment (RN) Last Done: 11/03/20 11:47
== END 2020-11-03 14:47 | disposition home health service (06) | DRG 388 ==
LOC: ED 20:32 → 3N 10-28 04:57 → SUATTDRO 10-28 04:57 → 3N 10-28 05:59

== ENCOUNTER 2020-11-10 11:35 | Inpatient (IN) ==
--- NOTE | 2020-11-10 11:54 | Electrocardiogram Report ---
Test Reason : Blood Pressure : / mmHG Vent. Rate : 062 BPM Atrial Rate : 062 BPM P-R Int : 160 ms QRS Dur : 072 ms QT Int : 402 ms P-R-T Axes : 035 -41 059 degrees QTc Int : 408 ms Normal sinus rhythm with sinus arrhythmia Left axis deviation Abnormal ECG When compared with ECG of 27-OCT-2020 22:57, Criteria for Septal infarct are no longer Present Confirmed by Fercho Forbes ([id number]) on 11/10/2020 11:54:32 AM Referred By: Confirmed By:Fercho Forbes
[2020-11-10] MEDS ORDERED: diphenhydrAMINE 50 MG/ML VIAL IV STA (11:59)
[2020-11-10] MEDS ORDERED: FAMOTIDINE 20MG IV PUSH 20 MG/5 ML SYR IV STA (11:59)
[2020-11-10] MEDS ORDERED: SODIUM CHLORIDE 0.9% 1000ML 1,000 ML IV ONE (11:59)
[2020-11-10] MEDS ORDERED: METOCLOPRAMIDE HCL INJ 5 MG/ML 2 ML VIAL IV STA (12:00)
[2020-11-10 12:02] LABS: Hematocrit (blood only) 28.9 % (42-52); Hemoglobin 9.2 g/dL (14.0-18.0); Mean Corpuscular Hemoglobin 29.1 pg (25-34); Mean Corpuscular Hgb Conc 31.8 g/dL (32-36); Mean Corpuscular Volume 91.5 fL (80-100); RDW Coefficient of Variation 15.5 % (11.5-14.5); RDW Standard Deviation 52.2 fL (36.4-46.3); Red Blood Count 3.16 M/uL (4.7-6.1)
[2020-11-10] MEDS ORDERED: ACETAMINOPHEN 1,000 MG/100 ML VIAL IV STA (12:05)
[2020-11-10 12:15] LABS: INR 1.1 (0.9-1.1); Partial Thromboplastin Ratio 1.4; Partial Thromboplastin Time 37.3 Seconds (21.0-31.0); Prothrombin Time 10.9 Seconds (9.0-12.0)
[2020-11-10 12:22] LABS: Alanine Aminotransferase 16 U/L (12-78); Albumin Level 2.9 gm/dl (3.4-5.0); Aspartate Aminotransferase 13 U/L (15-37); BUN Creatinine Ratio 19.2 (10-20); Blood Urea Nitrogen 9 mg/dl (7-18); Calcium 9.1 mg/dl (8.5-10.1); Carbon Dioxide 26 mmol/L (21-32); Chloride 106 mmol/L (98-107); Est GFR (African American) 135.7; Est GFR (Non-African American) 117.1; Glucose 150 mg/dl (70-99); Mean Platelet Volume 9.4 fL (7.4-10.4); Platelet Count 76 K/uL (130-400); Potassium 4.1 mmol/L (3.5-5.1); Sodium 137 mmol/L (136-145)
[2020-11-10 12:23] LABS: Eosinophils # (auto) 0.05 K/uL (0-0.5); Eosinophils % (auto) 1.3 %; Lymphocytes # (auto) 0.52 K/uL (1.2-3.4); Lymphocytes % (auto) 13.7 %; Monocytes # (auto) 0.33 K/uL (0.11-0.59); Monocytes % (auto) 8.7 %; Neutrophils % (auto) 76.3 %
[2020-11-10 12:27] LABS: Albumin Globulin Ratio 0.7 (0.9-2); Alkaline Phosphatase 118 U/L (45-117); Bilirubin,Total 0.4 mg/dl (0.2-1); Globulin 4.2 gm/dl (2.5-4.0); Total Protein 7.1 gm/dl (6.4-8.2); Troponin I < 0.015 ng/ml (0-0.045)
[2020-11-10 12:29] LABS: Bilirubin Direct 0.1 mg/dl (0-0.2); Magnesium 1.9 mg/dl (1.8-2.4); Phosphorus 3.2 mg/dl (2.5-4.9)
[2020-11-10] MEDS ORDERED: OPTIRAY 350 500ml IV ONE (12:52)
--- NOTE | 2020-11-10 12:56 | XRay Report ---
XR chest 1V portable CLINICAL HISTORY: Atypical chest pain COMPARISON STUDY: 10/27/2020 FINDINGS: The cardiac and mediastinal contours remain stable. There is a left-sided A-Port catheter. There is no failure. There is no lobar consolidation. There are no pleural effusions. Left basilar op acities remain similar to the prior study and likely represent atelectasis/scarring.[ IMPRESSION: No active disease in the chest. ACT 112: Negative or not required by law. Electronically signed by: Charanjit Velázquez M.D. 11/10/2020 12:55 PM
[2020-11-10 13:18] LABS: Influenza A virus by PCR Negative (Neg); Influenza B virus by PCR Negative (Neg); RSV by PCR Negative (Neg); SARS CoV2 RNA(COVID-19) InHosp NEGATIVE (Negative)
--- NOTE | 2020-11-10 13:45 | CT Scan Report ---
CT angio chest PE protocol, CT abd pelvis IV con only HISTORY: 60 years-old Male with chest/abd pain, metastatic ca PE. Acute chest and abdominal pain wi th metastatic colon cancer TECHNIQUE: Multiple CTA images of the chest were obtained after the intravenous administration of 110 ml Optiray. Coronal and sagittal MIPS were obtained from the axial data set and were submitted for review. All measurements were obtained according to NASCET criteria. CT abdomen and pelvis with IV c ontrast only was also obtained. A dose lowering technique was utilized adhering to the principles of ALARA. COMPARISON: Chest radiograph of same day, CT abdomen and pelvis 10/28/2020, chest CT 08/25/2020 FINDINGS: CTA: Moderate cardiomegaly. Trace pericardial effusion. Extensive coronary artery calcifications. Fusiform dilation of the ascending thoracic aorta is unchanged measuring 4.0 x 4.1 cm. No dissection. Patency of the imaged great vessels. Left subclavian [id number] catheter distal tip terminates within the inferior SVC. The pulmonary artery is opacified to the level of the proximal subsegmental branches a nd demonstrates no filling defects to suggest thromboembolic disease. CT CHEST: Unremarkable thyroid. Hilar lymph nodes measuring up to limits of normal at 9 mm, unchanged. Mildly p rominent periaortic lymph nodes at the diaphragmatic hiatus measure up to 11 mm, unchanged from maddie rison suggestive of metastasis. No pneumothorax or pleural effusion. Bronchial wall thickening suggestive of bronchitis or reactive a irway disease. Mucous plugging of the left lower lobe redemonstrated. Linear consolidation of the bas al left lower lobe suggestive of atelectasis. Bibasilar predominant solid pulmonary nodules, largest which measures 3.4 cm and the basal left lower lobe on image 72 which is unchanged from the 10/28/2020 exam. 10 mm irregular nodule of the right middle lobe is stable. These findings however have progres sed from the 08/25/2020 study. Unremarkable soft tissues with gynecomastia. No acute fracture or suspicious bone lesion. CT ABDOMEN/PELVIS: Splenomegaly measures up to 17.6 cm. Unremarkable adrenal glands. Mild to moderate pancreatic atrophy . Cholelithiasis with gallbladder distention and mild wall thickening. No biliary ductal dilation. Nu merous hepatic metastasis, most which are subcentimeter in size appears similar to comparison. Patenc y of the hepatic and portal veins. Unremarkable right kidney. Asymmetric left renal atrophy. Nonobstructing calculi of the left kidney m easure up to 7 mm. No ureteral calculi or hydronephrosis. Mild urinary bladder wall thickening with p artial distention. No abdominal aortic aneurysm. Enlarged abdominal and pelvic lymph nodes redemonstr ated with index left iliac chain lymph node on image 261 measuring 2.3 x 1.8 cm, stable from comparis on. Mild wall thickening of the distal esophagus. There is no small bowel obstruction. A stent within the sigmoid colon extending across an annular lesion is in stable positioning. There is progressive sudhir colonic inflammation along the proximal portion of the stent. Wall thickening with mucosal hyperemia upstream to the stent redemonstrated. Persistent wall thickening of the rectum and anus with a 1.8 x 0.8 cm air and fluid-filled peripherally enhancing collection along the left lateral margin of the an orectal junction. No large bowel obstruction. There is moderate fecal retention. Normal appendix. Dif fuse mesenteric and body wall edema. No acute fracture or new suspicious bone lesion. IMPRESSION: 1. Cardiomegaly without pulmonary emboli. 2. Pulmonary, lawson and hepatic metastasis appear generally stable from the 10/28/2020 exam. 3. Unchanged fusiform dilation of the ascending thoracic aorta, 4.1 x 4.0 cm. 4. Unchanged bronchial wall thickening with left lung base predominant mucus plugging. 5. Stable positioning of the colonic stent extending across the sigmoid colon lesion. No large bowel obstruction. 6. Persistent wall thickening of the rectum suggestive of a nonspecific proctitis. Additionally, ther e is a small peripherally enhancing air and fluid-filled 1.8 cm collection along the left lateral mar gin of the anal rectal junction which may represent a small abscess with intramural involvement. 7. Additional findings as above. ACT 112: Negative or not required by law. The above report was generated using voice recognition software. It may contain grammatical, syntax o r spelling errors. Electronically signed by: Cornel Higgins M.D. 11/10/2020 1:44 PM
--- NOTE | 2020-11-10 14:39 | Emergency Department Note ---
Impression & Plan Metastatic disease, Intractable nausea and vomiting, Proctocolitis ED Provider Note NAME: VISHAL LEO AGE: 60 SEX: M ARRIVES VIA: Walk-In INFORMANT: Patient, ED PROVIDER(S): Clemente Oneill MD CHIEF COMPLAINT: vomiting, chest pain PLAN: Disposition: Admit MEDICAL DECISION MAKING: The patient is a pleasant 60-year-old gentleman with a past medical history of metastatic colon cancer who presents to the emergency department accompanied by his with ongoing intractable nausea and vomiting since last evening. The patient presents to emergency department in the setting of being admitted at the end of October discharged on 11/03 after treatment for colitis and bacteremia currently on Augmentin at home. Patient also had evidence of partial obstruction during his last admission but it was considered that he was no longer a candidate for repeat colonic stenting. General surgery was consulted at that time and given his acute illness there is no indication for emergent surgical procedure though colectomy once medically optimized was considered a possibility. The patient denies any fevers, chills, cough, congestion, urinary symptoms. On arrival the patient is uncomfortable, acute on chronically ill-appearing but no acute distress, afebrile stable vital signs. He appears clinically dry. He has generalized abdominal discomfort without discrete tenderness. There is a ventral hernia that is soft and nontender. EKG without overt acute ischemia. CXR negative for acute cardiopulmonary process. WBC 3.8 with normal ANC today. H/H 9.2/20.9 similar to prior values. Platelets 76K also similar to prior values. Chemistry without metabolic acidosis. Electrolytes and LFTs without significant abnormality. Troponin neg ative/undetectable. Lipase not elevated. COVID-19 PCR was negative. Influenza and RSV PCR also negative. CT of the chest and CT and pelvis were performed. This was negative for PE or focal infiltrates. There is persistence of rectal wall thickening consistent with colitis as well as a small peripheral enhancing air-fluid collection of approximate 1.8 cm at the anal rectal junction. Upon reevaluation the patient was feeling some improvement though still with some mild nausea and generalized weakness. Given his flare of symptoms in the setting of his metastatic disease and persistent colitis he did agree with plan for admission. Will repeat blood cultures at this time but will defer any medication changes for now with antibiotics pending admission team evaluation. Lactate wnl. Procalcitonin is not elevated. Case was discussed with Evette Arevalo hospitalist, who will evaluate the patient for admission. Triage Nursing notes reviewed and agree them. Prior medical records reviewed Vital Signs: reviewed and remarkable for no significant abnormalities Differential diagnosis: Cardiac ischemia, aortic dissection, pulmonary embolism, pneumothorax, pneumonia, pericarditis, myocarditis, esophageal rupture, GERD, cholecystitis, pancreatitis, musculoskeletal, as well as other pathologies. ER treatment provided: See below. Diagnostics interpreted by me: ECG: NSR, 62 bpm, PVC, no overt ST elevation or depression. Cardiac Monitoring: An order for continuous cardiac monitoring was placed and demonstrated NSR, 62 bpm, PVC. Laboratory studies: See below Imaging studies: See below Consultation(s): Case was discussed with Dr. Hernandez, [facility] Hospitalist, who will evaluate the patient for admission. HPI: The patient is a pleasant 60-year-old gentleman with a past medical history of metastatic colon cancer who presents to the emergency department accompanied by his with ongoing intractable nausea and vomiting since last evening. The patient presents to emergency department in the setting of being admitted at the end of October discharged on 11/03 after treatment for colitis and bacteremia currently on Augmentin at home. Patient also had evidence of partial obstruction during his last admission but it was considered that he was no longer a candidate for repeat colonic stenting. General surgery was consulted at that time and given his acute illness there is no indication for emergent surgical procedure though colectomy once medically optimized was considered a possibility. The patient denies any fevers, chills, cough, congestion, urinary symptoms. ROS: See above HPI for pertinent positives & negatives. A total of 10 systems reviewed and were otherwise negative. PAST MEDICAL HISTORY:See Below PAST SURGICAL HISTORY:See Below FAMILY HISTORY:See Below SOCIAL HISTORY:See Below HOME MEDICATIONS:See Below ALLERGIES:See Below VITALS:See Below PHYSICAL EXAMINATION: GENERAL: Awake, alert, chronically ill-appearing, in no distress HENT: Normocephalic, atraumatic. Oropharynx with dry mucous membranes and otherwise unremarkable. EYES: Normal conjunctiva. Sclera non-icteric. NECK: Supple. No nuchal rigidity. FROM. No JVD. RESPIRATORY: Clear to auscultation. CARDIAC: Regular rate, normal rhythm. Extremities warm and well perfused. Pulses equal. ABDOMEN: Soft, non-distended. Generalized abdominal discomfort without discrete tenderness. There is a ventral hernia that is soft and nontender. No rebound or guarding. No masses. RECTAL: Deferred. MUSCULOSKELETAL: Chest examination reveals no tenderness. The back is symmetrical on inspection without obvious abnormality. There is no CVA tenderness to palpation. No joint edema. LOWER EXTREMITIES: Calves are equal size bilaterally and non-tender. No edema. No discoloration. NEURO: Normal sensorium. No sensory or motor deficits noted. SKIN: No rash or jaundice noted. Clemente Oneill MD Past Med/Surg History Medical History (Updated 11/11/20 @ 01:22 by Clemente Oneill MD) Acute lower GI bleeding Anxiety C. difficile colitis hx ~2018. 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 Depression Diverticulitis of colon with perforation NO SURGERY DM type 2 (diabetes mellitus, type 2) Dyslipidemia Immunocompromised Kidney stones Obesity Osteoarthritis Pancytopenia Follows with heme Splenomegaly r/t chemotherapy Surgical History History of colonoscopy History of cystoscopy STONE REMOVAL WITH STENT PLACED History of esophagogastroduodenoscopy (EGD) History of tooth extraction History of vascular access device RIGHT UPPER CHEST PLACED 09/2018 Hx of hernia repair Hx of tonsillectomy Family History Mother , Age 62 Breast cancer Father , Age 62 Stroke Sister Family history of diabetes mellitus Brother Family history of diabetes mellitus Brother Family history of diabetes mellitus Other No family history of adverse response to anesthesia Social History Smoking Status: Former smoker Tobacco Type: Cigarettes Second Hand Exposure: Yes; Do You Dip or Chew Tobacco: No; Tobacco Cessation Education Requested by Patient: No Hx Alcohol Use: No Hx Substance Use: No Preferred Language: Mongolian Communication Ability: Effective Visual Impairment: No Limitations Health Coach Required: No Beliefs That Will Affect Care: None marital status: Current Living Situation: Family Current Living Situation Comment: daughter lives with him How many Children do You have: 1 Other Information That Helps Us Care for You: No Feels Safe at Home: Yes Safety Concerns: Feels Safe At This Time Assistive Devices: Walker Allergies Allergies Allergy/AdvReac Type Severity Reaction Status Date / Time No Known Allergies Allergy Verified 10/27/20 22:34 Home Meds Home Medications Medication Instructions Recorded Confirmed pioglitazone [Actos] 30 mg PO QAM 04/18/18 11/10/20 ferrous sulfate 325 mg PO BID 10/02/18 11/10/20 oxycodone-acetaminophen 1 tab PO Q6 PRN 12/27/19 11/10/20 prochlorperazine maleate 10 mg PO AMHS PRN 12/27/19 11/10/20 [Compazine] cyanocobalamin (vitamin B-12) 500 mcg PO QAM 02/11/20 11/10/20 [Vitamin B-12] diphenoxylate-atropine 1 tab PO QID PRN 02/11/20 11/10/20 hyoscyamine sulfate [Levsin] 0.125 mg PO Q6H PRN 02/11/20 11/10/20 morphine 15 mg PO Q12H 04/01/20 11/10/20 ondansetron HCl 8 mg PO Q8H PRN 05/06/20 11/10/20 mirtazapine 15 mg PO HS 06/23/20 11/10/20 docusate sodium [Colace] 100 mg PO BID 09/25/20 11/10/20 magnesium hydroxide [Milk of 30 ml PO HS PRN 09/25/20 11/10/20 Magnesia] sennosides [senna] 8.6 mg PO DAILY 09/25/20 11/10/20 Lactinex 1 tab PO TIDM 11/10/20 11/10/20 enoxaparin 100 mg SUBCUT DAILY 11/10/20 11/10/20 Previous Rx's Medication Instructions Recorded midodrine 10 mg PO TID@0800,1200,1700 30 08/29/20 Days #90 tab ampicillin-sulbactam 3 g IV Q6H #60 ea 11/03/20 magnesium oxide 400 mg PO BID #10 tab 11/03/20 polyethylene glycol 3350 [Miralax] 17 g PO DAILY PRN #30 ea 11/03/20 sennosides-docusate sodium 1 tab PO BID #60 tab 11/03/20 [Senokot-S] Results & Data (ED) Vital Signs Vital Signs - 24 hr 11/10/20 11:37 11/10/20 11:48 11/10/20 11:51 Temperature 36.8 C Temperature Source Oral Pulse Rate 79 66 Pulse Rate from SpO2 Sensor 66 Pulse Rhythm Regular Pulse Strength Normal Respiratory Rate 20 15 Respiratory Effort / Characteristics Non-Labored Spontaneous Respiratory Depth Normal Respiratory Pattern Regular Blood Pressure 131/82 122/73 Blood Pressure Mean 98 89 Blood Pressure Position Sitting Pulse Oximetry 97 97 Oxygen Delivery Method Room Air Room Air Oxygen Flow Rate 97 Sepsis Recent Fever Within 48 Hours No Sepsis New/Unexplained Change in Mental Status No Sepsis Action Taken by Nursing No Action Required 11/10/20 13:12 11/10/20 13:20 11/10/20 14:00 Temperature Temperature Source Pulse Rate 59 L 60 58 L Pulse Rate from SpO2 Sensor 59 L 60 58 L Pulse Rhythm Pulse Strength Respiratory Rate 16 16 16 Respiratory Effort / Characteristics Respiratory Depth Respiratory Pattern Blood Pressure 112/68 Blood Pressure Mean 82 Blood Pressure Position Pulse Oximetry 99 100 99 Oxygen Delivery Method Oxygen Flow Rate Sepsis Recent Fever Within 48 Hours Sepsis New/Unexplained Change in Mental Status Sepsis Action Taken by Nursing 11/10/20 15:00 11/10/20 15:30 Temperature Temperature Source Pulse Rate 65 60 Pulse Rate from SpO2 Sensor 65 60 Pulse Rhythm Pulse Strength Respiratory Rate 15 15 Respiratory Effort / Characteristics Respiratory Depth Respiratory Pattern Blood Pressure 115/68 Blood Pressure Mean 83 Blood Pressure Position Pulse Oximetry 99 99 Oxygen Delivery Method Oxygen Flow Rate Sepsis Recent Fever Within 48 Hours Sepsis New/Unexplained Change in Mental Status Sepsis Action Taken by Nursing Laboratory Data Attestation: I reviewed the patient's lab results. Result diagrams: 11/10/20 11:47 11/10/20 11:47 Lab Results 11/10/20 11/10/20 11/10/20 Range/Units 11:47 11:47 11:47 WBC 3.80 L (4.8-10.8) K/uL RBC 3.16 L (4.7-6.1) M/uL Hgb 9.2 L (14.0-18.0) g/dL Hct 28.9 L (42-52) % MCV 91.5 (80-100) fL MCH 29.1 (25-34) pg MCHC 31.8 L (32-36) g/dL RDW Std Deviation 52.2 H (36.4-46.3) fL RDW Coeff of Ivette 15.5 H (11.5-14.5) % Plt Count 76 L (130-400) K/uL MPV 9.4 (7.4-10.4) fL Immature Gran % (Auto) 0.0 % Neut % (Auto) 76.3 % Lymph % (Auto) 13.7 % Weber % (Auto) 8.7 % Eos % (Auto) 1.3 % Baso % (Auto) 0.0 % Neut # (Auto) 2.90 (1.4-6.5) K/uL Lymph # (Auto) 0.52 L (1.2-3.4) K/uL Weber # (Auto) 0.33 (0.11-0.59) K/uL Eos # (Auto) 0.05 (0-0.5) K/uL Baso # (Auto) 0.00 (0-0.2) K/uL Immature Gran # (Auto) 0.00 (0.00-0.02) K/uL PT 10.9 (9.0-12.0) Seconds INR 1.1 (0.9-1.1) APTT 37.3 H (21.0-31.0) Seconds PTT Ratio 1.4 Sodium 137 (136-145) mmol/L Potassium 4.1 (3.5-5.1) mmol/L Chloride 106 (98-107) mmol/L Carbon Dioxide 26 (21-32) mmol/L Anion Gap 5.0 (3-11) BUN 9 (7-18) mg/dl Creatinine 0.49 L (0.6-1.4) mg/dl Est Cr Clr Drug Dosing Not Reportable Est GFR ( Amer) 135.7 Est GFR (Non-Af Amer) 117.1 BUN/Creatinine Ratio 19.2 (10-20) Glucose 150 H (70-99) mg/dl Lactate (0.4-2.0) mmol/L Calcium 9.1 (8.5-10.1) mg/dl Phosphorus (2.5-4.9) mg/dl Magnesium (1.8-2.4) mg/dl Total Bilirubin 0.4 (0.2-1) mg/dl Direct Bilirubin (0-0.2) mg/dl AST 13 L (15-37) U/L ALT 16 (12-78) U/L Alkaline Phosphatase 118 H (45-117) U/L Total Creatine Kinase (39-308) U/L Troponin I < 0.015 (0-0.045) ng/ml Total Protein 7.1 (6.4-8.2) gm/dl Albumin 2.9 L (3.4-5.0) gm/dl Globulin 4.2 H (2.5-4.0) gm/dl Albumin/Globulin Ratio 0.7 L (0.9-2) Lipase (73-393) U/L Procalcitonin (0-0.5) ng/ml COVID-19 Eval Order SARS-CoV-2 (PCR) (Negative) Influenza Type A (PCR) (Neg) Influenza Type B (PCR) (Neg) RSV (RT-PCR) (Neg) 11/10/20 11/10/20 11/10/20 Range/Units 11:47 12:20 12:20 WBC (4.8-10.8) K/uL RBC (4.7-6.1) M/uL Hgb (14.0-18.0) g/dL Hct (42-52) % MCV (80-100) fL MCH (25-34) pg MCHC (32-36) g/dL RDW Std Deviation (36.4-46.3) fL RDW Coeff of Ivette (11.5-14.5) % Plt Count (130-400) K/uL MPV (7.4-10.4) fL Immature Gran % (Auto) % Neut % (Auto) % Lymph % (Auto) % Weber % (Auto) % Eos % (Auto) % Baso % (Auto) % Neut # (Auto) (1.4-6.5) K/uL Lymph # (Auto) (1.2-3.4) K/uL Weber # (Auto) (0.11-0.59) K/uL Eos # (Auto) (0-0.5) K/uL Baso # (Auto) (0-0.2) K/uL Immature Gran # (Auto) (0.00-0.02) K/uL PT (9.0-12.0) Seconds INR (0.9-1.1) APTT (21.0-31.0) Seconds PTT Ratio Sodium (136-145) mmol/L Potassium (3.5-5.1) mmol/L Chloride (98-107) mmol/L Carbon Dioxide (21-32) mmol/L Anion Gap (3-11) BUN (7-18) mg/dl Creatinine (0.6-1.4) mg/dl Est Cr Clr Drug Dosing Est GFR ( Amer) Est GFR (Non-Af Amer) BUN/Creatinine Ratio (10-20) Glucose (70-99) mg/dl Lactate (0.4-2.0) mmol/L Calcium (8.5-10.1) mg/dl Phosphorus 3.2 (2.5-4.9) mg/dl Magnesium 1.9 (1.8-2.4) mg/dl Total Bilirubin (0.2-1) mg/dl Direct Bilirubin 0.1 (0-0.2) mg/dl AST (15-37) U/L ALT (12-78) U/L Alkaline Phosphatase (45-117) U/L Total Creatine Kinase 16 L (39-308) U/L Troponin I (0-0.045) ng/ml Total Protein (6.4-8.2) gm/dl Albumin (3.4-5.0) gm/dl Globulin (2.5-4.0) gm/dl Albumin/Globulin Ratio (0.9-2) Lipase 28 L (73-393) U/L Procalcitonin (0-0.5) ng/ml COVID-19 Eval Order [facility]Rsv at [facility] SARS-CoV-2 (PCR) NEGATIVE (Negative) Influenza Type A (PCR) Negative (Neg) Influenza Type B (PCR) Negative (Neg) RSV (RT-PCR) Negative (Neg) 11/10/20 11/10/20 Range/Units 14:45 14:45 WBC (4.8-10.8) K/uL RBC (4.7-6.1) M/uL Hgb (14.0-18.0) g/dL Hct (42-52) % MCV (80-100) fL MCH (25-34) pg MCHC (32-36) g/dL RDW Std Deviation (36.4-46.3) fL RDW Coeff of Ivette (11.5-14.5) % Plt Count (130-400) K/uL MPV (7.4-10.4) fL Immature Gran % (Auto) % Neut % (Auto) % Lymph % (Auto) % Weber % (Auto) % Eos % (Auto) % Baso % (Auto) % Neut # (Auto) (1.4-6.5) K/uL Lymph # (Auto) (1.2-3.4) K/uL Weber # (Auto) (0.11-0.59) K/uL Eos # (Auto) (0-0.5) K/uL Baso # (Auto) (0-0.2) K/uL Immature Gran # (Auto) (0.00-0.02) K/uL PT (9.0-12.0) Seconds INR (0.9-1.1) APTT (21.0-31.0) Seconds PTT Ratio Sodium (136-145) mmol/L Potassium (3.5-5.1) mmol/L Chloride (98-107) mmol/L Carbon Dioxide (21-32) mmol/L Anion Gap (3-11) BUN (7-18) mg/dl Creatinine (0.6-1.4) mg/dl Est Cr Clr Drug Dosing Est GFR ( Amer) Est GFR (Non-Af Amer) BUN/Creatinine Ratio (10-20) Glucose (70-99) mg/dl Lactate 0.7 (0.4-2.0) mmol/L Calcium (8.5-10.1) mg/dl Phosphorus (2.5-4.9) mg/dl Magnesium (1.8-2.4) mg/dl Total Bilirubin (0.2-1) mg/dl Direct Bilirubin (0-0.2) mg/dl AST (15-37) U/L ALT (12-78) U/L Alkaline Phosphatase (45-117) U/L Total Creatine Kinase (39-308) U/L Troponin I (0-0.045) ng/ml Total Protein (6.4-8.2) gm/dl Albumin (3.4-5.0) gm/dl Globulin (2.5-4.0) gm/dl Albumin/Globulin Ratio (0.9-2) Lipase (73-393) U/L Procalcitonin 0.08 (0-0.5) ng/ml COVID-19 Eval Order SARS-CoV-2 (PCR) (Negative) Influenza Type A (PCR) (Neg) Influenza Type B (PCR) (Neg) RSV (RT-PCR) (Neg) Administered Medications Ferrous Sulfate (Ferrous Sulfate 325 Mg Tab) 325 mg PO BID LUIS Stop: 12/10/20 20:59 Last Admin: 11/10/20 20:21 Dose: 325 mg Documented by: [id number] Sodium Chloride (Nss 1000ml) 1,000 mls @ 125 mls/hr IV .Q8H LUIS Stop: 12/10/20 18:34 Last Admin: 11/10/20 19:59 Dose: 125 mls/hr Documented by: [id number] Metronidazole (Flagyl) 500 mg in 100 mls @ 100 mls/hr IV Q8H [facility] Stop: 11/20/20 18:59 Last Infusion: 11/10/20 21:00 Dose: 0 mls/hr Documented by: [id number] Admin: 11/10/20 20:00 Dose: 100 mls/hr Documented by: [id number] Ampicillin Sodium/Sulbactam Sodium 3,000 mg/ Sodium Chloride 108 mls @ 216 mls/hr IV Q6H LUIS Stop: 11/24/20 19:59 Last Infusion: 11/10/20 21:25 Dose: 0 mls/hr Documented by: [id number] Admin: 11/10/20 19:59 Dose: 216 mls/hr Documented by: [id number] Insulin Aspart (Insulin Aspart 100 Units/Ml 3 Ml Pen) 0 units SC Q6 LUIS Stop: 12/11/20 00:00 Last Admin: 11/11/20 00:23 Dose: Not Given Documented by: [id number] Cosigned by: [id number] Magnesium Oxide (Magnesium Oxide 400 Mg Tab) 400 mg PO BID LUIS Stop: 12/10/20 20:59 Last Admin: 11/10/20 20:22 Dose: 400 mg Documented by: [id number] Midodrine (Midodrine Hcl 10 Mg Tab) 10 mg PO TID@0800,1200,1700 [facility] Stop: 12/10/20 18:59 Last Admin: 11/10/20 20:19 Dose: 10 mg Documented by: [id number] Mirtazapine (Mirtazapine Tab 15 Mg Tab) 15 mg PO HS [facility] Stop: 12/10/20 20:59 Last Admin: 11/10/20 20:23 Dose: 15 mg Documented by: [id number] Morphine Sulfate (Morphine Sulfate Cr 15 Mg Tabcr) 15 mg PO Q12H LUIS Stop: 11/24/20 18:59 Last Admin: 11/10/20 21:13 Dose: 15 mg Documented by: [id number] Ondansetron HCl (Ondansetron 8mg Od Tab) 8 mg PO Q8H PRN PRN Reason: Nausea And Vomiting Stop: 12/10/20 18:46 Last Admin: 11/10/20 20:20 Dose: 8 mg Documented by: [id number] Senna/Docusate Sodium (Docusate Sodium/Senna 50/8.6mg Tab) 1 tab PO BID LUIS Stop: 12/10/20 20:59 Last Admin: 11/10/20 20:21 Dose: 1 tab Documented by: [id number] Discontinued Medications Diphenhydramine HCl (Diphenhydramine 50 Mg/Ml Vial) 25 mg IV NOW STA Stop: 11/10/20 12:00 Last Admin: 11/10/20 12:18 Dose: 25 mg Documented by: [id number] Heparin Sodium (Porcine) (Heparin 100 Unit/Ml 5ml Flush) Confirm Administered Dose 5 ml .ROUTE .STK-MED ONE Stop: 11/10/20 19:12 Last Admin: 11/10/20 19:17 Dose: Not Given Documented by: [id number] Sodium Chloride (Nss 1000ml) 1,000 mls @ 999 mls/hr IV .Q1H1M ONE Stop: 11/10/20 12:59 Last Infusion: 11/10/20 14:18 Dose: 0 mls/hr Documented by: [id number] Admin: 11/10/20 12:16 Dose: 999 mls/hr Documented by: [id number] Famotidine (Pepcid 20mg Iv Push) 20 mg in 5 mls @ 2.5 mls/min IV NOW STA Stop: 11/10/20 12:00 Last Admin: 11/10/20 12:16 Dose: 2.5 mls/min Documented by: [id number] Acetaminophen (Ofirmev) 1,000 mg in 100 mls @ 400 mls/hr IV NOW STA Stop: 11/10/20 12:19 Last Infusion: 11/10/20 12:46 Dose: 0 mls/hr Documented by: [id number] Admin: 11/10/20 12:19 Dose: 400 mls/hr Documented by: [id number] Insulin Aspart (Insulin Aspart 100 Units/Ml 3 Ml Pen) 0 units SC ACHS LUIS Stop: 12/10/20 18:59 Last Admin: 11/10/20 21:29 Dose: Not Given Documented by: [id number] Cosigned by: [id number] Admin: 11/10/20 19:59 Dose: Not Given Documented by: [id number] Cosigned by: [id number] Ioversol (Optiray 350 500ml) 110 ml IV ONCE ONE Stop: 11/10/20 12:53 Last Admin: 11/10/20 12:52 Dose: 110 ml Documented by: [id number] Lactobacillus Acidoph/Casei/Rhamnos (Advanced Probiotic 1250 Mg Capsule) 2 cap PO NOW STA Stop: 11/10/20 19:08 Last Admin: 11/10/20 21:14 Dose: 2 cap Documented by: [id number] Metoclopramide HCl (Metoclopramide Hcl Inj 5 Mg/Ml 2 Ml Vial) 10 mg IV NOW STA Stop: 11/10/20 12:01 Last Admin: 11/10/20 12:17 Dose: 10 mg Documented by: [id number] Non-Formulary Medication (Ampicillin-Sulbactam) 3 gm IV Q6H LUIS Stop: 12/10/20 18:34 Last Admin: 11/10/20 21:28 Dose: Not Given Documented by: [id number] Imaging Data Radiologist's Impression: Abdomen/Pelvis CT 11/10/20 11:58 CT angio chest PE protocol, CT abd pelvis IV con only HISTORY: 60 years-old Male with chest/abd pain, metastatic ca PE. Acute chest and abdominal pain with metastatic colon cancer TECHNIQUE: Multiple CTA images of the chest were obtained after the intravenous administration of 110 ml Optiray. Coronal and sagittal MIPS were obtained from the axial data set and were submitted for review. All measurements were obtained according to NASCET criteria. CT abdomen and pelvis with IV contrast only was also obtained. A dose lowering technique was utilized adhering to the principles of ALARA. COMPARISON: Chest radiograph of same day, CT abdomen and pelvis 10/28/2020, chest CT 08/25/2020 FINDINGS: CTA: Moderate cardiomegaly. Trace pericardial effusion. Extensive coronary artery calcifications. Fusiform dilation of the ascending thoracic aorta is unchanged measuring 4.0 x 4.1 cm. No dissection. Patency of the imaged great vessels. Left subclavian [id number] catheter distal tip terminates within the inferior SVC. The pulmonary artery is opacified to the level of the proximal subsegmental branches and demonstrates no filling defects to suggest thromboembolic disease. CT CHEST: Unremarkable thyroid. Hilar lymph nodes measuring up to limits of normal at 9 mm , unchanged. Mildly prominent periaortic lymph nodes at the diaphragmatic hiatus measure up to 11 mm, unchanged from comparison suggestive of metastasis. No pneumothorax or pleural effusion. Bronchial wall thickening suggestive of bronchitis or reactive airway disease. Mucous plugging of the left lower lobe redemonstrated. Linear consolidation of the basal left lower lobe suggestive of atelectasis. Bibasilar predominant solid pulmonary nodules, largest which measures 3.4 cm and the basal left lower lobe on image 72 which is unchanged from the 10/28/2020 exam. 10 mm irregular nodule of the right middle lobe is stable. These findings however have progressed from the 08/25/2020 study. Unremarkable soft tissues with gynecomastia. No acute fracture or suspicious bone lesion. CT ABDOMEN/PELVIS: Splenomegaly measures up to 17.6 cm. Unremarkable adrenal glands. Mild to moderate pancreatic atrophy. Cholelithiasis with gallbladder distention and mild wall thickening. No biliary ductal dilation. Numerous hepatic metastasis, most which are subcentimeter in size appears similar to comparison. Patency of the hepatic and portal veins. Unremarkable right kidney. Asymmetric left renal atrophy. Nonobstructing calculi of the left kidney measure up to 7 mm. No ureteral calculi or hydronephrosis. Mild urinary bladder wall thickening with partial distention. No abdominal aortic aneurysm. Enlarged abdominal and pelvic lymph nodes redemonstrated with index left iliac chain lymph node on image 261 measuring 2.3 x 1.8 cm, stable from comparison. Mild wall thickening of the distal esophagus. There is no small bowel obstruction. A stent within the sigmoid colon extending across an annular lesion is in stable positioning. There is progressive pericolonic inflammation along the proximal portion of the stent. Wall thickening with mucosal hyperemia upstream to the stent redemonstrated. Persistent wall thickening of the rectum and anus with a 1.8 x 0.8 cm air and fluid-filled peripherally enhancing collection along the left lateral margin of the anorectal junction. No large bowel obstruction. There is moderate fecal retention. Normal appendix. Diffuse mesenteric and body wall edema. No acute fracture or new suspicious bone lesion. IMPRESSION: 1. Cardiomegaly without pulmonary emboli. 2. Pulmonary, lawson and hepatic metastasis appear generally stable from the 10/28/2020 exam. 3. Unchanged fusiform dilation of the ascending thoracic aorta, 4.1 x 4.0 cm. 4. Unchanged bronchial wall thickening with left lung base predominant mucus plu gging. 5. Stable positioning of the colonic stent extending across the sigmoid colon lesion. No large bowel obstruction. 6. Persistent wall thickening of the rectum suggestive of a nonspecific proctitis. Additionally, there is a small peripherally enhancing air and fluid- filled 1.8 cm collection along the left lateral margin of the anal rectal ju nction which may represent a small abscess with intramural involvement. 7. Additional findings as above. ACT 112: Negative or not required by law. The above report was generated using voice recognition software. It may contain grammatical, syntax or spelling errors. Electronically signed by: Cornel Higgins M.D. 11/10/2020 1:44 PM Chest CTA 11/10/20 11:58 CT angio chest PE protocol, CT abd pelvis IV con only HISTORY: 60 years-old Male with chest/abd pain, metastatic ca PE. Acute chest and abdominal pain with metastatic colon cancer TECHNIQUE: Multiple CTA images of the chest were obtained after the intravenous administration of 110 ml Optiray. Coronal and sagittal MIPS were obtained from the axial data set and were submitted for review. All measurements were obtained according to NASCET criteria. CT abdomen and pelvis with IV contrast only was also obtained. A dose lowering technique was utilized adhering to the principles of ALARA. COMPARISON: Chest radiograph of same day, CT abdomen and pelvis 10/28/2020, chest CT 08/25/2020 FINDINGS: CTA: Moderate cardiomegaly. Trace pericardial effusion. Extensive coronary artery calcifications. Fusiform dilation of the ascending thoracic aorta is unchanged measuring 4.0 x 4.1 cm. No dissection. Patency of the imaged great vessels. Left subclavian [id number]-[id number] catheter distal tip terminates within the inferior SVC. The pulmonary artery is opacified to the level of the proximal subsegmental branches and demonstrates no filling defects to suggest thromboembolic disease. CT CHEST: Unremarkable thyroid. Hilar lymph nodes measuring up to limits of normal at 9 mm, unchanged. Mildly prominent periaortic lymph nodes at the diaphragmatic hiatus measure up to 11 mm, unchanged from comparison suggestive of metastasis. No pneumothorax or pleural effusion. Bronchial wall thickening suggestive of bronchitis or reactive airway disease. Mucous plugging of the left lower lobe redemonstrated. Linear consolidation of the basal left lower lobe suggestive of atelectasis. Bibasilar predominant solid pulmonary nodules, largest which measures 3.4 cm and the basal left lower lobe on image 72 which is unchanged from the 10/28/2020 exam. 10 mm irregular nodule of the right middle lobe is stable. These findings however have progressed from the 08/25/2020 study. Unremarkable soft tissues with gynecomastia. No acute fracture or suspicious bone lesion. CT ABDOMEN/PELVIS: Splenomegaly measures up to 17.6 cm. Unremarkable adrenal glands. Mild to moderate pancreatic atrophy. Cholelithiasis with gallbladder distention and mild wall thickening. No biliary ductal dilation. Numerous hepatic metastasis, most which are subcentimeter in size appears similar to comparison. Patency of the hepatic and portal veins. Unremarkable right kidney. Asymmetric left renal atrophy. Nonobstructing calculi of the left kidney measure up to 7 mm. No ureteral calculi or hydronephrosis. Mild urinary bladder wall thickening with partial distention. No abdominal aortic aneurysm. Enlarged abdominal and pelvic lymph nodes redemonstrated with index left iliac chain lymph node on image 261 measuring 2.3 x 1.8 cm, stable from comparison. Mild wall thickening of the distal esophagus. There is no small bowel obstru ction. A stent within the sigmoid colon extending across an annular lesion is in stable positioning. There is progressive pericolonic inflammation along the proximal portion of the stent. Wall thickening with mucosal hyperemia upstream to the stent redemonstrated. Persistent wall thickening of the rectum and anus with a 1.8 x 0.8 cm air and fluid-filled peripherally enhancing collection along the left lateral margin of the anorectal junction. No large bowel obstruction. There is moderate fecal retention. Normal appendix. Diffuse mesenteric and body wall edema. No acute fracture or new suspicious bone lesion. IMPRESSION: 1. Cardiomegaly without pulmonary emboli. 2. Pulmonary, lawson and hepatic metastasis appear generally stable from the 10/28/2020 exam. 3. Unchanged fusiform dilation of the ascending thoracic aorta, 4.1 x 4.0 cm. 4. Unchanged bronchial wall thickening with left lung base predominant mucus plugging. 5. Stable positioning of the colonic stent extending across the sigmoid colon lesion. No large bowel obstruction. 6. Persistent wall thickening of the rectum suggestive of a nonspecific proctitis. Additionally, there is a small peripherally enhancing air and fluid- filled 1.8 cm collection along the left lateral margin of the anal rectal junction which may represent a small abscess with intramural involvement. 7. Additional findings as above. ACT 112: Negative or not required by law. The above report was generated using voice recognition software. It may contain grammatical, syntax or spelling errors. Electronically signed by: Cornel Higgins M.D. 11/10/2020 1:44 PM Discharge Plan Visit Data Chief Complaint: Cardiac Assessment Stated Complaint: CHEST PAINS,VOMITING,HEADACHE ED Provider: Clemente Oneill Discharge Problem: Metastatic disease, Intractable nausea and vomiting, Proctocolitis Patient Disposition: Admitted As Inpatient Discharge Instructions Interventions: ED Discharge Assessment Last Done: 11/10/20 17:40 Discharge Problem: Metastatic disease Qualifiers: Area of secondary neoplastic involvement: unspecified site Qualified Code(s): C79.9 - Secondary malignant neoplasm of unspecified site
--- NOTE | 2020-11-10 17:10 | History and Physical Report ---
DATE OF ADMISSION: 11/10/2020 CHIEF COMPLAINT: Nausea, vomiting and also left-sided chest pain. HISTORY OF PRESENT ILLNESS: A 61-year-old male with past medical history significant for descending colon adenocarcinoma diagnosed in 09/2018, stage IV disease, currently on chemo, last chemo was last Friday, he gets chemo every other week, history of colonic stent, history of chemical colitis, history of type 2 diabetes, hyperlipidemia, cholelithiasis, splenomegaly, thrombocytopenia, supraclavicular and retroperitoneal lymphadenopathy,DVT, patient was diagnosed with pyelonephritis and pneumonia in end of August. We also placed him on midodrine for hypotension. He was again admitted to hospital in end of September with Gram-negative bacteremia. He finished the course of antibiotics, Cipro and Flagyl and again, he was admitted to hospital on 10/28/2020 and discharged on 11/03/2020. At that time, he had a partial small-bowel obstruction, seen by GI, and was not a candidate for restenting as per GI. Improved with conservative management and also found to have bacteremia with enterococcus. Echo was okay, and he was discharged on Unasyn to complete 21 days, he is still getting Unasyn. The patient, in last 2 days he had chest pain, the day before was constant, yesterday was intermittent in the left side, but today the pain is resolved and he was having nausea, vomiting, which prompted him to come to the ER and get CT of the chest with no PE. Currently, chest pain is resolved. Nausea is improved with medication in the ER. CT scan showing colonic stent in place showing nonspecific proctitis and possible anal rectal junction small abscess. Currently hemodynamically stable, resting comfortably. Daughter in the room. The patient lives with the daughter and her boyfriend and ambulatory status is poor. He ambulates with a walker and support of the daughter and also get home health at home. Appetite is poor in last few days. Denies any cough, no fever, no chills, no headache, no blurred vision, no earache, no runny nose, no sore throat. Denies any shortness of breath. Since last night he had few episodes of vomiting. Denies any blood in the vomitus. Currently, no abdominal pain. He was constipated, but he was given mag citrate few days ago and after that he had a big bowel movement. Denies any blood in stools or black stools. Denies swelling in the legs, no rash seen. ALLERGIES: No known drug allergies. PAST MEDICAL HISTORY: As mentioned above. PAST SURGICAL HISTORY: Colonoscopy with biopsies, cystoscopy, EGD with endoscopic ultrasounds, A-port placement, removal of the kidney stone in the left side, tonsillectomy, adenoidectomy, repair of inguinal hernia. MEDICATIONS: The patient is on Unasyn 3 grams IV q. 6 hours, vitamin B12 500 mcg p.o. a.m., Lomotil 1 tablet p.o. q.i.d. p.r.n., Colace 100 mg p.o. b.i.d., Lovenox 100 mg subcutaneous daily, ferrous sulfate 325 mg p.o. b.i.d., Levsin 0.125 mg p.o. q. 6 hours p.r.n., Lactinex 1 tablet p.o. t.i.d., milk of magnesia 30 mL p.o. at bedtime p.r.n., magnesium oxide 400 mg p.o. b.i.d., midodrine 10 mg p.o. t.i.d., mirtazapine 15 mg p.o. at bedtime, morphine 15 mg p.o. q. 12 hours, Zofran 8 mg p.o. q. 8 hours p.r.n., oxycodone/acetaminophen 5/325 mg one tablet p.o. q. 6 hours p.r.n., Actos 30 mg p.o. a.m., MiraLax 17 grams p.o. daily p.r.n., Compazine 10 mg p.o. b.i.d. p.r.n., Senokot-S 1 tablet p.o. b.i.d. FAMILY HISTORY: Significant for mother of breast cancer at age of 62, brother has diabetes. Sister has diabetes. Father had stroke. SOCIAL HISTORY: Lives with the daughter. Former smoker. No alcohol use, no drug use. REVIEW OF SYMPTOMS: As per HPI. Rest of review of systems negative. PHYSICAL EXAMINATION: GENERAL: The patient is of moderate build, not in acute distress. VITAL SIGNS: Temperature 36.8, pulse 65, respiratory rate 15, blood pressure 115/68, oxygen 97% room air. HEENT: Pupils equal, round, reactive to light. Oral mucosa moist. NECK: No JVD, no neck masses. CARDIOVASCULAR: S1, S2 heard, regular rate and rhythm, no murmur, no gallop. RESPIRATORY SYSTEM: Normal AP diameter. No accessory muscle use. No wheezing, no crackles. ABDOMEN: Soft, bowel sounds present. Mild left lower quadrant tenderness present, no guarding, no rigidity. No distension. CENTRAL NERVOUS SYSTEM: Alert and oriented. No facial droop. Speech is clear. Obeys simple commands. Moves extremities. EXTREMITIES: No edema, no erythema seen. LABORATORY DATA: WBC 3.8, hemoglobin 9.2, hematocrit 28.9, platelets 76. PT 10.9, INR 1.1, APTT 37.3. Sodium 137, potassium 4.1, chloride 106, bicarbonate 26, BUN 9, creatinine 0.4, serum glucose 150, lactate 0.7, calcium 9.1, phosphorus 3.2, magnesium 1.9, total bilirubin 0.4, direct bilirubin 0.1, AST 13, ALT 16, alkaline phosphatase 118, total creatinine kinase 16. Troponin I less than 0.015. Lipase 28. Procalcitonin 0.08. SARS-CoV-2 PCR negative. Influenza A and B PCR negative, RSV PCR negative. IMAGING: Chest x-ray, no active disease in the chest. CT of abdomen and pelvis with IV contrast only. Cardiomegaly without pulmonary emboli. Pulmonary nodule and lymphatic metastasis appears stable from 10/28/2020 exam, unchanged fusiform dilatation of the ascending thoracic aorta 1.4 cm, unchanged bronchial wall thickening with left lung base predominant mucous plugging, stable position of the colonic stent extending from the sigmoid colon lesion. No large bowel obstruction. Persistent wall thickening of the rectum suggestive of nonspecific proctitis. Additionally, there is a small peripheral enhancing air and fluid level 1.8 cm collection along the left lateral margin of the anorectal junction, which may represent a small abscess with intramural involvement. EKG: Normal sinus rhythm with sinus arrhythmia with rate of 62, no left axis deviation, QTc of 408, no acute ST changes seen. ASSESSMENT AND PLAN: A 60-year-old male with history of stage IV adenocarcinoma of colon on chemo and status post colonic stent for colonic obstruction, history of left lower extremity deep venous thrombosis on Lovenox, history of hypotension on midodrine, chronic pancytopenia, chronic pain on narcotics, presents with nausea, vomiting and chest pain. 1. Chest pain, happened for last 2 days, but this resolved, currently no chest pain. His EKG and troponin are unremarkable. CTA of the chest unremarkable. We will monitor in xTV tele. Follow repeat troponin. We will get an echocardiogram.Cardio consult in am. 2. Nausea and vomiting. We will keep him n.p.o. for now. CT scan showing nonspecific proctitis and possible anorectal junction with air and fluid 1.8 cm possible small abscess. Currently, the patient is on Unasyn for bacteremia with enterococcus.Will continue Unasyn and add IV Flagyl and get GI and surgical consult. Monitor in the xTV tele, monitor the response. 3. History of left lower extremity deep venous thrombosis, on Lovenox. 4. History of hypotension, on midodrine. 5. History of diabetes. We will hold p.o. medications and place on insulin sliding scale. Follow the blood sugars. 6. History of chronic pancytopenia. We will follow the labs. 7. History of bacteremia with enterococcus. Continue his IV Unasyn and was discharged on 11/03/2020 for 3 weeks of IV Unasyn. 8. History of rectal bleeding, we will monitor. 9. Deep venous thrombosis prophylaxis, Lovenox. 10. Disposition. Closely monitor. Level 1 full code. PT and OT prior to discharge. Expect to discharge home and follow with family doctor. ANDREW
[2020-11-10] MEDS ORDERED: HYOSCYAMINE SULFATE 0.125 MG TAB PO PRN (18:35)
[2020-11-10] MEDS ORDERED: SULBACTAM IV SCH (18:35)
[2020-11-10] MEDS ORDERED: AMPICILLIN IV SCH (18:35)
[2020-11-10] MEDS ORDERED: NITROGLYCERIN SL 0.4 MG/TAB TAB SL PRN (18:35)
[2020-11-10] MEDS ORDERED: ACETAMINOPHEN 325 MG TAB PO PRN (18:35)
[2020-11-10] MEDS ORDERED: MAGNESIUM HYDROXIDE SUSP 30 ML UDC PO PRN (18:35)
[2020-11-10] MEDS ORDERED: POLYETHYLENE (MIRALAX) 17 GM PACK PO PRN (18:35)
[2020-11-10] MEDS ORDERED: oxyCODONE/ACETAMINOPHEN 5mg/325mg TAB PO PRN (18:35)
[2020-11-10] MEDS ORDERED: ADVANCED PROBIOTIC 1250 MG CAPSULE PO STA (19:07)
[2020-11-10] MEDS ORDERED: HEPARIN 100 UNIT/ML 5ML FLUSH ONE (19:11)
[2020-11-10] MEDS: SODIUM CHLORIDE 0.9% 1000ML 1,000 ML IV SCH (19:59)
[2020-11-10] MEDS: AMPICILLIN/SULBACTAM SOD 3,000 MG in 0.9 % SODIUM CHLORIDE 100 ML IV SCH (19:59)
[2020-11-10] MEDS: INSULIN ASPART 100 UNITS/ML 3 ML PEN SC SCH ×2 (19:59→21:29)
[2020-11-10] MEDS: metroNIDAZOLE 500 MG/100 ML BAG IV SCH (20:00)
[2020-11-10] MEDS: MIDODRINE HCL 10 MG TAB PO SCH (20:19)
[2020-11-10] MEDS: ONDANSETRON 8MG OD TAB PO PRN (20:20)
[2020-11-10] MEDS: DOCUSATE SODIUM/SENNA 50/8.6MG TAB PO SCH (20:21)
[2020-11-10] MEDS: FERROUS SULFATE 325 MG TAB PO SCH (20:21)
[2020-11-10] MEDS: MAGNESIUM OXIDE 400 MG TAB PO SCH (20:22)
[2020-11-10] MEDS: MIRTAZAPINE TAB 15 MG TAB PO SCH (20:23)
[2020-11-10] MEDS: MoRPHine SULFATE CR 15 MG TABCR PO SCH (21:13)
[2020-11-10] MEDS ORDERED: Nursing to Pharmacy Communication SCH (21:30)
[2020-11-11] MEDS: INSULIN ASPART 100 UNITS/ML 3 ML PEN SC SCH ×5 (00:23→20:52)
--- NOTE | 2020-11-11 01:06 | Surgery Consultation ---
Date of Consultation November 11, 2020 Assessment & Plan (1) Proctitis: pt is a 60 year-old male who is consult with CT scan finding proctitis possible rectal abscess, pt denies any abdominal pain no rectal pain, IMP: proctitis, possible rectal abscess, Plan, base pt has no symptoms, no surgery indication now, conservative treatment first, po bactrim 800/160 one pill po bid x 10 days, F/U colorectal surgeon out- patient, sign off today, please call with questions, thanks, Present on Admission?: Yes History of Present Illness Attending Physician: Joshua Hernandez MD CHIEF COMPLAINT: Nausea, vomiting and also left-sided chest pain. HISTORY OF PRESENT ILLNESS: A 61-year-old male with past medical history significant for descending colon adenocarcinoma diagnosed in 09/2018, stage IV disease, currently on chemo, last chemo was last Friday, he gets chemo every other week, history of colonic stent, history of chemical colitis, history of type 2 diabetes, hyperlipidemia, cholelithiasis, splenomegaly, thrombocytopenia, supraclavicular and retroperitoneal lymphadenopathy,DVT, patient was diagnosed with pyelonephritis and pneumonia in end of August. We also placed him on midodrine for hypotension. He was again admitted to hospital in end of September with Gram-negative bacteremia. He finished the course of antibiotics, Cipro and Flagyl and again, he was admitted to hospital on 10/28/2020 and discharged on 11/03/2020. At that time, he had a partial small-bowel obstruction, seen by GI, and was not a candidate for restenting as per GI. Improved with conservative management and also found to have bacteremia with enterococcus. Echo was okay, and he was discharged on Unasyn to complete 21 days, he is still getting Unasyn. The patient, in last 2 days he had chest pain, the day before was constant, yesterday was intermittent in the left side, but today the pain is resolved and he was having nausea, vomiting, which prompted him to come to the ER and get CT of the chest with no PE. Currently, chest pain is resolved. Nausea is improved with medication in the ER. CT scan showing colonic stent in place showing nonspecific proctitis and possible anal rectal junction small abscess. Currently hemodynamically stable, resting comfortably. Daughter in the room. The patient lives with the daughter and her boyfriend and ambulatory status is poor. He ambulates with a walker and support of the daughter and also get home health at home. Appetite is poor in last few days. Denies any cough, no fever, no chills, no headache, no blurred vision, no earache, no runny nose, no sore throat. Denies any shortness of breath. Since last night he had few episodes of vomiting. Denies any blood in the vomitus. Currently, no abdominal pain. He was constipated, but he was given mag citrate few days ago and after that he had a big bowel movement. Denies any blood in stools or black stools. Denies swelling in the legs, no rash seen. I ( Mack Everett mD ) got a call for consult proctitis possible rectal abscess, I reviewed pt's H/P, labs, CT scan with pt, pt denies abdominal pain, no rectal pain, no bleeding, ALLERGIES: No known drug allergies. PAST MEDICAL HISTORY: As mentioned above. PAST SURGICAL HISTORY: Colonoscopy with biopsies, cystoscopy, EGD with endoscopic ultrasounds, A-port placement, removal of the kidney stone in the left side, tonsillectomy, adenoidectomy, repair of inguinal hernia. MEDICATIONS: The patient is on Unasyn 3 grams IV q. 6 hours, vitamin B12 500 mcg p.o. a.m., Lomotil 1 tablet p.o. q.i.d. p.r.n., Colace 100 mg p.o. b.i.d., Lovenox 100 mg subcutaneous daily, ferrous sulfate 325 mg p.o. b.i.d., Levsin 0.125 mg p.o. q. 6 hours p.r.n., Lactinex 1 tablet p.o. t.i.d., milk of magnesia 30 mL p.o. at bedtime p.r.n., magnesium oxide 400 mg p.o. b.i.d., midodrine 10 mg p.o. t.i.d., mirtazapine 15 mg p.o. at bedtime, morphine 15 mg p.o. q. 12 hours, Zofran 8 mg p.o. q. 8 hours p.r.n., oxycodone/acetaminophen 5/325 mg one tablet p.o. q. 6 hours p.r.n., Actos 30 mg p.o. a.m., MiraLax 17 grams p.o. daily p.r.n., Compazine 10 mg p.o. b.i.d. p.r.n., Senokot-S 1 tablet p.o. b.i.d. FAMILY HISTORY: Significant for mother of breast cancer at age of 62, brother has diabetes. Sister has diabetes. Father had stroke. SOCIAL HISTORY: Lives with the daughter. Former smoker. No alcohol use, no drug use. REVIEW OF SYMPTOMS: As per HPI. Rest of review of systems negative. Allergies Allergy/AdvReac Type Severity Reaction Status Date / Time No Known Allergies Allergy Verified 10/27/20 22:34 Home Medications Medication Instructions Recorded Confirmed Type pioglitazone [Actos] 30 mg PO QAM 04/18/18 11/10/20 History ferrous sulfate 325 mg PO BID 10/02/18 11/10/20 History oxycodone-acetaminophen 1 tab PO Q6 PRN 12/27/19 11/10/20 History prochlorperazine maleate 10 mg PO AMHS PRN 12/27/19 11/10/20 History [Compazine] cyanocobalamin (vitamin B-12) 500 mcg PO QAM 02/11/20 11/10/20 History [Vitamin B-12] diphenoxylate-atropine 1 tab PO QID PRN 02/11/20 11/10/20 History hyoscyamine sulfate [Levsin] 0.125 mg PO Q6H PRN 02/11/20 11/10/20 History morphine 15 mg PO Q12H 04/01/20 11/10/20 History ondansetron HCl 8 mg PO Q8H PRN 05/06/20 11/10/20 History mirtazapine 15 mg PO HS 06/23/20 11/10/20 History midodrine 10 mg PO TID@0800,1200,1700 30 08/29/20 11/10/20 Rx Days #90 tab docusate sodium [Colace] 100 mg PO BID 09/25/20 11/10/20 History magnesium hydroxide [Milk of 30 ml PO HS PRN 09/25/20 11/10/20 History Magnesia] sennosides [senna] 8.6 mg PO DAILY 09/25/20 11/10/20 History ampicillin-sulbactam 3 g IV Q6H #60 ea 11/03/20 11/10/20 Rx magnesium oxide 400 mg PO BID #10 tab 11/03/20 11/10/20 Rx polyethylene glycol 3350 [Miralax] 17 g PO DAILY PRN #30 ea 11/03/20 11/10/20 Rx sennosides-docusate sodium 1 tab PO BID #60 tab 11/03/20 11/10/20 Rx [Senokot-S] Lactinex 1 tab PO TIDM 11/10/20 11/10/20 History enoxaparin 100 mg SUBCUT DAILY 11/10/20 11/10/20 History Patient History Medical History (Updated 11/11/20 @ 01:08 by Mack Everett MD) Acute lower GI bleeding Anxiety C. difficile colitis hx ~2017. 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 Depression Diverticulitis of colon with perforation NO SURGERY DM type 2 (diabetes mellitus, type 2) Dyslipidemia Immunocompromised Kidney stones Obesity Osteoarthritis Pancytopenia Follows with heme Splenomegaly r/t chemotherapy Surgical History History of colonoscopy History of cystoscopy STONE REMOVAL WITH STENT PLACED History of esophagogastroduodenoscopy (EGD) History of tooth extraction History of vascular access device RIGHT UPPER CHEST PLACED 09/2018 Hx of hernia repair Hx of tonsillectomy Family History Mother , Age 62 Breast cancer Father , Age 62 Stroke Sister Family history of diabetes mellitus Brother Family history of diabetes mellitus Brother Family history of diabetes mellitus Other No family history of adverse response to anesthesia Social History Smoking Status: Former smoker Tobacco Type: Cigarettes Second Hand Exposure: Yes; Do You Dip or Chew Tobacco: No; Tobacco Cessation Education Requested by Patient: No Hx Alcohol Use: No Hx Substance Use: No Preferred Language: Citizen Of [place] Communication Ability: Effective Visual Impairment: No Limitations Pizza Delivery Required: No Beliefs That Will Affect Care: None marital status: Current Living Situation: Family Current Living Situation Comment: daughter lives with him How many Children do You have: 1 Other Information That Helps Us Care for You: No Feels Safe at Home: Yes Safety Concerns: Feels Safe At This Time Assistive Devices: Walker Physical Exam Constitutional: WD/WN, vitals as above well developed and well nourished Eyes: PERRL, conjunctivae normal, anicteric sclerae ENMT: external ear and nose normal, oropharynx normal Neck: trachea midline, no thyromegaly Respiratory: normal respiratory effort, lungs clear to auscultation normal respiratory effort Cardiovascular: RRR, no murmur, no edema Rate/Rhythm: regular rate and regular rhythm Gastrointestinal (Abdomen): normal bowel sounds, soft, nontender, no hepatosplenomegaly rectal exam, no tenderness at rectal, no mass, no active bleeding, Musculoskeletal: no cyanosis or clubbing, extremities motor strength 5/5 Neurologic: awake Psychiatric: Orientation: alert and oriented x 3 Results & Data ([facility]) Vital Signs (Past 12 Hours) Vital Signs Temp Pulse Pulse Resp BP BP Pulse Ox 11/10/20 23:01 36.4 C L 66 18 124/65 97 11/10/20 22:19 66 11/10/20 19:19 67 11/10/20 19:05 36.5 C 62 18 119/69 97 11/10/20 18:35 36.4 C L 69 149/74 H 98 11/10/20 17:08 59 L 15 104/65 99 11/10/20 17:00 62 15 104/65 98 11/10/20 16:30 62 14 97 11/10/20 16:00 61 14 97 11/10/20 15:30 60 15 99 11/10/20 15:00 65 15 115/68 99 11/10/20 14:00 58 L 16 99 11/10/20 13:20 60 16 100 11/10/20 13:12 59 L 16 112/68 99 Laboratory Results Abnormal lab results 11/10/20 11/10/20 11/10/20 Range/Units 11:47 11:47 11:47 WBC 3.80 L (4.8-10.8) K/uL RBC 3.16 L (4.7-6.1) M/uL Hgb 9.2 L (14.0-18.0) g/dL Hct 28.9 L (42-52) % MCHC 31.8 L (32-36) g/dL RDW Std Deviation 52.2 H (36.4-46.3) fL RDW Coeff of Ivette 15.5 H (11.5-14.5) % Plt Count 76 L (130-400) K/uL Lymph # (Auto) 0.52 L (1.2-3.4) K/uL APTT 37.3 H (21.0-31.0) Seconds Creatinine 0.49 L (0.6-1.4) mg/dl Glucose 150 H (70-99) mg/dl POC Glucose (70-99) mg/dl AST 13 L (15-37) U/L Alkaline Phosphatase 118 H (45-117) U/L Total Creatine Kinase (39-308) U/L Albumin 2.9 L (3.4-5.0) gm/dl Globulin 4.2 H (2.5-4.0) gm/dl Albumin/Globulin Ratio 0.7 L (0.9-2) Lipase (73-393) U/L 11/10/20 11/10/20 11/11/20 Range/Units 11:47 18:41 00:12 WBC (4.8-10.8) K/uL RBC (4.7-6.1) M/uL Hgb (14.0-18.0) g/dL Hct (42-52) % MCHC (32-36) g/dL RDW Std Deviation (36.4-46.3) fL RDW Coeff of Ivette (11.5-14.5) % Plt Count (130-400) K/uL Lymph # (Auto) (1.2-3.4) K/uL APTT (21.0-31.0) Seconds Creatinine (0.6-1.4) mg/dl Glucose (70-99) mg/dl POC Glucose 106 H 108 H (70-99) mg/dl AST (15-37) U/L Alkaline Phosphatase (45-117) U/L Total Creatine Kinase 16 L (39-308) U/L Albumin (3.4-5.0) gm/dl Globulin (2.5-4.0) gm/dl Albumin/Globulin Ratio (0.9-2) Lipase 28 L (73-393) U/L Diagnostic Findings CT angio chest PE protocol, CT abd pelvis IV con only HISTORY: 60 years-old Male with chest/abd pain, metastatic ca PE. Acute chest and abdominal pain with metastatic colon cancer TECHNIQUE: Multiple CTA images of the chest were obtained after the intravenous administration of 110 ml Optiray. Coronal and sagittal MIPS were obtained from the axial data set and were submitted for review. All measurements were obtained according to NASCET criteria. CT abdomen and pelvis with IV contrast only was also obtained. A dose lowering technique was utilized adhering to the principles of ALARA. COMPARISON: Chest radiograph of same day, CT abdomen and pelvis 10/28/2020, chest CT 08/25/2020 FINDINGS: CTA: Moderate cardiomegaly. Trace pericardial effusion. Extensive coronary artery calcifications. Fusiform dilation of the ascending thoracic aorta is unchanged measuring 4.0 x 4.1 cm. No dissection. Patency of the imaged great vessels. Left subclavian [id number] catheter distal tip terminates within the inferior SVC. The pulmonary artery is opacified to the level of the proximal subsegmental branches and demonstrates no filling defects to suggest thromboembolic disease. CT CHEST: Unremarkable thyroid. Hilar lymph nodes measuring up to limits of normal at 9 mm, unchanged. Mildly prominent periaortic lymph nodes at the diaphragmatic hiatus measure up to 11 mm, unchanged from comparison suggestive of metastasis. No pneumothorax or pleural effusion. Bronchial wall thickening suggestive of bronchitis or reactive airway disease. Mucous plugging of the left lower lobe redemonstrated. Linear consolidation of the basal left lower lobe suggestive of atelectasis. Bibasilar predominant solid pulmonary nodules, largest which measures 3.4 cm and the basal left lower lobe on image 72 which is unchanged from the 10/28/2020 exam. 10 mm irregular nodule of the right middle lobe is stable. These findings however have progressed from the 08/25/2020 study. Unremarkable soft tissues with gynecomastia. No acute fracture or suspicious bone lesion. CT ABDOMEN/PELVIS: Splenomegaly measures up to 17.6 cm. Unremarkable adrenal glands. Mild to moderate pancreatic atrophy. Cholelithiasis with gallbladder distention and mild wall thickening. No biliary ductal dilation. Numerous hepatic metastasis, most which are subcentimeter in size appears similar to comparison. Patency of the hepatic and portal veins. Unremarkable right kidney. Asymmetric left renal atrophy. Nonobstructing calculi of the left kidney measure up to 7 mm. No ureteral calculi or hydronephrosis. Mild urinary bladder wall thickening with partial distention. No abdominal aortic aneurysm. Enlarged abdominal and pelvic lymph nodes redemonstrated with index left iliac chain lymph node on image 261 measuring 2.3 x 1.8 cm, stable from comparison. Mild wall thickening of the distal esophagus. There is no small bowel obstruction. A stent within the sigmoid colon extending across an annular lesion is in stable positioning. There is progressive pericolonic inflammation along the proximal portion of the stent. Wall thickening with mucosal hyperemia upstream to the stent redemonstrated. Persistent wall thickening of the rectum and anus with a 1.8 x 0.8 cm air and fluid-filled peripherally enhancing collection along the left lateral margin of the anorectal junction. No large bowel obstruction. There is moderate fecal retention. Normal appendix. Diffuse mesenteric and body wall edema. No acute fracture or new suspicious bone lesion. IMPRESSION: 1. Cardiomegaly without pulmonary emboli. 2. Pulmonary, lawson and hepatic metastasis appear generally stable from the 10/28/2020 exam. 3. Unchanged fusiform dilation of the ascending thoracic aorta, 4.1 x 4.0 cm. 4. Unchanged bronchial wall thickening with left lung base predominant mucus plugging. 5. Stable positioning of the colonic stent extending across the sigmoid colon lesion. No large bowel obstruction. 6. Persistent wall thickening of the rectum suggestive of a nonspecific proctitis. Additionally, there is a small peripherally enhancing air and fluid- filled 1.8 cm collection along the left lateral margin of the anal rectal junction which may represent a small abscess with intramural involvement. 7. Additional findings as above.
[2020-11-11] MEDS: AMPICILLIN/SULBACTAM SOD 3,000 MG in 0.9 % SODIUM CHLORIDE 100 ML IV SCH ×4 (02:07→20:42)
[2020-11-11] MEDS: metroNIDAZOLE 500 MG/100 ML BAG IV SCH ×3 (02:12→18:27)
[2020-11-11] MEDS: ONDANSETRON INJ 2 MG/ML 2 ML VIAL IV PRN ×2 (03:15→21:49)
[2020-11-11] MEDS: SODIUM CHLORIDE 0.9% 1000ML 1,000 ML IV SCH ×3 (04:15→22:34)
[2020-11-11 05:19] LABS: Hematocrit (blood only) 24.6 % (42-52); Hemoglobin 7.9 g/dL (14.0-18.0); Mean Corpuscular Hemoglobin 29.6 pg (25-34); Mean Corpuscular Hgb Conc 32.1 g/dL (32-36); Mean Corpuscular Volume 92.1 fL (80-100); RDW Coefficient of Variation 15.4 % (11.5-14.5); RDW Standard Deviation 52.2 fL (36.4-46.3); Red Blood Count 2.67 M/uL (4.7-6.1); White Blood Count 2.37 K/uL (4.8-10.8)
[2020-11-11 05:22] LABS: Mean Platelet Volume 8.5 fL (7.4-10.4); Platelet Count 63 K/uL (130-400)
[2020-11-11 05:45] LABS: BUN Creatinine Ratio 17.7 (10-20); Calcium 8.5 mg/dl (8.5-10.1); Creatinine Clr Calc Pharmacy 157.1 ml/min; Est GFR (African American) 141.9; Est GFR (Non-African American) 122.4; Magnesium 1.9 mg/dl (1.8-2.4); Potassium 3.6 mmol/L (3.5-5.1)
[2020-11-11 06:09] LABS: Eosinophils # (auto) 0.05 K/uL (0-0.5); Eosinophils % (auto) 2.1 %; Lymphocytes # (auto) 0.44 K/uL (1.2-3.4); Lymphocytes % (auto) 18.6 %; Monocytes # (auto) 0.24 K/uL (0.11-0.59); Monocytes % (auto) 10.1 %; Neutrophils # (auto) 1.64 K/uL (1.4-6.5); Neutrophils % (auto) 69.2 %; RBC Morphology Unremarkable
[2020-11-11] MEDS: MoRPHine SULFATE CR 15 MG TABCR PO SCH ×2 (06:20→18:31)
[2020-11-11 07:01] LABS: Estimated Average Glucose 117 mg/dl; Hemoglobin A1C 5.7 % (4.5-5.6)
[2020-11-11] MEDS: ONDANSETRON 8MG OD TAB PO PRN (07:59)
[2020-11-11] MEDS: ADVANCED PROBIOTIC 1250 MG CAPSULE PO SCH ×4 (08:01→17:06)
[2020-11-11] MEDS: CYANOCOBALAMIN 500 MCG TABLET (VITAMIN B-12) PO SCH ×2 (08:01→09:26)
[2020-11-11] MEDS: ENOXAPARIN 100 MG/1ML SYR SQ SCH (08:02)
[2020-11-11] MEDS: DOCUSATE SODIUM/SENNA 50/8.6MG TAB PO SCH ×3 (08:02→20:45)
[2020-11-11] MEDS: FERROUS SULFATE 325 MG TAB PO SCH ×3 (08:02→20:46)
[2020-11-11] MEDS: MAGNESIUM OXIDE 400 MG TAB PO SCH ×3 (08:02→20:54)
[2020-11-11] MEDS: MIDODRINE HCL 10 MG TAB PO SCH ×3 (09:26→17:06)
--- NOTE | 2020-11-11 10:09 | Cardiology Consultation ---
Date of Consultation November 11, 2020 Assessment & Plan (1) Proctocolitis: (2) Anemia: Colitis / proctitis suggested on CT a/p. CTA chest witout pulmonary embolism. Patient without symptoms or clinical findings thus far to suggest an acute coronary syndrome. Troponin negative x 3. EKG is reassuring. Repeat limited echo for wall motion. Agree with antibiotic treatment. Stable mild ascending aorta dilatation on CT, 4.1 cm. Anemia due to chemotherapy. Agree with lovenox , full anticoagulation dose given h/o DVT, malignancy. History of Present Illness Attending Physician: Jase Ellis MD History of Present Illness Mr Acosta is a 60 year old male seen in cardiology consultation per the request of Dr Hernandez for the evaluation of chest pain. During my interview / exam of patient in room 286 he denies chest pain. His most significant subjective complain is ongoing nausea. History is notable for Stage IV adenocarcinoma of the colon diagnosed in 09/2018 for which he is on going chemotherapy with resultant anemia. Last month, he was hospitalized with findings of enteroccal bacteremia prompting plan for a 21 day course of IV Unasyn. Allergies Allergy/AdvReac Type Severity Reaction Status Date / Time No Known Allergies Allergy Verified 10/27/20 22:34 Home Medications Medication Instructions Recorded Confirmed Type pioglitazone [Actos] 30 mg PO QAM 04/18/18 11/10/20 History ferrous sulfate 325 mg PO BID 10/02/18 11/10/20 History oxycodone-acetaminophen 1 tab PO Q6 PRN 12/27/19 11/10/20 History prochlorperazine maleate 10 mg PO AMHS PRN 12/27/19 11/10/20 History [Compazine] cyanocobalamin (vitamin B-12) 500 mcg PO QAM 02/11/20 11/10/20 History [Vitamin B-12] diphenoxylate-atropine 1 tab PO QID PRN 02/11/20 11/10/20 History hyoscyamine sulfate [Levsin] 0.125 mg PO Q6H PRN 02/11/20 11/10/20 History morphine 15 mg PO Q12H 04/01/20 11/10/20 History ondansetron HCl 8 mg PO Q8H PRN 05/06/20 11/10/20 History mirtazapine 15 mg PO HS 06/23/20 11/10/20 History midodrine 10 mg PO TID@0800,1200,1700 30 08/29/20 11/10/20 Rx Days #90 tab docusate sodium [Colace] 100 mg PO BID 09/25/20 11/10/20 History magnesium hydroxide [Milk of 30 ml PO HS PRN 09/25/20 11/10/20 History Magnesia] sennosides [senna] 8.6 mg PO DAILY 09/25/20 11/10/20 History ampicillin-sulbactam 3 g IV Q6H #60 ea 11/03/20 11/10/20 Rx magnesium oxide 400 mg PO BID #10 tab 11/03/20 11/10/20 Rx polyethylene glycol 3350 [Miralax] 17 g PO DAILY PRN #30 ea 11/03/20 11/10/20 Rx sennosides-docusate sodium 1 tab PO BID #60 tab 11/03/20 11/10/20 Rx [Senokot-S] Lactinex 1 tab PO TIDM 11/10/20 11/10/20 History enoxaparin 100 mg SUBCUT DAILY 11/10/20 11/10/20 History Patient History Medical History Acute lower GI bleeding Anxiety C. difficile colitis hx ~2018. 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 Depression Diverticulitis of colon with perforation NO SURGERY DM type 2 (diabetes mellitus, type 2) Dyslipidemia Immunocompromised Kidney stones Obesity Osteoarthritis Pancytopenia Follows with heme Splenomegaly r/t chemotherapy Surgical History History of colonoscopy History of cystoscopy STONE REMOVAL WITH STENT PLACED History of esophagogastroduodenoscopy (EGD) History of tooth extraction History of vascular access device RIGHT UPPER CHEST PLACED 09/2018 Hx of hernia repair Hx of tonsillectomy Family History Mother , Age 62 Breast cancer Father , Age 62 Stroke Sister Family history of diabetes mellitus Brother Family history of diabetes mellitus Brother Family history of diabetes mellitus Other No family history of adverse response to anesthesia Social History Smoking Status: Former smoker Tobacco Type: Cigarettes Second Hand Exposure: Yes; Do You Dip or Chew Tobacco: No; Tobacco Cessation Education Requested by Patient: No Hx Alcohol Use: No Hx Substance Use: No Preferred Language: [place] Communication Ability: Effective Visual Impairment: No Limitations Metal Painter Required: No Beliefs That Will Affect Care: None marital status: Current Living Situation: Family Current Living Situation Comment: daughter lives with him How many Children do You have: 1 Other Information That Helps Us Care for You: No Feels Safe at Home: Yes Safety Concerns: Feels Safe At This Time Assistive Devices: Walker Review of Systems Review of Systems: All systems reviewed & are unremarkable except as noted in HPI & below Physical Exam Physical Exam: Temp Pulse Resp BP Pulse Ox 36.5 C 68 16 133/78 96 11/11/20 07:00 11/11/20 07:37 11/11/20 07:00 11/11/20 07:00 11/11/20 07:00 Constitutional: WD/WN, vitals as above Respiratory: normal respiratory effort, lungs clear to auscultation Cardiovascular: RRR, no murmur, no edema Neurologic: PERRL, EOMI, accommodation nl, no face palsy, no dysarthria Results & Data ([facility]) Vital Signs (Past 12 Hours) Vital Signs Temp Pulse Pulse Resp BP Pulse Ox 11/11/20 07:37 68 11/11/20 07:00 36.5 C 68 16 133/78 96 11/11/20 04:33 36.8 C 68 18 124/73 97 11/10/20 23:01 36.4 C L 66 18 124/65 97 11/10/20 22:19 66 Laboratory Results Cardiac Enzymes 11/10/20 11/10/20 11/11/20 Range/Units 11:47 19:15 00:24 AST 13 L (15-37) U/L Troponin I < 0.015 < 0.015 < 0.015 (0-0.045) ng/ml Coagulation 11/10/20 Range/Units 11:47 PT 10.9 (9.0-12.0) Seconds APTT 37.3 H (21.0-31.0) Seconds CBC 11/10/20 11/11/20 Range/Units 11:47 05:04 WBC 3.80 L 2.37 L (4.8-10.8) K/uL RBC 3.16 L 2.67 L (4.7-6.1) M/uL Hgb 9.2 L 7.9 L (14.0-18.0) g/dL Hct 28.9 L 24.6 L (42-52) % Plt Count 76 L 63 L (130-400) K/uL Neut # (Auto) 2.90 1.64 (1.4-6.5) K/uL Lymph # (Auto) 0.52 L 0.44 L (1.2-3.4) K/uL [place] # (Auto) 0.33 0.24 (0.11-0.59) K/uL Eos # (Auto) 0.05 0.05 (0-0.5) K/uL Baso # (Auto) 0.00 0.00 (0-0.2) K/uL Comprehensive Metabolic Panel 11/10/20 11/10/20 11/11/20 Range/Units 11:47 11:47 05:04 Sodium 137 140 (136-145) mmol/L Potassium 4.1 3.6 (3.5-5.1) mmol/L Chloride 106 108 H (98-107) mmol/L Carbon Dioxide 26 30 (21-32) mmol/L BUN 9 8 (7-18) mg/dl Creatinine 0.49 L 0.44 L (0.6-1.4) mg/dl Glucose 150 H 101 H (70-99) mg/dl Calcium 9.1 8.5 (8.5-10.1) mg/dl Direct Bilirubin 0.1 (0-0.2) mg/dl AST 13 L (15-37) U/L ALT 16 (12-78) U/L Alkaline Phosphatase 118 H (45-117) U/L Total Protein 7.1 (6.4-8.2) gm/dl Albumin 2.9 L (3.4-5.0) gm/dl Intake and Output 11/10/20 11/11/20 11/11/20 22:59 06:59 14:59 Intake Total 208 / 2913.917 1605.917 / 2913.917 312.167 / 312.167 Balance 208 / 2913.917 1605.917 / 2913.917 312.167 / 312.167 Intake: IV 208 / 2813.917 1505.917 / 2813.917 312.167 / 312.167 Ampicillin/Sulbactam Sod 3,000 108 / 216 108 / 216 108 / 108 mg In 0.9 % Sodium Chloride 100 ml @ 216 mls/hr IV Q6H [facility] Rx# :[id number] Sodium Chloride 0.9% 1000ML 1, 1297.917 / 1297.917 204.167 / 204.167 000 ml @ 125 mls/hr IV .Q8H [facility] Rx#:[id number] metroNIDAZOLE 500 mg In 100 ml 100 / 200 100 / 200 @ 100 mls/hr IV Q8H [facility] Rx#: [id number] Oral 100 / 100 Other: Weight 71 kg Weight Measurement Method Standing Scale Diagnostic Findings EKG on 11/10/20 revealed SR at 62, normal ST segments. (1) Anemia Anemia type: unspecified type Qualified Code(s): D64.9 - Anemia, unspecified
--- NOTE | 2020-11-11 10:48 | Gastrointestinal Consultation ---
Date of Consultation November 11, 2020 Assessment & Plan (1) Proctitis: Continue laxatives for possible stercoral proctitis. ABx. Management of perirectal abscess per surgical team. Discuss with Oncology the need to continue Chemotherapy in view of recurrent infections. Recall GI if needed. (2) Colon cancer: (3) Perirectal abscess: History of Present Illness Attending Physician: Jase Ellis MD 60 years old male patient with known stage 4 colon cancer s/p colon stent x2, on chemotherapy, DM, hyperlipidemia, cholelithiasis, recent bacteremia with enterococcus, presented with chest pain, nausea and vomiting. Imaging showed proctitis which seems to be chronic and a 1.8 mm perirectal abscess. Patient denies any rectal bleeding, pain or fever. His symptoms resolved today and he feels fine. Allergies Allergy/AdvReac Type Severity Reaction Status Date / Time No Known Allergies Allergy Verified 10/27/20 22:34 Home Medications Medication Instructions Recorded Confirmed Type pioglitazone [Actos] 30 mg PO QAM 04/18/18 11/10/20 History ferrous sulfate 325 mg PO BID 10/02/18 11/10/20 History oxycodone-acetaminophen 1 tab PO Q6 PRN 12/27/19 11/10/20 History prochlorperazine maleate 10 mg PO AMHS PRN 12/27/19 11/10/20 History [Compazine] cyanocobalamin (vitamin B-12) 500 mcg PO QAM 02/11/20 11/10/20 History [Vitamin B-12] diphenoxylate-atropine 1 tab PO QID PRN 02/11/20 11/10/20 History hyoscyamine sulfate [Levsin] 0.125 mg PO Q6H PRN 02/11/20 11/10/20 History morphine 15 mg PO Q12H 04/01/20 11/10/20 History ondansetron HCl 8 mg PO Q8H PRN 05/06/20 11/10/20 History mirtazapine 15 mg PO HS 06/23/20 11/10/20 History midodrine 10 mg PO TID@0800,1200,1700 30 08/29/20 11/10/20 Rx Days #90 tab docusate sodium [Colace] 100 mg PO BID 09/25/20 11/10/20 History magnesium hydroxide [Milk of 30 ml PO HS PRN 09/25/20 11/10/20 History Magnesia] sennosides [senna] 8.6 mg PO DAILY 09/25/20 11/10/20 History ampicillin-sulbactam 3 g IV Q6H #60 ea 11/03/20 11/10/20 Rx magnesium oxide 400 mg PO BID #10 tab 11/03/20 11/10/20 Rx polyethylene glycol 3350 [Miralax] 17 g PO DAILY PRN #30 ea 11/03/20 11/10/20 Rx sennosides-docusate sodium 1 tab PO BID #60 tab 11/03/20 11/10/20 Rx [Senokot-S] Lactinex 1 tab PO TIDM 11/10/20 11/10/20 History enoxaparin 100 mg SUBCUT DAILY 11/10/20 11/10/20 History Patient History Medical History (Updated 11/11/20 @ 12:18 by Dillon Wong MD) Acute lower GI bleeding Anxiety C. difficile colitis hx ~2017. 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 Depression Diverticulitis of colon with perforation NO SURGERY DM type 2 (diabetes mellitus, type 2) Dyslipidemia Immunocompromised Kidney stones Obesity Osteoarthritis Pancytopenia Follows with heme Splenomegaly r/t chemotherapy Surgical History History of colonoscopy History of cystoscopy STONE REMOVAL WITH STENT PLACED History of esophagogastroduodenoscopy (EGD) History of tooth extraction History of vascular access device RIGHT UPPER CHEST PLACED 09/2018 Hx of hernia repair Hx of tonsillectomy Family History Mother , Age 62 Breast cancer Father , Age 62 Stroke Sister Family history of diabetes mellitus Brother Family history of diabetes mellitus Brother Family history of diabetes mellitus Other No family history of adverse response to anesthesia Social History Smoking Status: Former smoker Tobacco Type: Cigarettes Second Hand Exposure: Yes; Do You Dip or Chew Tobacco: No; Tobacco Cessation Education Requested by Patient: No Hx Alcohol Use: No Hx Substance Use: No Preferred Language: Occitan Communication Ability: Effective Visual Impairment: No Limitations Overhead Worker Required: No Beliefs That Will Affect Care: None marital status: Current Living Situation: Family Current Living Situation Comment: daughter lives with him How many Children do You have: 1 Other Information That Helps Us Care for You: No Feels Safe at Home: Yes Safety Concerns: Feels Safe At This Time Assistive Devices: Walker Review of Systems Constitutional: no fever, no chills, no fatigue and no weight loss Eyes: no eye pain and no worsening vision Ear, Nose, Mouth, Throat: no tinnitus, no dizziness, no nasal discharge and no epistaxis Respiratory: no cough, no dyspnea, no dyspnea on exertion and no wheezing Cardiovascular: no chest pain, no orthopnea, no palpitations and no edema Gastrointestinal: as per Subjective / HPI Musculoskeletal: no stiffness and no myalgia Neurologic: no localized weakness, no paralysis, no tremor(s) and no headache(s) Endocrine: no polydipsia and no polyuria Hematologic / Lymphatic: no easy bleeding and no night sweats Physical Exam Constitutional: + well hydrated, cooperative and comfortable Eyes: PERRL, conjunctivae normal, anicteric sclerae ENMT: external ear and nose normal, oropharynx normal Neck: normal visual inspection and trachea midline Respiratory: normal respiratory effort, lungs clear to auscultation Auscultation: no wheezes Cardiovascular: RRR, no murmur, no edema Gastrointestinal (Abdomen): normal bowel sounds, soft, nontender, no hepatosplenomegaly Musculoskeletal: no cyanosis or clubbing, extremities motor strength 5/5 Skin: no rashes, warm and dry Neurologic: awake; no focal motor deficits Motor/Sensory: no tremor Results & Data ([facility]) Vital Signs (Past 12 Hours) Vital Signs Temp Pulse Pulse Resp BP Pulse Ox 11/11/20 07:37 68 11/11/20 07:00 36.5 C 68 16 133/78 96 11/11/20 04:33 36.8 C 68 18 124/73 97 11/10/20 23:01 36.4 C L 66 18 124/65 97 Laboratory Results Laboratory Results - last 24 hr 11/10/20 11/10/20 11/10/20 11:47 11:47 11:47 WBC RBC Hgb Hct MCV MCH MCHC RDW Std Deviation RDW Coeff of Ivette Plt Count 76 L MPV 9.4 Immature Gran % (Auto) 0.0 Neut % (Auto) 76.3 Lymph % (Auto) 13.7 Dewey % (Auto) 8.7 Eos % (Auto) 1.3 Baso % (Auto) 0.0 Neut # (Auto) 2.90 Lymph # (Auto) 0.52 L Dewey # (Auto) 0.33 Eos # (Auto) 0.05 Baso # (Auto) 0.00 Immature Gran # (Auto) 0.00 RBC Morphology Sodium 137 Potassium 4.1 Chloride 106 Carbon Dioxide 26 Anion Gap 5.0 BUN 9 Creatinine 0.49 L Est Cr Clr Drug Dosing Not Reportable Est GFR ( Amer) 135.7 Est GFR (Non-Af Amer) 117.1 BUN/Creatinine Ratio 19.2 Glucose 150 H POC Glucose Estimat Average Glucose Hemoglobin A1c Lactate Calcium 9.1 Phosphorus 3.2 Magnesium 1.9 Total Bilirubin 0.4 Direct Bilirubin 0.1 AST 13 L ALT 16 Alkaline Phosphatase 118 H Total Creatine Kinase 16 L Troponin I < 0.015 Total Protein 7.1 Albumin 2.9 L Globulin 4.2 H Albumin/Globulin Ratio 0.7 L Lipase 28 L Procalcitonin COVID-19 Eval Order SARS-CoV-2 (PCR) Influenza Type A (PCR) Influenza Type B (PCR) RSV (RT-PCR) 11/10/20 11/10/20 11/10/20 12:20 12:20 14:45 WBC RBC Hgb Hct MCV MCH MCHC RDW Std Deviation RDW Coeff of Ivette Plt Count MPV Immature Gran % (Auto) Neut % (Auto) Lymph % (Auto) Dewey % (Auto) Eos % (Auto) Baso % (Auto) Neut # (Auto) Lymph # (Auto) Dewey # (Auto) Eos # (Auto) Baso # (Auto) Immature Gran # (Auto) RBC Morphology Sodium Potassium Chloride Carbon Dioxide Anion Gap BUN Creatinine Est Cr Clr Drug Dosing Est GFR ( Amer) Est GFR (Non-Af Amer) BUN/Creatinine Ratio Glucose POC Glucose Estimat Average Glucose Hemoglobin A1c Lactate 0.7 Calcium Phosphorus Magnesium Total Bilirubin Direct Bilirubin AST ALT Alkaline Phosphatase Total Creatine Kinase Troponin I Total Protein Albumin Globulin Albumin/Globulin Ratio Lipase Procalcitonin COVID-19 Eval Order CovFluRsv at [facility] SARS-CoV-2 (PCR) NEGATIVE Influenza Type A (PCR) Negative Influenza Type B (PCR) Negative RSV (RT-PCR) Negative 11/10/20 11/10/20 11/10/20 14:45 18:41 19:15 WBC RBC Hgb Hct MCV MCH MCHC RDW Std Deviation RDW Coeff of Ivette Plt Count MPV Immature Gran % (Auto) Neut % (Auto) Lymph % (Auto) Dewey % (Auto) Eos % (Auto) Baso % (Auto) Neut # (Auto) Lymph # (Auto) Dewey # (Auto) Eos # (Auto) Baso # (Auto) Immature Gran # (Auto) RBC Morphology Sodium Potassium Chloride Carbon Dioxide Anion Gap BUN Creatinine Est Cr Clr Drug Dosing Est GFR ( Amer) Est GFR (Non-Af Amer) BUN/Creatinine Ratio Glucose POC Glucose 106 H Estimat Average Glucose Hemoglobin A1c Lactate Calcium Phosphorus Magnesium Total Bilirubin Direct Bilirubin AST ALT Alkaline Phosphatase Total Creatine Kinase Troponin I < 0.015 Total Protein Albumin Globulin Albumin/Globulin Ratio Lipase Procalcitonin 0.08 COVID-19 Eval Order SARS-CoV-2 (PCR) Influenza Type A (PCR) Influenza Type B (PCR) RSV (RT-PCR) 11/11/20 11/11/20 11/11/20 00:12 00:24 05:04 WBC 2.37 L RBC 2.67 L Hgb 7.9 L Hct 24.6 L MCV 92.1 MCH 29.6 MCHC 32.1 RDW Std Deviation 52.2 H RDW Coeff of Ivette 15.4 H Plt Count 63 L MPV 8.5 Immature Gran % (Auto) 0.0 Neut % (Auto) 69.2 Lymph % (Auto) 18.6 Dewey % (Auto) 10.1 Eos % (Auto) 2.1 Baso % (Auto) 0.0 Neut # (Auto) 1.64 Lymph # (Auto) 0.44 L Dewey # (Auto) 0.24 Eos # (Auto) 0.05 Baso # (Auto) 0.00 Immature Gran # (Auto) 0.00 RBC Morphology Unremarkable Sodium Potassium Chloride Carbon Dioxide Anion Gap BUN Creatinine Est Cr Clr Drug Dosing Est GFR ( Amer) Est GFR (Non-Af Amer) BUN/Creatinine Ratio Glucose POC Glucose 108 H Estimat Average Glucose Hemoglobin A1c Lactate Calcium Phosphorus Magnesium Total Bilirubin Direct Bilirubin AST ALT Alkaline Phosphatase Total Creatine Kinase Troponin I < 0.015 Total Protein Albumin Globulin Albumin/Globulin Ratio Lipase Procalcitonin COVID-19 Eval Order SARS-CoV-2 (PCR) Influenza Type A (PCR) Influenza Type B (PCR) RSV (RT-PCR) 11/11/20 11/11/20 11/11/20 05:04 05:04 06:05 WBC RBC Hgb Hct MCV MCH MCHC RDW Std Deviation RDW Coeff of Ivette Plt Count MPV Immature Gran % (Auto) Neut % (Auto) Lymph % (Auto) Dewey % (Auto) Eos % (Auto) Baso % (Auto) Neut # (Auto) Lymph # (Auto) Dewey # (Auto) Eos # (Auto) Baso # (Auto) Immature Gran # (Auto) RBC Morphology Sodium 140 Potassium 3.6 Chloride 108 H Carbon Dioxide 30 Anion Gap 2.0 L BUN 8 Creatinine 0.44 L Est Cr Clr Drug Dosing 157.1 Est GFR ( Amer) 141.9 Est GFR (Non-Af Amer) 122.4 BUN/Creatinine Ratio 17.7 Glucose 101 H POC Glucose 123 H Estimat Average Glucose 117 Hemoglobin A1c 5.7 H Lactate Calcium 8.5 Phosphorus Magnesium 1.9 Total Bilirubin Direct Bilirubin AST ALT Alkaline Phosphatase Total Creatine Kinase Troponin I Total Protein Albumin Globulin Albumin/Globulin Ratio Lipase Procalcitonin COVID-19 Eval Order SARS-CoV-2 (PCR) Influenza Type A (PCR) Influenza Type B (PCR) RSV (RT-PCR) 11/11/20 11:59 WBC RBC Hgb Hct MCV MCH MCHC RDW Std Deviation RDW Coeff of Ivette Plt Count MPV Immature Gran % (Auto) Neut % (Auto) Lymph % (Auto) Dewey % (Auto) Eos % (Auto) Baso % (Auto) Neut # (Auto) Lymph # (Auto) Dewey # (Auto) Eos # (Auto) Baso # (Auto) Immature Gran # (Auto) RBC Morphology Sodium Potassium Chloride Carbon Dioxide Anion Gap BUN Creatinine Est Cr Clr Drug Dosing Est GFR ( Amer) Est GFR (Non-Af Amer) BUN/Creatinine Ratio Glucose POC Glucose 127 H Estimat Average Glucose Hemoglobin A1c Lactate Calcium Phosphorus Magnesium Total Bilirubin Direct Bilirubin AST ALT Alkaline Phosphatase Total Creatine Kinase Troponin I Total Protein Albumin Globulin Albumin/Globulin Ratio Lipase Procalcitonin COVID-19 Eval Order SARS-CoV-2 (PCR) Influenza Type A (PCR) Influenza Type B (PCR) RSV (RT-PCR) (1) Colon cancer Colon location: unspecified part of colon Qualified Code(s): C18.9 - Malignant neoplasm of colon, unspecified
--- NOTE | 2020-11-11 16:23 | Hospitalist Progress Note ---
Date of Service November 11, 2020 Assessment & Plan (1) Intractable nausea and vomiting: Proctitis Perirectal abscess CT abd/pelvis showed persistent wall thickening of the rectum suggestive of a nonspecific proctitis. Additionally, there is a small peripherally enhancing air and fluid-filled 1.8 cm collection along the left lateral margin of the anal rectal junction which may represent a small abscess with intramural involvement. Gastro was consulted recommended conservative management Surgery on board recommended conservative management Continue abx with Unasyn and flagyl Will start on clear liquid diet once symptoms resolved Will monitor electrolytes Chest pain CTA chest showed no PE Troponin x 3 negative EKG showed no ischemic changes No LV wall motion abnormality with EF 60-65% Cardiology on board resolved Anemia Hgb 7.9 today Will monitor H/H and transfuse if hgb drops below 7 Hx Bacteremia Enterococcus Continue Unasyn for 3 weeks of IV Unasyn from 11/03/2020 Intermittent PVC on tele monitor EKG showed bradycardia Asymptomatic Hypotension Continue midodrine Hx Diabetes Most recent Hgba1c 5.7 Continue insulin sliding scale Deep venous thrombosis prophylaxis Continue Lovenox. CODE STATUS FULL CODE Admission and Anticipated Discharge Date Admission Date: November 10, 2020 Subjective Pt was seen and examined for follow up of nausea and vomiting Lying in bed with no acute distress Pt said that he still feels nauseated He said that he vomited early this morning He has been having intermittent PVC in tele monitor He said that he is not having any chest pain Denies any chest pain, palpitation, dizziness and SOB Review of Systems Review of Systems: All systems reviewed & are unremarkable except as noted in Subjective Physical Exam Physical Exam: General- No acute distress Head- atraumatic Eyes- PERRL, EOMI, ENT- oropharynx clear Neck- supple, no JVD Lungs- clear to auscultation Heart- regular rhythm; no murmur Abdomen- normal bowel sounds, soft, nontender Extremities- no calf tenderness Neuro- alert, oriented x 3; PERRL, EOMI; no facial palsy; no dysarthria Skin- warm & dry Results & Data Results & Data ([facility]) Vital Signs (Past 12 Hours) Vital Signs Temp Pulse Pulse Resp BP BP Pulse Ox 11/11/20 15:57 57 L 11/11/20 15:00 36.6 C 56 L 16 135/79 96 11/11/20 11:00 36.7 C 79 16 137/85 95 11/11/20 07:37 68 11/11/20 07:00 36.5 C 68 16 133/78 96 11/11/20 04:33 36.8 C 68 18 124/73 97
[2020-11-11] MEDS ORDERED: Nursing to Pharmacy Communication SCH (19:30)
[2020-11-11] MEDS: MIRTAZAPINE TAB 15 MG TAB PO SCH (20:54)
[2020-11-12] MEDS: AMPICILLIN/SULBACTAM SOD 3,000 MG in 0.9 % SODIUM CHLORIDE 100 ML IV SCH ×4 (02:17→19:33)
[2020-11-12] MEDS: metroNIDAZOLE 500 MG/100 ML BAG IV SCH ×3 (02:17→19:33)
[2020-11-12] MEDS: MoRPHine SULFATE CR 15 MG TABCR PO SCH ×2 (06:00→19:33)
[2020-11-12] MEDS: SODIUM CHLORIDE 0.9% 1000ML 1,000 ML IV SCH ×3 (07:01→22:17)
[2020-11-12 08:07] LABS: Hematocrit (blood only) 25.2 % (42-52); Hemoglobin 8.1 g/dL (14.0-18.0); Mean Corpuscular Hemoglobin 29.3 pg (25-34); Mean Corpuscular Hgb Conc 32.1 g/dL (32-36); Mean Corpuscular Volume 91.3 fL (80-100); RDW Coefficient of Variation 15.3 % (11.5-14.5); RDW Standard Deviation 51.6 fL (36.4-46.3); Red Blood Count 2.76 M/uL (4.7-6.1); White Blood Count 2.01 K/uL (4.8-10.8)
[2020-11-12] MEDS: MIDODRINE HCL 10 MG TAB PO SCH ×3 (08:13→16:58)
[2020-11-12] MEDS: MAGNESIUM OXIDE 400 MG TAB PO SCH ×2 (08:13→20:32)
[2020-11-12] MEDS: ONDANSETRON 8MG OD TAB PO PRN (08:14)
[2020-11-12] MEDS: CYANOCOBALAMIN 500 MCG TABLET (VITAMIN B-12) PO SCH (08:14)
[2020-11-12] MEDS: ADVANCED PROBIOTIC 1250 MG CAPSULE PO SCH ×3 (08:15→16:59)
[2020-11-12] MEDS: FERROUS SULFATE 325 MG TAB PO SCH ×2 (08:15→20:32)
[2020-11-12] MEDS: DOCUSATE SODIUM/SENNA 50/8.6MG TAB PO SCH ×2 (08:15→20:31)
[2020-11-12] MEDS: ENOXAPARIN 100 MG/1ML SYR SQ SCH (08:16)
[2020-11-12] MEDS: INSULIN ASPART 100 UNITS/ML 3 ML PEN SC SCH ×4 (08:28→20:44)
[2020-11-12 08:31] LABS: Mean Platelet Volume 8.6 fL (7.4-10.4); Platelet Count 65 K/uL (130-400)
[2020-11-12 08:37] LABS: BUN Creatinine Ratio 14.2 (10-20); Calcium 9.1 mg/dl (8.5-10.1); Creatinine Clr Calc Pharmacy 150.3 ml/min; Est GFR (African American) 139.3; Est GFR (Non-African American) 120.2; Magnesium 1.8 mg/dl (1.8-2.4); Potassium 3.5 mmol/L (3.5-5.1)
[2020-11-12 08:47] LABS: Thyroid Stimulating Hormone 0.477 uIu/ml (0.300-4.500)
--- NOTE | 2020-11-12 11:43 | Electrocardiogram Report ---
Test Reason : Blood Pressure : / mmHG Vent. Rate : 057 BPM Atrial Rate : 057 BPM P-R Int : 204 ms QRS Dur : 078 ms QT Int : 420 ms P-R-T Axes : 034 -23 001 degrees QTc Int : 408 ms Sinus bradycardia Minimal voltage criteria for LVH, may be normal variant Anteroseptal infarct , age undetermined Abnormal ECG When compared with ECG of 10-NOV-2020 11:45, Anteroseptal infarct is now Present T wave inversion now evident in Inferior leads Nonspecific T wave abnormality no longer evident in Lateral leads Confirmed by Heladio Cordova ([id number]) on 11/12/2020 11:42:49 AM Referred By: REFERRED SELF Confirmed By:Heladio Cordova
[2020-11-12] MEDS: ONDANSETRON INJ 2 MG/ML 2 ML VIAL IV PRN (15:59)
--- NOTE | 2020-11-12 18:01 | Hospitalist Progress Note ---
Date of Service November 12, 2020 Assessment & Plan (1) Intractable nausea and vomiting: Proctitis Perirectal abscess CT abd/pelvis showed persistent wall thickening of the rectum suggestive of a nonspecific proctitis. Additionally, there is a small peripherally enhancing air and fluid-filled 1.8 cm collection along the left lateral margin of the anal rectal junction which may represent a small abscess with intramural involvement. Gastro was consulted recommended conservative management Surgery on board recommended conservative management Continue abx with Unasyn and flagyl Diet advanced to Full liquid and tolerated Clinically improved Chest pain CTA chest showed no PE Troponin x 3 negative EKG showed no ischemic changes No LV wall motion abnormality with EF 60-65% Cardiology on board resolved Anemia Hgb 8.1 today Will monitor H/H and transfuse if hgb drops below 7 Hx Bacteremia Enterococcus Continue Unasyn for 3 weeks of IV Unasyn from 11/03/2020 ( last dose 11/24) Intermittent PVC on tele monitor EKG showed bradycardia Asymptomatic Hypotension Continue midodrine Hx Diabetes Most recent Hgba1c 5.7 Continue insulin sliding scale Thrombocytopenia Platelet 65 today Monitor for sign of bleeding Continue monitor CBC Deep venous thrombosis prophylaxis Continue Lovenox. CODE STATUS FULL CODE Admission and Anticipated Discharge Date Admission Date: November 10, 2020 Subjective Pt was seen and examined for follow up of nausea and vomiting Lying in bed with no acute distress Pt said that he feels much better today he said that he does not have any abdominal pain, nausea and vomiting His diet advanced to full liquid and tolerated well Denies any chest pain, palpitation, dizziness and SOB Review of Systems Review of Systems: All systems reviewed & are unremarkable except as noted in Subjective Physical Exam Physical Exam: General- No acute distress Head- atraumatic Eyes- PERRL, EOMI, ENT- oropharynx clear Neck- supple, no JVD Lungs- clear to auscultation Heart- regular rhythm; no murmur Abdomen- normal bowel sounds, soft, nontender Extremities- no calf tenderness Neuro- alert, oriented x 3; PERRL, EOMI; no facial palsy; no dysarthria Skin- warm & dry Results & Data Results & Data ([facility]) Vital Signs (Past 12 Hours) Vital Signs Temp Pulse Pulse Resp BP BP Pulse Ox 11/12/20 16:00 59 L 11/12/20 15:00 36.4 C L 50 L 18 133/77 98 11/12/20 11:00 36.3 C L 62 18 104/67 98 11/12/20 07:26 69 11/12/20 07:00 36.5 C 61 18 130/67 96
[2020-11-12] MEDS ORDERED: Nursing to Pharmacy Communication SCH (18:15)
[2020-11-12] MEDS: MIRTAZAPINE TAB 15 MG TAB PO SCH (20:32)
[2020-11-13] MEDS: AMPICILLIN/SULBACTAM SOD 3,000 MG in 0.9 % SODIUM CHLORIDE 100 ML IV SCH ×4 (02:21→20:32)
[2020-11-13] MEDS: metroNIDAZOLE 500 MG/100 ML BAG IV SCH ×3 (02:21→18:42)
[2020-11-13] MEDS: ONDANSETRON INJ 2 MG/ML 2 ML VIAL IV PRN ×2 (03:16→17:41)
[2020-11-13] MEDS: MoRPHine SULFATE CR 15 MG TABCR PO SCH ×2 (06:13→18:42)
[2020-11-13] MEDS: SODIUM CHLORIDE 0.9% 1000ML 1,000 ML IV SCH (06:14)
[2020-11-13] MEDS: PROMETHAZINE HCL 12.5 MG in SODIUM CHLORIDE 0.9% 50 ML IV PRN ×2 (06:45→20:34)
[2020-11-13] MEDS: ADVANCED PROBIOTIC 1250 MG CAPSULE PO SCH ×3 (08:34→17:41)
[2020-11-13] MEDS: CYANOCOBALAMIN 500 MCG TABLET (VITAMIN B-12) PO SCH (08:34)
[2020-11-13] MEDS: MIDODRINE HCL 10 MG TAB PO SCH ×3 (08:34→17:41)
[2020-11-13] MEDS: DOCUSATE SODIUM/SENNA 50/8.6MG TAB PO SCH ×2 (08:35→21:12)
[2020-11-13] MEDS: MAGNESIUM OXIDE 400 MG TAB PO SCH ×2 (08:35→21:13)
[2020-11-13] MEDS: FERROUS SULFATE 325 MG TAB PO SCH ×2 (08:35→21:12)
[2020-11-13] MEDS: ENOXAPARIN 100 MG/1ML SYR SQ SCH (08:36)
[2020-11-13] MEDS: INSULIN ASPART 100 UNITS/ML 3 ML PEN SC SCH ×4 (08:36→20:33)
[2020-11-13] MEDS: HEPARIN 100 UNIT/ML 5ML FLUSH FLUSH PRN ×2 (08:51→14:38)
[2020-11-13 09:28] LABS: BUN Creatinine Ratio 11.6 (10-20); Calcium 9.1 mg/dl (8.5-10.1); Creatinine Clr Calc Pharmacy 138.3 ml/min; Est GFR (African American) 130.4; Est GFR (Non-African American) 112.5; Magnesium 1.8 mg/dl (1.8-2.4); Potassium 3.5 mmol/L (3.5-5.1)
--- NOTE | 2020-11-13 17:16 | Hospitalist Progress Note ---
Date of Service November 13, 2020 Assessment & Plan (1) Intractable nausea and vomiting: Proctitis Perirectal abscess CT abd/pelvis showed persistent wall thickening of the rectum suggestive of a nonspecific proctitis. Additionally, there is a small peripherally enhancing air and fluid-filled 1.8 cm collection along the left lateral margin of the anal rectal junction which may represent a small abscess with intramural involvement. Gastro was consulted recommended conservative management Surgery on board recommended conservative management Continue abx with Unasyn and flagyl Diet advanced to Full liquid and tolerated Clinically improved Chest pain CTA chest showed no PE Troponin x 3 negative EKG showed no ischemic changes No LV wall motion abnormality with EF 60-65% Cardiology on board resolved Anemia Hgb 8.1 today Will monitor H/H and transfuse if hgb drops below 7 Hx Bacteremia Enterococcus Continue Unasyn for 3 weeks of IV Unasyn from 11/03/2020 ( last dose 11/24) Intermittent PVC on tele monitor EKG showed bradycardia Case discussed with cardiology that recommended no additional tested or meds Asymptomatic Hypotension Continue midodrine Hx Diabetes Most recent Hgba1c 5.7 Continue insulin sliding scale Pancytopenia Mostly related to chemo Platelet 65 Monitor for sign of bleeding Continue monitor CBC Deep venous thrombosis prophylaxis Continue Lovenox. CODE STATUS FULL CODE Admission and Anticipated Discharge Date Admission Date: November 10, 2020 Subjective Pt was seen and examined for follow up of nausea and vomiting Sitting at the edge of the bed with no acute distress Pt said that he feels nausea he said that nausea is not new because he had it in the last admission Tolerated full liquid diet Denies any chest pain, palpitation, dizziness and SOB Review of Systems Review of Systems: All systems reviewed & are unremarkable except as noted in Subjective Physical Exam Physical Exam: General- No acute distress Head- atraumatic Eyes- PERRL, EOMI, ENT- oropharynx clear Neck- supple, no JVD Lungs- clear to auscultation Heart- regular rhythm; no murmur Abdomen- normal bowel sounds, soft, nontender Extremities- no calf tenderness Neuro- alert, oriented x 3; PERRL, EOMI; no facial palsy; no dysarthria Skin- warm & dry Results & Data Results & Data ([facility]) Vital Signs (Past 12 Hours) Vital Signs Temp Pulse Pulse Resp BP Pulse Ox 11/13/20 16:00 74 11/13/20 14:40 36.6 C 65 18 112/73 98 11/13/20 10:57 36.5 C 70 18 107/69 98 11/13/20 07:47 64 11/13/20 06:50 36.5 C 60 18 133/79 97
[2020-11-13] MEDS: MIRTAZAPINE TAB 15 MG TAB PO SCH (21:12)
[2020-11-14] MEDS: AMPICILLIN/SULBACTAM SOD 3,000 MG in 0.9 % SODIUM CHLORIDE 100 ML IV SCH ×3 (02:03→14:02)
[2020-11-14] MEDS: metroNIDAZOLE 500 MG/100 ML BAG IV SCH ×2 (02:42→11:02)
[2020-11-14] MEDS: HEPARIN 100 UNIT/ML 5ML FLUSH FLUSH PRN ×2 (03:56→15:02)
[2020-11-14] MEDS: PROMETHAZINE HCL 12.5 MG in SODIUM CHLORIDE 0.9% 50 ML IV PRN (05:38)
[2020-11-14] MEDS: MoRPHine SULFATE CR 15 MG TABCR PO SCH (06:46)
[2020-11-14] MEDS: INSULIN ASPART 100 UNITS/ML 3 ML PEN SC SCH ×3 (08:00→17:03)
[2020-11-14] MEDS: MAGNESIUM OXIDE 400 MG TAB PO SCH (08:01)
[2020-11-14] MEDS: ADVANCED PROBIOTIC 1250 MG CAPSULE PO SCH ×3 (08:01→17:04)
[2020-11-14] MEDS: DOCUSATE SODIUM/SENNA 50/8.6MG TAB PO SCH (08:01)
[2020-11-14] MEDS: ENOXAPARIN 100 MG/1ML SYR SQ SCH (08:01)
[2020-11-14] MEDS: MIDODRINE HCL 10 MG TAB PO SCH ×3 (08:01→17:04)
[2020-11-14] MEDS: CYANOCOBALAMIN 500 MCG TABLET (VITAMIN B-12) PO SCH (08:01)
[2020-11-14] MEDS: FERROUS SULFATE 325 MG TAB PO SCH (08:01)
[2020-11-14 08:24] LABS: Hematocrit (blood only) 28.3 % (42-52); Mean Corpuscular Hemoglobin 29.1 pg (25-34); Mean Corpuscular Hgb Conc 31.8 g/dL (32-36); Mean Corpuscular Volume 91.6 fL (80-100); RDW Coefficient of Variation 15.3 % (11.5-14.5); RDW Standard Deviation 51.3 fL (36.4-46.3); Red Blood Count 3.09 M/uL (4.7-6.1); White Blood Count 2.45 K/uL (4.8-10.8)
[2020-11-14 08:43] LABS: Mean Platelet Volume 9.2 fL (7.4-10.4); Platelet Count 73 K/uL (130-400)
[2020-11-14] MEDS ORDERED: bisacodyL 5 MG TABEC PO ONE (13:54)
--- NOTE | 2020-11-14 17:16 | Hospitalist Progress Note ---
Date of Service November 14, 2020 Assessment & Plan (1) Intractable nausea and vomiting: Proctitis Perirectal abscess CT abd/pelvis showed persistent wall thickening of the rectum suggestive of a nonspecific proctitis. Additionally, there is a small peripherally enhancing air and fluid-filled 1.8 cm collection along the left lateral margin of the anal rectal junction which may represent a small abscess with intramural involvement. Gastro was consulted recommended conservative management Surgery on board recommended conservative management On abx with Unasyn and flagyl Tolerated low fiber diet Clinically improved Chest pain CTA chest showed no PE Troponin x 3 negative EKG showed no ischemic changes No LV wall motion abnormality with EF 60-65% Cardiology on board resolved Anemia Hgb 9.0 today Will monitor H/H and transfuse if hgb drops below 7 Hx Bacteremia Enterococcus Continue Unasyn for 3 weeks of IV Unasyn from 11/03/2020 ( last dose 11/24) Intermittent PVC on tele monitor EKG showed bradycardia Case discussed with cardiology that recommended no additional test or meds needed Asymptomatic Hypotension Continue midodrine Hx Diabetes Most recent Hgba1c 5.7 Continue insulin sliding scale Pancytopenia Mostly related to chemo Platelet 65 Monitor for sign of bleeding Continue monitor CBC Deep venous thrombosis prophylaxis Continue Lovenox. CODE STATUS FULL CODE Admission and Anticipated Discharge Date Admission Date: November 10, 2020 Subjective Pt was seen and examined for follow up of nausea and vomiting Sitting in bed with no distress Pt said that he feels fine He tolerated his diet He said that he has not had any bowel movement in the last few day Denies any chest pain, palpitation, dizziness and SOB Review of Systems Review of Systems: All systems reviewed & are unremarkable except as noted in Subjective Physical Exam Physical Exam: General- No acute distress Head- atraumatic Eyes- PERRL, EOMI, ENT- oropharynx clear Neck- supple, no JVD Lungs- clear to auscultation Heart- regular rhythm; no murmur Abdomen- normal bowel sounds, soft, nontender Extremities- no calf tenderness Neuro- alert, oriented x 3; PERRL, EOMI; no facial palsy; no dysarthria Skin- warm & dry Results & Data Results & Data ([facility]) Vital Signs (Past 12 Hours) Vital Signs Temp Pulse Pulse Resp BP Pulse Ox Pulse Ox 11/14/20 16:00 65 11/14/20 15:27 36.6 C 62 16 136/84 98 11/14/20 11:33 36.7 C 68 16 146/89 H 97 96 11/14/20 08:00 62 11/14/20 07:21 36.6 C 69 17 159/98 H 97
--- NOTE | 2020-11-21 23:00 | Discharge Summary ---
Date of Service November 14, 2020 Admission HPI Per Admitting Provider CHIEF COMPLAINT: Nausea, vomiting and also left-sided chest pain. HISTORY OF PRESENT ILLNESS: A 61-year-old male with past medical history significant for descending colon adenocarcinoma diagnosed in 09/2018, stage IV disease, currently on chemo, last chemo was last Friday, he gets chemo every other week, history of colonic stent, history of chemical colitis, history of type 2 diabetes, hyperlipidemia, cholelithiasis, splenomegaly, thrombocytopenia, supraclavicular and retroperitoneal lymphadenopathy,DVT, patient was diagnosed with pyelonephritis and pneumonia in end of August. We also placed him on midodrine for hypotension. He was again admitted to hospital in end september with Gram-negative bacteremia. He finished the course of antibiotics, Cipro and Flagyl and again, he was admitted to hospital on 10/28/2020 and discharged on 11/03/2020. At that time, he had a partial small-bowel obstruction, seen by GI, and was not a candidate for restenting as per GI. Improved with conservative management and also found to have bacteremia with enterococcus. Echo was okay, and he was discharged on Unasyn to complete 21 days, he is still getting Unasyn. The patient, in last 2 days he had chest pain, the day before was constant, yesterday was intermittent in the left side, but today the pain is resolved and he was having nausea, vomiting, which prompted him to come to the ER and get CT of the chest with no PE. Currently, chest pain is resolved. Nausea is improved with medication in the ER. CT scan showing colonic stent in place showing nonspecific proctitis and possible anal rectal junction small abscess. Currently hemodynamically stable, resting comfortably. Daughter in the room. The patient lives with the daughter and her boyfriend and ambulatory status is poor. He ambulates with a walker and support of the daughter and also get home health at home. Appetite is poor in last few days. Denies any cough, no fever, no chills, no headache, no blurred vision, no earache, no runny nose, no sore throat. Denies any shortness of breath. Since last night he had few episodes of vomiting. Denies any blood in the vomitus. Currently, no abdominal pain. He was constipated, but he was given mag citrate few days ago and after that he had a big bowel movement. Denies any blood in stools or black stools. Denies swelling in the legs, no rash seen. Admission Exam Per Admitting Provider GENERAL: The patient is of moderate build, not in acute distress. VITAL SIGNS: Temperature 36.8, pulse 65, respiratory rate 15, blood pressure 115/68, oxygen 97% room air. HEENT: Pupils equal, round, reactive to light. Oral mucosa moist. NECK: No JVD, no neck masses. CARDIOVASCULAR: S1, S2 heard, regular rate and rhythm, no murmur, no gallop. RESPIRATORY SYSTEM: Normal AP diameter. No accessory muscle use. No wheezing, no crackles. ABDOMEN: Soft, bowel sounds present. Mild left lower quadrant tenderness present, no guarding, no rigidity. No distension. CENTRAL NERVOUS SYSTEM: Alert and oriented. No facial droop. Speech is clear. Obeys simple commands. Moves extremities. EXTREMITIES: No edema, no erythema seen. Principal Diagnosis Intractable nausea and vomiting: Proctitis Perirectal abscess Chest pain Anemia Hx Bacteremia Enterococcus Intermittent PVC on tele monitor Hypotension Hx Diabetes Pancytopenia Discharge Exam General- No acute distress Head- atraumatic Eyes- PERRL, EOMI, ENT- oropharynx clear Neck- supple, no JVD Lungs- clear to auscultation Heart- regular rhythm; no murmur Abdomen- normal bowel sounds, soft, nontender Extremities- no calf tenderness Neuro- alert, oriented x 3; PERRL, EOMI; no facial palsy; no dysarthria Skin- warm & dry Discharge Data Allergies Allergy/AdvReac Type Severity Reaction Status Date / Time No Known Allergies Allergy Verified 11/15/20 16:14 Consultations 11/10/20 14:11 ED Decision to Admit Stat 11/10/20 18:35 Consult Gastroenterology Routine Consult General Surgery Routine 11/11/20 08:00 Consult Cardiology Routine Ordered Studies 11/10/20 11:58 CT abd pelvis IV con only Stat CT angio chest PE protocol Stat CT angio chest PE protocol, CT abd pelvis IV con only HISTORY: 60 years-old Male with chest/abd pain, metastatic ca PE. Acute chest and abdominal pain with metastatic colon cancer TECHNIQUE: Multiple CTA images of the chest were obtained after the intravenous administration of 110 ml Optiray. Coronal and sagittal MIPS were obtained from the axial data set and were submitted for review. All measurements were obtained according to NASCET criteria. CT abdomen and pelvis with IV contrast only was also obtained. A dose lowering technique was utilized adhering to the principles of ALARA. COMPARISON: Chest radiograph of same day, CT abdomen and pelvis 10/28/2020, chest CT 08/25/2020 FINDINGS: CTA: Moderate cardiomegaly. Trace pericardial effusion. Extensive coronary artery calcifications. Fusiform dilation of the ascending thoracic aorta is unchanged measuring 4.0 x 4.1 cm. No dissection. Patency of the imaged great vessels. Left subclavian [employer] catheter distal tip terminates within the inferior SVC. The pulmonary artery is opacified to the level of the proximal subsegmental bra nches and demonstrates no filling defects to suggest thromboembolic disease. CT CHEST: Unremarkable thyroid. Hilar lymph nodes measuring up to limits of normal at 9 mm, unchanged. Mildly prominent periaortic lymph nodes at the diaphragmatic hiatus measure up to 11 mm, unchanged from comparison suggestive of metastasis. No pneumothorax or pleural effusion. Bronchial wall thickening suggestive of bronchitis or reactive airway disease. Mucous plugging of the left lower lobe redemonstrated. Linear consolidation of the basal left lower lobe suggestive of atelectasis. Bibasilar predominant solid pulmonary nodules, largest which measures 3.4 cm and the basal left lower lobe on image 72 which is unchanged from the 10/28/2020 exam. 10 mm irregular nodule of the right middle lobe is stable. These findings however have progressed from the 08/25/2020 study. Unremarkable soft tissues with gynecomastia. No acute fracture or suspicious bone lesion. CT ABDOMEN/PELVIS: Splenomegaly measures up to 17.6 cm. Unremarkable adrenal glands. Mild to moderate pancreatic atrophy. Cholelithiasis with gallbladder distention and mild wall thickening. No biliary ductal dilation. Numerous hepatic metastasis, most which are subcentimeter in size appears similar to comparison. Patency of the hepatic and portal veins. Unremarkable right kidney. Asymmetric left renal atrophy. Nonobstructing calculi of the left kidney measure up to 7 mm. No ureteral calculi or hydronephrosis. Mild urinary bladder wall thickening with partial distention. No abdominal aortic aneurysm. Enlarged abdominal and pelvic lymph nodes redemonstrated with index left iliac chain lymph node on image 261 measuring 2.3 x 1.8 cm, stable from comparison. Mild wall thickening of the distal esophagus. There is no small bowel obstruction. A stent within the sigmoid colon extending across an annular lesion is in stable positioning. There is progressive pericolonic inflammation along the proximal portion of the stent. Wall thickening with mucosal hyperemia upstream to the stent redemonstrated. Persistent wall thickening of the rectum and anus with a 1.8 x 0.8 cm air and fluid-filled peripherally enhancing collection along the left lateral margin of the anorectal junction. No large bowel obstruction. There is moderate fecal retention. Normal appendix. Diffuse mesenteric and body wall edema. No acute fracture or new suspicious bone lesion. IMPRESSION: 1. Cardiomegaly without pulmonary emboli. 2. Pulmonary, lawson and hepatic metastasis appear generally stable from the 10/28/2020 exam. 3. Unchanged fusiform dilation of the ascending thoracic aorta, 4.1 x 4.0 cm. 4. Unchanged bronchial wall thickening with left lung base predominant mucus plugging. 5. Stable positioning of the colonic stent extending across the sigmoid colon lesion. No large bowel obstruction. 6. Persistent wall thickening of the rectum suggestive of a nonspecific proctitis. Additionally, there is a small peripherally enhancing air and fluid-filled 1.8 cm collection along the left lateral margin of the anal rectal junction which may represent a small abscess with intramural involvement. 7. Additional findings as above. ACT 112: Negative or not required by law. The above report was generated using voice recognition software. It may contain grammatical, syntax or spelling errors. Electronically signed by: Cornel Higgins M.D. 11/10/2020 1:44 PM Dictated: 11/10/20 1300Transcribed: 11/10/[address] angio chest PE protocol, CT abd pelvis IV con only HISTORY: 60 years-old Male with chest/abd pain, metastatic ca PE. Acute chest and abdominal pain with metastatic colon cancer TECHNIQUE: Multiple CTA images of the chest were obtained after the intravenous administration of 110 ml Optiray. Coronal and sagittal MIPS were obtained from the axial data set and were submitted for review. All measurements were obtained according to NASCET criteria. CT abdomen and pelvis with IV contrast only was also obtained. A dose lowering technique was utilized adhering to the principles of ALARA. COMPARISON: Chest radiograph of same day, CT abdomen and pelvis 10/28/2020, chest CT 08/25/2020 FINDINGS: CTA: Moderate cardiomegaly. Trace pericardial effusion. Extensive coronary artery calcifications. Fusiform dilation of the ascending thoracic aorta is unchanged measuring 4.0 x 4.1 cm. No dissection. Patency of the imaged great vessels. Left subclavian Piausm-d-Fsqg catheter distal tip terminates within the inferior SVC. The pulmonary artery is opacified to the level of the proximal subsegmental branches and demonstrates no filling defects to suggest thromboembolic disease. CT CHEST: Unremarkable thyroid. Hilar lymph nodes measuring up to limits of normal at 9 mm, unchanged. Mildly prominent periaortic lymph nodes at the diaphragmatic hiatus measure up to 11 mm, unchanged from comparison suggestive of metastasis. No pneumothorax or pleural effusion. Bronchial wall thickening suggestive of bronchitis or reactive airway disease. Mucous plugging of the left lower lobe redemonstrated. Linear consolidation of the basal left lower lobe suggestive of atelectasis. Bibasilar predominant solid pulmonary nodules, largest which measures 3.4 cm and the basal left lower lobe on image 72 which is unchanged from the 10/28/2020 exam. 10 mm irregular nodule of the right middle lobe is stable. These findings however have progressed from the 08/25/2020 study. Unremarkable soft tissues with gynecomastia. No acute fracture or suspicious bone lesion. CT ABDOMEN/PELVIS: Splenomegaly measures up to 17.6 cm. Unremarkable adrenal glands. Mild to moderate pancreatic atrophy. Cholelithiasis with gallbladder distention and mild wall thickening. No biliary ductal dilation. Numerous hepatic metastasis, most which are subcentimeter in size appears similar to comparison. Patency of the hepatic and portal veins. Unremarkable right kidney. Asymmetric left renal atrophy. Nonobstructing calculi of the left kidney measure up to 7 mm. No ureteral calculi or hydronephrosis. Mild urinary bladder wall thickening with partial distention. No abdominal aortic aneurysm. Enlarged abdominal and pelvic lymph nodes redemonstrated with index left iliac chain lymph node on image 261 measuring 2.3 x 1.8 cm, stable from comparison. Mild wall thickening of the distal esophagus. There is no small bowel obstruction. A stent within the sigmoid colon extending across an annular lesion is in stable positioning. There is progressive pericolonic inflammation along the proximal portion of the stent. Wall thickening with mucosal hyperemia upstream to the stent redemonstrated. Persistent wall thickening of the rectum and anus with a 1.8 x 0.8 cm air and fluid-filled peripherally enhancing collection along the left lateral margin of the anorectal junction. No large bowel obstruction. There is moderate fecal retention. Normal appendix. Diffuse mesenteric and body wall edema. No acute fracture or new suspicious bone lesion. IMPRESSION: 1. Cardiomegaly without pulmonary emboli. 2. Pulmonary, lawson and hepatic metastasis appear generally stable from the 10/28/2020 exam. 3. Unchanged fusiform dilation of the ascending thoracic aorta, 4.1 x 4.0 cm. 4. Unchanged bronchial wall thickening with left lung base predominant mucus plugging. 5. Stable positioning of the colonic stent extending across the sigmoid colon lesion. No large bowel obstruction. 6. Persistent wall thickening of the rectum suggestive of a nonspecific proctitis. Additionally, there is a small peripherally enhancing air and fluid- filled 1.8 cm collection along the left lateral margin of the anal rectal junction which may represent a small abscess with intramural involvement. 7. Additional findings as above. ACT 112: Negative or not required by law. The above report was generated using voice recognition software. It may contain grammatical, syntax or spelling errors. Electronically signed by: Cornel Higgins M.D. 11/10/2020 1:44 PM Dictated: 11/10/20 1300Transcribed: 11/10/20 1314 XR chest 1V portable CLINICAL HISTORY: Atypical chest pain COMPARISON STUDY: 10/27/2020 FINDINGS: The cardiac and mediastinal contours remain stable. There is a left- sided A-Port catheter. There is no failure. There is no lobar consolidation. There are no pleural effusions. Left basilar opacities remain similar to the prior study and likely represent atelectasis/scarring.[ IMPRESSION: No active disease in the chest. ACT 112: Negative or not required by law. Electronically signed by: Charanjit Velázquez M.D. 11/10/2020 12:55 PM Dictated: 11/10/20 1254Transcribed: 11/10/20 1254 Hospital Course (1) Intractable nausea and vomiting: Proctitis Perirectal abscess CT abd/pelvis showed persistent wall thickening of the rectum suggestive of a nonspecific proctitis. Additionally, there is a small peripherally enhancing air and fluid-filled 1.8 cm collection along the left lateral margin of the anal rectal junction which may represent a small abscess with intramural involvement. Gastro was consulted recommended conservative management Surgery on board recommended conservative management On abx with Unasyn and flagyl Tolerated low fiber diet Clinically improved Chest pain CTA chest showed no PE Troponin x 3 negative EKG showed no ischemic changes No LV wall motion abnormality with EF 60-65% Cardiology on board resolved Anemia Hgb 9.0 today Will monitor H/H and transfuse if hgb drops below 7 Hx Bacteremia Enterococcus Continue Unasyn for 3 weeks of IV Unasyn from 11/03/2020 ( last dose 11/24) Intermittent PVC on tele monitor EKG showed bradycardia Case discussed with cardiology that recommended no additional test or meds needed Asymptomatic Hypotension Continue midodrine Hx Diabetes Most recent Hgba1c 5.7 Continue insulin sliding scale Pancytopenia Mostly related to chemo Platelet 65 Monitor for sign of bleeding Continue monitor CBC Deep venous thrombosis prophylaxis Continue Lovenox. CODE STATUS FULL CODE Total Time Total Time Spent Total Time Spent (In Minutes): 35 minutes Total Time Includes: Examination of the Patient, Discharge Planning, Medication Reconciliation, Communication With Other Providers and Other Discharge Plan Discharge Items Patient Disposition: Home - Home Health Services Reason For Visit: NAUSEA/VOMITING, CHEST PAIN Discharge Diagnosis: Intractable nausea and vomiting: Proctitis Perirectal abscess Chest pain Anemia Hx Bacteremia Enterococcus Intermittent PVC on tele monitor Hypotension Hx Diabetes Pancytopenia Activity: Resume your previous activity Non-emergency contact: Primary Care Provider Call non-emergency contact if: you have any medication questions and your symptoms worsen Follow-up/Referrals: Duong Matt MD [Primary Care Provider] - (Date & Time 11/20/2020 11:20 AM Provider Duong Matt MD Department [facility] ) Diet: Heart Healthy and Low Fiber Addtl Attending Provider Instructions: Follow up with your primary care provider Vernell on 11/20/2020 @ 11:20 AM at the [facility] Continue physical and occupational therapy Continue antibiotic infusion with Unasyn until 11/24/20 Continue stool laxatives fall precaution Pending Studies at Discharge: No Stand-Alone Forms: [employer], Smoking Cessation Medications and DC Order Prescriptions: Continued pioglitazone [Actos] 30 mg Tablet 30 mg PO QAM RF: 0 prochlorperazine maleate [Compazine] 10 mg tablet 10 mg PO AMHS PRN (Reason: Nausea) RF: 0 oxycodone-acetaminophen 5-325 mg Tablet 1 tab PO Q6 PRN (Reason: Pain-Mild/Moderate) RF: 0 mirtazapine 15 mg tablet 15 mg PO HS RF: 0 ferrous sulfate 325 mg (65 mg iron) Tablet 325 mg PO BID RF: 0 diphenoxylate-atropine 2.5-0.025 mg tablet 1 tab PO QID PRN (Reason: Diarrhea) RF: 0 hyoscyamine sulfate [Levsin] 0.125 mg tablet 0.125 mg PO Q6H PRN (Reason: Cramping) RF: 0 cyanocobalamin (vitamin B-12) [Vitamin B-12] 500 mcg Tablet 500 mcg PO QAM RF: 0 morphine 15 mg tablet extended release 15 mg PO Q12H RF: 0 ondansetron HCl 8 mg tablet 8 mg PO Q8H PRN (Reason: Nausea And Vomiting) RF: 0 midodrine 10 mg Tablet 10 mg PO TID@0800,1200,1700 30 Days Qty: 90 RF: 3 Lactinex 1 million cell tablet,chewable 1 tab PO TIDM RF: 0 enoxaparin 100 mg/mL syringe 90 mg subcut DAILY RF: 0 ampicillin-sulbactam 3 gram recon soln 3 g IV Q6H 10 Days Qty: 40 RF: 0 sennosides [senna] 8.6 mg Tablet 8.6 mg PO DAILY RF: 0 magnesium hydroxide [Milk of Magnesia] 400 mg/5 mL Suspension 30 ml PO HS PRN (Reason: Constipation) RF: 0 docusate sodium [Colace] 100 mg Capsule 100 mg PO BID RF: 0 polyethylene glycol 3350 [Miralax] 17 gram Powder In Packet 17 g PO DAILY PRN (Reason: constipation) Qty: 30 RF: 0 sennosides-docusate sodium [Senokot-S] 8.6-50 mg Tablet 1 tab PO BID Qty: 60 RF: 0 Discharge Orders: Discharge Order (Routine); Ordered 11/14/20 Ordered By: Jase Ellis Admission Data Admit Date/Time: 11/10/20 15:35 Attending Provider: Jase Ellis Admit Provider: Joshua Hernandez Primary Care Provider: Duong Matt Other Providers: Joshua Hernandez ; Pricila Lu ; Bonilla Miguel ; Babita Vickers ; Clary Adame ; Dieudonne Diaz ; Christopher Mendez ; Tiesha Reddy ; Sherrie Mallory ; Michael Austin Jr ; Mack Everett ; Joss Hurst ; Sowmya Clark ; Robin Escoto ; Moo Neff ; Filipe Lee ; Simon Gutierrez ; Christopher Alvarez ; Bonilla Borjas ; Em Perez ; Yue Landry ; Catalina Rivas ; Fantasma Marcus ; Otis Ibrahim [facility] Other Interventions: Discharge Summary Assessment (RN) Last Done: 11/14/20 18:07
== END 2020-11-14 18:16 | disposition home health service (06) | DRG 393 ==
LOC: ED 11:35 → SUATTDRO 15:35 → 2N 15:35